=== PATIENT | female | born 1940 | race Caucasian/White ===

== ENCOUNTER 2016-11-23 05:38 | Outpatient (CLI) | payer MEDICARE, OTHER ==
[~2016-11-23] VITALS: Ht 152.4 cm; Wt 68.1 kg
[~2016-11-23 05:38] MED LIST: ANTI14DR4 OT; CEPH500C PO; CYAN500T2 PO; DIPH-639 PO; FAMO-119 PO; GABA-488 PO; HYDR-3820 PO; INSASP10V SC; INSU100V6 SQ; KETO120S5 TP; LISI-556 PO; LISI20TA PO; LORA0.5T PO; METH500T PO; METO25TA PO; METO5TAB75 PO; MULT-974 PO; OMEG1CAP51 PO; ONDA4TAB11 PO; OXYC-12 PO; PEG15DRO5 OU; PRAV20TA PO; SUCR1TAB36 PO; TAPE50TA11 PO; TEMA30CA PO; TIZA4TAB55 PO; VITA1CAP21 PO; ZOLP10TA5 PO; [UNRECOGNIZED DRUG - CODE] TP
== END 2016-11-23 13:52 ==
LOC: PREOP 05:38
PROVIDERS: ATTEND Surgery
DX: Z01.818 Encounter for other preprocedural examination (principal); R63.4 Abnormal weight loss; R13.10 Dysphagia, unspecified

== ENCOUNTER 2016-12-18 08:02 | Day surgery (SDC) | payer MEDICARE, OTHER ==
[~2016-12-18] VITALS: Ht 152.4 cm; Wt 68.1 kg
[2016-12-18] MEDS ORDERED: NS IV 1000 ML 1,000 ML IV STA (08:07)
[2016-12-18] MEDS ORDERED: MAGNESIUM CITRATE 300 ML BTL PO ONE ×2 (08:45→09:00)
[2016-12-18 09:07] VITALS: BP 149/91
[2016-12-19] MEDS ORDERED: PANT40TA2 PO (16:26)
== END 2016-12-18 09:00 | disposition home or self-care (01) ==
LOC: ENDO 08:02
PROVIDERS: ATTEND Surgery
DX: R63.4 Abnormal weight loss (principal); R13.10 Dysphagia, unspecified; Z53.8 Procedure and treatment not carried out for other reasons

== ENCOUNTER 2016-12-19 12:55 | Day surgery (SDC) | payer MEDICARE, OTHER ==
[~2016-12-19] VITALS: Ht 152.4 cm; Wt 68.1 kg
[2016-12-19] MEDS ORDERED: NS IV 1000 ML 1,000 ML ONE (12:59)
[2016-12-19] MEDS ORDERED: NS IV 1000 ML 1,000 ML IV STA (13:03)
[2016-12-19] MEDS ORDERED: NALOXONE 0.4 MG/ML 1 ML (NARCAN) VIAL IVP PRN (13:15)
[2016-12-19] MEDS ORDERED: MIDAZOLAM 2 MG/2 ML (VERSED) VIAL IVP PRN (13:15)
[2016-12-19] MEDS ORDERED: HURRICAINE EXT TUBE (BENZOCAINE) XX PRN (13:15)
[2016-12-19] MEDS ORDERED: FLUMAZENIL (ROMAZICON) 0.1 MG/ML 5 ML VIAL INJ PRN (13:15)
[2016-12-19] MEDS ORDERED: fentaNYL INJECTION 100 MCG/2 ML AMP IVP PRN (13:15)
--- NOTE | 2016-12-19 14:25 | Diagnostic Imaging Report ---
Three views of the left shoulder. INDICATION: Left shoulder pain after fall. FINDINGS: There is deformity along the inferior aspect of the left humeral head favored to be related to an old injury and degenerative changes. Subchondral sclerosis and joint space narrowing is also seen. No definite acute fracture. No radiopaque foreign body. 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 IMPRESSION: No acute fracture. Dictated by: Dictated on workstation # [id number]
--- NOTE | 2016-12-19 14:27 | Diagnostic Imaging Report ---
Three views of the right shoulder. INDICATION: Fall. FINDINGS: No fracture, dislocation or injury-related foreign body seen. There are surgical anchors along the humeral head noted. There is also a 7 mm ossification at the level of the rotator cuff may relate to prior injury. There is degenerative change at the glenohumeral and acromioclavicular joints with small inferior osteophytes. No acute fracture. IMPRESSION: Degenerative changes. No fracture seen. Dictated by: Dictated on workstation # [id number]
--- NOTE | 2016-12-19 14:39 | Diagnostic Imaging Report ---
PROCEDURE: CT head and CT cervical spine without contrast. TECHNIQUE: Multiple contiguous axial images were obtained through the brain and cervical spine without the use of intravenous contrast. Sagittal and coronal reformations through the cervical spine were then performed. INDICATION: Fall. Neck pain. Right eye bruising. FINDINGS: CT HEAD: There is no intracranial hemorrhage, edema or mass effect. There is periventricular and deep white matter hypodensities compatible with chronic microvascular ischemic changes. No hydrocephalus. No extra-axial fluid collection seen. The calvarium, the paranasal sinuses, and the orbits appear grossly unremarkable. CT CERVICAL SPINE: There is straightening of the cervical curvature. The alignment at the posterior spinal line and facet joints is satisfactory. The vertebral body heights are preserved. There is a anterior fusion changes involving the C3/C4 and C6/C7 levels with no definite osseous bridging seen at these levels. Posterior osteophytes at the C3/L4, C5/C6 and C6/C7 levels are seen. There is multilevel uncovertebral and facet joint hypertrophy with bilateral severe from neural foramina narrowing at C5/C6 and C6/C7. The alignment of the lateral masses of C1 and C2 and atlantooccipital joints is satisfactory. No widening of the predental space. No fracture seen. IMPRESSION: CT HEAD: No intracranial hemorrhage. Chronic white matter ischemic changes. CT CERVICAL SPINE: Advanced degenerative changes. No fracture seen. Dictated by: Dictated on workstation # [id number]
[2016-12-19] MEDS ORDERED: DEXTROSE 50% 50 ML (IMS) SYR ONE (14:45)
[2016-12-19] MEDS ORDERED: PROPOFOL INJECTION 50 ML IV ONE (14:48)
[2016-12-19] MEDS ORDERED: DEXTROSE 50% 50 ML (IMS) SYR IV ONE ×2 (15:00→16:30)
[2016-12-19] MEDS ORDERED: PHENYLEPHRINE 100 MCG/ML 10 ML (ANESTHESIA) SYR ONE (15:25)
[2016-12-19 16:15] VITALS: BP 94/70
[2016-12-19] MEDS ORDERED: PANT40TA2 PO (16:26)
--- NOTE | 2016-12-19 16:33 | Progress Note-Post Operative ---
Post-Operative Progess Note Surgeon (s)/Linting Machine Operator (s) Surgeon GENARO MCPHERSON DO Linting Machine Operator: na Pre-Operative Diagnosis dyphagia, weight loss Post-Operative Diagnosis gastritis, hiatal hernia, colon polyps Procedure & Operative Findings Date of Procedure 12/19/16 Procedure Preformed/Findings egd c biopsy colonoscopy with snare polypectomy x 2 and hot bx polypectomy x 3 Anesthesia Type per warp starter Estimated Blood Loss Estimated blood loss (mL): none Specimens/Packing Specimens Removed antrum, polyps of colon Packing: GENARO Gomez DO December 19, 2016 4:33 pm
[2016-12-19 16:40] VITALS: BP 118/84
[2016-12-19 16:49] VITALS: BP 118/84
--- NOTE | 2016-12-20 05:43 | OPERATIVE REPORT ---
DATE OF SERVICE: 12/19/2016 PREOPERATIVE DIAGNOSES: Dysphagia, weight loss. POSTOPERATIVE DIAGNOSES: Gastritis, hiatal hernia, colon polyps. PROCEDURE: EGD with biopsy and colonoscopy with snare polypectomy x2 and hot biopsy polypectomy x3. ANESTHESIA: Per [employer]. ESTIMATED BLOOD LOSS: None. COMPLICATIONS: None. INDICATIONS: The patient is a 76-year-old female with dysphagia and weight loss. She understands risks and benefits of procedure and wished to proceed. Consent was signed and on the chart. PROCEDURE: The patient was taken to the endoscopy suite, placed in left lateral recumbent position. Timeout was performed. Scope was inserted in mouth, down the esophagus, stomach and into the duodenum without difficulty. There are no polyps, mass or ulcerations within the duodenum. The scope was slowly retracted back into the stomach, where it was further insufflated, with erythematous changes consistent with gastritis. Biopsy of the antrum was obtained. The scope was retroflexed noting a small hiatal hernia. Scope was returned to its normal position noting no other pathology. Scope was then slowly retracted back into the distal esophagus. There are no polyps, masses or ulcerations present. The scope was slowly retracted until completely removed, noting no other pathology. Digital rectal exam was performed. There were no palpable polyps, masses or ulcerations. Scope was inserted in the rectum and advanced all way to the cecum with minimal difficulty. Prep was still particulate with liquids which was irrigated and suctioned, but still difficult to remove 100% of the substances. The terminal ileum was located. No polyps, masses or ulcerations were visualized within the cecum. The scope was slowly retracted back in the ascending colon, polyp was present, which snare polypectomy is performed. This was not able to be suctioned through the channel. Therefore, the scope had to be completely withdrawn removing the polyp. The scope was reinserted into the rectum and advanced all the way back to the cecum where the scope was then continued to be slowly retracted back. In the transverse colon there was no polyps, masses or ulcerations visualized. Within the descending colon there were 2 polyps present, which hot biopsy polypectomy was performed. Within the sigmoid colon there was another small polyp which hot biopsy polypectomy was performed. In the distal sigmoid colon, there was a large polyp present, which snare polypectomy was performed retrieving the scope to retrieve the polyp. The scope was then reinserted back into the rectum and brought out to the site of snare polypectomy. The scope was then slowly retracted back, noting no other pathology. Multiple insertions and retractions were made until the scope was finally removed. The patient tolerated procedure well without any complications. She was taken to the recovery room in stable condition. Would recommend repeat colonoscopy in one year due to the size of polyps and number of polyps. RECOMMENDATIONS: The patient will be started on Protonix 40 mg daily for the gastritis. The patient will follow up in the office in 2 weeks. Job ID: [id number] DocumentID: [id number] Dictated Date: 12/19/2016 16:36:18 Drying Tunnel Operator Date: 12/20/2016 05:43:04 Dictated By: GENARO MCPHERSON DO
== END 2016-12-19 16:48 | disposition home or self-care (01) ==
LOC: ENDO 12:55
PROVIDERS: ATTEND Surgery
DX: K29.70 Gastritis, unspecified, without bleeding (principal); K63.5 Polyp of colon; K44.9 Diaphragmatic hernia without obstruction or gangrene; I10 Essential (primary) hypertension; E11.9 Type 2 diabetes mellitus without complications; K21.9 Gastro-esophageal reflux disease without esophagitis; Z79.899 Other long term (current) drug therapy; M25.511 Pain in right shoulder; M25.512 Pain in left shoulder
CPT/HCPCS: 70450; 72125; 73030; 82962

== ENCOUNTER 2017-02-07 14:15 | Outpatient (RCR) | payer MEDICARE, OTHER ==
[~2017-02-07 14:15] MED LIST changes: +PANT40TA2 PO
== END 2017-03-27 11:49 | disposition home or self-care (01) ==
PROVIDERS: ATTEND Nurse Practitioner Family
DX: R53.1 Weakness (principal)

== ENCOUNTER 2017-07-26 14:18 | Emergency (ER) | payer MEDICARE ==
[~2017-07-26] VITALS: Ht 152.4 cm; Wt 63.5 kg
--- OUTSIDE RECORDS SUMMARY | 2017-07-26 14:27 | XMS REPORT | Clinical Summary ---
Author Author [facility] Organization [facility] Address Unknown Phone Unavailable Care Team Providers Care Technical Planner Name Role Phone PCP Unavailable Source Comments Some departments are not documenting in the electronic medical record. If you do not see the information that you expected, contact Release of Information in the Health Information Management department at [phone] for further assistance in locating additional records.[facility] Allergies Active Allergy Reactions Severity Noted Date Comments Aspirin UNKNOWN 02/24/2012 Triazolam UNKNOWN 02/24/2012 Halicion Current Medications Prescription Sig. Disp. Refills Start End Date Status Date HYPROMELLOSE (GENTEAL OP) Place into or around Active eye(s) as Needed. METOPROLOL SUCCINATE PO Take by mouth. Active LISINOPRIL PO Take by mouth. Active LOVASTATIN PO Take by mouth. Active OMEPRAZOLE PO Take by mouth. Active VENLAFAXINE HCL (EFFEXOR Take by mouth. Active PO) PREGABALIN (LYRICA PO) Take by mouth. Active ZOLPIDEM TARTRATE (AMBIEN Take by mouth. Active PO) OXYCODONE Take by mouth. Active HCL/ACETAMINOPHEN (PERCOCET PO) morphine IR (MSIR) 15 mg Take 15 mg by mouth every Active tablet 4 hours as needed. Insulin Glargine (LANTUS) Inject into area(s) as Active 100 unit/mL Crtg directed. INSULIN ASPART (NOVOLOG Inject into area(s) as Active SC) directed. Active Problems Problem Noted Date Nonproliferative diabetic retinopathy - both eyes 03/20/2012 Diabetic macular edema - left eye 03/20/2012 Overview: Partially responsive to Triessence, s/p Triessence x 5. Treated x 1 with BVCZ without response Dry eye syndrome 03/20/2012 Family History Medical History Relation Name Comments Cancer Diabetes everyone Hypertension Relation Name Status Comments Social History Tobacco Use Types Packs/Day Years Used Date Never Smoker Tobacco Cessation: Counseling Given: No Alcohol Use Drinks/Week oz/Week Comments Yes rare use of alcohol Sex Assigned at Date Recorded Not on file Last Filed Vital Signs Vital Sign Reading Time Taken Blood Pressure 131/77 03/20/2012 11:51 AM CDT Pulse 66 03/20/2012 11:51 AM CDT Temperature - - Respiratory Rate - - Oxygen Saturation - - Inhaled Oxygen - - Concentration Weight 94.3 kg (208 lb) 03/20/2012 11:51 AM CDT Height 152.4 cm (5') 03/20/2012 11:51 AM CDT Body Mass Index 40.62 03/20/2012 11:51 AM CDT Plan of Treatment Health Maintenance Due Date Last Done Comments PHYSICAL (COMPREHENSIVE) 1949 EXAM PERTUSSIS VACCINE 1953 TETANUS VACCINE 1959 DILATED EYE EXAM 1960 FOOT EXAM 1960 HBA1C 1960 MICROALBUMIN 1960 BREAST CANCER SCREENING 1982 COLORECTAL CANCER 1992 SCREENING SHINGLES VACCINE 2002 OSTEOPOROSIS SCREENING 2007 PREVNAR/PNEUMOVAX (#1) 2007 INFLUENZA VACCINE 03/12/2017 Results Not on filefrom Last 3 Months
--- OUTSIDE RECORDS SUMMARY | 2017-07-26 14:27 | XMS REPORT | Clinical Summary ---
Author Author [facility] Address Unknown Phone Unavailable Support Name Relationship Address Phone , Case,Linda ECON Unknown Allergies Active Allergy Reactions Severity Noted Date Comments Adhesive Tape 10/29/2013 Aspirin 10/29/2013 Triazolam 10/29/2013 Current Medications Prescription Sig. Disp. Refills Start End Date Status Date zolpidem (AMBIEN) 5 MG Take 10 mg by mouth Active tablet nightly as needed. venlafaxine (EFFEXOR-XR) Take 75 mg by mouth Active 75 MG 24 hr capsule daily. fish oil (OMEGA-3) 1000 Take 4,000 mg by mouth Active MG capsule daily. gabapentin (NEURONTIN) Take 300 mg by mouth 3 Active 300 MG capsule (three) times daily. LANTUS, insulin glargine, Inject 50 Units into the Active (LANTUS) 100 UNIT/ML skin daily. injection lovastatin (MEVACOR) 20 Take 20 mg by mouth Active MG tablet nightly. pregabalin (LYRICA) 50 MG Take 50 mg by mouth 3 Active capsule (three) times daily. metoprolol succinate Take 25 mg by mouth Active (TOPROL-XL) 25 MG 24 hr daily. tablet novoLOG, insulin aspart, Inject 100 Units into the Active (NOVOLOG) 100 UNIT/ML skin 3 (three) times injection daily before meals. 8 units before each meal Tapentadol HCl (NUCYNTA) Take 50 mg by mouth 2 Active 50 MG TB12 (two) times daily. oxycodone-acetaminophen Take 1 tablet by mouth Active (PERCOCET) 5-325 MG every 4 (four) hours as needed. phenazopyridine Take 100 mg by mouth 3 Active (PYRIDIUM) 100 MG tablet (three) times daily as needed. sertraline (ZOLOFT) 50 MG Take 50 mg by mouth Active tablet daily. temazepam (RESTORIL) 15 Take 15 mg by mouth Active MG capsule nightly as needed. traZODone (DESYREL) 50 MG Take 50 mg by mouth Active tablet nightly. tiZANidine (ZANAFLEX) 4 Take 4 mg by mouth every Active MG tablet 6 (six) hours as needed. Active Problems Problem Noted Date Hypotension (arterial) 11/01/2013 Mental status alteration 11/01/2013 Spinal stenosis 11/01/2013 Family History Medical History Relation Name Comments Cancer Brother Heart attack Brother Heart attack Maternal Grandmother Diabetes Mother Heart attack Mother Relation Name Status Comments Brother Maternal Grandmother Mother Social History Tobacco Use Types Packs/Day Years Used Date Never Smoker Alcohol Use Drinks/Week oz/Week Comments Yes twice a year Sex Assigned at Date Recorded Not on file Last Filed Vital Signs Vital Sign Reading Time Taken Blood Pressure 190/100 06/28/2014 1:38 PM [employer] Pulse - - Temperature - - Respiratory Rate - - Oxygen Saturation - - Inhaled Oxygen - - Concentration Weight 76.7 kg (169 lb) 06/28/2014 1:38 PM [employer] Height 152.4 cm (5') 10/29/2013 1:20 PM CDT Body Mass Index 33.01 06/28/2014 1:38 PM [employer] Plan of Treatment Health Maintenance Due Date Last Done Comments Diabetic Foot Exam 1952 Ophthalmology Exam 1952 DTaP,Tdap,and Td Vaccines 1961 (1 - Tdap) Breast Cancer 1992 Screening-Mammogram Colon Cancer Screening 1992 Zoster Vaccine (#1) 2002 Pneumo-Adult (1 of 2 - 2007 PCV13) Influenza Vaccine (#1) 2017 Results Not on filefrom Last 3 Months
--- OUTSIDE RECORDS SUMMARY | 2017-07-26 14:28 | XMS REPORT ---
Author Author LANIE BRINOES [facility] Address [address] [place] [address] Care Team Providers Care Warehouse Technician Name Role Phone LANIE BRIONES Unavailable PROBLEMS Type Condition ICD9-CM Code FFM40-AL Code Onset Dates Condition Status SNOMED Code Diagnosis Mixed hyperlipidemia E78.2 Active 053896239 Diagnosis Arthritis M19.90 Active 9444019 Diagnosis Essential (primary) hypertension I10 Active 84774042 Problem Type 2 diabetes mellitus with unspecified complications E11.8 Active 418418542 Problem Weight loss, unintentional R63.4 Active 949204287 Problem Dyspepsia R10.13 Active 983594082 Problem Generalized psoriasis L40.1 Active 484919531 Problem Type 2 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 Active 47026909 Problem Neuropathy G62.9 Active 467018512 Condition Depressive disorder, not elsewhere classified 311 Active 07726576 Problem 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 M79.7 Active 32561473 Diagnosis Gastro-esophageal reflux disease with esophagitis K21.0 Active 061911272 Diagnosis Anxiety F41.9 Active 16580644 Diagnosis Chronic pain syndrome G89.4 Active 34841219 Problem oil heaterman 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.4 Active 086759689 Problem Insomnia, unspecified G47.00 Active 962616692 ALLERGIES No Information SOCIAL HISTORY Never Assessed PLAN OF CARE VITAL SIGNS MEDICATIONS Unknown Medications RESULTS No Results PROCEDURES No Known procedures IMMUNIZATIONS No Known Immunizations MEDICAL (GENERAL) HISTORY Type Description Date Medical History Anxiety state, unspecified Medical History Other malaise and fatigue Medical History Essential hypertension, benign Medical History Diabetes with neurological manifestations, type II or unspecified type, not stated as uncontrolled Medical History Unspecified myalgia and myositis Medical History Other organic insomnia Medical History Other chronic pain Medical History Unspecified arthropathy, site unspecified Medical History Pain in joint, shoulder region Medical History Fractured Back 2013 Medical History Arthriis Medical History 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 Medical History Type 2 diabetes mellitus with unspecified complications Medical History Alopecia Surgical History cholecystectomy 2014 Surgical History shoulder arthroscopy, repaired torn rotator cuff on both shoulders 1972, 1977 Surgical History section 1979 Surgical History Neck surgery Surgical History EGD 2014 Hospitalization History Surgery(s) only
--- OUTSIDE RECORDS SUMMARY | 2017-07-26 14:29 | XMS REPORT ---
Author Author LANIE BRIONES [facility] Address [address] [place] [address] Care Team Providers Care Machine Shorthand Reporter Name Role Phone LANIE BRIONES Unavailable PROBLEMS Type Condition ICD9-CM Code DAM86-HO Code Onset Dates Condition Status SNOMED Code Problem Mixed hyperlipidemia E78.2 Active 278863847 Problem Arthritis M19.90 Active 9357790 Problem Essential (primary) hypertension I10 Active 14107726 Problem Type 2 diabetes mellitus with unspecified complications E11.8 Active 612064630 Problem Weight loss, unintentional R63.4 Active 139621969 Problem Dyspepsia R10.13 Active 213385187 Problem Generalized psoriasis L40.1 Active 493667144 Problem Type 2 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 Active 18462670 Problem Neuropathy G62.9 Active 899300093 Problem Depressive disorder, not elsewhere classified 311 Active 82048865 Problem 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 M79.7 Active 70065666 Problem Gastro-esophageal reflux disease with esophagitis K21.0 Active 832068903 Problem Anxiety F41.9 Active 03343103 Problem Chronic pain syndrome G89.4 Active 40021802 Problem exterminator termite 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.4 Active 412308233 Problem Insomnia, unspecified G47.00 Active 697333433 ALLERGIES Substance Reaction Event Type Date Status Halcion Unknown Drug Allergy Aug, Active Famotidine hair loss Drug Allergy Aug, Active Aspirin Abdominal pain Drug Allergy Aug, Active Tape Unknown Non Drug Allergy Aug, Active SOCIAL HISTORY No smoking Hx information available PLAN OF CARE Activity Details Follow Up 4 Weeks Reason:Pain VITAL SIGNS Height 61.5 in 2016-08-14 Weight 154.0 lbs 2016-08-14 Temperature 97.3 degrees Fahrenheit 2016-08-14 Heart Rate 90 bpm 2016-08-14 Respiratory Rate 18 2016-08-14 BMI 28.62 kg/m2 2016-08-14 Blood pressure systolic 138 mmHg 2016-08-14 Blood pressure diastolic 84 mmHg 2016-08-14 MEDICATIONS Medication Instructions Dosage Frequency Start Date End Date Duration Status Insulin Syringes (Disposable) 1 mL 3-4 TIMES DAILY DIRECTED DX 250.00 Active Multivitamin Aug, Active Levemir 100 UNIT/ML Subcutaneous 2 times a day 25 units 12h Active Hydrocodone-Acetaminophen 7.5-325 MG Orally 3 times a day- must last 28 days 1 tablet as needed Active Artificial Tears by ophthalmic route Aug, Active Restoril 30 MG Orally Once a day at night 1 capsule at bedtime as needed Active Zofran ODT 4 MG Orally every 8 hrs prn 1 tablet on the tongue and allow to dissolve Active NovoLog 100 UNIT/ML Subcutaneous 3 times a day with meals 13 units Active B Complex-Vitamin B12 Aug, Active OxyContin 15 MG Orally every 12 hrs 1 tablet 12h Aug, Aug, 28 days Active Lorazepam 2 MG Orally Once a day prn 1 tablet Active Lisinopril 5 MG Orally Once a day take 1 tablet by Oral route every 8 hours REPOSITORY 24h Active Bactroban 2 % Externally Three times a day 1 application to affected area 8h Aug, Active Lyrica 100 MG Orally Twice a day 1 capsule 12h Active Fish Oil 500 mg take 2 Capsule by Oral route 1 time per day Active [place] 31G X 6 MM as directed Active Pravastatin Sodium 20 MG Orally Once a day 1 tablet 24h Active RESULTS Name Result Date Reference Range A1C (IN HOUSE) 2016-08-14 A1C IN HOUSE 12.3 4.3 - 5.6 % Previous A1c 9.1 Lot 0649 Exp date 05/2018 CMP 2016-08-14 Glucose, Serum 531 65-99 BUN 18 8-27 Creatinine, Serum 0.79 0.57-1.00 eGFR If NonAfricn Am 74 >59 eGFR If Africn Am 86 >59 BUN/Creatinine Ratio 23 11-26 Sodium, Serum 133 134-144 Potassium, Serum 4.5 3.5-5.2 Chloride, Serum 91 96-106 Carbon Dioxide, Total 24 18-29 Calcium, Serum 9.5 8.7-10.3 Protein, Total, Serum 7.2 6.0-8.5 Albumin, Serum 4.4 3.5-4.8 Globulin, Total 2.8 1.5-4.5 A/G Ratio 1.6 1.1-2.5 Bilirubin, Total 0.5 0.0-1.2 Alkaline Phosphatase, S 154 39-117 AST (SGOT) 21 0-40 ALT (SGPT) 13 0-32 MICROALBUMIN, URINE (IN HOUSE) 2016-08-15 MICROALBUMIN abnormal Lot # [id number] Exp date Clarity clear Color yellow ALB 30mg/L CRE 50mg/dL A:C (IN HOUSE) 30-300mg/g Control Control Lot # Exp PROCEDURES Procedure Date Ordered Related Diagnosis Body Site GLYCATED HEMOGLOBIN TEST Aug 14, 2016 MICROALBUMIN, SEMIQUANT Aug 14, 2016 Office Visit, Est Pt., Level 4 Aug 14, 2016 [facility] VISIT ESTABLISHED PATIENT Aug 14, 2016 VENIPUNCT, ROUTINE* Aug 14, 2016 [facility] Aug 14, 2016 IMMUNIZATIONS No Known Immunizations
--- OUTSIDE RECORDS SUMMARY | 2017-07-26 14:29 | XMS REPORT ---
Author Author LANIE BRIONES Organization [facility] Address [address] [place] [address] Care Team Providers Care Smoking Pipe Maker Name Role Phone LANIE BRIONES Unavailable PROBLEMS Type Condition ICD9-CM Code AWA70-HS Code Onset Dates Condition Status SNOMED Code Diagnosis Mixed hyperlipidemia E78.2 Active 064956107 Diagnosis Arthritis M19.90 Active 2055465 Diagnosis Essential (primary) hypertension I10 Active 80344371 Problem Type 2 diabetes mellitus with unspecified complications E11.8 Active 525653439 Problem Weight loss, unintentional R63.4 Active 148871997 Problem Dyspepsia R10.13 Active 367058452 Problem Generalized psoriasis L40.1 Active 987776380 Problem Type 2 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 Active 31214253 Problem Neuropathy G62.9 Active 850433844 Condition Depressive disorder, not elsewhere classified 311 Active 29313753 Problem 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 M79.7 Active 16152392 Diagnosis Gastro-esophageal reflux disease with esophagitis K21.0 Active 642021487 Diagnosis Anxiety F41.9 Active 94864812 Diagnosis Chronic pain syndrome G89.4 Active 47545139 Problem harp regulator 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.4 Active 368374602 Problem Insomnia, unspecified G47.00 Active 888790726 ALLERGIES No Information SOCIAL HISTORY Never Assessed PLAN OF CARE VITAL SIGNS MEDICATIONS Unknown Medications RESULTS No Results PROCEDURES Procedure Date Ordered Result Body Site LAB NOT BILLED BY [facility] January 02, 2017 VENIPUNCT, ROUTINE* January 02, 2017 IMMUNIZATIONS No Known Immunizations MEDICAL (GENERAL) HISTORY [...]
--- OUTSIDE RECORDS SUMMARY | 2017-07-26 14:30 | XMS REPORT ---
Author Author LANIE BRIONES [facility] Address [address] [place] [address] Care Team Providers Care Pretzel Twister Name Role Phone LANIE BRIONES Unavailable PROBLEMS Type Condition ICD9-CM Code [id number] Code Onset Dates Condition Status SNOMED Code Problem Mixed hyperlipidemia E78.2 Active 397147215 Problem Arthritis M19.90 Active 4131536 Problem Essential (primary) hypertension I10 Active 60157660 Problem Type 2 diabetes mellitus with unspecified complications E11.8 Active 843372548 Problem Weight loss, unintentional R63.4 Active 175315068 Problem Dyspepsia R10.13 Active 388768576 Problem Generalized psoriasis L40.1 Active 595471792 Problem Type 2 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 Active 21554220 Problem Neuropathy G62.9 Active 697119012 Problem Depressive disorder, not elsewhere classified 311 Active 65060109 Problem 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 M79.7 Active 61338597 Problem Gastro-esophageal reflux disease with esophagitis K21.0 Active 539831140 Problem Anxiety F41.9 Active 49393726 Problem Chronic pain syndrome G89.4 Active 88763569 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 Active 203381932 Problem Insomnia, unspecified G47.00 Active 014371130 ALLERGIES Substance Reaction Event Type Date Status Halcion Unknown Drug Allergy Aug, Active Famotidine hair loss Drug Allergy Aug, Active Darvocet-N 100 hallucinations Drug Allergy Aug, Active Aspirin Abdominal pain Drug Allergy Aug, Active Tape Unknown Non Drug Allergy Aug, Active SOCIAL HISTORY No smoking Hx information available PLAN OF CARE Activity Details Follow Up 3 Months Reason:Pain/DM VITAL SIGNS Height 61.5 in 2016-09-11 Weight 153 lbs 2016-09-11 Temperature 97.5 degrees Fahrenheit 2016-09-11 Heart Rate 100 bpm 2016-09-11 Respiratory Rate 20 2016-09-11 BMI 28.44 kg/m2 2016-09-11 Blood pressure systolic 128 mmHg 2016-09-11 Blood pressure diastolic 76 mmHg 2016-09-11 MEDICATIONS Medication Instructions Dosage Frequency Start Date End Date Duration Status B Complex-Vitamin B12 Aug, Active Levemir 100 UNIT/ML Subcutaneous 2 times a day 25 units 12h Active Lyrica 100 MG Orally Twice a day 1 capsule 12h Active OxyContin 15 MG Orally every 12 hrs 1 tablet 12h Aug, 28 days Active Hydrocodone-Acetaminophen 7.5-325 MG Orally 3 times a day- must last 28 days 1 tablet as needed Active Pravastatin Sodium 20 MG Orally Once a day 1 tablet 24h Active Lisinopril 5 MG Orally Once a day take 1 tablet by Oral route every 8 hours REPOSITORY 24h Active [place] 31G X 6 MM as directed Active Zofran ODT 4 MG Orally every 8 hrs prn 1 tablet on the tongue and allow to dissolve Active NovoLog 100 UNIT/ML Subcutaneous 3 times a day with meals 13 units Active Artificial Tears by ophthalmic route Aug, Active Insulin Syringes (Disposable) 1 mL 3-4 TIMES DAILY DIRECTED DX 250.00 Active Restoril 30 MG Orally Once a day at night 1 capsule at bedtime as needed Active Fish Oil 500 mg take 2 Capsule by Oral route 1 time per day Active Lorazepam 2 MG Orally Once a day prn 1 tablet Active Multivitamin Aug, Active RESULTS Name Result Date Reference Range HEPATITIS PROFILE 2016-09-11 Hep A Ab, IgM Negative Negative HBsAg Screen Negative Negative Hep B Core Ab, IgM Negative Negative Hep C Virus Ab <0.1 0.0-0.9 PROCEDURES Procedure Date Ordered Related Diagnosis Body Site [facility] VISIT ESTABLISHED PATIENT Sep 11, 2016 Office Visit, Est Pt., Level 4 Sep 11, 2016 VENIPUNCT, ROUTINE* Sep 11, [address] [facility] Sep 11, 2016 IMMUNIZATIONS No Known Immunizations
--- OUTSIDE RECORDS SUMMARY | 2017-07-26 14:30 | XMS REPORT ---
Author Author LANIE BRIONES [facility] Address [address] [place] [address] Care Team Providers Care Mobile Sales Assistant Name Role Phone LANIE BRIONES Unavailable PROBLEMS Type Condition ICD9-CM Code [id number] Code Onset Dates Condition Status SNOMED Code Diagnosis Mixed hyperlipidemia E78.2 Active 200498248 Diagnosis Arthritis M19.90 Active 7476370 Diagnosis Essential (primary) hypertension I10 Active 07168747 Problem Type 2 diabetes mellitus with unspecified complications E11.8 Active 784249904 Problem Weight loss, unintentional R63.4 Active 063203341 Problem Dyspepsia R10.13 Active 117890959 Problem Generalized psoriasis L40.1 Active 533723358 Problem Type 2 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 Active 19726711 Problem Neuropathy G62.9 Active 138601926 Condition Depressive disorder, not elsewhere classified 311 Active 67193928 Problem 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 M79.7 Active 74203793 Diagnosis Gastro-esophageal reflux disease with esophagitis K21.0 Active 384611323 Diagnosis Anxiety F41.9 Active 90683358 Diagnosis Chronic pain syndrome G89.4 Active 91725833 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 Active 660876679 Problem Insomnia, unspecified G47.00 Active 405516090 ALLERGIES No Information SOCIAL HISTORY Never Assessed PLAN OF CARE VITAL SIGNS MEDICATIONS Medication Instructions Dosage Frequency Start Date End Date Duration Status OxyContin 15 MG Orally every 12 hrs 1 tablet 12h Aug, 28 days Active RESULTS No Results PROCEDURES Procedure Date Ordered Result Body Site FLUARIX QUAD P-FREE 3 AND UP .50 2015October 10, 2016 SINGLE IMMUNIZATION ADMIN October 10, 2016 IMMUNIZATIONS Vaccine Route Administration Date Status FLUARIX QUAD P-FREE 3 AND UP .50 2015 IM Intramuscular October 10, 2016 Administered MEDICAL (GENERAL) HISTORY Type Description Date Medical [...] repaired torn rotator cuff on both shoulders 1977 Surgical History section 1979 Surgical History Neck surgery Surgical History EGD 2014 Hospitalization History Surgery(s) only
--- OUTSIDE RECORDS SUMMARY | 2017-07-26 14:30 | XMS REPORT ---
Author Author LANIE BRIONES [facility] Address [address] [place] [address] Care Team Providers Care Bottom Stainer Name Role Phone LANIE BRIONES Unavailable PROBLEMS Type Condition ICD9-CM Code [id number] Code Onset Dates Condition Status SNOMED Code Problem Mixed hyperlipidemia E78.2 Active 529682831 Problem Arthritis M19.90 Active 4959943 Problem Essential (primary) hypertension I10 Active 47063705 Problem Type 2 diabetes mellitus with unspecified complications E11.8 Active 919972440 Problem Weight loss, unintentional R63.4 Active 878259258 Problem Dyspepsia R10.13 Active 584622860 Problem Generalized psoriasis L40.1 Active 174720939 Problem Type 2 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 Active 29990424 Problem Neuropathy G62.9 Active 807963277 Problem Depressive disorder, not elsewhere classified 311 Active 13908879 Problem 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 M79.7 Active 32786730 Problem Gastro-esophageal reflux disease with esophagitis K21.0 Active 360451352 Problem Anxiety F41.9 Active 99348303 Problem Chronic pain syndrome G89.4 Active 46817189 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
--- OUTSIDE RECORDS SUMMARY | 2017-07-26 14:31 | XMS REPORT ---
Author Author LANIE BRIONES [facility] Address [address] [place] [address] Care Team Providers Care Labor Law Professor Name Role Phone LANIE BRIONES Unavailable PROBLEMS Type Condition ICD9-CM Code QNP32-OV Code Onset Dates Condition Status SNOMED Code Diagnosis Mixed hyperlipidemia E78.2 Active 961864277 Diagnosis Arthritis M19.90 Active 9884311 Diagnosis Essential (primary) hypertension I10 Active 08436201 Problem Type 2 diabetes mellitus with unspecified complications E11.8 Active 596013090 Problem Weight loss, unintentional R63.4 Active 911017588 Problem Dyspepsia R10.13 Active 655771213 Problem Generalized psoriasis L40.1 Active 654381101 Problem Type 2 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 Active 97871477 Problem Neuropathy G62.9 Active 716324393 Condition Depressive disorder, not elsewhere classified 311 Active 96245632 Problem 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 M79.7 Active 81206727 Diagnosis Gastro-esophageal reflux disease with esophagitis K21.0 Active 249350270 Diagnosis Anxiety F41.9 Active 28189569 Diagnosis Chronic pain syndrome G89.4 Active 90539945 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
--- OUTSIDE RECORDS SUMMARY | 2017-07-26 14:32 | XMS REPORT ---
Author Author LANIE BRIONES [facility] Address [address] [place] [address] Care Team Providers Care Verifying Specialist Name Role Phone LANIE BRIONES Unavailable PROBLEMS Type Condition ICD9-CM Code [id number] Code Onset Dates Condition Status SNOMED Code Problem Arthritis M19.90 Active 5908843 Problem Anxiety F41.9 Active 55308510 Problem Mixed hyperlipidemia E78.2 Active 155419766 Problem Type 2 diabetes mellitus with unspecified complications E11.8 Active 568441551 Problem Weight loss, unintentional R63.4 Active 818124835 Problem Dyspepsia R10.13 Active 376857883 Problem Generalized psoriasis L40.1 Active 403599520 Problem Type 2 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 Active 13066587 Problem Neuropathy G62.9 Active 994791007 Problem Depressive disorder, not elsewhere classified 311 Active 91035960 Problem Insomnia, unspecified G47.00 Active 016890195 Problem Essential (primary) hypertension I10 Active 61815093 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 Active 835730942 Problem Chronic pain syndrome G89.4 Active 48477510 Problem 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 M79.7 Active 90231240 Problem Gastro-esophageal reflux disease with esophagitis K21.0 Active 455396396 ALLERGIES Unknown Allergies SOCIAL HISTORY No smoking Hx information available PLAN OF CARE VITAL SIGNS MEDICATIONS Medication Instructions Dosage Frequency Start Date End Date Duration Status Lorazepam 2 MG Orally Once a day prn 1 tablet Active Hydrocodone-Acetaminophen 7.5-325 MG Orally 3 times a day- must last 28 days 1 tablet as needed Active Temazepam 30 MG TAKE ONE CAPSULE BY MOUTH AT BEDTIME NEEDED Active RESULTS No Results PROCEDURES No Known procedures IMMUNIZATIONS No Known Immunizations
--- OUTSIDE RECORDS SUMMARY | 2017-07-26 14:32 | XMS REPORT ---
Author Author LANIE BRIONES [facility] Address [address] [place] [address] Care Team Providers Care Space Controller Name Role Phone LANIE BRIONES Unavailable PROBLEMS Type Condition ICD9-CM Code [id number] Code Onset Dates Condition Status SNOMED Code Problem Mixed hyperlipidemia E78.2 Active 351144912 Problem Arthritis M19.90 Active 3038651 Problem Essential (primary) hypertension I10 Active 07911047 Problem Type 2 diabetes mellitus with unspecified complications E11.8 Active 364254008 Problem Weight loss, unintentional R63.4 Active 175046397 Problem Dyspepsia R10.13 Active 908015143 Problem Generalized psoriasis L40.1 Active 259710492 Problem Type 2 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 Active 67484510 Problem Neuropathy G62.9 Active 849753464 Problem Depressive disorder, not elsewhere classified 311 Active 49540143 Problem 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 M79.7 Active 54240352 Problem Gastro-esophageal reflux disease with esophagitis K21.0 Active 290143253 Problem Anxiety F41.9 Active 16589484 Problem Chronic pain syndrome G89.4 Active 60435583 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
--- OUTSIDE RECORDS SUMMARY | 2017-07-26 14:33 | XMS REPORT | Continuity of Care Document ---
Author Author [facility] [employer] Organization [facility]. Address Unknown Phone Unavailable Allergies Active Description Code Type Severity Reaction Onset Reported/Identified Relationship to Patient Clinical Status Yes Aspirin X287 Drug Allergy Unknown STOMACH BURNING 04/30/2014 Yes PAIN PILL PAIN PILL Drug Allergy Unknown N/A 04/30/2014 Yes aspirin Drug Allergy N/A N/A 08/16/2014 Yes Halcion Drug Allergy N/A N/A 08/16/2014 Yes TAPE TAPE Mild RASH 11/23/2016 Yes aspirin [id number] Drug Allergy Unknown N/A 11/23/2016 Yes hydromorphone [id number] Drug Allergy Unknown N/A 11/23/2016 Yes triazolam [id number] Drug Allergy Unknown N/A 11/23/2016 Yes famotidine [id number] Drug Allergy Severe HAIR LOSS 01/04/2017 Medications There is no data. Problems Date Dx Coded Attending Type Code Diagnosis Diagnosed By 04/30/2014 Crescencio Knox 458.9 04/30/2014 Crescencio nKox 780.2 08/16/2014 NUVIA WINKLER APRN 401.1 HYPERTENSION, BENIGN ESSENTIAL 08/16/2014 NUVIA WINKLER APRN 780.79 OTHER MALAISE AND FATIGUE 08/16/2014 MADL SPECIAL EDUCATION CURRICULUM SPECIALIST, LANIE L 401.1 HYPERTENSION, BENIGN ESSENTIAL 08/16/2014 MADL SPECIAL EDUCATION CURRICULUM SPECIALIST, LANIE L 780.79 OTHER MALAISE AND FATIGUE 08/16/2014 MADL SPECIAL EDUCATION CURRICULUM SPECIALIST, LANIE L 401.1 HYPERTENSION, BENIGN ESSENTIAL 08/16/2014 MADL SPECIAL EDUCATION CURRICULUM SPECIALIST, LANIE L 780.79 OTHER MALAISE AND FATIGUE 08/16/2014 VIRAMONTES DO, CARY K 401.1 HYPERTENSION, BENIGN ESSENTIAL 08/16/2014 VIRAMONTES DO CARY K 780.79 OTHER MALAISE AND FATIGUE 08/18/2014 MADL SPECIAL EDUCATION CURRICULUM SPECIALIST, LANIE L 250.60 DIABETES WITH NEUROLOGICAL MANIFESTATIONS TYPE II OR UNSPECIFIED TYPE NOT STATED UNCONTROLLED 08/18/2014 MADL SPECIAL EDUCATION CURRICULUM SPECIALIST, LANIE L 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 08/18/2014 MADL SPECIAL EDUCATION CURRICULUM SPECIALIST, LANIE L 338.29 OTHER CHRONIC PAIN 08/18/2014 MADL SPECIAL EDUCATION CURRICULUM SPECIALIST, LANIE L 729.1 MYALGIA AND MYOSITIS UNSPECIFIED 08/18/2014 MADL SPECIAL EDUCATION CURRICULUM SPECIALIST, LANIE L 250.60 DIABETES WITH NEUROLOGICAL MANIFESTATIONS TYPE II OR UNSPECIFIED TYPE NOT STATED UNCONTROLLED 08/18/2014 MADL SPECIAL EDUCATION CURRICULUM SPECIALIST, LANIE L 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 08/18/2014 MADL SPECIAL EDUCATION CURRICULUM SPECIALIST, LANIE L 338.29 OTHER CHRONIC PAIN 08/18/2014 MADL SPECIAL EDUCATION CURRICULUM SPECIALIST, LANIE L 729.1 MYALGIA AND MYOSITIS UNSPECIFIED 08/18/2014 CARY VIRAMONTES DO K 250.60 DIABETES WITH NEUROLOGICAL MANIFESTATIONS TYPE II OR UNSPECIFIED TYPE NOT STATED UNCONTROLLED 08/18/2014 CARY VIRAMONTES DO 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 08/18/2014 CARY VIRAMONTES DO K 338.29 OTHER CHRONIC PAIN 08/18/2014 CARY VIRAMONTES DO 729.1 MYALGIA AND MYOSITIS UNSPECIFIED 08/25/2014 LANDON BARRIOS DO Ot 250.00 DIAB CRISS WO COMPL, TYPE II OR UNSPEC TY 08/25/2014 LANDON BARRIOS DO Ot 272.4 HYPERLIPIDEMIA NEC/NOS 08/25/2014 LANDON BARRIOS DO Ot 401.9 HYPERTENSION NOS 08/25/2014 LANDON BARRIOS DO Ot 564.00 UNSPEC CONSTIPATION 08/25/2014 LANDON BARRIOS DO Ot 571.8 CHRONIC LIVER DIS NEC 08/25/2014 LANDON BARRIOS DO, Ot 574.00 CHOLELITH W AC CHOLECYST 08/25/2014 LANDON BARRIOS DO Ot 599.0 URIN TRACT INFECTION NOS 08/25/2014 LANDON BARRIOS DO, Ot V58.67 LONG-TERM (CURRENT) USE OF INSULIN 09/16/2014 LANIE BRIONES APRN 300.00 ANXIETY UNSPEC 09/16/2014 CARY VIRAMONTES DO 300.00 ANXIETY UNSPEC 10/08/2014 CARY VIRAMONTES DO 716.90 ARTHRITIS/ ARTHROPATHY, UNSPECIFIED 10/08/2014 VIRAMONTES CARY K 719.41 PAIN IN JOINT INVOLVING SHOULDER REGION 11/10/2014 CHARLETTE CHAPPELL SPECIAL EDUCATION CURRICULUM SPECIALIST Ot 373.11 HORDEOLUM EXTERNUM 11/10/2014 CHARLETTE CHAPPELL SPECIAL EDUCATION CURRICULUM SPECIALIST Ot 379.93 REDNESS/DISCHARGE OF EYE 12/08/2014 JEANNE DANG MD Ot 250.00 DIAB CRISS WO COMPL, TYPE II OR UNSPEC TY 12/08/2014 JEANNE DANG MD Ot 272.4 HYPERLIPIDEMIA NEC/NOS 12/08/2014 JEANNE DANG MD Ot 355.9 MONONEURITIS NOS 12/08/2014 JEANNE DANG MD Ot 401.9 HYPERTENSION NOS 12/08/2014 JEANNE DANG MD Ot 584.9 ACUTE RENAL FAILURE, UNSPECIFIED 12/08/2014 JEANNE DANG MD Ot 805.2 FX DORSAL VERTEBRA-CLOSE 12/08/2014 JEANNE DANG MD Ot 816.01 FX MID/PRX PHAL, HAND-CL 12/08/2014 JEANNE DANG MD Ot 873.42 OPEN WOUND OF FOREHEAD 12/08/2014 JEANNE DANG MD Ot E000.8 OTHER EXTERNAL CAUSE STATUS 12/08/2014 JEANNE DANG MD Ot E849.0 ACCIDENT IN HOME 12/08/2014 JEANNE DANG MD Ot E885.9 FALL FROM SLIPPING, TRIPPING, OR STUMBLI 12/08/2014 JEANNE DANG MD Ot V06.1 [id number], COMBINED [ 12/08/2014 JEANNE DANG MD Ot V15.88 HISTORY OF FALL 12/08/2014 JEANNE DANG MD Ot V58.67 LONG-TERM (CURRENT) USE OF INSULIN 12/08/2014 JEANNE DANG MD Ot V58.69 OT MED,LT,CURRENT USE 01/10/2015 AKHIL MCCOY DO Ot 723.0 02/02/2015 AKHIL MCCOY DO Ot 723.0 02/14/2015 AKHIL MCCOY DO Ot 723.0 02/14/2015 SELENA JEFFERSON MD Ot 338.4 CHRONIC PAIN SYNDROME 02/14/2015 SELENA JEFFERSON MD Ot 722.52 LUMB/LUMBOSAC DISC DEGEN 02/14/2015 SELENA JEFFERSON MD Ot 729.1 MYALGIA AND MYOSITIS NOS 02/14/2015 SELENA JEFFERSON MD Ot V58.69 OT MED,LT,CURRENT USE 04/06/2015 NADINE DO AKHIL Aniket Ot 723.0 04/06/2015 LANDON MISHRA DO Ot 250.61 DIAB W NEURO MANIFEST, TYPE I [JUVENILE 04/06/2015 LANDON MISHRA DO Ot 536.3 GASTROPARESIS 04/06/2015 LANDON MISHRA DO Ot 787.01 NAUSEA WITH VOMITING 07/18/2015 AKHIL MCCOY DO Ot 723.0 07/19/2015 CHARLETTE CHAPPELL APRN Ot F17.210 NICOTINE DEPENDENCE, CIGARETTES, UNCOMPL 07/19/2015 CHARLETTE CHAPPELL APRN Ot L21.9 SEBORRHEIC DERMATITIS, UNSPECIFIED 07/19/2015 AKHIL MCCOY DO Ot 723.0 07/19/2015 AKHIL MCCOY DO Ot 723.0 07/19/2015 AKHIL MCCOY DO Ot 723.0 11/02/2015 AKHIL MCCOY DO Ot 723.0 11/02/2015 AKHIL MCCOY DO Ot 723.0 11/18/2015 AKHIL MCCOY DO Ot 723.0 11/18/2015 SELENA JEFFERSON MD Ot M51.16 INTERVERTEBRAL DISC DISORDERS W RADICULO 11/18/2015 SELENA JEFFERSON MD Ot Z79.899 OTHER TRAINING INTERN (CURRENT) DRUG THERAPY 06/08/2016 AKHIL MCCOY DO Ot 723.0 CERVICAL SPINAL STENOSIS 06/12/2016 AKHIL CMCOY DO Ot M48.06 SPINAL STENOSIS, LUMBAR REGION 06/12/2016 AKHIL MCCOY DO Ot M54.9 DORSALGIA, UNSPECIFIED 06/12/2016 AKHIL MCCOY DO Ot M80.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 W CURRENT PATH FRACTURE 06/14/2016 AKHIL MCCOY DO Ot M48.06 SPINAL STENOSIS, LUMBAR REGION 06/14/2016 AKHIL MCCOY DO Ot M54.9 DORSALGIA, UNSPECIFIED 06/14/2016 AKHIL MCCOY DO Ot M80.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 W CURRENT PATH FRACTURE 06/29/2016 AKHIL MCCOY DO Ot M48.06 SPINAL STENOSIS, LUMBAR REGION 06/29/2016 AKHIL MCCOY DO Ot M54.9 DORSALGIA, UNSPECIFIED 06/29/2016 AKHLI MCCOY DO Ot M80.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 W CURRENT PATH FRACTURE 09/24/2016 AKHIL MCCOY DO Ot M48.06 SPINAL STENOSIS, LUMBAR REGION 09/24/2016 AKHIL MCCOY DO Ot M54.9 DORSALGIA, UNSPECIFIED 09/24/2016 AKHIL MCCOY DO Ot M80.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 W CURRENT PATH FRACTURE 11/23/2016 GENARO MCPHERSON DO Ot R13.10 DYSPHAGIA, UNSPECIFIED 11/23/2016 GENARO MCPHERSON DO Ot R63.4 ABNORMAL WEIGHT LOSS 11/23/2016 GENARO MCPHERSON DO Ot Z01.818 ENCOUNTER FOR OTHER PREPROCEDURAL EXAMIN 11/26/2016 GENARO MCPHERSON DO Ot R13.10 DYSPHAGIA, UNSPECIFIED 11/26/2016 GENARO MCPHERSON DO Ot R63.4 ABNORMAL WEIGHT LOSS 11/26/2016 GENARO MCPHERSON DO Ot Z01.818 ENCOUNTER FOR OTHER PREPROCEDURAL EXAMIN 12/18/2016 GENARO MCPHERSON DO Ot R13.10 DYSPHAGIA, UNSPECIFIED 12/18/2016 GENARO MCPHERSON DO Ot R63.4 ABNORMAL WEIGHT LOSS 12/18/2016 GENARO MCPHERSON DO Ot Z53.8 PROCEDURE AND TREATMENT NOT CARRIED OUT 12/19/2016 GENARO MCPHERSON DO Ot R13.10 DYSPHAGIA, UNSPECIFIED 12/19/2016 GENARO MCPHERSON DO Ot R63.4 ABNORMAL WEIGHT LOSS 12/19/2016 GENARO MCPHERSON DO Ot Z53.8 PROCEDURE AND TREATMENT NOT CARRIED OUT 12/19/2016 GENARO MCPHERSON DO Ot E11.9 TYPE 2 DIABETES MELLITUS WITHOUT COMPLIC 12/19/2016 GENARO MCPHERSON DO Ot I10 ESSENTIAL (PRIMARY) HYPERTENSION 12/19/2016 GENARO MCPHERSON DO Ot K21.9 GASTRO-ESOPHAGEAL REFLUX DISEASE WITHOUT 12/19/2016 GENARO MCPHERSON DO Ot K29.70 GASTRITIS, UNSPECIFIED, WITHOUT BLEEDING 12/19/2016 GENARO MCPHERSON DO Ot K44.9 DIAPHRAGMATIC HERNIA WITHOUT OBSTRUCTION 12/19/2016 GENARO MCPHERSON DO Ot K63.5 POLYP OF COLON 12/19/2016 GENARO MCPHERSON DO Ot M25.511 PAIN IN RIGHT SHOULDER 12/19/2016 GENARO MCPHERSON DO Ot M25.512 PAIN IN LEFT SHOULDER 12/19/2016 GENARO MCPHERSON DO Ot Z79.899 OTHER TRAINING INTERN (CURRENT) DRUG THERAPY 12/20/2016 GENARO MCPHERSON DO Ot E11.9 TYPE 2 DIABETES MELLITUS WITHOUT COMPLIC 12/20/2016 GENARO MCPHERSON DO Ot I10 ESSENTIAL (PRIMARY) HYPERTENSION 12/20/2016 GENARO MCPHERSON DO Ot K21.9 GASTRO-ESOPHAGEAL REFLUX DISEASE WITHOUT 12/20/2016 GENARO MCPHERSON DO Ot K29.70 GASTRITIS, UNSPECIFIED, WITHOUT BLEEDING 12/20/2016 GENARO MCPHERSON DO Ot K44.9 DIAPHRAGMATIC HERNIA WITHOUT OBSTRUCTION 12/20/2016 GENARO MCPHERSON DO Ot K63.5 POLYP OF COLON 12/20/2016 GENARO MCPHERSON DO Ot M25.511 PAIN IN RIGHT SHOULDER 12/20/2016 GENARO MCPHERSON DO Ot M25.512 PAIN IN LEFT SHOULDER 12/20/2016 GENARO MCPHERSON DO Ot Z79.899 OTHER GROUP HOME (CURRENT) DRUG THERAPY 03/20/2017 GENARO MCPHERSON DO Ot R13.10 DYSPHAGIA, UNSPECIFIED 03/20/2017 GENARO MCPHERSON DO Ot R63.4 ABNORMAL WEIGHT LOSS 03/20/2017 GENARO MCPHERSON DO Ot Z53.8 PROCEDURE AND TREATMENT NOT CARRIED OUT 03/27/2017 LANIE BRIONES Ot R53.1 WEAKNESS 04/04/2017 AKHIL MCCOY DO Ot 723.0 CERVICAL SPINAL STENOSIS 04/04/2017 AKHIL MCCOY DO Ot M48.06 SPINAL STENOSIS, LUMBAR REGION 04/04/2017 AKHIL MCCOY DO Ot M54.9 DORSALGIA, UNSPECIFIED 04/04/2017 AKHIL MCCOY DO Ot M80.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 W CURRENT PATH FRACTURE Procedures Code Description [place] [address] ROUTINE VENIPUNCTURE 08/18/2014 28620 TSH 08/18/2014 53004 AMERITOX 08/18/2014 46883 A1C (IN-HOUSE) 08/18/2014 93198 MICRO ALBUMIN-IN HOUSE 08/18/2014 03608 CBC 08/18/2014 83066 CMP 08/18/2014 1635126 GFR CALC (RESULT ONLY) 08/18/2014 56772 MICROALBUMIN 08/18/2014 51.23 LAPAROSCOPIC CHOLECYSTECTOMY 08/24/2014 87.53 INTRAOPER CHOLANGIOGRAM 08/24/2014 Results Test Result Range Capillary blood glucose measurement by glucometer (mass/volume) - 12/19/16 14: 45 Capillary blood glucose measurement by glucometer (mass/volume) 72 mg/dL 70-110 Capillary blood glucose measurement by glucometer (mass/volume) - 12/19/16 16: 03 Capillary blood glucose measurement by glucometer (mass/volume) 101 mg/dL 70-110 Encounters ACCT No. Visit Date/Time Discharge Status Pt. Type Provider Facility Loc./Unit Complaint [id number] 04/30/2014 12:09:00 04/30/2014 15:24:00 DIS Outpatient Crescencio Knox [facility] COL.RAD [id number] 10/07/2014 13:58:00 Document Registration [id number] 09/24/2014 12:47:00 Document Registration [id number] 09/24/2014 12:47:00 Document Registration [id number] 11/05/2014 13:36:00 11/05/2014 23:59:59 CLS Outpatient CARY VIRAMONTES DO [id number] 09/16/2014 15:41:00 09/16/2014 23:59:59 CLS Outpatient LANIE BRIONES APRN [id number] 08/18/2014 08:53:00 08/18/2014 23:59:59 CLS Outpatient LANIE BRIONES APRN [id number] 08/16/2014 15:22:00 08/16/2014 23:59:59 CLS Outpatient NUVIA WINKLER APRN [id number] 02/07/2017 14:15:00 03/27/2017 11:49:00 DIS Outpatient LANIE BRIONES REPRESENTATIVE PHLEBOTOMY SERVICES [facility] REHAB WEAKNESS AND GAIT INSTABILITY [id number] 03/06/2017 12:00:00 03/06/2017 23:59:59 CLS Preadmit MADL, LANIE L REPRESENTATIVE PHLEBOTOMY SERVICES [facility] CARD SYSTOLIC MURMUR [id number] 12/19/2016 12:55:00 12/19/2016 16:48:00 DIS Outpatient GENARO MCPHERSON DO [facility] ENDO SCREENING [id number] 12/18/2016 08:02:00 12/18/2016 09:00:00 DIS Outpatient GENARO MCPHERSON DO [facility] ENDO WEIGHT LOSS, DYSPHAGIA [id number] 12/13/2016 14:00:00 12/13/2016 14:00:00 CAN Preadmit GENARO MCPHERSON DO [facility] PREOP COLONOSCOPY,EGD [id number] 11/23/2016 05:38:00 11/23/2016 13:52:00 DIS Outpatient GENARO MCPHERSON DO [facility] PREOP SCREENING [id number] 06/22/2016 11:34:00 06/22/2016 23:59:59 CLS Preadmit MADTAMMY CurielA L REPRESENTATIVE PHLEBOTOMY SERVICES [facility] REHAB STRENGTHENING AND MOBILITY [id number] 06/08/2016 11:13:00 06/08/2016 23:59:59 CLS Outpatient AKIHL MCCOY DO [facility] RAD BACK PAIN [id number] 11/18/2015 09:03:00 11/18/2015 10:37:00 DIS Outpatient SELENA JEFFERSON MD [facility] CARD DISC DISORDER WITH LUMBAR RADICULOPATHY [id number] 07/19/2015 14:16:00 07/19/2015 14:47:00 DIS Emergency CHARLETTE CHAPPELL APRN [facility] ER SCALP ITCHING/PAIN HAIR LOSS [id number] 04/06/2015 12:42:00 04/06/2015 17:43:00 DIS Emergency LANDON MISHRA DO [facility] ER NAUSEA/VOMITING ABD PAIN [id number] 02/14/2015 13:07:00 02/14/2015 13:57:00 DIS Outpatient SELENA JEFFERSON MD [facility] CARD DDD LUMBAR [id number] 01/06/2015 10:18:00 01/06/2015 23:59:59 CLS Outpatient AKHIL MCCOY DO [facility] RAD NECK PAIN [id number] 12/06/2014 13:24:00 12/08/2014 14:30:00 DIS Inpatient ALTON AMADOR, JEANNE Marcial [facility] SURGICAL FALL; CLOSED HEAD INJURY; HAND FX; DEBILITY [id number] 11/10/2014 17:49:00 11/10/2014 18:17:00 DIS Emergency CHARLETTE CHAPPELL APRN [facility] ER LEFT EYE IRRITATION [id number] 08/24/2014 05:42:00 08/25/2014 16:05:00 DIS Inpatient LANDON BARRIOS DO [facility] SURGICAL ACUTE CHOLECYSTITIS,CHOLELITHIASIS,N/V [id number] 07/26/2017 14:22:00 ACT Emergency SANGEETHA AMADOR, RACHELE Portillo [facility] ER NEEDS PAIN/ALL MEDS REFILLED
--- NOTE | 2017-07-26 14:49 | ED General ---
General Stated Complaint: NEEDS PAIN/ALL MEDS REFILLED Source of Information: Patient Exam Limitations: No Limitations History of Present Illness Time Seen by Provider: 14:44 Initial Comments To ER with c/o being out of her Temazepam, lorazepam, lyrica, oxycontin, norco 7.5. Sees Patstevan Salgado at [facility] but doesnt have appointment until august. Sates that she had family friends who are doctors who gave her a few "Samples" to get her thru when she initially ran out a few weeks ago, also got some from a heating and ventilating drafter in [place] a few weeks ago while she was there. States morin called [facility] who referred her to ER for refills. Timing/Duration: 1-2 Days Severity: Moderate Allergies and Home Medications Allergies Coded Allergies: famotidine (Verified Allergy, Severe, HAIR LOSS, 01/04/17) NOTIFIED ON 01/02/17 TO MEDICAL RECORDS aspirin (Unverified Allergy, Unknown, 11/23/16) hydromorphone (Unverified Allergy, Unknown, 11/23/16) triazolam (Unverified Allergy, Unknown, 11/23/16) Uncoded Allergies: TAPE (Allergy, Mild, RASH, 11/23/16) Home Medications Cyanocobalamin 500 Mcg Tablet, 1,000 MCG PO HS, (Reported) Diphenhydramine HCl 25 Mg Capsule, 25 MG PO HS PRN for SLEEP, (Reported) Fluocinolone Acetonide 120 Ml Shampoo, 120 ML TP UD, #1 Lather hair daily x1 week for 5 minutes Prescribed by: CHARLETTE CHAPPELL on 07/19/15 1442 Gabapentin 300 Mg Capsule, 300 MG PO TID, (Reported) Hydrocodone/Acetaminophen 1 Each Tablet, 2 EACH PO Q4H PRN for PAIN, (Reported) Insulin Aspart 10 Unit/0.1 Ml Susp, 8 UNIT SC AC, (Reported) Insulin Aspart 10 Unit/0.1 Ml Susp, SC Q4H PRN for BLOOD SUGAR, (Reported) CHECKS BLOOD SUGAR EVERY 4 HOURS USES SLIDING SCALE NEEDED IF BS < 200 = 0 UNITS 200-299 = 2 UNITS 300-349 = 5 UNITS 350-399 = 8 UNITS > 400 = 12 UNITS Insulin Glargine,Hum.rec.anlog 100 Unit/1 Ml Vial, 30 UNIT SQ HS, (Reported) Ketoconazole 120 Ml Shampoo, 120 ML TP UD, #1 Shampoo hair on Tuesdays and Saturdays for 4 weeks. Prescribed by: CHARLETTE CHAPPELL on 07/19/15 1442 Lisinopril 5 Mg Tablet, 5 MG PO DAILY PRN for BLOOD PRESSURE, (Reported) Lorazepam 0.5 Mg Tablet, 0.5 MG PO HS, (Reported) Methocarbamol 500 Mg Tablet, 500 MG PO BID, (Reported) Metoclopramide HCl 5 Mg Tablet, 5 MG PO AC, #60 Ref 0 Prescribed by: LANDON MISHRA on 04/06/15 1725 Multivitamin 1 Each Tablet, 1 TAB PO HS, (Reported) [place]-3 Fatty Acids/Fish Oil 1 Each Capsule, 1,000 MG PO HS, (Reported) Ondansetron 4 Mg Tab.rapdis, 4 MG PO Q4H PRN for NAUSEA/VOMITING, (Reported) Pantoprazole Sodium 40 Mg Tablet.dr, 40 MG PO DAILY for 30 Days, #30 Ref 3 Prescribed by: KARI ZARAGOZA on 12/19/16 1626 Peg 400/Hypromellose/Glycerin 15 Ml Drops, 1-2 DROP OU QID PRN for DRY EYES, ( Reported) Pravastatin Sodium 20 Mg Tablet, 20 MG PO HS, (Reported) Sucralfate 1 Gm Tablet, 1 GM PO AC, #100 Ref 0 Prescribed by: LANDON MISHRA on 04/06/15 1725 Tapentadol Hcl 50 Mg Tab.er.12h, 50 MG PO 0800, 1500, (Reported) Temazepam 30 Mg Capsule, 30 MG PO HS, (Reported) Constitutional: see HPI EENTM: see HPI Respiratory: no symptoms reported Cardiovascular: no symptoms reported Genitourinary: no symptoms reported Musculoskeletal: no symptoms reported Skin: no symptoms reported Psychiatric/Neurological: No Symptoms Reported Hematologic/Lymphatic: No Symptoms Reported Past Xcarowl-Bowyra-Kqfmkg Hx Patient Social History Recent Foreign Travel: No Contact w/Someone Who Travel: No Recent Hopitalizations: No Immunizations Up To Date Tetanus Booster (TDap): Unknown PED Vaccines UTD: No Date of Pneumonia Vaccine: Jun 12, 2014 Date of Influenza Vaccine: May 21, 2016 Seasonal Allergies Seasonal Allergies: No Surgeries Surgeries: Section, Gallbladder, Orthopedic Cardiovascular Cardiac Disorders: Heart Murmur, Hypertension Reproductive System Hx Reproductive Disorders: No Sexually Transmitted Disease: No HIV/AIDS: No Genitourinary Genitourinary Disorders: UTI-Chronic Gastrointestinal Gastrointestinal Disorders: Chronic Constipation, Chronic Diarrhea Musculoskeletal Musculoskeletal Disorders: Chronic Back Pain, Fractures Endocrine Endocrine Disorders: Diabetes, Insulin dep HEENT Loss of Vision: Bilateral Hearing Impairment: Hard of Hearing Psychosocial Behavioral Health Disorders: Sleep Difficulties Blood Transfusions Adverse Reaction to a Blood Tr: No (HAS HAD BLOOD WITH NO REACTION) Family Medical History Family Medial History: Arthritis G8 SISTER Cardiovascular disease 19 MOTHER Diabetes mellitus 19 MOTHER G8 BROTHER Hypertension 19 MOTHER G8 BROTHER G8 BROTHER Myocardial infarction 19 MOTHER G8 BROTHER No Family History of: AIDS Abdominal aortic aneurysm Gordon's disease Alcoholism Alzheimer's disease Aphasia Asthma Cancer of mouth Cataracts Colon cancer Completed stroke Congenital disease Congenital heart disease Coronary thrombosis Cystic fibrosis Deafness or hearing loss Dementia Drug abuse Dysphasia Fibrocystic disease of breast Gastroenteritis Glaucoma Headache disorder Hypercholesterolemia Infertility Kidney disease Neoplasm Not obtainable due to adoption Osteoporosis Parkinson's disease Prostate cancer Psychosocial problem Respiratory disorder Seizure disorder Severe allergy Thyroid disease Tuberculosis Visual disorder Physical Exam Vital Signs Capillary Refill : General Appearance: No Apparent Distress, WD/WN Eyes: Bilateral Eye Normal Inspection, Bilateral Eye PERRL, Bilateral Eye EOMI HEENT: PERRL/EOMI, TMs Normal Neck: Full Range of Motion Respiratory: Normal Breath Sounds, No Accessory Muscle Use, No Respiratory Distress Gastrointestinal: Normal Bowel Sounds, Non Tender, Soft Extremity: Normal Capillary Refill, Normal Inspection Neurologic/Psychiatric: Alert, Oriented x3 Skin: Normal Color, Warm/Dry Progress/Results/Core Measures Suspected Sepsis SIRS Temperature: Pulse: Respiratory Rate: Blood Pressure / Mean: Results/Orders Vital Signs/I&O Capillary Refill : Departure Communication (Admissions) Progress Notes I called [facility] who reports she did not call and inform them that she needed refills and has been a no-show to several appointment. They will see her but Renetta needs to call them first. She has been a no-show to several appointments. Impression Impression: Primary Impression: Chronic pain Disposition: 01 HOME, SELF-CARE Condition: Stable Departure-Patient Inst. Decision time for Depature: 14:48 Referrals: [facility] (PCP/Family) Primary Care Physician Patient Instructions: NO INSTRUCTIONS GIVEN Add. Discharge Instructions: 1. Call [facility] today. The phone number is [phone]. Ask for Vanda. Copy Copies To 1: CARY VIRAMONTES PETER J APRN Jul 26, 2017 14:49
[2017-07-26] MEDS ORDERED: HYDROcodone/APAP 10 MG/325 MG (LORTAB) TAB PO ONE (15:00)
[2017-07-26 15:04] VITALS: BP 152/82
== END 2017-07-26 15:04 | disposition home or self-care (01) ==
LOC: EDUNIT# 14:18 → ER 14:22
DX: G89.29 Other chronic pain (principal); E11.9 Type 2 diabetes mellitus without complications; Z82.49 Family history of ischemic heart disease and other diseases of the circulatory system; Z79.4 Long term (current) use of insulin; Z87.59 Personal history of other complications of pregnancy, childbirth and the puerperium; Z87.19 Personal history of other diseases of the digestive system

== ENCOUNTER → 2017-11-11 | Outpatient (CLI) | payer MEDICARE ==
--- NOTE | 2017-11-11 15:14 | Diagnostic Imaging Report ---
PROCEDURE: MRI lumbar spine. TECHNIQUE: Multiplanar, multisequence MRI of the lumbar spine was performed without contrast. INDICATION: Multiple injuries. Multiple fractures. Lower back pain. Trouble walking. COMPARISON: 06/08/2016. FINDINGS: For the purposes of this exam, last well-formed disc space is denoted at the L5-S1 level. Evaluation of static alignment demonstrates slight grade 1 anterolisthesis at the L4-L5 level. There is no evidence of jumped facets. There are chronic appearing compression deformities of T12 and L2 vertebral bodies. These are stable when compared to 06/08/2016. Otherwise, vertebral body heights are maintained. There is no evidence acute fracture. Evaluation of marrow signal demonstrates multilevel Modic type I endplate change. Otherwise, marrow signal is within normal limits. There is also multilevel intervertebral disc height loss with anterior and posterior disc bulges. Visualized portions of distal cord are unremarkable. Conus terminates at approximately the L2-L3 level. No abnormal intrathecal filling defects are seen. Pre-and paravertebral soft tissue structures are unremarkable. Axial images demonstrate the following: T11-T12: There is posterior displacement of the superior endplate of T12. This is likely related to previous fracture. Again, this is chronic finding compared to prior exams. There is also bilateral facet arthropathy. As a result, there is qgwa-yj-uhekphhb narrowing of the spinal canal and rtcncuvu-iz-gzijlj narrowing of the bilateral neuroforamen. T12-L1: There is broad-based posterior disc bulge and bilateral ligament flavum laxity and facet arthropathy. As a result, there is mild narrowing of spinal canal and bilateral neuroforamen. L1-L2: There is broad-based posterior disc bulge and bilateral facet arthropathy and ligament flavum laxity. As a result, there is mild narrowing of spinal canal and left neuroforamen. There is moderate narrowing on the right as well. L2-L3: There is broad-based posterior disc bulge and bilateral ligament flavum laxity and facet arthropathy. As a result, there is mild narrowing of spinal canal and bilateral neuroforamen. L3-L4: There is broad-based posterior disc bulge and bilateral ligament flavum laxity and facet arthropathy. As a result, there is moderate spinal canal stenosis and moderate narrowing of bilateral neuroforamen. L4-L5: There is diffuse broad-based posterior disc bulge and significant bilateral facet arthropathy and ligament flavum laxity. As a result, there is severe spinal canal stenosis. Thecal sac is narrowed to approximately 5 mm in AP dimension. There is also severe narrowing of the left neuroforamen and ubql-gz-fwvowdlu narrowing on the right. L5-S1: There is posterior disc osteophyte complex formation and bilateral facet arthropathy. As a result, there is moderate narrowing of the bilateral neuroforamen. Spinal canal, however, is unremarkable. IMPRESSION: 1. Advanced multilevel degenerative changes of the lumbar spine, greatest at the L4-L5 level as described above. 2. Chronic compression deformities of the T12 and L2 vertebral bodies. 3. No acute fracture or dislocation of the lumbar spine. Dictated by: Dictated on workstation # [id number]
== END ==
LOC: RAD 13:26
PROVIDERS: ATTEND Physician Assistant
DX: M48.061 Spinal stenosis, lumbar region without neurogenic claudication (principal); M51.26 Other intervertebral disc displacement, lumbar region; M47.816 Spondylosis without myelopathy or radiculopathy, lumbar region; M43.9 Deforming dorsopathy, unspecified; Z87.81 Personal history of (healed) traumatic fracture; Z87.828 Personal history of other (healed) physical injury and trauma
CPT/HCPCS: 72148

== ENCOUNTER 2017-11-22 00:26 | Emergency (ER) | payer MEDICARE, OTHER ==
[~2017-11-22] VITALS: Ht 152.4 cm; Wt 72.6 kg
[2017-11-22] MEDS ORDERED: NS IV 1000 ML 1,000 ML IV ONE (00:32)
--- NOTE | 2017-11-22 00:43 | ED General ---
General Stated Complaint: PAIN Source of Information: Patient, EMS History of Present Illness Date Seen by Provider: Nov 22, 2017 Time Seen by Provider: 00:35 Initial Comments PT ARRIVES VIA EMS FROM HOME EMS WAS CALLED BY FAMILY MEMBER (SON) FOR PT WITH ALTERED MENTAL STATUS ACCUCHECK 223 EMS GAVE NARCAN 1MG WITH IMMEDIATE IMPROVEMENT IN MENTATION AND SLURRING OF SPEECH IMMEDIATELY RESOLVED. --PT REPORTEDLY TOOK HYDROCODONE AT 1700 THIS EVENING ON ARRIVAL PT IS TALKING NON-STOP ABOUT ALL OF HER PAIN MEDICATIONS--STATES SHE USED TO BE ON LIQUID MORPHINE, AND OXYCONTIN AND ANOTHER PAIN MEDICATION, AND "SOMEONE TOOK HER OXYCONTIN AND MORPHINE AWAY" AND NOW SHE TAKES HYDROCODONE 3 TIMES A DAY GOES ON AT LENGTH HOW SHE "FIRED" HER DR, BUT NOW SHE NEEDS HIM AND HE WON'T TAKE HER BACK, AND DR. JEFFERSON ( PAIN MANAGEMENT) HAS LEFT AND NO ONE TOOK OVER HIS PRACTICE, ETC. PT HAS NO COMPLAINTS ON ARRIVAL, OTHER THAN SHE JUST WANTS TO GO HOME AND GO TO SLEEP SON ARRIVES LATER AND STATES HE HAD CHECKED ON HER EARLIER AND SHE STATED THAT SHE WASN'T FEELING WELL, ( NO SPECIFIC COMPLAINT) SO HE CHECKED ON HER AGAIN LATER, AND HE NOTICED THAT SHE WAS SLURRING HER WORDS, THEN HE NOTICED THAT SHE HAD 2 KINDS OF INSULIN OUT, AND THOUGHT SHE TOOK TOO MUCH INSULIN. HE DID NOT CHECK HER BLOOD SUGAR [facility] Allergies and Home Medications Allergies Coded Allergies: famotidine (Verified Allergy, Severe, HAIR LOSS, 01/04/17) NOTIFIED ON 01/02/17 TO MEDICAL RECORDS aspirin (Unverified Allergy, Unknown, 11/23/16) hydromorphone (Unverified Allergy, Unknown, 11/23/16) triazolam (Unverified Allergy, Unknown, 11/23/16) Uncoded Allergies: TAPE (Allergy, Mild, RASH, 11/23/16) Home Medications Cyanocobalamin 500 Mcg Tablet, 1,000 MCG PO HS, (Reported) Diphenhydramine HCl 25 Mg Capsule, 25 MG PO HS PRN for SLEEP, (Reported) Fluocinolone Acetonide 120 Ml Shampoo, 120 ML TP UD Lather hair daily x1 week for 5 minutes Prescribed by: CHARLETTE CHAPPELL on 07/19/15 1442 Gabapentin 300 Mg Capsule, 300 MG PO TID, (Reported) Insulin Aspart 10 Unit/0.1 Ml Susp, 8 UNIT SC AC, (Reported) Insulin Aspart 10 Unit/0.1 Ml Susp, SC Q4H PRN for BLOOD SUGAR, (Reported) CHECKS BLOOD SUGAR EVERY 4 HOURS USES SLIDING SCALE NEEDED IF BS < 200 = 0 UNITS 200-299 = 2 UNITS 300-349 = 5 UNITS 350-399 = 8 UNITS > 400 = 12 UNITS Insulin Glargine,Hum.rec.anlog 100 Unit/1 Ml Vial, 30 UNIT SQ HS, (Reported) Lisinopril 5 Mg Tablet, 5 MG PO DAILY PRN for BLOOD PRESSURE, (Reported) Methocarbamol 500 Mg Tablet, 500 MG PO BID, (Reported) Metoclopramide HCl 5 Mg Tablet, 5 MG PO AC Prescribed by: LANDON MISHRA on 04/06/15 172 Multivitamin 1 Each Tablet, 1 TAB PO HS, (Reported) [place]-3 Fatty Acids/Fish Oil 1 Each Capsule, 1,000 MG PO HS, (Reported) Ondansetron 4 Mg Tab.rapdis, 4 MG PO Q4H PRN for NAUSEA/VOMITING, (Reported) Pantoprazole Sodium 40 Mg Tablet.dr, 40 MG PO DAILY Prescribed by: KARI ZARAGOZA on 12/19/16 1626 Peg 400/Hypromellose/Glycerin 15 Ml Drops, 1-2 DROP OU QID PRN for DRY EYES, ( Reported) Pravastatin Sodium 20 Mg Tablet, 20 MG PO HS, (Reported) Sucralfate 1 Gm Tablet, 1 GM PO AC Prescribed by: LANDON MISHRA on 04/06/15 172 Tapentadol Hcl 50 Mg Tab.er.12h, 50 MG PO 0800, 1500, (Reported) Temazepam 30 Mg Capsule, 30 MG PO HS, (Reported) Patient Home Medication List Home Medication List Reviewed: Yes Review of Systems Constitutional: see HPI Respiratory: no symptoms reported Cardiovascular: no symptoms reported Gastrointestinal: no symptoms reported Genitourinary: no symptoms reported Musculoskeletal: back pain Psychiatric/Neurological: See HPI Past Pigtbpx-Hxgyeh-Gpgcpm Hx Patient Social History Recent Foreign Travel: No Contact w/Someone Who Travel: No Recent Hopitalizations: No Immunizations Up To Date Tetanus Booster (TDap): Unknown PED Vaccines UTD: No Date of Pneumonia Vaccine: Jun 12, 2014 Date of Influenza Vaccine: May 21, 2016 Seasonal Allergies Seasonal Allergies: No Past Medical History Surgeries: Yes (KNEE, SHOULDERS BILAT, CSPINE SURGERY 01/2015; KYPHOPLASTY L2 ; RIGHT HUMERUS FX/ORIF; DESI WITH ERCP FOR RETAINED CBD STONE; EGD/COLONOSCOPY /POLYPECTOMY; BILATERAL CATARACTS) Section, Gallbladder, Orthopedic Respiratory: No Cardiac: Yes (NON-COMPLIANT WITH MEDICATIONS; "SYNCOPAL EPISODES" WITH HYPOTENSION, HYPOGLYCEMIA AND EXCESSIVE NARCOTIC USE) Heart Murmur, Hypertension Neurological: Yes (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) Stroke Reproductive Disorders: No Sexually Transmitted Disease: No HIV/AIDS: No Genitourinary: Yes UTI-Chronic Gastrointestinal: Yes (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; HX OF HEPATITIS A AND C-- NO TREATMENT; JOSE) Liver Disease/Jaundice, Chronic Constipation, Diverticulosis, Pancreatitis, Chronic Diarrhea, Gall Bladder Disease Musculoskeletal: Yes (CHRONIC NECK PAIN ; FREQUENT FALLS; COMPRESSION FRACTURES ; FRACTURE LEFT DISTAL RADIUS; FRACTURE RIGHT HUMERUS; CHRONIC NARCOTIC USE) Chronic Back Pain, Fractures Endocrine: Yes (LONG HISTORY OF NON-COMPLIANCE; OBESITY) Diabetes, Insulin dep HEENT: Yes Loss of Vision: Bilateral Hearing Impairment: Hard of Hearing Cancer: No Psychosocial: Yes Sleep Difficulties, Anxiety Integumentary: No Blood Disorders: No Adverse Reaction/Blood Tranf: No (HAS HAD BLOOD WITH NO REACTION) Family Medical History Arthritis G8 SISTER Cardiovascular disease 19 MOTHER Diabetes mellitus 19 MOTHER G8 BROTHER Hypertension 19 MOTHER G8 BROTHER G8 BROTHER Myocardial infarction 19 MOTHER G8 BROTHER No Family History of: AIDS Abdominal aortic aneurysm Gordon's disease Alcoholism Alzheimer's disease Aphasia Asthma Cancer of mouth Cataracts Colon cancer Completed stroke Congenital disease Congenital heart disease Coronary thrombosis Cystic fibrosis Deafness or hearing loss Dementia Drug abuse Dysphasia Fibrocystic disease of breast Gastroenteritis Glaucoma Headache disorder Hypercholesterolemia Infertility Kidney disease Neoplasm Not obtainable due to adoption Osteoporosis Parkinson's disease Prostate cancer Psychosocial problem Respiratory disorder Seizure disorder Severe allergy Thyroid disease Tuberculosis Visual disorder Physical Exam Vital Signs Vital Signs - First Documented 11/22/17 00:26 Temp 97.1 Pulse 70 Resp 20 B/P (MAP) 130/73 (92) Pulse Ox 95 O2 Delivery Room Air Capillary Refill : General Appearance: No Apparent Distress, WD/WN HEENT: PERRL/EOMI Neck: Normal Inspection Respiratory: Normal Breath Sounds, No Accessory Muscle Use, No Respiratory Distress Cardiovascular: Regular Rate, Rhythm, No Edema, Normal Peripheral Pulses Gastrointestinal: Non Tender, Soft Extremity: Normal Inspection Neurologic/Psychiatric: Alert, Oriented x3, No Motor/Sensory Deficits, Normal Mood/Affect, radio antenna installer II-XII Norm as Tested, Other (SPEECH CLEAR) Skin: Normal Color, Warm/Dry Progress/Results/Core Measures Suspected Sepsis SIRS Temperature: Pulse: Respiratory Rate: Laboratory Tests 11/22/17 00:27: White Blood Count 3.7L Blood Pressure / Mean: Laboratory Tests 11/22/17 00:27: Creatinine 1.00, INR Comment 0.9, Platelet Count 143, Total Bilirubin 0.3 Results/Orders Lab Results Laboratory Tests Test 11/22/17 00:27 11/22/17 00:50 11/22/17 00:57 11/22/17 02:14 Range/Units White Blood Count 3.7 L 4.3-11.0 10^3/uL Red Blood Count 3.31 L 4.35-5.85 10^6/uL Hemoglobin 11.3 L 11.5-16.0 G/DL Hematocrit 33 L 35-52 % Mean Corpuscular Volume 99 80-99 FL Mean Corpuscular Hemoglobin 34 25-34 PG Mean Corpuscular Hemoglobin Concent 34 32-36 G/DL Red Cell Distribution Width 13.9 10.0-14.5 % Platelet Count 143 130-400 10^3/uL Mean Platelet Volume 10.2 7.4-10.4 FL Neutrophils (%) (Auto) 51 42-75 % Lymphocytes (%) (Auto) 40 12-44 % Monocytes (%) (Auto) 6 0-12 % Eosinophils (%) (Auto) 2 0-10 % Basophils (%) (Auto) 1 0-10 % Neutrophils # (Auto) 1.9 1.8-7.8 X 10^3 Lymphocytes # (Auto) 1.5 1.0-4.0 X 10^3 Monocytes # (Auto) 0.2 0.0-1.0 X 10^3 Eosinophils # (Auto) 0.1 0.0-0.3 10^3/uL Basophils # (Auto) 0.0 0.0-0.1 10^3/uL Prothrombin Time 12.6 12.2-14.7 SEC INR Comment 0.9 0.8-1.4 Activated Partial Thromboplast Time 32 24-35 SEC Sodium Level 141 135-145 MMOL/L Potassium Level 3.8 3.6-5.0 MMOL/L Chloride Level 105 98-107 MMOL/L Carbon Dioxide Level 25 21-32 MMOL/L Anion Gap 11 5-14 MMOL/L Blood Urea Nitrogen 25 H 7-18 MG/DL Creatinine 1.00 0.60-1.30 MG/DL Estimat Glomerular Filtration Rate 54 BUN/Creatinine Ratio 25 Glucose Level 185 H 70-105 MG/DL Calcium Level 9.2 8.5-10.1 MG/DL Magnesium Level 2.3 1.8-2.4 MG/DL Total Bilirubin 0.3 0.1-1.0 MG/DL Aspartate Amino Transf (AST/SGOT) 25 5-34 U/L Alanine Aminotransferase (ALT/SGPT) 15 0-55 U/L Alkaline Phosphatase 80 40-136 U/L Total Protein 6.2 L 6.4-8.2 GM/DL Albumin 3.5 3.2-4.5 GM/DL Lipase 47 8-78 U/L TSH [facility] Testing 0.47 0.35-4.94 UIU/ML Salicylates Level < 5.0 L 5.0-20.0 MG/DL Acetaminophen Level < 10 L 10-30 UG/ML Serum Alcohol < 10 <10 MG/DL Urine Color Y Urine Clarity CLEAR Urine pH 5 5-9 Urine Specific Dent 1.010 L 1.016-1.022 Urine Protein NEGATIVE NEGATIVE Urine Glucose (UA) NEGATIVE NEGATIVE Urine Ketones NEGATIVE NEGATIVE Urine Nitrite NEGATIVE NEGATIVE Urine Bilirubin NEGATIVE NEGATIVE Urine Urobilinogen NORMAL NORMAL MG/DL Urine Leukocyte Esterase 1+ H NEGATIVE Urine RBC (Auto) NEGATIVE NEGATIVE Urine RBC NONE /HPF Urine WBC RARE /HPF Urine Squamous Epithelial Cells 0-2 /HPF Urine Crystals NONE /LPF Urine Bacteria NEGATIVE /HPF Urine Casts PRESENT /LPF Urine Hyaline Casts RARE /LPF Urine Mucus NEGATIVE /LPF Urine Culture Indicated NO Urine Opiates Screen POSITIVE H NEGATIVE Urine Oxycodone Screen NEGATIVE NEGATIVE Urine Methadone Screen NEGATIVE NEGATIVE Urine Propoxyphene Screen NEGATIVE NEGATIVE Urine Barbiturates Screen NEGATIVE NEGATIVE Ur Tricyclic Antidepressants Screen NEGATIVE NEGATIVE Urine Phencyclidine Screen NEGATIVE NEGATIVE Urine Amphetamines Screen NEGATIVE NEGATIVE Urine Methamphetamines Screen NEGATIVE NEGATIVE Urine Benzodiazepines Screen POSITIVE H NEGATIVE Urine Cocaine Screen NEGATIVE NEGATIVE Urine Cannabinoids Screen NEGATIVE NEGATIVE Glucometer 152 H 140 H 70-110 MG/DL Test 11/22/17 03:16 11/22/17 04:14 11/22/17 05:16 Range/Units Glucometer 108 94 78 70-110 MG/DL My Orders Orders - KENA HUFFMAN DO Accucheck Stat ONCE (11/22/17 00:32) Saline Lock/Iv-Start (11/22/17 00:32) Monitor-Rhythm Ecg Trace Only (11/22/17 00:32) Acetaminophen (11/22/17 00:32) Alcohol (11/22/17 00:32) Cbc With Automated Diff (11/22/17 00:32) Comprehensive Metabolic Panel (11/22/17 00:32) Drug Screen Stat (Urine) (11/22/17 00:32) Lipase (11/22/17 00:32) Magnesium (11/22/17 00:32) Protime With Inr (11/22/17 00:32) Partial Thromboplastin Time (11/22/17 00:32) Thyroid Analyzer (11/22/17 00:32) Ua Culture If Indicated (11/22/17 00:32) Chest 1 View, Ap/Pa Only (11/22/17 00:32) Salicylate (11/22/17 00:32) Saline Lock/Iv-Start (11/22/17 00:32) Ns Iv 1000 Ml (Sodium Chloride 0.9%) (11/22/17 00:32) Accucheck Stat ONCE (11/22/17 02:11) Accucheck Stat ONCE (11/22/17 03:09) Naloxone Injection (Narcan Injection) (11/22/17 03:22) Naloxone Injection (Narcan Injection) (11/22/17 03:34) Accucheck Stat ONCE (11/22/17 05:16) Medications Given in ED Current Medications Medications Dose Ordered Sig/Андрей Route Start Time Stop Time Status Last Admin Dose Admin Naloxone HCl 2 mg STK-MED ONCE .ROUTE 11/22/17 03:22 11/22/17 03:26 DC 11/22/17 03:32 2 MG Naloxone HCl 2 mg STK-MED ONCE .ROUTE 11/22/17 03:34 11/22/17 03:38 DC 11/22/17 03:35 2 MG Sodium Chloride 1,000 ml @ 0 mls/hr Q0M ONCE IV 11/22/17 00:32 11/22/17 00:35 DC 11/22/17 00:56 1,000 MLS/HR Vital Signs/I&O 11/22/17 11/22/17 00:26 06:15 Temp 97.1 98.0 Pulse 70 88 Resp 20 20 B/P (MAP) 130/73 (92) 132/85 Pulse Ox 95 100 O2 Delivery Room Air Room Air Capillary Refill : Progress Note : Progress Note PT IS ADAMANT THAT SHE DID NOT TAKE EXTRA INSULIN STATES SHE IS FINE AND WANTS TO GO HOME. WILL OBSERVE PT IN ER AND DO FREQUENT BLOOD GLUCOSE LEVELS. PT ABLE TO AMBULATE TO AND FROM BATHROOM ON HER OWN. REPEAT ACCUCHECKS 152, 140, 108, 94, 78 PT SLEPT DURING REMAINDER OF ER STAY, THEN ATTEMPTED TO DISMISS HER AND PT IS VERY SOMNOLENT---WILL WAKE TO VERBAL AND TACTILE STIMULI FOR A FEW SECONDS AND FALL BACK ASLEEP. ADDITIONAL DOSES OF NARCAN GIVEN WITH MARGINAL IMPROVEMENT. WILL KEEP PT IN ER AND OBSERVE FOR A FEW HOURS SON LATER STATES THAT PT TAKES HER OWN MEDICATIONS, AND NO ONE MONITORS HOW MUCH MEDICATION SHE IS TAKING OR IF SHE IS TAKING THEM PROPERLY. HE STATES TONIGHT, IT APPEARED THAT SHE HAD SPILLED A BUNCH OF PILLS IN AN ASHTRAY. HE HAS NO IDEA WHAT PILLS THEY WERE. STATES IT IS ALSO POSSIBLE SHE MIGHT HAVE TAKEN EXTRA SLEEPING PILL OR ANXIETY PILL, PT HAS STATED THAT SHE JUST WANTS TO SLEEP. GRAND DAUGHTER STATES THAT PT IS NORMALLY UP ALL NIGHT AND DOES NOT GO TO SLEEP UNTIL 0700 MOST DAYS. 0520--PT NOW MORE AWAKE, AND ABLE TO TALK AND WANTS TO GO HOME. REPEAT ACCUCHECK 78. GIVEN SNACK AND JUICE. PT IS VERY TALKATIVE AND ABLE TO AMBULATE TO BATHROOM. PT STATES SHE ALWAYS HAS PROBLEMS SLEEPING AND DOES NOT SLEEP MORE THAN 4 HOURS A DAY PT ALSO STATES THAT SHE KEEPS HER HYDROCODONE IN AN ASHTRAY AND ONLY TAKES THEM "WHEN SHE NEEDS THEM" PT DOES NOT RECALL WHEN/HOW MUCH MEDICATION SHE TOOK PT ADVISED TO GET A PILL ORGANIZER FOR HER MEDICATIONS, AND OTHERWISE KEEP PILLS IN THEIR DESIGNATED PRESCRIPTION BOTTLES AND NOT LAYING AROUND OUT IN THE OPEN AND UNLABELED. ADVISED THAT [facility] COULD ARRANGE FOR SOMEONE TO ASSIST HER WITH SETTING UP HER PILL ORGANIZER IF NEEDED. Diagnostic Imaging Comments CXR--NO ACUTE PROCESS, PENDING RADIOLOGIST REVIEW Reviewed: Reviewed by Me Departure Impression Primary Impression: TRANSIENT ALTERED MENTAL STATUS Additional Impressions: IDDM (insulin dependent diabetes mellitus) LIKELY EXCESSIVE OPIATE AND/OR BENZODIAZEPINE USE Disposition: 01 HOME, SELF-CARE Condition: Improved Departure-Patient Inst. Referrals: [facility] (PCP) Primary Care Physician LANIE BRIONES (Family) Primary Care Physician Patient Instructions: Diabetes Type 2 (DC), Narcotic Overdose (DC) Add. Discharge Instructions: TAKE YOUR MEDICATIONS PRESCRIBED LOTS OF CLEAR LIQUIDS FOLLOW UP WITH [facility] IN 1-2 DAYS FOR FURTHER CARE RETURN TO ER IF SYMPTOMS RETURN KENA HUFFMAN DO Nov 22, 2017 00:43
[2017-11-22 00:46] LABS: BASOPHILS % (AUTO) 1 % (0-10); EOSINOPHILS # (AUTO) 0.1 10^3/uL (0.0-0.3); EOSINOPHILS % (AUTO) 2 % (0-10); HEMATOCRIT 33 % (35-52); HEMOGLOBIN 11.3 G/DL (11.5-16.0); LYMPHOCYTES # (AUTO) 1.5 X 10^3 (1.0-4.0); LYMPHOCYTES % (AUTO) 40 % (12-44); MEAN CORPUSCULAR HEMOGLOBIN 34 PG (25-34); MEAN CORPUSCULAR HGB CONC 34 G/DL (32-36); MEAN CORPUSCULAR VOLUME 99 FL (80-99); MEAN PLATELET VOLUME 10.2 FL (7.4-10.4); MONOCYTES # (AUTO) 0.2 X 10^3 (0.0-1.0); MONOCYTES % (AUTO) 6 % (0-12); NEUTROPHILS # (AUTO) 1.9 X 10^3 (1.8-7.8); NEUTROPHILS % (AUTO) 51 % (42-75); PLATELET COUNT 143 10^3/uL (130-400); RED BLOOD COUNT 3.31 10^6/uL (4.35-5.85); RED CELL DISTRIBUTION WIDTH 13.9 % (10.0-14.5); WHITE BLOOD COUNT 3.7 10^3/uL (4.3-11.0)
[2017-11-22 00:55] LABS: INR 0.9 (0.8-1.4); PROTHROMBIN TIME PATIENT 12.6 SEC (12.2-14.7)
[2017-11-22 01:01] LABS: BILIRUBIN,URINE NEGATIVE (NEGATIVE); CLARITY,URINE CLEAR; GLUCOSE, URINE (UA) NEGATIVE (NEGATIVE); KETONES,URINE NEGATIVE (NEGATIVE); LEUKOCYTE ESTERASE ,URINE 1+ (NEGATIVE); NITRITE,URINE NEGATIVE (NEGATIVE); PH,URINE 5 (5-9); PROTEIN,URINE NEGATIVE (NEGATIVE); UROBILINOGEN,URINE NORMAL (NORMAL)
[2017-11-22 01:03] LABS: ALANINE AMINOTRANSFERASE 15 U/L (0-55); ALBUMIN 3.5 GM/DL (3.2-4.5); ALKALINE PHOSPHATASE 80 U/L (40-136); BILIRUBIN,TOTAL 0.3 MG/DL (0.1-1.0); BUN/CREATININE RATIO 25; CALCIUM 9.2 MG/DL (8.5-10.1); CARBON DIOXIDE 25 MMOL/L (21-32); CHLORIDE 105 MMOL/L (98-107); GFR ESTIMATED 54; GLUCOSE 185 MG/DL (70-105); LIPASE 47 U/L (8-78); MAGNESIUM 2.3 MG/DL (1.8-2.4); POTASSIUM 3.8 MMOL/L (3.6-5.0); SALICYLATE < 5.0 MG/DL (5.0-20.0); SODIUM 141 MMOL/L (135-145); TOTAL PROTEIN 6.2 GM/DL (6.4-8.2)
[2017-11-22 01:10] LABS: BACTERIA,URINE NEGATIVE /HPF; COLOR,URINE Y; HYALINE CASTS, URINE RARE /LPF; SQUAMOUS EPITHELIAL CELL,UR 0-2 /HPF; WBC,URINE RARE /HPF
[2017-11-22 01:12] LABS: ACETAMINOPHEN < 10 UG/ML (10-30)
[2017-11-22 01:22] LABS: TSH (THYROID ANALYZER) 0.47 UIU/ML (0.35-4.94)
[2017-11-22 01:22] LABS: AMPHETAMINE SCREEN, URINE NEGATIVE (NEGATIVE); BENZODIAZEPINES SCREEN URINE POSITIVE (NEGATIVE); CANNABINOID SCREEN, URINE NEGATIVE (NEGATIVE); COCAINE SCREEN URINE NEGATIVE (NEGATIVE); METHAMPHETAMINE SCREEN URINE S NEGATIVE (NEGATIVE)
[2017-11-22 01:23] LABS: BARBITURATE SCREEN URINE NEGATIVE (NEGATIVE); METHADONE STAT NEGATIVE (NEGATIVE); OPIATE SCREEN URINE POSITIVE (NEGATIVE); OXYCODONE STAT NEGATIVE (NEGATIVE); PROPOXYPHENE STAT NEGATIVE (NEGATIVE); TRICYCLIC ANTIDEPRESSANTS SCRE NEGATIVE (NEGATIVE)
[2017-11-22] MEDS ORDERED: PREG50CA2 PO (02:20)
[2017-11-22] MEDS ORDERED: LORA0.5T PO (02:20)
[2017-11-22] MEDS ORDERED: HYDR-3812 (02:20)
[2017-11-22] MEDS ORDERED: NALOXONE 2 MG/2 ML (NARCAN) SYR ONE ×2 (03:22→03:34)
[2017-11-22 06:15] VITALS: BP 132/85
--- NOTE | 2017-11-22 06:55 | Diagnostic Imaging Report ---
INDICATION: Altered mental status. COMPARISON: 12/06/2014 FINDINGS: Single frontal view of the chest is obtained. Heart size is normal. The pulmonary vessels appear unremarkable. There is no pneumothorax, mediastinal widening or pleural fluid. There is some subtle increased density in the medial right lung base adjacent to the heart possibly some infiltrate. Calcified mitral annulus is again noted. IMPRESSION: Suspect subtle right medial base or infiltrate. No additional abnormality is seen. Dictated by: Dictated on workstation # [id number]
[2018-01-08] MEDS ORDERED: METF500T8 PO (09:12)
[2018-01-08] MEDS ORDERED: PRAV20TA3 PO (09:12)
[2018-01-08] MEDS ORDERED: INSU100V16 SQ (09:12)
[2018-01-08] MEDS ORDERED: INSU100I29 SQ (09:12)
[2018-01-08] MEDS ORDERED: OMEG1CAP58 PO (09:22)
== END 2017-11-22 06:15 | disposition home or self-care (01) ==
LOC: EDUNIT# 00:26 → ER 00:28
DX: R41.82 Altered mental status, unspecified (principal); E11.9 Type 2 diabetes mellitus without complications; I10 Essential (primary) hypertension; B19.20 Unspecified viral hepatitis C without hepatic coma; F41.9 Anxiety disorder, unspecified; Z87.19 Personal history of other diseases of the digestive system; Z82.49 Family history of ischemic heart disease and other diseases of the circulatory system; Z87.440 Personal history of urinary (tract) infections; Z86.73 Personal history of transient ischemic attack (TIA), and cerebral infarction without residual deficits; Z88.6 Allergy status to analgesic agent; Z88.8 Allergy status to other drugs, medicaments and biological substances; Z79.4 Long term (current) use of insulin; Z98.1 Arthrodesis status; Z86.010 Personal history of colon polyps; Z87.59 Personal history of other complications of pregnancy, childbirth and the puerperium; Z91.14 Patient's other noncompliance with medication regimen
CPT/HCPCS: 36415; 71045; 80053; 80306; 80320; 80329; 81000; 82962; 83690; 83735; 84443; 85025; 85610; 85730; 93041; 96361; 96374

== ENCOUNTER 2018-01-07 06:06 | Outpatient (CLI) | payer MEDICARE ==
[~2018-01-07] VITALS: Ht 152.4 cm; Wt 72.6 kg
[~2018-01-07 06:06] MED LIST changes: +HYDR-3812; +PREG50CA2 PO
[2018-01-08] MEDS ORDERED: METF500T8 PO (09:12)
[2018-01-08] MEDS ORDERED: INSU100V16 SQ (09:12)
[2018-01-08] MEDS ORDERED: PRAV20TA3 PO (09:12)
[2018-01-08] MEDS ORDERED: INSU100I29 SQ (09:12)
[2018-01-08] MEDS ORDERED: OMEG1CAP58 PO (09:22)
[2018-01-14] MEDS ORDERED: PANT40TA2 PO (14:01)
== END 2018-01-07 16:00 ==
LOC: PREOP 06:06
PROVIDERS: ATTEND Surgery
DX: Z01.818 Encounter for other preprocedural examination (principal); Z12.11 Encounter for screening for malignant neoplasm of colon

== ENCOUNTER 2018-01-14 12:05 | Day surgery (SDC) | payer MEDICARE ==
[~2018-01-14] VITALS: Ht 152.4 cm; Wt 72.6 kg
[~2018-01-14 12:05] MED LIST changes: +INSU100I29 SQ; +INSU100V16 SQ; +METF500T8 PO; +OMEG1CAP58 PO; +PRAV20TA3 PO
--- OUTSIDE RECORDS SUMMARY | 2018-01-14 12:09 | XMS REPORT | Clinical Summary ---
Author Author [facility] Organization [facility] Address Unknown Phone Unavailable Care Team Providers Care Correspondence Analyst Name Role Phone Adolfo Ryan MD Unavailable Yvan Canas MD Unavailable Source Comments Some departments are not documenting in the electronic medical record. If you do not see the information that you expected, contact Release of Information in the Health Information Management department at [phone] for further assistance in locating additional records.[facility] Allergies Active Allergy Reactions Severity Noted [...] FOOT EXAM 1960 HBA1C 1960 MICROALBUMIN 1960 COLORECTAL CANCER 1992 SCREENING SHINGLES VACCINE 2002 OSTEOPOROSIS SCREENING 2007 PNEUMONIA (PCV13/PPSV23) 2007 VACCINES (1 of 2 - PCV13) INFLUENZA VACCINE 05/12/2018 Results Not on filefrom Last 3 Months
--- OUTSIDE RECORDS SUMMARY | 2018-01-14 12:09 | XMS REPORT | Clinical Summary ---
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 KEY HOLDER Pulse - - Temperature - - Respiratory Rate - - Oxygen Saturation - - Inhaled Oxygen - - Concentration Weight 76.7 kg (169 lb) 06/28/2014 1:38 PM SALES ASSOCIATE KEY HOLDER Height 152.4 cm (5') 10/29/2013 1:20 PM CDT Body Mass Index 33.01 06/28/2014 1:38 PM SALES ASSOCIATE KEY HOLDER Plan of Treatment Health Maintenance Due Date Last Done Comments DTaP,Tdap,and Td Vaccines 1961 (1 - Tdap) Colon Cancer Screening 1992 Zoster Recombinant 1992 Vaccine (RZV,Shingrix) (1 of 2 - [facility] 2 Dose Standard) Pneumo-Adult (1 of 2 - 2007 PCV13) Influenza Vaccine (Season 04/12/2018 Ended) Results Not on filefrom Last 3 Months
--- OUTSIDE RECORDS SUMMARY | 2018-01-14 12:10 | XMS REPORT ---
Author Author LANIE BRIONES [facility] Address [address] [place] [address] Care Team Providers Care Table Saw Operator Name Role Phone LANIE BRIONES Unavailable PROBLEMS Type Condition ICD9-CM Code IWL18-AR Code Onset Dates Condition Status SNOMED Code Diagnosis Mixed hyperlipidemia E78.2 Active 627450498 Problem Generalized psoriasis L40.1 Active 317155654 Diagnosis Arthritis M19.90 Active 7082436 Problem Major depressive disorder, single episode, unspecified F32.9 Active 33295250 Problem Type 2 diabetes mellitus with unspecified complications E11.8 Active 221294324 Problem Neuropathy G62.9 Active 394708692 Problem Dyspepsia R10.13 Active 666925186 Problem Weight loss, unintentional R63.4 Active 994531650 Problem Type 2 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 Active 02281336 Condition Depressive disorder, not elsewhere classified 311 Active 10057087 Diagnosis Anxiety F41.9 Active 86813496 Diagnosis Gastro-esophageal reflux disease with esophagitis K21.0 Active 348508812 Diagnosis Chronic pain syndrome G89.4 Active 01897678 Problem nursing home 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.4 Active 374554722 Problem Insomnia, unspecified G47.00 Active 560226983 Problem 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 M79.7 Active 53512910 Diagnosis Essential (primary) hypertension I10 Active 33845266 ALLERGIES No Information ENCOUNTERS Encounter Location Date Diagnosis [facility] [address] [address] Nov, [facility] [id number] [place] [address] 56539- 1326 Nov, [facility] [id number] [place] [address] 10838- 8016 Nov, Chronic pain syndrome G89.4 [facility] [id number] [place] [address] 61361- 5454 Oct, Chronic pain syndrome G89.4 and Anxiety F41.9 [facility] [id number] [place] [address] 66302- 2736 Oct, Major depressive disorder, single episode, unspecified F32.9 [facility] [id number] [place] [address] 44938- 1366 Oct, Chronic pain syndrome G89.4 and Anxiety F41.9 [facility] [id number] [place] [address] 13720- 1114 Oct, [facility] [id number] [place] [address] 75215- 3494 Sep, Major depressive disorder, single episode, unspecified F32.9 and Chronic pain syndrome G89.4 [facility] [id number] [place] [address] 59038- 4056 Sep, [facility] [id number] [place] [address] 26323- 6292 Aug, Chronic pain syndrome G89.4 and Anxiety F41.9 [facility] [id number] [place] [address] 56640- 2470 Aug, Chronic pain syndrome G89.4 and Anxiety F41.9 [facility] [id number] [place] [address] 23635- 7025 Aug, [facility] [id number] [place] [address] 04463- 2655 Aug, Anxiety F41.9 and Chronic pain syndrome G89.4 [facility] [id number] [place] [address] 08837- 0826 Aug, [facility] [id number] [place] [address] 15301- 4421 Aug, Anxiety F41.9 ; Chronic pain syndrome G89.4 and Insomnia, unspecified G47.00 [facility] [id number] [place] [address] 35023- 9503 Jul, Chronic pain syndrome G89.4 ; Insomnia, unspecified G47.00 ; Type 2 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 ; nursing home 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.4 ; Anxiety F41.9 and Essential (primary) hypertension I10 [facility] [id number] [place] [address] 24824- 2979 Jul, [facility] [address] 72070- 3894 Jul, [facility] [address] 48362- 4080 Jul, [facility] [address] 18010- 5418 Jul, Encounter for immunization Z23 [facility] [address] 81980- 4726 Jun, [facility] [address] 60505- 0174 Jun, [facility] [address] 07540- 5319 May, [facility] [id number] [place] [address] 39132- 9020 May, [facility] [id number] [place] [address] 45314- 0604 May, [facility] [id number] [place] [address] 42956- 7891 Apr, Chronic pain syndrome G89.4 ; Anxiety F41.9 and Dyspepsia R10.13 [facility] [id number] [place] [address] 09306- 9658 Apr, [facility] [id number] [place] [address] 18672- 6666 Mar, Chronic pain syndrome G89.4 and Anxiety F41.9 [facility] [id number] [place] [address] 79535- 0409 Mar, Chronic pain syndrome G89.4 [facility] [id number] [place] [address] 94984- 0461 Feb, Chronic pain syndrome G89.4 and Anxiety F41.9 [facility] [id number] [place] [address] 70095- 5934 Feb, [facility] [id number] [place] [address] 52381- 4605 Feb, Systolic murmur R01.1 [facility] [id number] [place] [address] 73581- 2885 Feb, [facility] [id number] [place] [address] 18973- 1640 Feb, [facility] [id number] [place] [address] 02604- 5841 Feb, Chronic pain syndrome G89.4 [facility] [id number] [place] [address] 41959- 9627 Jan, [facility] [id number] [place] [address] 30869- 4266 Jan, Heart murmur on physical examination R01.1 ; Anxiety F41.9 and Chronic pain syndrome G89.4 [facility] [id number] [place] [address] 36605- 5490 Jan, Anxiety F41.9 and Chronic pain syndrome G89.4 [facility] [address] [place] [address] 03122- 2440 Jan, [facility] [id number] [place] [address] 37618- 6512 Jan, Other malaise R53.81 [facility] [id number] [place] [address] 59768- 6270 Jan, [facility] [address] [place] [address] 79918- 1560 Jan, [facility] [id number] [place] [address] 56768- 9546 Jan, Chronic pain syndrome G89.4 [facility] [id number] [place] [address] 98741- 4722 December, Other malaise R53.81 [facility] [id number] [place] [address] 20528- 1325 December, Type 2 diabetes mellitus with unspecified complications E11.8 [facility] [id number] [place] [address] 77056- 7397 December, Anxiety F41.9 and Chronic pain syndrome G89.4 [facility] [id number] [place] [address] 02369- 9641 December, Type 2 diabetes mellitus with unspecified complications E11.8 ; Anxiety F41.9 ; 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 and Chronic pain syndrome G89.4 [facility] [id number] [place] [address] 59052- 7646 Nov, [facility] [id number] [place] [address] 62428- 1032 Nov, [facility] [id number] [place] [address] 90318- 2303 Nov, Anxiety F41.9 and Chronic pain syndrome G89.4 [facility] [address] [place] [address] 66204 -0290 Nov, Type 2 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 and Acute non-recurrent pansinusitis J01.40 [facility] [id number] [place] [address] 75266- 4045 Nov, Type 2 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 [facility] [id number] [place] [address] 04613- 2306 Nov, [facility] [address] [place] [address] 77914- 2636 Oct, Chronic pain syndrome G89.4 [facility] [id number] [place] [address] 16811- 7702 Oct, Chronic pain syndrome G89.4 and Anxiety F41.9 [facility] [id number] [place] [address] 36292- 5115 Oct, Chronic pain syndrome G89.4 [facility] [id number] [place] [address] 20856- 0909 Sep, Anxiety F41.9 and Chronic pain syndrome G89.4 [facility] [id number] [place] [address] 58390- 7102 Aug, Chronic pain syndrome G89.4 ; Essential (primary) hypertension I10 ; Dyspepsia R10.13 ; Neuropathy G62.9 ; Mixed hyperlipidemia E78.2 ; Anxiety F41.9 ; Insomnia, unspecified G47.00 and Weight loss, unintentional R63.4 [facility] [id number] [place] [address] 84505- 2130 Aug, Chronic pain syndrome G89.4 [facility] [address] [place] [address] 56968- 2990 Aug, Type 2 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 ; Chronic pain syndrome G89.4 ; nursing home 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.4 and Wound, open, forearm, right, initial encounter S51.801A [facility] [facility] [address] [place] [address] 04543- 2980 Jul, [facility] [id number] [place] [address] 95785- 1405 Jun, [facility] [id number] [place] [address] 09814- 5910 Jun, [facility] [id number] [place] [address] 28558- 8187 Jun, Chronic pain syndrome G89.4 ; Type 2 diabetes mellitus with unspecified complications E11.8 ; 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 ; Essential (primary) hypertension I10 ; Dyspepsia R10.13 ; Neuropathy G62.9 ; Mixed hyperlipidemia E78.2 ; Anxiety F41.9 ; Insomnia, unspecified G47.00 and Alteration in mobility due to weakness R53.1 [facility] [id number] [place] [address] 61446- 2900 May, [facility] [id number] [place] [address] 99626- 9695 May, [facility] [id number] [place] [address] 22920- 7600 May, [facility] [id number] [place] [address] 68289- 4222 May, [facility] [id number] [place] [address] 37519- 8245 Apr, [facility] [id number] [place] [address] 66172- 4000 Apr, [facility] [id number] [place] [address] 78654- 3155 Apr, [facility] [address] [address]- 4442 Mar, [facility] [id number] [place] [address] 07705- 7473 Mar, Chronic pain syndrome G89.4 ; Type 2 diabetes mellitus with unspecified complications E11.8 ; 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 ; Essential (primary) hypertension I10 ; Dyspepsia R10.13 ; Neuropathy G62.9 ; Mixed hyperlipidemia E78.2 ; Anxiety F41.9 and Insomnia, unspecified G47.00 [facility] [address] [address]- 2254 Mar, [facility] [id number] [place] [address] 29564- 9163 Mar, [facility] [id number] [place] [address] 51840- 7143 Feb, [facility] [id number] [place] [address] 53182- 6697 Feb, Chronic pain syndrome G89.4 ; Type 2 diabetes mellitus with unspecified complications E11.8 ; 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 ; Essential (primary) hypertension I10 ; Dyspepsia R10.13 ; Neuropathy G62.9 ; Mixed hyperlipidemia E78.2 ; Anxiety F41.9 and Insomnia, unspecified G47.00 [facility] [place] [id number] [place] [address] 30669- 1230 Jan, [facility] [id number] [place] [address] 27345- 7492 Jan, Chronic pain syndrome G89.4 ; Type 2 diabetes mellitus with unspecified complications E11.8 ; nursing home 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.4 ; Essential (primary) hypertension I10 ; Dyspepsia R10.13 ; Neuropathy G62.9 ; Mixed hyperlipidemia E78.2 ; Anxiety F41.9 and Insomnia, unspecified G47.00 [facility] [id number] [place] [address] 25417- 6742 Jan, [facility] [id number] [place] [address] 43225- 9905 Jan, [facility] [id number] [place] [address] 67249- 9751 December, Chronic pain syndrome G89.4 ; Type 2 diabetes mellitus with unspecified complications E11.8 ; 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 ; Essential (primary) hypertension I10 ; Dyspepsia R10.13 ; Neuropathy G62.9 ; Mixed hyperlipidemia E78.2 ; Anxiety F41.9 and Insomnia, unspecified G47.00 [place] [id number] [place] [address] 61061- 2594 December, [facility] [address], [place] [address]- 7029 Nov, [facility] [address] [address]- 0003 Nov, [facility] [address], [place] [address]- 6639 Oct, Chronic pain syndrome G89.4 and Skin infection L08.9 [facility] [address], [place] [address]- 0091 Oct, [facility] [address] [place] [address] 38012- 3111 Oct, [facility] [address] [place] [address] 93638- 6704 Oct, [facility] [id number] [place] [address] 25122- 0563 Oct, [facility] [address] [address]- 4307 Oct, [facility] [address], [place] [address]- 1079 Oct, [facility] [address], [place] [address]- 0729 Oct, Chronic pain syndrome G89.4 ; Type 2 diabetes mellitus with unspecified complications E11.8 ; 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 ; Essential (primary) hypertension I10 ; Dyspepsia R10.13 ; Neuropathy G62.9 and Mixed hyperlipidemia E78.2 [facility] [address], [place] [address]- 9092 Oct, [facility] [address], [place] [address]- 2653 Sep, [facility] [address], [place] [address]- 3120 Sep, [facility] [address] [address]- 1859 Sep, Chronic pain syndrome G89.4 [facility] [id number] [place] [address] 24544- 4194 Aug, [facility] [id number] [place] [address] 03488- 7833 Aug, Chronic pain syndrome G89.4 ; Type 2 diabetes mellitus with unspecified complications E11.8 ; 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 ; Essential (primary) hypertension I10 and Dyspepsia R10.13 [facility] [place] [id number] [place] [address] 30864- 5475 15 Aug, 2015 Rash R21 [facility] [id number] [place] [address] 67739- 0303 Aug, [facility] [id number] [place] [address] 18485- 3649 Aug, [facility] [id number] [place] [address] 24768- 1517 Aug, [facility] [id number] [place] [address] 17154- 0250 Aug, Insomnia, unspecified G47.00 ; Chronic pain syndrome G89.4 and Anxiety F41.9 [facility] [id number] [place] [address] 07290- 9920 Aug, Depression, major, recurrent, in partial remission F33.41 and Anxiety disorder, unspecified F41.9 [facility] [address] [place] [address] 55036- 3468 Jul, [facility] [id number] [place] [address] 52883- 4622 Jul, Chronic pain syndrome G89.4 ; Type 2 diabetes mellitus with unspecified complications E11.8 ; Gastro-esophageal reflux disease with esophagitis K21.0 ; nursing home 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.4 ; Mixed hyperlipidemia E78.2 ; Essential (primary) hypertension I10 ; Otalgia of both ears H92.03 and Alopecia L65.9 [place] [address] 38878- 2613 Jul, [facility] [address] 90337- 7498 Jul, [facility] [place] [address] 10180- 4495 Jul, Anxiety F41.9 and Depressive disorder, not elsewhere classified 311 [facility] [address] 91581- 5855 Jul, [facility] [address] 31626- 7356 Jul, Insomnia, unspecified G47.00 ; Anxiety disorder, unspecified F41.9 and Major depressive disorder, single episode, unspecified F32.9 [facility] [address] 90133- 6380 Jun, [facility] [address] 33809- 3229 Jun, Insomnia, unspecified G47.00 ; Generalized psoriasis L40.1 and Chronic pain syndrome G89.4 [facility] [id number] [place] [address] 82765- 2208 Jun, [facility] [address] 18745- 2212 Jun, [facility] [id number] [place] [address] 66243- 2517 Jun, Depressive disorder, not elsewhere classified 311 and Anxiety F41.9 [place] [address] 95203- 5981 Jun, Generalized psoriasis L40.1 [facility] [id number] [place] [address] 05890 -0409 Jun, Dermatitis L30.9 [place] [id number] [place] [address] 01863- 8796 May, Insomnia, unspecified G47.00 ; Chronic pain syndrome G89.4 and GERD (gastroesophageal reflux disease) K21.9 [place] [id number] [place] [address] 90822- 9940 May, Insomnia, unspecified G47.00 ; Anxiety disorder, unspecified F41.9 and Major depressive disorder, single episode, unspecified F32.9 [place] [id number] [place] [address] 46517- 5033 May, Depressive disorder, not elsewhere classified 311 and Anxiety F41.[address] 12402- 3459 May, [address] 84749- 3205 May, Insomnia, unspecified G47.00 and Encounter for immunization Z23 [place] [id number] [place] [address] 69037- 1304 May, [address] 55685- 3699 May, Chronic pain syndrome G89.4 ; Mixed hyperlipidemia E78.2 ; Type 2 diabetes mellitus with unspecified complications E11.8 ; Essential ( primary) hypertension I10 ; Anxiety F41.9 ; Insomnia, unspecified G47.00 ; 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 M79.7 and nursing home 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.4 [place] [id number] [place] [address] 61851- 6679 Apr, [address] 21969- 9885 Apr, Dyspepsia 536.8 and Insomnia 780.[address] 26863- 3565 Apr, Other malaise and fatigue 780.[address] [id number] [address]- 5535 Apr, [facility] [id number] [place] [address] 20690- 0716 Mar, Diabetes with neurological manifestations, type II or unspecified type, not stated as uncontrolled 250.60 ; Other chronic pain 338.29 ; Essential hypertension, benign 401.1 ; Anxiety state, unspecified 300.00 ; Insomnia 780.52 and Hyperlipidemia 272.4 [facility] [id number] [place] [address] 94738- 8010 Mar, [facility] [id number] [place] [address] 94927- 8376 Feb, [facility] [id number] [place] [address] 54245- 4281 Feb, [facility] [id number] [place] [address] 62165- 1203 Feb, [facility] [id number] [place] [address] 31054- 9460 Feb, [facility] [id number] [place] [address] 71410- 5352 Feb, [facility] [address] [place] [address] 81082- 5245 Jan, Depressive disorder, not elsewhere classified 311 and Dyssomnia 780.56 [facility] [id number] [place] [address] 13370- 5339 Jan, Diabetes with neurological manifestations, type II or unspecified type, not stated as uncontrolled 250.60 ; Other chronic pain 338.29 ; Essential hypertension, benign 401.1 ; Anxiety state, unspecified 300.00 ; Insomnia 780.52 and Hyperlipidemia 272.4 [facility] [address] [address]- 7793 Jan, [facility] [address] [place] [address] 22054- 5557 Jan, [facility] [address], [place] [address]- 6958 Jan, [facility] [address] [address]- 9764 Jan, [facility] [address], [place] [address]- 9449 Jan, [facility] [address], [place] [address]- 7506 Jan, [facility] [address], [place] [address]- 3382 December, [facility] [address] [place] [address] 44232- 9933 December, [facility] [id number] [address]- 8715 December, [facility] [address] [address]- 2757 December, [facility] [address], [place] [address]- 5409 December, Anxiety state, unspecified 300.00 ; Other chronic pain 338.29 ; Diabetes with neurological manifestations, type II or unspecified type , not stated as uncontrolled 250.60 ; Essential hypertension, benign 401.1 ; Compression fracture of thoracic spine, non-traumatic 733.13 ; Wrist fracture, left 814.00 and Fall at home E888.9 [facility] [address] [address]- 0320 December, [facility] [id number] 2330 December, [facility] [address] [address]- 1217 Nov, [facility] [id number] [address]- 8798 Nov, [facility] [id number] [place] [address]- 7564 14 Nov, 2014 [facility] [place] [facility] [address] [id number] [place] [address]- 1886 13 Nov, 2014 [facility] [place] [facility] [address] [id number] [place] [address]- 6967 Oct, [facility] [place] [facility] [address] [id number] [place] [address]- 7969 Oct, [facility] [place] [facility] [address] [id number] [place] [address]- 0514 Oct, [facility] [place] [facility] [address] [id number] [place] [address]- 9849 Oct, [facility] [place] [facility] [address] [id number] [place] [address] Oct, [facility] [place] [facility] [address] [id number] [place] [address] Oct, [facility] [place] [facility] [address] [id number] [place] [address] Oct, [facility] [place] [facility] [address] [id number] [place] [address] Oct, [facility] [place] [facility] [address] [facility] [id number] [place] [address] Sep, [facility] [place] [facility] [address] [id number] [place] [address] Sep, [facility] [place] [facility] [address] [id number] [place] [address] Sep, [facility] [place] [facility] [address] [id number] [place] [address] Sep, [facility] [place] [facility] [address] [id number] [place] [address] Aug, [facility] [place] [facility] [address] [id number] [place] [address] Aug, [facility] [address] [facility] [id number] [id number] Aug, [facility] [address] [facility] [id number] [address] Aug, [facility] [address] [facility] [id number], [place] [address] Aug, [facility] [address] [facility] [id number], [place] [address] Aug, [facility] [address] [facility] [id number][place] [address] Aug, [facility] [address] [facility] [id number] [address] Aug, IMMUNIZATIONS No Known Immunizations SOCIAL HISTORY Never Assessed REASON FOR VISIT PALS PLAN OF CARE VITAL SIGNS MEDICATIONS Medication Instructions Dosage Frequency Start Date End Date Duration Status Lyrica 50 mg Orally Twice a day 1 capsule 12h 90 days Active RESULTS No Results PROCEDURES No Known procedures INSTRUCTIONS MEDICATIONS ADMINISTERED No Known Medications MEDICAL (GENERAL) HISTORY Type Description Date Medical [...] mellitus with unspecified complications Medical History Alopecia Medical History 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
--- OUTSIDE RECORDS SUMMARY | 2018-01-14 12:11 | XMS REPORT ---
Author Author LANIE BRIONES [facility] [address] Address [address] [place] [address] Care Team Providers Care Systems Test Technician Name Role Phone LANIE BRIONES Unavailable PROBLEMS Type Condition ICD9-CM Code JOU55-OB Code Onset Dates Condition Status SNOMED Code Diagnosis Mixed hyperlipidemia E78.2 Active 182527920 Problem Generalized psoriasis L40.1 Active 347036953 Diagnosis Arthritis M19.90 Active 5023534 Problem Major depressive disorder, single episode, unspecified F32.9 Active 29203493 Problem Type 2 diabetes mellitus with unspecified complications E11.8 Active 348896628 Problem Neuropathy G62.9 Active 902001928 Problem Dyspepsia R10.13 Active 685560459 Problem Weight loss, unintentional R63.4 Active 308806903 Problem Type 2 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 Active 12484447 Condition Depressive disorder, not elsewhere classified 311 Active 60776764 Diagnosis Anxiety F41.9 Active 09946177 Diagnosis Gastro-esophageal reflux disease with esophagitis K21.0 Active 078599099 Diagnosis Chronic pain syndrome G89.4 Active 11059277 Problem retirement 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.4 Active 444525627 Problem Insomnia, unspecified G47.00 Active 149039684 Problem 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 M79.7 Active 17594159 Diagnosis Essential (primary) hypertension I10 Active 42881447 ALLERGIES No Information ENCOUNTERS Encounter Location Date Diagnosis [facility] [address], [place] [address] Nov, [facility] [id number] [place] [address] 69247- 7112 Nov, [facility] [address], [place] [address] Oct, Major depressive disorder, single episode, unspecified F32.9 [facility] [id number] [place] [address] 36165- 3869 Oct, Chronic pain syndrome G89.4 and Anxiety F41.9 [facility] [id number] [place] [address] 89238- 5456 Oct, [facility] [id number] [place] [address] 87308- 5909 Sep, Major depressive disorder, single episode, unspecified F32.9 and Chronic pain syndrome G89.4 [facility] [id number] [place] [address] 05603- 5586 Sep, [facility] [id number] [place] [address] 67343- 6308 Aug, Chronic pain syndrome G89.4 and Anxiety F41.9 [facility] [id number] [place] [address] 62356- 6121 Aug, Chronic pain syndrome G89.4 and Anxiety F41.9 [facility] [id number] [place] [address] 91764- 2604 Aug, [facility] [id number] [place] [address] 32924- 3324 Aug, Anxiety F41.9 and Chronic pain syndrome G89.4 [facility] [id number] [place] [address] 12565- 9536 Aug, [facility] [id number] [place] [address] 23603- 1760 Aug, Anxiety F41.9 ; Chronic pain syndrome G89.4 and Insomnia, unspecified G47.00 [facility] [id number] [place] [address] 16705- 6942 Jul, Chronic pain syndrome G89.4 ; Insomnia, unspecified G47.00 ; Type 2 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 ; 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 ; Anxiety F41.9 and Essential (primary) hypertension I10 [facility] [address] [address] 65[address] Jul, [facility] [address], [place] [address] 3424 Jul, [facility] [address], [place] [address] 8162 Jul, [facility] [id number] [place] [address] 807897- 5347 Jul, Encounter for immunization Z23 [facility] [id number] [place] [address] 03409- 3331 Jun, [facility] [id number] [place] [address] 76186- 6217 Jun, [facility] [id number] [place] [address] 53357- 7393 May, [facility] [id number] [place] [address] 48088- 3184 May, [facility] [address], [place] [address]- 5955 May, [facility] [address], [place] [address]- 8207 Apr, Chronic pain syndrome G89.4 ; Anxiety F41.9 and Dyspepsia R10.13 [facility] [address], [place] [address] 6997 Apr, [facility] [address], [place] [address] 8748 Mar, Chronic pain syndrome G89.4 and Anxiety F41.9 [facility] [address], [place] [address]- 7206 Mar, Chronic pain syndrome G89.4 [facility] [address], [place] [address] 9719 Feb, Chronic pain syndrome G89.4 and Anxiety F41.9 [facility] [address] [facility] [id number] [address] 9239 Feb, [facility] [address] [facility] [id number] [place] [address] 28996- 6658 Feb, Systolic murmur R01.1 [facility] [address] [facility] [id number] [address]- 5786 Feb, [facility] [address] [facility] [id number] [place] [address] 24307- 3377 Feb, [facility] [address] [facility] [id number] [place] [address] 82067- 3159 Feb, Chronic pain syndrome G89.4 [facility] [id number] [place] [address] 57148- 4067 Jan, [facility] [address] [place] [address] 21721- 2855 Jan, Heart murmur on physical examination R01.1 ; Anxiety F41.9 and Chronic pain syndrome G89.4 [facility] [address] [facility] [id number] [place] [address] 69796- 1183 Jan, Anxiety F41.9 and Chronic pain syndrome G89.4 [facility] [id number] [place] [address] 86133- 0660 Jan, [facility] [id number] [place] [address] 17512- 2469 Jan, Other malaise R53.81 [facility] [address] [facility] [id number], [place] [address]- 1271 Jan, [facility] [id number] [place] [address] 35290- 9551 Jan, [facility] [id number], [place] [address]- 7363 Jan, Chronic pain syndrome G89.4 [facility] [id number] [place] [address] 68054- 5973 December, Other malaise R53.81 [facility] [address] 80757- 0465 December, Type 2 diabetes mellitus with unspecified complications E11.8 [facility] [id number] [place] [address] 44530- 8172 December, Anxiety F41.9 and Chronic pain syndrome G89.4 [facility] [address] 26812- 8392 December, Type 2 diabetes mellitus with unspecified complications E11.8 ; Anxiety F41.9 ; 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 and Chronic pain syndrome G89.4 [facility] [id number] [place] [address] 18620- 6459 Nov, [facility] [address] 20247- 3763 Nov, [facility] [address] 03566- 8013 Nov, Anxiety F41.9 and Chronic pain syndrome G89.4 [facility] [id number] [place] [address] 57997 -2688 Nov, Type 2 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 and Acute non-recurrent pansinusitis J01.40 [facility] [id number] [place] [address] 66215- 6353 Nov, Type 2 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 [facility] [id number] [place] [address] 11617- 3556 Nov, [facility] [address] 60188- 8869 Oct, Chronic pain syndrome G89.4 [facility] [id number] [place] [address] 84973- 9165 Oct, Chronic pain syndrome G89.4 and Anxiety F41.9 [facility] [id number] [place] [address] 39262- 1484 Oct, Chronic pain syndrome G89.4 [facility] [id number] [place] [address] 26796- 8991 Sep, Anxiety F41.9 and Chronic pain syndrome G89.4 [place] [facility] [address] 44630- 1725 Aug, Chronic pain syndrome G89.4 ; Essential (primary) hypertension I10 ; Dyspepsia R10.13 ; Neuropathy G62.9 ; Mixed hyperlipidemia E78.2 ; Anxiety F41.9 ; Insomnia, unspecified G47.00 and Weight loss, unintentional R63.4 [facility] [id number] [place] [address] 33551- 2914 Aug, Chronic pain syndrome G89.4 [facility] [id number] [place] [address] 11244- 3294 Aug, Type 2 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 ; Chronic pain syndrome G89.4 ; retirement 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.4 and Wound, open, forearm, right, initial encounter S51.801A [facility] [id number] [place] [address] 90982- 5728 Jul, [facility] [id number] [place] [address] 34452- 5229 Jun, [facility] [id number] [place] [address] 61083- 5218 Jun, [place] [facility] [address] 75938- 1895 Jun, Chronic pain syndrome G89.4 ; Type 2 diabetes mellitus with unspecified complications E11.8 ; retirement 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.4 ; Essential (primary) hypertension I10 ; Dyspepsia R10.13 ; Neuropathy G62.9 ; Mixed hyperlipidemia E78.2 ; Anxiety F41.9 ; Insomnia, unspecified G47.00 and Alteration in mobility due to weakness R53.1 [facility] [id number], [place] [address]- 5310 May, [facility] [id number] [place] [address] 87378- 4161 May, [facility] [id number] [place] [address] 41665- 3014 May, [facility] [id number] [place] [address] 41913- 2287 May, [facility] [id number] [place] [address] 68295- 0036 Apr, [facility] [id number] [place] [address] 12670- 1444 Apr, [facility] [id number] [place] [address] 69907- 1539 Apr, [facility] [id number] [place] [address] 02315- 3877 Mar, [facility] [id number] [place] [address] 90694- 5565 Mar, Chronic pain syndrome G89.4 ; Type 2 diabetes mellitus with unspecified complications E11.8 ; retirement 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.4 ; Essential (primary) hypertension I10 ; Dyspepsia R10.13 ; Neuropathy G62.9 ; Mixed hyperlipidemia E78.2 ; Anxiety F41.9 and Insomnia, unspecified G47.00 [facility] [id number] [place] [address] 98954- 2074 Mar, [facility] [id number] [place] [address] 04736- 3012 Mar, [facility] [id number] [place] [address] 90594- 7457 Feb, [facility] [id number] [place] [address] 31270- 2513 Feb, Chronic pain syndrome G89.4 ; Type 2 diabetes mellitus with unspecified complications E11.8 ; 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 ; Essential (primary) hypertension I10 ; Dyspepsia R10.13 ; Neuropathy G62.9 ; Mixed hyperlipidemia E78.2 ; Anxiety F41.9 and Insomnia, unspecified G47.00 [facility] [id number] [place] [address] 30613- 5745 Jan, [place] [facility] [address] 24653- 9853 Jan, Chronic pain syndrome G89.4 ; Type 2 diabetes mellitus with unspecified complications E11.8 ; 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 ; Essential (primary) hypertension I10 ; Dyspepsia R10.13 ; Neuropathy G62.9 ; Mixed hyperlipidemia E78.2 ; Anxiety F41.9 and Insomnia, unspecified G47.00 [facility] [id number] [place] [address] 28584- 5927 Jan, [facility] [id number] [place] [address] 75430- 2634 Jan, [facility] [id number] [place] [address] 67681- 5397 December, Chronic pain syndrome G89.4 ; Type 2 diabetes mellitus with unspecified complications E11.8 ; retirement 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.4 ; Essential (primary) hypertension I10 ; Dyspepsia R10.13 ; Neuropathy G62.9 ; Mixed hyperlipidemia E78.2 ; Anxiety F41.9 and Insomnia, unspecified G47.00 [facility] [id number] [place] [address] 91744- 0709 December, [facility] [id number] [place] [address] 32819- 8640 Nov, [facility] [id number] [place] [address] 91491- 4328 Nov, [facility] [id number] [place] [address] 25434- 0242 Oct, Chronic pain syndrome G89.4 and Skin infection L08.9 [facility] [id number] [place] [address] 34706- 7620 Oct, [facility] [id number] [place] [address] 28690- 0339 Oct, [facility] [id number] [place] [address] 68166- 4257 Oct, [facility] [id number] [place] [address] 66700- 8975 Oct, [facility] [id number] [place] [address] 55234- 8765 Oct, [facility] [id number] [place] [address] 34914- 3849 Oct, [facility] [id number] [place] [address] 75757- 2273 Oct, Chronic pain syndrome G89.4 ; Type 2 diabetes mellitus with unspecified complications E11.8 ; retirement 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.4 ; Essential (primary) hypertension I10 ; Dyspepsia R10.13 ; Neuropathy G62.9 and Mixed hyperlipidemia E78.2 [facility] [address], [place] [address]- 4497 Oct, [facility] [id number] [place] [address] 74732- 9355 Sep, [facility] [id number] [place] [address] 79726- 6161 Sep, [facility] [id number] [place] [address] 98147- 8799 Sep, Chronic pain syndrome G89.4 [facility] [address], [place] [address]- 3786 Aug, [facility] [id number] [place] [address] 83257- 2392 Aug, Chronic pain syndrome G89.4 ; Type 2 diabetes mellitus with unspecified complications E11.8 ; retirement 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.4 ; Essential (primary) hypertension I10 and Dyspepsia R10.13 [facility] [id number] [place] [address] 59720- 5585 Aug, Rash R21 [facility] [facility] [address] 93268- 2516 Aug, [place] [facility] [id number] [place] [address] 86331- 0393 Aug, [place] [id number] [place] [address] 37394- 0346 Aug, [place] [id number] [place] [address] 38842- 2817 Aug, Insomnia, unspecified G47.00 ; Chronic pain syndrome G89.4 and Anxiety F41.9 [place] [id number] [place] [address] 22009- 9672 Aug, Depression, major, recurrent, in partial remission F33.41 and Anxiety disorder, unspecified F41.9 [place] [id number] [place] [address] 15321- 1127 Jul, [place] [id number] [place] [address] 86536- 1255 Jul, Chronic pain syndrome G89.4 ; Type 2 diabetes mellitus with unspecified complications E11.8 ; Gastro-esophageal reflux disease with esophagitis K21.0 ; 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 ; Mixed hyperlipidemia E78.2 ; Essential (primary) hypertension I10 ; Otalgia of both ears H92.03 and Alopecia L65.[address] [place] [address] 72141- 4012 Jul, [place] [id number] [place] [address] 89553- 3648 Jul, [facility] [id number] [place] [address] 78680- 2405 Jul, Anxiety F41.9 and Depressive disorder, not elsewhere classified 311 [facility] [id number] [place] [address] 25929- 0160 Jul, [facility] [id number] [place] [address] 70789- 0583 Jul, Insomnia, unspecified G47.00 ; Anxiety disorder, unspecified F41.9 and Major depressive disorder, single episode, unspecified F32.9 [place] [address] 75197- 1636 Jun, [facility] [address] 82823- 6880 Jun, Insomnia, unspecified G47.00 ; Generalized psoriasis L40.1 and Chronic pain syndrome G89.4 [facility] [id number] [place] [address] 82359- 6229 Jun, [facility] [address] 74313- 9945 Jun, [facility] [id number] [place] [address] 98583- 8119 Jun, Depressive disorder, not elsewhere classified 311 and Anxiety F41.9 [facility] [id number] [place] [address] 09404- 2616 Jun, Generalized psoriasis L40.1 [facility] [id number] [place] [address] 58559 -0204 Jun, Dermatitis L30.9 [facility] [address] 61469- 2846 May, Insomnia, unspecified G47.00 ; Chronic pain syndrome G89.4 and GERD (gastroesophageal reflux disease) K21.9 [facility] [address] 56424- 0891 May, Insomnia, unspecified G47.00 ; Anxiety disorder, unspecified F41.9 and Major depressive disorder, single episode, unspecified F32.9 [place] [address] 52300- 4672 May, Depressive disorder, not elsewhere classified 311 and Anxiety F41.[address] 40619- 9772 May, [address] 56891- 2054 May, Insomnia, unspecified G47.00 and Encounter for immunization Z23 [address] 77459- 8890 May, [address] 82476- 0963 May, Chronic pain syndrome G89.4 ; Mixed hyperlipidemia E78.2 ; Type 2 diabetes mellitus with unspecified complications E11.8 ; Essential ( primary) hypertension I10 ; Anxiety F41.9 ; Insomnia, unspecified G47.00 ; 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 M79.7 and 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 [place] [id number] [place] [address] 76778- 8998 Apr, [address] 76117- 9614 Apr, Dyspepsia 536.8 and Insomnia 780.[address] 19795- 0016 Apr, Other malaise and fatigue 780.[address] 74927- 5342 Apr, [address] 80559- 7305 Mar, Diabetes with neurological manifestations, type II or unspecified type, not stated as uncontrolled 250.60 ; Other chronic pain 338.29 ; Essential hypertension, benign 401.1 ; Anxiety state, unspecified 300.00 ; Insomnia 780.52 and Hyperlipidemia 272.4 [facility] [address], [place] [address]- 8526 Mar, [facility] [address], [place] [address]- 3222 Feb, [facility] [id number] [place] [address] 54547- 5258 Feb, [facility] [id number] [address]- 3900 Feb, [facility] [id number] [place] [address] 29882- 2609 Feb, [facility] [id number] [place] [address] 48575- 1567 Feb, [facility] [id number] [place] [address] 70340- 1474 Jan, Depressive disorder, not elsewhere classified 311 and Dyssomnia 780.56 [facility] [address], [place] [address]- 8461 Jan, Diabetes with neurological manifestations, type II or unspecified type, not stated as uncontrolled 250.60 ; Other chronic pain 338.29 ; Essential hypertension, benign 401.1 ; Anxiety state, unspecified 300.00 ; Insomnia 780.52 and Hyperlipidemia 272.4 [facility] [address], [place] [address]- 9622 Jan, [facility] [address], [place] [address]- 2545 Jan, [facility] [id number] [address]- 3620 Jan, [facility] [address], [place] [address]- 1670 Jan, [facility] [address], [place] [address]- 5952 Jan, [facility] [address], [place] [address]- 2154 Jan, [facility] [address] 3889 December, [facility] [address] [address]- 4420 December, [facility] [id number] [place] [address] 178733- 1906 December, [facility] [id number] [place] [address] 39817- 6114 December, [facility] [id number] [place] [id number]- [address] December, Anxiety state, unspecified 300.00 ; Other chronic pain 338.29 ; Diabetes with neurological manifestations, type II or unspecified type , not stated as uncontrolled 250.60 ; Essential hypertension, benign 401.1 ; Compression fracture of thoracic spine, non-traumatic 733.13 ; Wrist fracture, left 814.00 and Fall at home E888.9 [facility] [id number] [address] December, [facility] [id number] [address] December, [facility] [id number] [address] Nov, [facility] [id number] [address] Nov, [facility] [id number] [address] Nov, [facility] [id number], [place] [address] Nov, [facility] [id number] [address] Oct, [facility] [place] [facility] [address] [id number] [place] [address] Oct, [facility] [place] [facility] [address] [id number] [place] [address] Oct, [facility] [place] [facility] [address] [id number] [place] [address] Oct, [facility] [place] [facility] [address] [id number] [place] [address] Oct, [facility] [place] [facility] [address] [id number] [place] [address] Oct, [facility] [place] [facility] [address] [id number] [place] [address] Oct, [facility] [place] [facility] [address] [id number] [place] [address] Oct, [facility] [place] [facility] [address] [id number] [place] [address] Sep, [facility] [place] [facility] [address] [id number] [place] [address] Sep, [facility] [place] [facility] [address] [id number] [place] [address] Sep, [facility] [place] [facility] [address] [id number] [place] [address] Sep, [facility] [place] [facility] [address] [id number] [place] [address] Aug, [facility] [place] [facility] [address] [id number] [place] [address] Aug, [facility] [place] [facility] [address] [id number] [place] [address] Aug, [facility] [place] [facility] [address] [id number] [place] [address] Aug, [facility] [place] [facility] [address] [id number] [place] [address] Aug, [facility] [address] [facility] [id number] [place] [address] Aug, [facility] [address] [facility] [id number] [place] [address] Aug, [facility] [address] [facility] [id number] [place] [address] Aug, IMMUNIZATIONS No Known Immunizations SOCIAL HISTORY Never Assessed REASON FOR VISIT 4 month refills PLAN OF CARE VITAL SIGNS MEDICATIONS Medication Instructions Dosage Frequency Start Date End Date Duration Status NovoLog Flexpen 100 UNIT/ML Subcutaneous 3 times a day Inject 13 units 8h Jan, Active Levemir FlexTouch 100 UNIT/ML Subcutaneous 2 times a day Inject 25 units 12h Jan, Active RESULTS No Results PROCEDURES No Known [...]
--- OUTSIDE RECORDS SUMMARY | 2018-01-14 12:12 | XMS REPORT ---
Author Author LANIE BRIONES [facility] Address [address] [place] [address] Care Team Providers Care Support Manager Name Role Phone LANIE BRIONES Unavailable PROBLEMS Type Condition ICD9-CM Code [id number] Code Onset Dates Condition Status SNOMED Code Diagnosis Mixed hyperlipidemia E78.2 Active 090474398 Problem Generalized psoriasis L40.1 Active 794592946 Diagnosis Arthritis M19.90 Active 2901505 Problem Major depressive disorder, single episode, unspecified F32.9 Active 00577572 Problem Type 2 diabetes mellitus with unspecified complications E11.8 Active 483140107 Problem Neuropathy G62.9 Active 467749143 Problem Dyspepsia R10.13 Active 793255879 Problem Weight loss, unintentional R63.4 Active 349508887 Problem Type 2 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 Active 31953131 Condition Depressive disorder, not elsewhere classified 311 Active 04590361 Diagnosis Anxiety F41.9 Active 36059986 Diagnosis Gastro-esophageal reflux disease with esophagitis K21.0 Active 061871748 Diagnosis Chronic pain syndrome G89.4 Active 63648512 Problem skilled nursing 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.4 Active 305522834 Problem Insomnia, unspecified G47.00 Active 743463840 Problem 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 M79.7 Active 11310143 Diagnosis Essential (primary) hypertension I10 Active 89075176 ALLERGIES No Information ENCOUNTERS Encounter Location Date Diagnosis [facility], [place] [address] [address] Nov, [facility], [place] [id number] [place] [address] 37734- 7729 Nov, [facility], [place] [address] [address] Oct, Major depressive disorder, single episode, unspecified F32.9 [facility], [place] [id number] [place] [address] 25615- 0369 Oct, Chronic pain syndrome G89.4 and Anxiety F41.9 [facility] [id number] [place] [address] 71172- 6976 Oct, [facility] [id number] [place] [address] 17325- 9485 Sep, Major depressive disorder, single episode, unspecified F32.9 and Chronic pain syndrome G89.4 [facility] [id number] [place] [address] 57965- 9966 Sep, [place] [id number] [place] [address] 75528- 8030 Aug, Chronic pain syndrome G89.4 and Anxiety F41.9 [facility] [id number] [place] [address] 52835- 7013 Aug, Chronic pain syndrome G89.4 and Anxiety F41.9 [place] [id number] [place] [address] 42353- 8145 Aug, [place] [id number] [place] [address] 75758- 9278 Aug, Anxiety F41.9 and Chronic pain syndrome G89.4 [place] [id number] [place] [address] 55052- 2068 Aug, [place] [id number] [place] [address] 04265- 7090 Aug, Anxiety F41.9 ; Chronic pain syndrome G89.4 and Insomnia, unspecified G47.00 [facility] [id number] [place] [address] 13037- 9761 Jul, Chronic pain syndrome G89.4 ; Insomnia, unspecified G47.00 ; Type 2 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 ; 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 ; Anxiety F41.9 and Essential (primary) hypertension I10 [place] [facility] [address] [address] 5[address] Jul, [facility], [place] [address], [place] [address] 9559 Jul, [facility], [place] [address] [address] 4389 Jul, [facility], [place] [id number] [place] [address] 272473- 2710 Jul, Encounter for immunization Z23 [facility], [place] [id number] [place] [address] 79431- 2287 Jun, [facility], [place] [id number] [place] [address] 54232- 9683 Jun, [facility], [place] [address] [place] [address] 93314- 1668 May, [facility], [place] [address] [place] [address] 56324- 3772 May, [facility], [place] [address] [address] 0166 May, [facility], [place] [address] [address] 5819 Apr, Chronic pain syndrome G89.4 ; Anxiety F41.9 and Dyspepsia R10.13 [facility], [place] [address], [place] [address] 0495 Apr, [facility], [place] [address], [place] [address] 1888 Mar, Chronic pain syndrome G89.4 and Anxiety F41.9 [facility], [place] [address], [place] [address] 1379 Mar, Chronic pain syndrome G89.4 [facility], [place] [address] [address] 2620 Feb, Chronic pain syndrome G89.4 and Anxiety F41.9 [facility], [place] [address] [facility] [id number] [address] 2808 Feb, [facility], [place] [address] [facility] [id number] [place] [address] 73887- 6521 Feb, Systolic murmur R01.1 [facility], [place] [address] [facility] [id number] [address] 6906 Feb, [facility], [place] [address] [facility] [id number] [place] [address] 28471- 2763 Feb, [facility], [place] [address] [facility] [id number] [place] [address] 56875- 7580 Feb, Chronic pain syndrome G89.4 [facility], [place] [id number] [place] [address] 66615- 7010 Jan, [facility], [place] [address] [place] [address] 50862- 6826 Jan, Heart murmur on physical examination R01.1 ; Anxiety F41.9 and Chronic pain syndrome G89.4 [facility], [place] [address] [facility] [id number] [place] [address] 42486- 0672 Jan, Anxiety F41.9 and Chronic pain syndrome G89.4 [facility], [place] [id number] [place] [address] 70889- 8524 Jan, [facility], [place] [address] [place] [address] 96921- 9776 Jan, Other malaise R53.81 [facility], [place] [address] [facility] [id number] [address]- 4390 Jan, [facility], [place] [id number] [place] [address] 73210- 3909 Jan, [facility], [place] [id number] [address]- 9677 Jan, Chronic pain syndrome G89.4 [facility], [place] [address] [place] [address] 74064- 5578 December, Other malaise R53.81 [facility], [place] [address] 42645- 6559 December, Type 2 diabetes mellitus with unspecified complications E11.8 [facility], [place] [id number] [place] [address] 75035- 0095 December, Anxiety F41.9 and Chronic pain syndrome G89.4 [facility], [place] [address] 65776- 3422 December, Type 2 diabetes mellitus with unspecified complications E11.8 ; Anxiety F41.9 ; 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 and Chronic pain syndrome G89.4 [facility] [place] [id number] [place] [address] 86686- 4624 Nov, [facility], [place] [address] 02523- 9901 Nov, [facility], [place] [address] 23717- 3363 Nov, Anxiety F41.9 and Chronic pain syndrome G89.4 [facility] [id number] [place] [address] 80688 -9586 Nov, Type 2 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 and Acute non-recurrent pansinusitis J01.40 [facility], [place] [address] [place] [address] 12754- 1874 Nov, Type 2 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 [facility], [place] [id number] [place] [address] 90397- 2134 Nov, [place] [address] 18555- 0459 Oct, Chronic pain syndrome G89.4 [facility], [place] [id number] [place] [address] 81059- 0760 Oct, Chronic pain syndrome G89.4 and Anxiety F41.9 [place] [id number] [place] [address] 70035- 9613 Oct, Chronic pain syndrome G89.4 [place] [address] [place] [address] 55955- 7530 Sep, Anxiety F41.9 and Chronic pain syndrome G89.4 [place] [address] 03853- 1356 Aug, Chronic pain syndrome G89.4 ; Essential (primary) hypertension I10 ; Dyspepsia R10.13 ; Neuropathy G62.9 ; Mixed hyperlipidemia E78.2 ; Anxiety F41.9 ; Insomnia, unspecified G47.00 and Weight loss, unintentional R63.4 [place] [address] [place] [address] 71287- 0417 Aug, Chronic pain syndrome G89.4 [place] [address] [place] [address] 64003- 1387 Aug, Type 2 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 ; Chronic pain syndrome G89.4 ; skilled nursing 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.4 and Wound, open, forearm, right, initial encounter S51.801A [place] [address] [place] [address] 89821- 5976 Jul, [place] [id number] [place] [address] 57617- 6421 Jun, [place] [id number] [place] [address] 19691- 0808 Jun, [place] [address] 71864- 5287 Jun, Chronic pain syndrome G89.4 ; Type 2 diabetes mellitus with unspecified complications E11.8 ; skilled nursing 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.4 ; Essential (primary) hypertension I10 ; Dyspepsia R10.13 ; Neuropathy G62.9 ; Mixed hyperlipidemia E78.2 ; Anxiety F41.9 ; Insomnia, unspecified G47.00 and Alteration in mobility due to weakness R53.1 [facility], [place] [id number], [place] [address]- 6227 May, [facility], [place] [id number] [place] [address] 06548- 9165 May, [facility], [place] [id number] [place] [address] 32469- 0497 May, [facility], [place] [id number] [place] [address] 73436- 7821 May, [facility], [place] [id number] [place] [address] 25171- 6908 Apr, [facility], [place] [id number] [place] [address] 77258- 8376 Apr, [facility], [place] [id number] [place] [address] 45611- 0954 Apr, [facility], [place] [id number] [place] [address] 17218- 0376 Mar, [facility], [place] [id number] [place] [address] 78542- 7563 Mar, Chronic pain syndrome G89.4 ; Type 2 diabetes mellitus with unspecified complications E11.8 ; skilled nursing 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.4 ; Essential (primary) hypertension I10 ; Dyspepsia R10.13 ; Neuropathy G62.9 ; Mixed hyperlipidemia E78.2 ; Anxiety F41.9 and Insomnia, unspecified G47.00 [facility], [place] [address] [place] [address] 98064- 3969 Mar, [facility], [place] [id number] [place] [address] 70987- 9818 Mar, [facility], [place] [id number] [place] [address] 41490- 3514 Feb, [facility], [place] [id number] [place] [address] 24771- 7226 Feb, Chronic pain syndrome G89.4 ; Type 2 diabetes mellitus with unspecified complications E11.8 ; 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 ; Essential (primary) hypertension I10 ; Dyspepsia R10.13 ; Neuropathy G62.9 ; Mixed hyperlipidemia E78.2 ; Anxiety F41.9 and Insomnia, unspecified G47.00 [place] [id number] [place] [address] 24959- 1069 Jan, [place] [address] 42331- 2463 Jan, Chronic pain syndrome G89.4 ; Type 2 diabetes mellitus with unspecified complications E11.8 ; 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 ; Essential (primary) hypertension I10 ; Dyspepsia R10.13 ; Neuropathy G62.9 ; Mixed hyperlipidemia E78.2 ; Anxiety F41.9 and Insomnia, unspecified G47.00 [place] [id number] [place] [address] 46388- 0817 Jan, [place] [id number] [place] [address] 76768- 5027 Jan, [place] [id number] [place] [address] 96527- 7791 December, Chronic pain syndrome G89.4 ; Type 2 diabetes mellitus with unspecified complications E11.8 ; skilled nursing 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.4 ; Essential (primary) hypertension I10 ; Dyspepsia R10.13 ; Neuropathy G62.9 ; Mixed hyperlipidemia E78.2 ; Anxiety F41.9 and Insomnia, unspecified G47.00 [place] [id number] [place] [address] 70478- 5604 December, [place] [id number] [place] [address] 55193- 9742 Nov, [place] [address] [place] [address] 90599- 4913 Nov, [place] [address] [place] [address] 67643- 1669 Oct, Chronic pain syndrome G89.4 and Skin infection L08.9 [facility], [place] [id number] [place] [address] 36011- 1186 Oct, [facility], [place] [id number] [place] [address] 68924- 9991 Oct, [facility], [place] [id number] [place] [address] 20567- 8049 Oct, [facility], [place] [id number] [place] [address] 48896- 3861 Oct, [facility], [place] [id number] [place] [address] 74600- 2183 Oct, [facility], [place] [id number] [place] [address] 69086- 5038 Oct, [facility], [place] [id number] [place] [address] 36204- 0232 Oct, Chronic pain syndrome G89.4 ; Type 2 diabetes mellitus with unspecified complications E11.8 ; skilled nursing 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.4 ; Essential (primary) hypertension I10 ; Dyspepsia R10.13 ; Neuropathy G62.9 and Mixed hyperlipidemia E78.2 [facility], [place] [address] [address]- 6511 Oct, [facility], [place] [address] [place] [address] 29257- 3856 Sep, [facility], [place] [address] [place] [address] 78205- 7748 Sep, [facility], [place] [id number] [place] [address] 00589- 1734 Sep, Chronic pain syndrome G89.4 [facility], [place] [address] [address]- 1959 Aug, [facility], [place] [address] [place] [address] 34358- 3111 Aug, Chronic pain syndrome G89.4 ; Type 2 diabetes mellitus with unspecified complications E11.8 ; skilled nursing 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.4 ; Essential (primary) hypertension I10 and Dyspepsia R10.13 [place] [address] [place] [address] 34337- 3649 Aug, Rash R21 [place] [address] 61125- 5689 Aug, [place] [id number] [place] [address] 59434- 2827 Aug, [place] [id number] [place] [address] 80036- 8051 Aug, [place] [id number] [place] [address] 21792- 5622 Aug, Insomnia, unspecified G47.00 ; Chronic pain syndrome G89.4 and Anxiety F41.9 [place] [id number] [place] [address] 79481- 4494 Aug, Depression, major, recurrent, in partial remission F33.41 and Anxiety disorder, unspecified F41.9 [place] [id number] [place] [address] 71919- 3004 Jul, [place] [id number] [place] [address] 81100- 6339 Jul, Chronic pain syndrome G89.4 ; Type 2 diabetes mellitus with unspecified complications E11.8 ; Gastro-esophageal reflux disease with esophagitis K21.0 ; 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 ; Mixed hyperlipidemia E78.2 ; Essential (primary) hypertension I10 ; Otalgia of both ears H92.03 and Alopecia L65.[address] [place] [address] 35984- 1260 Jul, [place] [id number] [place] [address] 81478- 9807 Jul, [facility], [place] [id number] [place] [address] 39004- 5447 Jul, Anxiety F41.9 and Depressive disorder, not elsewhere classified 311 [facility], [place] [id number] [place] [address] 77820- 3220 Jul, [facility], [place] [id number] [place] [address] 08712- 3791 Jul, Insomnia, unspecified G47.00 ; Anxiety disorder, unspecified F41.9 and Major depressive disorder, single episode, unspecified F32.9 [place] [address] 63500- 2777 Jun, [facility], [place] [address] 49757- 0402 Jun, Insomnia, unspecified G47.00 ; Generalized psoriasis L40.1 and Chronic pain syndrome G89.4 [facility], [place] [id number] [place] [address] 95661- 9258 Jun, [facility], [place] [address] 65200- 0793 Jun, [facility], [place] [id number] [place] [address] 69983- 0717 Jun, Depressive disorder, not elsewhere classified 311 and Anxiety F41.9 [facility], [place] [id number] [place] [address] 58279- 3605 Jun, Generalized psoriasis L40.1 [facility] [id number] [place] [address] 21240 -1363 Jun, Dermatitis L30.9 [facility], [place] [address] 78151- 4641 May, Insomnia, unspecified G47.00 ; Chronic pain syndrome G89.4 and GERD (gastroesophageal reflux disease) K21.9 [facility], [place] [address] 85284- 4311 May, Insomnia, unspecified G47.00 ; Anxiety disorder, unspecified F41.9 and Major depressive disorder, single episode, unspecified F32.9 [place] [address] 88966- 9052 May, Depressive disorder, not elsewhere classified 311 and Anxiety F41.[address] 70819- 2075 May, [address] 41039- 5040 May, Encounter for immunization Z23 and Insomnia, unspecified G47.[address] 98430- 9459 May, [address] 05643- 7169 May, Chronic pain syndrome G89.4 ; Mixed hyperlipidemia E78.2 ; Type 2 diabetes mellitus with unspecified complications E11.8 ; Essential ( primary) hypertension I10 ; Anxiety F41.9 ; Insomnia, unspecified G47.00 ; 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 M79.7 and 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 [place] [id number] [place] [address] 34402- 0258 Apr, [address] 39719- 3540 Apr, Dyspepsia 536.8 and Insomnia 780.[address] 69440- 9134 Apr, Other malaise and fatigue 780.[address] 84979- 8358 Apr, [address] 65452- 1045 Mar, Diabetes with neurological manifestations, type II or unspecified type, not stated as uncontrolled 250.60 ; Other chronic pain 338.29 ; Essential hypertension, benign 401.1 ; Anxiety state, unspecified 300.00 ; Insomnia 780.52 and Hyperlipidemia 272.4 [facility], [place] [address] [address]- 9414 Mar, [facility], [place] [address], [place] [address]- 1306 Feb, [facility], [place] [address] [place] [address] 32056- 3555 Feb, [facility], [place] [address] [address]- 1006 Feb, [facility], [place] [id number] [place] [address]- 5104 Feb, [facility], [place] [id number] [place] [address] 6[address]- 6323 Feb, [facility], [place] [id number] [place] [address]- 8557 Jan, Depressive disorder, not elsewhere classified 311 and Dyssomnia 780.56 [facility], [place] [id number] [address] Jan, Diabetes with neurological manifestations, type II or unspecified type, not stated as uncontrolled 250.60 ; Other chronic pain 338.29 ; Essential hypertension, benign 401.1 ; Anxiety state, unspecified 300.00 ; Insomnia 780.52 and Hyperlipidemia 272.4 [facility], [place] [id number] [address] Jan, [facility], [place] [id number] [address] Jan, [facility], [place] [id number] [address] Jan, [facility], [place] [id number] [address] Jan, [facility], [place] [id number] [address] Jan, [facility], [place] [id number] [address] Jan, [facility], [place] [id number] [address] December, [facility], [place] [id number] [address] December, [facility], [place] [id number] [place] [address] 065249- 8696 December, [facility], [place] [id number] [place] [address] 89890- 0434 December, [facility], [place] [id number] [place] [address] 050245- 3345 December, Anxiety state, unspecified 300.00 ; Other chronic pain 338.29 ; Diabetes with neurological manifestations, type II or unspecified type , not stated as uncontrolled 250.60 ; Essential hypertension, benign 401.1 ; Compression fracture of thoracic spine, non-traumatic 733.13 ; Wrist fracture, left 814.00 and Fall at home E888.9 [facility], [place] [id number] [address] December, [facility] [place] [id number] [address] December, [facility] [place] [id number] [address] Nov, [facility] [place] [id number] [address] Nov, [facility], [place] [id number] [address] Nov, [facility], [place] [id number] [address] Nov, [facility], [place] [id number] [address] Oct, [facility] [place] [facility] [address] [id number] [place] [address] Oct, [facility] [place] [facility] [address] [id number] [place] [address] Oct, [facility] [place] [facility] [address] [id number] [place] [address] Oct, [facility] [place] [facility] [address] [id number] [place] [address] Oct, [facility] [place] [facility] [address] [id number] [place] [address] Oct, [facility] [place] [facility] [address] [id number] [place] [address] Oct, [facility] [place] [facility] [address] [id number] [place] [address] Oct, [facility] [place] [facility] [address] [id number] [place] [address] Sep, [facility] [place] [facility] [address] [id number] [place] [address] Sep, [facility] [place] [facility] [address] [id number] [place] [address] Sep, [facility] [place] [facility] [address] [id number] [place] [address] Sep, [facility] [place] [facility] [address] [id number] [place] [address] Aug, [facility] [place] [facility] [address] [id number] [place] [address] Aug, [facility] [place] [facility] [address] [id number] [place] [address] Aug, [facility] [place] [facility] [address] [id number] [place] [address] Aug, [facility] [place] [facility] [address] [id number] [place] [address] Aug, [facility], [place] [address] [facility] [id number] [place] [address] Aug, [facility], [place] [address] [facility] [id number] [place] [address] Aug, [facility], [place] [address] [facility] [id number] [place] [address] Aug, IMMUNIZATIONS No Known Immunizations SOCIAL HISTORY Never Assessed REASON FOR VISIT Paperwork PLAN OF CARE VITAL SIGNS MEDICATIONS Unknown [...]
--- OUTSIDE RECORDS SUMMARY | 2018-01-14 12:13 | XMS REPORT ---
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 Name Role Phone LANIE BRIONES Unavailable PROBLEMS Type Condition ICD9-CM Code PGV81-QU Code Onset Dates Condition Status SNOMED Code Diagnosis Mixed hyperlipidemia E78.2 Active 091421301 Problem Generalized psoriasis L40.1 Active 382724322 Diagnosis Arthritis M19.90 Active 8901040 Problem Major depressive disorder, single episode, unspecified F32.9 Active 89855359 Problem Type 2 diabetes mellitus with unspecified complications E11.8 Active 834783915 Problem Neuropathy G62.9 Active 544308775 Problem Dyspepsia R10.13 Active 737512424 Problem Weight loss, unintentional R63.4 Active 344168901 Problem Type 2 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 Active 62939275 Condition Depressive disorder, not elsewhere classified 311 Active 79082739 Diagnosis Anxiety F41.9 Active 28659556 Diagnosis Gastro-esophageal reflux disease with esophagitis K21.0 Active 324540135 Diagnosis Chronic pain syndrome G89.4 Active 87511745 Problem half-way 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.4 Active 691380108 Problem Insomnia, unspecified G47.00 Active 686676932 Problem 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 M79.7 Active 39798360 Diagnosis Essential (primary) hypertension I10 Active 07857519 ALLERGIES No Information ENCOUNTERS Encounter Location Date Diagnosis [facility] [address] [address] Nov, [facility] [id number] [place] [address] 03383- 4319 Nov, [facility] [address] [place] [address] 54904- 7374 Oct, Chronic pain syndrome G89.4 and Anxiety F41.9 [place] [address] [address] 1569 Oct, Major depressive disorder, single episode, unspecified F32.9 [facility] [id number] [place] [address] 81415- 9766 Oct, Chronic pain syndrome G89.4 and Anxiety F41.9 [facility] [address] [place] [address] 35439- 4646 Oct, [facility] [id number] [place] [address] 65317- 0592 Sep, Major depressive disorder, single episode, unspecified F32.9 and Chronic pain syndrome G89.4 [facility] [id number] [place] [address] 30958- 9123 Sep, [facility] [id number] [place] [address] 67550- 3930 Aug, Chronic pain syndrome G89.4 and Anxiety F41.9 [facility] [place] [id number] [place] [address] 69285- 4121 Aug, Chronic pain syndrome G89.4 and Anxiety F41.9 [place] [place] [address] [place] [address] 06771- 1394 Aug, [facility] [address] [address]- 3878 Aug, Anxiety F41.9 and Chronic pain syndrome G89.4 [facility] [address] [address] 6325 Aug, [facility] [id number] [place] [address] 21747- 1804 Aug, Anxiety F41.9 ; Chronic pain syndrome G89.4 and Insomnia, unspecified G47.00 [facility] [address] [address] 7363 Jul, Chronic pain syndrome G89.4 ; Insomnia, unspecified G47.00 ; Type 2 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 ; half-way 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.4 ; Anxiety F41.9 and Essential (primary) hypertension I10 [facility] [id number] [place] [address] 62592- 9335 Jul, [facility] [address] 55351- 8108 Jul, [facility] [address] 49025- 1702 Jul, [facility] [address] 65319- 2266 Jul, Encounter for immunization Z23 [facility] [address] 22596- 3581 Jun, [facility] [address] 03377- 3253 Jun, [facility] [address] 33617- 5470 May, [facility] [address] 65071- 0879 May, [facility] [id number] [place] [address] 41844- 5868 May, [facility] [id number] [place] [address] 50936- 8550 Apr, Chronic pain syndrome G89.4 ; Anxiety F41.9 and Dyspepsia R10.13 [facility] [id number] [place] [address] 19982- 7962 Apr, [facility] [address] 32127- 9762 Mar, Chronic pain syndrome G89.4 and Anxiety F41.9 [facility] [id number] [place] [address] 68493- 5260 Mar, Chronic pain syndrome G89.4 [facility] [address] [facility] [id number] [address] 2098 Feb, Chronic pain syndrome G89.4 and Anxiety F41.9 [facility] [id number] [address] 4339 Feb, [facility] [address], [place] [address]- 9695 Feb, Systolic murmur R01.1 [facility] [address] [facility] [id number] [address] 8104 Feb, [facility] [id number] [place] [address] 76890- 9870 Feb, [facility] [address], [place] [address]- 4697 Feb, Chronic pain syndrome G89.4 [facility] [address] [place] [address] 65041- 9408 Jan, [facility] [address] [place] [address] 47879- 3739 Jan, Heart murmur on physical examination R01.1 ; Anxiety F41.9 and Chronic pain syndrome G89.4 [facility] [address], [place] [address]- 7043 Jan, Anxiety F41.9 and Chronic pain syndrome G89.4 [facility] [address], [place] [address]- 2147 Jan, [facility] [id number] [address]- 6621 Jan, Other malaise R53.81 [facility] [address], [place] [address]- 2549 Jan, [facility] [address], [place] [address]- 9969 Jan, [facility] [id number] [place] [address] 21823- 6209 Jan, Chronic pain syndrome G89.4 [facility] [id number] [place] [address] 99096- 8317 December, Other malaise R53.81 [facility] [id number] [place] [address] 98176- 1078 December, Type 2 diabetes mellitus with unspecified complications E11.8 [facility] [id number] [place] [address] 82359- 3401 December, Anxiety F41.9 and Chronic pain syndrome G89.4 [facility] [id number] [place] [address] 51683- 5794 December, Type 2 diabetes mellitus with unspecified complications E11.8 ; Anxiety F41.9 ; 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 and Chronic pain syndrome G89.4 [place] [id number] [place] [address] 24750- 5571 Nov, [facility] [id number] [place] [address] 46112- 7995 Nov, [facility] [id number] [place] [address] 49820- 0027 Nov, Anxiety F41.9 and Chronic pain syndrome G89.4 [facility] [address] [place] [address] 56566 -8883 Nov, Type 2 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 and Acute non-recurrent pansinusitis J01.40 [facility] [id number] [place] [address] 23807- 2216 Nov, Type 2 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 [facility] [id number] [place] [address] 71008- 1646 Nov, [facility] [id number] [place] [address] 86131- 9261 Oct, Chronic pain syndrome G89.4 [place] [address] [place] [address] 73121- 8435 Oct, Chronic pain syndrome G89.4 and Anxiety F41.9 [place] [id number] [place] [address] 28345- 6962 Oct, Chronic pain syndrome G89.4 [facility] [id number] [place] [address] 27126- 9504 Sep, Anxiety F41.9 and Chronic pain syndrome G89.4 [facility] [id number] [place] [address] 71843- 2402 Aug, Chronic pain syndrome G89.4 ; Essential (primary) hypertension I10 ; Dyspepsia R10.13 ; Neuropathy G62.9 ; Mixed hyperlipidemia E78.2 ; Anxiety F41.9 ; Insomnia, unspecified G47.00 and Weight loss, unintentional R63.4 [facility] [id number] [place] [address] 67512- 5709 Aug, Chronic pain syndrome G89.4 [facility] [id number] [place] [address] 87559- 9248 Aug, Type 2 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 ; Chronic pain syndrome G89.4 ; half-way 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.4 and Wound, open, forearm, right, initial encounter S51.801A [facility] [id number] [place] [address] 32606- 5410 Jul, [facility] [id number] [place] [address] 52824- 2169 Jun, [facility] [id number] [place] [address] 68255- 3729 Jun, [facility] [id number] [place] [address] 97935- 4201 Jun, Chronic pain syndrome G89.4 ; Type 2 diabetes mellitus with unspecified complications E11.8 ; half-way 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.4 ; Essential (primary) hypertension I10 ; Dyspepsia R10.13 ; Neuropathy G62.9 ; Mixed hyperlipidemia E78.2 ; Anxiety F41.9 ; Insomnia, unspecified G47.00 and Alteration in mobility due to weakness R53.1 [facility] [id number] [place] [address] 27991- 3401 May, [facility] [id number] [place] [address] 59982- 7368 May, [facility] [id number] [place] [address] 09485- 0016 May, [facility] [address] 76125- 1566 May, [facility] [id number] [place] [address] 70545- 1040 Apr, [facility] [address] 55597- 7987 Apr, [facility] [id number] [place] [address] 99019- 0154 Apr, [facility] [id number] [place] [address] 94434- 7824 Mar, [facility] [id number] [place] [address] 81908- 8359 Mar, Chronic pain syndrome G89.4 ; Type 2 diabetes mellitus with unspecified complications E11.8 ; 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 ; Essential (primary) hypertension I10 ; Dyspepsia R10.13 ; Neuropathy G62.9 ; Mixed hyperlipidemia E78.2 ; Anxiety F41.9 and Insomnia, unspecified G47.00 [facility] [id number] [place] [address] 19268- 4615 Mar, [facility] [id number] [place] [address] 80864- 7977 Mar, [facility] [address] [place] [address]- 2687 Feb, [facility] [id number] [place] [address] 10236- 9892 Feb, Chronic pain syndrome G89.4 ; Type 2 diabetes mellitus with unspecified complications E11.8 ; 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 ; Essential (primary) hypertension I10 ; Dyspepsia R10.13 ; Neuropathy G62.9 ; Mixed hyperlipidemia E78.2 ; Anxiety F41.9 and Insomnia, unspecified G47.00 [place] [id number] [place] [address] 00582- 2419 Jan, [place] [facility] [address] 56932- 6509 Jan, Chronic pain syndrome G89.4 ; Type 2 diabetes mellitus with unspecified complications E11.8 ; half-way 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.4 ; Essential (primary) hypertension I10 ; Dyspepsia R10.13 ; Neuropathy G62.9 ; Mixed hyperlipidemia E78.2 ; Anxiety F41.9 and Insomnia, unspecified G47.00 [place] [id number] [place] [address] 37934- 0714 Jan, [place] [id number] [place] [address] 94340- 2300 Jan, [place] [id number] [place] [address] 37678- 6108 December, Chronic pain syndrome G89.4 ; Type 2 diabetes mellitus with unspecified complications E11.8 ; 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 ; Essential (primary) hypertension I10 ; Dyspepsia R10.13 ; Neuropathy G62.9 ; Mixed hyperlipidemia E78.2 ; Anxiety F41.9 and Insomnia, unspecified G47.00 [place] [id number] [place] [address] 74099- 8238 December, [facility] [id number] [place] [address] 42578- 4859 Nov, [place] [address] [address]- 2864 Nov, [facility] [address], [place] [address]- 0770 Oct, Chronic pain syndrome G89.4 and Skin infection L08.9 [facility] [address], [place] [address]- 6688 Oct, [facility] [id number] [place] [address] 60740- 3971 Oct, [facility] [address], [place] [address]- 1959 Oct, [facility] [address] [place] [address] 97135- 9512 Oct, [facility] [id number] [place] [address] 23779- 7675 Oct, [facility] [address] [place] [address] 58310- 8914 Oct, [facility] [address] [place] [address] 57113- 0162 Oct, Chronic pain syndrome G89.4 ; Type 2 diabetes mellitus with unspecified complications E11.8 ; 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 ; Essential (primary) hypertension I10 ; Dyspepsia R10.13 ; Neuropathy G62.9 and Mixed hyperlipidemia E78.2 [facility] [address], [place] [address]- 4529 Oct, [facility] [address], [place] [address]- 6396 Sep, [facility] [address], [place] [address]- 9219 Sep, [facility] [address], [place] [address]- 8526 Sep, Chronic pain syndrome G89.4 [place] [id number] [place] [address] 90413- 3223 Aug, [place] [id number] [place] [address] 51980- 9817 Aug, Chronic pain syndrome G89.4 ; Type 2 diabetes mellitus with unspecified complications E11.8 ; 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 ; Essential (primary) hypertension I10 and Dyspepsia R10.13 [place] [id number] [place] [address] 84349- 9825 Aug, Rash R21 [address] 88718- 3211 Aug, [place] [address] 53115- 8953 Aug, [address] 85643- 5114 Aug, [place] [id number] [place] [address] 12194- 7594 Aug, Insomnia, unspecified G47.00 ; Chronic pain syndrome G89.4 and Anxiety F41.9 [place] [id number] [place] [address] 63881- 8198 Aug, Depression, major, recurrent, in partial remission F33.41 and Anxiety disorder, unspecified F41.9 [place] [id number] [place] [address] 18880- 6743 Jul, [place] [id number] [place] [address] 53304- 3978 Jul, Chronic pain syndrome G89.4 ; Type 2 diabetes mellitus with unspecified complications E11.8 ; Gastro-esophageal reflux disease with esophagitis K21.0 ; half-way 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.4 ; Mixed hyperlipidemia E78.2 ; Essential (primary) hypertension I10 ; Otalgia of both ears H92.03 and Alopecia L65.9 [place] [id number] [place] [address] 94624- 5844 Jul, [facility] [address] 82894- 5124 Jul, [facility] [address] 068241- 7352 Jul, Anxiety F41.9 and Depressive disorder, not elsewhere classified 311 [facility] [address] 888238- 4924 Jul, [facility] [address] 48242- 2678 Jul, Insomnia, unspecified G47.00 ; Anxiety disorder, unspecified F41.9 and Major depressive disorder, single episode, unspecified F32.9 [place] [address] 16135- 1974 Jun, [facility] [address] 47658- 1918 Jun, Insomnia, unspecified G47.00 ; Generalized psoriasis L40.1 and Chronic pain syndrome G89.4 [place] [address] 21320- 4760 Jun, [facility] [id number] [place] [address] 67438- 7275 Jun, [facility] [address] 64224- 0146 Jun, Depressive disorder, not elsewhere classified 311 and Anxiety F41.9 [facility] [id number] [place] [address] 83806- 3153 Jun, Generalized psoriasis L40.1 [facility] [id number] [place] [address] 87332 -4603 Jun, Dermatitis L30.9 [facility] [id number] [place] [address] 48830- 7418 May, Insomnia, unspecified G47.00 ; Chronic pain syndrome G89.4 and GERD (gastroesophageal reflux disease) K21.[address] 55026- 0997 May, Insomnia, unspecified G47.00 ; Anxiety disorder, unspecified F41.9 and Major depressive disorder, single episode, unspecified F32.[address] 50948- 5510 May, Depressive disorder, not elsewhere classified 311 and Anxiety F41.[address] 51093- 0068 May, [address] 18421- 1339 May, Insomnia, unspecified G47.00 and Encounter for immunization Z23 [address] 85837- 5039 May, [address] 74212- 5231 May, Chronic pain syndrome G89.4 ; Mixed hyperlipidemia E78.2 ; Type 2 diabetes mellitus with unspecified complications E11.8 ; Essential ( primary) hypertension I10 ; Anxiety F41.9 ; Insomnia, unspecified G47.00 ; 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 M79.7 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 23527- 6110 Apr, [address] 01506- 7520 Apr, Dyspepsia 536.8 and Insomnia 780.[address] 75313- 6875 Apr, Other malaise and fatigue 780.[address] 34632- 5591 Apr, [address] [place] [address]- 6651 Mar, Diabetes with neurological manifestations, type II or unspecified type, not stated as uncontrolled 250.60 ; Other chronic pain 338.29 ; Essential hypertension, benign 401.1 ; Anxiety state, unspecified 300.00 ; Insomnia 780.52 and Hyperlipidemia 272.4 [facility] [address] [address]- 4093 Mar, [facility] [id number] [place] [address] 72629- 4449 Feb, [facility] [id number] [place] [address] 78603- 3724 Feb, [facility] [id number] [place] [address] 76613- 2981 Feb, [facility] [id number] [place] [address] 42191- 5039 Feb, [facility] [id number] [place] [address] 39617- 9250 Feb, [facility] [address] [place] [address] 71076- 5877 Jan, Depressive disorder, not elsewhere classified 311 and Dyssomnia 780.56 [facility] [address] [address]- 3897 Jan, Diabetes with neurological manifestations, type II or unspecified type, not stated as uncontrolled 250.60 ; Other chronic pain 338.29 ; Essential hypertension, benign 401.1 ; Anxiety state, unspecified 300.00 ; Insomnia 780.52 and Hyperlipidemia 272.4 [facility] [address], [place] [address]- 4108 Jan, [facility] [address] [place] [address] 84626- 5219 Jan, [facility] [address] [address]- 4570 Jan, [facility] [address], [place] [address]- 1236 Jan, [facility] [address], [place] [address]- 3464 Jan, [facility] [address], [place] [address]- 1038 Jan, [facility] [id number] [place] [address] 62425- 8509 December, [facility] [id number] [place] [address] 37614- 4604 December, [facility] [id number] [place] [address] 960647- 8290 December, [facility] [id number] [place] [address] 32905- 6308 December, [facility] [id number] [place] [address] 57239- 0639 December, Anxiety state, unspecified 300.00 ; Other chronic pain 338.29 ; Diabetes with neurological manifestations, type II or unspecified type , not stated as uncontrolled 250.60 ; Essential hypertension, benign 401.1 ; Compression fracture of thoracic spine, non-traumatic 733.13 ; Wrist fracture, left 814.00 and Fall at home E888.9 [facility] [address] [address]- 3499 December, [facility] [address] [address]- 0514 December, [facility] [address], [place] [address]- 8783 Nov, [facility] [address], [place] [address]- 6590 Nov, [facility] [address], [place] [address]- 5225 Nov, [facility] [address], [place] [address]- 7016 Nov, [facility] [place] [facility] [address] [id number] [place] [address]- 5593 Oct, [facility] [place] [facility] [address] [id number] [place] [address]- 8100 Oct, [facility] [place] [facility] [address] [id number] [place] [address]- 4233 Oct, [facility] [place] [facility] [address] [id number] [place] [address]- 1868 Oct, [facility] [place] [facility] [address] [id number] [place] [address]- 9544 Oct, [facility] [place] [facility] [address] [id number] [place] [address]- 2057 Oct, [facility] [place] [facility] [address] [facility] [id number] [place] [address]- 7428 Oct, [facility] [place] [facility] [address] [facility] [id number] [place] [address]- 5253 Oct, [facility] [place] [facility] [address] [id number] [place] [address]- 0108 Sep, [facility] [place] [facility] [address] [facility] [id number] [place] [address]- 2316 Sep, [facility] [place] [facility] [address] [facility] [id number] [address]- 8324 Sep, [facility] [place] [facility] [address] [facility] [id number] [address]- 0935 Sep, [facility] [place] [facility] [address] [id number] [address]- 3654 Aug, [facility] [place] [facility] [address] [id number] [address]- 3942 Aug, [facility] [place] [facility] [address] [facility] [id number], [place] [address] Aug, [facility] [address] [facility] [id number][place] [address] Aug, [facility] [address] [facility] [id number][place] [address] Aug, [facility] [address] [facility] [id number][place] [id number] Aug, [facility] [address] [facility] [id number][place] [address] Aug, [facility] [address] [facility] [id number][place] [address] Aug, IMMUNIZATIONS No Known Immunizations SOCIAL HISTORY Never Assessed REASON FOR VISIT Refill request PLAN OF CARE VITAL SIGNS MEDICATIONS Unknown [...] Surgical History Neck surgery Surgical History EGD 2015 Hospitalization History Surgery(s) only
--- OUTSIDE RECORDS SUMMARY | 2018-01-14 12:14 | XMS REPORT ---
Author Author LANIE BRIONES [facility] Address [address] [place] [address] Care Team Providers Care Scrap Sawyer Name Role Phone LANIE BRIONES Unavailable PROBLEMS Type Condition ICD9-CM Code PVM52-JP Code Onset Dates Condition Status SNOMED Code Diagnosis Mixed hyperlipidemia E78.2 Active 354091761 Problem Generalized psoriasis L40.1 Active 391035445 Diagnosis Arthritis M19.90 Active 7114709 Problem Major depressive disorder, single episode, unspecified F32.9 Active 15142077 Problem Type 2 diabetes mellitus with unspecified complications E11.8 Active 925451723 Problem Neuropathy G62.9 Active 369294007 Problem Dyspepsia R10.13 Active 997951126 Problem Weight loss, unintentional R63.4 Active 308885371 Problem Type 2 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 Active 71273709 Condition Depressive disorder, not elsewhere classified 311 Active 34400853 Diagnosis Anxiety F41.9 Active 50832491 Diagnosis Gastro-esophageal reflux disease with esophagitis K21.0 Active 537167736 Diagnosis Chronic pain syndrome G89.4 Active 68000535 Problem alf 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.4 Active 077124988 Problem Insomnia, unspecified G47.00 Active 838603564 Problem 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 M79.7 Active 60218575 Diagnosis Essential (primary) hypertension I10 Active 97227828 ALLERGIES No Information ENCOUNTERS Encounter Location Date Diagnosis [facility] [address] [address] Nov, [facility] [id number] [place] [address] 12828- 5691 Nov, [facility] [address] [address] Oct, Major depressive disorder, single episode, unspecified F32.9 [facility] [id number] [place] [address] 94684- 5755 Oct, Chronic pain syndrome G89.4 and Anxiety F41.9 [facility] [id number] [place] [address] 04609- 5396 Oct, [facility] [id number] [place] [address] 32735- 1752 Sep, Major depressive disorder, single episode, unspecified F32.9 and Chronic pain syndrome G89.4 [facility] [id number] [place] [address] 17821- 8973 Sep, [facility] [id number] [place] [address] 72662- 0431 Aug, Chronic pain syndrome G89.4 and Anxiety F41.9 [facility] [id number] [place] [address] 67862- 5781 Aug, Chronic pain syndrome G89.4 and Anxiety F41.9 [facility] [id number] [place] [address] 73050- 5151 Aug, [facility] [id number] [place] [address] 08996- 5089 Aug, Anxiety F41.9 and Chronic pain syndrome G89.4 [facility] [id number] [place] [address] 09459- 4746 Aug, [facility] [id number] [place] [address] 41851- 9073 Aug, Anxiety F41.9 ; Chronic pain syndrome G89.4 and Insomnia, unspecified G47.00 [facility] [id number] [place] [address] 64298- 2725 Jul, Chronic pain syndrome G89.4 ; Insomnia, unspecified G47.00 ; Type 2 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 ; [employer] 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.4 ; Anxiety F41.9 and Essential (primary) hypertension I10 [facility] [address], [place] [address] 7947 Jul, [facility] [address], [place] [address] 4515 Jul, [facility] [address], [place] [address] 9861 Jul, [facility] [id number] [place] [address] 597315- 0521 Jul, Encounter for immunization Z23 [facility] [id number] [place] [address] 35056- 0560 Jun, [facility] [id number] [place] [address] 52068- 4877 Jun, [facility] [id number] [place] [address] 80379- 5564 May, [facility] [id number] [place] [address] 72263- 7309 May, [facility] [address], [place] [address] 4956 May, [facility] [address] [address] 5564 Apr, Chronic pain syndrome G89.4 ; Anxiety F41.9 and Dyspepsia R10.13 [facility] [address], [place] [address] 8118 Apr, [facility] [address], [place] [address]- 5226 Mar, Chronic pain syndrome G89.4 and Anxiety F41.9 [facility] [address], [place] [address]- 2979 Mar, Chronic pain syndrome G89.4 [facility] [address], [place] [address] 3462 Feb, Chronic pain syndrome G89.4 and Anxiety F41.9 [facility] [address] [facility] [id number] [address] 6215 Feb, [facility] [address] [facility] [id number] [place] [address] 50251- 7058 Feb, Systolic murmur R01.1 [facility] [address] [facility] [id number] [address] 8326 Feb, [facility] [address] [facility] [id number] [place] [address] 85788- 8666 Feb, [facility] [address] [facility] [id number] [place] [address] 00698- 2401 Feb, Chronic pain syndrome G89.4 [facility] [id number] [place] [address] 82413- 8902 Jan, [facility] [id number] [place] [address] 03969- 3061 Jan, Heart murmur on physical examination R01.1 ; Anxiety F41.9 and Chronic pain syndrome G89.4 [facility] [address] [facility] [id number] [place] [address] 06858- 5466 Jan, Anxiety F41.9 and Chronic pain syndrome G89.4 [facility] [id number] [place] [address] 79623- 7541 Jan, [facility] [id number] [place] [address] 22558- 5680 Jan, Other malaise R53.81 [facility] [address] [facility] [id number], [place] [address]- 3710 Jan, [facility] [id number] [place] [address] 61610- 5700 Jan, [facility] [id number], [place] [address]- 0104 Jan, Chronic pain syndrome G89.4 [facility] [id number] [place] [address] 73629- 2554 December, Other malaise R53.81 [facility] [address] 71154- 9564 December, Type 2 diabetes mellitus with unspecified complications E11.8 [facility] [id number] [place] [address] 97012- 7132 December, Anxiety F41.9 and Chronic pain syndrome G89.4 [facility] [address] 98702- 7613 December, Type 2 diabetes mellitus with unspecified complications E11.8 ; Anxiety F41.9 ; [employer] 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.4 and Chronic pain syndrome G89.4 [facility] [id number] [place] [address] 46881- 0718 Nov, [facility] [address] 43963- 6644 Nov, [facility] [address] 75209- 1705 Nov, Anxiety F41.9 and Chronic pain syndrome G89.4 [facility] [id number] [place] [address] 77529 -6794 Nov, Type 2 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 and Acute non-recurrent pansinusitis J01.40 [facility] [id number] [place] [address] 85378- 0124 Nov, Type 2 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 [facility] [id number] [place] [address] 76825- 7600 Nov, [place] [address] 18205- 9485 Oct, Chronic pain syndrome G89.4 [facility] [id number] [place] [address] 23004- 2593 Oct, Chronic pain syndrome G89.4 and Anxiety F41.9 [facility] [id number] [place] [address] 29607- 1581 Oct, Chronic pain syndrome G89.4 [facility] [id number] [place] [address] 34288- 1989 Sep, Anxiety F41.9 and Chronic pain syndrome G89.4 [facility] [facility] [address] 80794- 4906 Aug, Chronic pain syndrome G89.4 ; Essential (primary) hypertension I10 ; Dyspepsia R10.13 ; Neuropathy G62.9 ; Mixed hyperlipidemia E78.2 ; Anxiety F41.9 ; Insomnia, unspecified G47.00 and Weight loss, unintentional R63.4 [facility] [id number] [place] [address] 70281- 5472 Aug, Chronic pain syndrome G89.4 [facility] [id number] [place] [address] 08668- 6979 Aug, Type 2 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 ; Chronic pain syndrome G89.4 ; alf 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.4 and Wound, open, forearm, right, initial encounter S51.801A [facility] [id number] [place] [address] 63762- 3349 Jul, [facility] [id number] [place] [address] 17243- 9632 Jun, [facility] [id number] [place] [address] 86938- 2478 Jun, [facility] [facility] [address] 21601- 2962 Jun, Chronic pain syndrome G89.4 ; Type 2 diabetes mellitus with unspecified complications E11.8 ; alf 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.4 ; Essential (primary) hypertension I10 ; Dyspepsia R10.13 ; Neuropathy G62.9 ; Mixed hyperlipidemia E78.2 ; Anxiety F41.9 ; Insomnia, unspecified G47.00 and Alteration in mobility due to weakness R53.1 [facility] [id number], [place] [address]- 1778 May, [facility] [id number] [place] [address] 31857- 7594 May, [facility] [id number] [place] [address] 02069- 5815 May, [facility] [id number] [place] [address] 68025- 7668 May, [facility] [id number] [place] [address] 55501- 8469 Apr, [facility] [id number] [place] [address] 93186- 2192 Apr, [facility] [id number] [place] [address] 14699- 2789 Apr, [facility] [id number] [place] [address] 52888- 6990 Mar, [facility] [id number] [place] [address] 61622- 0059 Mar, Chronic pain syndrome G89.4 ; Type 2 diabetes mellitus with unspecified complications E11.8 ; alf 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.4 ; Essential (primary) hypertension I10 ; Dyspepsia R10.13 ; Neuropathy G62.9 ; Mixed hyperlipidemia E78.2 ; Anxiety F41.9 and Insomnia, unspecified G47.00 [facility] [id number] [place] [address] 74015- 6454 Mar, [facility] [id number] [place] [address] 59981- 3590 Mar, [facility] [id number] [place] [address] 69166- 5875 Feb, [facility] [id number] [place] [address] 54792- 6682 Feb, Chronic pain syndrome G89.4 ; Type 2 diabetes mellitus with unspecified complications E11.8 ; [employer] 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.4 ; Essential (primary) hypertension I10 ; Dyspepsia R10.13 ; Neuropathy G62.9 ; Mixed hyperlipidemia E78.2 ; Anxiety F41.9 and Insomnia, unspecified G47.00 [facility] [id number] [place] [address] 87839- 6083 Jan, [place] [address] 05979- 8560 Jan, Chronic pain syndrome G89.4 ; Type 2 diabetes mellitus with unspecified complications E11.8 ; [employer] 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.4 ; Essential (primary) hypertension I10 ; Dyspepsia R10.13 ; Neuropathy G62.9 ; Mixed hyperlipidemia E78.2 ; Anxiety F41.9 and Insomnia, unspecified G47.00 [facility] [place] [id number] [place] [address] 52277- 7426 Jan, [facility] [id number] [place] [address] 42691- 0077 Jan, [facility] [id number] [place] [address] 39257- 3673 December, Chronic pain syndrome G89.4 ; Type 2 diabetes mellitus with unspecified complications E11.8 ; alf 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.4 ; Essential (primary) hypertension I10 ; Dyspepsia R10.13 ; Neuropathy G62.9 ; Mixed hyperlipidemia E78.2 ; Anxiety F41.9 and Insomnia, unspecified G47.00 [facility] [place] [id number] [place] [address] 19411- 4893 December, [facility] [place] [id number] [place] [address] 91205- 0349 Nov, [facility] [id number] [place] [address] 43816- 2657 Nov, [facility] [id number] [place] [address] 42228- 1016 Oct, Chronic pain syndrome G89.4 and Skin infection L08.9 [facility] [id number] [place] [address] 05955- 2010 Oct, [facility] [id number] [place] [address] 04248- 9907 Oct, [facility] [id number] [place] [address] 64999- 3681 Oct, [facility] [id number] [place] [address] 49824- 7548 Oct, [facility] [id number] [place] [address] 23678- 4432 Oct, [facility] [id number] [place] [address] 49753- 4841 Oct, [facility] [id number] [place] [address] 61470- 3632 Oct, Chronic pain syndrome G89.4 ; Type 2 diabetes mellitus with unspecified complications E11.8 ; alf 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.4 ; Essential (primary) hypertension I10 ; Dyspepsia R10.13 ; Neuropathy G62.9 and Mixed hyperlipidemia E78.2 [facility] [address], [place] [address]- 5410 Oct, [facility] [id number] [place] [address] 53624- 8631 Sep, [facility] [id number] [place] [address] 65182- 3537 Sep, [facility] [id number] [place] [address] 92711- 2350 Sep, Chronic pain syndrome G89.4 [facility] [address], [place] [address]- 9737 Aug, [facility] [id number] [place] [address] 46833- 4049 Aug, Chronic pain syndrome G89.4 ; Type 2 diabetes mellitus with unspecified complications E11.8 ; alf 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.4 ; Essential (primary) hypertension I10 and Dyspepsia R10.13 [facility] [place] [id number] [place] [address] 89010- 4527 Aug, Rash R21 [place] [address] 62912- 3262 Aug, [facility] [id number] [place] [address] 00364- 0570 Aug, [place] [id number] [place] [address] 74072- 9862 Aug, [place] [id number] [place] [address] 04162- 8700 Aug, Insomnia, unspecified G47.00 ; Chronic pain syndrome G89.4 and Anxiety F41.9 [place] [id number] [place] [address] 55870- 0570 Aug, Depression, major, recurrent, in partial remission F33.41 and Anxiety disorder, unspecified F41.9 [place] [id number] [place] [address] 74359- 1237 Jul, [place] [id number] [place] [address] 51824- 9918 Jul, Chronic pain syndrome G89.4 ; Type 2 diabetes mellitus with unspecified complications E11.8 ; Gastro-esophageal reflux disease with esophagitis K21.0 ; [employer] 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.4 ; Mixed hyperlipidemia E78.2 ; Essential (primary) hypertension I10 ; Otalgia of both ears H92.03 and Alopecia L65.[address] [place] [address] 22939- 9110 Jul, [place] [id number] [place] [address] 49012- 5050 Jul, [facility] [id number] [place] [address] 24574- 3309 Jul, Anxiety F41.9 and Depressive disorder, not elsewhere classified 311 [facility] [id number] [place] [address] 03347- 9536 Jul, [facility] [id number] [place] [address] 41040- 4495 Jul, Insomnia, unspecified G47.00 ; Anxiety disorder, unspecified F41.9 and Major depressive disorder, single episode, unspecified F32.9 [place] [address] 00641- 2748 Jun, [facility] [address] 68081- 4899 Jun, Insomnia, unspecified G47.00 ; Generalized psoriasis L40.1 and Chronic pain syndrome G89.4 [facility] [id number] [place] [address] 63526- 4760 Jun, [facility] [address] 10960- 4732 Jun, [facility] [id number] [place] [address] 58508- 4412 Jun, Depressive disorder, not elsewhere classified 311 and Anxiety F41.9 [facility] [id number] [place] [address] 88716- 4275 Jun, Generalized psoriasis L40.1 [facility] [id number] [place] [address] 19166 -2991 Jun, Dermatitis L30.9 [facility] [address] 62220- 8524 May, Insomnia, unspecified G47.00 ; Chronic pain syndrome G89.4 and GERD (gastroesophageal reflux disease) K21.9 [facility] [address] 56690- 9603 May, Insomnia, unspecified G47.00 ; Anxiety disorder, unspecified F41.9 and Major depressive disorder, single episode, unspecified F32.9 [place] [address] 11683- 8453 May, Depressive disorder, not elsewhere classified 311 and Anxiety F41.[address] 06195- 8622 May, [address] 23591- 0911 May, Insomnia, unspecified G47.00 and Encounter for immunization Z23 [address] 54414- 7815 May, [address] 96087- 9342 May, Chronic pain syndrome G89.4 ; Mixed hyperlipidemia E78.2 ; Type 2 diabetes mellitus with unspecified complications E11.8 ; Essential ( primary) hypertension I10 ; Anxiety F41.9 ; Insomnia, unspecified G47.00 ; 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 M79.7 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 [place] [id number] [place] [address] 38951- 8943 Apr, [address] 68946- 9364 Apr, Dyspepsia 536.8 and Insomnia 780.[address] 90258- 1182 Apr, Other malaise and fatigue 780.[address] 09968- 6621 Apr, [address] 78334- 9572 Mar, Diabetes with neurological manifestations, type II or unspecified type, not stated as uncontrolled 250.60 ; Other chronic pain 338.29 ; Essential hypertension, benign 401.1 ; Anxiety state, unspecified 300.00 ; Insomnia 780.52 and Hyperlipidemia 272.4 [facility] [address], [place] [address]- 2962 Mar, [facility] [address] [address]- 7062 Feb, [facility] [id number] [place] [address] 76240- 0464 Feb, [facility] [id number] [address]- 9724 Feb, [facility] [id number] [place] [address] 31109- 1440 Feb, [facility] [id number] [place] [address] 37943- 3094 Feb, [facility] [id number] [place] [address] 01839- 9116 Jan, Depressive disorder, not elsewhere classified 311 and Dyssomnia 780.56 [facility] [address] [address]- 6469 Jan, Diabetes with neurological manifestations, type II or unspecified type, not stated as uncontrolled 250.60 ; Other chronic pain 338.29 ; Essential hypertension, benign 401.1 ; Anxiety state, unspecified 300.00 ; Insomnia 780.52 and Hyperlipidemia 272.4 [facility] [address] [address]- 2816 Jan, [facility] [address] [address]- 3633 Jan, [facility] [id number] [address]- 7822 Jan, [facility] [address] [place] [address]- 8649 Jan, [facility] [address] [place] [address]- 3468 Jan, [facility] [address] [address]- 6141 Jan, [facility] [address] 1482 December, [facility] [id number] [place] [address] December, [facility] [id number] [place] [address] December, [facility] [id number] [place] [address] December, [facility] [id number] [place] [address] December, Anxiety state, unspecified 300.00 ; Other chronic pain 338.29 ; Diabetes with neurological manifestations, type II or unspecified type , not stated as uncontrolled 250.60 ; Essential hypertension, benign 401.1 ; Compression fracture of thoracic spine, non-traumatic 733.13 ; Wrist fracture, left 814.00 and Fall at home E888.9 [facility] [id number], [place] [address] December, [facility] [id number] [place] [address] December, [facility] [id number], [place] [address] Nov, [facility] [id number] [place] [address] Nov, [facility] [id number] [place] [address] Nov, [facility] [id number], [place] [address] Nov, [facility] [id number], [place] [address] Oct, [facility] [place] [facility] [address] [id number] [place] [address] Oct, [facility] [place] [facility] [address] [id number] [place] [address] Oct, [facility] [place] [facility] [address] [id number] [place] [address] Oct, [facility] [place] [facility] [address] [id number] [place] [address] Oct, [facility] [place] [facility] [address] [id number] [place] [address] Oct, [facility] [place] [facility] [address] [id number] [place] [address] Oct, [facility] [place] [facility] [address] [id number] [place] [address] Oct, [facility] [place] [facility] [address] [id number] [place] [address] Sep, [facility] [place] [facility] [address] [id number] [place] [address] Sep, [facility] [place] [facility] [address] [id number] [place] [address] Sep, [facility] [place] [facility] [address] [id number] [place] [address] Sep, [facility] [place] [facility] [address] [id number] [place] [address] Aug, [facility] [place] [facility] [address] [id number] [place] [address] Aug, [facility] [place] [facility] [address] [id number] [place] [address] Aug, [facility] [place] [facility] [address] [id number] [place] [address] Aug, [facility] [place] [facility] [address] [id number] [place] [address] Aug, [facility] [address] [facility] [id number] [place] [address] Aug, [facility] [address] [facility] [id number] [place] [address] Aug, [facility] [address] [facility] [id number] [place] [address] Aug, IMMUNIZATIONS No Known Immunizations SOCIAL HISTORY Never Assessed REASON FOR VISIT Shoulder pain PLAN OF CARE VITAL SIGNS MEDICATIONS Unknown [...]
--- OUTSIDE RECORDS SUMMARY | 2018-01-14 12:14 | XMS REPORT ---
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 Name Role Phone LANIE BRIONES Unavailable PROBLEMS Type Condition ICD9-CM Code [id number] Code Onset Dates Condition Status SNOMED Code Diagnosis Chronic pain syndrome G89.4 Active 51479354 Diagnosis Mixed hyperlipidemia E78.2 Active 429659355 Problem Insomnia, unspecified G47.00 Active 411476101 Diagnosis Anxiety F41.9 Active 78718466 Problem retirement 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.4 Active 819958674 Problem 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 M79.7 Active 14839485 Diagnosis Gastro-esophageal reflux disease with esophagitis K21.0 Active 035764051 Problem Major depressive disorder, single episode, unspecified F32.9 Active 27050290 Problem Type 2 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 Active 60319578 Diagnosis Essential (primary) hypertension I10 Active 59828825 Diagnosis Arthritis M19.90 Active 9118893 Problem Neuropathy G62.9 Active 189115116 Problem Generalized psoriasis L40.1 Active 978694982 ALLERGIES No Information ENCOUNTERS Encounter Location Date Diagnosis [facility] [id number] [place] [address] 48790- 2432 December, Chronic pain syndrome G89.4 and Opioid overdose, accidental or unintentional, initial encounter T40.2X1A [facility] [id number] [place] [address] 80421- 7311 December, [facility] [address] 95169- 9434 Nov, [facility] [id number] [place] [address] 31485- 0088 Nov, [facility] [address] 04121- 2919 Nov, Type 2 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 ; Essential (primary) hypertension I10 ; Chronic pain syndrome G89.4 and Arthritis M19.90 [facility] [id number] [place] [address] 50342- 6677 Nov, Major depressive disorder, single episode, unspecified F32.9 and Chronic pain syndrome G89.4 [facility] [address] 53933- 2072 Nov, Chronic pain syndrome G89.4 [facility] [address] 09292- 7641 Oct, Chronic pain syndrome G89.4 and Anxiety F41.9 [facility] [id number] [place] [address] 06134- 6316 Oct, Major depressive disorder, single episode, unspecified F32.9 [facility] [address] 36218- 6802 Oct, Chronic pain syndrome G89.4 and Anxiety F41.9 [facility] [address] 79823- 2966 Oct, [facility] [id number] [place] [address] 38706- 7735 Sep, Major depressive disorder, single episode, unspecified F32.9 and Chronic pain syndrome G89.4 [facility] [id number] [place] [address] 79234- 9061 Sep, [facility] [id number] [place] [address] 60853- 2398 Aug, Chronic pain syndrome G89.4 and Anxiety F41.9 [facility] [id number] [place] [address] 98997- 5031 Aug, Chronic pain syndrome G89.4 and Anxiety F41.9 [facility] [address] 90455- 6177 Aug, [facility] [id number] [place] [address] 72422- 1312 Aug, Anxiety F41.9 and Chronic pain syndrome G89.4 [facility] [id number] [place] [address] 33381- 6892 Aug, [facility] [id number] [place] [address] 90745- 6143 Aug, Anxiety F41.9 ; Chronic pain syndrome G89.4 and Insomnia, unspecified G47.00 [facility] [id number] [place] [address] 30449- 0027 Jul, Chronic pain syndrome G89.4 ; Insomnia, unspecified G47.00 ; Type 2 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 ; retirement 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.4 ; Anxiety F41.9 and Essential (primary) hypertension I10 [facility] [id number] [place] [address] 68188- 7560 Jul, [facility] [id number] [place] [address] 03502- 9767 Jul, [facility] [id number] [place] [address] 56410- 0745 Jul, [facility] [id number] [place] [address] 53358- 6692 Jul, Encounter for immunization Z23 [facility] [id number] [place] [address] 77046- 2194 Jun, [facility] [id number] [place] [address] 42369- 8903 Jun, [facility] [id number] [place] [address] 44360- 6173 May, [facility] [id number] [place] [address] 36132- 8171 May, [facility] [address] [address]- 5638 May, [facility] [id number] [place] [address] 63351- 8159 Apr, Chronic pain syndrome G89.4 ; Anxiety F41.9 and Dyspepsia R10.13 [facility] [id number] [place] [address] 12980- 0882 Apr, [facility] [id number] [place] [address] 08679- 5731 Mar, Chronic pain syndrome G89.4 and Anxiety F41.9 [facility] [id number] [place] [address] 02140- 2661 Mar, Chronic pain syndrome G89.4 [facility] [id number] [place] [address] 15587- 8949 Feb, Chronic pain syndrome G89.4 and Anxiety F41.9 [facility] [id number] [place] [address] 46295- 8113 Feb, [facility] [id number] [place] [address] 73175- 9198 Feb, Systolic murmur R01.1 [facility] [id number] [place] [address] 25201- 9959 Feb, [facility] [id number] [place] [address] 91382- 8602 Feb, [facility] [id number] [place] [address] 94007- 0922 Feb, Chronic pain syndrome G89.4 [facility] [address] [place] [address] 43007- 7512 Jan, [facility] [address] [address]- 7910 Jan, Heart murmur on physical examination R01.1 ; Anxiety F41.9 and Chronic pain syndrome G89.4 [facility] [address] [address]- 2188 Jan, Anxiety F41.9 and Chronic pain syndrome G89.4 [facility] [id number] [address]- 2657 Jan, [facility] [address] [place] [address] 56096- 1397 Jan, Other malaise R53.81 [facility] [id number] [place] [address] 63736- 8282 Jan, [facility] [id number] [place] [address] 66832- 0317 Jan, [facility] [id number] [place] [address] 76822- 8241 Jan, Chronic pain syndrome G89.4 [facility] [id number] [place] [address] 12900- 8511 December, Other malaise R53.81 [facility] [address] [address]- 7101 December, Type 2 diabetes mellitus with unspecified complications E11.8 [facility] [address] [place] [address] 93634- 8324 December, Anxiety F41.9 and Chronic pain syndrome G89.4 [facility] [address] [address]- 4018 December, Type 2 diabetes mellitus with unspecified complications E11.8 ; Anxiety F41.9 ; 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 and Chronic pain syndrome G89.4 [facility] [address] [address]- 2126 Nov, [facility] [address] [address]- 5435 Nov, [facility] [id number] [place] [address] 59275- 3104 Nov, Anxiety F41.9 and Chronic pain syndrome G89.4 [facility] [id number] [place] [address] 99079 -4821 Nov, Type 2 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 and Acute non-recurrent pansinusitis J01.40 [facility] [id number] [place] [address] 36549- 5633 Nov, Type 2 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 [facility] [id number] [place] [address] 80629- 3760 Nov, [place] [address] 07632- 5933 Oct, Chronic pain syndrome G89.4 [facility] [id number] [place] [address] 94469- 6502 Oct, Chronic pain syndrome G89.4 and Anxiety F41.9 [facility] [id number] [place] [address] 60148- 8468 Oct, Chronic pain syndrome G89.4 [facility] [id number] [place] [address] 28560- 3796 Sep, Anxiety F41.9 and Chronic pain syndrome G89.4 [facility] [id number] [place] [address] 71360- 6594 Aug, Chronic pain syndrome G89.4 ; Essential (primary) hypertension I10 ; Dyspepsia R10.13 ; Neuropathy G62.9 ; Mixed hyperlipidemia E78.2 ; Anxiety F41.9 ; Insomnia, unspecified G47.00 and Weight loss, unintentional R63.4 [facility] [id number] [place] [address] 41542- 2549 Aug, Chronic pain syndrome G89.4 [facility] [id number] [place] [address] 58759- 3529 Aug, Type 2 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 ; Chronic pain syndrome G89.4 ; 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 and Wound, open, forearm, right, initial encounter S51.801A [facility] [address] 73680- 3510 Jul, [facility] [address] 80768- 0908 Jun, [facility] [address] 93561- 2789 Jun, [place] [facility] [address] 70758- 5778 Jun, Chronic pain syndrome G89.4 ; Type 2 diabetes mellitus with unspecified complications E11.8 ; 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 ; Essential (primary) hypertension I10 ; Dyspepsia R10.13 ; Neuropathy G62.9 ; Mixed hyperlipidemia E78.2 ; Anxiety F41.9 ; Insomnia, unspecified G47.00 and Alteration in mobility due to weakness R53.1 [facility] [address] 07475- 7889 May, [facility] [address] 52933- 8683 May, [facility] [address] 33798- 6258 May, [facility] [id number] [place] [address] 04695- 5707 May, [facility] [id number] [place] [address] 98683- 0333 Apr, [facility] [address] 61406- 8198 Apr, [facility] [id number] [place] [address] 33971- 4499 Apr, [place] [address] 81526- 6505 Mar, [facility] [id number] [place] [address] 17766- 9111 Mar, Chronic pain syndrome G89.4 ; Type 2 diabetes mellitus with unspecified complications E11.8 ; 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 ; Essential (primary) hypertension I10 ; Dyspepsia R10.13 ; Neuropathy G62.9 ; Mixed hyperlipidemia E78.2 ; Anxiety F41.9 and Insomnia, unspecified G47.00 [facility] [address] 07221- 3622 Mar, [facility] [address] 84468- 9662 Mar, [facility] [address] 38686- 7098 Feb, [facility] [address] 88006- 9402 Feb, Chronic pain syndrome G89.4 ; Type 2 diabetes mellitus with unspecified complications E11.8 ; 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 ; Essential (primary) hypertension I10 ; Dyspepsia R10.13 ; Neuropathy G62.9 ; Mixed hyperlipidemia E78.2 ; Anxiety F41.9 and Insomnia, unspecified G47.00 [facility] [id number] [place] [address] 00338- 0333 Jan, [place] [id number] [place] [address] 45240- 3798 Jan, Chronic pain syndrome G89.4 ; Type 2 diabetes mellitus with unspecified complications E11.8 ; 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9 ; Mixed hyperlipidemia E78.2 ; Anxiety F41.9 and Insomnia, unspecified G47.00 [facility] [address] [address]- 0273 December, [facility] [id number] [place] [address] 84939- 2223 Nov, [facility] [id number] [place] [address] 54144- 6706 Nov, [facility] [id number] [place] [address] 02849- 4467 Oct, Chronic pain syndrome G89.4 and Skin infection L08.9 [facility] [address] [address]- 0846 Oct, [facility] [id number] [place] [address] 76992- 8199 Oct, [facility] [address], [place] [address]- 5565 Oct, [facility] [address] [address]- 6288 Oct, [facility] [address] [address]- 4411 Oct, [facility] [id number] [place] [address] 01253- 8635 Oct, [facility] [address], [place] [address]- 6461 Oct, Chronic pain syndrome G89.4 ; Type 2 diabetes mellitus with unspecified complications E11.8 ; retirement 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.4 ; Essential (primary) hypertension I10 ; Dyspepsia R10.13 ; Neuropathy G62.9 and Mixed hyperlipidemia E78.2 [facility] [id number] [place] [address] 24190- 5231 Oct, [place] [facility] [id number] [place] [address] 53065- 4605 Sep, [place] [facility] [address] 62515- 3686 Sep, [place] [address] 38461- 6927 Sep, Chronic pain syndrome G89.4 [facility] [id number] [place] [address] 99423- 8009 Aug, [place] [address] 28659- 8242 Aug, Chronic pain syndrome G89.4 ; Type 2 diabetes mellitus with unspecified complications E11.8 ; retirement 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.4 ; Essential (primary) hypertension I10 and Dyspepsia R10.13 [facility] [id number] [place] [address] 92600- 9567 Aug, Rash R21 [facility] [id number] [place] [address] 09857- 2793 Aug, [place] [id number] [place] [address] 19479- 4653 Aug, [facility] [id number] [place] [address] 25077- 4490 Aug, [facility] [id number] [place] [address] 18361- 7877 Aug, Insomnia, unspecified G47.00 ; Chronic pain syndrome G89.4 and Anxiety F41.9 [facility] [address] 88529- 9906 Aug, Depression, major, recurrent, in partial remission F33.41 and Anxiety disorder, unspecified F41.9 [facility] [address] 17680- 3869 Jul, [facility] [address] 76496- 5176 Jul, Chronic pain syndrome G89.4 ; Type 2 diabetes mellitus with unspecified complications E11.8 ; Gastro-esophageal reflux disease with esophagitis K21.0 ; 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 ; Mixed hyperlipidemia E78.2 ; Essential (primary) hypertension I10 ; Otalgia of both ears H92.03 and Alopecia L65.9 [facility] [address] 06293- 1880 Jul, [place] [address] 49582- 2405 Jul, [place] [address] 86697- 2024 Jul, Anxiety F41.9 and Depressive disorder, not elsewhere classified [address] 75202- 0112 Jul, [place] [facility] [address] 50017- 4502 Jul, Insomnia, unspecified G47.00 ; Anxiety disorder, unspecified F41.9 and Major depressive disorder, single episode, unspecified F32.9 [facility] [address] 96370- 6002 Jun, [address] 80940- 5979 Jun, Insomnia, unspecified G47.00 ; Generalized psoriasis L40.1 and Chronic pain syndrome G89.[address] 62971- 8284 Jun, [place] [id number] [place] [address] 57264- 8159 Jun, [facility] [address] 05486- 1784 Jun, Depressive disorder, not elsewhere classified 311 and Anxiety F41.9 [facility] [address] 72286- 5023 Jun, Generalized psoriasis L40.1 [facility] [address] 12235 -7634 Jun, Dermatitis L30.9 [place] [facility] [address] 23104- 6506 May, Insomnia, unspecified G47.00 ; Chronic pain syndrome G89.4 and GERD (gastroesophageal reflux disease) K21.9 [place] [address] 16969- 9862 May, Insomnia, unspecified G47.00 ; Anxiety disorder, unspecified F41.9 and Major depressive disorder, single episode, unspecified F32.9 [facility] [address] 59876- 9474 May, Depressive disorder, not elsewhere classified 311 and Anxiety F41.9 [facility] [id number] [place] [address] 52640- 9481 May, [place] [facility] [address] 69577- 2739 May, Insomnia, unspecified G47.00 and Encounter for immunization Z23 [facility] [address] 32780- 1232 May, [place] [facility] [address] 24485- 5358 May, Chronic pain syndrome G89.4 ; Mixed hyperlipidemia E78.2 ; Type 2 diabetes mellitus with unspecified complications E11.8 ; Essential ( primary) hypertension I10 ; Anxiety F41.9 ; Insomnia, unspecified G47.00 ; 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 M79.7 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 [facility] [id number] [place] [address] 31187- 8681 Apr, [facility] [id number] [place] [address] 51450- 7921 Apr, Dyspepsia 536.8 and Insomnia 780.52 [facility] [address] 59870- 3347 Apr, Other malaise and fatigue 780.79 [facility] [id number] [place] [address] 78631- 8395 Apr, [facility] [id number] [place] [address] 27433- 5880 Mar, Diabetes with neurological manifestations, type II or unspecified type, not stated as uncontrolled 250.60 ; Other chronic pain 338.29 ; Essential hypertension, benign 401.1 ; Anxiety state, unspecified 300.00 ; Insomnia 780.52 and Hyperlipidemia 272.4 [facility] [id number] [place] [address] 22774- 3261 Mar, [facility] [id number] [place] [address] 96605- 1851 Feb, [facility] [id number] [place] [address] 17440- 5490 Feb, [facility] [id number] [place] [address] 22693- 7048 Feb, [facility] [id number] [place] [address] 12965- 1319 Feb, [facility] [id number] [place] [address] 04595- 2182 Feb, [facility] [id number] [place] [address] 87964- 4661 Jan, Depressive disorder, not elsewhere classified 311 and Dyssomnia 780.56 [facility] [address], [place] [address]- 8488 Jan, Diabetes with neurological manifestations, type II or unspecified type, not stated as uncontrolled 250.60 ; Other chronic pain 338.29 ; Essential hypertension, benign 401.1 ; Anxiety state, unspecified 300.00 ; Insomnia 780.52 and Hyperlipidemia 272.4 [facility] [address] [address]- 3601 Jan, [facility] [address] [address]- 6137 Jan, [facility] [address], [place] [address]- 4755 Jan, [facility] [id number] [address]- 0461 Jan, [facility] [address], [place] [address]- 2049 Jan, [facility] [address], [place] [address]- 2421 Jan, [facility] [address], [place] [address]- 9221 December, [facility] [address], [place] [address]- 7391 December, [facility] [address], [place] [address]- 5051 December, [facility] [address], [place] [address]- 3324 December, [facility] [id number] [address]402 December, Anxiety state, unspecified 300.00 ; Other chronic pain 338.29 ; Diabetes with neurological manifestations, type II or unspecified type , not stated as uncontrolled 250.60 ; Essential hypertension, benign 401.1 ; Compression fracture of thoracic spine, non-traumatic 733.13 ; Wrist fracture, left 814.00 and Fall at home E888.9 [facility] [place] [facility] [address] [id number] [place] [address]- 3655 December, [facility] [place] [facility] [address] [facility] [id number] [place] [address]- 1556 December, [facility] [place] [facility] [address] [facility] [id number] [place] [address]- 9096 Nov, [facility] [place] [facility] [address] [id number] [place] [address]- 0139 Nov, [facility] [place] [facility] [address] [id number] [place] [address]- 2065 Nov, [facility] [place] [facility] [address] [facility] [id number] [place] [address]- 3158 Nov, [facility] [place] [facility] [address] [facility] [id number] [place] [address]- 6099 Oct, [facility] [place] [facility] [address] [id number] [place] [address]- 5140 Oct, [facility] [place] [facility] [address] [id number] [place] [address]- 7300 Oct, [facility] [place] [facility] [address] [facility] [id number] [place] [address]- 7822 Oct, [facility] [place] [facility] [address] [facility] [id number], [place] [address] Oct, [facility] [place] [facility] [address] [id number], [place] [address] Oct, [facility] [place] [facility] [address] [id number] [place] [address] Oct, [facility] [place] [facility] [address] [facility] [id number], [place] [address] Oct, [facility] [place] [facility] [address] [facility] [id number], [place] [address] Sep, [facility] [place] [facility] [address] [id number], [place] [address] Sep, [facility] [address] [id number], [place] [address] Sep, [facility] [id number], [place] [address] Sep, [facility] [id number], [place] [address] Aug, [facility] [id number], [place] [address] Aug, [facility] [id number], [place] [address] Aug, [facility] [id number], [place] [address] Aug, [facility] [id number] [place] [address] Aug, [facility] [id number], [place] [address] Aug, [facility] [id number], [place] [address] Aug, [facility] [address] [id number], [place] [address] Aug, IMMUNIZATIONS No Known Immunizations SOCIAL HISTORY Never Assessed REASON FOR VISIT Requests return call PLAN OF CARE VITAL SIGNS MEDICATIONS No Known Medications RESULTS No Results PROCEDURES No Known procedures INSTRUCTIONS MEDICATIONS ADMINISTERED No Known Medications MEDICAL (GENERAL) HISTORY Type Description Date Medical History OPIOID OVERDOSE NOVEMBER 2017 REQUIRING ER VISIT AND NARCAN ADMINISTRATION Medical History Anxiety state, unspecified Medical History [...] History Diabetic Retinopathy [place] Ret[facility] 09/09/17 Medical History Weight loss, unintentional Surgical History cholecystectomy 2014 Surgical History shoulder arthroscopy, repaired torn rotator cuff on both shoulders 1977 Surgical History section 1979 Surgical History Neck surgery Surgical History EGD 2014 Hospitalization History Surgery(s) only Hospitalization History Hosptial after OD 11/28/17
--- OUTSIDE RECORDS SUMMARY | 2018-01-14 12:15 | XMS REPORT ---
Author Author Gilbert TYRA Organization [facility] Address [address] [place] [address] Care Team Providers Care Workforce Management Consultant Name Role Phone abdonChris TYRA Unavailable PROBLEMS Type Condition ICD9-CM Code VBN74-VM Code Onset Dates Condition Status SNOMED Code Diagnosis Mixed hyperlipidemia E78.2 Active 383647548 Problem Generalized psoriasis L40.1 Active 511002669 Diagnosis Arthritis M19.90 Active 2315435 Problem Major depressive disorder, single episode, unspecified F32.9 Active 20719723 Problem Type 2 diabetes mellitus with unspecified complications E11.8 Active 732809311 Problem Neuropathy G62.9 Active 956998653 Problem Dyspepsia R10.13 Active 503505831 Problem Weight loss, unintentional R63.4 Active 305870460 Problem Type 2 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 Active 01874615 Condition Depressive disorder, not elsewhere classified 311 Active 20278107 Diagnosis Anxiety F41.9 Active 30081888 Diagnosis Gastro-esophageal reflux disease with esophagitis K21.0 Active 731305463 Diagnosis Chronic pain syndrome G89.4 Active 61190500 Problem 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 688686988 Problem Insomnia, unspecified G47.00 Active 465631410 Problem 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 M79.7 Active 37494342 Diagnosis Essential (primary) hypertension I10 Active 55867811 ALLERGIES No Information ENCOUNTERS Encounter Location Date Diagnosis [facility] [id number], [place] [address] Nov, [facility] [id number] [place] [address] 28741- 4836 Nov, [facility] [id number] [address] 97[address] Oct, Chronic pain syndrome G89.4 and Anxiety F41.9 [address], [place] [address] Oct, Major depressive disorder, single episode, unspecified F32.9 [facility] [id number] [place] [address] 23552- 3776 Oct, Chronic pain syndrome G89.4 and Anxiety F41.9 [facility] [id number] [place] [address] 65314- 5036 Oct, [facility] [id number] [place] [address] 29766- 7300 Sep, Major depressive disorder, single episode, unspecified F32.9 and Chronic pain syndrome G89.4 [place] [id number] [place] [address] 53780- 4646 Sep, [facility] [id number] [place] [address] 98966- 7326 Aug, Chronic pain syndrome G89.4 and Anxiety F41.9 [facility] [id number] [place] [address] 60616- 4966 Aug, Chronic pain syndrome G89.4 and Anxiety F41.9 [place] [id number] [place] [address] 11366- 1976 Aug, [facility] [id number] [place] [address] 04273- 0548 Aug, Anxiety F41.9 and Chronic pain syndrome G89.4 [facility] [id number] [place] [address] 25711- 3991 Aug, [facility] [id number] [place] [address] 78830- 1041 Aug, Anxiety F41.9 ; Chronic pain syndrome G89.4 and Insomnia, unspecified G47.00 [facility] [id number] [place] [address] 40385- 5756 Jul, Chronic pain syndrome G89.4 ; Insomnia, unspecified G47.00 ; Type 2 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 ; assisted 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.4 ; Anxiety F41.9 and Essential (primary) hypertension I10 [place] [id number] [place] [address] 59755- 0402 Jul, [facility] [address] 44936- 2289 Jul, [facility] [address] 90812- 2889 Jul, [place] [address] 49500- 6184 Jul, Encounter for immunization Z23 [facility] [address] 91414- 7160 Jun, [place] [address] 57445- 7466 Jun, [facility] [address] 33436- 9130 May, [place] [address] 11364- 5366 May, [facility] [id number] [place] [address] 80770- 5973 May, [place] [address] 55605- 8132 Apr, Chronic pain syndrome G89.4 ; Anxiety F41.9 and Dyspepsia R10.13 [place] 70740- 1582 Apr, [place] [address] 58028- 1114 Mar, Chronic pain syndrome G89.4 and Anxiety F41.9 [place] [address] 20943- 4198 Mar, Chronic pain syndrome G89.4 [facility] [address] [facility] [id number] [place] [address] 4909 Feb, Chronic pain syndrome G89.4 and Anxiety F41.9 [facility] [id number] [place] [address]- 3656 Feb, [facility] [id number] [place] [address] 83790- 8220 Feb, Systolic murmur R01.1 [facility] [address] [facility] [id number] [address] 6421 Feb, [facility] [id number] [place] [address] 25728- 1406 Feb, [facility] [id number] [place] [address] 79075- 4196 Feb, Chronic pain syndrome G89.4 [facility] [id number] [place] [address] 17550- 9599 Jan, [facility] [id number] [place] [address] 06086- 3943 Jan, Heart murmur on physical examination R01.1 ; Anxiety F41.9 and Chronic pain syndrome G89.4 [facility] [address], [place] [address]- 9157 Jan, Anxiety F41.9 and Chronic pain syndrome G89.4 [facility] [address], [place] [address]- 2498 Jan, [facility] [id number], [place] [address]- 4197 Jan, Other malaise R53.81 [facility] [address], [place] [address]- 8748 Jan, [facility] [address], [place] [address]- 7688 Jan, [facility] [id number] [place] [address] 62871- 6462 Jan, Chronic pain syndrome G89.4 [facility] [id number] [place] [address] 89217- 9250 December, Other malaise R53.81 [facility] [id number] [place] [address] 53104- 2739 December, Type 2 diabetes mellitus with unspecified complications E11.8 [facility] [id number] [place] [address] 11226- 2165 December, Anxiety F41.9 and Chronic pain syndrome G89.4 [facility] [id number] [place] [address] 83336- 0734 December, Type 2 diabetes mellitus with unspecified complications E11.8 ; Anxiety F41.9 ; 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 and Chronic pain syndrome G89.4 [facility] [id number] [place] [address] 64299- 0822 Nov, [facility] [id number] [place] [address] 51782- 8927 Nov, [facility] [id number] [place] [address] 28129- 2748 Nov, Anxiety F41.9 and Chronic pain syndrome G89.4 [facility] [id number] [place] [address] 10666 -7352 Nov, Type 2 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 and Acute non-recurrent pansinusitis J01.40 [facility] [id number] [place] [address] 03569- 0321 Nov, Type 2 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 [facility] [id number] [place] [address] 79465- 0219 Nov, [facility] [id number] [place] [address] 91976- 6310 Oct, Chronic pain syndrome G89.4 [place] [id number] [place] [address] 67144- 2170 Oct, Chronic pain syndrome G89.4 and Anxiety F41.9 [place] [id number] [place] [address] 84536- 3939 Oct, Chronic pain syndrome G89.4 [place] [id number] [place] [address] 16348- 9969 Sep, Anxiety F41.9 and Chronic pain syndrome G89.4 [place] [id number] [place] [address] 81386- 9982 Aug, Chronic pain syndrome G89.4 ; Essential (primary) hypertension I10 ; Dyspepsia R10.13 ; Neuropathy G62.9 ; Mixed hyperlipidemia E78.2 ; Anxiety F41.9 ; Insomnia, unspecified G47.00 and Weight loss, unintentional R63.4 [place] [id number] [place] [address] 96036- 2321 Aug, Chronic pain syndrome G89.4 [place] [id number] [place] [address] 76823- 5341 Aug, Type 2 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 ; Chronic pain syndrome G89.4 ; assisted 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.4 and Wound, open, forearm, right, initial encounter S51.801A [place] [id number] [place] [address] 74985- 7994 Jul, [place] [id number] [place] [address] 13425- 7664 Jun, [place] [id number] [place] [address] 30017- 1039 Jun, [place] [id number] [place] [address] 50146- 6851 Jun, Chronic pain syndrome G89.4 ; Type 2 diabetes mellitus with unspecified complications E11.8 ; assisted 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.4 ; Essential (primary) hypertension I10 ; Dyspepsia R10.13 ; Neuropathy G62.9 ; Mixed hyperlipidemia E78.2 ; Anxiety F41.9 ; Insomnia, unspecified G47.00 and Alteration in mobility due to weakness R53.1 [facility] [address], [place] [address]- 4736 May, [facility] [id number] [place] [address] 90683- 7571 May, [facility] [id number] [place] [address] 37367- 2781 May, [facility] [id number] [place] [address] 24253- 9384 May, [facility] [id number] [place] [address] 17900- 7569 Apr, [facility] [id number] [place] [address] 86049- 1577 Apr, [facility] [id number] [place] [address] 69412- 7125 Apr, [facility] [id number] [place] [address] 90864- 2604 Mar, [facility] [id number] [place] [address] 18463- 3234 Mar, Chronic pain syndrome G89.4 ; Type 2 diabetes mellitus with unspecified complications E11.8 ; 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 ; Essential (primary) hypertension I10 ; Dyspepsia R10.13 ; Neuropathy G62.9 ; Mixed hyperlipidemia E78.2 ; Anxiety F41.9 and Insomnia, unspecified G47.00 [facility] [id number] [place] [address] 18674- 0029 Mar, [facility] [id number] [place] [address] 48573- 5174 Mar, [facility] [id number] [place] [address] 04388- 0236 Feb, [place] [id number] [place] [address] 24420- 6333 Feb, Chronic pain syndrome G89.4 ; Type 2 diabetes mellitus with unspecified complications E11.8 ; 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 ; Essential (primary) hypertension I10 ; Dyspepsia R10.13 ; Neuropathy G62.9 ; Mixed hyperlipidemia E78.2 ; Anxiety F41.9 and Insomnia, unspecified G47.00 [place] [id number] [place] [address] 20900- 9302 Jan, [place] [id number] [place] [address] 64341- 2549 Jan, Chronic pain syndrome G89.4 ; Type 2 diabetes mellitus with unspecified complications E11.8 ; 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 ; Essential (primary) hypertension I10 ; Dyspepsia R10.13 ; Neuropathy G62.9 ; Mixed hyperlipidemia E78.2 ; Anxiety F41.9 and Insomnia, unspecified G47.00 [place] [id number] [place] [address] 68420- 8926 Jan, [place] [id number] [place] [address] 66004- 8884 Jan, [place] [id number] [place] [address] 76245- 9034 December, Chronic pain syndrome G89.4 ; Type 2 diabetes mellitus with unspecified complications E11.8 ; assisted 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.4 ; Essential (primary) hypertension I10 ; Dyspepsia R10.13 ; Neuropathy G62.9 ; Mixed hyperlipidemia E78.2 ; Anxiety F41.9 and Insomnia, unspecified G47.00 [place] [id number] [place] [address] 36675- 7243 December, [place] [id number] [place] [address] 13706- 3901 Nov, [facility] [address], [place] [address]- 2885 Nov, [facility] [id number] [place] [address] 67408- 6583 Oct, Chronic pain syndrome G89.4 and Skin infection L08.9 [facility] [id number], [place] [address]- 9173 Oct, [facility] [id number] [place] [address] 10535- 2673 Oct, [facility] [id number] [place] [address] 41503- 5975 Oct, [facility] [id number] [place] [address] 67128- 1600 Oct, [facility] [id number] [place] [address] 18471- 1983 Oct, [facility] [id number] [place] [address] 81919- 3010 Oct, [facility] [id number] [place] [address] 81027- 0276 Oct, Chronic pain syndrome G89.4 ; Type 2 diabetes mellitus with unspecified complications E11.8 ; assisted 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.4 ; Essential (primary) hypertension I10 ; Dyspepsia R10.13 ; Neuropathy G62.9 and Mixed hyperlipidemia E78.2 [facility] [address], [place] [address]- 2994 Oct, [facility] [address], [place] [address]- 9331 Sep, [facility] [address], [place] [address]- 0545 Sep, [facility] [address], [place] [address]- 3149 Sep, Chronic pain syndrome G89.4 [place] [id number] [place] [address] 91663- 0914 Aug, [place] [id number] [place] [address] 36525- 6269 Aug, Chronic pain syndrome G89.4 ; Type 2 diabetes mellitus with unspecified complications E11.8 ; 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 ; Essential (primary) hypertension I10 and Dyspepsia R10.13 [place] [id number] [place] [address] 18532- 1051 Aug, Rash R21 [address] [id number] [place] [address] 71897- 5171 Aug, [place] [id number] [place] [address] 76520- 9899 Aug, [place] [id number] [place] [address] 43940- 4929 Aug, [place] [id number] [place] [address] 45300- 4117 Aug, Insomnia, unspecified G47.00 ; Chronic pain syndrome G89.4 and Anxiety F41.9 [id number] [place] [address] 78931- 4931 Aug, Depression, major, recurrent, in partial remission F33.41 and Anxiety disorder, unspecified F41.[address] [place] [address] 95045- 4114 Jul, [place] [id number] [place] [address] 91099- 6456 Jul, Chronic pain syndrome G89.4 ; Type 2 diabetes mellitus with unspecified complications E11.8 ; Gastro-esophageal reflux disease with esophagitis K21.0 ; 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 ; Mixed hyperlipidemia E78.2 ; Essential (primary) hypertension I10 ; Otalgia of both ears H92.03 and Alopecia L65.9 [place] [id number] [place] [address] 63209- 4264 Jul, [facility] [id number] [place] [address] 73844- 5747 Jul, [facility] [id number] [place] [address] 19297- 4532 Jul, Anxiety F41.9 and Depressive disorder, not elsewhere classified 311 [facility] [address] 67271- 5483 Jul, [facility] [id number] [place] [address] 87816- 6169 Jul, Insomnia, unspecified G47.00 ; Anxiety disorder, unspecified F41.9 and Major depressive disorder, single episode, unspecified F32.9 [place] [address] 22559- 0255 Jun, [facility] [address] 83159- 4632 Jun, Insomnia, unspecified G47.00 ; Generalized psoriasis L40.1 and Chronic pain syndrome G89.4 [place] [id number] [place] [address] 48549- 5076 Jun, [facility] [id number] [place] [address] 56393- 2063 Jun, [facility] [id number] [place] [address] 61156- 8641 Jun, Depressive disorder, not elsewhere classified 311 and Anxiety F41.9 [facility] [id number] [place] [address] 03020- 2763 Jun, Generalized psoriasis L40.1 [facility] [id number] [place] [address] 59034 -7224 Jun, Dermatitis L30.9 [facility] [id number] [place] [address] 26313- 7942 May, Insomnia, unspecified G47.00 ; Chronic pain syndrome G89.4 and GERD (gastroesophageal reflux disease) K21.[address] 46245- 9999 May, Insomnia, unspecified G47.00 ; Anxiety disorder, unspecified F41.9 and Major depressive disorder, single episode, unspecified F32.[address] 86979- 1716 May, Depressive disorder, not elsewhere classified 311 and Anxiety F41.[address] 61748- 0125 May, [address] 41741- 2284 May, Insomnia, unspecified G47.00 and Encounter for immunization Z23 [address] 22358- 0317 May, [address] 06808- 8099 May, Chronic pain syndrome G89.4 ; Mixed hyperlipidemia E78.2 ; Type 2 diabetes mellitus with unspecified complications E11.8 ; Essential ( primary) hypertension I10 ; Anxiety F41.9 ; Insomnia, unspecified G47.00 ; 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 M79.7 and 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 [place] [id number] [place] [address] 38765- 2562 Apr, [place] [id number] [place] [address] 98949- 6780 Apr, Dyspepsia 536.8 and Insomnia 780.[address] 39352- 7766 Apr, Other malaise and fatigue 780.79 [place] [id number] [place] [address] 23505- 6198 Apr, [address], [place] [address]- 8491 Mar, Diabetes with neurological manifestations, type II or unspecified type, not stated as uncontrolled 250.60 ; Other chronic pain 338.29 ; Essential hypertension, benign 401.1 ; Anxiety state, unspecified 300.00 ; Insomnia 780.52 and Hyperlipidemia 272.4 [facility] [address], [place] [address]- 8646 Mar, [facility] [id number] [place] [address] 95402- 0983 Feb, [facility] [id number] [place] [address] 73454- 5378 Feb, [facility] [id number] [place] [address] 37623- 1816 Feb, [facility] [id number] [place] [address] 01611- 1095 Feb, [facility] [id number] [place] [address] 87799- 6211 Feb, [facility] [id number] [place] [address] 19766- 1423 Jan, Depressive disorder, not elsewhere classified 311 and Dyssomnia 780.56 [facility] [address], [place] [address]- 5529 Jan, Diabetes with neurological manifestations, type II or unspecified type, not stated as uncontrolled 250.60 ; Other chronic pain 338.29 ; Essential hypertension, benign 401.1 ; Anxiety state, unspecified 300.00 ; Insomnia 780.52 and Hyperlipidemia 272.4 [facility] [address], [place] [address]- 9708 Jan, [facility] [id number], [place] [address]- 9072 Jan, [facility] [address], [place] [address]- 7100 Jan, [facility] [address], [place] [address]- 6220 Jan, [facility] [address], [place] [address]- 5706 Jan, [facility] [address], [place] [address]- 9094 Jan, [facility] [id number] [place] [address] 51835- 8422 December, [facility] [address] [address] December, [facility] [id number] [place] [address] December, [facility] [id number] [place] [address] December, [facility] [id number] [address] December, Anxiety state, unspecified 300.00 ; Other chronic pain 338.29 ; Diabetes with neurological manifestations, type II or unspecified type , not stated as uncontrolled 250.60 ; Essential hypertension, benign 401.1 ; Compression fracture of thoracic spine, non-traumatic 733.13 ; Wrist fracture, left 814.00 and Fall at home E888.9 [facility] [address] [address] December, [facility] [address] [address] December, [facility] [id number] [address] Nov, [facility] [address] [place] [address] Nov, [facility] [address] [address] Nov, [facility] [id number] [place] [address] 13 Nov, 2014 [facility] [place] [facility] [address] [id number] [place] [address] Oct, [facility] [place] [facility] [address] [id number] [place] [address] Oct, [facility] [place] [facility] [address] [id number] [place] [address] Oct, [facility] [place] [facility] [address] [id number] [place] [address] Oct, [facility] [place] [facility] [address] [id number] [place] [address] Oct, [facility] [place] [facility] [address] [id number] [place] [address] Oct, [facility] [place] [facility] [address] [id number] [place] [address] Oct, [facility] [place] [facility] [address] [id number] [place] [address] Oct, [facility] [place] [facility] [address] [id number] [place] [address] Sep, [facility] [facility] [facility] [address] [facility] [id number] [place] [address] Sep, [facility] [place] [facility] [address] [id number] [place] [address] Sep, [facility] [place] [facility] [address] [facility] [id number] [place] [address] Sep, [facility] [place] [facility] [address] [id number] [place] [address] Aug, [facility] [place] [facility] [address] [id number] [place] [address] Aug, [facility] [place] [facility] [address] [id number] [place] [address] Aug, [facility] [address] [facility] [id number], [place] [address] Aug, [facility] [address] [facility] [id number], [place] [address] Aug, [facility] [address] [facility] [id number], [place] [address] Aug, [facility] [address] [facility] [id number], [place] [address] Aug, [facility] [address] [facility] [id number], [place] [address] Aug, IMMUNIZATIONS No Known Immunizations SOCIAL HISTORY Never Assessed REASON FOR VISIT Controlled Refill Request PLAN OF CARE VITAL SIGNS MEDICATIONS Medication Instructions Dosage Frequency Start Date End Date Duration Status Lyrica 50 MG Orally Twice a day 1 capsule 12h 28 days Active Lorazepam 2 MG Orally Once a day prn 1 tablet Active Pravastatin Sodium 20 MG Orally Once a day 1 tablet 24h 90 Active Temazepam 30 MG TAKE ONE CAPSULE BY MOUTH AT BEDTIME NEEDED Active OxyContin 15 MG Orally every 12 hrs 1 tablet 12h Feb, 28 days Active Hydrocodone-Acetaminophen 7.5-325 MG Orally 3 times a day- must last 28 days 1 tablet as needed Feb, Active RESULTS No Results PROCEDURES No Known [...]
--- OUTSIDE RECORDS SUMMARY | 2018-01-14 12:16 | XMS REPORT ---
Author Author LANIE BRIONES 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 Name Role Phone LANIE BRIONES Unavailable PROBLEMS Type Condition ICD9-CM Code [id number] Code Onset Dates Condition Status SNOMED Code Diagnosis Mixed hyperlipidemia E78.2 Active 555167023 Problem Generalized psoriasis L40.1 Active 291700165 Diagnosis Arthritis M19.90 Active 9349711 Problem Major depressive disorder, single episode, unspecified F32.9 Active 94247728 Problem Type 2 diabetes mellitus with unspecified complications E11.8 Active 602795132 Problem Neuropathy G62.9 Active 639726154 Problem Dyspepsia R10.13 Active 995905272 Problem Weight loss, unintentional R63.4 Active 998610112 Problem Type 2 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 Active 28475499 Condition Depressive disorder, not elsewhere classified 311 Active 12954556 Diagnosis Anxiety F41.9 Active 64772793 Diagnosis Gastro-esophageal reflux disease with esophagitis K21.0 Active 796095421 Diagnosis Chronic pain syndrome G89.4 Active 63136383 Problem halfway 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.4 Active 187982642 Problem Insomnia, unspecified G47.00 Active 349316841 Problem 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 M79.7 Active 12254398 Diagnosis Essential (primary) hypertension I10 Active 66359683 ALLERGIES No Information ENCOUNTERS Encounter Location Date Diagnosis [facility] [id number] [address] Nov, [facility] [id number] [place] [address] 46240- 9377 Nov, Major depressive disorder, single episode, unspecified F32.9 and Chronic pain syndrome G89.4 [facility] [id number] [place] [address] 91188- 1893 Nov, Chronic pain syndrome G89.4 [facility] [id number] [place] [address] 29837- 2016 Oct, Chronic pain syndrome G89.[address] [facility] [id number] [place] [address] 879899- 6416 Oct, Major depressive disorder, single episode, unspecified F32.9 [facility] [id number] [place] [address] 38515- 0446 Oct, Chronic pain syndrome G89.[address] [facility] [id number] [place] [address] 18510- 0086 Oct, [facility] [id number] [place] [address] 71100- 9226 Sep, Major depressive disorder, single episode, unspecified F32.9 and Chronic pain syndrome G89.4 [facility] [id number] [place] [address] 56256- 9643 Sep, [facility] [id number] [place] [address] 22080- 0486 Aug, Chronic pain syndrome G89.[address] [facility] [id number] [place] [address] 28238- 0706 Aug, Chronic pain syndrome G89.[address] [facility] [id number] [place] [address] 92795- 1616 Aug, [facility] [id number] [place] [address] 98980- 1616 Aug, Anxiety F41.9 and Chronic pain syndrome G89.4 [facility] [id number] [place] [address] 443348- 7176 Aug, [facility] [id number] [place] [address] 46116- 2876 Aug, Anxiety F41.9 ; Chronic pain syndrome G89.4 and Insomnia, unspecified G47.00 [facility] [id number] [place] [address] 27758- 7554 Jul, Chronic pain syndrome G89.4 ; Insomnia, unspecified G47.00 ; Type 2 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 ; halfway 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.4 ; Anxiety F41.9 and Essential (primary) hypertension I10 [facility] [address] 04133- 1718 Jul, [facility] [address] 78556- 9682 Jul, [facility] [address] 43611- 9691 Jul, [facility] [address] 64996- 9553 Jul, Encounter for immunization Z23 [facility] [address] 18959- 7306 Jun, [facility] [address] 62267- 4133 Jun, [facility] [id number] [place] [address] 88574- 9912 May, [facility] [id number] [place] [address] 85877- 9104 May, [facility] [id number] [place] [address] 67132- 2032 May, [facility] [id number] [place] [address] 36216- 1295 25 Apr, 2017 Chronic pain syndrome G89.4 ; Anxiety F41.[address] [facility] [id number] [place] [address] 69408- 8128 14 Apr, 2017 [facility] [address] 49980- 2363 Mar, Chronic pain syndrome G89.[address] [facility] [id number] [place] [address] 39248- 7765 Mar, Chronic pain syndrome G89.4 [facility] [id number] [place] [address] 92622- 3541 Feb, Chronic pain syndrome G89.[address] [facility] [id number] [place] [address] 22324- 2825 Feb, [facility] [id number] [place] [address] 78137- 3662 Feb, Systolic murmur R01.1 [facility] [id number] [place] [address] 78475- 9354 Feb, [facility] [id number] [place] [address] 09364- 1459 Feb, [facility] [id number] [place] [address] 62438- 6537 Feb, Chronic pain syndrome G89.4 [facility] [id number] [place] [address] 95272- 5771 Jan, [facility] [id number] [place] [address] 82193- 8789 Jan, Heart murmur on physical examination R01.1 ; Anxiety F41.9 and Chronic pain syndrome G89.4 [facility] [id number] [place] [address] 94695- 9443 Jan, Anxiety F41.9 and Chronic pain syndrome G89.4 [facility] [id number] [place] [address] 40535- 3630 Jan, [facility] [id number] [place] [address] 47480- 1946 Jan, Other malaise R53.81 [facility] [address] [place] [address] 5[address] Jan, [facility] [id number] [place] [address] 69667- 5167 Jan, [facility] [id number] [place] [address] 30440- 1549 Jan, Chronic pain syndrome G89.4 [facility] [id number] [place] [address] 37799- 4779 December, Other malaise R53.81 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 [id number] [place] [address] 73605- 3414 Nov, Anxiety F41.9 and Chronic pain syndrome G89.4 [facility] [id number] [place] [address] 89061 -2292 Nov, Type 2 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 and Acute non-recurrent pansinusitis J01.40 [facility] [id number] [place] [address] 10710- 7370 Nov, Type 2 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 [facility] [id number] [place] [address] 13538- 4380 Nov, [facility] [address] 79071- 2341 Oct, Chronic pain syndrome G89.4 [facility] [id number] [place] [address] 91196- 2615 Oct, Chronic pain syndrome G89.4 and Anxiety F41.9 [facility] [address] 52567- 1304 Oct, Chronic pain syndrome G89.4 [facility] [address] 83594- 8850 Sep, Anxiety F41.9 and Chronic pain syndrome G89.4 [facility] [address] 25522- 5975 Aug, Chronic pain syndrome G89.4 ; Essential (primary) hypertension I10 ; Dyspepsia R10.13 ; Neuropathy G62.9 ; Mixed hyperlipidemia E78.2 ; Anxiety F41.9 ; Insomnia, unspecified G47.00 and Weight loss, unintentional R63.4 [facility] [id number] [place] [address] 08850- 2298 Aug, Chronic pain syndrome G89.4 [facility] [id number] [place] [address] 16336- 4533 Aug, Type 2 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 ; Chronic pain syndrome G89.4 ; halfway 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.4 and Wound, open, forearm, right, initial encounter S51.801A [facility] [address] 98367- 7616 Jul, [facility] [id number] [place] [address] 64285- 6501 Jun, [facility] [address] 86711- 3158 Jun, [facility] [address] [address]- 3585 Jun, Chronic pain syndrome G89.4 ; Type 2 diabetes mellitus with unspecified complications E11.8 ; halfway 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.4 ; Essential (primary) hypertension I10 ; Dyspepsia R10.13 ; Neuropathy G62.9 ; Mixed hyperlipidemia E78.2 ; Anxiety F41.9 ; Insomnia, unspecified G47.00 and Alteration in mobility due to weakness R53.1 [facility] [id number] [place] [address] 88747- 6638 May, [facility] [id number] [place] [address] 91642- 3940 May, [facility] [id number] [place] [address] 87315- 7021 May, [facility] [id number] [place] [address] 01267- 0405 May, [facility] [id number] [place] [address] 57418- 9347 Apr, [facility] [id number] [place] [address] 62555- 2018 Apr, [facility] [id number] [place] [address] 17241- 7215 Apr, [facility] [id number] [place] [address] 68313- 0868 Mar, [facility] [id number] [place] [address] 79475- 7371 Mar, Chronic pain syndrome G89.4 ; Type 2 diabetes mellitus with unspecified complications E11.8 ; halfway 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.4 ; Essential (primary) hypertension I10 ; Dyspepsia R10.13 ; Neuropathy G62.9 ; Mixed hyperlipidemia E78.2 ; Anxiety F41.9 and Insomnia, unspecified G47.00 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 ; Essential (primary) hypertension I10 ; Dyspepsia R10.13 ; Neuropathy G62.9 ; Mixed hyperlipidemia E78.2 ; Anxiety F41.9 and Insomnia, unspecified G47.00 [facility] [address] [address]- 2102 Jan, [facility] [id number] [place] [address] 54432- 7356 Jan, Chronic pain syndrome G89.4 ; Type 2 diabetes mellitus with unspecified complications E11.8 ; 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 ; Essential (primary) hypertension I10 ; Dyspepsia R10.13 ; Neuropathy G62.9 ; Mixed hyperlipidemia E78.2 ; Anxiety F41.9 and Insomnia, unspecified G47.00 [facility] [address] [address]- 3076 Jan, [facility] [id number] [place] [address] 05976- 9160 Jan, [facility] [id number] [place] [address] 41238- 3822 December, Chronic pain syndrome G89.4 ; Type 2 diabetes mellitus with unspecified complications E11.8 ; halfway 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.4 ; Essential (primary) hypertension I10 ; Dyspepsia R10.13 ; Neuropathy G62.9 ; Mixed hyperlipidemia E78.2 ; Anxiety F41.9 and Insomnia, unspecified G47.00 [facility] [address] [address]- 6942 December, [facility] [id number] [place] [address] 38409- 5064 Nov, [facility] [id number] [place] [address] 63281- 8464 Nov, [facility] [id number] [place] [address] 74756- 8707 Oct, Chronic pain syndrome G89.[address] infection [address]9 [facility] [id number] [place] [address] 95623- 2692 Oct, [facility] [id number] [place] [address] 45051- 3169 Oct, [facility] [id number] [place] [address] 89362- 9650 Oct, [facility] [id number] [place] [address] 08230- 8787 Oct, [facility] [id number] [place] [address] 44651- 3182 Oct, [facility] [id number] [place] [address] 45142- 3428 Oct, 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 [address] [address]- 6227 Oct, [facility] [id number] [place] [address] 97266- 1106 Sep, [facility] [id number] [place] [address] 45111- 0276 Sep, [facility] [id number] [place] [address] 37809- 9641 Sep, Chronic pain syndrome G89.4 [facility] [id number] [place] [address] 93415- 0247 Aug, [facility] [id number] [place] [address] 95431- 7279 Aug, Chronic pain syndrome G89.4 ; Type 2 diabetes mellitus with unspecified complications E11.8 ; halfway 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.4 ; Essential (primary) hypertension I10 and Dyspepsia R10.13 [facility] [id number] [place] [address] 67402- 4628 Aug, Rash R21 [facility] [id number] [place] [address] 66165- 9085 Aug, [facility] [id number] [place] [address] 44376- 9933 Aug, [facility] [id number] [place] [address] 66165- 8146 Aug, [facility] [id number] [place] [address] 67846- 2214 Aug, Insomnia, unspecified G47.00 ; Chronic pain syndrome G89.4 and Anxiety F41.9 [facility] [address] [place] [address] 90046- 2539 Aug, Depression, major, recurrent, in partial remission F33.41 and Anxiety disorder, unspecified F41.9 [facility] [id number] [place] [address] 49470- 3372 Jul, [facility] [id number] [place] [address] 88622- 1207 Jul, Chronic pain syndrome G89.4 ; Type 2 diabetes mellitus with unspecified complications E11.8 ; Gastro-esophageal reflux disease with esophagitis K21.0 ; halfway 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.4 ; Mixed hyperlipidemia E78.2 ; Essential (primary) hypertension I10 ; Otalgia of both ears H92.03 and Alopecia L65.9 [facility] [id number] [place] [address] 66087- 5827 Jul, [facility] [address] 24347- 6293 Jul, [facility] [address] 67783- 6913 Jul, Anxiety F41.9 and Depressive disorder, not elsewhere classified 311 [facility] [address] 78416- 8950 Jul, [facility] [address] 61001- 4522 Jul, Insomnia, unspecified G47.00 ; Anxiety disorder, unspecified F41.9 and Major depressive disorder, single episode, unspecified F32.9 [facility] [id number] [place] [address] 80233- 9940 Jun, [facility] [address] 69008- 9269 Jun, Insomnia, unspecified G47.00 ; Generalized psoriasis L40.1 and Chronic pain syndrome G89.4 [facility] [address] 24940- 4049 Jun, [facility] [id number] [place] [address] 93088- 4973 Jun, [facility] [address] 71213- 3688 Jun, Depressive disorder, not elsewhere classified 311 and Anxiety F41.9 [facility] [address] 70270- 1318 Jun, Generalized psoriasis L40.1 [facility] [address] [place] [address] -1701 Jun, Dermatitis L30.9 [facility] [address] 19663- 1298 May, Insomnia, unspecified G47.00 ; Chronic pain syndrome G89.4 and GERD (gastroesophageal reflux disease) K21.[address] 27107- 6585 May, Insomnia, unspecified G47.00 ; Anxiety disorder, unspecified F41.9 and Major depressive disorder, single episode, unspecified F32.[address] 89276- 1794 May, Depressive disorder, not elsewhere classified 311 and Anxiety F41.9 [facility] [address] 43944- 2224 May, [address] 87047- 7431 May, Insomnia, unspecified G47.00 and Encounter for immunization Z23 [address] 06326- 2008 May, [address] 29777- 9161 May, Chronic pain syndrome G89.4 ; Mixed hyperlipidemia E78.2 ; Type 2 diabetes mellitus with unspecified complications E11.8 ; Essential ( primary) hypertension I10 ; Anxiety F41.9 ; Insomnia, unspecified G47.00 ; 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 M79.7 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 [address] [address]- 0562 Apr, [facility] [id number] [place] [address] 63296- 7699 Mar, Diabetes with neurological manifestations, type II or unspecified type, not stated as uncontrolled 250.60 ; Other chronic pain 338.29 ; Essential hypertension, benign 401.1 ; Anxiety state, unspecified 300.00 ; Insomnia 780.[address] [facility] [address] [address]- 7090 Mar, [facility] [id number] [place] [address] 14451- 2309 Feb, [facility] [id number] [address] 1619 Feb, [facility] [id number] [place] [address] 78580- 0188 Feb, [facility] [address] [address] 2639 Feb, [facility] [address] [address]- 4799 Feb, [facility] [address] [address]- 8367 Jan, Depressive disorder, not elsewhere classified [address] [facility] [address] [address]- 0429 Jan, Diabetes with neurological manifestations, type II or unspecified type, not stated as uncontrolled 250.60 ; Other chronic pain 338.29 ; Essential hypertension, benign 401.1 ; Anxiety state, unspecified 300.00 ; Insomnia 780.[address] [facility] [address] [address]- 0692 Jan, [facility] [id number] [address]- 6439 Jan, [facility] [address] [address] 6168 Jan, [facility] [address] [address] 0449 Jan, [facility] [address] [address] 9432 Jan, [facility] [address] [address]- 3646 Jan, [facility] [id number] [place] [address] 41025- 6821 December, [facility] [id number] [place] [address] 45089- 6400 December, [facility] [id number] [place] [address] 11699- 2228 December, [facility] [address] [address]- 7126 December, [facility] [id number] [place] [address] 29677- 6923 December, Anxiety state, unspecified 300.00 ; Other chronic pain 338.29 ; Diabetes with neurological manifestations, type II or unspecified type , not stated as uncontrolled 250.60 ; Essential hypertension, benign 401.1 ; Compression fracture of thoracic spine, non-traumatic 733.13 ; Wrist fracture, left 814.00 and Fall at home E888.9 [facility] [id number] [address] December, [facility] [id number] [id number] December, [facility] [id number] [address] Nov, [facility] [id number] [address] 29 Nov, 2014 [facility] [place] [facility] [address] [id number] [place] [address] 14 Nov, 2014 [facility] [place] [facility] [address] [id number] [place] [address] Nov, [facility] [place] [facility] [address] [id number] [place] [address] Oct, [facility] [place] [facility] [address] [id number] [place] [address] Oct, [facility] [place] [facility] [address] [id number] [place] [address] Oct, [facility] [place] [facility] [address] [id number] [place] [address] Oct, [facility] [place] [facility] [address] [id number] [place] [address] Oct, [facility] [place] [facility] [address] [id number] [place] [address] Oct, [facility] [place] [facility] [address] [id number] [place] [address] Oct, [facility] [place] [facility] [address] [id number] [place] [address] Oct, [facility] [place] [facility] [address] [id number] [place] [address] Sep, [facility] [place] [facility] [address] [id number] [place] [address] Sep, [facility] [place] [facility] [address] [id number] [place] [address] Sep, [facility] [place] [facility] [address] [id number] [place] [address] Sep, [facility] [place] [facility] [address] [id number] [place] [address] Aug, [facility] [place] [facility] [address] [facility] [id number] [id number] Aug, [facility] [facility] [address] [facility] [id number] [place] [address] Aug, [facility] [address] [id number] [address] Aug, [facility] [address] [facility] [id number] [address] Aug, [facility] [address] [facility] [id number] [address] Aug, [facility] [address] [id number] [address] Aug, [facility] [address] [facility] [id number] [place] [address] Aug, IMMUNIZATIONS No Known Immunizations SOCIAL HISTORY Never Assessed REASON FOR VISIT Controlled Med Refill PLAN OF CARE VITAL SIGNS MEDICATIONS Medication Instructions Dosage Frequency Start Date End Date Duration Status Temazepam 30 MG TAKE ONE CAPSULE BY MOUTH AT BEDTIME NEEDED Active Hydrocodone-Acetaminophen 7.5-325 MG Orally 3 times a day- must last 28 days 1 tablet as needed Mar, Active OxyContin 15 MG Orally every 12 hrs 1 tablet 12h Mar, 28 days Active Lorazepam 2 MG Orally Once a day prn 1 tablet Active Lyrica 50 mg Orally Twice a day [...]
--- OUTSIDE RECORDS SUMMARY | 2018-01-14 12:17 | XMS REPORT ---
Author Author LANIE BRIONES [facility] Address [address] [place] [address] Care Team Providers Care Regional Transfer Liaison Name Role Phone LANIE BRIONES Unavailable PROBLEMS Type Condition ICD9-CM Code IRJ06-OZ Code Onset Dates Condition Status SNOMED Code Diagnosis Mixed hyperlipidemia E78.2 Active 045761594 Problem Generalized psoriasis L40.1 Active 283881168 Diagnosis Arthritis M19.90 Active 1194980 Problem Major depressive disorder, single episode, unspecified F32.9 Active 59829767 Problem Type 2 diabetes mellitus with unspecified complications E11.8 Active 103768887 Problem Neuropathy G62.9 Active 739648787 Problem Dyspepsia R10.13 Active 457670376 Problem Weight loss, unintentional R63.4 Active 412103831 Problem Type 2 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 Active 86653346 Condition Depressive disorder, not elsewhere classified 311 Active 01651332 Diagnosis Anxiety F41.9 Active 00306619 Diagnosis Gastro-esophageal reflux disease with esophagitis K21.0 Active 710446847 Diagnosis Chronic pain syndrome G89.4 Active 17751427 Problem FDC 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.4 Active 135552942 Problem Insomnia, unspecified G47.00 Active 723675227 Problem 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 M79.7 Active 30156562 Diagnosis Essential (primary) hypertension I10 Active 92161583 ALLERGIES No Information ENCOUNTERS Encounter Location Date Diagnosis [facility] [address] [address] Nov, [facility] [id number] [place] [address] 84703- 8899 Nov, [facility] [address] [address] 8[address] Oct, Major depressive disorder, single episode, unspecified F32.9 [facility] [id number] [place] [address] 98744- 5969 Oct, Chronic pain syndrome G89.4 and Anxiety F41.9 [facility] [id number] [place] [address] 02104- 6046 Oct, [facility] [id number] [place] [address] 41010- 8385 Sep, Major depressive disorder, single episode, unspecified F32.9 and Chronic pain syndrome G89.4 [facility] [id number] [place] [address] 33498- 4683 Sep, [facility] [id number] [place] [address] 23231- 9834 Aug, Chronic pain syndrome G89.4 and Anxiety F41.9 [facility] [id number] [place] [address] 85426- 4987 Aug, Chronic pain syndrome G89.4 and Anxiety F41.9 [facility] [id number] [place] [address] 82417- 8843 Aug, [facility] [id number] [place] [address] 87897- 7282 Aug, Anxiety F41.9 and Chronic pain syndrome G89.4 [facility] [id number] [place] [address] 92669- 5953 Aug, [facility] [id number] [place] [address] 79041- 2867 Aug, Anxiety F41.9 ; Chronic pain syndrome G89.4 and Insomnia, unspecified G47.00 [facility] [address] [place] [address] 51543- 0743 Jul, Chronic pain syndrome G89.4 ; Insomnia, unspecified G47.00 ; Type 2 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 ; 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.4 ; Anxiety F41.9 and Essential (primary) hypertension I10 [facility] [address] [address] 0[address] Jul, [facility] [address] [address]- 4305 Jul, [facility] [address], [place] [address]- 6883 Jul, [facility] [id number] [place] [address] 325769- 6113 Jul, Encounter for immunization Z23 [facility] [id number] [place] [address] 78713- 2264 Jun, [facility] [id number] [place] [address] 81612- 8851 Jun, [facility] [id number] [place] [address] 43201- 8048 May, [facility] [id number] [place] [address] 91397- 2278 May, [facility] [address], [place] [address]- 6965 May, [facility] [address], [place] [address] 1993 Apr, Chronic pain syndrome G89.4 ; Anxiety F41.9 and Dyspepsia R10.13 [facility] [address], [place] [address]- 1571 Apr, [facility] [address], [place] [address]- 1434 Mar, Chronic pain syndrome G89.4 and Anxiety F41.9 [facility] [address], [place] [address]- 8317 Mar, Chronic pain syndrome G89.4 [facility] [address], [place] [address]- 5080 Feb, Chronic pain syndrome G89.4 and Anxiety F41.9 [facility] [address] [facility] [id number], [place] [address] Feb, [facility] [address] [facility] [id number] [place] [address] 47596- 5223 Feb, Systolic murmur R01.1 [facility] [address] [facility] [id number], [place] [address] 8956 Feb, [facility] [address] [facility] [id number] [place] [address] 68548- 1785 Feb, [facility] [address] [facility] [id number] [place] [address] 88168- 7064 Feb, Chronic pain syndrome G89.4 [facility] [id number] [place] [address] 12064- 9679 Jan, [facility] [address] [place] [address] 13486- 8367 Jan, Heart murmur on physical examination R01.1 ; Anxiety F41.9 and Chronic pain syndrome G89.4 [facility] [address] [facility] [id number] [place] [address] 93829- 4556 Jan, Anxiety F41.9 and Chronic pain syndrome G89.4 [facility] [id number] [place] [address] 44151- 4685 Jan, [facility] [address] [place] [address] 49625- 9466 Jan, Other malaise R53.81 [facility] [address] [facility] [id number], [place] [address]- 9087 Jan, [facility] [id number] [place] [address] 31975- 3421 Jan, [facility] [id number] [address]- 2870 Jan, Chronic pain syndrome G89.4 [facility] [address] [place] [address] 13641- 3331 December, Other malaise R53.81 [facility] [address] 75377- 4523 December, Type 2 diabetes mellitus with unspecified complications E11.8 [facility] [id number] [place] [address] 08576- 3251 December, Anxiety F41.9 and Chronic pain syndrome G89.4 [facility] [address] 31359- 5457 December, Type 2 diabetes mellitus with unspecified complications E11.8 ; Anxiety F41.9 ; 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.4 and Chronic pain syndrome G89.4 [facility] [id number] [place] [address] 41455- 2209 Nov, [facility] [address] 70123- 4304 Nov, [facility] [address] 59158- 9451 Nov, Anxiety F41.9 and Chronic pain syndrome G89.4 [facility] [id number] [place] [address] 71546 -6115 Nov, Type 2 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 and Acute non-recurrent pansinusitis J01.40 [facility] [id number] [place] [address] 62206- 3603 Nov, Type 2 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 [facility] [id number] [place] [address] 99505- 7622 Nov, [facility] [address] 69147- 6089 Oct, Chronic pain syndrome G89.4 [facility] [id number] [place] [address] 22352- 3840 Oct, Chronic pain syndrome G89.4 and Anxiety F41.9 [facility] [id number] [place] [address] 07374- 2037 Oct, Chronic pain syndrome G89.4 [facility] [id number] [place] [address] 51020- 5040 Sep, Anxiety F41.9 and Chronic pain syndrome G89.4 [facility] [address] 20663- 0189 Aug, Chronic pain syndrome G89.4 ; Essential (primary) hypertension I10 ; Dyspepsia R10.13 ; Neuropathy G62.9 ; Mixed hyperlipidemia E78.2 ; Anxiety F41.9 ; Insomnia, unspecified G47.00 and Weight loss, unintentional R63.4 [facility] [id number] [place] [address] 39520- 3011 Aug, Chronic pain syndrome G89.4 [facility] [address] [place] [address] 06330- 7586 Aug, Type 2 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 ; Chronic pain syndrome G89.4 ; FDC 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.4 and Wound, open, forearm, right, initial encounter S51.801A [facility] [id number] [place] [address] 89236- 1087 Jul, [facility] [id number] [place] [address] 52789- 9474 Jun, [facility] [id number] [place] [address] 32947- 5067 Jun, [facility] [address] 68589- 5143 Jun, Chronic pain syndrome G89.4 ; Type 2 diabetes mellitus with unspecified complications E11.8 ; FDC 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.4 ; Essential (primary) hypertension I10 ; Dyspepsia R10.13 ; Neuropathy G62.9 ; Mixed hyperlipidemia E78.2 ; Anxiety F41.9 ; Insomnia, unspecified G47.00 and Alteration in mobility due to weakness R53.1 [facility] [id number] [address]- 7567 May, [facility] [id number] [place] [address] 32019- 7246 May, [facility] [id number] [place] [address] 95931- 3528 May, [facility] [id number] [place] [address] 97468- 5316 May, [facility] [id number] [place] [address] 76820- 3462 Apr, [facility] [id number] [place] [address] 83769- 8452 Apr, [facility] [id number] [place] [address] 86426- 8831 Apr, [facility] [id number] [place] [address] 85030- 0383 Mar, [facility] [id number] [place] [address] 87573- 7051 Mar, Chronic pain syndrome G89.4 ; Type 2 diabetes mellitus with unspecified complications E11.8 ; FDC 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.4 ; Essential (primary) hypertension I10 ; Dyspepsia R10.13 ; Neuropathy G62.9 ; Mixed hyperlipidemia E78.2 ; Anxiety F41.9 and Insomnia, unspecified G47.00 [facility] [address] [place] [address] 53236- 4966 Mar, [facility] [id number] [place] [address] 04939- 7958 Mar, [facility] [id number] [place] [address] 96114- 9024 Feb, [facility] [id number] [place] [address] 80289- 6288 Feb, Chronic pain syndrome G89.4 ; Type 2 diabetes mellitus with unspecified complications E11.8 ; 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9 and Insomnia, unspecified G47.00 [facility] [id number] [place] [address] 37630- 5855 Jan, [facility] [id number] [place] [address] 18596- 6693 Jan, [facility] [id number] [place] [address] 06191- 2625 December, Chronic pain syndrome G89.4 ; Type 2 diabetes mellitus with unspecified complications E11.8 ; FDC 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.4 ; Essential (primary) hypertension I10 ; Dyspepsia R10.13 ; Neuropathy G62.9 ; Mixed hyperlipidemia E78.2 ; Anxiety F41.9 and Insomnia, unspecified G47.00 [facility] [id number] [place] [address] 85081- 4985 December, [place] [id number] [place] [address] 44148- 5332 Nov, [facility] [id number] [place] [address] 50094- 3559 Nov, [facility] [id number] [place] [address] 61550- 5067 Oct, Chronic pain syndrome G89.4 and Skin infection L08.9 [facility] [id number] [place] [address] 71256- 6231 Oct, [facility] [id number] [place] [address] 18040- 5955 Oct, [facility] [id number] [place] [address] 79422- 8950 Oct, [facility] [id number] [place] [address] 05135- 3111 Oct, [facility] [id number] [place] [address] 09252- 8203 Oct, [facility] [id number] [place] [address] 91831- 7443 Oct, [facility] [id number] [place] [address] 30018- 6141 Oct, Chronic pain syndrome G89.4 ; Type 2 diabetes mellitus with unspecified complications E11.8 ; FDC 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.4 ; Essential (primary) hypertension I10 ; Dyspepsia R10.13 ; Neuropathy G62.9 and Mixed hyperlipidemia E78.2 [facility] [address] [address]- 8559 Oct, [facility] [id number] [place] [address] 52271- 2493 Sep, [facility] [id number] [place] [address] 79753- 3764 Sep, [facility] [id number] [place] [address] 47274- 0314 Sep, Chronic pain syndrome G89.4 [facility] [address], [place] [address]- 4386 Aug, [facility] [id number] [place] [address] 07084- 2387 Aug, Chronic pain syndrome G89.4 ; Type 2 diabetes mellitus with unspecified complications E11.8 ; FDC 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.4 ; Essential (primary) hypertension I10 and Dyspepsia R10.13 [facility] [address] [place] [address] 63507- 8428 Aug, Rash R21 [facility] [facility] [address] 93895- 9917 Aug, [place] [facility] [id number] [place] [address] 02654- 9907 Aug, [id number] [place] [address] 21568- 6134 Aug, [place] [id number] [place] [address] 47064- 7920 Aug, Insomnia, unspecified G47.00 ; Chronic pain syndrome G89.4 and Anxiety F41.9 [place] [id number] [place] [address] 68291- 7223 Aug, Depression, major, recurrent, in partial remission F33.41 and Anxiety disorder, unspecified F41.9 [id number] [place] [address] 69975- 3367 Jul, [place] [id number] [place] [address] 00411- 6977 Jul, Chronic pain syndrome G89.4 ; Type 2 diabetes mellitus with unspecified complications E11.8 ; Gastro-esophageal reflux disease with esophagitis K21.0 ; 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.4 ; Mixed hyperlipidemia E78.2 ; Essential (primary) hypertension I10 ; Otalgia of both ears H92.03 and Alopecia L65.[address] [place] [address] 88363- 5037 Jul, [place] [id number] [place] [address] 34029- 6118 Jul, [facility] [id number] [place] [address] 26715- 7873 Jul, Anxiety F41.9 and Depressive disorder, not elsewhere classified 311 [facility] [id number] [place] [address] 18874- 7236 Jul, [facility] [id number] [place] [address] 61338- 2232 Jul, Insomnia, unspecified G47.00 ; Anxiety disorder, unspecified F41.9 and Major depressive disorder, single episode, unspecified F32.9 [place] [address] 08945- 6790 Jun, [facility] [address] 45653- 0001 Jun, Insomnia, unspecified G47.00 ; Generalized psoriasis L40.1 and Chronic pain syndrome G89.4 [facility] [id number] [place] [address] 12296- 1131 Jun, [facility] [address] 34977- 1264 Jun, [facility] [id number] [place] [address] 38879- 5287 Jun, Depressive disorder, not elsewhere classified 311 and Anxiety F41.9 [facility] [id number] [place] [address] 40014- 2894 Jun, Generalized psoriasis L40.1 [facility] [id number] [place] [address] 15505 -7903 Jun, Dermatitis L30.9 [facility] [address] 92561- 2299 May, Insomnia, unspecified G47.00 ; Chronic pain syndrome G89.4 and GERD (gastroesophageal reflux disease) K21.9 [facility] [address] 76117- 8642 May, Insomnia, unspecified G47.00 ; Anxiety disorder, unspecified F41.9 and Major depressive disorder, single episode, unspecified F32.9 [place] [address] 44299- 5633 May, Depressive disorder, not elsewhere classified 311 and Anxiety F41.[address] 29650- 5295 May, [address] 74268- 3241 May, Insomnia, unspecified G47.00 and Encounter for immunization Z23 [address] 65578- 0899 May, [address] 69391- 6719 May, Chronic pain syndrome G89.4 ; Mixed hyperlipidemia E78.2 ; Type 2 diabetes mellitus with unspecified complications E11.8 ; Essential ( primary) hypertension I10 ; Anxiety F41.9 ; Insomnia, unspecified G47.00 ; 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 M79.7 and 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.4 [place] [id number] [place] [address] 80143- 8162 Apr, [address] 12223- 0111 Apr, Dyspepsia 536.8 and Insomnia 780.[address] 32431- 4150 Apr, Other malaise and fatigue 780.[address] 76919- 2935 Apr, [address] 18304- 8308 Mar, Diabetes with neurological manifestations, type II or unspecified type, not stated as uncontrolled 250.60 ; Other chronic pain 338.29 ; Essential hypertension, benign 401.1 ; Anxiety state, unspecified 300.00 ; Insomnia 780.52 and Hyperlipidemia 272.4 [facility] [address] [address]- 1506 Mar, [facility] [address] [address]- 5865 Feb, [facility] [id number] [place] [address] 24796- 5299 Feb, [facility] [id number] [address]- 7915 Feb, [facility] [id number] [place] [address] 06809- 0936 Feb, [facility] [id number] [place] [address] 25265- 5860 Feb, [facility] [id number] [place] [address] 82019- 7036 Jan, Depressive disorder, not elsewhere classified 311 and Dyssomnia 780.56 [facility] [address] [address]- 6584 Jan, Diabetes with neurological manifestations, type II or unspecified type, not stated as uncontrolled 250.60 ; Other chronic pain 338.29 ; Essential hypertension, benign 401.1 ; Anxiety state, unspecified 300.00 ; Insomnia 780.52 and Hyperlipidemia 272.4 [facility] [address] [address]- 3421 Jan, [facility] [address] [address]- 8048 Jan, [facility] [id number] [address]- 6241 Jan, [facility] [address] [address]- 1981 Jan, [facility] [address] [address]- 7183 Jan, [facility] [address] [address]- 1324 Jan, [facility] [address] 0149 December, [facility] [address] [address]- 5[address] December, [facility] [id number] [place] [address]- [address] December, [facility] [id number] [place] [address] December, [facility] [id number] [place] [address] [id number]- [address] December, Anxiety state, unspecified 300.00 ; Other chronic pain 338.29 ; Diabetes with neurological manifestations, type II or unspecified type , not stated as uncontrolled 250.60 ; Essential hypertension, benign 401.1 ; Compression fracture of thoracic spine, non-traumatic 733.13 ; Wrist fracture, left 814.00 and Fall at home E888.9 [facility] [id number] [address] December, [facility] [id number] [address] December, [facility] [id number] [address] Nov, [facility] [id number] [address] Nov, [facility] [id number] [address] Nov, [facility] [id number] [address] Nov, [facility] [id number] [address] Oct, [facility] [place] [facility] [address] [id number] [place] [address] Oct, [facility] [place] [facility] [address] [id number] [place] [address] Oct, [facility] [place] [facility] [address] [id number] [place] [address] Oct, [facility] [place] [facility] [address] [id number] [place] [address] Oct, [facility] [place] [facility] [address] [id number] [place] [address] Oct, [facility] [place] [facility] [address] [id number] [place] [address] Oct, [facility] [place] [facility] [address] [id number] [place] [address] Oct, [facility] [place] [facility] [address] [id number] [place] [address] Sep, [facility] [place] [facility] [address] [id number] [place] [address] Sep, [facility] [facility] [facility] [address] [id number] [place] [address] Sep, [facility] [place] [facility] [address] [id number] [place] [address] Sep, [facility] [place] [facility] [address] [id number] [place] [address] Aug, [facility] [place] [facility] [address] [id number] [place] [address] Aug, [facility] [place] [facility] [address] [id number] [place] [address] Aug, [facility] [place] [facility] [address] [id number] [place] [address] Aug, [facility] [place] [facility] [address] [id number] [place] [address] Aug, [facility] [address] [facility] [id number] [place] [address] Aug, [facility] [address] [facility] [id number] [place] [address] Aug, [facility] [address] [facility] [id number] [place] [address] Aug, IMMUNIZATIONS No Known Immunizations SOCIAL HISTORY Never Assessed REASON FOR VISIT Lab (walk-in) PLAN OF CARE VITAL SIGNS MEDICATIONS Unknown Medications RESULTS Name Result Date Reference Range VITAMIN B12 2017-01-31 Vitamin B12 >2000 [id number] PROCEDURES Procedure Date Ordered Result Body Site LAB NOT BILLED BY [facility] January 31, 2017 VENEMI, ROUTINE* January 31, 2017 INSTRUCTIONS MEDICATIONS ADMINISTERED No Known Medications MEDICAL [...]
--- OUTSIDE RECORDS SUMMARY | 2018-01-14 12:17 | XMS REPORT ---
Author Author LANIE BRIONES [facility] Address [address] [place] [address] Care Team Providers Care Twister In Name Role Phone LANIE BRIONES Unavailable PROBLEMS Type Condition ICD9-CM Code NNS77-BJ Code Onset Dates Condition Status SNOMED Code Diagnosis Mixed hyperlipidemia E78.2 Active 210633779 Problem Generalized psoriasis L40.1 Active 591459220 Diagnosis Arthritis M19.90 Active 7278172 Problem Major depressive disorder, single episode, unspecified F32.9 Active 59729860 Problem Type 2 diabetes mellitus with unspecified complications E11.8 Active 860588930 Problem Neuropathy G62.9 Active 076185394 Problem Dyspepsia R10.13 Active 322720991 Problem Weight loss, unintentional R63.4 Active 127952519 Problem Type 2 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 Active 48605936 Condition Depressive disorder, not elsewhere classified 311 Active 55546565 Diagnosis Anxiety F41.9 Active 57507648 Diagnosis Gastro-esophageal reflux disease with esophagitis K21.0 Active 014203474 Diagnosis Chronic pain syndrome G89.4 Active 92891034 Problem assisted 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.4 Active 891965608 Problem Insomnia, unspecified G47.00 Active 924907557 Problem 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 M79.7 Active 40594115 Diagnosis Essential (primary) hypertension I10 Active 54551289 ALLERGIES No Information ENCOUNTERS Encounter Location Date Diagnosis [facility] [address] [address] 75[address] Nov, [facility] [address] [place] [address] 07953- 6377 Nov, [facility] [address] [address] 8714 Oct, Major depressive disorder, single episode, unspecified F32.9 [facility] [id number] [place] [address] 92697- 3417 Oct, Chronic pain syndrome G89.4 and Anxiety F41.9 [facility] [id number] [place] [address] 00648- 6836 Oct, [facility] [id number] [place] [address] 92708- 8991 Sep, Major depressive disorder, single episode, unspecified F32.9 and Chronic pain syndrome G89.4 [facility] [id number] [place] [address] 17243- 1158 Sep, [facility] [id number] [place] [address] 63171- 2190 Aug, Chronic pain syndrome G89.4 and Anxiety F41.9 [facility] [id number] [place] [address] 82751- 1424 Aug, Chronic pain syndrome G89.4 and Anxiety F41.9 [facility] [id number] [place] [address] 78213- 7373 Aug, [facility] [id number] [place] [address] 39106- 8763 Aug, Anxiety F41.9 and Chronic pain syndrome G89.4 [facility] [id number] [place] [address] 84228- 1196 Aug, [facility] [id number] [place] [address] 43981- 1505 Aug, Anxiety F41.9 ; Chronic pain syndrome G89.4 and Insomnia, unspecified G47.00 [facility] [id number] [place] [address] 48289- 9361 Jul, Chronic pain syndrome G89.4 ; Insomnia, unspecified G47.00 ; Type 2 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 ; long term 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.4 ; Anxiety F41.9 and Essential (primary) hypertension I10 [facility] [address] [address] 6483 Jul, [facility] [address] [address]- 6151 Jul, [facility] [address] [address]- 2572 Jul, [facility] [id number] [place] [address] 364720- 8102 Jul, Encounter for immunization Z23 [facility] [id number] [place] [address] 11294- 9467 Jun, [facility] [id number] [place] [address] 63633- 9503 Jun, [facility] [address] [place] [address] 34257- 2961 May, [facility] [address] [place] [address] 81880- 2220 May, [facility] [address] [address]- 3468 May, [facility] [address] [address]- 9438 Apr, Chronic pain syndrome G89.4 ; Anxiety F41.9 and Dyspepsia R10.13 [facility] [address] [address]- 5334 Apr, [facility] [address] [address]- 1629 Mar, Chronic pain syndrome G89.4 and Anxiety F41.9 [facility] [address] [address]- 2559 Mar, Chronic pain syndrome G89.4 [facility] [address] [address]- 9187 Feb, Chronic pain syndrome G89.4 and Anxiety F41.9 [facility] [address] [facility] [id number] [address] 1639 Feb, [facility] [address] [facility] [id number] [place] [address] 21284- 8598 Feb, Systolic murmur R01.1 [facility] [address] [facility] [id number] [address] 8626 Feb, [facility] [address] [facility] [id number] [place] [address] 57652- 3292 Feb, [facility] [address] [facility] [id number] [place] [address] 25756- 3521 Feb, Chronic pain syndrome G89.4 [facility] [id number] [place] [address] 01391- 8405 Jan, [facility] [address] [place] [address] 06946- 2695 Jan, Heart murmur on physical examination R01.1 ; Anxiety F41.9 and Chronic pain syndrome G89.4 [facility] [address] [facility] [id number] [place] [address] 86579- 1879 Jan, Anxiety F41.9 and Chronic pain syndrome G89.4 [facility] [id number] [place] [address] 11907- 6993 Jan, [facility] [address] [place] [address] 32373- 0399 Jan, Other malaise R53.81 [facility] [address] [facility] [id number] [address]- 5845 Jan, [facility] [id number] [place] [address] 92877- 9448 Jan, [facility] [id number] [address]- 4330 Jan, Chronic pain syndrome G89.4 [facility] [address] [place] [address] 11820- 6381 December, Other malaise R53.81 [facility] [address] 52110- 7313 December, Type 2 diabetes mellitus with unspecified complications E11.8 [facility] [id number] [place] [address] 39383- 5198 December, Anxiety F41.9 and Chronic pain syndrome G89.4 [facility] [address] 88285- 2705 December, Type 2 diabetes mellitus with unspecified complications E11.8 ; Anxiety F41.9 ; long term 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.4 and Chronic pain syndrome G89.4 [facility] [id number] [place] [address] 97425- 0718 Nov, [facility] [address] 43875- 1456 Nov, [facility] [address] 79222- 0421 Nov, Anxiety F41.9 and Chronic pain syndrome G89.4 [facility] [id number] [place] [address] 56457 -0732 Nov, Type 2 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 and Acute non-recurrent pansinusitis J01.40 [facility] [id number] [place] [address] 10550- 2793 Nov, Type 2 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 [facility] [id number] [place] [address] 93811- 6238 Nov, [facility] [address] 02882- 3168 Oct, Chronic pain syndrome G89.4 [facility] [id number] [place] [address] 05558- 6073 Oct, Chronic pain syndrome G89.4 and Anxiety F41.9 [facility] [id number] [place] [address] 72657- 4395 Oct, Chronic pain syndrome G89.4 [facility] [id number] [place] [address] 86675- 5759 Sep, Anxiety F41.9 and Chronic pain syndrome G89.4 [facility] [address] 03111- 4727 Aug, Chronic pain syndrome G89.4 ; Essential (primary) hypertension I10 ; Dyspepsia R10.13 ; Neuropathy G62.9 ; Mixed hyperlipidemia E78.2 ; Anxiety F41.9 ; Insomnia, unspecified G47.00 and Weight loss, unintentional R63.4 [facility] [id number] [place] [address] 19428- 8282 Aug, Chronic pain syndrome G89.4 [facility] [id number] [place] [address] 54160- 8653 Aug, Type 2 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 ; Chronic pain syndrome G89.4 ; assisted 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.4 and Wound, open, forearm, right, initial encounter S51.801A [facility] [id number] [place] [address] 08558- 8555 Jul, [facility] [id number] [place] [address] 24655- 3412 Jun, [facility] [id number] [place] [address] 33061- 6637 Jun, [facility] [address] 89955- 8364 Jun, Chronic pain syndrome G89.4 ; Type 2 diabetes mellitus with unspecified complications E11.8 ; assisted 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.4 ; Essential (primary) hypertension I10 ; Dyspepsia R10.13 ; Neuropathy G62.9 ; Mixed hyperlipidemia E78.2 ; Anxiety F41.9 ; Insomnia, unspecified G47.00 and Alteration in mobility due to weakness R53.1 [facility] [id number] [address]- 1511 May, [facility] [id number] [place] [address] 96437- 1742 May, [facility] [id number] [place] [address] 17091- 4700 May, [facility] [id number] [place] [address] 27070- 5636 May, [facility] [id number] [place] [address] 33285- 0294 Apr, [facility] [id number] [place] [address] 17414- 5839 Apr, [facility] [id number] [place] [address] 59126- 9856 Apr, [facility] [id number] [place] [address] 54187- 0360 Mar, [facility] [id number] [place] [address] 55208- 0639 Mar, Chronic pain syndrome G89.4 ; Type 2 diabetes mellitus with unspecified complications E11.8 ; assisted 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.4 ; Essential (primary) hypertension I10 ; Dyspepsia R10.13 ; Neuropathy G62.9 ; Mixed hyperlipidemia E78.2 ; Anxiety F41.9 and Insomnia, unspecified G47.00 [facility] [address] [place] [address] 65846- 5791 Mar, [facility] [id number] [place] [address] 09290- 2705 Mar, [facility] [id number] [place] [address] 08368- 4907 Feb, [facility] [id number] [place] [address] 97592- 7136 Feb, Chronic pain syndrome G89.4 ; Type 2 diabetes mellitus with unspecified complications E11.8 ; long term 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.4 ; Essential (primary) hypertension I10 ; Dyspepsia R10.13 ; Neuropathy G62.9 ; Mixed hyperlipidemia E78.2 ; Anxiety F41.9 and Insomnia, unspecified G47.00 [facility] [id number] [place] [address] 00602- 8193 Jan, [facility] [address] 15486- 9574 Jan, Chronic pain syndrome G89.4 ; Type 2 diabetes mellitus with unspecified complications E11.8 ; long term 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.4 ; Essential (primary) hypertension I10 ; Dyspepsia R10.13 ; Neuropathy G62.9 ; Mixed hyperlipidemia E78.2 ; Anxiety F41.9 and Insomnia, unspecified G47.00 [facility] [id number] [place] [address] 95768- 7798 Jan, [facility] [id number] [place] [address] 11673- 6010 Jan, [facility] [id number] [place] [address] 19649- 2508 December, Chronic pain syndrome G89.4 ; Type 2 diabetes mellitus with unspecified complications E11.8 ; assisted 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.4 ; Essential (primary) hypertension I10 ; Dyspepsia R10.13 ; Neuropathy G62.9 ; Mixed hyperlipidemia E78.2 ; Anxiety F41.9 and Insomnia, unspecified G47.00 [facility] [id number] [place] [address] 00307- 2499 December, [facility] [id number] [place] [address] 45287- 0570 Nov, [facility] [id number] [place] [address] 13314- 2775 Nov, [facility] [id number] [place] [address] 09239- 0175 Oct, Chronic pain syndrome G89.4 and Skin infection L08.9 [facility] [id number] [place] [address] 90476- 9007 Oct, [facility] [id number] [place] [address] 40783- 0011 Oct, [facility] [id number] [place] [address] 31618- 1954 Oct, [facility] [id number] [place] [address] 62771- 8765 Oct, [facility] [id number] [place] [address] 20085- 1136 Oct, [facility] [id number] [place] [address] 37552- 2328 Oct, [facility] [id number] [place] [address] 74077- 7480 Oct, Chronic pain syndrome G89.4 ; Type 2 diabetes mellitus with unspecified complications E11.8 ; assisted 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.4 ; Essential (primary) hypertension I10 ; Dyspepsia R10.13 ; Neuropathy G62.9 and Mixed hyperlipidemia E78.2 [facility] [address] [address]- 5981 Oct, [facility] [address] [place] [address] 88133- 8609 Sep, [facility] [address] [place] [address] 53995- 2217 Sep, [facility] [id number] [place] [address] 31370- 6083 Sep, Chronic pain syndrome G89.4 [facility] [address] [address]- 2976 Aug, [facility] [id number] [place] [address] 71023- 2238 Aug, Chronic pain syndrome G89.4 ; Type 2 diabetes mellitus with unspecified complications E11.8 ; assisted 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.4 ; Essential (primary) hypertension I10 and Dyspepsia R10.13 [facility] [id number] [place] [address] 94446- 4390 Aug, Rash R21 [facility] [address] 23645- 0610 Aug, [place] [facility] [id number] [place] [address] 66536- 1525 Aug, [place] [id number] [place] [address] 46530- 7394 Aug, [place] [id number] [place] [address] 30775- 3078 Aug, Insomnia, unspecified G47.00 ; Chronic pain syndrome G89.4 and Anxiety F41.9 [place] [id number] [place] [address] 18272- 3657 Aug, Depression, major, recurrent, in partial remission F33.41 and Anxiety disorder, unspecified F41.9 [place] [id number] [place] [address] 11129- 2639 Jul, [place] [id number] [place] [address] 93064- 3744 Jul, Chronic pain syndrome G89.4 ; Type 2 diabetes mellitus with unspecified complications E11.8 ; Gastro-esophageal reflux disease with esophagitis K21.0 ; long term 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.4 ; Mixed hyperlipidemia E78.2 ; Essential (primary) hypertension I10 ; Otalgia of both ears H92.03 and Alopecia L65.[address] [place] [address] 86644- 0462 Jul, [place] [id number] [place] [address] 10380- 6157 Jul, [facility] [id number] [place] [address] 34235- 5050 Jul, Anxiety F41.9 and Depressive disorder, not elsewhere classified 311 [facility] [id number] [place] [address] 91548- 4465 Jul, [facility] [id number] [place] [address] 47922- 6586 Jul, Insomnia, unspecified G47.00 ; Anxiety disorder, unspecified F41.9 and Major depressive disorder, single episode, unspecified F32.9 [place] [address] 05754- 3246 Jun, [facility] [address] 99456- 4557 Jun, Insomnia, unspecified G47.00 ; Generalized psoriasis L40.1 and Chronic pain syndrome G89.4 [facility] [id number] [place] [address] 00028- 5330 Jun, [facility] [address] 51871- 4991 Jun, [facility] [id number] [place] [address] 00211- 1548 Jun, Depressive disorder, not elsewhere classified 311 and Anxiety F41.9 [facility] [id number] [place] [address] 34635- 6058 Jun, Generalized psoriasis L40.1 [facility] [id number] [place] [address] 98052 -7378 Jun, Dermatitis L30.9 [facility] [address] 09968- 1053 May, Insomnia, unspecified G47.00 ; Chronic pain syndrome G89.4 and GERD (gastroesophageal reflux disease) K21.9 [facility] [address] 57002- 9130 May, Insomnia, unspecified G47.00 ; Anxiety disorder, unspecified F41.9 and Major depressive disorder, single episode, unspecified F32.9 [facility] [facility] [address] 78924- 2667 May, Depressive disorder, not elsewhere classified 311 and Anxiety F41.[address] 05121- 6599 May, [address] 44592- 9044 May, Insomnia, unspecified G47.00 and Encounter for immunization Z23 [address] 61752- 0043 May, [address] 86406- 6347 May, Chronic pain syndrome G89.4 ; Mixed hyperlipidemia E78.2 ; Type 2 diabetes mellitus with unspecified complications E11.8 ; Essential ( primary) hypertension I10 ; Anxiety F41.9 ; Insomnia, unspecified G47.00 ; 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 M79.7 and long term 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.4 [place] [id number] [place] [address] 84704- 4495 Apr, [address] 02911- 0149 Apr, Dyspepsia 536.8 and Insomnia 780.[address] 99471- 6906 Apr, Other malaise and fatigue 780.[address] 94017- 5335 Apr, [address] 84987- 8872 Mar, Diabetes with neurological manifestations, type II or unspecified type, not stated as uncontrolled 250.60 ; Other chronic pain 338.29 ; Essential hypertension, benign 401.1 ; Anxiety state, unspecified 300.00 ; Insomnia 780.52 and Hyperlipidemia 272.4 [facility] [address] [address]- 4400 Mar, [facility] [address] [address]- 1167 Feb, [facility] [address] [place] [address] 58271- 9362 Feb, [facility] [address] [address]- 3451 Feb, [facility] [id number] [place] [address] 27714- 5215 Feb, [facility] [id number] [place] [address] 94644- 0523 Feb, [facility] [id number] [place] [address] 41862- 5082 Jan, Depressive disorder, not elsewhere classified 311 and Dyssomnia 780.56 [facility] [address] [address]- 6562 Jan, Diabetes with neurological manifestations, type II or unspecified type, not stated as uncontrolled 250.60 ; Other chronic pain 338.29 ; Essential hypertension, benign 401.1 ; Anxiety state, unspecified 300.00 ; Insomnia 780.52 and Hyperlipidemia 272.4 [facility] [address] [address]- 4687 Jan, [facility] [address] [address]- 8784 Jan, [facility] [id number] [address]- 2499 Jan, [facility] [address] [address]- 9750 Jan, [facility] [address] [address]- 2308 Jan, [facility] [address] [address]- 6455 Jan, [facility] [address] 3909 December, [facility] [address] [address]- 6768 December, [facility] [id number] [place] [address] 210082- 2329 December, [facility] [id number] [place] [address] December, [facility] [id number] [place] [id number] December, Anxiety state, unspecified 300.00 ; Other chronic pain 338.29 ; Diabetes with neurological manifestations, type II or unspecified type , not stated as uncontrolled 250.60 ; Essential hypertension, benign 401.1 ; Compression fracture of thoracic spine, non-traumatic 733.13 ; Wrist fracture, left 814.00 and Fall at home E888.9 [facility] [address] [address] December, [facility] [address] [address] December, [facility] [address] [address] Nov, [facility] [address] [address] Nov, [facility] [address] [address] Nov, [facility] [address] [address] Nov, [facility] [address] [address] Oct, [facility] [place] [facility] [address] [id number] [place] [address] Oct, [facility] [place] [facility] [address] [id number] [place] [address] Oct, [facility] [place] [facility] [address] [id number] [place] [address] Oct, [facility] [place] [facility] [address] [id number] [place] [address]- [id number] Oct, [facility] [place] [facility] [address] [id number] [place] [address] Oct, [facility] [place] [facility] [address] [id number] [place] [address] Oct, [facility] [place] [facility] [address] [id number] [place] [address] Oct, [facility] [place] [facility] [address] [id number] [place] [address] Sep, [facility] [place] [facility] [address] [id number] [place] [address] Sep, [facility] [place] [facility] [address] [id number] [place] [address] Sep, [facility] [place] [facility] [address] [id number] [place] [address] Sep, [facility] [place] [facility] [address] [id number] [place] [address] Aug, [facility] [place] [facility] [address] [id number] [place] [address] Aug, [facility] [place] [facility] [address] [id number] [place] [address] Aug, [facility] [place] [facility] [address] [id number] [place] [address] Aug, [facility] [place] [facility] [address] [id number] [place] [address] Aug, [facility] [address] [facility] [id number] [place] [address] Aug, [facility] [address] [facility] [id number] [place] [address] Aug, [facility] [address] [facility] [id number] [place] [address] Aug, IMMUNIZATIONS No Known Immunizations SOCIAL HISTORY Never Assessed REASON FOR VISIT Requests return call PLAN OF CARE VITAL SIGNS MEDICATIONS Unknown [...]
--- OUTSIDE RECORDS SUMMARY | 2018-01-14 12:19 | XMS REPORT ---
Author Author LANIE BRIONES [facility] Address [address] [place] [address] Care Team Providers Care [employer] Name Role Phone LANIE BRIONES Unavailable PROBLEMS Type Condition ICD9-CM Code CSX80-QF Code Onset Dates Condition Status SNOMED Code Diagnosis Mixed hyperlipidemia E78.2 Active 985363002 Problem Generalized psoriasis L40.1 Active 610720195 Diagnosis Arthritis M19.90 Active 7051032 Problem Major depressive disorder, single episode, unspecified F32.9 Active 92455880 Problem Type 2 diabetes mellitus with unspecified complications E11.8 Active 191139922 Problem Neuropathy G62.9 Active 963658494 Problem Dyspepsia R10.13 Active 996544380 Problem Weight loss, unintentional R63.4 Active 960838673 Problem Type 2 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 Active 85222859 Condition Depressive disorder, not elsewhere classified 311 Active 03557227 Diagnosis Anxiety F41.9 Active 84575187 Diagnosis Gastro-esophageal reflux disease with esophagitis K21.0 Active 836812075 Diagnosis Chronic pain syndrome G89.4 Active 84031498 Problem jail 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.4 Active 539009334 Problem Insomnia, unspecified G47.00 Active 441754053 Problem 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 M79.7 Active 20411034 Diagnosis Essential (primary) hypertension I10 Active 91114410 ALLERGIES No Information ENCOUNTERS Encounter Location Date Diagnosis [facility] [address] [address] Nov, [facility] [id number] [place] [address] 37961- 0121 Nov, [facility] [address] [address] 7[address] Oct, Major depressive disorder, single episode, unspecified F32.9 [facility] [id number] [place] [address] 66232- 9652 Oct, Chronic pain syndrome G89.4 and Anxiety F41.9 [facility] [id number] [place] [address] 81479- 4906 Oct, [facility] [id number] [place] [address] 77297- 1974 Sep, Major depressive disorder, single episode, unspecified F32.9 and Chronic pain syndrome G89.4 [facility] [id number] [place] [address] 33139- 8449 Sep, [facility] [id number] [place] [address] 08304- 7662 Aug, Chronic pain syndrome G89.4 and Anxiety F41.9 [facility] [id number] [place] [address] 47697- 2819 Aug, Chronic pain syndrome G89.4 and Anxiety F41.9 [facility] [id number] [place] [address] 41430- 7844 Aug, [facility] [id number] [place] [address] 88404- 0357 Aug, Anxiety F41.9 and Chronic pain syndrome G89.4 [facility] [id number] [place] [address] 84126- 5258 Aug, [facility] [id number] [place] [address] 08161- 7857 Aug, Anxiety F41.9 ; Chronic pain syndrome G89.4 and Insomnia, unspecified G47.00 [facility] [id number] [place] [address] 70771- 0677 Jul, Chronic pain syndrome G89.4 ; Insomnia, unspecified G47.00 ; Type 2 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 ; 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 ; Anxiety F41.9 and Essential (primary) hypertension I10 [facility] [address] [address] Jul, [facility] [address] [address] 1599 Jul, [facility] [address] [address] 1257 Jul, [facility] [id number] [place] [address] 510558- 5133 Jul, Encounter for immunization Z23 [facility] [id number] [place] [address] 60422- 1375 Jun, [facility] [id number] [place] [address] 71446- 8611 Jun, [facility] [id number] [place] [address] 09082- 3036 May, [facility] [id number] [place] [address] 13241- 9863 May, [facility] [address], [place] [address] 8361 May, [facility] [address], [place] [address] 8840 Apr, Chronic pain syndrome G89.4 ; Anxiety F41.9 and Dyspepsia R10.13 [facility] [address], [place] [address] 9537 Apr, [facility] [address] [address]- 5685 Mar, Chronic pain syndrome G89.4 and Anxiety F41.9 [facility] [address], [place] [address] 1688 Mar, Chronic pain syndrome G89.4 [facility] [address], [place] [address] 2720 Feb, Chronic pain syndrome G89.4 and Anxiety F41.9 [facility] [address] [facility] [id number] [address] Feb, [facility] [address] [facility] [id number] [place] [address] 00793- 7182 Feb, Systolic murmur R01.1 [facility] [address] [facility] [id number], [place] [address] 1916 Feb, [facility] [address] [facility] [id number] [place] [address] 43823- 2093 Feb, [facility] [address] [facility] [id number] [place] [address] 77961- 7809 Feb, Chronic pain syndrome G89.4 [facility] [id number] [place] [address] 54071- 8799 Jan, [facility] [id number] [place] [address] 20088- 6234 Jan, Heart murmur on physical examination R01.1 ; Anxiety F41.9 and Chronic pain syndrome G89.4 [facility] [address] [facility] [id number] [place] [address] 51137- 7619 Jan, Anxiety F41.9 and Chronic pain syndrome G89.4 [facility] [id number] [place] [address] 29547- 0465 Jan, [facility] [id number] [place] [address] 77871- 0158 Jan, Other malaise R53.81 [facility] [address] [facility] [id number], [place] [address]- 1246 Jan, [facility] [id number] [place] [address] 60328- 2124 Jan, [facility] [id number] [address]- 6389 Jan, Chronic pain syndrome G89.4 [facility] [id number] [place] [address] 57328- 2201 December, Other malaise R53.81 [facility] [address] 54440- 5685 December, Type 2 diabetes mellitus with unspecified complications E11.8 [facility] [id number] [place] [address] 89840- 4619 December, Anxiety F41.9 and Chronic pain syndrome G89.4 [facility] [address] 51460- 8750 December, Type 2 diabetes mellitus with unspecified complications E11.8 ; Anxiety F41.9 ; 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 and Chronic pain syndrome G89.4 [facility] [id number] [place] [address] 69828- 6769 Nov, [facility] [address] 24565- 9108 Nov, [facility] [address] 33521- 0196 Nov, Anxiety F41.9 and Chronic pain syndrome G89.4 [facility] [id number] [place] [address] 79295 -1195 Nov, Type 2 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 and Acute non-recurrent pansinusitis J01.40 [facility] [id number] [place] [address] 21522- 5558 Nov, Type 2 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 [facility] [id number] [place] [address] 95405- 7502 Nov, [facility] [address] 29715- 1276 Oct, Chronic pain syndrome G89.4 [facility] [id number] [place] [address] 48761- 6757 Oct, Chronic pain syndrome G89.4 and Anxiety F41.9 [facility] [id number] [place] [address] 95676- 8648 Oct, Chronic pain syndrome G89.4 [facility] [id number] [place] [address] 77848- 3350 Sep, Anxiety F41.9 and Chronic pain syndrome G89.4 [facility] [address] 38063- 4597 Aug, Chronic pain syndrome G89.4 ; Essential (primary) hypertension I10 ; Dyspepsia R10.13 ; Neuropathy G62.9 ; Mixed hyperlipidemia E78.2 ; Anxiety F41.9 ; Insomnia, unspecified G47.00 and Weight loss, unintentional R63.4 [facility] [id number] [place] [address] 06129- 8350 Aug, Chronic pain syndrome G89.4 [facility] [id number] [place] [address] 14674- 3962 Aug, Type 2 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 ; Chronic pain syndrome G89.4 ; jail 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.4 and Wound, open, forearm, right, initial encounter S51.801A [facility] [id number] [place] [address] 63496- 0914 Jul, [facility] [id number] [place] [address] 54472- 0187 Jun, [facility] [id number] [place] [address] 45026- 7467 Jun, [facility] [address] 14635- 1784 Jun, Chronic pain syndrome G89.4 ; Type 2 diabetes mellitus with unspecified complications E11.8 ; jail 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.4 ; Essential (primary) hypertension I10 ; Dyspepsia R10.13 ; Neuropathy G62.9 ; Mixed hyperlipidemia E78.2 ; Anxiety F41.9 ; Insomnia, unspecified G47.00 and Alteration in mobility due to weakness R53.1 [facility] [id number] [address]- 6694 May, [facility] [id number] [place] [address] 28204- 0310 May, [facility] [id number] [place] [address] 62050- 3947 May, [facility] [id number] [place] [address] 67856- 9488 May, [facility] [id number] [place] [address] 03073- 5226 Apr, [facility] [id number] [place] [address] 88106- 1059 Apr, [facility] [id number] [place] [address] 80011- 2673 Apr, [facility] [id number] [place] [address] 14264- 1752 Mar, [facility] [id number] [place] [address] 86757- 1001 Mar, Chronic pain syndrome G89.4 ; Type 2 diabetes mellitus with unspecified complications E11.8 ; jail 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.4 ; Essential (primary) hypertension I10 ; Dyspepsia R10.13 ; Neuropathy G62.9 ; Mixed hyperlipidemia E78.2 ; Anxiety F41.9 and Insomnia, unspecified G47.00 [facility] [id number] [place] [address] 53370- 3114 Mar, [facility] [id number] [place] [address] 58960- 6407 Mar, [facility] [id number] [place] [address] 87682- 2168 Feb, [facility] [id number] [place] [address] 32462- 1462 Feb, Chronic pain syndrome G89.4 ; Type 2 diabetes mellitus with unspecified complications E11.8 ; 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 ; Essential (primary) hypertension I10 ; Dyspepsia R10.13 ; Neuropathy G62.9 ; Mixed hyperlipidemia E78.2 ; Anxiety F41.9 and Insomnia, unspecified G47.00 [facility] [id number] [place] [address] 52804- 4244 Jan, [facility] [address] 31705- 1839 Jan, Chronic pain syndrome G89.4 ; Type 2 diabetes mellitus with unspecified complications E11.8 ; 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 ; Essential (primary) hypertension I10 ; Dyspepsia R10.13 ; Neuropathy G62.9 ; Mixed hyperlipidemia E78.2 ; Anxiety F41.9 and Insomnia, unspecified G47.00 [facility] [id number] [place] [address] 68796- 1543 Jan, [facility] [id number] [place] [address] 37882- 8105 Jan, [facility] [id number] [place] [address] 83199- 5924 December, Chronic pain syndrome G89.4 ; Type 2 diabetes mellitus with unspecified complications E11.8 ; jail 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.4 ; Essential (primary) hypertension I10 ; Dyspepsia R10.13 ; Neuropathy G62.9 ; Mixed hyperlipidemia E78.2 ; Anxiety F41.9 and Insomnia, unspecified G47.00 [facility] [id number] [place] [address] 17718- 0248 December, [facility] [id number] [place] [address] 67698- 5314 Nov, [facility] [id number] [place] [address] 68283- 7034 Nov, [facility] [id number] [place] [address] 44071- 7230 Oct, Chronic pain syndrome G89.4 and Skin infection L08.9 [facility] [id number] [place] [address] 67378- 3576 Oct, [facility] [id number] [place] [address] 34046- 2240 Oct, [facility] [id number] [place] [address] 57189- 5018 Oct, [facility] [id number] [place] [address] 99563- 0254 Oct, [facility] [id number] [place] [address] 81753- 4307 Oct, [facility] [id number] [place] [address] 05826- 0308 Oct, [facility] [id number] [place] [address] 13017- 1930 Oct, Chronic pain syndrome G89.4 ; Type 2 diabetes mellitus with unspecified complications E11.8 ; jail 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.4 ; Essential (primary) hypertension I10 ; Dyspepsia R10.13 ; Neuropathy G62.9 and Mixed hyperlipidemia E78.2 [facility] [address], [place] [address]- 8627 Oct, [facility] [id number] [place] [address] 10758- 1226 Sep, [facility] [id number] [place] [address] 94281- 2303 Sep, [facility] [id number] [place] [address] 18539- 7779 Sep, Chronic pain syndrome G89.4 [facility] [address], [place] [address]- 1872 Aug, [facility] [id number] [place] [address] 37079- 3776 Aug, Chronic pain syndrome G89.4 ; Type 2 diabetes mellitus with unspecified complications E11.8 ; jail 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.4 ; Essential (primary) hypertension I10 and Dyspepsia R10.13 [facility] [id number] [place] [address] 95534- 8471 Aug, Rash R21 [facility] [address] 87849- 3803 Aug, [facility] [id number] [place] [address] 24125- 3652 Aug, [place] [id number] [place] [address] 72294- 7390 Aug, [place] [id number] [place] [address] 25721- 6836 Aug, Insomnia, unspecified G47.00 ; Chronic pain syndrome G89.4 and Anxiety F41.9 [place] [id number] [place] [address] 00680- 6265 Aug, Depression, major, recurrent, in partial remission F33.41 and Anxiety disorder, unspecified F41.9 [place] [id number] [place] [address] 73881- 6000 Jul, [place] [id number] [place] [address] 68205- 1750 Jul, Chronic pain syndrome G89.4 ; Type 2 diabetes mellitus with unspecified complications E11.8 ; Gastro-esophageal reflux disease with esophagitis K21.0 ; 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 ; Mixed hyperlipidemia E78.2 ; Essential (primary) hypertension I10 ; Otalgia of both ears H92.03 and Alopecia L65.[id number] [place] [address] 73328- 5378 Jul, [place] [id number] [place] [address] 46106- 2560 Jul, [facility] [id number] [place] [address] 64246- 3282 Jul, Anxiety F41.9 and Depressive disorder, not elsewhere classified 311 [facility] [id number] [place] [address] 61386- 5109 Jul, [facility] [id number] [place] [address] 95294- 0079 Jul, Insomnia, unspecified G47.00 ; Anxiety disorder, unspecified F41.9 and Major depressive disorder, single episode, unspecified F32.9 [place] [address] 04534- 9494 Jun, [facility] [address] 91329- 6376 Jun, Insomnia, unspecified G47.00 ; Generalized psoriasis L40.1 and Chronic pain syndrome G89.4 [facility] [id number] [place] [address] 30926- 8129 Jun, [facility] [address] 71357- 9646 Jun, [facility] [id number] [place] [address] 69898- 4536 Jun, Depressive disorder, not elsewhere classified 311 and Anxiety F41.9 [facility] [id number] [place] [address] 38684- 9696 Jun, Generalized psoriasis L40.1 [facility] [id number] [place] [address] 56973 -0046 Jun, Dermatitis L30.9 [facility] [address] 59731- 5060 May, Insomnia, unspecified G47.00 ; Chronic pain syndrome G89.4 and GERD (gastroesophageal reflux disease) K21.9 [facility] [address] 79564- 9357 May, Insomnia, unspecified G47.00 ; Anxiety disorder, unspecified F41.9 and Major depressive disorder, single episode, unspecified F32.9 [place] [address] 59713- 5400 May, Depressive disorder, not elsewhere classified 311 and Anxiety F41.[address] 69441- 7432 May, [address] 17230- 3430 May, Insomnia, unspecified G47.00 and Encounter for immunization Z23 [address] 66540- 3895 May, [address] 19866- 1409 May, Chronic pain syndrome G89.4 ; Mixed hyperlipidemia E78.2 ; Type 2 diabetes mellitus with unspecified complications E11.8 ; Essential ( primary) hypertension I10 ; Anxiety F41.9 ; Insomnia, unspecified G47.00 ; 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 M79.7 and 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 [place] [id number] [place] [address] 21938- 0114 Apr, [address] 04255- 6749 Apr, Dyspepsia 536.8 and Insomnia 780.[address] 71146- 5114 Apr, Other malaise and fatigue 780.[address] 62626- 8033 Apr, [address] 65063- 0404 Mar, Diabetes with neurological manifestations, type II or unspecified type, not stated as uncontrolled 250.60 ; Other chronic pain 338.29 ; Essential hypertension, benign 401.1 ; Anxiety state, unspecified 300.00 ; Insomnia 780.52 and Hyperlipidemia 272.4 [facility] [address] [address]- 8387 Mar, [facility] [address], [place] [address]- 7082 Feb, [facility] [id number] [place] [address] 51872- 0716 Feb, [facility] [id number] [address]- 4476 Feb, [facility] [id number] [place] [address] 03190- 1874 Feb, [facility] [id number] [place] [address] 86106- 9978 Feb, [facility] [id number] [place] [address] 55789- 3007 Jan, Depressive disorder, not elsewhere classified 311 and Dyssomnia 780.56 [facility] [address] [address]- 9422 Jan, Diabetes with neurological manifestations, type II or unspecified type, not stated as uncontrolled 250.60 ; Other chronic pain 338.29 ; Essential hypertension, benign 401.1 ; Anxiety state, unspecified 300.00 ; Insomnia 780.52 and Hyperlipidemia 272.4 [facility] [address] [address]- 7721 Jan, [facility] [address] [address]- 4365 Jan, [facility] [id number] [address]- 1855 Jan, [facility] [address] [address]- 5534 Jan, [facility] [address], [place] [address]- 8056 Jan, [facility] [address], [place] [address]- 0076 Jan, [facility] [address] 1406 December, [facility] [address], [place] [address]- 9074 December, [facility] [id number] [place] [address] 189443- 1893 December, [facility] [id number] [place] [address] 51231- 9861 December, [facility] [id number] [place] [address] 579441- 4196 December, Anxiety state, unspecified 300.00 ; Other chronic pain 338.29 ; Diabetes with neurological manifestations, type II or unspecified type , not stated as uncontrolled 250.60 ; Essential hypertension, benign 401.1 ; Compression fracture of thoracic spine, non-traumatic 733.13 ; Wrist fracture, left 814.00 and Fall at home E888.9 [facility] [address], [place] [address]- 2463 December, [facility] [address] [address]- 8372 December, [facility] [address], [place] [address]- 8306 Nov, [facility] [address] [address]- 3789 Nov, [facility] [address] [address] Nov, [facility] [id number] [address] Nov, [facility] [id number] [address] Oct, [facility] [place] [facility] [address] [id number] [place] [address] Oct, [facility] [place] [facility] [address] [id number] [place] [address] Oct, [facility] [place] [facility] [address] [id number] [place] [address] Oct, [facility] [place] [facility] [address] [id number] [place] [address] Oct, [facility] [place] [facility] [address] [id number] [place] [address] Oct, [facility] [place] [facility] [address] [id number] [place] [address] Oct, [facility] [place] [facility] [address] [id number] [place] [address] Oct, [facility] [place] [facility] [address] [id number] [place] [address] Sep, [facility] [place] [facility] [address] [id number] [place] [address] Sep, [facility] [place] [facility] [address] [id number] [place] [address] Sep, [facility] [place] [facility] [address] [id number] [place] [address] Sep, [facility] [place] [facility] [address] [id number] [place] [address] Aug, [facility] [place] [facility] [address] [id number] [place] [address] Aug, [facility] [place] [facility] [address] [id number] [place] [address] Aug, [facility] [facility] [facility] [address] [id number] [place] [address] Aug, [facility] [place] [facility] [address] [id number], [place] [address] Aug, [facility] [address] [facility] [id number] [place] [address] Aug, [facility] [address] [facility] [id number] [address] Aug, [facility] [address] [facility] [id number] [place] [address] Aug, IMMUNIZATIONS No Known Immunizations SOCIAL HISTORY Never Assessed REASON FOR VISIT Lyrica Request PLAN OF CARE VITAL SIGNS MEDICATIONS Medication Instructions Dosage Frequency Start Date End Date Duration Status Lyrica 50 MG Orally Twice a day 1 capsule 12h 28 days Active RESULTS No Results PROCEDURES No [...]
--- OUTSIDE RECORDS SUMMARY | 2018-01-14 12:21 | XMS REPORT ---
Author Author TERRENCE HEBERT Organization [facility] Address [address] 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 Name Role Phone EMILEE TERRENCE Unavailable PROBLEMS Type Condition ICD9-CM Code LTX97-EU Code Onset Dates Condition Status SNOMED Code Diagnosis Mixed hyperlipidemia E78.2 Active 635225588 Problem Generalized psoriasis L40.1 Active 154857216 Diagnosis Arthritis M19.90 Active 5881255 Problem Major depressive disorder, single episode, unspecified F32.9 Active 69654722 Problem Type 2 diabetes mellitus with unspecified complications E11.8 Active 705244304 Problem Neuropathy G62.9 Active 655412847 Problem Dyspepsia R10.13 Active 387894129 Problem Weight loss, unintentional R63.4 Active 414465141 Problem Type 2 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 Active 24500059 Condition Depressive disorder, not elsewhere classified 311 Active 91408704 Diagnosis Anxiety F41.9 Active 21355245 Diagnosis Gastro-esophageal reflux disease with esophagitis K21.0 Active 342979334 Diagnosis Chronic pain syndrome G89.4 Active 19392228 Problem 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 801794130 Problem Insomnia, unspecified G47.00 Active 323357460 Problem 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 M79.7 Active 08293258 Diagnosis Essential (primary) hypertension I10 Active 18328587 ALLERGIES Substance Reaction Event Type Date Status Halcion Unknown Drug Allergy Jan, Active Famotidine hair loss Drug Allergy Jan, Active Darvocet-N 100 hallucinations Drug Allergy Jan, Active Aspirin Abdominal pain Drug Allergy Jan, Active Tape Unknown Non Drug Allergy Jan, Active ENCOUNTERS Encounter Location Date Diagnosis [facility] [address] [facility] [id number] [address] Nov, [facility] [address] [facility] [id number] [address] Nov, [facility] [id number] [place] [address] 20205- 6736 Oct, Major depressive disorder, single episode, unspecified F32.9 [facility] [address] [place] [id number] [place] [address] 43857- 3843 Oct, Chronic pain syndrome G89.4 and Anxiety F41.9 [facility] [id number] [place] [address] 32606- 3258 Oct, [facility] [id number] [place] [address] 84342- 3162 Sep, Major depressive disorder, single episode, unspecified F32.9 and Chronic pain syndrome G89.4 [facility] [id number] [place] [address] 17072- 4229 Sep, [facility] [id number] [place] [address] 36643- 4497 Aug, Chronic pain syndrome G89.4 and Anxiety F41.9 [facility] [id number] [place] [address] 63518- 4185 Aug, Chronic pain syndrome G89.4 and Anxiety F41.9 [facility] [id number] [place] [address] 01613- 0414 Aug, [facility] [id number] [place] [address] 31420- 7842 Aug, Anxiety F41.9 and Chronic pain syndrome G89.4 [facility] [id number] [place] [address] 04806- 2193 Aug, [facility] [id number] [place] [address] 36554- 4226 Aug, Anxiety F41.9 ; Chronic pain syndrome G89.4 and Insomnia, unspecified G47.00 [facility] [id number] [place] [address] 47780- 7001 Jul, Chronic pain syndrome G89.4 ; Insomnia, unspecified G47.00 ; Type 2 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 ; 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 ; Anxiety F41.9 and Essential (primary) hypertension I10 [facility] [id number] [place] [address] 05265- 4641 Jul, [facility] [address] 63464- 2042 Jul, [facility] [address] 18460- 0212 Jul, [place] [address] 82235- 0487 Jul, Encounter for immunization Z23 [facility] [address] 97264- 3581 Jun, [facility] [address] 90940- 9607 Jun, [facility] [address] 44207- 4712 May, [facility] [address] 31338- 1187 May, [facility] [address] 79135- 1985 May, [facility] [address] 67941- 4750 Apr, Chronic pain syndrome G89.4 ; Anxiety F41.9 and Dyspepsia R10.13 [place] [address] 58396- 8845 Apr, [facility] [address] 04909- 8000 Mar, Chronic pain syndrome G89.4 and Anxiety F41.9 [facility] [address] 25760- 3907 Mar, Chronic pain syndrome G89.4 [facility] [address] [facility] [id number] [place] [address] 0345 Feb, Chronic pain syndrome G89.4 and Anxiety F41.9 [facility] [address] [facility] [id number] [address] 0546 Feb, [facility] [id number] [place] [address] 68040- 2247 Feb, Systolic murmur R01.1 [facility] [address] [facility] [id number] [address] 6519 Feb, [facility] [address] [facility] [id number] [place] [address] 49665- 9134 Feb, [facility] [address] [id number] [address] 2451 Feb, Chronic pain syndrome G89.4 [facility] [address] [facility] [id number] [address] 7210 Jan, [facility] [id number] [place] [address] 99366- 3989 Jan, Heart murmur on physical examination R01.1 ; Anxiety F41.9 and Chronic pain syndrome G89.4 [facility] [address] [address] [id number] [address] 1622 Jan, Anxiety F41.9 and Chronic pain syndrome G89.4 [facility] [address] [address] [id number] [address]- 2923 Jan, [facility] [address] [address] [id number] [address]- 8229 Jan, Other malaise R53.81 [facility] [address] [address] [id number] [address]- 6478 Jan, [facility] [address] [address]- 9841 Jan, [facility] [id number] [place] [address] 65347- 1957 Jan, Chronic pain syndrome G89.4 [facility] [id number] [place] [address] 75177- 2332 December, Other malaise R53.81 [facility] [id number] [place] [address] 90131- 3545 December, Type 2 diabetes mellitus with unspecified complications E11.8 [facility] [id number] [place] [address] 75969- 6367 December, Anxiety F41.9 and Chronic pain syndrome G89.4 [facility] [id number] [place] [address] 97112- 6626 December, Type 2 diabetes mellitus with unspecified complications E11.8 ; Anxiety F41.9 ; 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 and Chronic pain syndrome G89.4 [facility] [id number] [place] [address] 82416- 5120 Nov, [facility] [id number] [place] [address] 86223- 1333 Nov, [facility] [id number] [place] [address] 18448- 8614 Nov, Anxiety F41.9 and Chronic pain syndrome G89.4 [facility] [id number] [place] [address] 33926 -6588 Nov, Type 2 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 and Acute non-recurrent pansinusitis J01.40 [facility] [id number] [place] [address] 38329- 1220 Nov, Type 2 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 [facility] [id number] [place] [address] 26846- 9238 Nov, [facility] [id number] [place] [address] 24125- 8347 Oct, Chronic pain syndrome G89.4 [place] [id number] [place] [address] 10099- 6151 Oct, Chronic pain syndrome G89.4 and Anxiety F41.9 [place] [id number] [place] [address] 32422- 7830 Oct, Chronic pain syndrome G89.4 [place] [address] 88823- 3689 Sep, Anxiety F41.9 and Chronic pain syndrome G89.4 [place] [address] 41288- 9794 Aug, Chronic pain syndrome G89.4 ; Essential (primary) hypertension I10 ; Dyspepsia R10.13 ; Neuropathy G62.9 ; Mixed hyperlipidemia E78.2 ; Anxiety F41.9 ; Insomnia, unspecified G47.00 and Weight loss, unintentional R63.4 [place] [id number] [place] [address] 52505- 4069 Aug, Chronic pain syndrome G89.4 [place] [id number] [place] [address] 29471- 3840 Aug, Type 2 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 ; Chronic pain syndrome G89.4 ; 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 and Wound, open, forearm, right, initial encounter S51.801A [place] [id number] [place] [address] 99146- 9176 Jul, [place] [id number] [place] [address] 25950- 4700 Jun, [place] [address] 59199- 8652 Jun, [place] [id number] [place] [address] 77409- 4914 Jun, Chronic pain syndrome G89.4 ; Type 2 diabetes mellitus with unspecified complications E11.8 ; residential 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.4 ; Essential (primary) hypertension I10 ; Dyspepsia R10.13 ; Neuropathy G62.9 ; Mixed hyperlipidemia E78.2 ; Anxiety F41.9 ; Insomnia, unspecified G47.00 and Alteration in mobility due to weakness R53.1 [facility] [id number] [place] [address] 05121- 1926 May, [facility] [id number] [place] [address] 33952- 1804 May, [facility] [id number] [place] [address] 99456- 1519 May, [facility] [id number] [place] [address] 38901- 6465 May, [facility] [id number] [place] [address] 16464- 7014 Apr, [facility] [id number] [place] [address] 84363- 5240 Apr, [facility] [id number] [place] [address] 47838- 1707 Apr, [facility] [id number] [place] [address] 96072- 4208 Mar, [facility] [id number] [place] [address] 36276- 1777 Mar, Chronic pain syndrome G89.4 ; Type 2 diabetes mellitus with unspecified complications E11.8 ; residential 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.4 ; Essential (primary) hypertension I10 ; Dyspepsia R10.13 ; Neuropathy G62.9 ; Mixed hyperlipidemia E78.2 ; Anxiety F41.9 and Insomnia, unspecified G47.00 [facility] [id number] [place] [address] 94896- 9476 Mar, [facility] [id number] [place] [address] 96978- 2980 Mar, [place] [id number] [place] [address] 35848- 0652 Feb, [place] [id number] [place] [address] 01649- 1226 Feb, Chronic pain syndrome G89.4 ; Type 2 diabetes mellitus with unspecified complications E11.8 ; residential 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.4 ; Essential (primary) hypertension I10 ; Dyspepsia R10.13 ; Neuropathy G62.9 ; Mixed hyperlipidemia E78.2 ; Anxiety F41.9 and Insomnia, unspecified G47.00 [place] [id number] [place] [address] 93399- 8742 Jan, [place] [id number] [place] [address] 83668- 1844 Jan, Chronic pain syndrome G89.4 ; Type 2 diabetes mellitus with unspecified complications E11.8 ; 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 ; Essential (primary) hypertension I10 ; Dyspepsia R10.13 ; Neuropathy G62.9 ; Mixed hyperlipidemia E78.2 ; Anxiety F41.9 and Insomnia, unspecified G47.00 [place] [id number] [place] [address] 06402- 6511 Jan, [place] [id number] [place] [address] 42519- 8663 Jan, [place] [id number] [place] [address] 61418- 0038 December, Chronic pain syndrome G89.4 ; Type 2 diabetes mellitus with unspecified complications E11.8 ; 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 ; Essential (primary) hypertension I10 ; Dyspepsia R10.13 ; Neuropathy G62.9 ; Mixed hyperlipidemia E78.2 ; Anxiety F41.9 and Insomnia, unspecified G47.00 [place] [id number] [place] [address] 40046- 8467 December, [place] [id number] [place] [address] 13960- 8152 Nov, [facility] [address] [address]- 7147 Nov, [facility] [id number] [place] [address] 89830- 3039 Oct, Chronic pain syndrome G89.4 and Skin infection L08.9 [facility] [id number] [place] [address] 45499- 8587 Oct, [facility] [id number] [place] [address] 30019- 5660 Oct, [facility] [id number] [place] [address] 68144- 4292 Oct, [facility] [id number] [place] [address] 95966- 4568 Oct, [facility] [id number] [place] [address] 13684- 1125 Oct, [facility] [id number] [place] [address] 46863- 3872 Oct, [facility] [id number] [place] [address] 87876- 3620 Oct, Chronic pain syndrome G89.4 ; Type 2 diabetes mellitus with unspecified complications E11.8 ; 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 ; Essential (primary) hypertension I10 ; Dyspepsia R10.13 ; Neuropathy G62.9 and Mixed hyperlipidemia E78.2 [facility] [address] [address]- 1830 Oct, [facility] [id number] [place] [address] 28136- 6095 Sep, [facility] [id number] [place] [address] 11130- 6147 Sep, [facility] [id number] [place] [address] 59169- 2659 Sep, Chronic pain syndrome G89.4 [place] [address] [place] [address] 43309- 6277 Aug, [place] [id number] [place] [address] 75246- 5869 Aug, Chronic pain syndrome G89.4 ; Type 2 diabetes mellitus with unspecified complications E11.8 ; residential 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.4 ; Essential (primary) hypertension I10 and Dyspepsia R10.13 [place] [id number] [place] [address] 80703- 6110 Aug, Rash R21 [place] [id number] [place] [address] 07187- 3839 Aug, [place] [id number] [place] [address] 89389- 5686 Aug, [place] [id number] [place] [address] 61385- 0360 Aug, [place] [id number] [place] [address] 65295- 9037 Aug, Insomnia, unspecified G47.00 ; Chronic pain syndrome G89.4 and Anxiety F41.9 [place] [id number] [place] [address] 20108- 6199 Aug, Depression, major, recurrent, in partial remission F33.41 and Anxiety disorder, unspecified F41.9 [place] [address] [place] [address] 55034- 9934 Jul, [place] [id number] [place] [address] 92262- 6828 Jul, Chronic pain syndrome G89.4 ; Type 2 diabetes mellitus with unspecified complications E11.8 ; Gastro-esophageal reflux disease with esophagitis K21.0 ; residential 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.4 ; Mixed hyperlipidemia E78.2 ; Essential (primary) hypertension I10 ; Otalgia of both ears H92.03 and Alopecia L65.9 [place] [id number] [place] [address] 21447- 5808 Jul, [facility] [id number] [place] [address] 66571- 0830 Jul, [facility] [id number] [place] [address] 09279- 6964 Jul, Anxiety F41.9 and Depressive disorder, not elsewhere classified 311 [facility] [address] 715588- 0529 Jul, [facility] [address] [id number] [place] [address] 71534- 4540 Jul, Insomnia, unspecified G47.00 ; Anxiety disorder, unspecified F41.9 and Major depressive disorder, single episode, unspecified F32.9 [place] [id number] [place] [address] 71887- 3838 Jun, [facility] [id number] [place] [address] 43094- 6561 Jun, Insomnia, unspecified G47.00 ; Generalized psoriasis L40.1 and Chronic pain syndrome G89.4 [facility] [id number] [place] [address] 52734- 6642 Jun, [facility] [id number] [place] [address] 23124- 8852 Jun, [facility] [id number] [place] [address] 40731- 1139 Jun, Depressive disorder, not elsewhere classified 311 and Anxiety F41.9 [facility] [id number] [place] [address] 66611- 9029 Jun, Generalized psoriasis L40.1 [facility] [id number] [place] [address] 58336 -6765 Jun, Dermatitis L30.9 [facility] [id number] [place] [address] 53878- 1201 May, Insomnia, unspecified G47.00 ; Chronic pain syndrome G89.4 and GERD (gastroesophageal reflux disease) K21.[address] 27381- 8199 May, Insomnia, unspecified G47.00 ; Anxiety disorder, unspecified F41.9 and Major depressive disorder, single episode, unspecified F32.[address] 93636- 5041 May, Depressive disorder, not elsewhere classified 311 and Anxiety F41.[address] 25590- 9447 May, [address] 37018- 3594 May, Insomnia, unspecified G47.00 and Encounter for immunization Z23 [address] 54999- 8684 May, [address] 77393- 1765 May, Chronic pain syndrome G89.4 ; Mixed hyperlipidemia E78.2 ; Type 2 diabetes mellitus with unspecified complications E11.8 ; Essential ( primary) hypertension I10 ; Anxiety F41.9 ; Insomnia, unspecified G47.00 ; 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 M79.7 and 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 74276- 0109 Apr, [address] 21745- 7010 Apr, Dyspepsia 536.8 and Insomnia 780.[address] 07323- 9049 Apr, Other malaise and fatigue 780.[address] 91684- 3546 Apr, [facility] [address] [address]- 0445 Mar, Diabetes with neurological manifestations, type II or unspecified type, not stated as uncontrolled 250.60 ; Other chronic pain 338.29 ; Essential hypertension, benign 401.1 ; Anxiety state, unspecified 300.00 ; Insomnia 780.52 and Hyperlipidemia 272.4 [facility] [address] [address]- 4700 Mar, [facility] [id number] [place] [address] 21399- 6244 Feb, [facility] [id number] [place] [address] 32214- 0833 Feb, [facility] [id number] [place] [address] 06293- 8926 Feb, [facility] [id number] [place] [address] 93629- 5010 Feb, [facility] [id number] [place] [address] 38736- 4997 Feb, [facility] [id number] [place] [address] 80472- 0429 Jan, Depressive disorder, not elsewhere classified 311 and Dyssomnia 780.56 [facility] [address] [address]- 3580 Jan, Diabetes with neurological manifestations, type II or unspecified type, not stated as uncontrolled 250.60 ; Other chronic pain 338.29 ; Essential hypertension, benign 401.1 ; Anxiety state, unspecified 300.00 ; Insomnia 780.52 and Hyperlipidemia 272.4 [facility] [id number] [place] [address] 71078- 3329 Jan, [facility] [address] [address]- 9734 Jan, [facility] [id number] [address]- 1386 Jan, [facility] [address] [address]- 7199 Jan, [facility] [address] [address]- 0599 Jan, [facility] [address] [address]- 4229 Jan, [facility] [id number] [place] [address] 39458- 5838 December, [facility] [address] 6352 December, [facility] [id number] [place] [address] 20304- 1729 December, [facility] [id number] [address] December, [facility] [id number] [address] December, Anxiety state, unspecified 300.00 ; Other chronic pain 338.29 ; Diabetes with neurological manifestations, type II or unspecified type , not stated as uncontrolled 250.60 ; Essential hypertension, benign 401.1 ; Compression fracture of thoracic spine, non-traumatic 733.13 ; Wrist fracture, left 814.00 and Fall at home E888.9 [facility] [id number] [address] December, [facility] [id number] [address] December, [facility] [id number] [address] Nov, [facility] [id number] [address] Nov, [facility] [id number] [address] Nov, [facility] [address] [facility] [id number] [place] [address] 13 Nov, 2014 [facility] [place] [facility] [address] [id number] [place] [address] Oct, [facility] [place] [facility] [address] [id number] [place] [address] Oct, [facility] [place] [facility] [address] [id number] [place] [address] Oct, [facility] [place] [facility] [address] [id number] [place] [address] Oct, [facility] [place] [facility] [address] [id number] [place] [address] Oct, [facility] [place] [facility] [address] [id number] [place] [address] Oct, [facility] [place] [facility] [address] [id number] [place] [address] Oct, [facility] [place] [facility] [address] [id number] [place] [address] Oct, [facility] [place] [facility] [address] [id number] [place] [address] Sep, [facility] [place] [facility] [address] [id number] [place] [address] Sep, [facility] [place] [facility] [address] [id number] [place] [address] Sep, [facility] [place] [facility] [address] [id number] [place] [address] Sep, [facility] [place] [facility] [address] [id number] [place] [address] Aug, [facility] [place] [facility] [address] [id number] [place] [address] Aug, [facility] [place] [facility] [address] [id number] [place] [address] Aug, [facility] [address] [facility] [id number] [place] [address] Aug, [facility] [address] [facility] [id number] [place] [address] Aug, [facility] [address] [facility] [id number] [place] [address] Aug, [facility] [address] [facility] [id number] [place] [address] Aug, [facility] [address] [facility] [id number] [place] [address] Aug, IMMUNIZATIONS No Known Immunizations SOCIAL HISTORY Never Assessed REASON FOR VISIT Would like to discuss pain medication and disability paperwork [facility] PLAN OF CARE Activity Details Follow Up as schedule cassidy Stewart Reason: VITAL SIGNS Height 61.5 in 2017-02-07 Weight 153.8 lbs 2017-02-07 Temperature 98.5 degrees Fahrenheit 2017-02-07 Heart Rate 100 bpm 2017-02-07 Respiratory Rate 20 2017-02-07 BMI 28.59 kg/m2 2017-02-07 Blood pressure systolic 138 mmHg 2017-02-07 Blood pressure diastolic 82 mmHg 2017-02-07 MEDICATIONS Medication Instructions Dosage Frequency Start Date End Date Duration Status Fish Oil 500 mg take 2 Capsule by Oral route 1 time per day Active Artificial Tears by ophthalmic route Aug, Active Zofran ODT 4 MG Orally every 8 hrs prn 1 tablet on the tongue and allow to dissolve Active Levemir 100 UNIT/ML Subcutaneous 2 times a day 25 units 12h Active Temazepam 30 MG TAKE ONE CAPSULE BY MOUTH AT BEDTIME NEEDED Active Restoril 30 MG Orally Once a day at night 1 capsule at bedtime as needed Active Pravastatin Sodium 20 MG Orally Once a day 1 tablet 24h 90 Active Insulin Syringes (Disposable) 1 mL 3-4 TIMES DAILY DIRECTED DX 250.00 Active Lorazepam 2 MG Orally Once a day prn 1 tablet Active Hydrocodone-Acetaminophen 7.5-325 MG Orally 3 times a day- must last 28 days 1 tablet as needed Jan, Active Lyrica 50 MG Orally Twice a day 1 capsule 12h 28 days Active Pen [place] 31G X 6 MM as directed Active Ultra-Comfort Insulin Syringe 1 mL USE 3 TO 4 TIMES DAILY WITH INSULIN 25 Active Ondansetron 4 MG DISSOLVE ONE TABLET UNDER TONGUE EVERY 8 HOURS NEEDED 15 Active Bactroban 2 % Externally Three times a day 1 application to affected area 8h Aug, Active Levemir FlexTouch 100 UNIT/ML Subcutaneous 2 times a day Inject 25 units 12h Jan, Active NovoLog 100 UNIT/ML Subcutaneous 3 times a day with meals 13 units Active Lisinopril 5 MG Orally Once a day take 1 tablet by Oral route every 8 hours REPOSITORY 24h Active OxyContin 15 MG Orally every 12 hrs 1 tablet 12h Jan, 28 days Active Multivitamin Aug, Active B Complex-Vitamin B12 Aug, Active NovoLog Flexpen 100 UNIT/ML Subcutaneous 3 times a day Inject 13 units 8h Jan, Active RESULTS No Results PROCEDURES Procedure Date Ordered Result Body Site [facility] VISIT ESTABLISHED PATIENT February 07, 2017 INSTRUCTIONS MEDICATIONS ADMINISTERED No Known Medications [...]
--- OUTSIDE RECORDS SUMMARY | 2018-01-14 12:22 | XMS REPORT ---
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 Name Role Phone LANIE BRIONES Unavailable PROBLEMS Type Condition ICD9-CM Code [id number] Code Onset Dates Condition Status SNOMED Code Diagnosis Mixed hyperlipidemia E78.2 Active 367497259 Problem Generalized psoriasis L40.1 Active 529260418 Diagnosis Arthritis M19.90 Active 8695439 Problem Major depressive disorder, single episode, unspecified F32.9 Active 98527593 Problem Type 2 diabetes mellitus with unspecified complications E11.8 Active 614535404 Problem Neuropathy G62.9 Active 334205794 Problem Dyspepsia R10.13 Active 586958000 Problem Weight loss, unintentional R63.4 Active 544673075 Problem Type 2 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 Active 49586220 Condition Depressive disorder, not elsewhere classified 311 Active 92484345 Diagnosis Anxiety F41.9 Active 69865511 Diagnosis Gastro-esophageal reflux disease with esophagitis K21.0 Active 009547223 Diagnosis Chronic pain syndrome G89.4 Active 99551187 Problem MCC 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.4 Active 991919874 Problem Insomnia, unspecified G47.00 Active 085314575 Problem 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 M79.7 Active 14216866 Diagnosis Essential (primary) hypertension I10 Active 22446750 ALLERGIES No Information ENCOUNTERS Encounter Location Date Diagnosis [facility] [address] [address] 8534 Nov, [facility] [id number] [place] [address] 50927- 3060 Nov, [facility] [id number] [place] [address] 70710- 3419 Oct, Chronic pain syndrome G89.4 and Anxiety F41.9 [place] [address] [address]- 7808 Oct, Major depressive disorder, single episode, unspecified F32.9 [facility] [id number] [place] [address] 60734- 4836 Oct, Chronic pain syndrome G89.4 and Anxiety F41.9 [facility] [id number] [place] [address] 39960- 3416 Oct, [facility] [id number] [place] [address] 65041- 7014 Sep, Major depressive disorder, single episode, unspecified F32.9 and Chronic pain syndrome G89.4 [facility] [place] [id number] [place] [address] 06896- 4218 Sep, [facility] [id number] [place] [address] 58137- 9636 Aug, Chronic pain syndrome G89.4 and Anxiety F41.9 [place] [id number] [place] [address] 98672- 1169 Aug, Chronic pain syndrome G89.4 and Anxiety F41.9 [place] [id number] [place] [address] 78954- 6861 Aug, [facility] [address] [address]- 9438 Aug, Anxiety F41.9 and Chronic pain syndrome G89.4 [facility] [address] [address]- 6428 Aug, [facility] [id number] [place] [address] 81835- 6797 Aug, Anxiety F41.9 ; Chronic pain syndrome G89.4 and Insomnia, unspecified G47.00 [facility] [address] [address]- 6426 Jul, Chronic pain syndrome G89.4 ; Insomnia, unspecified G47.00 ; Type 2 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 ; MCC 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.4 ; Anxiety F41.9 and Essential (primary) hypertension I10 [facility] [id number] [place] [address] 10709- 9896 Jul, [facility] [address] 44722- 2919 Jul, [facility] [address] 38682- 8430 Jul, [facility] [address] 14985- 1849 Jul, Encounter for immunization Z23 [facility] [address] 11082- 6311 Jun, [facility] [address] 22830- 0930 Jun, [facility] [address] 19485- 3129 May, [facility] [address] 19594- 6945 May, [facility] [id number] [place] [address] 28503- 1785 May, [facility] [id number] [place] [address] 86504- 9909 Apr, Chronic pain syndrome G89.4 ; Anxiety F41.9 and Dyspepsia R10.13 [facility] [id number] [place] [address] 63884- 3463 Apr, [facility] [address] 26717- 0431 Mar, Chronic pain syndrome G89.4 and Anxiety F41.9 [facility] [id number] [place] [address] 72476- 6422 Mar, Chronic pain syndrome G89.4 [facility] [address] [facility] [id number] [address] 6019 Feb, Chronic pain syndrome G89.4 and Anxiety F41.9 [facility] [id number] [address]- 7997 Feb, [facility] [address] [address]- 7525 Feb, Systolic murmur R01.1 [facility] [address] [facility] [id number] [address]- 3394 Feb, [facility] [id number] [place] [address] 43940- 0561 Feb, [facility] [address] [address]- 9620 Feb, Chronic pain syndrome G89.4 [facility] [id number] [place] [address] 95282- 1623 Jan, [facility] [id number] [place] [address] 65276- 7544 Jan, Heart murmur on physical examination R01.1 ; Anxiety F41.9 and Chronic pain syndrome G89.4 [facility] [address] [address]- 0067 Jan, Anxiety F41.9 and Chronic pain syndrome G89.4 [facility] [address] [address]- 5457 Jan, [facility] [id number] [address]- 0459 Jan, Other malaise R53.81 [facility] [address] [address]- 7125 Jan, [facility] [address] [address]- 1228 Jan, [facility] [id number] [place] [address] 12322- 5912 Jan, Chronic pain syndrome G89.4 [facility] [id number] [place] [address] 44689- 1419 December, Other malaise R53.81 [facility] [id number] [place] [address] 17360- 7716 December, Type 2 diabetes mellitus with unspecified complications E11.8 [facility] [id number] [place] [address] 72531- 3806 December, Anxiety F41.9 and Chronic pain syndrome G89.4 [place] [id number] [place] [address] 36862- 3658 December, Type 2 diabetes mellitus with unspecified complications E11.8 ; Anxiety F41.9 ; 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 and Chronic pain syndrome G89.4 [place] [id number] [place] [address] 21489- 1338 Nov, [facility] [id number] [place] [address] 48899- 7074 Nov, [facility] [id number] [place] [address] 67007- 4081 Nov, Anxiety F41.9 and Chronic pain syndrome G89.4 [facility] [id number] [place] [address] 95740 -8467 Nov, Type 2 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 and Acute non-recurrent pansinusitis J01.40 [facility] [id number] [place] [address] 74922- 0960 Nov, Type 2 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 [facility] [id number] [place] [address] 62780- 7546 Nov, [facility] [id number] [place] [address] 11150- 0577 Oct, Chronic pain syndrome G89.4 [place] [id number] [place] [address] 01255- 8892 Oct, Chronic pain syndrome G89.4 and Anxiety F41.9 [place] [place] [id number] [place] [address] 98124- 1911 Oct, Chronic pain syndrome G89.4 [facility] [id number] [place] [address] 03805- 7714 Sep, Anxiety F41.9 and Chronic pain syndrome G89.4 [place] [id number] [place] [address] 55223- 6539 Aug, Chronic pain syndrome G89.4 ; Essential (primary) hypertension I10 ; Dyspepsia R10.13 ; Neuropathy G62.9 ; Mixed hyperlipidemia E78.2 ; Anxiety F41.9 ; Insomnia, unspecified G47.00 and Weight loss, unintentional R63.4 [place] [id number] [place] [address] 30557- 1203 Aug, Chronic pain syndrome G89.4 [facility] [id number] [place] [address] 63760- 9918 Aug, Type 2 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 ; Chronic pain syndrome G89.4 ; MCC 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.4 and Wound, open, forearm, right, initial encounter S51.801A [place] [id number] [place] [address] 64683- 0263 Jul, [facility] [place] [id number] [place] [address] 78788- 2489 Jun, [place] [id number] [place] [address] 61071- 4808 Jun, [place] [id number] [place] [address] 52733- 9275 Jun, Chronic pain syndrome G89.4 ; Type 2 diabetes mellitus with unspecified complications E11.8 ; MCC 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.4 ; Essential (primary) hypertension I10 ; Dyspepsia R10.13 ; Neuropathy G62.9 ; Mixed hyperlipidemia E78.2 ; Anxiety F41.9 ; Insomnia, unspecified G47.00 and Alteration in mobility due to weakness R53.1 [facility] [id number] [place] [address] 30117- 6580 May, [facility] [id number] [place] [address] 56728- 2813 May, [facility] [id number] [place] [address] 69857- 9166 May, [facility] [address] 37342- 9770 May, [facility] [id number] [place] [address] 59257- 5911 Apr, [facility] [address] 39436- 0109 Apr, [facility] [id number] [place] [address] 64711- 7109 Apr, [facility] [id number] [place] [address] 32667- 5445 Mar, [facility] [id number] [place] [address] 07127- 0435 Mar, Chronic pain syndrome G89.4 ; Type 2 diabetes mellitus with unspecified complications E11.8 ; 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 ; Essential (primary) hypertension I10 ; Dyspepsia R10.13 ; Neuropathy G62.9 ; Mixed hyperlipidemia E78.2 ; Anxiety F41.9 and Insomnia, unspecified G47.00 [facility] [id number] [place] [address] 20781- 1863 Mar, [facility] [id number] [place] [address] 64771- 6424 Mar, [facility] [address] [place] [address]- 2143 Feb, [place] [id number] [place] [address] 73738- 2281 Feb, Chronic pain syndrome G89.4 ; Type 2 diabetes mellitus with unspecified complications E11.8 ; 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 ; Essential (primary) hypertension I10 ; Dyspepsia R10.13 ; Neuropathy G62.9 ; Mixed hyperlipidemia E78.2 ; Anxiety F41.9 and Insomnia, unspecified G47.00 [place] [id number] [place] [address] 32100- 1799 Jan, [place] [address] 50929- 7573 Jan, Chronic pain syndrome G89.4 ; Type 2 diabetes mellitus with unspecified complications E11.8 ; MCC 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.4 ; Essential (primary) hypertension I10 ; Dyspepsia R10.13 ; Neuropathy G62.9 ; Mixed hyperlipidemia E78.2 ; Anxiety F41.9 and Insomnia, unspecified G47.00 [place] [id number] [place] [address] 06648- 0021 Jan, [place] [id number] [place] [address] 24296- 7701 Jan, [place] [id number] [place] [address] 05722- 7005 December, Chronic pain syndrome G89.4 ; Type 2 diabetes mellitus with unspecified complications E11.8 ; 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 ; Essential (primary) hypertension I10 ; Dyspepsia R10.13 ; Neuropathy G62.9 ; Mixed hyperlipidemia E78.2 ; Anxiety F41.9 and Insomnia, unspecified G47.00 [place] [id number] [place] [address] 90537- 0840 December, [place] [id number] [place] [address] 59858- 2699 Nov, [place] [address] [address]- 4292 Nov, [facility] [address] [address]- 3425 Oct, Chronic pain syndrome G89.4 and Skin infection L08.9 [facility] [address] [address]- 4356 Oct, [facility] [id number] [place] [address] 97694- 6625 Oct, [facility] [address] [address]- 7716 Oct, [facility] [id number] [place] [address] 84741- 2624 Oct, [facility] [id number] [place] [address] 02072- 5995 Oct, [facility] [id number] [place] [address] 62178- 8892 Oct, [facility] [address] [place] [address] 98360- 0731 Oct, Chronic pain syndrome G89.4 ; Type 2 diabetes mellitus with unspecified complications E11.8 ; 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 ; Essential (primary) hypertension I10 ; Dyspepsia R10.13 ; Neuropathy G62.9 and Mixed hyperlipidemia E78.2 [facility] [address] [address]- 3476 Oct, [facility] [address] [address]- 0680 Sep, [facility] [address] [address]- 1146 Sep, [facility] [address] [address]- 7660 Sep, Chronic pain syndrome G89.4 [place] [id number] [place] [address] 08029- 9028 Aug, [place] [id number] [place] [address] 83473- 5686 Aug, Chronic pain syndrome G89.4 ; Type 2 diabetes mellitus with unspecified complications E11.8 ; 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 ; Essential (primary) hypertension I10 and Dyspepsia R10.13 [place] [id number] [place] [address] 39865- 7442 Aug, Rash R21 [address] 25523- 2659 Aug, [place] [address] 46875- 4460 Aug, [address] 47736- 2709 Aug, [place] [id number] [place] [address] 39012- 6796 Aug, Insomnia, unspecified G47.00 ; Chronic pain syndrome G89.4 and Anxiety F41.9 [place] [id number] [place] [address] 26851- 1320 Aug, Depression, major, recurrent, in partial remission F33.41 and Anxiety disorder, unspecified F41.9 [place] [id number] [place] [address] 19621- 5518 Jul, [place] [id number] [place] [address] 34176- 8090 Jul, Chronic pain syndrome G89.4 ; Type 2 diabetes mellitus with unspecified complications E11.8 ; Gastro-esophageal reflux disease with esophagitis K21.0 ; MCC 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.4 ; Mixed hyperlipidemia E78.2 ; Essential (primary) hypertension I10 ; Otalgia of both ears H92.03 and Alopecia L65.9 [place] [id number] [place] [address] 57651- 3439 Jul, [facility] [address] 23545- 9488 Jul, [facility] [address] 904887- 3168 Jul, Anxiety F41.9 and Depressive disorder, not elsewhere classified 311 [facility] [address] 148374- 1987 Jul, [facility] [address] 04619- 5710 Jul, Insomnia, unspecified G47.00 ; Anxiety disorder, unspecified F41.9 and Major depressive disorder, single episode, unspecified F32.9 [place] [address] 52558- 9378 Jun, [facility] [address] 40390- 0545 Jun, Insomnia, unspecified G47.00 ; Generalized psoriasis L40.1 and Chronic pain syndrome G89.4 [place] [address] 94142- 6901 Jun, [facility] [id number] [place] [address] 50974- 7045 Jun, [facility] [address] 88243- 7399 Jun, Depressive disorder, not elsewhere classified 311 and Anxiety F41.9 [facility] [id number] [place] [address] 34602- 5102 Jun, Generalized psoriasis L40.1 [facility] [id number] [place] [address] 44778 -4583 Jun, Dermatitis L30.9 [facility] [id number] [place] [address] 39622- 8465 May, Insomnia, unspecified G47.00 ; Chronic pain syndrome G89.4 and GERD (gastroesophageal reflux disease) K21.9 [place] [id number] [place] [address] 12390- 8478 May, Insomnia, unspecified G47.00 ; Anxiety disorder, unspecified F41.9 and Major depressive disorder, single episode, unspecified F32.[address] 83167- 1862 May, Depressive disorder, not elsewhere classified 311 and Anxiety F41.[address] 66122- 3596 May, [address] 26851- 2539 May, Encounter for immunization Z23 and Insomnia, unspecified G47.[address] 02415- 0347 May, [address] 12457- 4198 May, Chronic pain syndrome G89.4 ; Mixed hyperlipidemia E78.2 ; Type 2 diabetes mellitus with unspecified complications E11.8 ; Essential ( primary) hypertension I10 ; Anxiety F41.9 ; Insomnia, unspecified G47.00 ; 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 M79.7 and 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 03985- 6557 Apr, [address] 30473- 3890 Apr, Dyspepsia 536.8 and Insomnia 780.[address] 88791- 0086 Apr, Other malaise and fatigue 780.[address] 28441- 7692 Apr, [address] [place] [address]- 5695 Mar, Diabetes with neurological manifestations, type II or unspecified type, not stated as uncontrolled 250.60 ; Other chronic pain 338.29 ; Essential hypertension, benign 401.1 ; Anxiety state, unspecified 300.00 ; Insomnia 780.52 and Hyperlipidemia 272.4 [facility] [address] [address]- 0609 Mar, [facility] [id number] [place] [address] 92758- 6838 Feb, [facility] [id number] [place] [address] 78293- 6723 Feb, [facility] [id number] [place] [address] 14229- 5800 Feb, [facility] [id number] [place] [address] 15950- 3856 Feb, [facility] [id number] [place] [address] 24228- 5995 Feb, [facility] [address] [place] [address] 97048- 3736 Jan, Depressive disorder, not elsewhere classified 311 and Dyssomnia 780.56 [facility] [address] [address]- 4321 Jan, Diabetes with neurological manifestations, type II or unspecified type, not stated as uncontrolled 250.60 ; Other chronic pain 338.29 ; Essential hypertension, benign 401.1 ; Anxiety state, unspecified 300.00 ; Insomnia 780.52 and Hyperlipidemia 272.4 [facility] [address] [address]- 2857 Jan, [facility] [id number] [place] [address] 90794- 3614 Jan, [facility] [address] [address]- 0521 Jan, [facility] [address] [address]- 9195 Jan, [facility] [address] [address]- 7768 Jan, [facility] [address] [address]- 9096 Jan, [facility] [id number] [place] [address] 14704- 1375 December, [facility] [id number] [place] [address] 84866- 8543 December, [facility] [id number] [place] [address] 941106- 2188 December, [facility] [id number] [place] [address] 41207- 3489 December, [facility] [id number] [place] [address] 06546- 7351 December, Anxiety state, unspecified 300.00 ; Other chronic pain 338.29 ; Diabetes with neurological manifestations, type II or unspecified type , not stated as uncontrolled 250.60 ; Essential hypertension, benign 401.1 ; Compression fracture of thoracic spine, non-traumatic 733.13 ; Wrist fracture, left 814.00 and Fall at home E888.9 [facility] [address] [address]- 1850 December, [facility] [address] [address]- 4116 December, [facility] [address] [address]- 8234 Nov, [facility] [address] [address]- 3394 Nov, [facility] [address] [address]- 6177 Nov, [facility] [address] [address]- 8467 Nov, [facility] [place] [facility] [address] [id number] [place] [address]- 1854 Oct, [facility] [place] [facility] [address] [id number] [place] [address] Oct, [facility] [place] [facility] [address] [id number] [place] [address] Oct, [facility] [place] [facility] [address] [id number] [place] [address] Oct, [facility] [place] [facility] [address] [id number] [place] [address] Oct, [facility] [place] [facility] [address] [id number] [place] [address] Oct, [facility] [place] [facility] [address] [facility] [id number] [place] [address] Oct, [facility] [place] [facility] [address] [facility] [id number] [place] [address] Oct, [facility] [place] [facility] [address] [id number] [place] [address] Sep, [facility] [place] [facility] [address] [facility] [id number] [place] [address] Sep, [facility] [place] [facility] [address] [facility] [id number] [address] Sep, [facility] [place] [facility] [address] [facility] [id number] [place] [address] Sep, [facility] [place] [facility] [address] [id number] [place] [address] Aug, [facility] [place] [facility] [address] [id number] [place] [address]- [address] Aug, [facility] [address] [facility] [id number] [address] Aug, [facility] [address] [facility] [id number] [place] [id number] Aug, [facility] [address] [facility] [id number] [place] [address] Aug, [facility] [address] [facility] [id number] [place] [address] Aug, [facility] [address] [facility] [id number] [place] [address] Aug, [facility] [address] [facility] [id number] [place] [address] Aug, IMMUNIZATIONS No Known Immunizations SOCIAL HISTORY Never Assessed REASON FOR VISIT Systolic Murmur PLAN OF CARE VITAL SIGNS MEDICATIONS Unknown [...]
--- OUTSIDE RECORDS SUMMARY | 2018-01-14 12:23 | XMS REPORT ---
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 Name Role Phone LANIE BRIONES Unavailable PROBLEMS Type Condition ICD9-CM Code [id number] Code Onset Dates Condition Status SNOMED Code Diagnosis Essential (primary) hypertension I10 Active 84454698 Problem Type 2 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 Active 07114989 Problem Generalized psoriasis L40.1 Active 697468188 Problem Anxiety state, unspecified F41.1 Active 687067590 Problem Depression, unspecified depression type F32.9 Active 72725616 Problem Systolic murmur R01.1 Active 72143232 Problem Major depressive disorder, single episode, unspecified F32.9 Active 42371057 Problem Mild neurocognitive disorder G31.84 Active 005792126 Problem Recurrent major depressive disorder, in partial remission F33.41 Active 24931567 Diagnosis Anxiety F41.9 Active 88944381 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 857550128 Diagnosis Chronic pain syndrome G89.4 Active 60490436 Problem Insomnia, unspecified G47.00 Active 503600442 Problem 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 M79.7 Active 71899317 Diagnosis Arthritis M19.90 Active 0352664 Diagnosis Gastro-esophageal reflux disease with esophagitis K21.0 Active 267591790 Diagnosis Mixed hyperlipidemia E78.2 Active [id number] ALLERGIES No Information ENCOUNTERS Encounter Location Date Diagnosis [facility] [id number], [place] [address] Jan, [facility] [id number] [place] [address] 20802- 7523 Jan, Mild neurocognitive disorder G31.84 ; Depression, unspecified depression type F32.9 and Anxiety state, unspecified F41.1 [facility] [id number] [place] [address] 62383- 3354 December, Chronic pain syndrome G89.4 ; Type 2 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 ; Systolic murmur R01.1 ; Mixed hyperlipidemia E78.2 ; Anxiety F41.9 ; Essential (primary) hypertension I10 ; Gastro- esophageal reflux disease with esophagitis K21.0 ; Insomnia, unspecified G47.00 ; assisted 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.4 ; 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 M79.7 ; Generalized psoriasis L40.1 and Recurrent major depressive disorder, in partial remission F33.41 [place] [address] 6[address]96- 6797 December, Systolic murmur R01.1 [place] [address] 53368- 1438 December, [place] [address] 35663- 2979 December, Chronic pain syndrome G89.4 and Opioid overdose, accidental or unintentional, initial encounter T40.2X1A [place] [address] 50601- 8151 December, [place] [address] 58164- 1303 Nov, [place] [address] 69030- 1912 Nov, [place] [address] 03166- 4843 Nov, Type 2 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 ; Essential (primary) hypertension I10 ; Chronic pain syndrome G89.4 and Arthritis M19.90 [place] [address] 12204- 1873 Nov, Major depressive disorder, single episode, unspecified F32.9 and Chronic pain syndrome G89.4 [place] [address] 37205- 2188 Nov, Chronic pain syndrome G89.4 [facility] [id number] [place] [address] 68017- 7386 Oct, Chronic pain syndrome G89.4 and Anxiety F41.9 [facility] [id number] [place] [address] 23056- 0736 Oct, Major depressive disorder, single episode, unspecified F32.9 [facility] [id number] [place] [address] 74715- 9146 Oct, Chronic pain syndrome G89.4 and Anxiety F41.9 [facility] [id number] [place] [address] 08359- 7116 Oct, [facility] [id number] [place] [address] 05996- 4226 Sep, Major depressive disorder, single episode, unspecified F32.9 and Chronic pain syndrome G89.4 [facility] [id number] [place] [address] 95226- 4716 Sep, [facility] [id number] [place] [address] 46915- 9233 Aug, Chronic pain syndrome G89.4 and Anxiety F41.9 [facility] [id number] [place] [address] 30751- 9026 Aug, Chronic pain syndrome G89.4 and Anxiety F41.9 [facility] [id number] [place] [address] 46035- 4246 Aug, [facility] [id number] [place] [address] 85066- 5906 Aug, Anxiety F41.9 and Chronic pain syndrome G89.4 [facility] [id number] [place] [address] 12073- 2286 Aug, [facility] [id number] [place] [address] 82398- 9326 Aug, Anxiety F41.9 ; Chronic pain syndrome G89.4 and Insomnia, unspecified G47.00 [facility] [id number] [place] [address] 36235- 1072 Jul, Chronic pain syndrome G89.4 ; Insomnia, unspecified G47.00 ; Type 2 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 ; 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 ; Anxiety F41.9 and Essential (primary) hypertension I10 [facility] [address] 00821- 9993 Jul, [facility] [address] 10076- 7181 Jul, [facility] [address] 16753- 7985 Jul, [facility] [address] 01436- 2307 Jul, Encounter for immunization Z23 [facility] [address] 56533- 8251 Jun, [facility] [address] 15138- 8814 Jun, [place] [address] 29616- 7503 May, [facility] [id number] [place] [address] 93042- 1023 May, [facility] [id number] [place] [address] 77785- 8064 May, [facility] [id number] [place] [address] 71585- 5854 Apr, Chronic pain syndrome G89.4 ; Anxiety F41.9 and Dyspepsia R10.13 [facility] [id number] [place] [address] 69018- 4025 Apr, [facility] [address] 05756- 4230 Mar, Chronic pain syndrome G89.4 and Anxiety F41.9 [facility] [id number] [place] [address] 00084- 9383 Mar, Chronic pain syndrome G89.4 [facility] [id number] [place] [address] 11420- 9866 Feb, Chronic pain syndrome G89.4 and Anxiety F41.9 [facility] [id number] [place] [address] 11210- 4875 Feb, [facility] [id number] [place] [address] 29716- 7025 Feb, Systolic murmur R01.1 [facility] [id number] [place] [address] 47153- 2731 Feb, [facility] [id number] [place] [address] 36463- 0655 Feb, [facility] [id number] [place] [address] 27738- 1294 Feb, Chronic pain syndrome G89.4 [facility] [id number] [place] [address] 06510- 2240 Jan, [facility] [id number] [place] [address] 95912- 5682 Jan, Heart murmur on physical examination R01.1 ; Anxiety F41.9 and Chronic pain syndrome G89.4 [facility] [id number] [place] [address] 16591- 3539 Jan, Anxiety F41.9 and Chronic pain syndrome G89.4 [facility] [id number] [place] [address] 96336- 5334 Jan, [facility] [id number] [place] [address] 95609- 0029 Jan, Other malaise R53.81 [facility] [id number] [place] [address] 08258- 1961 Jan, [facility] [id number] [place] [address] 48229- 8887 Jan, [facility] [id number] [place] [address] 87354- 6607 Jan, Chronic pain syndrome G89.4 [facility] [id number] [place] [address] 57443- 3435 December, Other malaise R53.81 [facility] [id number] [place] [address] 56711- 4342 December, Type 2 diabetes mellitus with unspecified complications E11.8 [place] [id number] [place] [address] 62579- 0684 December, Anxiety F41.9 and Chronic pain syndrome G89.4 [place] [id number] [place] [address] 76578- 8738 December, Type 2 diabetes mellitus with unspecified complications E11.8 ; Anxiety F41.9 ; assisted 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.4 and Chronic pain syndrome G89.4 [place] [id number] [place] [address] 21556- 9311 Nov, [facility] [id number] [place] [address] 40048- 3337 Nov, [facility] [id number] [place] [address] 02684- 1259 Nov, Anxiety F41.9 and Chronic pain syndrome G89.4 [facility] [id number] [place] [address] 91854 -5882 Nov, Type 2 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 and Acute non-recurrent pansinusitis J01.40 [facility] [id number] [place] [address] 62471- 8067 Nov, Type 2 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 [facility] [address] [place] [address]- 5096 Nov, [place] [address] 09806- 9258 Oct, Chronic pain syndrome G89.4 [place] [address] 80792- 7745 Oct, Chronic pain syndrome G89.4 and Anxiety F41.9 [place] [address] 86692- 5602 Oct, Chronic pain syndrome G89.4 [place] [address] 06035- 1487 Sep, Anxiety F41.9 and Chronic pain syndrome G89.4 [place] [address] 59211- 1585 Aug, Chronic pain syndrome G89.4 ; Essential (primary) hypertension I10 ; Dyspepsia R10.13 ; Neuropathy G62.9 ; Mixed hyperlipidemia E78.2 ; Anxiety F41.9 ; Insomnia, unspecified G47.00 and Weight loss, unintentional R63.4 [place] [address] 82156- 7592 Aug, Chronic pain syndrome G89.4 [place] [id number] [place] [address] 31938- 0615 Aug, Type 2 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 ; Chronic pain syndrome G89.4 ; 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 and Wound, open, forearm, right, initial encounter S51.801A [place] [address] 67790- 8150 Jul, [place] [address] 10683- 5264 Jun, [place] [address] 68663- 1727 Jun, [place] [id number], [place] [address]- 9944 Jun, Chronic pain syndrome G89.4 ; Type 2 diabetes mellitus with unspecified complications E11.8 ; assisted 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.4 ; Essential (primary) hypertension I10 ; Dyspepsia R10.13 ; Neuropathy G62.9 ; Mixed hyperlipidemia E78.2 ; Anxiety F41.9 ; Insomnia, unspecified G47.00 and Alteration in mobility due to weakness R53.1 [facility] [id number] [place] [address] 24955- 2787 May, [facility] [id number] [place] [address] 59119- 0870 May, [facility] [id number] [place] [address] 30449- 1452 May, [place] [id number] [place] [address] 93837- 6723 May, [facility] [id number] [place] [address] 77999- 5829 Apr, [place] [id number] [place] [address] 49389- 4802 Apr, [facility] [id number] [place] [address] 58944- 5435 Apr, [place] [id number] [place] [address] 27507- 0597 Mar, [facility] [id number] [place] [address] 49786- 7019 Mar, Chronic pain syndrome G89.4 ; Type 2 diabetes mellitus with unspecified complications E11.8 ; assisted 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.4 ; Essential (primary) hypertension I10 ; Dyspepsia R10.13 ; Neuropathy G62.9 ; Mixed hyperlipidemia E78.2 ; Anxiety F41.9 and Insomnia, unspecified G47.00 [facility] [id number] [place] [address] 21884- 8240 Mar, [place] [id number] [place] [address] 91324- 5673 Mar, [place] [id number] [place] [address] 60268- 4334 Feb, [place] [id number] [place] [address] 76788- 9166 Feb, Chronic pain syndrome G89.4 ; Type 2 diabetes mellitus with unspecified complications E11.8 ; assisted 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.4 ; Essential (primary) hypertension I10 ; Dyspepsia R10.13 ; Neuropathy G62.9 ; Mixed hyperlipidemia E78.2 ; Anxiety F41.9 and Insomnia, unspecified G47.00 [place] [id number] [place] [address] 27842- 3160 Jan, [place] [id number] [place] [address] 35344- 5979 Jan, Chronic pain syndrome G89.4 ; Type 2 diabetes mellitus with unspecified complications E11.8 ; assisted 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.4 ; Essential (primary) hypertension I10 ; Dyspepsia R10.13 ; Neuropathy G62.9 ; Mixed hyperlipidemia E78.2 ; Anxiety F41.9 and Insomnia, unspecified G47.00 [place] [id number] [place] [address] 25713- 2629 Jan, [place] [id number] [place] [address] 97904- 2084 Jan, [place] [id number] [place] [address] 88993- 9444 December, Chronic pain syndrome G89.4 ; Type 2 diabetes mellitus with unspecified complications E11.8 ; assisted 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.4 ; Essential (primary) hypertension I10 ; Dyspepsia R10.13 ; Neuropathy G62.9 ; Mixed hyperlipidemia E78.2 ; Anxiety F41.9 and Insomnia, unspecified G47.00 [place] [id number] [place] [address] 37683- 4638 December, [facility] [address], [place] [address]- 1992 Nov, [facility] [id number] [place] [address] 74186- 9061 Nov, [facility] [id number] [place] [address] 50836- 3041 Oct, Chronic pain syndrome G89.4 and Skin infection L08.9 [facility] [id number] [place] [address] 51643- 3823 Oct, [facility] [id number] [place] [address] 34939- 5957 Oct, [facility] [id number] [place] [address] 42199- 7462 Oct, [facility] [id number] [place] [address] 43430- 4654 Oct, [facility] [address] [place] [address] 44106- 9655 Oct, [facility] [id number] [place] [address] 38552- 0835 Oct, [facility] [address] [place] [address] 30737- 5188 Oct, Chronic pain syndrome G89.4 ; Type 2 diabetes mellitus with unspecified complications E11.8 ; 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 ; Essential (primary) hypertension I10 ; Dyspepsia R10.13 ; Neuropathy G62.9 and Mixed hyperlipidemia E78.2 [facility] [id number] [place] [address] 70075- 3814 Oct, [facility] [id number] [address]- 7566 15 Sep, 2015 [facility] [id number] [place] [address] 12736- 4607 Sep, [place] [address] [place] [address] 79279- 2832 Sep, Chronic pain syndrome G89.4 [place] [id number] [place] [address] 33235- 6562 Aug, [place] [id number] [place] [address] 17962- 4113 Aug, Chronic pain syndrome G89.4 ; Type 2 diabetes mellitus with unspecified complications E11.8 ; 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 ; Essential (primary) hypertension I10 and Dyspepsia R10.13 [place] [address] 38904- 9026 Aug, Rash R21 [place] [id number] [place] [address] 58437- 5849 Aug, [place] [id number] [place] [address] 30386- 6060 Aug, [place] [id number] [place] [address] 73478- 1471 Aug, [place] [id number] [place] [address] 41394- 7265 Aug, Insomnia, unspecified G47.00 ; Chronic pain syndrome G89.4 and Anxiety F41.9 [place] [id number] [place] [address] 07279- 6875 Aug, Depression, major, recurrent, in partial remission F33.41 and Anxiety disorder, unspecified F41.9 [place] [id number] [place] [address] 21785- 6656 Jul, [place] [id number] [place] [address] 48628- 1343 Jul, Chronic pain syndrome G89.4 ; Type 2 diabetes mellitus with unspecified complications E11.8 ; Gastro-esophageal reflux disease with esophagitis K21.0 ; assisted 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.4 ; Mixed hyperlipidemia E78.2 ; Essential (primary) hypertension I10 ; Otalgia of both ears H92.03 and Alopecia L65.9 [facility] [id number] [place] [address] 44942- 5880 Jul, [place] [id number] [place] [address] 26968- 7243 Jul, [place] [address] 37944- 9998 Jul, Anxiety F41.9 and Depressive disorder, not elsewhere classified 311 [place] [address] 63901- 1193 Jul, [place] [id number] [place] [address] 79853- 7340 Jul, Insomnia, unspecified G47.00 ; Anxiety disorder, unspecified F41.9 and Major depressive disorder, single episode, unspecified F32.9 [place] [id number] [place] [address] 88724- 8359 Jun, [place] [address] 39227- 2683 Jun, Insomnia, unspecified G47.00 ; Generalized psoriasis L40.1 and Chronic pain syndrome G89.4 [place] [id number] [place] [address] 98602- 3170 Jun, [place] [id number] [place] [address] 32287- 9872 Jun, [facility] [id number] [place] [address] 09196- 1422 Jun, Depressive disorder, not elsewhere classified 311 and Anxiety F41.9 [facility] [id number] [place] [address] 93183- 6367 Jun, Generalized psoriasis L40.1 [facility] [id number] [place] [address] 17307 -2552 Jun, Dermatitis L30.9 [place] [id number] [place] [address] 77698- 0216 May, Insomnia, unspecified G47.00 ; Chronic pain syndrome G89.4 and GERD (gastroesophageal reflux disease) K21.[address] 34813- 7430 May, Insomnia, unspecified G47.00 ; Anxiety disorder, unspecified F41.9 and Major depressive disorder, single episode, unspecified F32.[address] 66730- 2203 May, Depressive disorder, not elsewhere classified 311 and Anxiety F41.[address] 66709- 5281 May, [address] 90731- 3673 May, Insomnia, unspecified G47.00 and Encounter for immunization Z23 [place] [id number] [place] [address] 06732- 2244 May, [address] 12516- 9308 May, Chronic pain syndrome G89.4 ; Mixed hyperlipidemia E78.2 ; Type 2 diabetes mellitus with unspecified complications E11.8 ; Essential ( primary) hypertension I10 ; Anxiety F41.9 ; Insomnia, unspecified G47.00 ; 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 M79.7 and 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 [place] [id number] [place] [address] 67935- 1147 Apr, [address] 28064- 1766 Apr, Dyspepsia 536.8 and Insomnia 780.[address] 86063- 1435 Apr, Other malaise and fatigue 780.79 [facility] [address] [address]- 8765 Apr, [facility] [id number] [place] [address] 42433- 5939 Mar, Diabetes with neurological manifestations, type II or unspecified type, not stated as uncontrolled 250.60 ; Other chronic pain 338.29 ; Essential hypertension, benign 401.1 ; Anxiety state, unspecified 300.00 ; Insomnia 780.52 and Hyperlipidemia 272.4 [facility] [address], [place] [address]- 0640 Mar, [facility] [id number] [place] [address] 40281- 6717 Feb, [facility] [id number] [place] [address] 89730- 9237 Feb, [facility] [id number] [place] [address] 85807- 9807 Feb, [facility] [id number] [place] [address] 09377- 5378 Feb, [facility] [id number] [place] [address] 00437- 2195 Feb, [facility] [address], [place] [address]- 3973 Jan, Depressive disorder, not elsewhere classified 311 and Dyssomnia 780.56 [facility] [address] [address]- 3051 Jan, Diabetes with neurological manifestations, type II or unspecified type, not stated as uncontrolled 250.60 ; Other chronic pain 338.29 ; Essential hypertension, benign 401.1 ; Anxiety state, unspecified 300.00 ; Insomnia 780.52 and Hyperlipidemia 272.4 [facility] [id number], [place] [address] Jan, [facility] [id number] [place] [id number] Jan, [facility] [id number] [address] Jan, [facility] [id number] [address] Jan, [facility] [id number], [place] [address] Jan, [facility] [id number], [place] [address] Jan, [facility] [id number], [place] [address] December, [facility] [id number] [place] [address] December, [facility] [id number] [id number] December, [facility] [id number], [place] [address] December, [facility] [id number], [place] [address] December, Anxiety state, unspecified 300.00 ; Other chronic pain 338.29 ; Diabetes with neurological manifestations, type II or unspecified type , not stated as uncontrolled 250.60 ; Essential hypertension, benign 401.1 ; Compression fracture of thoracic spine, non-traumatic 733.13 ; Wrist fracture, left 814.00 and Fall at home E888.9 [facility] [address] [id number] [address] December, [facility] [id number], [place] [address] December, [facility] [id number], [place] [address] Nov, [facility] [address] [id number], [place] [address] Nov, [facility] [place] [facility] [address] [id number] [place] [address] Nov, [facility] [place] [facility] [address] [id number] [place] [address] Nov, [facility] [place] [facility] [address] [id number] [place] [address] Oct, [facility] [place] [facility] [address] [id number] [place] [address] Oct, [facility] [place] [facility] [address] [id number] [place] [address] Oct, [facility] [place] [facility] [address] [id number] [place] [address] Oct, [facility] [place] [facility] [address] [id number] [place] [address] Oct, [facility] [place] [facility] [address] [id number] [place] [address] Oct, [facility] [place] [facility] [address] [id number] [place] [address] Oct, [facility] [place] [facility] [address] [id number] [place] [address] Oct, [facility] [place] [facility] [address] [id number] [place] [address] Sep, [facility] [place] [facility] [address] [id number] [place] [address] Sep, [facility] [place] [facility] [address] [id number] [place] [address] Sep, [facility] [place] [facility] [address] [id number] [place] [address] Sep, [facility] [place] [facility] [address] [id number] [place] [address] Aug, [facility] [place] [facility] [address] [id number], [place] [address] Aug, [facility] [address] [facility] [id number], [place] [address] Aug, [facility] [address] [facility] [id number], [place] [address] Aug, [facility] [address] [facility] [id number], [place] [address] Aug, [facility] [address] [facility] [id number], [place] [address] Aug, [facility] [address] [facility] [id number], [place] [address] Aug, [facility] [address] [facility] [id number], [place] [address] Aug, IMMUNIZATIONS Vaccine Route Administration Date Status FLUARIX QUAD (3 AND UP) 2016 IM Intramuscular Jul 15, 2017 Administered SOCIAL HISTORY Never Assessed REASON FOR VISIT Flu shot-AHarrymanRN PLAN OF CARE VITAL SIGNS MEDICATIONS Unknown Medications RESULTS No Results PROCEDURES Procedure Date Ordered Result Body Site FLUARIX QUAD (3 AND UP) 2017 Jul 15, 2017 SINGLE IMMUNIZATION ADMIN Jul 15, 2017 INSTRUCTIONS MEDICATIONS ADMINISTERED No Known Medications [...] Retina 09/09/17 Medical History Weight loss, unintentional Medical History Accidental drug overdose in November Surgical History cholecystectomy 2014 Surgical History shoulder arthroscopy, repaired torn rotator cuff on both shoulders 1972, 1977 Surgical History section 1979 Surgical History Neck surgery Surgical History EGD 2014 Hospitalization History Surgery(s) only Hospitalization History Hosptial after OD 11/28/17 Hospitalization History Accidental overdose November
--- OUTSIDE RECORDS SUMMARY | 2018-01-14 12:24 | XMS REPORT ---
Author Author TERRENCE HEBERT [facility] Address [address] [place] [address] Care Team Providers Care Vice President Media Relations Name Role Phone EMILEE TERRENCE Unavailable PROBLEMS Type Condition ICD9-CM Code [id number] Code Onset Dates Condition Status SNOMED Code Diagnosis Mixed hyperlipidemia E78.2 Active 475560005 Problem Generalized psoriasis L40.1 Active 830030885 Diagnosis Arthritis M19.90 Active 3038817 Problem Major depressive disorder, single episode, unspecified F32.9 Active 11680457 Problem Type 2 diabetes mellitus with unspecified complications E11.8 Active 507805269 Problem Neuropathy G62.9 Active 533449125 Problem Dyspepsia R10.13 Active 189907113 Problem Weight loss, unintentional R63.4 Active 711034295 Problem Type 2 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 Active 58377300 Condition Depressive disorder, not elsewhere classified 311 Active 14630037 Diagnosis Anxiety F41.9 Active 16213632 Diagnosis Gastro-esophageal reflux disease with esophagitis K21.0 Active 197489152 Diagnosis Chronic pain syndrome G89.4 Active 32245676 Problem buttermaker 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.4 Active 417285090 Problem Insomnia, unspecified G47.00 Active 989922402 Problem 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 M79.7 Active 01473543 Diagnosis Essential (primary) hypertension I10 Active 45984199 ALLERGIES No Information ENCOUNTERS Encounter Location Date Diagnosis [facility] [id number] [address] Nov, [facility] [address] [address] 6553 Nov, [facility] [id number] [address] 2352 Oct, Major depressive disorder, single episode, unspecified F32.9 [facility] [id number] [place] [address] 00261- 2840 Oct, Chronic pain syndrome G89.4 and Anxiety F41.9 [facility] [id number] [place] [address] 32537- 8173 Oct, [facility] [id number] [place] [address] 00996- 0603 Sep, Major depressive disorder, single episode, unspecified F32.9 and Chronic pain syndrome G89.4 [facility] [id number] [place] [address] 21634- 8267 Sep, [facility] [address] 65792- 6592 Aug, Chronic pain syndrome G89.4 and Anxiety F41.9 [facility] [id number] [place] [address] 97909- 7300 Aug, Chronic pain syndrome G89.4 and Anxiety F41.9 [facility] [id number] [place] [address] 99469- 0981 Aug, [facility] [id number] [place] [address] 92493- 0663 Aug, Anxiety F41.9 and Chronic pain syndrome G89.4 [facility] [id number] [place] [address] 54601- 5739 Aug, [facility] [id number] [place] [address] 80775- 8128 Aug, Anxiety F41.9 ; Chronic pain syndrome G89.4 and Insomnia, unspecified G47.00 [facility] [id number] [place] [address] 95088- 3458 Jul, Chronic pain syndrome G89.4 ; Insomnia, unspecified G47.00 ; Type 2 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 ; buttermaker 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.4 ; Anxiety F41.9 and Essential (primary) hypertension I10 [facility] [id number] [address] 9850 Jul, [facility] [address] [place] [address] 25391- 6414 Jul, [facility] [id number] [place] [address] 34063- 4714 Jul, [facility] [id number] [place] [address] 60345- 7374 Jul, Encounter for immunization Z23 [facility] [id number] [place] [address] 21899- 3078 Jun, [facility] [id number] [place] [address] 59770- 1392 Jun, [facility] [id number] [place] [address] 19348- 6946 May, [facility] [id number] [place] [address] 06255- 7639 May, [facility] [address] [place] [address] 10621- 9902 May, [facility] [id number] [place] [address] 56397- 2197 Apr, Chronic pain syndrome G89.4 ; Anxiety F41.9 and Dyspepsia R10.13 [facility] [id number] [place] [address] 27706- 3426 Apr, [facility] [id number] [place] [address] 56049- 2734 Mar, Chronic pain syndrome G89.4 and Anxiety F41.9 [facility] [id number] [place] [address] 40832- 8983 Mar, Chronic pain syndrome G89.4 [facility] [address] [address]- 2277 Feb, Chronic pain syndrome G89.4 and Anxiety F41.9 [facility] [address] [facility] [id number] [place] [address]- 5730 Feb, [facility] [address] [facility] [id number] [place] [address]- 3296 Feb, Systolic murmur R01.1 [facility] [address] [facility] [id number] [place] [address]- 7502 Feb, [facility] [address] [facility] [id number] [place] [address], [place] [address]- 0568 Feb, [facility] [address] [facility] [id number] [place] [address] 05044- 4260 Feb, Chronic pain syndrome G89.4 [facility] [id number] [address]- 3031 Jan, [facility] [address] [place] [address] 00380- 1759 Jan, Heart murmur on physical examination R01.1 ; Anxiety F41.9 and Chronic pain syndrome G89.4 [facility] [address] [facility] [id number] [address]- 3756 Jan, Anxiety F41.9 and Chronic pain syndrome G89.4 [facility] [address] [address]- 9461 Jan, [facility] [address] [address]- 6406 Jan, Other malaise R53.81 [facility] [address] [facility] [id number] [address]- 2491 Jan, [facility] [address] [address]- 4716 Jan, [facility] [id number] [address]- 4317 Jan, Chronic pain syndrome G89.4 [facility] [address] [place] [address] 36180- 3530 December, Other malaise R53.81 [facility] [id number] [place] [address] 73096- 8701 December, Type 2 diabetes mellitus with unspecified complications E11.8 [facility] [id number] [place] [address] 66598- 2365 December, Anxiety F41.9 and Chronic pain syndrome G89.4 [facility] [id number] [place] [address] 07531- 5824 December, Type 2 diabetes mellitus with unspecified complications E11.8 ; Anxiety F41.9 ; buttermaker 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.4 and Chronic pain syndrome G89.4 [facility] [id number] [place] [address] 22071- 9032 Nov, [facility] [id number] [place] [address] 48344- 0468 Nov, [facility] [id number] [place] [address] 50400- 8103 Nov, Anxiety F41.9 and Chronic pain syndrome G89.4 [facility] [id number] [place] [address] 38687 -9641 Nov, Type 2 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 and Acute non-recurrent pansinusitis J01.40 [facility] [id number] [place] [address] 51771- 2292 Nov, Type 2 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 [facility] [address] [place] [address] 72864- 0713 Nov, [facility] [id number] [place] [address] 12614- 1253 Oct, Chronic pain syndrome G89.4 [facility] [address] [place] [address] 25617- 4590 Oct, Chronic pain syndrome G89.4 and Anxiety F41.9 [facility] [id number] [place] [address] 90512- 6052 Oct, Chronic pain syndrome G89.4 [facility] [address] [address]74- 9044 Sep, Anxiety F41.9 and Chronic pain syndrome G89.4 [facility] [address] 18881- 7336 Aug, Chronic pain syndrome G89.4 ; Essential (primary) hypertension I10 ; Dyspepsia R10.13 ; Neuropathy G62.9 ; Mixed hyperlipidemia E78.2 ; Anxiety F41.9 ; Insomnia, unspecified G47.00 and Weight loss, unintentional R63.4 [facility] [id number] [place] [address] 93306- 3802 Aug, Chronic pain syndrome G89.4 [facility] [address] 62728- 8709 Aug, Type 2 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 ; Chronic pain syndrome G89.4 ; buttermaker 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.4 and Wound, open, forearm, right, initial encounter S51.801A [facility] [id number] [place] [address] 52211- 1568 Jul, [facility] [id number] [place] [address] 48476- 6265 Jun, [facility] [address] 31533- 8378 Jun, [facility] [id number] [place] [address] 79571- 8809 Jun, Chronic pain syndrome G89.4 ; Type 2 diabetes mellitus with unspecified complications E11.8 ; [facility] 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.4 ; Essential (primary) hypertension I10 ; Dyspepsia R10.13 ; Neuropathy G62.9 ; Mixed hyperlipidemia E78.2 ; Anxiety F41.9 ; Insomnia, unspecified G47.00 and Alteration in mobility due to weakness R53.1 [facility] [address] [address]- 4953 May, [facility] [address] [address]- 9659 May, [facility] [address] [address]- 7416 May, [facility] [id number] [place] [address] 98555- 5107 May, [facility] [address] [address]- 4992 Apr, [facility] [id number] [place] [address] 26382- 6750 Apr, [facility] [id number] [place] [address] 76920- 2782 Apr, [facility] [address] [address]- 1848 Mar, [facility] [address] [address]- 7327 Mar, Chronic pain syndrome G89.4 ; Type 2 diabetes mellitus with unspecified complications E11.8 ; [facility] 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.4 ; Essential (primary) hypertension I10 ; Dyspepsia R10.13 ; Neuropathy G62.9 ; Mixed hyperlipidemia E78.2 ; Anxiety F41.9 and Insomnia, unspecified G47.00 [facility] [address] [address]- 5567 Mar, [facility] [address] [address]- 4015 Mar, [facility] [address] [address]- 2806 Feb, [facility] [address] [address]- 7553 Feb, Chronic pain syndrome G89.4 ; Type 2 diabetes mellitus with unspecified complications E11.8 ; buttermaker 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.4 ; Essential (primary) hypertension I10 ; Dyspepsia R10.13 ; Neuropathy G62.9 ; Mixed hyperlipidemia E78.2 ; Anxiety F41.9 and Insomnia, unspecified G47.00 [facility] [id number] [place] [address] 02277- 8321 Jan, [facility] [address] 32002- 4147 Jan, Chronic pain syndrome G89.4 ; Type 2 diabetes mellitus with unspecified complications E11.8 ; [facility] 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.4 ; Essential (primary) hypertension I10 ; Dyspepsia R10.13 ; Neuropathy G62.9 ; Mixed hyperlipidemia E78.2 ; Anxiety F41.9 and Insomnia, unspecified G47.00 [facility] [id number] [place] [address] 28335- 6882 Jan, [facility] [id number] [place] [address] 59254- 9741 Jan, [facility] [id number] [place] [address] 42245- 6105 December, Chronic pain syndrome G89.4 ; Type 2 diabetes mellitus with unspecified complications E11.8 ; buttermaker current use of insulin Z79.4 ; Essential (primary) hypertension I10 ; Dyspepsia R10.13 ; Neuropathy G62.9 ; Mixed hyperlipidemia E78.2 ; Anxiety F41.9 and Insomnia, unspecified G47.00 [facility] [id number] [place] [address] 94810- 4170 December, [facility] [id number] [place] [address] 94341- 5602 Nov, [facility] [id number] [place] [address] 13320- 9093 Nov, [facility] [id number] [place] [address] 32797- 6139 Oct, Chronic pain syndrome G89.4 and Skin infection L08.9 [facility] [address] [place] [address] 15778- 0315 Oct, [facility] [id number] [place] [address] 53013- 6814 Oct, [facility] [id number] [place] [address] 29372- 5976 Oct, [facility] [id number] [place] [address] 04815- 8265 Oct, [facility] [id number] [place] [address] 22438- 2456 Oct, [facility] [id number] [place] [address] 18842- 7727 Oct, [facility] [id number] [place] [address] 07348- 2571 Oct, Chronic pain syndrome G89.4 ; Type 2 diabetes mellitus with unspecified complications E11.8 ; [facility] current use of insulin Z79.4 ; Essential (primary) hypertension I10 ; Dyspepsia R10.13 ; Neuropathy G62.9 and Mixed hyperlipidemia E78.2 [facility] [address] [place] [address] 78651- 3414 Oct, [facility] [address] [place] [address] 87807- 7064 Sep, [facility] [id number] [place] [address] 17598- 3450 Sep, [facility] [id number] [place] [address] 16381- 3159 Sep, Chronic pain syndrome G89.4 [facility] [address] [place] [address] 10511- 3831 Aug, [facility] [id number] [place] [address] 92652- 1950 Aug, Chronic pain syndrome G89.4 ; Type 2 diabetes mellitus with unspecified complications E11.8 ; [facility] current use of insulin Z79.4 ; Essential (primary) hypertension I10 and Dyspepsia R10.13 [facility] [id number] [place] [address] 21791- 9235 Aug, Rash R21 [facility] [address] 76313- 8649 Aug, [facility] [id number] [place] [address] 20444- 8125 Aug, [facility] [address] 23166- 3250 Aug, [id number] [place] [address] 88191- 4317 Aug, Insomnia, unspecified G47.00 ; Chronic pain syndrome G89.4 and Anxiety F41.9 [id number] [place] [address] 73804- 9850 Aug, Depression, major, recurrent, in partial remission F33.41 and Anxiety disorder, unspecified F41.9 [facility] [id number] [place] [address] 51627- 9208 Jul, [id number] [place] [address] 41885- 6196 Jul, Chronic pain syndrome G89.4 ; Type 2 diabetes mellitus with unspecified complications E11.8 ; Gastro-esophageal reflux disease with esophagitis K21.0 ; buttermaker current use of insulin Z79.4 ; Mixed hyperlipidemia E78.2 ; Essential (primary) hypertension I10 ; Otalgia of both ears H92.03 and Alopecia L65.9 [facility] [id number] [place] [address] 20982- 2544 Jul, [id number] [place] [address] 79879- 7106 Jul, [facility] [address] [place] [address] 62665- 6979 Jul, Anxiety F41.9 and Depressive disorder, not elsewhere classified 311 [facility] [id number] [place] [address] 75511- 6714 Jul, [facility] [id number] [place] [address] 43367- 1077 Jul, Insomnia, unspecified G47.00 ; Anxiety disorder, unspecified F41.9 and Major depressive disorder, single episode, unspecified F32.9 [facility] [id number] [place] [address] 33425- 0685 Jun, [facility] [id number] [place] [address] 32439- 1303 Jun, Insomnia, unspecified G47.00 ; Generalized psoriasis L40.1 and Chronic pain syndrome G89.4 [facility] [id number] [place] [address] 22658- 1224 Jun, [facility] [id number] [place] [address] 14920- 6460 Jun, [facility] [id number] [place] [address] 61683- 3150 Jun, Depressive disorder, not elsewhere classified 311 and Anxiety F41.9 [facility] [id number] [place] [address] 51883- 7176 Jun, Generalized psoriasis L40.1 [facility] [address] [place] [address] 08609 -0859 Jun, Dermatitis L30.9 [facility] [id number] [place] [address] 52802- 8659 May, Insomnia, unspecified G47.00 ; Chronic pain syndrome G89.4 and GERD (gastroesophageal reflux disease) K21.9 [facility] [id number] [place] [address] 00226- 7511 May, Insomnia, unspecified G47.00 ; Anxiety disorder, unspecified F41.9 and Major depressive disorder, single episode, unspecified F32.9 [facility] [address] 55619- 2916 May, Depressive disorder, not elsewhere classified 311 and Anxiety F41.[address] 25971- 8520 May, [address] 005801- 7107 May, Insomnia, unspecified G47.00 and Encounter for immunization Z23 [address] 72596- 4364 May, [address] 39126- 4980 May, Chronic pain syndrome G89.4 ; Mixed hyperlipidemia E78.2 ; Type 2 diabetes mellitus with unspecified complications E11.8 ; Essential ( primary) hypertension I10 ; Anxiety F41.9 ; Insomnia, unspecified G47.00 ; 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 M79.7 and [facility] current use of insulin Z79.[address] 42165- 7461 Apr, [address] 98494- 8969 Apr, Dyspepsia 536.8 and Insomnia 780.[address] 42355- 5489 Apr, Other malaise and fatigue 780.[address] 01974- 1424 Apr, [address] 73608- 7202 Mar, Diabetes with neurological manifestations, type II or unspecified type, not stated as uncontrolled 250.60 ; Other chronic pain 338.29 ; Essential hypertension, benign 401.1 ; Anxiety state, unspecified 300.00 ; Insomnia 780.52 and Hyperlipidemia 272.4 [facility] [address] [address]- 0396 Mar, [facility] [address] [address]- 6277 Feb, [facility] [address] [address]- 9883 Feb, [facility] [id number] [place] [address] 58299- 6354 Feb, [facility] [id number] [place] [address] 16967- 5234 Feb, [facility] [id number] [address]- 8710 Feb, [facility] [id number] [place] [address] 05641- 3487 Jan, Depressive disorder, not elsewhere classified 311 and Dyssomnia 780.56 [facility] [address] [address]- 4883 Jan, Diabetes with neurological manifestations, type II or unspecified type, not stated as uncontrolled 250.60 ; Other chronic pain 338.29 ; Essential hypertension, benign 401.1 ; Anxiety state, unspecified 300.00 ; Insomnia 780.52 and Hyperlipidemia 272.4 [facility] [address] [address]- 4747 Jan, [facility] [address] [address]- 6895 Jan, [facility] [address] [address]- 0720 Jan, [facility] [address] [address]- 3875 Jan, [facility] [address] [address]- 6174 Jan, [facility] [address] [address]- 8514 Jan, [facility] [id number] [place] [address] 99850- 8799 December, [facility] [id number] [place] [address] 41619- 0980 December, [facility] [id number] [place] [address] 18478- 5775 December, [facility] [id number] [place] [address] 80085- 7234 December, [facility] [id number] [place] [address] 60162- 3340 December, Anxiety state, unspecified 300.00 ; Other chronic pain 338.29 ; Diabetes with neurological manifestations, type II or unspecified type , not stated as uncontrolled 250.60 ; Essential hypertension, benign 401.1 ; Compression fracture of thoracic spine, non-traumatic 733.13 ; Wrist fracture, left 814.00 and Fall at home E888.9 [facility] [id number] [address]- 8862 December, [facility] [id number] [address]- 8251 December, [facility] [address] [address]- 5867 Nov, [facility] [address] [address]- 5307 Nov, [facility] [id number] [place] [address] 07645- 3568 Nov, [facility] [id number] [place] [address] 63645- 8168 Nov, [facility] [address] [address]- 5604 Oct, [facility] [place] [facility] [address] [id number] [place] [address]- 8966 Oct, [facility] [place] [facility] [address] [id number] [place] [address]- 5261 Oct, [facility] [place] [facility] [address] [id number] [place] [address]- 7189 Oct, [facility] [place] [facility] [address] [id number] [place] [address]- 4961 Oct, [facility] [place] [facility] [address] [id number] [place] [address] Oct, [facility] [place] [facility] [address] [id number] [place] [address] Oct, [facility] [place] [facility] [address] [id number] [place] [address] Oct, [facility] [place] [facility] [address] [id number] [place] [address] Sep, [facility] [place] [facility] [address] [id number] [place] [address] Sep, [facility] [place] [facility] [address] [id number] [place] [address] Sep, [facility] [place] [facility] [address] [id number] [place] [address] Sep, [facility] [place] [facility] [address] [id number] [place] [address] Aug, [facility] [place] [facility] [address] [id number] [place] [address] Aug, [facility] [place] [facility] [address] [id number] [place] [address] Aug, [facility] [place] [facility] [address] [id number] [place] [address] Aug, [facility] [place] [facility] [address] [id number] [place] [id number] Aug, [facility] [address] [address] [facility] [id number] [place] [address] Aug, [facility] [address] [facility] [id number] [place] [address] Aug, [facility] [address] [facility] [id number] [place] [address] Aug, IMMUNIZATIONS No Known Immunizations SOCIAL HISTORY [...]
[2018-01-14] MEDS ORDERED: LACTATED RINGERS 1,000 ML IV STA (12:42)
[2018-01-14] MEDS ORDERED: LACTATED RINGERS 1,000 ML IV ONE (12:43)
[2018-01-14 12:54] VITALS: BP 166/91
--- NOTE | 2018-01-14 13:09 | Progress Note-Pre Operative ---
Pre-Operative Progress Note H&P Reviewed The H&P was reviewed, patient examined and no changes noted. Date Seen by Provider: Jan 14, 2018 Time Seen by Provider: 13:08 Date H&P Reviewed: Jan 14, 2018 Time H&P Reviewed: 13:08 Pre-Operative Diagnosis: history colon polyps, GERD GENARO MCPHERSON DO Jan 14, 2018 13:09
[2018-01-14] MEDS ORDERED: proPOfol 200 MG/20 ML (DIPRIVAN) VIAL IV ONE (13:10)
[2018-01-14] MEDS ORDERED: LIDOCAINE 2% 20 ML (XYLOCAINE) VIAL ONE (13:13)
[2018-01-14] MEDS ORDERED: HURRICAINE EXT TUBE (BENZOCAINE) ONE (13:17)
[2018-01-14] MEDS ORDERED: HURRICAINE EXT TUBE (BENZOCAINE) XX ONE (14:00)
[2018-01-14] MEDS ORDERED: PANT40TA2 PO (14:01)
--- NOTE | 2018-01-14 14:02 | Discharge Inst-Simple/Standard ---
Discharge Inst-Standard Discharge Medications New, Converted or Re-Newed RX: RX on Chart Patient Instructions/Follow Up Plan of Care/Instructions/FU: 2 weeks Masood Activity as Tolerated: Yes Discharge Diet: Regular Diet GENARO MCPHERSON DO Jan 14, 2018 14:02
--- NOTE | 2018-01-14 14:04 | Progress Note-Post Operative ---
Post-Operative Progess Note Surgeon (s)/Square Shear Operator (s) Surgeon GENARO MCPHERSON DO Square Shear Operator: na Pre-Operative Diagnosis history colon polyps, GERD Post-Operative Diagnosis gastritis, ascending colon polyp Procedure & Operative Findings Date of Procedure 01/14/18 Procedure Performed/Findings egd c biopsy and colonoscopy with hot bx polypectomy ascending colon polyp Anesthesia Type per measurement department chief clerk Estimated Blood Loss Estimated blood loss (mL): none Specimens/Packing Specimens Removed antrum, ascending colon polyp GENARO MCPHERSON DO Jan 14, 2018 14:04
[2018-01-14 14:15] VITALS: BP 159/95
[2018-01-14 14:45] VITALS: BP 192/110
[2018-01-14 15:00] VITALS: BP 192/110
--- NOTE | 2018-01-14 22:38 | OPERATIVE REPORT ---
DATE OF SERVICE: 01/14/2018 PREOPERATIVE DIAGNOSES: History of colon polyps, gastroesophageal reflux disease. POSTOPERATIVE DIAGNOSES: Gastritis, ascending colon polyp. PROCEDURE: EGD with biopsy and colonoscopy with hot biopsy polypectomy of ascending colon polyp. SURGEON: Genaro Correia DO ANESTHESIA: Per JIG MILL OPERATOR. ESTIMATED BLOOD LOSS: None. COMPLICATIONS: None. INDICATIONS: The patient is a 77-year-old here for GERD and history of colon polyp screening. The patient understands risks and benefits of procedure and wished to proceed with procedure. Consent was signed in the chart. DESCRIPTION OF PROCEDURE: The patient was taken to the endoscopy suite, placed in left lateral recumbent position. Timeout was performed. Scope was inserted in mouth, down the esophagus, stomach and into the duodenum without difficulty. There were no polyps, mass or ulcerations in the duodenum. Scope was slowly retracted back to the stomach where some slight erythematous changes consistent with some slight gastritis. Biopsy of the antrum was obtained. Scope was retroflexed noting no other pathology. Scope was returned to its normal position, slowly withdrawn to the distal esophagus, which had normal appearance. No polyps, masses or ulcerations. Scope was slowly retracted back to completely remove, noting no other pathology. Digital rectal exam was performed. There were no palpable polyps, mass or ulcerations. The scope was inserted in the rectum as well to the cecum with minimal difficulty. Still had a fair amount of stool; however, decent visualization with irrigation and suction. There were no polyps, mass or ulcerations within the cecum. Scope was continuously retracted back and a small polyp in the ascending colon, on which hot biopsy polypectomy was performed. Scope was continuously retracted back noting no other polyps, mass or ulcerations within the remainder of the ascending colon, transverse, descending colon, sigmoid colon and in the rectum. Scope was inserted multiple times and retracted noting no other pathology. Scope was slowly retracted back to completely remove. RECOMMENDATIONS: The patient was started on Protonix 40 mg daily for the gastritis. The patient will need repeat colonoscopy in 3 years. If she has any problems prior to that, she needs to be rescoped at that time just due to the poor prep. We will have her follow up in approximately 2-3 weeks. Job ID: [id number] DocumentID: [id number] Dictated Date: 01/14/2018 14:07:15 Valet Service Attendant Date: 01/14/2018 22:37:58 Dictated By: GENARO CORREIA DO
== END 2018-01-14 15:00 | disposition home or self-care (01) ==
LOC: ENDO 12:05
PROVIDERS: ATTEND Surgery
DX: Z12.11 Encounter for screening for malignant neoplasm of colon (principal); D12.2 Benign neoplasm of ascending colon; K29.50 Unspecified chronic gastritis without bleeding; I10 Essential (primary) hypertension; E11.42 Type 2 diabetes mellitus with diabetic polyneuropathy; F41.9 Anxiety disorder, unspecified; Z79.899 Other long term (current) drug therapy
CPT/HCPCS: 88305; 88342

== ENCOUNTER 2018-01-14 12:09 | Outpatient (CLI) | payer MEDICARE ==
[~2018-01-14] VITALS: Ht 152.4 cm; Wt 72.6 kg
[2018-01-14 13:06] LABS: BASOPHILS % (AUTO) 0 % (0-10); EOSINOPHILS # (AUTO) 0.1 10^3/uL (0.0-0.3); EOSINOPHILS % (AUTO) 2 % (0-10); HEMATOCRIT 35 % (35-52); HEMOGLOBIN 12.3 G/DL (11.5-16.0); LYMPHOCYTES # (AUTO) 0.8 X 10^3 (1.0-4.0); LYMPHOCYTES % (AUTO) 26 % (12-44); MEAN CORPUSCULAR HEMOGLOBIN 35 PG (25-34); MEAN CORPUSCULAR HGB CONC 35 G/DL (32-36); MEAN CORPUSCULAR VOLUME 99 FL (80-99); MEAN PLATELET VOLUME 10.7 FL (7.4-10.4); MONOCYTES # (AUTO) 0.1 X 10^3 (0.0-1.0); MONOCYTES % (AUTO) 4 % (0-12); NEUTROPHILS # (AUTO) 2.2 X 10^3 (1.8-7.8); NEUTROPHILS % (AUTO) 68 % (42-75); PLATELET COUNT 149 10^3/uL (130-400); RED BLOOD COUNT 3.55 10^6/uL (4.35-5.85); WHITE BLOOD COUNT 3.2 10^3/uL (4.3-11.0)
[2018-01-14] MEDS ORDERED: PANT40TA2 PO (14:01)
== END 2018-01-14 13:05 | disposition home or self-care (01) ==
LOC: PREOP 12:09
PROVIDERS: ATTEND Orthopaedic Surgery
DX: Z01.812 Encounter for preprocedural laboratory examination (principal); Z11.2 Encounter for screening for other bacterial diseases; M48.07 Spinal stenosis, lumbosacral region; Z22.322 Carrier or suspected carrier of Methicillin resistant Staphylococcus aureus
CPT/HCPCS: 36415; 85025; 86850; 86900; 86901; 87081

== ENCOUNTER 2018-01-17 14:02 | Emergency (ER) | payer MEDICARE ==
[~2018-01-17] VITALS: Ht 152.4 cm; Wt 70.8 kg
--- OUTSIDE RECORDS SUMMARY | 2018-01-17 14:09 | XMS REPORT | Clinical Summary ---
Author Author [facility] Organization [facility] Address Unknown Phone Unavailable Care Team Providers Care Corporate Communications Intern Name Role Phone Solomon Jordan MD PP [...] Taken Blood Pressure 190/100 06/28/2014 1:38 PM ACTUARIAL MANAGER Pulse - - Temperature - - Respiratory Rate - - Oxygen Saturation - - Inhaled Oxygen - - Concentration Weight 76.7 kg (169 lb) 06/28/2014 1:38 PM ACTUARIAL MANAGER Height 152.4 cm (5') 10/29/2013 1:20 PM CDT Body Mass Index 33.01 06/28/2014 1:38 PM ACTUARIAL MANAGER Plan of Treatment Health Maintenance Due Date Last Done Comments DTaP,Tdap,and Td Vaccines 1961 (1 - Tdap) Colon Cancer Screening 1992 Zoster Recombinant 1992 Vaccine (RZV,Shingrix) (1 of 2 - [facility] 2 Dose Standard) Pneumo-Adult (1 of 2 - 2007 PCV13) Influenza Vaccine (Season 04/12/2018 Ended) Results Not on filefrom Last 3 Months
--- OUTSIDE RECORDS SUMMARY | 2018-01-17 14:09 | XMS REPORT | Clinical Summary ---
Author Author [facility] Organization [facility] Address Unknown Phone Unavailable Care Team Providers Care Grout Pump Operator Name Role Phone Adolfo Ryan MD Unavailable Yvan Canas MD Unavailable Source Comments Some departments are not documenting in the electronic medical record. If you do not see the information that you expected, contact Release of Information in the Health Information Management department at [phone] for further assistance in locating additional records.[facility] Allergies Active Allergy Reactions Severity Noted [...]
--- NOTE | 2018-01-17 14:59 | ED Back Pain ---
General Chief Complaint: Back Problems Stated Complaint: BACK PAIN Source of Information: Patient Exam Limitations: No Limitations History of Present Illness Date Seen by Provider: Jan 17, 2018 Time Seen by Provider: 14:56 Initial Comments and ran some errands which she is not normally able to do. However she was feeling well so decided to Run these errands. Today, the right low back pain which is chronic for her is severe and intolerable radiating down the right leg. She denies any loss of bowel or bladder control or saddle anesthesia. She is scheduled to have surgery with Dr. Kennedy on the of this month here. She was formerly on Percocet and OxyContin but in July she states that [facility] to "drug rehabilitation" and she is no longer on pain medication. Location: Lumbar Spine, Paraspinous Muscles Timing/Duration: 1-2 Days Severity: Moderate Associated Symptoms: lower back pain Allergies and Home Medications Allergies Coded Allergies: famotidine (Verified Allergy, Severe, HAIR LOSS, 01/04/17) NOTIFIED ON 01/02/17 TO MEDICAL RECORDS aspirin (Unverified Allergy, Unknown, 11/23/16) hydromorphone (Unverified Allergy, Unknown, 11/23/16) triazolam (Unverified Allergy, Unknown, 11/23/16) Uncoded Allergies: TAPE (Allergy, Mild, RASH, 11/23/16) Home Medications Insulin Aspart 100 Unit/1 Ml Susp, 13 UNIT SQ TIDWM, (Reported) Insulin Detemir 100 Unit/1 Ml Insuln.pen, 40 UNIT SQ HS, (Reported) Metformin HCl 500 Mg Tab.er.24h, 500 MG PO HS, (Reported) [place]-3 Fatty Acids/Fish Oil 1 Each Capsule, 1,000 MG PO BID, (Reported) Pantoprazole Sodium 40 Mg Tablet.dr, 40 MG PO DAILY Prescribed by: GENARO MCPHERSON on 01/14/18 1401 Pravastatin Sodium 20 Mg Tablet, 20 MG PO HS, (Reported) Pregabalin 50 Mg Capsule, 50 MG PO BID, (Reported) Patient Home Medication List Home Medication List Reviewed: Yes Constitutional: see HPI EENTM: see HPI Respiratory: no symptoms reported Cardiovascular: no symptoms reported Genitourinary: no symptoms reported Musculoskeletal: see HPI, back pain Skin: no symptoms reported Psychiatric/Neurological: No Symptoms Reported Past Rxfuasu-Jtxrna-Dodcxm Hx Patient Social History Recent Foreign Travel: No Contact w/Someone Who Travel: No Recent Hopitalizations: No Immunizations Up To Date Tetanus Booster (TDap): Unknown PED Vaccines UTD: No Date of Pneumonia Vaccine: Jun 12, 2014 Date of Influenza Vaccine: May 21, 2016 Seasonal Allergies Seasonal Allergies: No Past Medical History Surgeries: Yes (KNEE, SHOULDERS BILAT, CSPINE SURGERY ) Section, Gallbladder, Orthopedic Respiratory: No Cardiac: Yes Heart Murmur, Hypertension Neurological: Yes (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) Stroke Reproductive Disorders: No Sexually Transmitted Disease: No HIV/AIDS: No Genitourinary: Yes UTI-Chronic Gastrointestinal: Yes (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; HX OF HEPATITIS A AND C-- NO TREATMENT; JOSE) Liver Disease/Jaundice, Chronic Constipation, Diverticulosis, Pancreatitis, Chronic Diarrhea, Gall Bladder Disease Musculoskeletal: Yes (hx broken pelvis and hips from horse accident, no surgery ) Arthritis, Chronic Back Pain, Fractures Endocrine: Yes (LONG HISTORY OF NON-COMPLIANCE; ) Diabetes, Insulin dep HEENT: Yes Loss of Vision: Bilateral Hearing Impairment: Hard of Hearing Cancer: No Psychosocial: Yes Sleep Difficulties, Anxiety Integumentary: No Blood Disorders: No Adverse Reaction/Blood Tranf: No (HAS HAD BLOOD WITH NO REACTION) Family Medical History Arthritis G8 SISTER Cardiovascular disease 19 MOTHER Diabetes mellitus 19 MOTHER G8 BROTHER Hypertension 19 MOTHER G8 BROTHER G8 BROTHER Myocardial infarction 19 MOTHER G8 BROTHER No Family History of: AIDS Abdominal aortic aneurysm Hewitt's disease Alcoholism Alzheimer's disease Aphasia Asthma Cancer of mouth Cataracts Colon cancer Completed stroke Congenital disease Congenital heart disease Coronary thrombosis Cystic fibrosis Deafness or hearing loss Dementia Drug abuse Dysphasia Fibrocystic disease of breast Gastroenteritis Glaucoma Headache disorder Hypercholesterolemia Infertility Kidney disease Neoplasm Not obtainable due to adoption Osteoporosis Parkinson's disease Prostate cancer Psychosocial problem Respiratory disorder Seizure disorder Severe allergy Thyroid disease Tuberculosis Visual disorder Physical Exam Vital Signs Vital Signs - First Documented 01/17/18 14:36 Temp 98.3 Pulse 79 Resp 18 B/P (MAP) 181/86 (117) Pulse Ox 97 Capillary Refill : General Appearance: No Apparent Distress, WD/WN HEENT: PERRL/EOMI, TMs Normal Neck: Full Range of Motion, Normal Inspection Respiratory: No Accessory Muscle Use, No Respiratory Distress Gastrointestinal: Normal Bowel Sounds, Non Tender, Soft Back: Normal Inspection; No Muscle Spasm, No Vertebral Tenderness Extremity: Normal Capillary Refill, Normal Inspection Neurologic/Psychiatric: Alert, Oriented x3, No Motor/Sensory Deficits, Normal Mood/Affect Skin: Normal Color, Warm/Dry Progress/Results/Core Measures Results/Orders My Orders Orders - CHARLETTE CHAPPELL APRN Ketorolac Injection (Toradol Injection) (01/17/18 15:00) Morphine Injection (Morphine Injection (01/17/18 15:00) Medications Given in ED Current Medications Medications Dose Ordered Sig/Андрей Route Start Time Stop Time Status Last Admin Dose Admin Ketorolac Tromethamine 60 mg ONCE ONCE IM 01/17/18 15:00 01/17/18 15:01 DC 01/17/18 15:18 60 MG Morphine Sulfate 8 mg ONCE ONCE IJ 01/17/18 15:00 01/17/18 15:01 DC 01/17/18 15:18 8 MG Vital Signs/I&O 01/17/18 14:36 Temp 98.3 Pulse 79 Resp 18 B/P (MAP) 181/86 (117) Pulse Ox 97 Departure Impression Primary Impression: Lumbar radiculopathy Disposition: 01 HOME, SELF-CARE Condition: Stable Departure-Patient Inst. Decision time for Depature: 14:59 Referrals: [facility] (PCP) Primary Care Physician LANIE BRIONES (Family) Primary Care Physician Patient Instructions: Radiculopathy (DC) Add. Discharge Instructions: 1. Keep your appointment with Dr. Kennedy. Return to ER for any concerns.All discharge instructions reviewed with patient and/or family. Voiced understanding. Scripts Hydrocodone/Acetaminophen ([place] 5-325 Tablet) 1 Each Tablet 1 EACH PO Q6H PRN for PAIN-SEVERE, #10 TAB Prov: CHARLETTE CHAPPELL APRN 01/17/18 CHARLETTE CHAPPELL APRN Jan 17, 2018 14:59
[2018-01-17] MEDS ORDERED: morphine INJ 10 MG/ML 1ML (SYR OR VIAL) IJ ONE (15:00)
[2018-01-17] MEDS ORDERED: KETOROLAC 60 MG/2 ML VIAL IM ONE (15:00)
[2018-01-17] MEDS ORDERED: HYDR-757 PO (15:57)
[2018-01-17 15:59] VITALS: BP 181/86
== END 2018-01-17 16:03 | disposition home or self-care (01) ==
LOC: EDUNIT# 14:02 → ER 14:04
DX: M54.16 Radiculopathy, lumbar region (principal); I10 Essential (primary) hypertension; K59.09 Other constipation; E11.9 Type 2 diabetes mellitus without complications; F41.9 Anxiety disorder, unspecified; G47.9 Sleep disorder, unspecified; Z87.81 Personal history of (healed) traumatic fracture; Z87.19 Personal history of other diseases of the digestive system; Z86.73 Personal history of transient ischemic attack (TIA), and cerebral infarction without residual deficits; Z87.59 Personal history of other complications of pregnancy, childbirth and the puerperium; Z98.890 Other specified postprocedural states
CPT/HCPCS: 96372; 99284

== ENCOUNTER 2018-01-19 06:47 | Emergency (ER) | payer MEDICARE ==
[~2018-01-19] VITALS: Ht 154.9 cm; Wt 70.3 kg
[~2018-01-19 06:47] MED LIST changes: +HYDR-757 PO
--- OUTSIDE RECORDS SUMMARY | 2018-01-19 06:54 | XMS REPORT | Clinical Summary ---
Author Author [facility] Organization [facility] Address Unknown Phone Unavailable Care Team Providers Care Operational Communication Chief Name Role Phone Adolfo Ryan MD Unavailable Yvan Canas MD Unavailable Source Comments Some departments are not documenting in the electronic medical record. If you do not see the information that you expected, contact Release of Information in the Health Information Management department at [phone] for further assistance in locating additional records.[facility] [...]
--- OUTSIDE RECORDS SUMMARY | 2018-01-19 06:54 | XMS REPORT | Clinical Summary ---
Author Author [facility] Organization [facility] Address Unknown Phone Unavailable Care Team Providers Care Fundraising Director Name Role Phone Solomon Jordan MD PP [...] Taken Blood Pressure 190/100 06/28/2014 1:38 PM COMPOSITE BOND TECHNICIAN Pulse - - Temperature - - Respiratory Rate - - Oxygen Saturation - - Inhaled Oxygen - - Concentration Weight 76.7 kg (169 lb) 06/28/2014 1:38 PM COMPOSITE BOND TECHNICIAN Height 152.4 cm (5') 10/29/2013 1:20 PM CDT Body Mass Index 33.01 06/28/2014 1:38 PM COMPOSITE BOND TECHNICIAN Plan of Treatment Health Maintenance Due Date Last Done Comments DTaP,Tdap,and Td Vaccines 1961 (1 - Tdap) Colon Cancer Screening 1992 Zoster Recombinant 1992 Vaccine (RZV,Shingrix) (1 of 2 - [facility] 2 Dose Standard) Pneumo-Adult (1 of 2 - 2007 PCV13) Influenza Vaccine (Season 04/12/2018 Ended) Results Not on filefrom Last 3 Months
--- OUTSIDE RECORDS SUMMARY | 2018-01-19 06:57 | XMS REPORT ---
Author Author LANIE BRIONES [facility] Address [address] [place] [address] Care Team Providers Care Hse Manager Name Role Phone LANIE BRIONES Unavailable PROBLEMS Type Condition ICD9-CM Code CEX26-EY Code Onset Dates Condition Status SNOMED Code Diagnosis Essential (primary) hypertension I10 Active 68061317 Problem Type 2 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 Active 41268587 Problem Generalized psoriasis L40.1 Active 882151399 Problem Anxiety state, unspecified F41.1 Active 346921606 Problem Depression, unspecified depression type F32.9 Active 27371235 Problem Systolic murmur R01.1 Active 51007530 Problem Major depressive disorder, single episode, unspecified F32.9 Active 01923136 Problem Mild neurocognitive disorder G31.84 Active 218346943 Problem Recurrent major depressive disorder, in partial remission F33.41 Active 27047138 Diagnosis Anxiety F41.9 Active 27103156 Problem director of analytics current use of 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 [address] [facility] [id number] [address] Jan, [facility] [id number] [place] [address] 27049- 3917 Jan, [facility] [address] [id number] [address] 4512 Jan, Gastro-esophageal reflux disease with esophagitis K21.0 and Dyspepsia R10.13 [place] [id number] [place] [address] 54538- 5789 Jan, Mild neurocognitive disorder G31.84 ; Depression, unspecified depression type F32.9 and Anxiety state, unspecified F41.1 [facility] [id number] [place] [address] 00837- 1764 December, Chronic pain syndrome G89.4 ; Type 2 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 ; Systolic murmur R01.1 ; Mixed hyperlipidemia E78.2 ; Anxiety F41.9 ; Essential (primary) hypertension I10 ; Gastro- esophageal reflux disease with esophagitis K21.0 ; Insomnia, unspecified G47.00 ; director of analytics current use of insulin Z79.4 ; 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 M79.7 ; Generalized psoriasis L40.1 and Recurrent major depressive disorder, in partial remission F33.41 [place] [id number] [place] [address] 01661- 6917 December, Systolic murmur R01.1 [place] [id number] [place] [address] 65833- 0751 December, [facility] [place] [id number] [place] [address] 64847- 4733 December, Chronic pain syndrome G89.4 and Opioid overdose, accidental or unintentional, initial encounter T40.2X1A [place] [id number] [place] [address] 72769- 2526 December, [place] [id number] [place] [address] 09633- 9899 Nov, [facility] [id number] [place] [address] 58718- 6932 Nov, [facility] [id number] [place] [address] 08816- 5752 Nov, Type 2 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 ; Essential (primary) hypertension I10 ; Chronic pain syndrome G89.4 and Arthritis M19.90 [facility] [place] [address] [id number] [address] 0692 Nov, Major depressive disorder, single episode, unspecified F32.9 and Chronic pain syndrome G89.4 [facility] [id number] [place] [address] 51447- 5376 Nov, Chronic pain syndrome G89.4 [facility] [id number] [place] [address] 12586- 6246 Oct, Chronic pain syndrome G89.4 and Anxiety F41.9 [facility] [id number] [place] [address] 16723- 1798 Oct, Major depressive disorder, single episode, unspecified F32.9 [facility] [id number] [place] [address] 00189- 7716 Oct, Chronic pain syndrome G89.4 and Anxiety F41.9 [facility] [id number] [place] [address] 54276- 8061 Oct, [facility] [id number] [place] [address] 41534- 2176 Sep, Major depressive disorder, single episode, unspecified F32.9 and Chronic pain syndrome G89.4 [facility] [address] [address] 3430 Sep, [facility] [id number] [place] [address] 32858- 6046 Aug, Chronic pain syndrome G89.4 and Anxiety F41.9 [facility] [id number] [place] [address] 95880- 5178 Aug, Chronic pain syndrome G89.4 and Anxiety F41.9 [facility] [address] [place] [address] 52431- 9522 Aug, [facility] [address] [address] 4930 Aug, Anxiety F41.9 and Chronic pain syndrome G89.4 [facility] [id number] [place] [address] 12274- 3055 Aug, [facility] [address] 99826- 5993 Aug, Anxiety F41.9 ; Chronic pain syndrome G89.4 and Insomnia, unspecified G47.00 [facility] [address] 63347- 4679 Jul, Chronic pain syndrome G89.4 ; Insomnia, unspecified G47.00 ; Type 2 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 ; shelter current use of insulin Z79.4 ; Anxiety F41.9 and Essential (primary) hypertension I10 [facility] [id number] [place] [address] 44618- 8669 Jul, [facility] [address] 60639- 9005 Jul, [facility] [id number] [place] [address] 38491- 1501 Jul, [facility] [address] 54349- 0761 Jul, Encounter for immunization Z23 [facility] [id number] [place] [address] 04468- 2273 Jun, [facility] [id number] [place] [address] 68365- 5187 Jun, [facility] [id number] [place] [address] 84152- 4525 May, [facility] [address] 72224- 3714 May, [facility] [id number] [place] [address] 86620- 0385 May, [facility] [id number] [place] [address] 90135- 4349 Apr, Chronic pain syndrome G89.4 ; Anxiety F41.9 and Dyspepsia R10.13 [facility] [address] [place] [address] 53306- 9886 Apr, [facility] [id number] [place] [address] 95524- 0486 Mar, Chronic pain syndrome G89.4 and Anxiety F41.9 [facility] [id number] [place] [address] 40016- 9004 Mar, Chronic pain syndrome G89.4 [facility] [id number] [place] [address] 45591- 8144 Feb, Chronic pain syndrome G89.4 and Anxiety F41.9 [facility] [id number] [place] [address] 43278- 7386 Feb, [facility] [id number] [place] [address] 53005- 0660 Feb, Systolic murmur R01.1 [facility] [id number] [place] [address] 19128- 8137 Feb, [facility] [id number] [place] [address] 24025- 2763 Feb, [facility] [id number] [place] [address] 12892- 8189 Feb, Chronic pain syndrome G89.4 [facility] [id number] [place] [address] 48375- 7454 Jan, [facility] [id number] [place] [address] 31085- 3307 Jan, Heart murmur on physical examination R01.1 ; Anxiety F41.9 and Chronic pain syndrome G89.4 [facility] [id number] [address] 1918 Jan, Anxiety F41.9 and Chronic pain syndrome G89.4 [facility] [address] [id number] [address]- 4534 Jan, [facility] [id number] [place] [address] 06823- 0993 Jan, Other malaise R53.81 [facility] [id number] [place] [address] 81744- 3769 Jan, [facility] [id number] [place] [address] 90904- 5124 Jan, [facility] [id number] [place] [address] 91365- 0809 Jan, Chronic pain syndrome G89.4 [facility] [id number] [place] [address] 27068- 3104 December, Other malaise R53.81 [facility] [id number] [place] [address] 57699- 2424 December, Type 2 diabetes mellitus with unspecified complications E11.8 [facility] [address] [place] [address] 49081- 2440 December, Anxiety F41.9 and Chronic pain syndrome G89.4 [facility] [address] [place] [address] 59894- 0351 December, Type 2 diabetes mellitus with unspecified complications E11.8 ; Anxiety F41.9 ; director of analytics current use of insulin Z79.4 and Chronic pain syndrome G89.4 [facility] [address] [address]- 5203 Nov, [facility] [address] [address]- 5210 Nov, [facility] [id number] [place] [address] 41196- 9382 Nov, Anxiety F41.9 and Chronic pain syndrome G89.4 [facility] [address] [address]66 Nov, Type 2 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 and Acute non-recurrent pansinusitis J01.40 [facility] [facility] [address] 95678- 4037 Nov, Type 2 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 [facility] [facility] [address] 15303- 2828 Nov, [place] [address] 54523- 9861 Oct, Chronic pain syndrome G89.4 [place] [address] 33888- 2503 Oct, Chronic pain syndrome G89.4 and Anxiety F41.9 [place] [facility] [address] 19875- 7887 Oct, Chronic pain syndrome G89.4 [place] [address] 47448- 8906 Sep, Anxiety F41.9 and Chronic pain syndrome G89.4 [place] [address] 19540- 7864 Aug, Chronic pain syndrome G89.4 ; Essential (primary) hypertension I10 ; Dyspepsia R10.13 ; Neuropathy G62.9 ; Mixed hyperlipidemia E78.2 ; Anxiety F41.9 ; Insomnia, unspecified G47.00 and Weight loss, unintentional R63.4 [place] [address] 23981- 9082 Aug, Chronic pain syndrome G89.4 [place] [address] 35168- 3018 Aug, Type 2 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 ; Chronic pain syndrome G89.4 ; director of analytics current use of insulin Z79.4 and Wound, open, forearm, right, initial encounter S51.801A [place] [id number]- 2546 Jul, [facility] [address] [address]- 5870 Jun, [facility] [id number] [place] [address] 90599- 4030 Jun, [facility] [id number] [place] [address] 52526- 1567 Jun, Chronic pain syndrome G89.4 ; Type 2 diabetes mellitus with unspecified complications E11.8 ; shelter current use of insulin Z79.4 ; Essential (primary) hypertension I10 ; Dyspepsia R10.13 ; Neuropathy G62.9 ; Mixed hyperlipidemia E78.2 ; Anxiety F41.9 ; Insomnia, unspecified G47.00 and Alteration in mobility due to weakness R53.1 [facility] [address] [place] [address] 07870- 7011 May, [facility] [id number] [place] [address] 93215- 3340 May, [facility] [id number] [place] [address] 47484- 1717 May, [facility] [id number] [place] [address] 84563- 0694 May, [facility] [address] [address]- 3469 Apr, [facility] [id number] [place] [address] 67268- 8334 Apr, [facility] [address] [place] [address] 56046- 6311 Apr, [facility] [id number] [place] [address] 45620- 4912 Mar, [facility] [address] [address]- 9271 Mar, Chronic pain syndrome G89.4 ; Type 2 diabetes mellitus with unspecified complications E11.8 ; shelter current use of insulin Z79.4 ; Essential (primary) hypertension I10 ; Dyspepsia R10.13 ; Neuropathy G62.9 ; Mixed hyperlipidemia E78.2 ; Anxiety F41.9 and Insomnia, unspecified G47.00 [place] [address] [place] [address] 99056- 9011 Mar, [place] [id number] [place] [address] 28927- 9032 Mar, [place] [id number] [place] [address] 46947- 9703 Feb, [place] [id number] [place] [address] 13150- 9578 Feb, Chronic pain syndrome G89.4 ; Type 2 diabetes mellitus with unspecified complications E11.8 ; director of analytics current use of insulin Z79.4 ; Essential (primary) hypertension I10 ; Dyspepsia R10.13 ; Neuropathy G62.9 ; Mixed hyperlipidemia E78.2 ; Anxiety F41.9 and Insomnia, unspecified G47.00 [place] [address] [place] [address] 70778- 1190 Jan, [facility] [id number] [place] [address] 55273- 9941 Jan, Chronic pain syndrome G89.4 ; Type 2 diabetes mellitus with unspecified complications E11.8 ; director of analytics current use of insulin Z79.4 ; Essential (primary) hypertension I10 ; Dyspepsia R10.13 ; Neuropathy G62.9 ; Mixed hyperlipidemia E78.2 ; Anxiety F41.9 and Insomnia, unspecified G47.00 [place] [address] [place] [address] 93721- 7275 Jan, [place] [id number] [place] [address] 77225- 1109 Jan, [place] [id number] [place] [address] 38595- 1215 December, Chronic pain syndrome G89.4 ; Type 2 diabetes mellitus with unspecified complications E11.8 ; director of analytics current use of insulin Z79.4 ; Essential (primary) hypertension I10 ; Dyspepsia R10.13 ; Neuropathy G62.9 ; Mixed hyperlipidemia E78.2 ; Anxiety F41.9 and Insomnia, unspecified G47.00 [facility] [address] [address]- 7528 December, [facility] [id number] [place] [address] 56287- 5391 Nov, [facility] [id number] [place] [address] 96585- 7200 Nov, [facility] [id number] [place] [address] 30688- 1495 Oct, Chronic pain syndrome G89.4 and Skin infection L08.9 [facility] [id number] [place] [address] 02539- 7718 Oct, [facility] [id number] [place] [address] 04041- 5753 Oct, [facility] [id number] [place] [address] 43819- 4605 Oct, [facility] [address], [place] [address]- 1001 Oct, [facility] [address] [address]- 8615 Oct, [facility] [address] [address]- 7629 Oct, [facility] [address], [place] [address]- 1155 Oct, Chronic pain syndrome G89.4 ; Type 2 diabetes mellitus with unspecified complications E11.8 ; shelter current use of insulin Z79.4 ; Essential (primary) hypertension I10 ; Dyspepsia R10.13 ; Neuropathy G62.9 and Mixed hyperlipidemia E78.2 [facility] [address] [address]- 4838 Oct, [place] [id number] [place] [address] 65402- 4792 Sep, [place] [id number] [place] [address] 76239- 2887 Sep, [facility] [facility] [id number] [place] [address] 25679- 1187 Sep, Chronic pain syndrome G89.4 [place] [address] [place] [address] 72223- 3508 Aug, [facility] [id number] [place] [address] 77445- 3329 Aug, Chronic pain syndrome G89.4 ; Type 2 diabetes mellitus with unspecified complications E11.8 ; director of analytics current use of insulin Z79.4 ; Essential (primary) hypertension I10 and Dyspepsia R10.13 [place] [address] [place] [address] 74725- 2309 Aug, Rash R21 [facility] [id number] [place] [address] 26016- 0669 Aug, [facility] [id number] [place] [address] 14436- 5248 Aug, [facility] [facility] [id number] [place] [address] 37241- 0930 Aug, [place] [id number] [place] [address] 13493- 2246 Aug, Insomnia, unspecified G47.00 ; Chronic pain syndrome G89.4 and Anxiety F41.9 [place] [id number] [place] [address] 69028- 8999 Aug, Depression, major, recurrent, in partial remission F33.41 and Anxiety disorder, unspecified F41.9 [place] [id number] [place] [address] 66044- 6675 Jul, [place] [id number] [place] [address] 35593- 4826 Jul, Chronic pain syndrome G89.4 ; Type 2 diabetes mellitus with unspecified complications E11.8 ; Gastro-esophageal reflux disease with esophagitis K21.0 ; shelter current use of insulin Z79.4 ; Mixed hyperlipidemia E78.2 ; Essential (primary) hypertension I10 ; Otalgia of both ears H92.03 and Alopecia L65.9 [place] [address] 35136- 2191 Jul, [place] [address] 53053- 1158 Jul, [place] [address] 58351- 5652 Jul, Anxiety F41.9 and Depressive disorder, not elsewhere classified 311 [place] [address] 70417- 2407 Jul, [facility] [facility] [id number] [place] [address] 49994- 5366 Jul, Insomnia, unspecified G47.00 ; Anxiety disorder, unspecified F41.9 and Major depressive disorder, single episode, unspecified F32.9 [place] [id number] [place] [address] 98932- 2394 Jun, [place] [id number] [place] [address] 74796- 7662 Jun, Insomnia, unspecified G47.00 ; Generalized psoriasis L40.1 and Chronic pain syndrome G89.[address] 14616- 0392 Jun, [place] [id number] [place] [address] 85447- 3969 Jun, [place] [address] 76091- 0774 Jun, Depressive disorder, not elsewhere classified 311 and Anxiety F41.9 [facility] [id number] [place] [address] 43277- 5143 Jun, Generalized psoriasis L40.1 [facility] [id number] [place] [address] 44210 -6536 Jun, Dermatitis L30.9 [facility] [address] 33048- 9940 May, Insomnia, unspecified G47.00 ; Chronic pain syndrome G89.4 and GERD (gastroesophageal reflux disease) K21.9 [place] [address] 05991- 6236 May, Insomnia, unspecified G47.00 ; Anxiety disorder, unspecified F41.9 and Major depressive disorder, single episode, unspecified F32.9 [place] [address] 48770- 2496 May, Depressive disorder, not elsewhere classified 311 and Anxiety F41.9 [place] [id number] [place] [address] 96139- 9645 May, [facility] [facility] [address] 47444- 6600 May, Insomnia, unspecified G47.00 and Encounter for immunization Z23 [place] [id number] [place] [address] 33695- 2615 May, [place] [id number] [place] [address] 78086- 4505 May, Chronic pain syndrome G89.4 ; Mixed hyperlipidemia E78.2 ; Type 2 diabetes mellitus with unspecified complications E11.8 ; Essential ( primary) hypertension I10 ; Anxiety F41.9 ; Insomnia, unspecified G47.00 ; 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 M79.7 and director of analytics current use of insulin Z79.4 [place] [id number] [place] [address] 37913- 0705 Apr, [facility] [address] [address]- 3791 Apr, Dyspepsia 536.8 and Insomnia 780.52 [facility] [address] [place] [address] 228496- 4913 Apr, Other malaise and fatigue 780.79 [facility] [id number] [place] [address] 82855- 6745 Apr, [facility] [id number] [place] [address] 17498- 3053 Mar, Diabetes with neurological manifestations, type II or unspecified type, not stated as uncontrolled 250.60 ; Other chronic pain 338.29 ; Essential hypertension, benign 401.1 ; Anxiety state, unspecified 300.00 ; Insomnia 780.52 and Hyperlipidemia 272.4 [place] [id number] [place] [address] 89880- 9225 Mar, [facility] [id number] [place] [address] 05024- 6185 Feb, [facility] [id number] [place] [address] 40133- 5901 Feb, [facility] [id number] [place] [address] 48133- 5773 Feb, [facility] [id number] [place] [address] 30794- 6926 Feb, [facility] [id number] [place] [address] [phone]- [phone] Feb, [facility] [id number] [place] [address] [phone] Jan, Depressive disorder, not elsewhere classified 311 and Dyssomnia 780.56 [facility] [id number] [place] [address] [phone]- [phone] Jan, Diabetes with neurological manifestations, type II or unspecified type, not stated as uncontrolled 250.60 ; Other chronic pain 338.29 ; Essential hypertension, benign 401.1 ; Anxiety state, unspecified 300.00 ; Insomnia 780.52 and Hyperlipidemia 272.4 [facility] [id number] [address] Jan, [facility] [id number] [address] Jan, [facility] [id number] [place] [address] [id number]- [phone] Jan, [facility] [id number] [place] [address] [id number] Jan, [facility] [id number] [place] [address] [phone] Jan, [facility] [id number] [place] [address] [id number]- [phone] Jan, [facility] [id number] [place] [address] [phone] December, [facility] [id number] [address] December, [facility] [id number] [place] [address] [phone]- [phone] December, [facility] [address] [id number] [address] December, [facility] [id number] [address] December, Anxiety state, unspecified 300.00 ; Other chronic pain 338.29 ; Diabetes with neurological manifestations, type II or unspecified type , not stated as uncontrolled 250.60 ; Essential hypertension, benign 401.1 ; Compression fracture of thoracic spine, non-traumatic 733.13 ; Wrist fracture, left 814.00 and Fall at home E888.9 [facility] [id number] [address] December, [facility] [id number] [address] December, [facility] [place] [facility] [address] [id number] [place] [address] Nov, [facility] [place] [facility] [address] [id number] [place] [address] Nov, [facility] [place] [facility] [address] [id number] [place] [address] Nov, [facility] [place] [facility] [address] [id number] [place] [address] Nov, [facility] [place] [facility] [address] [id number] [place] [address] Oct, [facility] [place] [facility] [address] [id number] [place] [address] Oct, [facility] [place] [facility] [address] [facility] [id number] [place] [address] Oct, [facility] [place] [facility] [address] [facility] [id number] [place] [address] Oct, [facility] [place] [facility] [address] [id number] [place] [address] Oct, [facility] [place] [facility] [address] [facility] [id number] [place] [address] Oct, [facility] [place] [facility] [address] [id number] [place] [address] Oct, [facility] [place] [facility] [address] [facility] [id number] [place] [address] Oct, [facility] [place] [facility] [address] [id number] [place] [address] Sep, [facility] [place] [facility] [address] [facility] [id number] [place] [address] Sep, [facility] [place] [facility] [address] [facility] [id number] [place] [address] Sep, [facility] [id number] [address] Sep, [facility] [id number] [address] Aug, [facility] [address] [id number] [address] Aug, [facility] [id number] [address] Aug, [facility] [address] [id number] [address] Aug, [facility] [id number] [place] [address] Aug, [facility] [id number] [address] Aug, [facility] [id number] [address] Aug, [facility] [id number], [place] [address] Aug, IMMUNIZATIONS No Known Immunizations SOCIAL HISTORY Never Assessed REASON FOR VISIT PLAN OF CARE VITAL SIGNS MEDICATIONS Unknown [...] after OD 11/28/17 Hospitalization History Accidental overdose Hillary
[2018-01-19] MEDS ORDERED: KETOROLAC 60 MG/2 ML VIAL IM STA (07:07)
[2018-01-19] MEDS ORDERED: morphine INJ 10 MG/ML 1ML (SYR OR VIAL) IM STA (07:07)
--- OUTSIDE RECORDS SUMMARY | 2018-01-19 07:08 | XMS REPORT ---
Author Author LANIE BRIONES [facility] Address [address] [place] [address] Care Team Providers Care Field Logistics Coordinator Name Role Phone LANIE BRIONES Unavailable PROBLEMS Type Condition ICD9-CM Code LPO28-RL Code Onset Dates Condition Status SNOMED Code Diagnosis Essential (primary) hypertension I10 Active 54881642 Problem Type 2 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 Active 04832270 Problem Generalized psoriasis L40.1 Active 497357857 Problem Anxiety state, unspecified F41.1 Active 664486048 Problem Depression, unspecified depression type F32.9 Active 50951004 Problem Systolic murmur R01.1 Active 33244481 Problem Major depressive disorder, single episode, unspecified F32.9 Active 69210083 Problem Mild neurocognitive disorder G31.84 Active 145970306 Problem Recurrent major depressive disorder, in partial remission F33.41 Active 83225685 Diagnosis Anxiety F41.9 Active 65012312 Problem 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 Active 436796926 Diagnosis Chronic pain syndrome G89.4 Active 25864715 Problem Insomnia, unspecified G47.00 Active 065750585 Problem 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 M79.7 Active 81909292 Diagnosis Arthritis M19.90 Active 3166702 Diagnosis Gastro-esophageal reflux disease with esophagitis K21.0 Active 805177967 Diagnosis Mixed hyperlipidemia E78.2 Active 526035825 ALLERGIES No Information ENCOUNTERS Encounter Location Date Diagnosis [facility] [address] [facility] [id number] [address] Jan, [facility] [id number] [place] [address] 19491- 1748 Jan, [facility] [address] [id number], [place] [address] Jan, Gastro-esophageal reflux disease with esophagitis K21.0 and Dyspepsia R10.13 [place] [id number] [place] [address] 67023- 5429 Jan, Mild neurocognitive disorder G31.84 ; Depression, unspecified depression type F32.9 and Anxiety state, unspecified F41.1 [place] [facility] [address] [place] [address] 57077- 8701 December, Chronic pain syndrome G89.4 ; Type 2 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 ; Systolic murmur R01.1 ; Mixed hyperlipidemia E78.2 ; Anxiety F41.9 ; Essential (primary) hypertension I10 ; Gastro- esophageal reflux disease with esophagitis K21.0 ; Insomnia, unspecified G47.00 ; 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 ; 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 M79.7 ; Generalized psoriasis L40.1 and Recurrent major depressive disorder, in partial remission F33.41 [place] [id number] [place] [address] 15559- 7473 December, Systolic murmur R01.1 [place] [id number] [place] [address] 34385- 3524 December, [place] [id number] [place] [address] 02907- 1908 December, Chronic pain syndrome G89.4 and Opioid overdose, accidental or unintentional, initial encounter T40.2X1A [place] [id number] [place] [address] 92550- 5962 December, [place] [id number] [place] [address] 66492- 6664 Nov, [place] [id number] [place] [address] 67697- 8019 Nov, [place] [id number] [place] [address] 58066- 9180 Nov, Type 2 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 ; Essential (primary) hypertension I10 ; Chronic pain syndrome G89.4 and Arthritis M19.90 [place] [address] [id number], [place] [address] 5182 Nov, Major depressive disorder, single episode, unspecified F32.9 and Chronic pain syndrome G89.4 [facility] [id number] [place] [address] 50922- 3436 Nov, Chronic pain syndrome G89.4 [facility] [address] [place] [address] 81455- 1836 Oct, Chronic pain syndrome G89.4 and Anxiety F41.9 [facility] [id number] [place] [address] 23001- 0946 Oct, Major depressive disorder, single episode, unspecified F32.9 [facility] [id number] [place] [address] 20144- 9646 Oct, Chronic pain syndrome G89.4 and Anxiety F41.9 [facility] [id number] [place] [address] 75641- 1286 Oct, [facility] [id number] [place] [address] 03645- 3271 Sep, Major depressive disorder, single episode, unspecified F32.9 and Chronic pain syndrome G89.4 [facility] [address], [place] [address] 3154 Sep, [facility] [address] [place] [address] 40969- 7806 Aug, Chronic pain syndrome G89.4 and Anxiety F41.9 [facility] [address] [place] [address] 82846- 3315 Aug, Chronic pain syndrome G89.4 and Anxiety F41.9 [facility] [address] [place] [address] 35632- 0082 Aug, [facility] [address], [place] [address]- 2034 Aug, Anxiety F41.9 and Chronic pain syndrome G89.4 [facility] [id number] [place] [address] 79956- 0851 Aug, [facility] [address] 82486- 9935 Aug, Anxiety F41.9 ; Chronic pain syndrome G89.4 and Insomnia, unspecified G47.00 [facility] [address] 13870- 0609 Jul, Chronic pain syndrome G89.4 ; Insomnia, unspecified G47.00 ; Type 2 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 ; half-way current use of insulin Z79.4 ; Anxiety F41.9 and Essential (primary) hypertension I10 [facility] [id number] [place] [address] 28056- 5441 Jul, [facility] [address] 96415- 6904 Jul, [facility] [id number] [place] [address] 77055- 1404 Jul, [facility] [address] 48860- 8311 Jul, Encounter for immunization Z23 [facility] [id number] [place] [address] 02924- 1712 Jun, [facility] [id number] [place] [address] 15242- 4929 Jun, [facility] [id number] [place] [address] 46175- 0208 May, [facility] [address] 07157- 2953 May, [facility] [id number] [place] [address] 79016- 1296 May, [facility] [id number] [place] [address] 10392- 4477 Apr, Chronic pain syndrome G89.4 ; Anxiety F41.9 and Dyspepsia R10.13 [facility] [address] [place] [address] 74086- 2656 Apr, [facility] [id number] [place] [address] 63249- 7836 Mar, Chronic pain syndrome G89.4 and Anxiety F41.9 [facility] [id number] [place] [address] 25673- 5346 Mar, Chronic pain syndrome G89.4 [facility] [id number] [place] [address] 71078- 6635 Feb, Chronic pain syndrome G89.4 and Anxiety F41.9 [facility] [id number] [place] [address] 41023- 6195 Feb, [facility] [id number] [place] [address] 67527- 0541 Feb, Systolic murmur R01.1 [facility] [id number] [place] [address] 69099- 3889 Feb, [facility] [id number] [place] [address] 02787- 2761 Feb, [facility] [address] [place] [address] 19678- 6631 Feb, Chronic pain syndrome G89.4 [facility] [address] [place] [address] 84145- 8437 Jan, [facility] [id number] [place] [address] 12300- 8355 Jan, Heart murmur on physical examination R01.1 ; Anxiety F41.9 and Chronic pain syndrome G89.4 [facility] [id number], [place] [address]- 1111 Jan, Anxiety F41.9 and Chronic pain syndrome G89.4 [facility] [address] [id number], [place] [address]- 4430 Jan, [facility] [address] [place] [address] 34248- 6030 Jan, Other malaise R53.81 [facility] [address] [place] [address] 47073- 6198 Jan, [facility] [id number] [place] [address] 51379- 0366 Jan, [facility] [address] [place] [address] 05525- 6148 Jan, Chronic pain syndrome G89.4 [facility] [id number] [place] [address] 56960- 5823 December, Other malaise R53.81 [facility] [id number] [place] [address] 99412- 0900 December, Type 2 diabetes mellitus with unspecified complications E11.8 [facility] [address] [place] [address] 78052- 0398 December, Anxiety F41.9 and Chronic pain syndrome G89.4 [facility] [address] [place] [address] 21061- 7744 December, Type 2 diabetes mellitus with unspecified complications E11.8 ; Anxiety F41.9 ; 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 [address], [place] [address] Nov, Type 2 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 and Acute non-recurrent pansinusitis J01.40 [place] [address] 14394- 2717 Nov, Type 2 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 [place] [address] 41283- 7112 Nov, [place] [address] 96475- 6556 Oct, Chronic pain syndrome G89.4 [place] [address] 32182- 8672 Oct, Chronic pain syndrome G89.4 and Anxiety F41.9 [place] [address] 32398- 6770 Oct, Chronic pain syndrome G89.4 [place] [address] 00828- 4486 Sep, Anxiety F41.9 and Chronic pain syndrome G89.4 [place] [address] 61433- 1752 Aug, Chronic pain syndrome G89.4 ; Essential (primary) hypertension I10 ; Dyspepsia R10.13 ; Neuropathy G62.9 ; Mixed hyperlipidemia E78.2 ; Anxiety F41.9 ; Insomnia, unspecified G47.00 and Weight loss, unintentional R63.4 [place] [address] 18892- 6628 Aug, Chronic pain syndrome G89.4 [place] [address] 89222- 4699 Aug, Type 2 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 ; Chronic pain syndrome G89.4 ; 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 and Wound, open, forearm, right, initial encounter S51.801A [place] [address]17[address]- 2546 Jul, [facility] [address], [place] [address]- 7885 Jun, [facility] [id number] [place] [address] 80827- 3407 Jun, [facility] [id number] [place] [address] 63707- 8775 Jun, Chronic pain syndrome G89.4 ; Type 2 diabetes mellitus with unspecified complications E11.8 ; half-way current use of insulin Z79.4 ; Essential (primary) hypertension I10 ; Dyspepsia R10.13 ; Neuropathy G62.9 ; Mixed hyperlipidemia E78.2 ; Anxiety F41.9 ; Insomnia, unspecified G47.00 and Alteration in mobility due to weakness R53.1 [facility] [address] [place] [address] 64414- 6828 May, [facility] [id number] [place] [address] 07096- 2681 May, [facility] [id number] [place] [address] 37334- 4084 May, [facility] [id number] [place] [address] 42868- 4763 May, [facility] [address], [place] [address]- 3398 Apr, [facility] [id number] [place] [address] 99054- 5206 Apr, [facility] [address] [place] [address] 29152- 1223 Apr, [facility] [id number] [place] [address] 10931- 8511 Mar, [facility] [address], [place] [address]- 8825 Mar, Chronic pain syndrome G89.4 ; Type 2 diabetes mellitus with unspecified complications E11.8 ; half-way current use of insulin Z79.4 ; Essential (primary) hypertension I10 ; Dyspepsia R10.13 ; Neuropathy G62.9 ; Mixed hyperlipidemia E78.2 ; Anxiety F41.9 and Insomnia, unspecified G47.00 [place] [address] [place] [address] 97289- 6595 Mar, [place] [id number] [place] [address] 43296- 2399 Mar, [place] [id number] [place] [address] 26321- 7631 Feb, [place] [id number] [place] [address] 12914- 3416 Feb, Chronic pain syndrome G89.4 ; Type 2 diabetes mellitus with unspecified complications E11.8 ; 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 ; Essential (primary) hypertension I10 ; Dyspepsia R10.13 ; Neuropathy G62.9 ; Mixed hyperlipidemia E78.2 ; Anxiety F41.9 and Insomnia, unspecified G47.00 [place] [address] [place] [address] 47552- 5782 Jan, [place] [id number] [place] [address] 00056- 0424 Jan, Chronic pain syndrome G89.4 ; Type 2 diabetes mellitus with unspecified complications E11.8 ; 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 ; Essential (primary) hypertension I10 ; Dyspepsia R10.13 ; Neuropathy G62.9 ; Mixed hyperlipidemia E78.2 ; Anxiety F41.9 and Insomnia, unspecified G47.00 [place] [address] [place] [address] 41422- 6558 Jan, [place] [id number] [place] [address] 67755- 5459 Jan, [place] [id number] [place] [address] 09763- 5841 December, Chronic pain syndrome G89.4 ; Type 2 diabetes mellitus with unspecified complications E11.8 ; 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 ; Essential (primary) hypertension I10 ; Dyspepsia R10.13 ; Neuropathy G62.9 ; Mixed hyperlipidemia E78.2 ; Anxiety F41.9 and Insomnia, unspecified G47.00 [facility] [address], [place] [address]- 9407 December, [facility] [id number] [place] [address] 31278- 2494 Nov, [facility] [id number] [place] [address] 31730- 2893 Nov, [facility] [id number] [place] [address] 72463- 9236 Oct, Chronic pain syndrome G89.4 and Skin infection L08.9 [facility] [id number] [place] [address] 95096- 8088 Oct, [facility] [id number] [place] [address] 75724- 9748 Oct, [facility] [id number] [place] [address] 17632- 4443 Oct, [facility] [address], [place] [address]- 3641 Oct, [facility] [address], [place] [address]- 0229 Oct, [facility] [address], [place] [address]- 2588 Oct, [facility] [address], [place] [address]- 4586 Oct, Chronic pain syndrome G89.4 ; Type 2 diabetes mellitus with unspecified complications E11.8 ; half-way current use of insulin Z79.4 ; Essential (primary) hypertension I10 ; Dyspepsia R10.13 ; Neuropathy G62.9 and Mixed hyperlipidemia E78.2 [facility] [address], [place] [address]- 3173 Oct, [place] [id number] [place] [address] 86195- 5875 Sep, [place] [id number] [place] [address] 82703- 9274 Sep, [place] [id number] [place] [address] 70556- 6459 Sep, Chronic pain syndrome G89.4 [place] [address] [place] [address] 04350- 7860 Aug, [place] [id number] [place] [address] 06607- 4467 Aug, Chronic pain syndrome G89.4 ; Type 2 diabetes mellitus with unspecified complications E11.8 ; 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 ; Essential (primary) hypertension I10 and Dyspepsia R10.13 [place] [address] [place] [address] 76588- 5541 Aug, Rash R21 [place] [id number] [place] [address] 98424- 4586 Aug, [place] [id number] [place] [address] 08819- 7637 Aug, [place] [id number] [place] [address] 37475- 6489 Aug, [place] [id number] [place] [address] 38170- 6147 Aug, Insomnia, unspecified G47.00 ; Chronic pain syndrome G89.4 and Anxiety F41.9 [place] [id number] [place] [address] 09688- 7729 Aug, Depression, major, recurrent, in partial remission F33.41 and Anxiety disorder, unspecified F41.9 [place] [id number] [place] [address] 60428- 2464 Jul, [place] [id number] [place] [address] 09972- 5184 Jul, Chronic pain syndrome G89.4 ; Type 2 diabetes mellitus with unspecified complications E11.8 ; Gastro-esophageal reflux disease with esophagitis K21.0 ; half-way current use of insulin Z79.4 ; Mixed hyperlipidemia E78.2 ; Essential (primary) hypertension I10 ; Otalgia of both ears H92.03 and Alopecia L65.9 [place] [address] 72551- 5967 Jul, [place] [address] 05775- 9615 Jul, [place] [address] 88732- 0424 Jul, Anxiety F41.9 and Depressive disorder, not elsewhere classified 311 [place] [address] 77452- 7506 Jul, [place] [id number] [place] [address] 11792- 0456 Jul, Insomnia, unspecified G47.00 ; Anxiety disorder, unspecified F41.9 and Major depressive disorder, single episode, unspecified F32.9 [place] [id number] [place] [address] 27193- 2455 Jun, [place] [id number] [place] [address] 40827- 7763 Jun, Insomnia, unspecified G47.00 ; Generalized psoriasis L40.1 and Chronic pain syndrome G89.[address] 75919- 6195 Jun, [place] [id number] [place] [address] 41452- 2102 Jun, [place] [address] 88507- 6717 Jun, Depressive disorder, not elsewhere classified 311 and Anxiety F41.9 [facility] [id number] [place] [address] 89457- 6624 Jun, Generalized psoriasis L40.1 [facility] [id number] [place] [address] 71311 -1073 Jun, Dermatitis L30.9 [facility] [address] 98491- 9643 May, Insomnia, unspecified G47.00 ; Chronic pain syndrome G89.4 and GERD (gastroesophageal reflux disease) K21.9 [place] [address] 26098- 8346 May, Insomnia, unspecified G47.00 ; Anxiety disorder, unspecified F41.9 and Major depressive disorder, single episode, unspecified F32.9 [place] [address] 00227- 8997 May, Depressive disorder, not elsewhere classified 311 and Anxiety F41.9 [place] [id number] [place] [address] 22519- 1994 May, [place] [address] 86848- 0193 May, Insomnia, unspecified G47.00 and Encounter for immunization Z23 [id number] [place] [address] 31072- 2028 May, [id number] [place] [address] 89479- 7237 May, Chronic pain syndrome G89.4 ; Mixed hyperlipidemia E78.2 ; Type 2 diabetes mellitus with unspecified complications E11.8 ; Essential ( primary) hypertension I10 ; Anxiety F41.9 ; Insomnia, unspecified G47.00 ; 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 M79.7 and 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 [id number] [place] [address] 33861- 6962 Apr, [facility] [address], [place] [address]- 9925 Apr, Dyspepsia 536.8 and Insomnia 780.52 [facility] [address] [place] [address] 887195- 3969 Apr, Other malaise and fatigue 780.79 [facility] [id number] [place] [address] 31098- 4696 Apr, [facility] [id number] [place] [address] 04126- 5228 Mar, Diabetes with neurological manifestations, type II or unspecified type, not stated as uncontrolled 250.60 ; Other chronic pain 338.29 ; Essential hypertension, benign 401.1 ; Anxiety state, unspecified 300.00 ; Insomnia 780.52 and Hyperlipidemia 272.4 [place] [id number] [place] [address] 15390- 9646 Mar, [facility] [id number] [place] [address] 43347- 9672 Feb, [facility] [id number] [place] [address] 92235- 5418 Feb, [facility] [id number] [place] [address] 39943- 0518 Feb, [facility] [id number] [place] [address] 68554- 7878 Feb, [facility] [id number] [place] [address] 84713- 1196 Feb, [facility] [id number] [place] [address] 80312- 8331 Jan, Depressive disorder, not elsewhere classified 311 and Dyssomnia 780.56 [facility] [address] [place] [address] 55675- 9936 Jan, Diabetes with neurological manifestations, type II or unspecified type, not stated as uncontrolled 250.60 ; Other chronic pain 338.29 ; Essential hypertension, benign 401.1 ; Anxiety state, unspecified 300.00 ; Insomnia 780.52 and Hyperlipidemia 272.4 [facility] [address], [place] [address]- 1742 Jan, [facility] [address], [place] [address]- 3646 Jan, [facility] [id number] [place] [address] 36316- [phone] Jan, [facility] [id number] [place] [phone] Jan, [facility] [id number] [place] [id number]- [phone] Jan, [facility] [id number] [place] [phone]- [id number] Jan, [facility] [id number] [place] [id number] December, [facility] [id number], [place] [address] December, [facility] [id number] [place] [phone] December, [facility] [id number], [place] [address] December, [facility] [address] [id number], [place] [address] December, Anxiety state, unspecified 300.00 ; Other chronic pain 338.29 ; Diabetes with neurological manifestations, type II or unspecified type , not stated as uncontrolled 250.60 ; Essential hypertension, benign 401.1 ; Compression fracture of thoracic spine, non-traumatic 733.13 ; Wrist fracture, left 814.00 and Fall at home E888.9 [facility] [address], [place] [address] December, [facility] [id number] [place] [address] December, [facility] [place] [facility] [address] [id number] [place] [address] Nov, [facility] [place] [facility] [address] [id number] [place] [address] Nov, [facility] [place] [facility] [address] [id number] [place] [address] Nov, [facility] [place] [facility] [address] [id number] [place] [address] Nov, [facility] [place] [facility] [address] [id number] [place] [address] Oct, [facility] [place] [facility] [address] [id number] [place] [address] Oct, [facility] [place] [facility] [address] [facility] [id number] [place] [address] Oct, [facility] [place] [facility] [address] [facility] [id number] [place] [address] Oct, [facility] [place] [facility] [address] [id number] [place] [address] Oct, [facility] [place] [facility] [address] [facility] [id number] [place] [address] Oct, [facility] [place] [facility] [address] [id number] [place] [address] Oct, [facility] [place] [facility] [address] [facility] [id number] [place] [address] Oct, [facility] [place] [facility] [address] [id number] [place] [address] Sep, [facility] [place] [facility] [address] [facility] [id number] [place] [address] Sep, [facility] [place] [facility] [address] [facility] [id number] [place] [address] Sep, [facility] [id number], [place] [address] Sep, [facility] [address], [place] [address] Aug, [facility] [id number], [place] [address] Aug, [facility] [address], [place] [address] Aug, [facility] [id number], [place] [address] Aug, [facility] [id number] [place] [address] Aug, [facility] [address], [place] [address] Aug, [facility] [address], [place] [address] Aug, [facility] [id number] [address] Aug, IMMUNIZATIONS No Known Immunizations SOCIAL HISTORY Never Assessed REASON FOR VISIT Pain PLAN OF CARE VITAL SIGNS MEDICATIONS Unknown [...]
--- NOTE | 2018-01-19 07:15 | ED Back Pain ---
General Chief Complaint: Back Problems Stated Complaint: BACK AND HIP PAIN Nursing Triage Note: ARRIVED VIA WC TO ROOM 06. COMPLAINS OF PAIN FROM RIGHT HIP RADIATING TO RIGHT LEG. STATES SHE HAS TAKEN A HYDROCODONE AND A MUSCLE RELAXER THAT HAS NOT HELPED. Nursing Sepsis Screen: No Definite Risk Source of Information: Patient Exam Limitations: No Limitations History of Present Illness Date Seen by Provider: Jan 19, 2018 Time Seen by Provider: 06:55 Initial Comments Here with report of right-sided low back pain that radiates across the buttock into the right upper leg. She is concerned she may have broke her hip or something. She states she has not fallen and there is no reason why she would' ve broken out but it hurts like that. States the pain started after having a colonoscopy done earlier this week. Colonoscopy was on Saturday. Pain started on Saturday morning and has worsened since. Seen on Saturday for the pain and given 2 shots and pain medication prescription. She is to see her doctor this week. Pain worsened overnight. She took a hydrocodone late last night and another one early this morning. She also took a muscle relaxer and that has not helped. Timing/Duration: 12 Hours Severity: Moderate, Severe Pain/Injury Location: Back, Lower Extremity, Pelvis Radiation: Buttocks, Upper Legs Method of Injury: Unknown Modifying Factors: Worse With Movement; Improves With Pain Medication Associated Symptoms: No weakness, No numbness in legs/feet, No tingling in legs /feet, No sensory/motor loss; lower back pain; No loss of bladder control, No loss of bowel control Allergies and Home Medications Allergies Coded Allergies: famotidine (Verified Allergy, Severe, HAIR LOSS, 01/04/17) NOTIFIED ON 01/02/17 TO MEDICAL RECORDS aspirin (Unverified Allergy, Unknown, 11/23/16) hydromorphone (Unverified Allergy, Unknown, 11/23/16) triazolam (Unverified Allergy, Unknown, 11/23/16) Uncoded Allergies: TAPE (Allergy, Mild, RASH, 11/23/16) Home Medications Hydrocodone/Acetaminophen 1 Each Tablet, 1 EACH PO Q6H PRN for PAIN-SEVERE Prescribed by: CHARLETTE CHAPPELL on 01/17/18 1557 Insulin Aspart 100 Unit/1 Ml Susp, 13 UNIT SQ TIDWM, (Reported) Insulin Detemir 100 Unit/1 Ml Insuln.pen, 40 UNIT SQ HS, (Reported) Metformin HCl 500 Mg Tab.er.24h, 500 MG PO HS, (Reported) Neotsu-3 Fatty Acids/Fish Oil 1 Each Capsule, 1,000 MG PO BID, (Reported) Pantoprazole Sodium 40 Mg Tablet.dr, 40 MG PO DAILY Prescribed by: GENARO MCPHERSON on 01/14/18 1401 Pravastatin Sodium 20 Mg Tablet, 20 MG PO HS, (Reported) Pregabalin 50 Mg Capsule, 50 MG PO BID, (Reported) Patient Home Medication List Home Medication List Reviewed: Yes Constitutional: see HPI; No chills, No fever Respiratory: no symptoms reported Cardiovascular: no symptoms reported Gastrointestinal: no symptoms reported Genitourinary: no symptoms reported Musculoskeletal: see HPI, back pain, joint pain, muscle pain Skin: no symptoms reported Past Atobctb-Nodlyc-Thzwqr Hx Past Med/Social Hx: Reviewed Nursing Past Med/Soc Hx Patient Social History Alcohol Use: Rarely Uses Recreational Drug Use: No Smoking Status: Never a Smoker 2nd Hand Smoke Exposure: Yes Recent Foreign Travel: No Contact w/Someone Who Travel: No Recent Infectious Disease Expo: No Recent Hopitalizations: No Immunizations Up To Date Tetanus Booster (TDap): Unknown PED Vaccines UTD: No Date of Pneumonia Vaccine: Jun 12, 2014 Date of Influenza Vaccine: May 21, 2016 Seasonal Allergies Seasonal Allergies: No Past Medical History Surgeries: Yes (KNEE, SHOULDERS BILAT, CSPINE SURGERY ) Section, Gallbladder, Orthopedic Respiratory: No Cardiac: Yes Heart Murmur, Hypertension Neurological: Yes (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) Stroke Reproductive Disorders: No Sexually Transmitted Disease: No HIV/AIDS: No Genitourinary: Yes UTI-Chronic Gastrointestinal: Yes (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; HX OF HEPATITIS A AND C-- NO TREATMENT; JOSE) Liver Disease/Jaundice, Chronic Constipation, Diverticulosis, Pancreatitis, Chronic Diarrhea, Gall Bladder Disease Musculoskeletal: Yes (hx broken pelvis and hips from horse accident, no surgery ) Arthritis, Chronic Back Pain, Fractures Endocrine: Yes (LONG HISTORY OF NON-COMPLIANCE; ) Diabetes, Insulin dep HEENT: Yes Loss of Vision: Bilateral Hearing Impairment: Hard of Hearing Cancer: No Psychosocial: Yes Sleep Difficulties, Anxiety Integumentary: No Blood Disorders: No Adverse Reaction/Blood Tranf: No (HAS HAD BLOOD WITH NO REACTION) Family Medical History Reviewed Nursing Family Hx Arthritis G8 SISTER Cardiovascular disease 19 MOTHER Diabetes mellitus 19 MOTHER G8 BROTHER Hypertension 19 MOTHER G8 BROTHER G8 BROTHER Myocardial infarction 19 MOTHER G8 BROTHER No Family History of: AIDS Abdominal aortic aneurysm Gordon's disease Alcoholism Alzheimer's disease Aphasia Asthma Cancer of mouth Cataracts Colon cancer Completed stroke Congenital disease Congenital heart disease Coronary thrombosis Cystic fibrosis Deafness or hearing loss Dementia Drug abuse Dysphasia Fibrocystic disease of breast Gastroenteritis Glaucoma Headache disorder Hypercholesterolemia Infertility Kidney disease Neoplasm Not obtainable due to adoption Osteoporosis Parkinson's disease Prostate cancer Psychosocial problem Respiratory disorder Seizure disorder Severe allergy Thyroid disease Tuberculosis Visual disorder Physical Exam Vital Signs Vital Signs - First Documented 01/19/18 06:51 Temp 98.0 Pulse 94 Resp 16 B/P (MAP) 197/106 (136) Pulse Ox 92 O2 Delivery Room Air Capillary Refill : Less Than 3 Seconds General Appearance: Anxious, Moderate Distress HEENT: PERRL/EOMI, Pharynx Normal Neck: Non Tender, Supple Cardiovascular: Regular Rate, Rhythm, Systolic Murmur Respiratory: Lungs Clear, Normal Breath Sounds Back: Decreased Range of Motion, Muscle Spasm Extremity: Non Tender, Pelvis Stable Neurologic/Psychiatric: Alert, Oriented x3, Abnormal Gait (pain limited) Skin: Normal Color, Warm/Dry Progress/Results/Core Measures Results/Orders My Orders Orders - KYLE IVEY MD Acute Abd Series (01/19/18 07:07) Pelvis With Right Hip 2-3views (01/19/18 07:07) Ketorolac Injection (Toradol Injection) (01/19/18 07:07) Morphine Injection (Morphine Injection (01/19/18 07:07) Vital Signs/I&O 01/19/18 06:51 Temp 98.0 Pulse 94 Resp 16 B/P (MAP) 197/106 (136) Pulse Ox 92 O2 Delivery Room Air Blood Pressure Mean: 136 Progress Progress Note : Progress Note Seen and evaluated. Reviewed previous chart. I will repeat dosing done previously with Toradol 60 mg IM and morphine 8 mg IM. We will get acute abdominal series and pelvic films with right hip given her recent history concerns. 0820: Overall much better. We will initiate steroid therapy. Discharged home with return precautions. Patient family verbalize understanding instructions and agreement with plan. Diagnostic Imaging Diagonstic Imaging: Xray Plain Films/CT/US/NM/MRI: pelvis, hip [email or web address] [place], [place] NAME: JERMAINE VENEGAS [facility] REC#: [id number] PT STATUS: REG ER : 1940 PHYSICIAN: KYLE IVEY MD ADMIT DATE: 01/19/18/ER Draft Date of Exam:01/19/18 PELVIS WITH RIGHT HIP 2-3VIEWS INDICATION: Right hip pain. COMPARISON: Abdominal radiograph series performed concurrently. TECHNIQUE: AP pelvis with AP and frog-leg lateral views of the right hip. FINDINGS: Diffuse osseous demineralization is present. Extensive bowel gas and stool limits evaluation of the pelvis. No fracture or traumatic malalignment involving the right hip. Moderate osteoarthritis of the right hip. Extensive vascular calcifications. IMPRESSION: 1. Extensive stool burden suggests constipation. 2. Moderate osteoarthritis of the right hip is without fracture. Dictated on workstation # [id number] Dict: 01/19/18 0751 Trans: 01/19/18 0801 [facility] [id number] Interpreted by: PRABHJOT MURGUIA MD Electronically signed by: Diagonstic Imaging: Xray Plain Films/CT/US/NM/MRI: chest, abdomen Comments No acute findings other than constipation. Departure Impression Primary Impression: Lumbar radiculopathy Additional Impression: Constipation Qualified Codes: K59.00 - Constipation, unspecified Disposition: 01 HOME, SELF-CARE Condition: Improved Departure-Patient Inst. Decision time for Depature: 08:26 Referrals: [facility] [place] (PCP) Primary Care Physician LANIE BRIONES (Family) Primary Care Physician Patient Instructions: Constipation, Adult (DC), Radiculopathy (DC) Add. Discharge Instructions: All discharge instructions reviewed with patient and/or family. Voiced understanding. You may take MiraLAX [id number] or the generic one capful twice daily for the next 3 days and then one half capful twice daily thereafter to keep stools soft. He may increase or decrease the dose to get appropriate results. Drink plenty of fluids. Take other medications as directed. Call your doctor tomorrow morning for appointment early this week. Return for worse pain, weakness, problems walking or going to the bathroom or other concerns as needed. You should especially avoid sugary snacks or foods this week while taking the steroids as that will increase her sugars. Monitor your sugars several times daily. Continue other medications as previously prescribed. Scripts Prednisone (Prednisone) 20 Mg Tab 40 MG PO DAILY, #10 TAB 0 Refills Prov: KYLE IVEY MD 01/19/18 KYLE IVEY MD Jan 19, 2018 07:15
--- NOTE | 2018-01-19 08:01 | Diagnostic Imaging Report ---
INDICATION: Right hip pain. COMPARISON: Abdominal radiograph series performed concurrently. TECHNIQUE: AP pelvis with AP and frog-leg lateral views of the right hip. FINDINGS: Diffuse osseous demineralization is present. Extensive bowel gas and stool limits evaluation of the pelvis. No fracture or traumatic malalignment involving the right hip. Moderate osteoarthritis of the right hip. Extensive vascular calcifications. IMPRESSION: 1. Extensive stool burden suggests constipation. 2. Moderate osteoarthritis of the right hip is without fracture. Dictated by: Dictated on workstation # [id number]
--- NOTE | 2018-01-19 08:03 | Diagnostic Imaging Report ---
INDICATION: Back pain. COMPARISON: 11/22/2017. FINDINGS: There is cardiomegaly. The lungs are clear. There is no pleural effusion or pneumothorax. The mediastinum is unremarkable. IMPRESSION: No acute cardiopulmonary abnormality. Cardiomegaly. Dictated by: Dictated on workstation # [id number]
[2018-01-19] MEDS ORDERED: PRD20T PO (08:28)
[2018-01-19 08:42] VITALS: BP 178/86
== END 2018-01-19 08:42 | disposition home or self-care (01) ==
LOC: EDUNIT# 06:47 → ER 06:49
DX: M54.16 Radiculopathy, lumbar region (principal); K59.00 Constipation, unspecified; I10 Essential (primary) hypertension; E11.9 Type 2 diabetes mellitus without complications; F41.9 Anxiety disorder, unspecified; Z86.73 Personal history of transient ischemic attack (TIA), and cerebral infarction without residual deficits; Z77.22 Contact with and (suspected) exposure to environmental tobacco smoke (acute) (chronic); Z87.59 Personal history of other complications of pregnancy, childbirth and the puerperium; Z79.4 Long term (current) use of insulin; Z88.5 Allergy status to narcotic agent; Z87.81 Personal history of (healed) traumatic fracture; Z91.14 Patient's other noncompliance with medication regimen
CPT/HCPCS: 74022; 96372

== ENCOUNTER 2018-01-20 21:34 | Observation (INO) | payer MEDICARE ==
[~2018-01-20] VITALS: Ht 152.4 cm; Wt 75.1 kg
[~2018-01-20 21:34] MED LIST changes: +PRD20T PO
--- OUTSIDE RECORDS SUMMARY | 2018-01-20 21:41 | XMS REPORT | Clinical Summary ---
Author Author [facility] Organization [facility] Address Unknown Phone Unavailable Care Team Providers Care Bladder Tier Name Role Phone Adolfo Ryan MD Unavailable Yvan Canas MD Unavailable Source Comments Some departments are not documenting in the electronic medical record. If you do not see the information that you expected, contact Release of Information in the Health Information Management department at [phone] for further assistance in locating additional records.[facility] Allergies Active Allergy Reactions Severity Noted [...]
--- OUTSIDE RECORDS SUMMARY | 2018-01-20 21:41 | XMS REPORT | Clinical Summary ---
Author Author [facility] Organization [facility] Address Unknown Phone Unavailable Care Team Providers Care Inbound Ingredient Logistics Specialist Name Role Phone Solomon Joradn MD PP Allergies Active Allergy Reactions Severity [...] Taken Blood Pressure 190/100 06/28/2014 1:38 PM [facility] NURSE Pulse - - Temperature - - Respiratory Rate - - Oxygen Saturation - - Inhaled Oxygen - - Concentration Weight 76.7 kg (169 lb) 06/28/2014 1:38 PM [facility] NURSE Height 152.4 cm (5') 10/29/2013 1:20 PM CDT Body Mass Index 33.01 06/28/2014 1:38 PM [facility] NURSE Plan of Treatment Health Maintenance Due Date Last Done Comments DTaP,Tdap,and Td Vaccines 1961 (1 - Tdap) Colon Cancer Screening 1992 Zoster Recombinant 1992 Vaccine (RZV,Shingrix) (1 of 2 - [facility] 2 Dose Standard) Pneumo-Adult (1 of 2 - 2007 PCV13) Influenza Vaccine (Season 04/12/2018 Ended) Results Not on filefrom Last 3 Months
--- OUTSIDE RECORDS SUMMARY | 2018-01-20 21:47 | XMS REPORT ---
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 Name Role Phone LANIE BRIONES Unavailable PROBLEMS Type Condition ICD9-CM Code VNU43-YA Code Onset Dates Condition Status SNOMED Code Diagnosis Essential (primary) hypertension I10 Active 59436593 Problem Type 2 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 Active 61339248 Problem Generalized psoriasis L40.1 Active 241758798 Problem Anxiety state, unspecified F41.1 Active 417397261 Problem Depression, unspecified depression type F32.9 Active 51330281 Problem Systolic murmur R01.1 Active 24084855 Problem Major depressive disorder, single episode, unspecified F32.9 Active 44868106 Problem Mild neurocognitive disorder G31.84 Active 400616915 Problem Recurrent major depressive disorder, in partial remission F33.41 Active 01507013 Diagnosis Anxiety F41.9 Active 02955659 Problem termite helper current use of insulin Z79.4 Active 507268755 Diagnosis Chronic pain syndrome G89.4 Active 46358149 Problem Insomnia, unspecified G47.00 Active 008055221 Problem 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 M79.7 Active 69352341 Diagnosis Arthritis M19.90 Active 7253419 Diagnosis Gastro-esophageal reflux disease with esophagitis K21.0 Active 454619099 Diagnosis Mixed hyperlipidemia E78.2 Active 448383433 ALLERGIES No Information ENCOUNTERS Encounter Location Date Diagnosis [facility] [address] [facility] [id number] [address] Jan, [facility] [address] [place] [address] 36432- 6271 Jan, [facility] [id number] [address] 6553 Jan, Gastro-esophageal reflux disease with esophagitis K21.0 and Dyspepsia R10.13 [place] [id number] [place] [address] 63749- 9897 Jan, Mild neurocognitive disorder G31.84 ; Depression, unspecified depression type F32.9 and Anxiety state, unspecified F41.1 [facility] [place] [address] [place] [address] 05747- 0625 December, Chronic pain syndrome G89.4 ; Type 2 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 ; Systolic murmur R01.1 ; Mixed hyperlipidemia E78.2 ; Anxiety F41.9 ; Essential (primary) hypertension I10 ; Gastro- esophageal reflux disease with esophagitis K21.0 ; Insomnia, unspecified G47.00 ; termite helper current use of insulin Z79.4 ; 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 M79.7 ; Generalized psoriasis L40.1 and Recurrent major depressive disorder, in partial remission F33.41 [place] [id number] [place] [address] 63723- 3002 December, Systolic murmur R01.1 [place] [place] [id number] [place] [address] 61300- 2368 December, [facility] [id number] [place] [address] 41877- 9616 December, Chronic pain syndrome G89.4 and Opioid overdose, accidental or unintentional, initial encounter T40.2X1A [facility] [id number] [place] [address] 04484- 0740 December, [facility] [id number] [place] [address] 72592- 4457 Nov, [facility] [id number] [place] [address] 77376- 5029 Nov, [facility] [id number] [place] [address] 38139- 7822 Nov, Type 2 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 ; Essential (primary) hypertension I10 ; Chronic pain syndrome G89.4 and Arthritis M19.90 [facility] [address] [id number] [address] 4307 Nov, Major depressive disorder, single episode, unspecified F32.9 and Chronic pain syndrome G89.4 [facility] [id number] [place] [address] 79129- 8966 Nov, Chronic pain syndrome G89.4 [facility] [address] [place] [address] 09285- 6386 Oct, Chronic pain syndrome G89.4 and Anxiety F41.9 [facility] [id number] [place] [address] 00446- 3423 Oct, Major depressive disorder, single episode, unspecified F32.9 [facility] [id number] [place] [address] 14149- 9556 Oct, Chronic pain syndrome G89.4 and Anxiety F41.9 [facility] [id number] [place] [address] 76105- 3348 Oct, [facility] [id number] [place] [address] 95530- 0810 Sep, Major depressive disorder, single episode, unspecified F32.9 and Chronic pain syndrome G89.4 [facility] [address] [address] 5930 Sep, [facility] [address] [place] [address] 20893- 9838 Aug, Chronic pain syndrome G89.4 and Anxiety F41.9 [facility] [address] [place] [address] 00695- 4518 Aug, Chronic pain syndrome G89.4 and Anxiety F41.9 [facility] [address] [place] [address] 76441- 4611 Aug, [facility] [address] [address] 7446 Aug, Anxiety F41.9 and Chronic pain syndrome G89.4 [facility] [id number] [place] [address] 16219- 2932 Aug, [facility] [address] 27517- 2880 Aug, Anxiety F41.9 ; Chronic pain syndrome G89.4 and Insomnia, unspecified G47.00 [facility] [address] 54826- 3087 Jul, Chronic pain syndrome G89.4 ; Insomnia, unspecified G47.00 ; Type 2 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 ; senior living current use of insulin Z79.4 ; Anxiety F41.9 and Essential (primary) hypertension I10 [facility] [id number] [place] [address] 75452- 1971 Jul, [facility] [address] 25763- 3898 Jul, [facility] [id number] [place] [address] 41224- 3276 Jul, [facility] [address] 23752- 4833 Jul, Encounter for immunization Z23 [facility] [id number] [place] [address] 06291- 5695 Jun, [facility] [id number] [place] [address] 04461- 4453 Jun, [facility] [id number] [place] [address] 08958- 0736 May, [facility] [address] 60166- 4517 May, [facility] [id number] [place] [address] 15827- 1851 May, [facility] [id number] [place] [address] 56843- 5595 Apr, Chronic pain syndrome G89.4 ; Anxiety F41.9 and Dyspepsia R10.13 [facility] [address] [place] [address] 91517- 0356 Apr, [facility] [id number] [place] [address] 32731- 2186 Mar, Chronic pain syndrome G89.4 and Anxiety F41.9 [facility] [id number] [place] [address] 37574- 8922 Mar, Chronic pain syndrome G89.4 [facility] [id number] [place] [address] 38832- 1490 Feb, Chronic pain syndrome G89.4 and Anxiety F41.9 [facility] [id number] [place] [address] 74951- 1023 Feb, [facility] [id number] [place] [address] 70716- 8177 Feb, Systolic murmur R01.1 [facility] [id number] [place] [address] 06815- 4339 Feb, [facility] [id number] [place] [address] 96123- 3256 Feb, [facility] [address] [place] [address] 64388- 4973 Feb, Chronic pain syndrome G89.4 [facility] [address] [place] [address] 64260- 1945 Jan, [facility] [id number] [place] [address] 85911- 1560 Jan, Heart murmur on physical examination R01.1 ; Anxiety F41.9 and Chronic pain syndrome G89.4 [facility] [id number] [address]- 9311 Jan, Anxiety F41.9 and Chronic pain syndrome G89.4 [facility] [id number] [address]- 2695 Jan, [facility] [address] [place] [address] 85145- 0486 Jan, Other malaise R53.81 [facility] [address] [place] [address] 74080- 9507 Jan, [facility] [id number] [place] [address] 36025- 2281 Jan, [facility] [address] [place] [address] 48561- 9780 Jan, Chronic pain syndrome G89.4 [facility] [id number] [place] [address] 62492- 7152 December, Other malaise R53.81 [facility] [id number] [place] [address] 82208- 3378 December, Type 2 diabetes mellitus with unspecified complications E11.8 [facility] [address] [place] [address] 93120- 3735 December, Anxiety F41.9 and Chronic pain syndrome G89.4 [facility] [address] [place] [address] 17382- 3763 December, Type 2 diabetes mellitus with unspecified complications E11.8 ; Anxiety F41.9 ; termite helper current use of insulin Z79.4 and Chronic pain syndrome G89.4 [facility] [address] [address]- 5691 Nov, [facility] [address] [address]- 0225 Nov, [facility] [address] [place] [address] 52975- 2856 Nov, Anxiety F41.9 and Chronic pain syndrome G89.4 [facility] [address] [address]2459 Nov, Type 2 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 and Acute non-recurrent pansinusitis J01.40 [place] [address] 86293- 9656 Nov, Type 2 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 [place] [address] 50170- 3879 Nov, [place] [address] 31804- 0935 Oct, Chronic pain syndrome G89.4 [facility] [address] 14415- 2815 Oct, Chronic pain syndrome G89.4 and Anxiety F41.9 [facility] [address] 49683- 1571 Oct, Chronic pain syndrome G89.4 [place] [address] 48497- 2252 Sep, Anxiety F41.9 and Chronic pain syndrome G89.4 [place] [address] 20538- 6394 Aug, Chronic pain syndrome G89.4 ; Essential (primary) hypertension I10 ; Dyspepsia R10.13 ; Neuropathy G62.9 ; Mixed hyperlipidemia E78.2 ; Anxiety F41.9 ; Insomnia, unspecified G47.00 and Weight loss, unintentional R63.4 [place] [address] 84435- 4800 Aug, Chronic pain syndrome G89.4 [place] [address] 71581- 9640 Aug, Type 2 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 ; Chronic pain syndrome G89.4 ; termite helper current use of insulin Z79.4 and Wound, open, forearm, right, initial encounter S51.801A [place] [address] [place]- 2546 Jul, [facility] [address] [address]- 0491 Jun, [facility] [id number] [place] [address] 29073- 0767 Jun, [facility] [id number] [place] [address] 87188- 4131 Jun, Chronic pain syndrome G89.4 ; Type 2 diabetes mellitus with unspecified complications E11.8 ; senior living current use of insulin Z79.4 ; Essential (primary) hypertension I10 ; Dyspepsia R10.13 ; Neuropathy G62.9 ; Mixed hyperlipidemia E78.2 ; Anxiety F41.9 ; Insomnia, unspecified G47.00 and Alteration in mobility due to weakness R53.1 [facility] [address] [place] [address] 17424- 5276 May, [facility] [id number] [place] [address] 61178- 4931 May, [facility] [id number] [place] [address] 88160- 7705 May, [facility] [id number] [place] [address] 06981- 7192 May, [facility] [address] [address]- 9630 Apr, [facility] [id number] [place] [address] 02132- 1294 Apr, [facility] [address] [place] [address] 34365- 5263 Apr, [facility] [id number] [place] [address] 71798- 1369 Mar, [facility] [address] [address]- 8809 Mar, Chronic pain syndrome G89.4 ; Type 2 diabetes mellitus with unspecified complications E11.8 ; senior living current use of insulin Z79.4 ; Essential (primary) hypertension I10 ; Dyspepsia R10.13 ; Neuropathy G62.9 ; Mixed hyperlipidemia E78.2 ; Anxiety F41.9 and Insomnia, unspecified G47.00 [place] [address] [place] [address] 21946- 3655 Mar, [place] [id number] [place] [address] 87074- 8865 Mar, [place] [id number] [place] [address] 15575- 7262 Feb, [place] [id number] [place] [address] 84533- 5903 Feb, Chronic pain syndrome G89.4 ; Type 2 diabetes mellitus with unspecified complications E11.8 ; termite helper current use of insulin Z79.4 ; Essential (primary) hypertension I10 ; Dyspepsia R10.13 ; Neuropathy G62.9 ; Mixed hyperlipidemia E78.2 ; Anxiety F41.9 and Insomnia, unspecified G47.00 [place] [address] [place] [address] 96295- 7043 Jan, [place] [place] [id number] [place] [address] 35156- 1710 Jan, Chronic pain syndrome G89.4 ; Type 2 diabetes mellitus with unspecified complications E11.8 ; termite helper current use of insulin Z79.4 ; Essential (primary) hypertension I10 ; Dyspepsia R10.13 ; Neuropathy G62.9 ; Mixed hyperlipidemia E78.2 ; Anxiety F41.9 and Insomnia, unspecified G47.00 [place] [address] [place] [address] 10744- 6418 Jan, [place] [id number] [place] [address] 71520- 2690 Jan, [facility] [id number] [place] [address] 65192- 0119 December, Chronic pain syndrome G89.4 ; Type 2 diabetes mellitus with unspecified complications E11.8 ; termite helper current use of insulin Z79.4 ; Essential (primary) hypertension I10 ; Dyspepsia R10.13 ; Neuropathy G62.9 ; Mixed hyperlipidemia E78.2 ; Anxiety F41.9 and Insomnia, unspecified G47.00 [facility] [address] [address]- 9582 December, [facility] [id number] [place] [address] 44937- 2483 Nov, [facility] [id number] [place] [address] 55724- 1260 Nov, [facility] [id number] [place] [address] 77416- 3928 Oct, Chronic pain syndrome G89.4 and Skin infection L08.9 [facility] [id number] [place] [address] 87698- 1786 Oct, [facility] [id number] [place] [address] 26028- 3460 Oct, [facility] [id number] [place] [address] 86635- 5176 Oct, [facility] [address] [address]- 1621 Oct, [facility] [address] [address]- 6702 Oct, [facility] [address] [address]- 1861 Oct, [facility] [address] [address]- 6588 Oct, Chronic pain syndrome G89.4 ; Type 2 diabetes mellitus with unspecified complications E11.8 ; senior living current use of insulin Z79.4 ; Essential (primary) hypertension I10 ; Dyspepsia R10.13 ; Neuropathy G62.9 and Mixed hyperlipidemia E78.2 [facility] [address] [address]- 7355 Oct, [place] [id number] [place] [address] 02851- 5130 Sep, [place] [place] [id number] [place] [address] 99123- 2384 Sep, [facility] [id number] [place] [address] 62665- 9375 Sep, Chronic pain syndrome G89.4 [place] [address] [place] [address] 42816- 6698 Aug, [facility] [id number] [place] [address] 33166- 9788 Aug, Chronic pain syndrome G89.4 ; Type 2 diabetes mellitus with unspecified complications E11.8 ; termite helper current use of insulin Z79.4 ; Essential (primary) hypertension I10 and Dyspepsia R10.13 [place] [address] [place] [address] 02252- 4640 Aug, Rash R21 [place] [id number] [place] [address] 83969- 8269 Aug, [facility] [id number] [place] [address] 54409- 7343 Aug, [facility] [id number] [place] [address] 10313- 2903 Aug, [facility] [place] [id number] [place] [address] 01781- 1783 Aug, Insomnia, unspecified G47.00 ; Chronic pain syndrome G89.4 and Anxiety F41.9 [place] [place] [id number] [place] [address] 17687- 0655 Aug, Depression, major, recurrent, in partial remission F33.41 and Anxiety disorder, unspecified F41.9 [place] [place] [id number] [place] [address] 91032- 8834 Jul, [place] [id number] [place] [address] 44136- 7235 Jul, Chronic pain syndrome G89.4 ; Type 2 diabetes mellitus with unspecified complications E11.8 ; Gastro-esophageal reflux disease with esophagitis K21.0 ; senior living current use of insulin Z79.4 ; Mixed hyperlipidemia E78.2 ; Essential (primary) hypertension I10 ; Otalgia of both ears H92.03 and Alopecia L65.9 [place] [address] 61849- 2651 Jul, [place] [address] 49520- 8459 Jul, [place] [address] 81061- 7574 Jul, Anxiety F41.9 and Depressive disorder, not elsewhere classified 311 [place] [address] 90899- 5194 Jul, [facility] [id number] [place] [address] 74836- 7258 Jul, Insomnia, unspecified G47.00 ; Anxiety disorder, unspecified F41.9 and Major depressive disorder, single episode, unspecified F32.9 [facility] [place] [id number] [place] [address] 40842- 6972 Jun, [facility] [id number] [place] [address] 10197- 2793 Jun, Insomnia, unspecified G47.00 ; Generalized psoriasis L40.1 and Chronic pain syndrome G89.[address] 18127- 7205 Jun, [place] [id number] [place] [address] 28725- 8861 Jun, [place] [address] 24105- 5378 Jun, Depressive disorder, not elsewhere classified 311 and Anxiety F41.9 [facility] [id number] [place] [address] 31693- 2829 Jun, Generalized psoriasis L40.1 [facility] [id number] [place] [address] 96103 -4229 Jun, Dermatitis L30.9 [facility] [address] 01436- 8993 May, Insomnia, unspecified G47.00 ; Chronic pain syndrome G89.4 and GERD (gastroesophageal reflux disease) K21.9 [place] [address] 33279- 9614 May, Insomnia, unspecified G47.00 ; Anxiety disorder, unspecified F41.9 and Major depressive disorder, single episode, unspecified F32.9 [facility] [address] 68142- 0016 May, Depressive disorder, not elsewhere classified 311 and Anxiety F41.9 [facility] [place] [id number] [place] [address] 00910- 0147 May, [place] [address] 64577- 0457 May, Insomnia, unspecified G47.00 and Encounter for immunization Z23 [place] [id number] [place] [address] 56183- 6645 May, [place] [id number] [place] [address] 99193- 0470 May, Chronic pain syndrome G89.4 ; Mixed hyperlipidemia E78.2 ; Type 2 diabetes mellitus with unspecified complications E11.8 ; Essential ( primary) hypertension I10 ; Anxiety F41.9 ; Insomnia, unspecified G47.00 ; 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 M79.7 and termite helper current use of insulin Z79.4 [place] [id number] [place] [address] 97107- 8941 Apr, [facility] [address] [address]- 7060 Apr, Dyspepsia 536.8 and Insomnia 780.52 [facility] [address] [place] [address] 448401- 5339 Apr, Other malaise and fatigue 780.79 [facility] [id number] [place] [address] 83680- 9240 Apr, [facility] [id number] [place] [address] 11858- 1034 Mar, Diabetes with neurological manifestations, type II or unspecified type, not stated as uncontrolled 250.60 ; Other chronic pain 338.29 ; Essential hypertension, benign 401.1 ; Anxiety state, unspecified 300.00 ; Insomnia 780.52 and Hyperlipidemia 272.4 [place] [id number] [place] [address] 92992- 7016 Mar, [facility] [id number] [place] [address] 21208- 9185 Feb, [facility] [id number] [place] [address] 94071- 9778 Feb, [facility] [id number] [place] [address] 89458- 3661 Feb, [facility] [id number] [place] [address] 49084- 7496 Feb, [facility] [id number] [place] [address] 14311- 8702 Feb, [facility] [id number] [place] [address] 04812- 0251 Jan, Depressive disorder, not elsewhere classified 311 and Dyssomnia 780.56 [facility] [id number] [place] [address] 91834- 0846 Jan, Diabetes with neurological manifestations, type II or unspecified type, not stated as uncontrolled 250.60 ; Other chronic pain 338.29 ; Essential hypertension, benign 401.1 ; Anxiety state, unspecified 300.00 ; Insomnia 780.52 and Hyperlipidemia 272.4 [facility] [id number] [address] Jan, [facility] [id number] [address] Jan, [facility] [id number] [place] [address] 27978- 9273 Jan, [facility] [id number] [place] [address] 13445- 9156 Jan, [facility] [id number] [place] [address] 76094- 8858 Jan, [facility] [id number] [place] [address] 71910- 8826 Jan, [facility] [id number] [place] [address] 54186- 4505 December, [facility] [id number] [address] December, [facility] [id number] [place] [address] December, [facility] [address] [address] December, [facility] [address], [place] [address] December, Anxiety state, unspecified 300.00 ; Other chronic pain 338.29 ; Diabetes with neurological manifestations, type II or unspecified type , not stated as uncontrolled 250.60 ; Essential hypertension, benign 401.1 ; Compression fracture of thoracic spine, non-traumatic 733.13 ; Wrist fracture, left 814.00 and Fall at home E888.9 [facility] [address], [place] [address] December, [facility] [id number] [place] [address] December, [facility] [place] [facility] [address] [id number] [place] [address] Nov, [facility] [place] [facility] [address] [id number] [place] [address] Nov, [facility] [place] [facility] [address] [id number] [place] [address] Nov, [facility] [place] [facility] [address] [id number] [place] [address] Nov, [facility] [place] [facility] [address] [id number] [place] [address] Oct, [facility] [place] [facility] [address] [id number] [place] [address] Oct, [facility] [place] [facility] [address] [facility] [id number] [place] [address] Oct, [facility] [place] [facility] [address] [facility] [id number] [place] [address] Oct, [facility] [place] [facility] [address] [id number] [place] [address] Oct, [facility] [place] [facility] [address] [facility] [id number] [place] [address] Oct, [facility] [place] [facility] [address] [id number] [place] [address] Oct, [facility] [place] [facility] [address] [facility] [id number] [place] [address] Oct, [facility] [place] [facility] [address] [id number] [place] [address] Sep, [facility] [place] [facility] [address] [facility] [id number] [place] [address] Sep, [facility] [place] [facility] [address] [facility] [id number] [place] [address] Sep, [facility] [id number] [address] Sep, [facility] [address] [address] Aug, [facility] [id number], [place] [address] Aug, [facility] [address] [address] Aug, [facility] [id number] [address] Aug, [facility] [id number] [place] [address] Aug, [facility] [address], [place] [address] Aug, [facility] [address] [address] Aug, [facility] [id number], [place] [address] Aug, IMMUNIZATIONS No Known Immunizations SOCIAL HISTORY Never Assessed REASON FOR VISIT Pain Med Refills PLAN OF CARE VITAL SIGNS MEDICATIONS Unknown [...]
--- OUTSIDE RECORDS SUMMARY | 2018-01-20 21:56 | XMS REPORT | Continuity of Care Document ---
Author Author Via [facility] [employer]. Organization [facility]. Address Unknown Phone Unavailable Allergies Active Description Code Type Severity Reaction Onset Reported/Identified Relationship to Patient Clinical Status Yes Aspirin 1076 Unknown N/A 1942 Yes Codeine Sulfate 7128 Unknown N/A 1942 Yes Dilaudid 8599 Unknown hallucinations 08/12/1959 Yes Latex Exam Gloves 77044 Unknown N/A 08/12/1959 Yes Tape Adherent 63132 Unknown N/A 08/12/1959 Yes Aspirin X287 Drug Allergy Unknown STOMACH BURNING 04/30/2014 Yes PAIN PILL PAIN PILL Drug Allergy Unknown N/A 04/30/2014 Yes aspirin Drug Allergy N/A N/A 08/16/2014 Yes Halcion Drug Allergy N/A N/A 08/16/2014 Yes TAPE TAPE Mild RASH 11/23/2016 Yes aspirin [id number] Drug Allergy Unknown N/A 11/23/2016 Yes hydromorphone [id number] Drug Allergy Unknown N/A 11/23/2016 Yes triazolam [id number] Drug Allergy Unknown N/A 11/23/2016 Yes famotidine [id number] Drug Allergy Severe HAIR LOSS 01/04/2017 Medications There is no data. 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 12/23/2012 S 723.0 SPINAL STENOSIS IN CERVICAL REGION 12/23/2012 S 723.1 CERVICALGIA 12/23/2012 S 723.4 BRACHIAL NEURITIS OR RADICULITIS NOS 04/30/2014 Crescencio Knox A 458.9 04/30/2014 Crescencio Knox A 780.2 08/16/2014 WINKLER 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, NUVIA R 401.1 HYPERTENSION, BENIGN ESSENTIAL 08/16/2014 CATHI 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JOANNUVIA R 780.79 OTHER MALAISE AND FATIGUE 08/16/2014 MADL 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, LANIE L 401.1 HYPERTENSION, BENIGN ESSENTIAL 08/16/2014 MADL 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, LANIE L 780.79 OTHER MALAISE AND FATIGUE 08/16/2014 MADL 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ERICHLANIE L 401.1 HYPERTENSION, BENIGN ESSENTIAL 08/16/2014 MADL 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, LANIE L 780.79 OTHER MALAISE AND FATIGUE 08/16/2014 VIRAMONTES DO, CARY K 401.1 HYPERTENSION, BENIGN ESSENTIAL 08/16/2014 VIRAMONTES DO, CARY K 780.79 OTHER MALAISE AND FATIGUE 08/18/2014 MADL 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, LANIE L 250.60 DIABETES WITH NEUROLOGICAL MANIFESTATIONS TYPE II OR UNSPECIFIED TYPE NOT STATED UNCONTROLLED 08/18/2014 MADL 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, LANIE L 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 08/18/2014 MADL 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, LANIE L 338.29 OTHER CHRONIC PAIN 08/18/2014 MADL 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, LANIE L 729.1 MYALGIA AND MYOSITIS UNSPECIFIED 08/18/2014 MADL 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, LANIE L 250.60 DIABETES WITH NEUROLOGICAL MANIFESTATIONS TYPE II OR UNSPECIFIED TYPE NOT STATED UNCONTROLLED 08/18/2014 MADL 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, LANIE L 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 08/18/2014 MADL 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, LANIE L 338.29 OTHER CHRONIC PAIN 08/18/2014 MADL 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, LANIE L 729.1 MYALGIA AND MYOSITIS UNSPECIFIED 08/18/2014 VIRAMONTES DO, CARY K 250.60 DIABETES WITH NEUROLOGICAL MANIFESTATIONS TYPE II OR UNSPECIFIED TYPE NOT STATED UNCONTROLLED 08/18/2014 VIRAMONTES DO, CARY K 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 08/18/2014 VIRAMONTES DO, CARY K 338.29 OTHER CHRONIC PAIN 08/18/2014 VIRAMONTES DO, CARY K 729.1 MYALGIA AND MYOSITIS UNSPECIFIED 08/25/2014 LANDON BARRIOS DO, Ot 250.00 DIAB CRISS WO COMPL, TYPE II OR UNSPEC TY 08/25/2014 LANDON BARRIOS DO, Ot 272.4 HYPERLIPIDEMIA NEC/NOS 08/25/2014 LANDON BARRIOS DO Ot 401.9 HYPERTENSION NOS 08/25/2014 LANDON BARRIOS DO Ot 564.00 UNSPEC CONSTIPATION 08/25/2014 LANDON BARRIOS DO Ot 571.8 CHRONIC LIVER DIS NEC 08/25/2014 LANDON BARRIOS DO Ot 574.00 CHOLELITH W AC CHOLECYST 08/25/2014 LANDON BARRIOS DO Ot 599.0 URIN TRACT INFECTION NOS 08/25/2014 LANDON BARRIOS DO Ot V58.67 LONG-TERM (CURRENT) USE OF INSULIN 09/16/2014 LANIE BRIONES APRN 300.00 ANXIETY UNSPEC 09/16/2014 CARY VIRAMONTES DO 300.00 ANXIETY UNSPEC 10/08/2014 CARY VIRAMONTES DO 716.90 ARTHRITIS/ ARTHROPATHY, UNSPECIFIED 10/08/2014 CARY VIRAMONTES DO 719.41 PAIN IN JOINT INVOLVING SHOULDER REGION 11/10/2014 CHARLETTE CHAPPELL APRN Ot 373.11 HORDEOLUM EXTERNUM 11/10/2014 CHARLETTE CHAPPELL APRN Ot 379.93 REDNESS/DISCHARGE OF EYE 12/08/2014 JEANNE [...] STUMBLI 12/08/2014 JEANNE DANG MD Ot V06.1 [id number], COMBINED [ 12/08/2014 JEANNE DANG MD Ot V15.88 HISTORY OF FALL 12/08/2014 JEANNE DANG MD Ot V58.67 LONG-TERM (CURRENT) USE OF INSULIN 12/08/2014 JEANNE DANG MD Ot V58.69 OTH MED,LT,CURRENT USE 01/10/2015 NADINE DO AKHIL Aniket Ot 723.0 02/02/2015 NADINE ESTRELLA AKHIL Aniket Ot 723.0 02/14/2015 AKHIL MCCOY DO Ot 723.0 02/14/2015 SELENA JEFFERSON MD Ot 338.4 CHRONIC PAIN SYNDROME 02/14/2015 SELENA JEFFERSON MD Ot 722.52 LUMB/LUMBOSAC DISC DEGEN 02/14/2015 SELENA JEFFERSON MD Ot 729.1 MYALGIA AND MYOSITIS NOS 02/14/2015 SELENA JEFFERSON MD Ot V58.69 OTH MED,LT,CURRENT USE 04/06/2015 AKHIL MCCOY DO Ot 723.0 04/06/2015 LANDON MISHRA DO Ot 250.61 DIAB W NEURO MANIFEST, TYPE I [JUVENILE 04/06/2015 LANDON MISHRA DO Ot 536.3 GASTROPARESIS 04/06/2015 LANDON MISHRA DO Ot 787.01 NAUSEA WITH VOMITING 07/18/2015 NADINE ESTRELLA AKHIL Aniket Ot 723.0 07/19/2015 CHARLETTE CHAPPELL APRN Ot F17.210 NICOTINE DEPENDENCE, CIGARETTES, UNCOMPL 07/19/2015 CHARLETTE CHAPPELL 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 Ot L21.9 SEBORRHEIC DERMATITIS, UNSPECIFIED 07/19/2015 NADINE DO KAHIL Aniket Ot 723.0 07/19/2015 NADINE DO AKHIL Aniket Ot 723.0 07/19/2015 AKHIL MCCOY DO Ot 723.0 11/02/2015 AKHIL MCCOY DO Ot 723.0 11/02/2015 AKHIL MCCOY DO Ot 723.0 11/18/2015 AKHIL MCCOY DO Ot 723.0 11/18/2015 SELENA JEFFERSON MD Ot M51.16 INTERVERTEBRAL DISC DISORDERS W RADICULO 11/18/2015 SELENA JEFFERSON MD Ot Z79.899 OTHER MANAGER TRANSFUSION (CURRENT) DRUG THERAPY 06/08/2016 AKHIL MCCOY DO Ot 723.0 CERVICAL SPINAL STENOSIS 06/12/2016 AKHIL MCCOY DO Ot M48.06 SPINAL STENOSIS, [...] MCCOY DO Ot M54.9 DORSALGIA, UNSPECIFIED 06/29/2016 AKHIL MCCOY DO Ot M80.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 [...] PROCEDURE AND TREATMENT NOT CARRIED OUT 12/19/2016 MCPHERSON DOGENARO D Ot R13.10 DYSPHAGIA, UNSPECIFIED 12/19/2016 GENARO MCPHERSON DO D Ot R63.4 ABNORMAL WEIGHT LOSS 12/19/2016 GENARO MCPHERSON DO D Ot Z53.8 PROCEDURE AND TREATMENT NOT CARRIED OUT 12/19/2016 GENARO MCPHERSON DO D Ot E11.9 TYPE 2 DIABETES MELLITUS WITHOUT COMPLIC 12/19/2016 MCPHERSON DO GENARO D Ot I10 ESSENTIAL (PRIMARY) HYPERTENSION 12/19/2016 MCPHERSON DO GENARO D Ot K21.9 GASTRO-ESOPHAGEAL REFLUX DISEASE WITHOUT 12/19/2016 MCPHERSON DO, GENARO D Ot K29.70 GASTRITIS, UNSPECIFIED, WITHOUT BLEEDING 12/19/2016 GENARO MCPHERSON DO D Ot K44.9 DIAPHRAGMATIC HERNIA WITHOUT OBSTRUCTION 12/19/2016 MCPHERSON DODEMITT D Ot K63.5 POLYP OF COLON 12/19/2016 MCPHERSON DODEMITT D Ot M25.511 PAIN IN RIGHT SHOULDER 12/19/2016 MCPHERSON DO GENARO D Ot M25.512 PAIN IN LEFT SHOULDER 12/19/2016 MCPHERSON DO, GENARO D Ot Z79.899 OTHER MANAGER TRANSFUSION (CURRENT) DRUG THERAPY 12/20/2016 GENARO MCPHERSON DO Ot E11.9 TYPE 2 DIABETES MELLITUS WITHOUT COMPLIC 12/20/2016 GENARO MCPHERSON DO D Ot I10 ESSENTIAL (PRIMARY) HYPERTENSION 12/20/2016 GENARO MCPHERSON DO D Ot K21.9 GASTRO-ESOPHAGEAL REFLUX DISEASE WITHOUT 12/20/2016 CMPHERSON DODEMITT D Ot K29.70 GASTRITIS, UNSPECIFIED, WITHOUT BLEEDING 12/20/2016 GENARO MCPHERSON DO D Ot K44.9 DIAPHRAGMATIC HERNIA WITHOUT OBSTRUCTION 12/20/2016 MCPHERSON DODEMITT D Ot K63.5 POLYP OF COLON 12/20/2016 MCPHERSON DODEMITT D Ot M25.511 PAIN IN RIGHT SHOULDER 12/20/2016 MCPHERSON DO GENARO D Ot M25.512 PAIN IN LEFT SHOULDER 12/20/2016 MCPHERSON DO GENARO D Ot Z79.899 OTHER MANAGER TRANSFUSION (CURRENT) DRUG THERAPY 03/20/2017 GENARO MCPHERSON DO D Ot R13.10 DYSPHAGIA, UNSPECIFIED 03/20/2017 GENARO MCPHERSON DO D Ot R63.4 ABNORMAL WEIGHT LOSS 03/20/2017 GENARO MCPHERSON DO Ot Z53.8 PROCEDURE AND TREATMENT NOT CARRIED OUT 03/27/2017 LANIE BRIONES DESK INTERVIEWER Ot R53.1 WEAKNESS 04/04/2017 NADINE ESTRELLA AKHIL Aniket Ot 723.0 CERVICAL SPINAL STENOSIS 04/04/2017 NADINE ESTRELLA AKHIL Aniket Ot M48.06 SPINAL STENOSIS, LUMBAR REGION 04/04/2017 NADINE DO AKHIL Aniket Ot M54.9 DORSALGIA, UNSPECIFIED 04/04/2017 NADINE DO AKHIL Aniket Ot M80.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 W CURRENT PATH FRACTURE 07/26/2017 CHARLETTE CHAPPELL 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 Ot E11.9 TYPE 2 DIABETES MELLITUS WITHOUT COMPLIC 07/26/2017 CHARLETTE CHAPPELL APRN Ot G89.29 OTHER CHRONIC PAIN 07/26/2017 CHARLETTE CHAPPELL APRN Ot R52 PAIN, UNSPECIFIED 07/26/2017 CHARLETTE CHAPPELL APRN Ot Z79.4 SKILLED NURSING (CURRENT) USE OF INSULIN 07/26/2017 CHARLETTE CHAPPELL APRN Ot Z82.49 FAMILY HX OF ISCHEM HEART DIS AND OTH DI 07/26/2017 CHARLETTE CHAPPELL APRN Ot Z87.19 PERSONAL HISTORY OF OTHER DISEASES OF TH 07/26/2017 CHARLETTE CHAPPELL APRN Ot Z87.59 PERSONAL HISTORY OF COMP OF PREG, CHLDBR 07/26/2017 NADINE ESTRELLA AKHIL Aniket Ot 723.0 CERVICAL SPINAL STENOSIS 07/26/2017 NADINE DO AKHIL Aniket Ot M48.06 SPINAL STENOSIS, LUMBAR REGION 07/26/2017 NADINE ESTRELLA AKHIL Aniket Ot M54.9 DORSALGIA, UNSPECIFIED 07/26/2017 NADINE DO AKHIL Aniket Ot M80.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 W CURRENT PATH FRACTURE 11/22/2017 NADINE ESTRELLA AKHIL Aniket Ot 723.0 CERVICAL SPINAL STENOSIS 11/22/2017 NADINE ESTRELLA AKHIL Aniket Ot M48.06 SPINAL STENOSIS, LUMBAR REGION 11/22/2017 NADINE DO, AKHIL Aniket Ot M54.9 DORSALGIA, UNSPECIFIED 11/22/2017 NADINE DO AKHIL Aniket Ot M80.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 W CURRENT PATH FRACTURE 11/22/2017 NIKHIL MENDOSA Ot M43.9 DEFORMING DORSOPATHY, UNSPECIFIED 11/22/2017 SWEET PA, NIKHIL R Ot M47.816 SPONDYLOSIS W/O MYELOPATHY OR RADICULOPA 11/22/2017 SWEET PA, NIKHIL R Ot M48.061 SPINAL STENOSIS, LUMBAR REGION WITHOUT N 11/22/2017 SWEET PA, NIKHIL R Ot M51.26 OTHER INTERVERTEBRAL DISC DISPLACEMENT, 11/22/2017 SWEET PA, NIKHIL R Ot Z87.81 PERSONAL HISTORY OF (HEALED) TRAUMATIC F 11/22/2017 SWEET PA, NIKHIL R Ot Z87.828 PERSONAL HISTORY OF OTH (HEALED) PHYSICA 11/22/2017 AKHIL MCCOY DO Ot 723.0 CERVICAL SPINAL STENOSIS 11/22/2017 NADINE DO AKHIL Aniket Ot M48.06 SPINAL STENOSIS, LUMBAR REGION 11/22/2017 NADINE ESTRELLA AKHIL Aniket Ot M54.9 DORSALGIA, UNSPECIFIED 11/22/2017 NADINE ESTRELLA AKHIL Marcial Ot M80.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 W CURRENT PATH FRACTURE 11/22/2017 SWEET PA, NIKHIL R Ot M43.9 DEFORMING DORSOPATHY, UNSPECIFIED 11/22/2017 SWEET PA, NIKHIL R Ot M47.816 SPONDYLOSIS W/O MYELOPATHY OR RADICULOPA 11/22/2017 SWEET PA, NIKHIL R Ot M48.061 SPINAL STENOSIS, LUMBAR REGION WITHOUT N 11/22/2017 SWEET PA, NIKHIL R Ot M51.26 OTHER INTERVERTEBRAL DISC DISPLACEMENT, 11/22/2017 SWEET PA, NIKHIL R Ot Z87.81 PERSONAL HISTORY OF (HEALED) TRAUMATIC F 11/22/2017 SWEET PA, NIKHIL R Ot Z87.828 PERSONAL HISTORY OF OTH (HEALED) PHYSICA 11/22/2017 NADINE ESTRELLA AKHIL Marcial Ot 723.0 CERVICAL SPINAL STENOSIS 11/22/2017 NADINE ESTRELLA AKHIL Marcial Ot M48.06 SPINAL STENOSIS, LUMBAR REGION 11/22/2017 NADINE ESTRELLA AKHIL Aniket Ot M54.9 DORSALGIA, UNSPECIFIED 11/22/2017 NADINE ESTRELLA AKHIL Marcial Ot M80.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 W CURRENT PATH FRACTURE 11/22/2017 SWEET PA, NIKHIL R Ot M43.9 DEFORMING DORSOPATHY, UNSPECIFIED 11/22/2017 SWEET PA, NIKHIL R Ot M47.816 SPONDYLOSIS W/O MYELOPATHY OR RADICULOPA 11/22/2017 NIKHIL MENDOSA Ot M48.061 SPINAL STENOSIS, LUMBAR REGION WITHOUT N 11/22/2017 NIKHIL MENDOSA Ot M51.26 OTHER INTERVERTEBRAL DISC DISPLACEMENT, 11/22/2017 NIKHIL MENDOSA Ot Z87.81 PERSONAL HISTORY OF (HEALED) TRAUMATIC F 11/22/2017 NIKHIL MENDOSA Ot Z87.828 PERSONAL HISTORY OF OTH (HEALED) PHYSICA 11/22/2017 KENA HUFFMAN DO Ot B19.20 UNSPECIFIED VIRAL HEPATITIS C WITHOUT HE 11/22/2017 KENA HUFFMAN DO Ot E11.9 TYPE 2 DIABETES MELLITUS WITHOUT COMPLIC 11/22/2017 KENA HUFFMAN DO Ot F41.9 ANXIETY DISORDER, UNSPECIFIED 11/22/2017 KENA HUFFMAN DO Ot I10 ESSENTIAL (PRIMARY) HYPERTENSION 11/22/2017 KENA HUFFMAN DO Ot R41.82 ALTERED MENTAL STATUS, UNSPECIFIED 11/22/2017 KENA HUFFMAN DO Ot Z79.4 SKILLED NURSING (CURRENT) USE OF INSULIN 11/22/2017 KENA HUFFMAN DO Ot Z82.49 FAMILY HX OF ISCHEM HEART DIS AND OTH DI 11/22/2017 KENA HUFFMAN DO Ot Z86.010 PERSONAL HISTORY OF COLONIC POLYPS 11/22/2017 KENA HUFFMAN DO Ot Z86.73 PRSNL HX OF TIA (TIA), AND CEREB INFRC W 11/22/2017 KENA HUFFMAN DO Ot Z87.19 PERSONAL HISTORY OF OTHER DISEASES OF TH 11/22/2017 KENA HUFFMAN DO Ot Z87.440 PERSONAL HISTORY OF URINARY (TRACT) INFE 11/22/2017 KENA HUFFMAN DO Ot Z87.59 PERSONAL HISTORY OF COMP OF PREG, CHLDBR 11/22/2017 KENA HUFFMAN DO Ot Z88.6 ALLERGY STATUS TO ANALGESIC AGENT STATUS 11/22/2017 KENA HUFFMAN DO Ot Z88.8 ALLERGY STATUS TO OTH DRUG/MEDS/BIOL SUB 11/22/2017 KENA HUFFMAN DO Ot Z91.14 PATIENT'S OTHER NONCOMPLIANCE WITH MEDIC 11/22/2017 KENA HUFFMAN DO Ot Z98.1 ARTHRODESIS STATUS 11/22/2017 AKHIL MCCOY DO Ot 723.0 CERVICAL SPINAL STENOSIS 11/22/2017 AKHIL MCCOY DO Ot M48.06 SPINAL STENOSIS, LUMBAR REGION 11/22/2017 AKHIL MCCOY DO Ot M54.9 DORSALGIA, UNSPECIFIED 11/22/2017 AKHIL MCCOY DO Ot M80.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 W CURRENT PATH FRACTURE 11/22/2017 NIKHIL MENDOSA Ot M43.9 DEFORMING DORSOPATHY, UNSPECIFIED 11/22/2017 NIKHIL MENDOSA Ot M47.816 SPONDYLOSIS W/O MYELOPATHY OR RADICULOPA 11/22/2017 NIKHIL MENDOSA Ot M48.061 SPINAL STENOSIS, LUMBAR REGION WITHOUT N 11/22/2017 NIKHIL MENDOSA Ot M51.26 OTHER INTERVERTEBRAL DISC DISPLACEMENT, 11/22/2017 NIKHIL MENDOSA Ot Z87.81 PERSONAL HISTORY OF (HEALED) TRAUMATIC F 11/22/2017 NIKHIL MENDOSA Ot Z87.828 PERSONAL HISTORY OF OTH (HEALED) PHYSICA 11/25/2017 KENA HUFFMAN DO Ot B19.20 UNSPECIFIED VIRAL HEPATITIS C WITHOUT HE 11/25/2017 KENA HUFFMAN DO Ot E11.9 TYPE 2 DIABETES MELLITUS WITHOUT COMPLIC 11/25/2017 KENA HUFFMAN DO Ot F41.9 ANXIETY DISORDER, UNSPECIFIED 11/25/2017 KENA HUFFMAN DO Ot I10 ESSENTIAL (PRIMARY) HYPERTENSION 11/25/2017 KENA HUFFMAN DO Ot R41.82 ALTERED MENTAL STATUS, UNSPECIFIED 11/25/2017 KENA HUFFMAN DO Ot Z79.4 MANAGER TRANSFUSION (CURRENT) USE OF INSULIN 11/25/2017 KENA HUFFMAN DO Ot Z82.49 FAMILY HX OF ISCHEM HEART DIS AND OTH DI 11/25/2017 KENA HUFFMAN DO Ot Z86.010 PERSONAL HISTORY OF COLONIC POLYPS 11/25/2017 KENA HUFFMAN DO Ot Z86.73 PRSNL HX OF TIA (TIA), AND CEREB INFRC W 11/25/2017 KENA HUFFMAN DO Ot Z87.19 PERSONAL HISTORY OF OTHER DISEASES OF TH 11/25/2017 KENA HUFFMAN DO Ot Z87.440 PERSONAL HISTORY OF URINARY (TRACT) INFE 11/25/2017 KENA HUFFMAN DO Suresh Ot Z87.59 PERSONAL HISTORY OF COMP OF PREG, CHLDBR 11/25/2017 ARMIDA DOKENA Ot Z88.6 ALLERGY STATUS TO ANALGESIC AGENT STATUS 11/25/2017 ARMIDA ESTRELLADOUGLASA Suresh Ot Z88.8 ALLERGY STATUS TO OTH DRUG/MEDS/BIOL SUB 11/25/2017 ARMIDA KENA Ot Z91.14 PATIENT'S OTHER NONCOMPLIANCE WITH MEDIC 11/25/2017 KENA HUFFMAN DO Ot Z98.1 ARTHRODESIS STATUS 12/04/2017 NIKHIL MENDOSA Ot M43.9 DEFORMING DORSOPATHY, UNSPECIFIED 12/04/2017 NIKHIL MENDOSA Ot M47.816 SPONDYLOSIS W/O MYELOPATHY OR RADICULOPA 12/04/2017 NIKHIL MENDOSA Ot M48.061 SPINAL STENOSIS, LUMBAR REGION WITHOUT N 12/04/2017 NIKHIL MENDOSA Ot M51.26 OTHER INTERVERTEBRAL DISC DISPLACEMENT, 12/04/2017 NIKHIL MENDOSA Ot Z87.81 PERSONAL HISTORY OF (HEALED) TRAUMATIC F 12/04/2017 NIKHLI MENDOSA Ot Z87.828 PERSONAL HISTORY OF OTH (HEALED) PHYSICA 01/08/2018 GENARO MCPHERSON DO Ot Z01.818 ENCOUNTER FOR OTHER PREPROCEDURAL EXAMIN 01/08/2018 GENARO MCPHERSON DO Ot Z12.11 ENCOUNTER FOR SCREENING FOR MALIGNANT NE Procedures Code Description [place] [address] ROUTINE VENIPUNCTURE 08/18/2014 88114 TSH 08/18/2014 74295 AMERITOX 08/18/2014 52955 A1C (IN-HOUSE) 08/18/2014 28229 MICRO ALBUMIN-IN HOUSE 08/18/2014 46525 CBC 08/18/2014 38029 CMP 08/18/2014 [id number] GFR CALC (RESULT ONLY) 08/18/2014 67358 MICROALBUMIN 08/18/2014 51.23 LAPAROSCOPIC CHOLECYSTECTOMY 08/24/2014 87.53 INTRAOPER CHOLANGIOGRAM 08/24/2014 Results Test Result Range Comp. Metabolic Panel (14) - 08/14/16 16:57 Glucose, Serum 531 mg/dL 65-99 BUN 18 mg/dL 8-27 Creatinine, Serum 0.79 mg/dL 0.57-1.00 eGFR If NonAfricn Am 74 mL/min/1.73 >59 eGFR If Africn Am 86 mL/min/1.73 >59 BUN/Creatinine Ratio 23 11-26 Sodium, Serum 133 mmol/L 134-144 Potassium, Serum 4.5 mmol/L 3.5-5.2 Chloride, Serum 91 mmol/L 96-106 Carbon Dioxide, Total 24 mmol/L 18-29 Calcium, Serum 9.5 mg/dL 8.7-10.3 Protein, Total, Serum 7.2 g/dL 6.0-8.5 Albumin, Serum 4.4 g/dL 3.5-4.8 Globulin, Total 2.8 g/dL 1.5-4.5 A/G Ratio 1.6 1.1-2.5 Bilirubin, Total 0.5 mg/dL 0.0-1.2 Alkaline Phosphatase, S 154 IU/L 39-117 AST (SGOT) 21 IU/L 0-40 ALT (SGPT) 13 IU/L 0-32 Hepatitis Panel (4) - 09/11/16 17:40 HBsAg Screen Negative Negative Hep A Ab, IgM Negative Negative Hep B Core Ab, IgM Negative Negative Hep C Virus Ab <0.1 s/co ratio 0.0-0.9 Capillary blood glucose measurement by glucometer (mass/volume) - 12/19/16 14: 45 Capillary blood glucose measurement by glucometer (mass/volume) 72 mg/dL 70-110 Capillary blood glucose measurement by glucometer (mass/volume) - 12/19/16 16: 03 Capillary blood glucose measurement by glucometer (mass/volume) 101 mg/dL 70-110 [facility] - 09/10/17 14:54 GLUCOSE 238 mg/dL 65-99 UREA NITROGEN (BUN) 24 mg/dL 7-25 CREATININE 0.77 mg/dL 0.60-0.93 eGFR NON-AFR. TURK[place] 76 mL/min/1.73m2 > OR=60 eGFR 88 mL/min/1.73m2 > OR=60 BUN/CREATININE RATIO NOT APPLICABLE (calc) 6-22 SODIUM 139 mmol/L 135-146 POTASSIUM 4.3 mmol/L 3.5-5.3 CHLORIDE 102 mmol/L 98-110 CARBON DIOXIDE 26 mmol/L 20-31 CALCIUM 9.6 mg/dL 8.6-10.4 PROTEIN, TOTAL 7.6 g/dL 6.1-8.1 ALBUMIN 4.4 g/dL 3.6-5.1 GLOBULIN 3.2 g/dL (calc) 1.9-3.7 ALBUMIN/GLOBULIN RATIO 1.4 (calc) 1.0-2.5 BILIRUBIN, TOTAL 0.7 mg/dL 0.2-1.2 ALKALINE PHOSPHATASE 113 U/L 33-130 AST 24 U/L 10-35 ALT 17 U/L 6-29 Complete blood count (CBC) with automated white blood cell (WBC) differential - 11/22/17 00:27 Blood leukocytes automated count (number/volume) 3.7 10*3/uL 4.3-11.0 Blood erythrocytes automated count (number/volume) 3.31 10*6/uL 4.35-5.85 Venous blood hemoglobin measurement (mass/volume) 11.3 g/dL 11.5-16.0 Blood hematocrit (volume fraction) 33 % 35-52 Automated erythrocyte mean corpuscular volume 99 [foz_us] 80-99 Automated erythrocyte mean corpuscular hemoglobin (mass per erythrocyte) 34 pg 25-34 Automated erythrocyte mean corpuscular hemoglobin concentration measurement ( mass/volume) 34 g/dL 32-36 Automated erythrocyte distribution width ratio 13.9 % 10.0-14.5 Automated blood platelet count (count/volume) 143 10*3/uL 130-400 Automated blood platelet mean volume measurement 10.2 [foz_us] 7.4-10.4 Automated blood neutrophils/100 leukocytes 51 % 42-75 Automated blood lymphocytes/100 leukocytes 40 % 12-44 Blood monocytes/100 leukocytes 6 % 0-12 Automated blood eosinophils/100 leukocytes 2 % 0-10 Automated blood basophils/100 leukocytes 1 % 0-10 Blood neutrophils automated count (number/volume) 1.9 10*3 1.8-7.8 Blood lymphocytes automated count (number/volume) 1.5 10*3 1.0-4.0 Blood monocytes automated count (number/volume) 0.2 10*3 0.0-1.0 Automated eosinophil count 0.1 10*3/uL 0.0-0.3 Automated blood basophil count (count/volume) 0.0 10*3/uL 0.0-0.1 PT panel in platelet poor plasma by coagulation assay - 11/22/17 00:27 Prothrombin time (PT) in platelet poor plasma by coagulation assay 12.6 s 12.2-14.7 INR in platelet poor plasma or blood by coagulation assay 0.9 0.8-1.4 Activated partial thromboplastin time (aPTT) in platelet poor plasma bycoagulation assay - 11/22/17 00:27 Activated partial thromboplastin time (aPTT) in platelet poor plasma bycoagulation assay 32 s 24-35 Comprehensive metabolic panel - 11/22/17 00:27 Serum or plasma sodium measurement (moles/volume) 141 mmol/L 135-145 Serum or plasma potassium measurement (moles/volume) 3.8 mmol/L 3.6-5.0 Serum or plasma chloride measurement (moles/volume) 105 mmol/L 98-107 Carbon dioxide 25 mmol/L 21-32 Serum or plasma anion gap determination (moles/volume) 11 mmol/L 5-14 Serum or plasma urea nitrogen measurement (mass/volume) 25 mg/dL 7-18 Serum or plasma creatinine measurement (mass/volume) 1.00 mg/dL 0.60-1.30 Serum or plasma urea nitrogen/creatinine mass ratio 25 NRG Serum or plasma creatinine measurement with calculation of estimated glomerular filtration rate 54 NRG Serum or plasma glucose measurement (mass/volume) 185 mg/dL 70-105 Serum or plasma calcium measurement (mass/volume) 9.2 mg/dL 8.5-10.1 Serum or plasma total bilirubin measurement (mass/volume) 0.3 mg/dL 0.1-1.0 Serum or plasma alkaline phosphatase measurement (enzymatic activity/volume) 80 U/L 40-136 Serum or plasma aspartate aminotransferase measurement (enzymatic activity/ volume) 25 U/L 5-34 Serum or plasma alanine aminotransferase measurement (enzymatic activity/volume ) 15 U/L 0-55 Serum or plasma protein measurement (mass/volume) 6.2 g/dL 6.4-8.2 Serum or plasma albumin measurement (mass/volume) 3.5 g/dL 3.2-4.5 Magnesium - 11/22/17 00:27 Magnesium 2.3 mg/dL 1.8-2.4 Lipase - 11/22/17 00:27 Lipase 47 U/L 8-78 Serum or plasma thyrotropin measurement by detection limit <=0.05 miu/l (units/ volume) - 11/22/17 00:27 Serum or plasma thyrotropin measurement by detection limit <=0.05 miu/l (units/ volume) 0.47 u[iU]/mL 0.35-4.94 Serum or plasma salicylates measurement (mass/volume) - 11/22/17 00:27 Serum or plasma salicylates measurement (mass/volume) < mg/dL 5.0-20.0 Serum or plasma acetaminophen measurement (mass/volume) - 11/22/17 00:27 Serum or plasma acetaminophen measurement (mass/volume) < ug/mL 10-30 Serum or plasma ethanol measurement (mass/volume) - 11/22/17 00:27 Serum or plasma ethanol measurement (mass/volume) < mg/dL <10 Complete urinalysis with reflex to culture - 11/22/17 00:50 Urine color determination Y NRG Urine clarity determination CLEAR NRG Urine pH measurement by test strip 5 5-9 Specific gravity of urine by test strip 1.010 1.016- 1.022 Urine protein assay by test strip, semi-quantitative NEGATIVE NEGATIVE Urine glucose detection by automated test strip NEGATIVE NEGATIVE Erythrocytes detection in urine sediment by light microscopy NEGATIVE NEGATIVE Urine ketones detection by automated test strip NEGATIVE NEGATIVE Urine nitrite detection by test strip NEGATIVE NEGATIVE Urine total bilirubin detection by test strip NEGATIVE NEGATIVE Urine urobilinogen measurement by automated test strip (mass/volume) NORMAL NORMAL Urine leukocyte esterase detection by dipstick 1+ NEGATIVE Automated urine sediment erythrocyte count by microscopy (number/high power field) NONE NRG Automated urine sediment leukocyte count by microscopy (number/high power field ) RARE NRG Bacteria detection in urine sediment by light microscopy NEGATIVE NRG Squamous epithelial cells detection in urine sediment by light microscopy 0-2 NRG Crystals detection in urine sediment by light microscopy NONE NRG Casts detection in urine sediment by light microscopy PRESENT NRG Mucus detection in urine sediment by light microscopy NEGATIVE NRG Complete urinalysis with reflex to culture NO NRG Hyaline casts detection in urine sediment by light microscopy RARE NRG Urine drug screening test - 11/22/17 00:50 Urine phencyclidine detection by screening method NEGATIVE NEGATIVE Urine benzodiazepines detection by screening method POSITIVE NEGATIVE Urine cocaine detection NEGATIVE NEGATIVE Urine amphetamines detection by screening method NEGATIVE NEGATIVE Urine methamphetamine detection by screening method NEGATIVE NEGATIVE Urine cannabinoids detection by screening method NEGATIVE NEGATIVE Urine opiates detection by screening method POSITIVE NEGATIVE Urine barbiturates detection NEGATIVE NEGATIVE Screening urine tricyclic antidepressants detection NEGATIVE NEGATIVE Urine methadone detection by screening method NEGATIVE NEGATIVE Urine oxycodone detection NEGATIVE NEGATIVE Urine propoxyphene detection NEGATIVE NEGATIVE Capillary blood glucose measurement by glucometer (mass/volume) - 11/22/17 00: 57 Capillary blood glucose measurement by glucometer (mass/volume) 152 mg/dL 70-110 Capillary blood glucose measurement by glucometer (mass/volume) - 11/22/17 02: 14 Capillary blood glucose measurement by glucometer (mass/volume) 140 mg/dL 70-110 Capillary blood glucose measurement by glucometer (mass/volume) - 11/22/17 03: 16 Capillary blood glucose measurement by glucometer (mass/volume) 108 mg/dL 70-110 Capillary blood glucose measurement by glucometer (mass/volume) - 11/22/17 04: 14 Capillary blood glucose measurement by glucometer (mass/volume) 94 mg/dL 70-110 Capillary blood glucose measurement by glucometer (mass/volume) - 11/22/17 05: 16 Capillary blood glucose measurement by glucometer (mass/volume) 78 mg/dL 70-110 Encounters ACCT No. Visit Date/Time Discharge Status Pt. Type Provider Facility Loc./Unit Complaint [id number] 04/30/2014 12:09:00 04/30/2014 15:24:00 DIS Outpatient Crescencio Knox Via [facility]. COL.RAD [id number] 10/07/2014 13:58:00 Document Registration [id number] 09/24/2014 12:47:00 Document Registration [id number] 09/24/2014 12:47:00 Document Registration [id number] 01/14/2018 13:30:00 01/14/2018 23:59:59 CLS Preadmit GENARO MCPHERSON DO Via [facility] [address] ENDO SCREENING [id number] 01/07/2018 06:06:00 01/07/2018 16:00:00 DIS Outpatient GENARO MCPHERSON DO Via [facility] [address] PREOP COLONOSCOPY [id number] 12/27/2017 10:38:00 12/27/2017 23:59:59 CLS Preadmit JOSE MANUEL JACKSON MD Via [facility] [address] CARD SYSTOLIC MURMUR [id number] 11/22/2017 00:28:00 11/22/2017 06:15:00 DIS Emergency KENA HUFFMAN DO Via [facility] [address] ER AMS [id number] 11/11/2017 13:26:00 11/11/2017 23:59:59 CLS Outpatient NIKHIL MENDOSA Via [facility] [address] RAD BACK PAIN [id number] 07/26/2017 14:22:00 07/26/2017 15:04:00 DIS Emergency CHARLETTE CHAPPELL 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 Via [facility] [address] ER NEEDS PAIN/ALL MEDS REFILLED [id number] 02/07/2017 14:15:00 03/27/2017 11:49:00 DIS Outpatient LANIE BRIONES L DESK INTERVIEWER Via [facility] [address] REHAB WEAKNESS AND GAIT INSTABILITY [id number] 03/06/2017 12:00:00 03/06/2017 23:59:59 CLS Preadmit MADLANIE Curiel L DESK INTERVIEWER Via [facility] [address] CARD SYSTOLIC MURMUR [id number] 12/19/2016 12:55:00 12/19/2016 16:48:00 DIS Outpatient GENARO MCPHERSON DO Via [facility] [address] ENDO SCREENING [id number] 12/18/2016 08:02:00 12/18/2016 09:00:00 DIS Outpatient GENARO MCPHERSON DO Via [facility] [address] ENDO WEIGHT LOSS, DYSPHAGIA [id number] 12/13/2016 14:00:00 12/13/2016 14:00:00 CAN Preadmit GENARO MCPHERSON DO Via [facility] [address] PREOP COLONOSCOPY,EGD [id number] 11/23/2016 05:38:00 11/23/2016 13:52:00 DIS Outpatient GENARO MCPHERSON DO Via [facility] [address] PREOP SCREENING [id number] 06/22/2016 11:34:00 06/22/2016 23:59:59 CLS Preadmit MADLANIE Curiel L DESK INTERVIEWER [facility] [address] REHAB STRENGTHENING AND MOBILITY [id number] 06/08/2016 11:13:00 06/08/2016 23:59:59 CLS Outpatient AKHIL MCCOY DO [facility] [address] RAD BACK PAIN [id number] 11/18/2015 09:03:00 11/18/2015 10:37:00 DIS Outpatient SELENA JEFFERSON MD Via [facility] [address] CARD DISC DISORDER WITH LUMBAR RADICULOPATHY [id number] 07/19/2015 14:16:00 07/19/2015 14:47:00 DIS Emergency CHARLETTE CHAPPELL APRN [facility] [address] ER SCALP ITCHING/PAIN HAIR LOSS [id number] 04/06/2015 12:42:00 04/06/2015 17:43:00 DIS Emergency LANDON MISHRA DO [facility] [address] ER NAUSEA/VOMITING ABD PAIN [id number] 02/14/2015 13:07:00 02/14/2015 13:57:00 DIS Outpatient SELENA JEFFERSON MD Via [facility] [address] CARD DDD LUMBAR [id number] 01/06/2015 10:18:00 01/06/2015 23:59:59 CLS Outpatient AKHIL MCCOY DO [facility] [address] RAD NECK PAIN [id number] 12/06/2014 13:24:00 12/08/2014 14:30:00 DIS Inpatient JEANNE DANG MD Via [facility] [address] SURGICAL FALL; CLOSED HEAD INJURY; HAND FX; DEBILITY [id number] 11/10/2014 17:49:00 11/10/2014 18:17:00 DIS Emergency CHARLETTE CHAPPELL APRN Via [facility] [address] ER LEFT EYE IRRITATION [id number] 08/24/2014 05:42:00 08/25/2014 16:05:00 DIS Inpatient LANDON BARRIOS DO [facility] [address] SURGICAL ACUTE CHOLECYSTITIS,CHOLELITHIASIS,N/V [id number] 01/27/2018 08:30:00 PEN Preadmit AKHIL MCCOY DO STEN[facility]IS [id number] 12/15/2012 17:12:00 Document Registration [id number] 09/23/2012 16:43:00 Document Registration [id number] 08/15/2016 13:05:00 Document Registration [id number] 08/15/2016 10:05:00 Document Registration [id number] 09/12/2016 14:09:00 Document Registration [id number] 01/02/2018 10:40:00 01/02/2018 23:59:59 CLS [facility] [id number] 09/10/2017 13:30:00 Document Registration [id number] 04/06/2015 12:43:37 ACT Document Registration [id number] 11/05/2014 13:36:00 11/05/2014 23:59:59 CLS Outpatient CARY VIRAMONTES DO [id number] 09/16/2014 15:41:00 09/16/2014 23:59:59 CLS Outpatient LANIE BRIONES APRN [id number] 08/18/2014 08:53:00 08/18/2014 23:59:59 CLS Outpatient LANIE BRIONES APRN [id number] 08/16/2014 15:22:00 08/16/2014 23:59:59 CLS Outpatient NUVIA WINKLER APRN
[2018-01-20] MEDS ORDERED: TETANUS,DIPTH,PERTUSS P/F (BOOSTRIX) 0.5 ML VIAL IM STA (21:59)
--- NOTE | 2018-01-20 22:56 | ED Trauma-Multisystem ---
General Chief Complaint: Trauma-Non Activation Stated Complaint: FACIAL INJ AFTER FALL Nursing Triage Note: FALL History of Present Illness Date Seen by Provider: Jan 20, 2018 Time Seen by Provider: 21:45 Initial Comments 77-year-old female reports tripping on her back porch and falling into her grill. She hit the right side of her cheek and scraped her right knee. She denies any loss of consciousness and is not on blood thinners. She has recurrent falls related to sciatica in her left lower extremity. She reports falling last week onto her couch. She does not use a walker or cane. She is reporting pain about her right eye with no visual changes. She's had previous spine surgery and has retained hardware. She denies any midline cervical pain, but some mild left trapezius pain. She denies any radicular or paresthesia symptoms in either upper extremity. She is ambulatory with minimal discomfort in her right knee, secondary to the abrasion. She denies any seizure activity, or nausea and vomiting since the fall. She is an insulin-dependent diabetic she took her Levemir insulin at approximately 4: 00 pm today. She routinely takes it midafternoon. Location Injury Occurred: HOME Occurred: Just Prior to Arrival Severity: Mild Pain/Injury Location: Face, Head, Neck Method of Injury: Fall Loss of Consciousness: No Loss of Consciousness Associated Symptoms (Fall): Denies Symptoms Allergies and Home Medications Allergies Coded Allergies: famotidine (Verified Allergy, Severe, HAIR LOSS, 01/04/17) NOTIFIED ON 01/02/17 TO MEDICAL RECORDS aspirin (Unverified Allergy, Unknown, 11/23/16) hydromorphone (Unverified Allergy, Unknown, 11/23/16) triazolam (Unverified Allergy, Unknown, 11/23/16) Uncoded Allergies: TAPE (Allergy, Mild, RASH, 11/23/16) Home Medications Hydrocodone/Acetaminophen 1 Each Tablet, 1 EACH PO Q6H PRN for PAIN-SEVERE Prescribed by: CHARLETTE CHAPPELL on 01/17/18 5717 Insulin Aspart 100 Unit/1 Ml Susp, 13 UNIT SQ TIDWM, (Reported) Insulin Detemir 100 Unit/1 Ml Insuln.pen, 40 UNIT SQ HS, (Reported) Pantoprazole Sodium 40 Mg Tablet.dr, 40 MG PO DAILY Prescribed by: GENARO MCPHERSON on 01/14/18 1401 Prednisone 20 Mg Tab, 40 MG PO DAILY Prescribed by: KYLE IVEY on 01/19/18 0899 Patient Home Medication List Home Medication List Reviewed: Yes Review of Systems Constitutional: no symptoms reported, see HPI Eyes: See HPI, Inflammation, Pain (right eye), Other (marked ecchymosis. Orbital, right eye) Skin: see HPI, other (superficial abrasion to the right knee) All Other Systems Reviewed Negative Unless Noted: Yes Past Ojdcnmc-Mkwdwx-Xywyjy Hx Past Med/Social Hx: Reviewed Nursing Past Med/Soc Hx Patient Social History Alcohol Use: Denies Use Recreational Drug Use: No Smoking Status: Never a Smoker 2nd Hand Smoke Exposure: Yes Recent Foreign Travel: No Contact w/Someone Who Travel: No Recent Infectious Disease Expo: No Recent Hopitalizations: No Immunizations Up To Date Tetanus Booster (TDap): Unknown PED Vaccines UTD: No Date of Pneumonia Vaccine: Jun 12, 2014 Date of Influenza Vaccine: May 21, 2016 Seasonal Allergies Seasonal Allergies: No Past Medical History Surgeries: Yes (KNEE, SHOULDERS BILAT, CSPINE SURGERY ) Section, Gallbladder, Orthopedic Respiratory: No Cardiac: Yes Heart Murmur, Hypertension Neurological: Yes (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) Stroke Reproductive Disorders: No Sexually Transmitted Disease: No HIV/AIDS: No Genitourinary: Yes UTI-Chronic Gastrointestinal: Yes (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; HX OF HEPATITIS A AND C-- NO TREATMENT; JOSE) Liver Disease/Jaundice, Chronic Constipation, Diverticulosis, Pancreatitis, Chronic Diarrhea, Gall Bladder Disease Musculoskeletal: Yes (hx broken pelvis and hips from horse accident, no surgery ) Arthritis, Chronic Back Pain, Fractures Endocrine: Yes (LONG HISTORY OF NON-COMPLIANCE; ) Diabetes, Insulin dep HEENT: Yes Loss of Vision: Bilateral Hearing Impairment: Hard of Hearing Cancer: No Psychosocial: Yes Sleep Difficulties, Anxiety Integumentary: No Blood Disorders: No Adverse Reaction/Blood Tranf: No (HAS HAD BLOOD WITH NO REACTION) Family Medical History Arthritis G8 SISTER Cardiovascular disease 19 MOTHER Diabetes mellitus 19 MOTHER G8 BROTHER Hypertension 19 MOTHER G8 BROTHER G8 BROTHER Myocardial infarction 19 MOTHER G8 BROTHER No Family History of: AIDS Abdominal aortic aneurysm Gordon's disease Alcoholism Alzheimer's disease Aphasia Asthma Cancer of mouth Cataracts Colon cancer Completed stroke Congenital disease Congenital heart disease Coronary thrombosis Cystic fibrosis Deafness or hearing loss Dementia Drug abuse Dysphasia Fibrocystic disease of breast Gastroenteritis Glaucoma Headache disorder Hypercholesterolemia Infertility Kidney disease Neoplasm Not obtainable due to adoption Osteoporosis Parkinson's disease Prostate cancer Psychosocial problem Respiratory disorder Seizure disorder Severe allergy Thyroid disease Tuberculosis Visual disorder Physical Exam Vital Signs Vital Signs - First Documented 01/20/18 21:45 Temp 97.8 Pulse 90 Resp 18 B/P (MAP) 143/74 (97) Pulse Ox 94 O2 Delivery Room Air Temperature (Fahrenheit): 97.8 General Appearance: No Apparent Distress, WD/WN Head: Ecchymosis (periorbital right eye), Swelling (right eye), Tenderness ( left trapezius) Eyes: Right Eye Other (ecchymosis and swelling); Bilateral Eye PERRL, Bilateral Eye EOMI Ears, Nose, Throat: Hearing Grossly Normal, No Evidence of ENT Injury, No Dental Injury Neck: Full Range of Motion, Normal Inspection, Non Tender, Supple, Tender Lateral (left); No Tender Midline Cardiovascular: Regular Rate, Rhythm, No Murmur, Normal Peripheral Pulses, Systolic Murmur (III/) Respiratory: Chest Non Tender, Lungs Clear, Normal Breath Sounds Gastrointestinal: Normal Bowel Sounds, No Organomegaly, No Pulsatile Mass, Non Tender, Soft Back: Normal Inspection, No CVA Tenderness, Other Extremity: Normal Capillary Refill, Normal Inspection, Normal Range of Motion, No Pedal Edema Neurologic/Psychiatric: Alert, Oriented x3, No Motor/Sensory Deficits, Normal Mood/Affect, adult literacy instructor II-XII Norm as Tested Skin: Normal Color, Warm/Dry [place] Coma Score Best Eye Response (Ervin): (4) Open Spontaneously Best Verbal Response ([place]): (5) Oriented Best Motor Response ([place]): (6) Obeys Commands [place] Total: 15 Progress/Results/Core Measures Results/Orders Lab Results Laboratory Tests Test 01/20/18 23:41 Range/Units Glucometer 432 *H 70-110 MG/DL My Orders Orders - VIVIAN RUCKER Dipht,Pertuss(Acell),Tet Adult (Boostrix (01/20/18 21:59) Ct Head/Face/Cervical Wo (01/20/18 21:59) Accucheck Stat ONCE (01/20/18 23:36) Saline Lock/Iv-Start (01/20/18 23:36) Cbc With Automated Diff (01/20/18 23:36) Comprehensive Metabolic Panel (01/20/18 23:36) Protime With Inr (01/20/18 23:36) Partial Thromboplastin Time (01/20/18 23:36) Insulin (Regular) Human (Humulin R (Per (01/20/18 23:49) Vital Signs/I&O 01/20/18 21:45 Temp 97.8 Pulse 90 Resp 18 B/P (MAP) 143/74 (97) Pulse Ox 94 O2 Delivery Room Air Blood Pressure Mean: 97 Progress Progress Note : Time: 21:45 Progress Note Initial evaluation completed, recommended CT head, face and cervical spine. Tetanus booster. Abrasion to right knee cleaned with chlorhexidine and sterile saline, triple anabiotic ointment and sterile dressing applied. 2230 patient continues to have no neurological deficits, she is communicating with her son. She is ambulated to the bathroom with minimal assistance. Her gait is steady. Awaiting CT results. 2250 call from Stat Rad with CT results. 2 mm subdural hemorrhage on the left frontoparietal region. Reviewed studies with Dr. Cerna, agreed with this interpretation. Discussed results with the patient and her son offered option of inpatient observation and frequent neuro exams versus home management with family checking patient regularly, risks and benefits reviewed. They agreed with recommendation for observation status in the hospital. [address] Mitchell per phone, agreed to admit the patient on observation status. Diagnostic Imaging Diagonstic Imaging: CT Plain Films/CT/US/NM/MRI: facial bones, c-spine, head Comments Per stat rad, Dr. Gayle: Small amount of acute subdural hemorrhage on the left fronto-parietal region, measuring approximately 2 mm in thickness soft tissue swelling in the right frontal periorbital region. Straightening of the normal cervical lordosis and degenerative changes in the cervical spine with no acute abnormalities noted. Departure Impression Primary Impression: Fall on same level Qualified Codes: W18.30XA - Fall on same level, unspecified, initial encounter Additional Impressions: Contusion of face Qualified Codes: S00.83XA - Contusion of other part of head, initial encounter Abrasion, right knee, initial encounter Subdural hematoma, acute Disposition: ADMITTED INPATIENT Condition: Stable Admissions Decision to Admit Reason: Admit from ER (General) Decision to Admit/Date: Jan 20, 2018 Time/Decision to Admit Time: 23:15 Departure-Patient Inst. Referrals: [facility] (PCP) Primary Care Physician LANIE BRIONES (Family) Primary Care Physician Patient Instructions: Eye Contusion (DC), Preventing Falls in the Older Adult Add. Discharge Instructions: Ice to right thigh 20 minutes every 2 hours while awake. You may take Tylenol 650 mg and ibuprofen 600mg alternating every 4 hours for pain. Activity as tolerated. Follow-up with your primary care provider in 2-3 days if symptoms are not improving or worsen. Return to emergency department for changes in level of consciousness, increased neck pain, dizziness or recurrent falls, seizure activity, or new problems. All discharge instructions reviewed with patient and/or family. Voiced understanding. Copy Copies To 1: KIET MITCHELL AMY ARNP Jan 20, 2018 22:56
[2018-01-20] MEDS ORDERED: inSUlin (REGULAR) HUMAN 1 UNIT/0.01 ML (CHARGE PER UNIT) SC STA (23:49)
[2018-01-21] LABS: BASOPHILS % (AUTO) 0 % (0-10); EOSINOPHILS % (AUTO) 0 % (0-10); HEMATOCRIT 34 % (35-52); HEMOGLOBIN 11.6 G/DL (11.5-16.0); LYMPHOCYTES # (AUTO) 0.5 X 10^3 (1.0-4.0); LYMPHOCYTES % (AUTO) 13 % (12-44); MEAN CORPUSCULAR HEMOGLOBIN 34 PG (25-34); MEAN CORPUSCULAR HGB CONC 34 G/DL (32-36); MEAN CORPUSCULAR VOLUME 101 FL (80-99); MEAN PLATELET VOLUME 10.9 FL (7.4-10.4); MONOCYTES # (AUTO) 0.1 X 10^3 (0.0-1.0); MONOCYTES % (AUTO) 2 % (0-12); NEUTROPHILS # (AUTO) 3.4 X 10^3 (1.8-7.8); PLATELET COUNT 155 10^3/uL (130-400); RED BLOOD COUNT 3.38 10^6/uL (4.35-5.85); RED CELL DISTRIBUTION WIDTH 14.1 % (10.0-14.5); WHITE BLOOD COUNT 3.9 10^3/uL (4.3-11.0)
[2018-01-21 00:01] LABS: NEUTROPHILS % (AUTO) 85 % (42-75)
[2018-01-21 00:07] LABS: PROTHROMBIN TIME PATIENT 13.4 SEC (12.2-14.7)
[2018-01-21 00:19] LABS: ALBUMIN 4.1 GM/DL (3.2-4.5); BILIRUBIN,TOTAL 0.5 MG/DL (0.1-1.0); CALCIUM 9.7 MG/DL (8.5-10.1); CREATININE SERUM 1.13 MG/DL (0.60-1.30); POTASSIUM 4.6 MMOL/L (3.6-5.0); TOTAL PROTEIN 7.4 GM/DL (6.4-8.2)
[2018-01-21 00:25] VITALS: BP 160/84
[2018-01-21] MEDS ORDERED: NS IV 1000 ML 1,000 ML ONE (00:49)
[2018-01-21] MEDS ORDERED: HYDROcodone/APAP 5 MG/325 MG (LORTAB) TAB PO PRN (01:00)
[2018-01-21] MEDS ORDERED: NS IV 1000 ML 1,000 ML IV SCH (01:00)
--- OUTSIDE RECORDS SUMMARY | 2018-01-21 01:21 | XMS REPORT | Clinical Summary ---
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 Pulse - - Temperature - - Respiratory Rate - - Oxygen Saturation - - Inhaled Oxygen - - Concentration Weight 76.7 kg (169 lb) 06/28/2014 1:38 PM POLE SANDER OPERATOR Height 152.4 cm (5') 10/29/2013 1:20 PM CDT Body Mass Index 33.01 06/28/2014 1:38 PM POLE SANDER OPERATOR Plan of Treatment Health Maintenance Due Date Last Done Comments DTaP,Tdap,and Td Vaccines 1961 (1 - Tdap) Colon Cancer Screening 1992 Zoster Recombinant 1992 Vaccine (RZV,Shingrix) (1 of 2 - [facility] 2 Dose Standard) Pneumo-Adult (1 of 2 - 2007 PCV13) Influenza Vaccine (Season 04/12/2018 Ended) Results Not on filefrom Last 3 Months
--- OUTSIDE RECORDS SUMMARY | 2018-01-21 01:21 | XMS REPORT | Clinical Summary ---
Author Author [facility] Organization [facility] Address Unknown Phone Unavailable Care Team Providers Care Manager Group Home Name Role Phone Adolfo Ryan MD Unavailable Yvan Canas MD Unavailable Source Comments Some departments are not documenting in the electronic medical record. If you do not see the information that you expected, contact Release of Information in the Health Information Management department at [phone] for further assistance in locating additional records.[facility] Allergies Active Allergy Reactions Severity Noted Date [...]
--- OUTSIDE RECORDS SUMMARY | 2018-01-21 01:39 | XMS REPORT | Continuity of Care Document ---
Author Author [facility] [employer]. Organization [facility]. Address Unknown Phone Unavailable Allergies Active Description Code Type Severity Reaction Onset Reported/Identified Relationship to Patient Clinical Status Yes Aspirin 1076 Unknown N/A 1942 Yes Codeine Sulfate 7128 Unknown N/A 1942 Yes Dilaudid 8599 Unknown hallucinations 08/12/1959 Yes Latex Exam Gloves 17582 Unknown N/A 08/12/1959 Yes Tape Adherent 58215 Unknown N/A 08/12/1959 Yes Aspirin X287 Drug Allergy Unknown STOMACH BURNING 04/30/2014 Yes PAIN PILL PAIN PILL Drug Allergy Unknown N/A 04/30/2014 Yes aspirin Drug Allergy N/A N/A 08/16/2014 Yes Halcion Drug Allergy N/A N/A 08/16/2014 Yes TAPE TAPE Mild RASH 11/23/2016 Yes aspirin [id number] Drug Allergy Unknown N/A 11/23/2016 Yes hydromorphone [id number] Drug Allergy Unknown N/A 11/23/2016 Yes triazolam [id number] Drug Allergy Unknown N/A 11/23/2016 Yes famotidine [id number] Drug Allergy Severe HAIR LOSS 01/04/2017 Medications [...] 04/30/2014 Crescencio Knox A 780.2 08/16/2014 WINKLER FLIGHT ATTENDANT/INFLIGHT SUPERVISOR, NUVIA R 401.1 HYPERTENSION, BENIGN ESSENTIAL 08/16/2014 CATHI FLIGHT ATTENDANT/INFLIGHT SUPERVISORJOANNUVIA R 780.79 OTHER MALAISE AND FATIGUE 08/16/2014 MADL FLIGHT ATTENDANT/INFLIGHT SUPERVISOR, LANIE L 401.1 HYPERTENSION, BENIGN ESSENTIAL 08/16/2014 MADL FLIGHT ATTENDANT/INFLIGHT SUPERVISOR, LANIE L 780.79 OTHER MALAISE AND FATIGUE 08/16/2014 MADL FLIGHT ATTENDANT/INFLIGHT SUPERVISORERICHLANIE L 401.1 HYPERTENSION, BENIGN ESSENTIAL 08/16/2014 MADL FLIGHT ATTENDANT/INFLIGHT SUPERVISOR, LANIE L 780.79 OTHER MALAISE AND FATIGUE 08/16/2014 VIRAMONTES DO, CARY K 401.1 HYPERTENSION, BENIGN ESSENTIAL 08/16/2014 VIRAMONTES DO, CARY K 780.79 OTHER MALAISE AND FATIGUE 08/18/2014 MADL FLIGHT ATTENDANT/INFLIGHT SUPERVISOR, LANIE L 250.60 DIABETES WITH NEUROLOGICAL MANIFESTATIONS TYPE II OR UNSPECIFIED TYPE NOT STATED UNCONTROLLED 08/18/2014 MADL FLIGHT ATTENDANT/INFLIGHT SUPERVISOR, LANIE L 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 08/18/2014 MADL FLIGHT ATTENDANT/INFLIGHT SUPERVISOR, LANIE L 338.29 OTHER CHRONIC PAIN 08/18/2014 MADL FLIGHT ATTENDANT/INFLIGHT SUPERVISOR, LANIE L 729.1 MYALGIA AND MYOSITIS UNSPECIFIED 08/18/2014 MADL FLIGHT ATTENDANT/INFLIGHT SUPERVISOR, LANIE L 250.60 DIABETES WITH NEUROLOGICAL MANIFESTATIONS TYPE II OR UNSPECIFIED TYPE NOT STATED UNCONTROLLED 08/18/2014 MADL FLIGHT ATTENDANT/INFLIGHT SUPERVISOR, LANIE L 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 08/18/2014 MADL FLIGHT ATTENDANT/INFLIGHT SUPERVISOR, LANIE L 338.29 OTHER CHRONIC PAIN 08/18/2014 MADL FLIGHT ATTENDANT/INFLIGHT SUPERVISOR, LANIE L 729.1 MYALGIA AND MYOSITIS UNSPECIFIED 08/18/2014 VIRAMONTES DO, CARY K 250.60 DIABETES WITH NEUROLOGICAL MANIFESTATIONS TYPE II OR UNSPECIFIED TYPE NOT STATED UNCONTROLLED 08/18/2014 VIRAMONTES DO, CARY K 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 08/18/2014 VIRAMONTES DO, ACRY K 338.29 OTHER CHRONIC PAIN 08/18/2014 VIRAMONTES [...] Ot E849.0 ACCIDENT IN HOME 12/08/2014 JEANNE ADNG MD Ot E885.9 FALL FROM SLIPPING, TRIPPING, OR STUMBLI 12/08/2014 JEANNE DANG MD Ot V06.1 [id number], COMBINED [ 12/08/2014 JEANEN DANG MD Ot V15.88 HISTORY OF FALL 12/08/2014 JEANNE DANG MD Ot V58.67 LONG-TERM (CURRENT) USE OF INSULIN 12/08/2014 JEANNE DANG MD Ot V58.69 OTH MED,LT,CURRENT USE 01/10/2015 NDAINE DO AKHIL Aniket Ot 723.0 02/02/2015 NADINE [...] NICOTINE DEPENDENCE, CIGARETTES, UNCOMPL 07/19/2015 CHARLETTE CHAPPELL FLIGHT ATTENDANT/INFLIGHT SUPERVISOR Ot L21.9 SEBORRHEIC DERMATITIS, UNSPECIFIED 07/19/2015 NADINE DO AKHIL Aniket Ot 723.0 07/19/2015 NADINE DO AKHIL Aniket Ot 723.0 07/19/2015 AKHIL MCCOY DO Ot 723.0 11/02/2015 AKHIL MCCOY DO Ot 723.0 11/02/2015 AKHIL MCCOY DO Ot 723.0 11/18/2015 AKHIL MCCOY DO Ot 723.0 11/18/2015 SELENA JEFFERSON MD Ot M51.16 INTERVERTEBRAL DISC DISORDERS W RADICULO 11/18/2015 SELENA JEFFERSON MD Ot Z79.899 OTHER CONTINUOUS PICKLING LINE PICKLER HELPER (CURRENT) DRUG THERAPY 06/08/2016 AKHIL MCCOY DO [...] MCPHERSON DO, GENARO D Ot Z79.899 OTHER CONTINUOUS PICKLING LINE PICKLER HELPER (CURRENT) DRUG THERAPY 12/20/2016 GENARO MCPHERSON DO Ot E11.9 TYPE 2 DIABETES MELLITUS WITHOUT COMPLIC 12/20/2016 GENARO MCPHERSON DO D Ot I10 ESSENTIAL (PRIMARY) HYPERTENSION 12/20/2016 GENARO MCPHERSON DO D Ot K21.9 GASTRO-ESOPHAGEAL REFLUX DISEASE WITHOUT 12/20/2016 MCPHERSON DODEMITT D Ot K29.70 GASTRITIS, UNSPECIFIED, WITHOUT BLEEDING 12/20/2016 GENARO MCPHERSON DO D Ot K44.9 DIAPHRAGMATIC HERNIA WITHOUT OBSTRUCTION 12/20/2016 MCPHERSON DODEMITT D Ot K63.5 POLYP OF COLON 12/20/2016 MCPHERSON DODEMITT D Ot M25.511 PAIN IN RIGHT SHOULDER 12/20/2016 MCPHERSON DO GENARO D Ot M25.512 PAIN IN LEFT SHOULDER 12/20/2016 MCPHERSON DO GENARO D Ot Z79.899 OTHER CONTINUOUS PICKLING LINE PICKLER HELPER (CURRENT) DRUG THERAPY 03/20/2017 GENARO MCPHERSON DO D Ot R13.10 DYSPHAGIA, UNSPECIFIED 03/20/2017 GENARO MCPHERSON DO D Ot R63.4 ABNORMAL WEIGHT LOSS 03/20/2017 GENARO MCPHERSON DO Ot Z53.8 PROCEDURE AND TREATMENT NOT CARRIED OUT 03/27/2017 LANIE BRIONES SUPERINTENDENT OIL WELL SERVICES Ot R53.1 WEAKNESS 04/04/2017 NADINE ESTRELLA AKHIL Aniket Ot 723.0 CERVICAL SPINAL STENOSIS 04/04/2017 NADINE ESTRELLA AKHIL Aniket Ot M48.06 SPINAL STENOSIS, LUMBAR REGION 04/04/2017 NADINE DO AKHIL Aniket Ot M54.9 DORSALGIA, UNSPECIFIED 04/04/2017 NADINE DO AKHIL Aniket Ot M80.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 W CURRENT PATH FRACTURE 07/26/2017 CHARLETTE CHAPPELL FLIGHT ATTENDANT/INFLIGHT SUPERVISOR Ot E11.9 TYPE 2 DIABETES MELLITUS WITHOUT COMPLIC 07/26/2017 CHARLETTE CHAPPELL APRN Ot G89.29 OTHER CHRONIC PAIN 07/26/2017 CHARLETTE CHAPPELL APRN Ot R52 PAIN, UNSPECIFIED 07/26/2017 CHARLETTE CHAPPELL APRN Ot Z79.4 FDC (CURRENT) USE OF INSULIN 07/26/2017 CHARLETTE CHAPPELL [...] UNSPECIFIED 11/22/2017 KENA HUFFMAN DO Ot Z79.4 FDC (CURRENT) USE OF INSULIN 11/22/2017 KENA HUFFMAN [...] UNSPECIFIED 11/25/2017 KENA HUFFMAN DO Ot Z79.4 CONTINUOUS PICKLING LINE PICKLER HELPER (CURRENT) USE OF INSULIN 11/25/2017 KENA HUFFMAN [...] PERSONAL HISTORY OF (HEALED) TRAUMATIC F 12/04/2017 NIKHIL MENDOSA Ot Z87.828 PERSONAL HISTORY OF OTH (HEALED) PHYSICA 01/08/2018 GENARO MCPHERSON DO Ot Z01.818 ENCOUNTER FOR OTHER PREPROCEDURAL EXAMIN 01/08/2018 GENARO MCPHERSON DO Ot Z12.11 ENCOUNTER FOR SCREENING FOR MALIGNANT NE Procedures Code [place] [address] ROUTINE VENIPUNCTURE 08/18/2014 76403 TSH 08/18/2014 82214 AMERITOX 08/18/2014 85788 A1C (IN-HOUSE) 08/18/2014 37315 MICRO ALBUMIN-IN HOUSE 08/18/2014 42225 CBC 08/18/2014 85289 CMP 08/18/2014 2822371 GFR CALC (RESULT ONLY) 08/18/2014 06028 MICROALBUMIN 08/18/2014 51.23 LAPAROSCOPIC CHOLECYSTECTOMY 08/24/2014 87.53 [...] measurement by glucometer (mass/volume) 101 mg/dL 70-110 [facility] - 09/10/17 14:54 GLUCOSE 238 mg/dL 65-99 UREA NITROGEN (BUN) 24 mg/dL 7-25 CREATININE 0.77 mg/dL 0.60-0.93 eGFR NON-AFR. ARMENIAN 76 mL/min/1.73m2 > OR=60 eGFR 88 mL/min/1.73m2 [...] Status Pt. Type Provider Facility Loc./Unit Complaint [id number] 04/30/2014 12:09:00 04/30/2014 15:24:00 DIS Outpatient Crescencio Knox [facility]. COL.RAD [id number] 10/07/2014 13:58:00 Document Registration [id number] 09/24/2014 12:47:00 Document Registration [id number] 09/24/2014 12:47:00 Document Registration [id number] 01/14/2018 13:30:00 01/14/2018 23:59:59 CLS Preadmit GENARO MCPHERSON DO [facility] ENDO SCREENING [id number] 01/07/2018 06:06:00 01/07/2018 16:00:00 DIS Outpatient GENARO MCPHERSON DO [facility] PREOP COLONOSCOPY [id number] 12/27/2017 10:38:00 12/27/2017 23:59:59 CLS Preadmit JOSE MANUEL JACKSON MD [facility] CARD SYSTOLIC MURMUR [id number] 11/22/2017 00:28:00 11/22/2017 06:15:00 DIS Emergency KENA HUFFMAN DO [facility] ER AMS [id number] 11/11/2017 13:26:00 11/11/2017 23:59:59 CLS Outpatient NIKHIL MENDOSA [facility] RAD BACK PAIN [id number] 07/26/2017 14:22:00 07/26/2017 15:04:00 DIS Emergency CHARLETTE CHAPPELL FLIGHT ATTENDANT/INFLIGHT SUPERVISOR [facility] ER NEEDS PAIN/ALL MEDS REFILLED [id number] 02/07/2017 14:15:00 03/27/2017 11:49:00 DIS Outpatient LANIE BRIONES L SUPERINTENDENT OIL WELL SERVICES [facility] REHAB WEAKNESS AND GAIT INSTABILITY [id number] 03/06/2017 12:00:00 03/06/2017 23:59:59 CLS Preadmit MADLANIE Curiel L SUPERINTENDENT OIL WELL SERVICES [facility] CARD SYSTOLIC MURMUR [id number] 12/19/2016 12:55:00 12/19/2016 16:48:00 DIS Outpatient GENARO MCPHERSON DO [facility] ENDO SCREENING [id number] 12/18/2016 08:02:00 12/18/2016 09:00:00 DIS Outpatient GENARO MCPHERSON DO [facility] ENDO WEIGHT LOSS, DYSPHAGIA [id number] 12/13/2016 14:00:00 12/13/2016 14:00:00 CAN Preadmit GENARO MCPHERSON DO [facility] PREOP COLONOSCOPY,EGD [id number] 11/23/2016 05:38:00 11/23/2016 13:52:00 DIS Outpatient GENARO MCPHERSON DO [facility] PREOP SCREENING [id number] 06/22/2016 11:34:00 06/22/2016 23:59:59 CLS Preadmit MADLANIE Curiel L SUPERINTENDENT OIL WELL SERVICES [facility] REHAB STRENGTHENING AND MOBILITY [id number] 06/08/2016 11:13:00 06/08/2016 23:59:59 CLS Outpatient AKHIL MCCOY DO [facility] RAD BACK PAIN [id number] 11/18/2015 09:03:00 11/18/2015 10:37:00 DIS Outpatient SELENA JEFFERSON MD [facility] CARD DISC DISORDER WITH LUMBAR RADICULOPATHY [id number] 07/19/2015 14:16:00 07/19/2015 14:47:00 DIS Emergency CHARLETTE CHAPPELL APRN [facility] ER SCALP ITCHING/PAIN HAIR LOSS [id number] 04/06/2015 12:42:00 04/06/2015 17:43:00 DIS Emergency LANDON MISHRA DO [facility] ER NAUSEA/VOMITING ABD PAIN [id number] 02/14/2015 13:07:00 02/14/2015 13:57:00 DIS Outpatient SELENA JEFFERSON MD [facility] CARD DDD LUMBAR [id number] 01/06/2015 10:18:00 01/06/2015 23:59:59 CLS Outpatient AKHIL MCCOY DO [facility] RAD NECK PAIN [id number] 12/06/2014 13:24:00 12/08/2014 14:30:00 DIS Inpatient JEANNE DANG MD [facility] SURGICAL FALL; CLOSED HEAD INJURY; HAND FX; DEBILITY [id number] 11/10/2014 17:49:00 11/10/2014 18:17:00 DIS Emergency CHARLETTE CHAPPELL APRN [facility] ER LEFT EYE IRRITATION [id number] 08/24/2014 05:42:00 08/25/2014 16:05:00 DIS Inpatient LANDON BARRIOS DO [facility] SURGICAL ACUTE CHOLECYSTITIS,CHOLELITHIASIS,N/V [id number] 01/27/2018 08:30:00 PEN Preadmit AKHIL MCCOY DO STENOSIS [id number] 12/15/2012 17:12:00 Document Registration [id number] 09/23/2012 16:43:00 Document Registration [id number] 08/15/2016 13:05:00 Document Registration [id number] 08/15/2016 10:05:00 Document Registration [id number] 09/12/2016 14:09:00 Document Registration [id number] 01/02/2018 10:40:00 01/02/2018 23:59:59 CLS [facility] [id number] 09/10/2017 13:30:00 Document Registration [id number] 04/06/2015 12:43:37 ACT Document Registration [id number] 11/05/2014 13:36:00 11/05/2014 23:59:59 CLS Outpatient CARY VIRAMONTES DO [id number] 09/16/2014 15:41:00 09/16/2014 23:59:59 CLS Outpatient LANIE BRIONES APRN [id number] 08/18/2014 08:53:00 08/18/2014 23:59:59 CLS Outpatient LANIE BRIONES APRN [id number] 08/16/2014 15:22:00 08/16/2014 23:59:59 CLS Outpatient NUVIA WINKLER APRN
[2018-01-21 04:56] VITALS: BP 158/83
[2018-01-21] MEDS: CYCLOBENZAPRINE 10 MG (FLEXERIL) TAB PO SCH ×2 (05:37→15:32)
[2018-01-21] MEDS: inSUlin ASPART (NovoLOG) 1 UNIT/0.01 ML (CHARGE PER UNIT) SC SCH ×2 (05:37→12:11)
[2018-01-21 07:03] LABS: BASOPHILS % (AUTO) 0 % (0-10); EOSINOPHILS % (AUTO) 0 % (0-10); HEMATOCRIT 31 % (35-52); HEMOGLOBIN 10.8 G/DL (11.5-16.0); LYMPHOCYTES # (AUTO) 0.9 X 10^3 (1.0-4.0); LYMPHOCYTES % (AUTO) 19 % (12-44); MEAN CORPUSCULAR HEMOGLOBIN 36 PG (25-34); MEAN CORPUSCULAR HGB CONC 35 G/DL (32-36); MEAN CORPUSCULAR VOLUME 101 FL (80-99); MONOCYTES # (AUTO) 0.2 X 10^3 (0.0-1.0); MONOCYTES % (AUTO) 5 % (0-12); NEUTROPHILS # (AUTO) 3.7 X 10^3 (1.8-7.8); NEUTROPHILS % (AUTO) 76 % (42-75); PLATELET COUNT 154 10^3/uL (130-400); RED BLOOD COUNT 3.04 10^6/uL (4.35-5.85); WHITE BLOOD COUNT 4.8 10^3/uL (4.3-11.0)
[2018-01-21 07:46] LABS: ALANINE AMINOTRANSFERASE 21 U/L (0-55); ALBUMIN 3.8 GM/DL (3.2-4.5); ALKALINE PHOSPHATASE 76 U/L (40-136); BILIRUBIN,TOTAL 0.4 MG/DL (0.1-1.0); BUN/CREATININE RATIO 29; CALCIUM 9.1 MG/DL (8.5-10.1); CARBON DIOXIDE 23 MMOL/L (21-32); CHLORIDE 104 MMOL/L (98-107); CREATININE SERUM 0.87 MG/DL (0.60-1.30); GFR ESTIMATED > 60; GLUCOSE 277 MG/DL (70-105); POTASSIUM 4.1 MMOL/L (3.6-5.0); SODIUM 138 MMOL/L (135-145); TOTAL PROTEIN 6.8 GM/DL (6.4-8.2)
--- NOTE | 2018-01-21 08:52 | History & Physicial (CHS) ---
HPI History of Present Illness: Per ED: 77-year-old female reports tripping on her back porch and falling into her grill. She hit the right side of her cheek and scraped her right knee. She denies any loss of consciousness and is not on blood thinners. She has recurrent falls related to sciatica in her left lower extremity. She reports falling last week onto her couch. She does not use a walker or cane. She is reporting pain about her right eye with no visual changes. She's had previous spine surgery and has retained hardware. She denies any midline cervical pain, but some mild left trapezius pain. She denies any radicular or paresthesia symptoms in either upper extremity. She is ambulatory with minimal discomfort in her right knee, secondary to the abrasion. She denies any seizure activity, or nausea and vomiting since the fall. She is an insulin-dependent diabetic she took her Levemir insulin at approximately 4: 00 pm today. She routinely takes it midafternoon. Source: patient, RN/MD, RN notes reviewed, old records Exam Limitations: no limitations Date seen by provider: Jan 21, 2018 Time Seen by Provider: 14:00 Attending Physician Yanni Hurt DO [facility] Consult Date of Admission Jan 20, 2018 at 23:30 Home Medications Home Medications Reviewed patient Home Medication Reconciliation performed by pharmacy medication reconciliations central processing technician and/or nursing. Patients Allergies have been reviewed. Allergies Coded Allergies: famotidine (Verified Allergy, Severe, HAIR LOSS, 01/04/17) NOTIFIED ON 01/02/17 TO MEDICAL RECORDS aspirin (Unverified Allergy, Unknown, 11/23/16) hydromorphone (Unverified Allergy, Unknown, 11/23/16) triazolam (Unverified Allergy, Unknown, 11/23/16) Uncoded Allergies: TAPE (Allergy, Mild, RASH, 11/23/16) [id number]-[id number] Hx Patient Social History Living Status: lives independently Employed/Student: unemployed Alcohol Use: Denies Use Recreational Drug Use: No Smoking Status: Never a Smoker 2nd Hand Smoke Exposure: Yes Recent Foreign Travel: No Contact w/other who traveled: No Recent Hopitalizations: No Recent Infectious Disease Expo: No Physical Abuse Screen: No Sexual Abuse: No Immunizations Up To Date Tetanus Booster (TDap): Unknown Date of Pneumonia Vaccine: Jun 12, 2014 Date of Influenza Vaccine: May 21, 2016 Past Medical History Past Medical History 1. Multiple Falls 2. History of "syncopal episodes" pt. reports increase in episodes when increase in her narcotics 3. Diabetes Mellitus II- non-compliance with medications and diet (pt reports blood sugars were over 400) 4. Hypertension- with reported hypotensive episodes (pt. takes medication when her blood pressures are "over 110" 5. Previous CVA's seen on CT 6. History of previous back fracture with possible kyphoplasty at L2 (pt. didn't advise history of kyphoplasty) 7. Obesity 8. Chronic pain on chronic narcotics 9. Anxiety 10. Pancreatitis from common bile duct stone 11. Reported history of hepatitis C and hepatitis A 12. Heart murmur 13. JOSE 14. Chronic Constipation 15. Diverticulosis 16. Anxiety 17. GERD 18. Diabetic Retinopathy 19. Diabetic Neuropathy 20. Hard of Hearing 21. Insomina 22. Opiate Abuse 23. 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 24. Psoriasis 25. Mild Neurocognitive Disorder 26. Unintentional Opiate Overdose - October 2017 Past Surgical History 1. Cholecystectomy with common bile duct obstruction- ERCP in [place] 2. 3. Knee and Shoulder surgery Family Medical History Family History: Arthritis G8 SISTER Cardiovascular disease 19 MOTHER Diabetes mellitus 19 MOTHER G8 BROTHER Hypertension 19 MOTHER G8 BROTHER G8 BROTHER Myocardial infarction 19 MOTHER G8 BROTHER No Family History of: AIDS Abdominal aortic aneurysm Gordon's disease Alcoholism Alzheimer's disease Aphasia Asthma Cancer of mouth Cataracts Colon cancer Completed stroke Congenital disease Congenital heart disease Coronary thrombosis Cystic fibrosis Deafness or hearing loss Dementia Drug abuse Dysphasia Fibrocystic disease of breast Gastroenteritis Glaucoma Headache disorder Hypercholesterolemia Infertility Kidney disease Neoplasm Not obtainable due to adoption Osteoporosis Parkinson's disease Prostate cancer Psychosocial problem Respiratory disorder Seizure disorder Severe allergy Thyroid disease Tuberculosis Visual disorder Review of Systems ([facility]) Constitutional: see HPI EENTM: see HPI Respiratory: see HPI Cardiovascular: see HPI Gastrointestinal: no symptoms reported Genitourinary: no symptoms reported : No Musculoskeletal: see HPI, back pain Skin: see HPI Psychiatric/Neurological: No Symptoms Reported Physical Exam-([facility]) Physical Exam Vital Signs VS - Last 72 Hours, by Label 01/21/18 01/21/18 01/21/18 01/21/18 08:20 08:57 12:00 16:43 Temp 99.3 99.1 Pulse 76 80 Resp 20 20 B/P (MAP) 138/84 (102) 160/85 (110) Pulse Ox 96 98 O2 Delivery Room Air Room Air Room Air Capillary Refill : Less Than 3 Seconds General Appearance: WD/WN, no apparent distress Eyes: Right Eye Other (right eye with bruising and surrounding edema); Bilateral Eye EOMI HEENT: No scleral icterus (R), No scleral icterus (L), No pale conjunctivae (R) , No pale conjunctivae (L), No photophobia Neck: non-tender, full range of motion, supple, normal inspection Respiratory: chest non-tender, normal breath sounds, no respiratory distress, no accessory muscle use Cardiovascular: regular rate, rhythm, no gallop, no JVD, systolic murmur ( harsh III-/) Gastrointestinal: normal bowel sounds, non tender, soft, no organomegaly, no pulsatile mass Rectal: deferred Back: normal inspection, no CVA tenderness Extremities: normal range of motion, non-tender, normal inspection, no calf tenderness, normal capillary refill Neurologic/Psychiatric: classified advertising manager II-XII nml as tested, no motor/sensory deficits, alert, normal mood/affect, oriented x 3 Skin: normal color (other than noted bruising around right eye), warm/dry Assessment/Plan Assessment/Plan Admission Dx Fall from tripping, slipping on level height and striking object Small subdural hematoma Chronic Pain Opiate Addiction and Misuse of Prescription Opiates Mild Neurocognitive Disorder Anxiety Depression Heart Murmur Hep C Hep A JOSE Hx of previous stroke Admission Status: Observation Assessment & Plan Fall from tripping, slipping on level height and striking object Small subdural hematoma Chronic Pain Opiate Addiction and Misuse of Prescription Opiates Mild Neurocognitive Disorder Anxiety Depression Heart Murmur Hep C Hep A JOSE Hx of previous stroke When seen in the afternoon after admission patient reports that she is feeling much better and wants discharge. She states she was told that she needed a rescan of her brain. Discussed that given her normal neuro exam, the small size of her bleed, that I did not feel rescan prior to discharge was needed. Pt has been given only one dose of [place] during her stay, pain otherwise controlled by non-narcotic means and pt reports no significant pain at the time of exam. She reports she is to have back surgery on Zev. She then became quite tangential about the clinic "stopping her pain medicine because she was a drug addict" - clinic records show that pt was tapered off her narcotics due to violation of her controlled substances agreement. Endorsed that the clinic was trying to keep her safe, and the patient had not required opiates in the hospital for the majority of her pain control, and we would discharge her today as requested. Clinical Quality Measures DVT/VTE Risk/Contraindication: Risk Factor Score Per Nursin RFS Level Per Nursing on Admit: 2=Moderate Copy Copies To 1: [facility]/YANNI HO DO Jan 21, 2018 08:52
--- NOTE | 2018-01-21 08:52 | Discharge Summary ---
Diagnosis/Chief Complaint Date of Admission Jan 20, 2018 at 23:30 Date of Discharge 01/21/18 Admission Diagnosis Admission Diagnosis Fall from tripping, slipping on level height and striking object Small subdural hematoma Chronic Pain Opiate Addiction and Misuse of Prescription Opiates Mild Neurocognitive Disorder Anxiety Depression Heart Murmur Hep C Hep A JOSE Hx of previous stroke Discharge Diagnosis Fall from tripping, slipping on level height and striking object Small subdural hematoma Chronic Pain Opiate Addiction and Misuse of Prescription Opiates Mild Neurocognitive Disorder Anxiety Depression Heart Murmur Hep C Hep A JOSE Hx of previous stroke When seen in the afternoon after admission patient reports that she is feeling much better and wants discharge. She states she was told that she needed a rescan of her brain. Discussed that given her normal neuro exam, the small size of her bleed, that I did not feel rescan prior to discharge was needed. Pt has been given only one dose of Leslie during her stay, pain otherwise controlled by non-narcotic means and pt reports no significant pain at the time of exam. She reports she is to have back surgery on Saturday. She then became quite tangential about the clinic "stopping her pain medicine because she was a drug addict" - clinic records show that pt was tapered off her narcotics due to violation of her controlled substances agreement. Endorsed that the clinic was trying to keep her safe, and the patient had not required opiates in the hospital for the majority of her pain control, and we would discharge her today as requested. Chief Complaint/HPI Chief Complaint/HPI Per ED: 77-year-old female reports tripping on her back porch and falling into her grill. She hit the right side of her cheek and scraped her right knee. She denies any loss of consciousness and is not on blood thinners. She has recurrent falls related to sciatica in her left lower extremity. She reports falling last week onto her couch. She does not use a walker or cane. She is reporting pain about her right eye with no visual changes. She's had previous spine surgery and has retained hardware. She denies any midline cervical pain, but some mild left trapezius pain. She denies any radicular or paresthesia symptoms in either upper extremity. She is ambulatory with minimal discomfort in her right knee, secondary to the abrasion. She denies any seizure activity, or nausea and vomiting since the fall. She is an insulin-dependent diabetic she took her Levemir insulin at approximately 4: 00 pm today. She routinely takes it midafternoon. Discharge Summary-OBS Procedures None. Consultations Discharge Physical Examination Allergies: Coded Allergies: famotidine (Verified Allergy, Severe, HAIR LOSS, 01/04/17) NOTIFIED ON 01/02/17 TO MEDICAL RECORDS aspirin (Unverified Allergy, Unknown, 11/23/16) hydromorphone (Unverified Allergy, Unknown, 11/23/16) triazolam (Unverified Allergy, Unknown, 11/23/16) Uncoded Allergies: TAPE (Allergy, Mild, RASH, 11/23/16) Vitals & I&Os Vital Sign - Last 12Hours Date Time Temp Pulse Resp B/P (MAP) Pulse Ox O2 Delivery O2 Flow Rate FiO2 01/21/18 04:56 98.6 72 18 158/83 (108) 98 Room Air Hospital Course see Final Discharge Diagnoses Labs Laboratory Tests 01/20/18 23:41: Glucometer 432*H 01/20/18 23:45: White Blood Count 3.9L, Red Blood Count 3.38L, Hemoglobin 11.6, Hematocrit 34L, Mean Corpuscular Volume 101H, Mean Corpuscular Hemoglobin 34, Mean Corpuscular Hemoglobin Concent 34, Red Cell Distribution Width 14.1, Platelet Count 155, Mean Platelet Volume 10.9H, Neutrophils (%) (Auto) 85H, Lymphocytes (%) (Auto) 13, Monocytes (%) (Auto) 2, Eosinophils (%) (Auto) 0, Basophils (%) (Auto) 0, Neutrophils # (Auto) 3.4, Lymphocytes # (Auto) 0.5L, Monocytes # (Auto) 0.1, Eosinophils # (Auto) 0.0, Basophils # (Auto) 0.0, Prothrombin Time 13.4, INR Comment 1.0, Activated Partial Thromboplast Time 27, Sodium Level 139, Potassium Level 4.6, Chloride Level 101, Carbon Dioxide Level 23, Anion Gap 15H , Blood Urea Nitrogen 28H, Creatinine 1.13, Estimat Glomerular Filtration Rate 47, BUN/Creatinine Ratio 25, Glucose Level 457*H, Calcium Level 9.7, Total Bilirubin 0.5, Aspartate Amino Transf (AST/SGOT) 24, Alanine Aminotransferase ( ALT/SGPT) 23, Alkaline Phosphatase 84, Total Protein 7.4, Albumin 4.1 01/21/18 01:06: Glucometer 423*H 01/21/18 05:31: Glucometer 268H 01/21/18 05:42: White Blood Count 4.8, Red Blood Count 3.04L, Hemoglobin 10.8L, Hematocrit 31L, Mean Corpuscular Volume 101H, Mean Corpuscular Hemoglobin 36H, Mean Corpuscular Hemoglobin Concent 35, Red Cell Distribution Width 14.0, Platelet Count 154, Mean Platelet Volume 11.0H, Neutrophils (%) (Auto) 76H, Lymphocytes (%) (Auto) 19, Monocytes (%) (Auto) 5, Eosinophils (%) (Auto) 0, Basophils (%) (Auto) 0, Neutrophils # (Auto) 3.7, Lymphocytes # (Auto) 0.9L, Monocytes # (Auto) 0.2, Eosinophils # (Auto) 0.0, Basophils # (Auto) 0.0, Sodium Level 138, Potassium Level 4.1, Chloride Level 104, Carbon Dioxide Level 23, Anion Gap 11, Blood Urea Nitrogen 25H, Creatinine 0.87, Estimat Glomerular Filtration Rate > 60, BUN /Creatinine Ratio 29, Glucose Level 277H, Calcium Level 9.1, Total Bilirubin 0.4 , Aspartate Amino Transf (AST/SGOT) 22, Alanine Aminotransferase (ALT/SGPT) 21, Alkaline Phosphatase 76, Total Protein 6.8, Albumin 3.8 Discharge Condition at discharge stable Instructions to patient/family Please see electronic discharge instructions given to patient. Discharge Medications Reviewed and agree with Discharge Medication list on patient's Discharge Instruction sheet Clinical Quality Measures DVT/VTE Risk/Contraindication: Risk Factor Score Per Nursin RFS Level Per Nursing on Admit: 2=Moderate Copy Copies To 1: [facility]/KIET HO DO Jan 21, 2018 08:52
[2018-01-21 08:57] VITALS: BP 138/84
--- NOTE | 2018-01-21 08:58 | Diagnostic Imaging Report ---
PROCEDURE: CT head, face, and cervical spine without contrast. TECHNIQUE: Multiple contiguous axial images were obtained through the head, neck, and facial bones without the use of intravenous contrast. Sagittal and coronal reformations through the cervical spine and facial bones were also performed. INDICATION: Fall with trauma to the face. Facial swelling. Neck pain. Orbital pain. COMPARISON: 12/19/2016 FINDINGS: CT head: There is trace hyperdense asymmetric thickened appearance in the subdural region on the left overlying the anterior left temporal lobe and extending superolateral. Findings are felt to be on the basis of small subdural hematoma and measure approximately 2 mm in thickness (image 11, series 5). There is no significant underlying mass effect or midline shift. Ventricles and cortical sulci are otherwise diffusely prominent, compatible with age-related volume loss. There are confluent areas of abnormal, low attenuation in the periventricular white matter. This is consistent with chronic small vessel ischemic changes. There is no loss of chaves-white matter junction differentiation to suggest acute territorial infarct. The bony calvarium is intact. CT facial bones: There is no CT evidence of acute fracture or dislocation of the facial bones. Zygomatic arches are intact. Bilateral medial and lateral pterygoid plates are intact as well. There is no evidence of acute fracture or dislocation of the mandible. There is no fracture of the alveolar ridge of the maxilla. Multiple dental caries of patient's remaining mandibular teeth are noted. Evaluation of the paranasal sinuses demonstrates small air-fluid level within the left sphenoid sinus. Otherwise, paranasal sinuses are clear. There is no fracture of the paranasal sinuses. Bilateral nasal bones are intact. Bony nasal septum is intact as well. There is no fracture of the orbits. Globes are symmetric. There is mild asymmetric right-sided periorbital soft tissue swelling. No unexpected radiopaque foreign bodies or soft tissue emphysema is identified. CT cervical spine: Evaluation of the static alignment demonstrates straightening of normal lordotic curvature of the cervical spine. Findings may be related to positioning, spasm, as well as postsurgical changes. There are postsurgical changes of previous anterior fusion of the C3-C4 and C6-C7 vertebral bodies. Intervertebral disc spacer material is also noted at these levels and appear appropriately positioned. No unexpected radiopaque foreign bodies are seen. There is no significant anteroretrolisthesis. There is no evidence of jumped facets. Vertebral body heights are maintained. There is no evidence of acute fracture. No bony fragments are seen within the spinal canal. There are moderate multilevel degenerative changes consisting of intervertebral disc height loss with anterior and posterior disc osteophyte complex formations. Pre-and paravertebral soft tissue structures are unremarkable. There is calcified carotid atherosclerosis. Included portions of the lung apices are unremarkable. IMPRESSION: 1. Small subtle acute appearing subdural hematoma overlying the left temporal lobe. 2. Chronic small vessel ischemic changes in deep white matter. 3. Mild asymmetric periorbital soft tissue swelling on the right, but no CT evidence of acute fracture or dislocation of the facial bones. 4. No acute fracture or dislocation of the cervical spine. 5. Postsurgical changes of the cervical spine with moderate multilevel degenerative changes as described above. 6. Air-fluid level within the left sphenoid sinus. Correlation for underlying acute sinusitis is recommended. 7. Multiple dental caries of patient's remaining mandibular teeth. Dictated by: Dictated on workstation # [id number]
[2018-01-21] MEDS ORDERED: PREG50CA2 PO (09:44)
[2018-01-21] MEDS ORDERED: METF500T8 PO (09:44)
[2018-01-21] MEDS ORDERED: PANT40TA3 PO (09:44)
[2018-01-21] MEDS ORDERED: HYDR-3812 PO (09:44)
[2018-01-21] MEDS ORDERED: PRD20T PO (09:44)
[2018-01-21] MEDS ORDERED: INSU100V5 SC (09:44)
[2018-01-21] MEDS ORDERED: MULT-324 PO (09:45)
[2018-01-21] MEDS ORDERED: BISA5TAB49 PO (09:45)
[2018-01-21 12:00] VITALS: BP 160/85
--- NOTE | 2018-01-21 14:26 | Discharge Summary ---
Diagnosis/Chief Complaint Date of Admission Jan 20, 2018 at 23:30 Date of Discharge Admission Diagnosis Admission Diagnosis Discharge Diagnosis Discharge Summary-OBS Procedures None. Consultations Discharge Physical Examination Allergies: Coded Allergies: famotidine (Verified Allergy, Severe, HAIR LOSS, 01/04/17) NOTIFIED ON 01/02/17 TO MEDICAL RECORDS aspirin (Unverified Allergy, Unknown, 11/23/16) hydromorphone (Unverified Allergy, Unknown, 11/23/16) triazolam (Unverified Allergy, Unknown, 11/23/16) Uncoded Allergies: TAPE (Allergy, Mild, RASH, 11/23/16) Vitals & I&Os Vital Sign - Last 12Hours Date Time Temp Pulse Resp B/P (MAP) Pulse Ox O2 Delivery O2 Flow Rate FiO2 01/21/18 12:00 99.1 80 20 160/85 (110) 98 Room Air Hospital Course Labs Laboratory Tests 01/20/18 23:41: Glucometer 432*H 01/20/18 23:45: White Blood Count 3.9L, Red Blood Count 3.38L, Hemoglobin 11.6, Hematocrit 34L, Mean Corpuscular Volume 101H, Mean Corpuscular Hemoglobin 34, Mean Corpuscular Hemoglobin Concent 34, Red Cell Distribution Width 14.1, Platelet Count 155, Mean Platelet Volume 10.9H, Neutrophils (%) (Auto) 85H, Lymphocytes (%) (Auto) 13, Monocytes (%) (Auto) 2, Eosinophils (%) (Auto) 0, Basophils (%) (Auto) 0, Neutrophils # (Auto) 3.4, Lymphocytes # (Auto) 0.5L, Monocytes # (Auto) 0.1, Eosinophils # (Auto) 0.0, Basophils # (Auto) 0.0, Prothrombin Time 13.4, INR Comment 1.0, Activated Partial Thromboplast Time 27, Sodium Level 139, Potassium Level 4.6, Chloride Level 101, Carbon Dioxide Level 23, Anion Gap 15H , Blood Urea Nitrogen 28H, Creatinine 1.13, Estimat Glomerular Filtration Rate 47, BUN/Creatinine Ratio 25, Glucose Level 457*H, Calcium Level 9.7, Total Bilirubin 0.5, Aspartate Amino Transf (AST/SGOT) 24, Alanine Aminotransferase ( ALT/SGPT) 23, Alkaline Phosphatase 84, Total Protein 7.4, Albumin 4.1 01/21/18 01:06: Glucometer 423*H 01/21/18 05:31: Glucometer 268H 01/21/18 05:42: White Blood Count 4.8, Red Blood Count 3.04L, Hemoglobin 10.8L, Hematocrit 31L, Mean Corpuscular Volume 101H, Mean Corpuscular Hemoglobin 36H, Mean Corpuscular Hemoglobin Concent 35, Red Cell Distribution Width 14.0, Platelet Count 154, Mean Platelet Volume 11.0H, Neutrophils (%) (Auto) 76H, Lymphocytes (%) (Auto) 19, Monocytes (%) (Auto) 5, Eosinophils (%) (Auto) 0, Basophils (%) (Auto) 0, Neutrophils # (Auto) 3.7, Lymphocytes # (Auto) 0.9L, Monocytes # (Auto) 0.2, Eosinophils # (Auto) 0.0, Basophils # (Auto) 0.0, Sodium Level 138, Potassium Level 4.1, Chloride Level 104, Carbon Dioxide Level 23, Anion Gap 11, Blood Urea Nitrogen 25H, Creatinine 0.87, Estimat Glomerular Filtration Rate > 60, BUN /Creatinine Ratio 29, Glucose Level 277H, Calcium Level 9.1, Total Bilirubin 0.4 , Aspartate Amino Transf (AST/SGOT) 22, Alanine Aminotransferase (ALT/SGPT) 21, Alkaline Phosphatase 76, Total Protein 6.8, Albumin 3.8 01/21/18 11:12: Glucometer 205H Discharge Instructions to patient/family Please see electronic discharge instructions given to patient. Discharge Medications Reviewed and agree with Discharge Medication list on patient's Discharge Instruction sheet Clinical Quality Measures DVT/VTE Risk/Contraindication: Risk Factor Score Per Nursin RFS Level Per Nursing on Admit: 2=Moderate KIET MITCHELL DO Jan 21, 2018 14:26
[2018-01-21] MEDS ORDERED: BISACODYL 5 MG PO PRN (14:30)
[2018-01-21] MEDS ORDERED: BISACODYL 5 MG (DULCOLAX) TABLET PO PRN (14:45)
--- NOTE | 2018-01-21 14:45 | Discharge Instructions ---
Discharge [email or web address] Discharge Medications New, Converted or Re-Newed RX: Other (no new prescriptions) Continued Medications: Bisacodyl (Laxative) 5 Mg Tablet 5 MG PO BID PRN for CONSTIPATION-4TH LINE, TAB Insulin Aspart (Novolog) 100 Unit/1 Ml Susp 10 UNIT SQ AC, EACH Insulin Determir (Levemir) 1,000 Units/10 Ml Soln 40 UNITS SC 1600, EA Metformin HCl (Metformin HCl ER) 500 Mg Tab.er.24h 500 MG PO HS, TAB Multivitamin (One Daily) 1 Each Tablet 1 TAB PO DAILY, TAB Pantoprazole Sodium (Pantoprazole Sodium) 40 Mg Tablet.dr 40 MG PO DAILY, TAB Prednisone (Prednisone) 20 Mg Tab 40 MG PO for 5 Days, TAB 5 DAY THERAPY FILLED 01-19-18 TAKES 2 (20MG) TABLETS Pregabalin (Lyrica) 50 Mg Capsule 50 MG PO BID, CAP Discontinued Medications: Hydrocodone/Acetaminophen (Hydrocodone-Acetamin 5-325 mg) 1 Each Tablet 1 TAB PO Q6H PRN for PAIN-MODERATE, TAB Patient Instructions Patient Instructions -keep appt for tomorrow at noon: Echocardiogram to evaluate your heart murmur, scheduled at 12:00 -keep appt for January 24 at 11:40 am with Russ REYES -take medication as prescribed Goal/Follow Up Appt: Echocardiogram, 01/22/18 at 12:[address] REYES, 01/24/18 at 11:40 Return to The Hospital For: chest pain or pressure, shortness of breath out of usual for you and not relieved by rest, nausea or vomiting that makes you unable to keep down clear liquids or medications for more than 12 hours, temperature greater than 101 that does not go down with tylenol or ibuprofen, severe pain not relieved by normal measures Activity & Diet Discharge Diet: ADA Diet Activity as Tolerated: Yes Copy Copies To 1: [facility]/KIET HO DO Jan 21, 2018 14:45
[2018-01-21] MEDS ORDERED: INSULIN VIAL ASPART for PUMP 100 UNIT/ML VIAL SQ SCH (16:00)
[2018-01-21] MEDS ORDERED: inSUlin ASPART (NovoLOG) 1 UNIT/0.01 ML (CHARGE PER UNIT) SC SCH (16:00)
[2018-01-21] MEDS ORDERED: inSUlin DETERMIR 1 UNIT/0.01 ML (LEVEMIR) CHARGE PER UNIT SQ SCH (16:00)
[2018-01-21] MEDS ORDERED: inSUlin DETERMIR 1000 UNITS/10 ML VIAL (LEVEMIR) SQ SCH (16:00)
[2018-01-21] MEDS ORDERED: NON-FORMULARY MEDICATION 1 EA EA (Pregabalin (Lyrica) 50 MG) PO SCH (21:00)
[2018-01-21] MEDS ORDERED: metFORMIN XR 500 MG (GLUCOPHAGE XR) TAB PO SCH (21:00)
[2018-01-21] MEDS ORDERED: PREGABALIN 50 MG (LYRICA) CAP PO SCH (21:00)
[2018-01-22] MEDS ORDERED: MULTIVIT W/MINERALS TAB (THERAGRAN M) PO SCH (07:00)
[2018-01-22] MEDS ORDERED: PANTOPRAZOLE 40 MG (PROTONIX) TAB PO SCH (07:00)
[2018-01-22] MEDS ORDERED: predniSONE 20 MG TAB PO SCH (09:00)
[2018-01-22] MEDS ORDERED: MULTIVITAMIN PO SCH (09:00)
--- NOTE | 2018-01-22 22:22 | Physician Query-Final Dx ---
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
== END 2018-01-21 14:40 | disposition home or self-care (01) ==
LOC: EDUNIT# 21:34 → ER 21:35 → 4TH 23:30
PROVIDERS: ADMIT Family Medicine; ATTEND Family Medicine
DX: S06.5X0A Traumatic subdural hemorrhage without loss of consciousness, initial encounter (principal); S00.83XA Contusion of other part of head, initial encounter; R55 Syncope and collapse; E11.9 Type 2 diabetes mellitus without complications; I10 Essential (primary) hypertension; E66.9 Obesity, unspecified; G89.29 Other chronic pain; F41.9 Anxiety disorder, unspecified; B19.20 Unspecified viral hepatitis C without hepatic coma; Z23 Encounter for immunization; F32.9 Major depressive disorder, single episode, unspecified; R01.1 Cardiac murmur, unspecified; B15.9 Hepatitis A without hepatic coma; K75.81 Nonalcoholic steatohepatitis (NASH); F11.20 Opioid dependence, uncomplicated; W01.10XA Fall on same level from slipping, tripping and stumbling with subsequent striking against unspecified object, initial encounter; Z91.19 Patient's noncompliance with other medical treatment and regimen; Z79.4 Long term (current) use of insulin
CPT/HCPCS: 36415; 70450; 70486; 72125; 80053; 82962; 85025; 85610; 85730; 90471; 90715; 96372; G0378

== ENCOUNTER → 2018-01-22 | Outpatient (CLI) | payer MEDICARE ==
[~2018-01-22] MED LIST changes: +ACHD5005 PO; +AMOX-358 PO; +BISA5TAB49 PO; +HYDR-3812 PO; +INSU100V5 SC; +LORA-407 PO; +LORA2TAB PO; +MULT-324 PO; +OMEG1CAP24 PO; +PANT40TA3 PO; +TIZA4TAB3 PO
== END ==
LOC: CARD 12:06
PROVIDERS: ATTEND Physician Assistant
DX: R01.1 Cardiac murmur, unspecified (principal)
CPT/HCPCS: 93306

== ENCOUNTER → 2018-01-22 | Outpatient (CLI) | payer MEDICARE ==
--- NOTE | 2018-01-22 15:24 | Diagnostic Imaging Report ---
PROCEDURE: MRI lumbar spine. TECHNIQUE: Multiplanar, multisequence MRI of the lumbar spine was performed without contrast. INDICATION: Chronic back pain and right leg pain. Patient reports having a recent fall. COMPARISON: Comparison is made with prior MRI of the lumbar spine performed on 11/11/2017. FINDINGS: Curvature of the lumbar spine is normal. Alignment remains within normal limits. The marrow signal intensity is unremarkable. There are chronic fracture deformities involving the T12 and L2 vertebral bodies, similar to prior MRI. Overall stature remains stable. No further height loss is seen. Remaining lumbar vertebrae show normal stature. No acute compression fracture is seen. There is significant multilevel degenerative disc disease with significant disc space narrowing, desiccation and marginal osteophyte formation. This is similar to prior exam. Conus is unremarkable at the L1-2 level. T12-L1: Hypertrophic facet changes are present. Central canal is patent. No significant neural foraminal narrowing is seen. L1-2: Central canal remains patent. Endplate osteophytes are present. There is mild to moderate neural foraminal narrowing bilaterally. L2-3: Central canal is widely patent. The neural foramina appear patent. L3-4: Hypertrophic facet changes and ligamentous thickening produce moderate trefoil stenosis to the canal. There is also bilateral lateral recess stenosis and moderate bilateral neural foraminal stenosis. L4-5: Bulky facet changes with ligamentous thickening and broad-based disc/osteophyte complex creates severe central canal stenosis, similar to prior exam. There is significant left and mild right neural foraminal stenosis. L5-S1: Facet changes and broad-based disc/osteophyte complex produces mild central canal narrowing. Moderate bilateral neural foraminal stenosis and significant bilateral lateral recess stenosis is seen. Paraspinous tissues are unremarkable. IMPRESSION: Severe multilevel lumbar degenerative disc and facet disease and multilevel central canal, lateral recess and central and neural foraminal stenosis described level by level above. There are chronic compression fracture deformities of T12 and L2. No new compression fracture is detected. Dictated by: Dictated on workstation # [id number]
== END ==
LOC: RAD 13:20
PROVIDERS: ATTEND Physician Assistant
DX: M48.07 Spinal stenosis, lumbosacral region (principal); M99.73 Connective tissue and disc stenosis of intervertebral foramina of lumbar region; M43.8X4 Other specified deforming dorsopathies, thoracic region; M51.36 Other intervertebral disc degeneration, lumbar region
CPT/HCPCS: 72148

== ENCOUNTER 2018-01-23 06:27 | Emergency (ER) | payer MEDICARE ==
[~2018-01-23] VITALS: Ht 152.4 cm; Wt 75.1 kg
[~2018-01-23 06:27] MED LIST changes: -ACHD5005 PO; -AMOX-358 PO; -LORA-407 PO; -LORA2TAB PO; -OMEG1CAP24 PO; -TIZA4TAB3 PO
[2018-01-23] MEDS ORDERED: ORPHENADRINE 60 MG/2 ML (NORFLEX) AMP IV ONE (07:00)
[2018-01-23] MEDS ORDERED: diphenhydrAMINE 50 MG/ML INJ (BENADRYL) IVP ONE (07:00)
[2018-01-23] MEDS ORDERED: KETOROLAC 30 MG/ML VIAL IVP ONE (07:00)
--- NOTE | 2018-01-23 07:20 | ED Back Pain ---
General Chief Complaint: Back Problems Stated Complaint: RT HIP PAIN Source of Information: Patient, Old Records History of Present Illness Date Seen by Provider: Jan 23, 2018 Time Seen by Provider: 06:32 Initial Comments PT ARRIVES VIA POV FROM HOME PT HAS CHRONIC LOWER BACK PAIN AND LUMBAR RADICULOPATHY STATES HER BACK HAS BEEN HURTING SINCE 1981 PT IS SCHEDULED TO HAVE BACK SURGERY BY DR. MCCOY ON 01/27/18. PT HAS NOT SEEN HIM FOR 4-5 WEEKS PT HAS HAD INCREASED PAIN TO RIGHT "HIP" ( ACTUALLY POINTS TO AREA OF PAIN DIRECTLY OVER RIGHT SI JOINT AREA ) THAT RADIATES DOWN LEFT LEG--PAIN HAS INCREASED OVER THE LAST WEEK PT DENIES ANY INJURY TO THIS AREA NO BOWEL OR BLADDER FUNCTION PROBLEMS NO PARESTHESIAS OR MOTOR DEFICITS PT HAS HAD MULTITUDE OF VISITS RECENTLY FOR THIS PROBLEM--PT STATES "THEY JUST GIVE ME 2 SHOTS AND THAT STOPS IT" STATES SHE RAN OUT OF HER HYDROCODONE AT 0200 THIS AM. PT IN ER 01/17/18 FOR LOW BACK PAIN WITH LUMBAR RADICULOPATHY--GIVEN SHOTS OF TORADOL AND MORPHINE AND GIVEN RX FOR HYDROCODONE BACK IN ER 01/19/18 FOR SAME, AGAIN GIVEN SHOTS OF TORADOL AND MORPHINE AND GIVEN RX FOR PREDNISONE PT SEEN AGAIN 01/20/18 FOR A FALL WITH FACIAL AND HEAD INJURY, AND ADMITTED OVERNIGHT, DISMISSED 01/21/18. HAD A TINY 2 MM FRONTAL SUBDURAL HEMATOMA. STATES SHE DID NOT INJURE HER BACK OR HIP WITH THAT FALL. PT HAD AN MRI OF HER LUMBAR SPINE YESTERDAY PT STATES SHE HAS AN APPOINTMENT TODAY AND TOMORROW AT [facility] PT STATES THAT SHE IS GOING TO COME TO ER EVERY DAY FOR PAIN SHOTS UNTIL HER SURGERY. PT HAS BEEN ON OPIATES FOR THESE CHRONIC PAIN COMPLAINTS--HAD BEEN ON LIQUID MORPHINE, OXYCONTIN AND ANOTHER UNKNOWN PAIN MEDICATION AND THESE WERE DISCONTINUED BY [facility]. PT USED TO SEE DR. JEFFERSON FOR PAIN MANAGEMENT, BUT HE HAS LEFT THE AREA AND NO ONE TOOK OVER HIS PRACTICE. PT HAS BEEN HERE FOR OPIATE AND/OR BENZODIAZEPINE OVERDOSES IN THE PAST PT HAS LONG HISTORY OF NON-COMPLIANCE IN ALL ASPECTS OF CARE 0650--SPOKE WITH DR. MITCHELL, SHE IS VERY FAMILIAR WITH THE PATIENT. SHE REPORTS THAT PT'S PAIN MANAGEMENT CONTRACT HAS BEEN TERMINATED IN THE LAST WEEK OR SO FOR MULTIPLE VIOLATIONS BY PT. SHE ADVISES THAT PT SHOULD NOT BE GIVEN ANY NARCOTICS IN THE ER, OR ANY RX'S FOR PAIN MEDICATIONS, AND ADVISES THAT PT SHOULD KEEP HER APPOINTMENT TODAY AND TOMORROW AT [facility], AND ADVISED THAT PT CONTACT DR. MCCOY FOR HER BACK PAIN COMPLAINTS. Other Comments PCP:[facility] Allergies and Home Medications Allergies Coded Allergies: famotidine (Verified Allergy, Severe, HAIR LOSS, 01/04/17) NOTIFIED ON 01/02/17 TO MEDICAL RECORDS aspirin (Unverified Allergy, Unknown, 11/23/16) hydromorphone (Unverified Allergy, Unknown, 11/23/16) triazolam (Unverified Allergy, Unknown, 11/23/16) Uncoded Allergies: TAPE (Allergy, Mild, RASH, 11/23/16) Home Medications Bisacodyl 5 Mg Tablet, 5 MG PO BID PRN for CONSTIPATION-4TH LINE, (Reported) Insulin Aspart 100 Unit/1 Ml Susp, 10 UNIT SQ AC, (Reported) Insulin Determir 1,000 Units/10 Ml Soln, 40 UNITS SC 1600, (Reported) Metformin HCl 500 Mg Tab.er.24h, 500 MG PO HS, (Reported) Multivitamin 1 Each Tablet, 1 TAB PO DAILY, (Reported) Pantoprazole Sodium 40 Mg Tablet.dr, 40 MG PO DAILY, (Reported) Pregabalin 50 Mg Capsule, 50 MG PO BID, (Reported) Patient Home Medication List Home Medication List Reviewed: Yes Constitutional: no symptoms reported Gastrointestinal: no symptoms reported Genitourinary: no symptoms reported Musculoskeletal: see HPI Skin: no symptoms reported Psychiatric/Neurological: No Symptoms Reported Past Xgaadwv-Pmalqv-Rxvtbr Hx Patient Social History Alcohol Use: Denies Use Recreational Drug Use: No Smoking Status: Never a Smoker 2nd Hand Smoke Exposure: Yes Recent Foreign Travel: No Contact w/Someone Who Travel: No Recent Hopitalizations: No Immunizations Up To Date Tetanus Booster (TDap): Unknown PED Vaccines UTD: No Date of Pneumonia Vaccine: Jun 12, 2014 Date of Influenza Vaccine: May 21, 2016 Seasonal Allergies Seasonal Allergies: No Past Medical History Surgeries: Yes (KNEE, SHOULDERS BILAT, CSPINE SURGERY 01/2015; KYPHOPLASTY L2 ; RIGHT HUMERUS FX/ORIF; DESI WITH ERCP FOR RETAINED CBD STONE; EGD/ COLONOSCOPIES/POLYPECTOMIES-LAST ON 01/14/18; BILATERAL CATARACTS) Section, Eye Surgery, Gallbladder, Orthopedic Respiratory: No Cardiac: Yes (NON-COMPLIANT WITH MEDICATIONS; "SYNCOPAL EPISODES" WITH HYPOTENSION, HYPOGLYCEMIA AND EXCESSIVE NARCOTIC/BENZO USE) Heart Murmur, Hypertension Neurological: Yes (PRIOR CVA'S SHOWN ON CT; TINY FRONTAL/PARIETAL SUBDURAL HEMATOMA 01/20/18--NO TREATMENT) Stroke Reproductive Disorders: No 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 Sexually Transmitted Disease: No HIV/AIDS: No Genitourinary: Yes UTI-Chronic Gastrointestinal: Yes (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; HX OF HEPATITIS A AND C-- NO TREATMENT; JOSE) Liver Disease/Jaundice, Chronic Constipation, Diverticulosis, Pancreatitis, Chronic Diarrhea, Hepatitis, Gall Bladder Disease Musculoskeletal: Yes (hx broken pelvis and hips from horse accident, no surgery ; CHRONIC NECK AND BACK PAIN; FREQUENT FALLS--REFUSES TO USE CANE OR WALKER; COMPRESSION FRACTURES; FX LEFT DISTAL RADIUS; FX RIGHT HUMERUS/ORIF; LUMBAR RADICULOPATHY; CHRONIC NARCOTIC USE) Degenerate Disk Disease, Arthritis, Chronic Back Pain, Fractures Endocrine: Yes (LONG HISTORY OF NON-COMPLIANCE; OBESITY) Diabetes, Insulin dep HEENT: Yes Cataract Loss of Vision: Bilateral Hearing Impairment: Hard of Hearing Cancer: No Psychosocial: Yes Sleep Difficulties, Anxiety Integumentary: No Blood Disorders: No Adverse Reaction/Blood Tranf: No (HAS HAD BLOOD WITH NO REACTION) Family Medical History Arthritis G8 SISTER Cardiovascular disease 19 MOTHER Diabetes mellitus 19 MOTHER G8 BROTHER Hypertension 19 MOTHER G8 BROTHER G8 BROTHER Myocardial infarction 19 MOTHER G8 BROTHER No Family History of: AIDS Abdominal aortic aneurysm Gordon's disease Alcoholism Alzheimer's disease Aphasia Asthma Cancer of mouth Cataracts Colon cancer Completed stroke Congenital disease Congenital heart disease Coronary thrombosis Cystic fibrosis Deafness or hearing loss Dementia Drug abuse Dysphasia Fibrocystic disease of breast Gastroenteritis Glaucoma Headache disorder Hypercholesterolemia Infertility Kidney disease Neoplasm Not obtainable due to adoption Osteoporosis Parkinson's disease Prostate cancer Psychosocial problem Respiratory disorder Seizure disorder Severe allergy Thyroid disease Tuberculosis Visual disorder Physical Exam Vital Signs Vital Signs - First Documented 01/23/18 06:35 Temp 97.2 Pulse 76 Resp 20 B/P (MAP) 135/81 (99) Pulse Ox 98 O2 Delivery Room Air Capillary Refill : General Appearance: No Apparent Distress, Other (PT ABLE TO STAND AND GET HERSELF ONTO ER CART ON HER OWN. PT THRASHING ALL OVER CART, HOLDING RIGHT SI JOINT AREA. ) Neck: Full Range of Motion Cardiovascular: Regular Rate, Rhythm, Normal Peripheral Pulses Respiratory: Normal Breath Sounds Gastrointestinal: Soft Back: No CVA Tenderness, Other (TENDERNESS TO LUMBAR AREA AND ESPECIALLY OVER RIGHT SI JOINT AREA. FULL ROM OF RIGHT HIP AND HIP IS NON-TENDER. EQUIVOCAL STRAIGHT LEG RAISING ON RIGHT. MOTOR/SENSORY/VASCULAR INTACT. ) Extremity: Normal Capillary Refill, Normal Inspection, Normal Range of Motion, Non Tender, No Calf Tenderness, No Pedal Edema Neurologic/Psychiatric: Alert, Oriented x3, No Motor/Sensory Deficits, furnace installer II- XII Norm as Tested Skin: Normal Color, Warm/Dry; No Rash Progress/Results/Core Measures Results/Orders My Orders Orders - KENA HUFFMAN DO Ketorolac Injection (Toradol Injection) (01/23/18 07:00) Orphenadrine Injection (Norflex Injectio (01/23/18 07:00) Diphenhydramine Injection (Benadryl Inje (01/23/18 07:00) Medications Given in ED Current Medications Medications Dose Ordered Sig/Андрей Route Start Time Stop Time Status Last Admin Dose Admin Diphenhydramine HCl 25 mg ONCE ONCE IVP 01/23/18 07:00 01/23/18 07:01 DC 01/23/18 07:10 25 MG Ketorolac Tromethamine 30 mg ONCE ONCE IVP 01/23/18 07:00 01/23/18 07:01 DC 01/23/18 07:10 30 MG Orphenadrine Citrate 60 mg ONCE ONCE IV 01/23/18 07:00 01/23/18 07:01 DC 01/23/18 07:10 60 MG Vital Signs/I&O 01/23/18 06:35 Temp 97.2 Pulse 76 Resp 20 B/P (MAP) 135/81 (99) Pulse Ox 98 O2 Delivery Room Air Departure Impression Primary Impression: Chronic low back pain with right-sided sciatica Additional Impression: Pain of right sacroiliac joint Disposition: HOME, SELF-CARE Condition: Stable Departure-Patient Inst. Referrals: [facility] (PCP/Family) Primary Care Physician Patient Instructions: Low Back Pain (DC), MANAGING YOUR CHRONIC PAIN, Radiculopathy (DC), Sacroiliac Joint Pain Add. Discharge Instructions: ALTERNATE ICE AND HEAT TO SORE AREAS AT 20 MINUTE INTERVALS FOLLOW UP WITH [facility] TODAY AND TOMORROW SCHEDULED CONTACT DR. MCCOY FOR FURTHER CARE All discharge instructions reviewed with patient and/or family. Voiced understanding. KENA HUFFMAN DO Jan 23, 2018 07:20
[2018-01-23 07:53] VITALS: BP 135/81
== END 2018-01-23 07:53 | disposition home or self-care (01) ==
LOC: EDUNIT# 06:27 → ER 06:28
DX: M54.31 Sciatica, right side (principal); G89.29 Other chronic pain; M53.3 Sacrococcygeal disorders, not elsewhere classified; I10 Essential (primary) hypertension; B19.20 Unspecified viral hepatitis C without hepatic coma; E66.9 Obesity, unspecified; E11.9 Type 2 diabetes mellitus without complications; F41.9 Anxiety disorder, unspecified; Z68.32 Body mass index [BMI] 32.0-32.9, adult; Z82.49 Family history of ischemic heart disease and other diseases of the circulatory system; Z91.81 History of falling; Z87.19 Personal history of other diseases of the digestive system; Z87.440 Personal history of urinary (tract) infections; Z86.73 Personal history of transient ischemic attack (TIA), and cerebral infarction without residual deficits; Z88.6 Allergy status to analgesic agent; Z88.8 Allergy status to other drugs, medicaments and biological substances; Z79.4 Long term (current) use of insulin; Z77.22 Contact with and (suspected) exposure to environmental tobacco smoke (acute) (chronic); Z90.49 Acquired absence of other specified parts of digestive tract; Z87.59 Personal history of other complications of pregnancy, childbirth and the puerperium; Z86.010 Personal history of colon polyps; Z91.14 Patient's other noncompliance with medication regimen
CPT/HCPCS: 96374; 96375

== ENCOUNTER 2018-01-27 06:23 | Inpatient (IN) | payer MEDICARE ==
[2018-01-26] MEDS: fentaNYL INJECTION 100 MCG/2 ML AMP IVP PRN (11:17)
[~2018-01-27] VITALS: Ht 152.4 cm; Wt 75.1 kg
[2018-01-27] MEDS ORDERED: ceFAZolin 2 GM IV Premixed 50 ML IV ONE (06:30)
[2018-01-27 06:35] VITALS: BP 154/87
[2018-01-27] MEDS ORDERED: LIDOCAINE PF 2% 5 ML (XYLOCAINE) VIAL ONE (07:08)
[2018-01-27] MEDS ORDERED: MIDAZOLAM 2 MG/2 ML (VERSED) VIAL ONE (07:08)
[2018-01-27] MEDS ORDERED: ROCURONIUM 10 MG/ML 5 ML SYRINGE IV ONE (07:08)
[2018-01-27] MEDS ORDERED: DEXMEDETOMIDINE 200 MCG/2 ML (PRECEDEX) VIAL IV ONE (07:08)
[2018-01-27] MEDS ORDERED: SEVOFLURANE (ULTANE) 15 ML INHAL SOLN ONE ×9 (07:08→13:18)
[2018-01-27] MEDS ORDERED: proPOfol 200 MG/20 ML (DIPRIVAN) VIAL IV ONE (07:08)
[2018-01-27] MEDS ORDERED: fentaNYL INJECTION 100 MCG/2 ML AMP ONE ×2 (07:08→11:16)
[2018-01-27] MEDS: LACTATED RINGERS 1,000 ML IV PRN ×3 (07:10→10:35)
[2018-01-27] MEDS ORDERED: NS (IVPB) 250 ML ONE ×2 (07:14→08:21)
[2018-01-27] MEDS ORDERED: BACITRACIN 100,000 UNIT/NS 1000 ML POUR BOTTLE IR ONE ×2 (07:15)
[2018-01-27] MEDS ORDERED: VANCOMYCIN 1000 MG/VIAL ONE ×2 (07:18→08:21)
[2018-01-27] MEDS ORDERED: BUP/EPI 0.5% 1:200,000 (SENSORCAINE) 30 ML VIAL ONE (07:18)
[2018-01-27] MEDS ORDERED: OMEG1CAP24 PO (08:00)
[2018-01-27] MEDS ORDERED: LISI-556 PO (08:00)
[2018-01-27] MEDS ORDERED: TEMA30CA PO (08:00)
[2018-01-27] MEDS ORDERED: LORA-407 PO (08:00)
[2018-01-27] MEDS ORDERED: PRAV20TA3 PO (08:00)
[2018-01-27] MEDS ORDERED: VANCOMYCIN INJECTION 1,000 MG in NS (IVPB) 250 ML IV ONE (08:45)
[2018-01-27] MEDS ORDERED: LACTATED RINGERS 1,000 ML IV ONE ×2 (09:08→10:31)
--- NOTE | 2018-01-27 10:25 | Diagnostic Imaging Report ---
Indication: Fluoroscopy for a lumbar laminectomy. Fluoroscopy was provided in the OR during a lumbar laminectomy and posterior instrumented fusion. 46 seconds of fluoroscopy was utilized. Multiple images demonstrate bipedicular screws from proximal L3-S1. Impression: Fluoroscopy for lumbar spine surgery. Dictated by: Dictated on workstation # [id number]
[2018-01-27] MEDS: fentaNYL INJECTION 100 MCG/2 ML AMP IVP PRN ×9 (11:22→23:25)
[2018-01-27] MEDS ORDERED: ONDANSETRON 4 MG/2 ML (SDV) Z0FRAN IVP PRN (11:30)
[2018-01-27] MEDS ORDERED: MEPERIDINE (DEMEROL) INJ 50 MG/ML IVP PRN (11:30)
[2018-01-27] MEDS ORDERED: fentaNYL INJECTION 250 MCG/5 ML AMP ONE (11:37)
[2018-01-27 12:00] VITALS: BP 136/66
[2018-01-27] MEDS ORDERED: ONDANSETRON 4 MG/2 ML (SDV) Z0FRAN IV PRN (12:15)
[2018-01-27] MEDS ORDERED: NON-FORMULARY MEDICATION 1 EA EA (Temazepam 30 MG) PO PRN (12:15)
[2018-01-27] MEDS ORDERED: NON-FORMULARY MEDICATION 1 EA EA (Lorazepam (Ativan) 2 MG) PO PRN (12:15)
[2018-01-27] MEDS ORDERED: ACETAMINOPHEN 325 MG TABLET PO PRN (12:15)
[2018-01-27] MEDS ORDERED: BISACODYL 5 MG PO PRN (12:15)
[2018-01-27] MEDS ORDERED: TEMAZEPAM 15 MG (RESTORIL) CAP PO PRN (13:30)
[2018-01-27] MEDS: CATHETER FLUSH 10 ML SYR IV SCH ×2 (13:37→22:27)
[2018-01-27] MEDS ORDERED: CATHETER FLUSH 10 ML SYR IV PRN (13:45)
[2018-01-27] MEDS ORDERED: BISACODYL 5 MG (DULCOLAX) TABLET PO PRN (13:45)
[2018-01-27] MEDS: HYDROcodone/APAP 5 MG/325 MG (LORTAB) TAB PO PRN ×2 (14:08→21:17)
[2018-01-27] MEDS ORDERED: INSULIN VIAL ASPART for PUMP 100 UNIT/ML VIAL SQ SCH (16:00)
[2018-01-27] MEDS ORDERED: inSUlin DETERMIR 1000 UNITS/10 ML VIAL (LEVEMIR) SQ SCH (16:00)
[2018-01-27 16:20] VITALS: BP 74/38
[2018-01-27] MEDS: inSUlin ASPART (NovoLOG) 1 UNIT/0.01 ML (CHARGE PER UNIT) SC SCH (16:45)
[2018-01-27] MEDS: inSUlin DETERMIR 1 UNIT/0.01 ML (LEVEMIR) CHARGE PER UNIT SQ SCH (16:47)
[2018-01-27] MEDS: ceFAZolin INJECTION 1,000 MG in NS (IVPB) 50 ML IV SCH ×2 (16:48→23:26)
[2018-01-27] MEDS: CYCLOBENZAPRINE 10 MG (FLEXERIL) TAB PO PRN (17:49)
--- NOTE | 2018-01-27 18:43 | OPERATIVE REPORT ---
DATE OF SERVICE: 01/27/2018 SURGEON: Elio Kennedy DO PROGRAM COORDINATOR EXECUTIVE EDUCATION: GLENDA Brand This is a medically necessary procedure. Assistance is necessary for retraction of vital neurovascular structures. Without an assistant speech language pathologist, the procedure would not be possible. PREOPERATIVE DIAGNOSES: 1. Lumbar spinal stenosis (central, connective tissue, bony). 2. Lumbar radiculopathy. 3. Neurogenic claudication. POSTOPERATIVE DIAGNOSES: 1. Lumbar spinal stenosis (central, connective tissue, bony). 2. Lumbar radiculopathy. 3. Neurogenic claudication. PROCEDURE PERFORMED: 1. Bilateral laminectomies with facetectomies and foraminotomies L3-L4, L4-L5, L5-S1. 2. Transforaminal lumbar interbody fusion L5-S1. 3. Application of titanium cage L5-S1. 4. Posterior spinal instrumentation L3-L4, L4-L5, L5-S1. 5. Posterior spinal fusion L3-L4, L4-L5, L5-S1. 6. Use of human allograft for spine. 7. Use of local bone autograft. 8. Repair of durotomy. COMPLICATIONS: Durotomy. DRAIN PLACED: Hemovac. ANESTHESIA: General endotracheal anesthesia with local anesthetic. SPECIMENS SENT: None. HISTORY OF PRESENT ILLNESS: The patient is a very pleasant 77-year-old female who presented to me with severe neurogenic claudication, which compromised her quality of life. She did not respond to any conservative treatments and did wish to proceed with operative intervention. She understood the risks and benefits. DESCRIPTION OF PROCEDURE: The patient was identified by name on wrist band in the preoperative holding area. Her operative site was signed, consent was signed. SCDs were placed. Neuro monitor was hooked up and antibiotics were started. She was taken to the operating room theater and placed under general endotracheal tube anesthesia and transferred to the operating room table in a prone position. She was prepped and draped in usual sterile fashion. Formal timeout was conducted. At this point, I made a midline incision over the lumbar spine. I proceeded with bilateral subperiosteal paraspinal muscular approach exposing the L3-S1. After the exposure was complete, I brought the lateral x-ray and I placed pedicle screws bilaterally at L3, L4, L5 and S1 utilizing open pedicle screw technique. Once the screws were in place, I tested them with EMG nerve monitoring. The screws were in good position. I then turned my attention to the L5-S1 TLIF. Therefore, I placed distraction across the L5-S1 spinous processes. I performed a complete facetectomy at L5-S1 on the left, identifying the disk space. I made an annulotomy. I then performed a complete diskectomy. I then sized and chose the appropriate titanium interbody cage packed with human allograft and local bone autograft and seated in the midline position. At this point, I proceeded with bilateral laminectomies with complete facetectomies and foraminotomies at L3-L4, L4-L5, L5-S1. Then, I used a high speed bur and Kerrison rongeurs. When I was happy with the decompression, I did note a small punctate durotomy, which was dorsal and easily accessed. Therefore, I used a 4-0 Nurolon stitch and made a [id number] closure of that durotomy. I placed Duragen and over sprayed it with Tisseel for a watertight seal. I thoroughly irrigated the wound with 2 liters of antibiotic enhanced irrigation. I packed human allograft and local bone autograft on the left and right gutter to promote posterior spinal fusion. I placed a nabeel on the left, a nabeel on the right. I placed set screws and final tightened those set screws. I placed a deep subfascial Hemovac drain. I closed the wound in my usual layered fashion utilizing 0 Vicryl followed by 2-0 Vicryl followed by opal for skin. I applied dressings, took the patient in the supine position to the PACU where she awoke without incident. She tolerated the procedure well. The plan at this time is to discharge the patient in 2 to 3 days when she is considered stable. She will receive antibiotics and IV pain control. I will get her a brace to wear while she is out of bed. Please note, instrumentation utilized for this procedure was NuVasive for everything. Job ID: [id number] DocumentID: [id number] Dictated Date: 01/27/2018 11:23:05 Single Ending Machine Operator Date: 01/27/2018 18:43:19 Dictated By: ELIO KENNEDY DO
[2018-01-27 20:00] VITALS: BP 114/55
[2018-01-27] MEDS ORDERED: NON-FORMULARY MEDICATION 1 EA EA (Pregabalin (Lyrica) 50 MG) PO SCH (21:00)
[2018-01-27] MEDS ORDERED: NON-FORMULARY MEDICATION 1 EA EA (Pravastatin Sodium 20 MG) PO SCH (21:00)
[2018-01-27] MEDS: PREGABALIN 50 MG (LYRICA) CAP PO SCH (21:15)
[2018-01-27] MEDS: SIMvastatin 10 MG (ZOCOR) TAB PO SCH (21:15)
[2018-01-27] MEDS: DOCUSATE SODIUM 100 MG (COLACE) CAP PO SCH (21:15)
[2018-01-28] VITALS: BP 103/58
[2018-01-28] MEDS: oxyCODONE/APAP 5/325MG (PERCOCET 5) TABLET PO PRN ×4 (00:39→17:43)
[2018-01-28 04:00] VITALS: BP 145/62
[2018-01-28] MEDS: CYCLOBENZAPRINE 10 MG (FLEXERIL) TAB PO PRN ×2 (04:29→20:41)
[2018-01-28 06:21] LABS: HEMOGLOBIN 8.3 G/DL (11.5-16.0); MEAN PLATELET VOLUME 10.2 FL (7.4-10.4); RED BLOOD COUNT 2.43 10^6/uL (4.35-5.85); RED CELL DISTRIBUTION WIDTH 14.5 % (10.0-14.5); WHITE BLOOD COUNT 4.8 10^3/uL (4.3-11.0)
[2018-01-28] MEDS: CATHETER FLUSH 10 ML SYR IV SCH ×3 (06:33→22:16)
[2018-01-28] MEDS: MULTIVIT W/MINERALS TAB (THERAGRAN M) PO SCH (06:34)
[2018-01-28] MEDS: inSUlin ASPART (NovoLOG) 1 UNIT/0.01 ML (CHARGE PER UNIT) SC SCH ×3 (06:35→16:16)
[2018-01-28 06:42] LABS: ALANINE AMINOTRANSFERASE 14 U/L (0-55); ALBUMIN 3.1 GM/DL (3.2-4.5); ALKALINE PHOSPHATASE 68 U/L (40-136); BILIRUBIN,TOTAL 0.6 MG/DL (0.1-1.0); BUN/CREATININE RATIO 26; CALCIUM 8.2 MG/DL (8.5-10.1); CARBON DIOXIDE 22 MMOL/L (21-32); CHLORIDE 107 MMOL/L (98-107); GFR ESTIMATED > 60; GLUCOSE 166 MG/DL (70-105); SODIUM 140 MMOL/L (135-145); TOTAL PROTEIN 5.2 GM/DL (6.4-8.2)
--- NOTE | 2018-01-28 07:08 | Progress Note (SOAP) ---
Subjective Date Seen by Provider: Jan 28, 2018 Time Seen by Provider: 07:03 Subjective/Events-last exam Renetta is POD #1 s/p L3-S1 laminectomy and L5-S1 TLIF L3-S1 PSIF. SHe is laying flat in bed due to durotomy with repair. Her pain is controlled. currently has no complaints. She denies any new symptoms today. Review of Systems General: No Chills, No Night Sweats HEENT: No Head Aches Cardiovascular: No: Chest Pain Gastrointestinal: No: Nausea, Vomiting, Abdominal Pain Musculoskeletal: back pain Neurological: No: Weakness, Numbness, Incoordination Objective Exam Vital Signs Date Time Temp Pulse Resp B/P (MAP) Pulse Ox O2 Delivery O2 Flow Rate FiO2 01/28/18 04:00 97.8 102 18 145/62 (89) 100 Nasal Cannula 3.00 01/28/18 00:00 99.5 98 16 103/58 (73) 100 Nasal Cannula 3.00 01/27/18 20:15 100 Nasal Cannula 3.00 01/27/18 20:00 98.2 95 20 114/55 (74) 100 Room Air 01/27/18 16:20 96.9 74 20 74/38 (50) 100 Room Air 01/27/18 12:00 96.0 68 20 136/66 (89) 100 Room Air I & O 01/28/18 07:00 Intake Total 2990 ml Output Total 1350 ml Balance 1640 ml Capillary Refill : General Appearance: No Apparent Distress Respiratory: Chest Non Tender, No Accessory Muscle Use, No Respiratory Distress , Rhonci Cardiovascular: No Edema, No JVD Peripheral Pulses: 2+ Left Dors-Pedis (L), 2+ Radial Pulses (R) Gastrointestinal: non tender, soft Extremity: Normal Capillary Refill, Normal Inspection, No Calf Tenderness, No Pedal Edema Neurologic/Psychiatric: Alert, Oriented x3 Skin: Normal Color Results Lab Laboratory Tests 01/27/18 15:31: Glucometer 392H 01/27/18 20:54: Glucometer 370H 01/28/18 05:55: Glucometer 168H, White Blood Count 4.8, Red Blood Count 2.43L, Hemoglobin 8.3L, Hematocrit 25L, Mean Corpuscular Volume 103H, Mean Corpuscular Hemoglobin 34, Mean Corpuscular Hemoglobin Concent 33, Red Cell Distribution Width 14.5, Platelet Count 154, Mean Platelet Volume 10.2, Sodium Level 140, Potassium Level 4.0, Chloride Level 107, Carbon Dioxide Level 22, Anion Gap 11, Blood Urea Nitrogen 23H, Creatinine 0.90, Estimat Glomerular Filtration Rate > 60, BUN /Creatinine Ratio 26, Glucose Level 166H, Calcium Level 8.2L, Total Bilirubin 0.6, Aspartate Amino Transf (AST/SGOT) 23, Alanine Aminotransferase (ALT/SGPT) 14, Alkaline Phosphatase 68, Total Protein 5.2L, Albumin 3.1L Assessment/Plan Assessment/Plan Assess & Plan/Chief Complaint assessment: POD #1 s.p PLDF L3-S1, L5-S1 tlif anemia diabetes Plan: drain taken off suction pain control began HOB elevation protocol, raise HOB 15 q 30 minutes, may OOB if asymptomatic when at 90 PT to evaluate later today monitor labs lumbar x-ray today Clinical Quality Measures DVT/VTE Risk/Contraindication: Risk Factor Score Per Nursin RFS Level Per Nursing on Admit: 4+=Very High NIKHIL ZABALA Jan 28, 2018 07:08
[2018-01-28 08:00] VITALS: BP 110/53
[2018-01-28] MEDS: lisINopril 5 MG (PRINIVIL) TABLET PO SCH (08:21)
[2018-01-28] MEDS: DOCUSATE SODIUM 100 MG (COLACE) CAP PO SCH ×2 (08:21→20:39)
[2018-01-28] MEDS: PREGABALIN 50 MG (LYRICA) CAP PO SCH ×2 (08:21→20:39)
[2018-01-28] MEDS: ceFAZolin INJECTION 1,000 MG in NS (IVPB) 50 ML IV SCH (08:21)
[2018-01-28] MEDS ORDERED: MULTIVITAMIN PO SCH (09:00)
[2018-01-28] MEDS: fentaNYL INJECTION 100 MCG/2 ML AMP IVP PRN ×3 (09:16→18:04)
--- NOTE | 2018-01-28 11:02 | Anesthesia-General Post-Op ---
General Patient Condition Mental Status/LOC: Same as Preop Cardiovascular: Satisfactory Nausea/Vomiting: Absent Respiratory: Satisfactory Pain: Controlled Complications: Absent Post Op Complications Complications None Follow Up Care/Instructions Patient Instructions None needed. Anesthesia/Patient Condition Patient Condition Patient is doing well, no complaints, stable vital signs, no apparent adverse anesthesia problems. No complications reported per nursing. SIERRA ÁLVAREZ CRNA Jan 28, 2018 11:02
[2018-01-28] MEDS ORDERED: NS IV 1000 ML 1,000 ML ONE (11:59)
[2018-01-28 12:00] VITALS: BP 75/37
[2018-01-28] MEDS: NS IV 1000 ML 1,000 ML IV SCH ×2 (13:00→22:22)
[2018-01-28] MEDS ORDERED: NS IV 1000 ML 1,000 ML IV SCH (13:00)
--- NOTE | 2018-01-28 13:37 | Physical Therapy Progress Note ---
Therapy Progress Note Patient has not tolerated the HOB elevation and had a decrease in BP. Per RN, PT to hold on this date and to check on patient's status in a.m. NINOSKA ASHBY PT Jan 28, 2018 13:37
[2018-01-28 16:00] VITALS: BP 105/52
[2018-01-28] MEDS: inSUlin DETERMIR 1 UNIT/0.01 ML (LEVEMIR) CHARGE PER UNIT SQ SCH (16:20)
--- NOTE | 2018-01-28 17:49 | Diagnostic Imaging Report ---
INDICATION: Lumbar spine surgery. FINDINGS: AP and lateral views of the lumbar spine are obtained. Skin opal are seen posteriorly. Bipedicular posterior lumbar spinal fusion extends from L3-S1 with L5-S1 disc prosthesis in place. There has been augmentation of L2 vertebral body. IMPRESSION: Lumbar spinal intervention as described without evidence of acute abnormality or acute complication. Dictated by: Dictated on workstation # [id number]
[2018-01-28 19:34] VITALS: BP 111/53
[2018-01-28 19:50] LABS: BILIRUBIN,URINE NEGATIVE (NEGATIVE); CLARITY,URINE CLEAR; COLOR,URINE YELLOW; GLUCOSE, URINE (UA) 3+ (NEGATIVE); KETONES,URINE NEGATIVE (NEGATIVE); LEUKOCYTE ESTERASE ,URINE 1+ (NEGATIVE); NITRITE,URINE NEGATIVE (NEGATIVE); PH,URINE 5 (5-9); PROTEIN,URINE 2+ (NEGATIVE); UROBILINOGEN,URINE NORMAL (NORMAL)
[2018-01-28 20:05] LABS: BACTERIA,URINE TRACE /HPF
[2018-01-28] MEDS: SIMvastatin 10 MG (ZOCOR) TAB PO SCH (20:39)
--- NOTE | 2018-01-28 20:44 | Diagnostic Imaging Report ---
INDICATION: Fever and cough 2004 hrs. Semiupright AP view of the chest is obtained with comparison made to study of 01/19/2018. There is suboptimal inspiration with slight perihilar atelectasis or scarring. No pneumothorax or consolidation is identified. Surgical changes are again noted in the cervical spine and right shoulder. There is no evidence of new abnormality. IMPRESSION: Suboptimal inspiration with probable mild perihilar atelectasis or scarring. No other acute abnormality or adverse change is detected. Dictated by: Dictated on workstation # [id number]
[2018-01-28] MEDS: CIPROFLOXACIN 500 MG (CIPRO) TABLET PO SCH ×2 (21:00→23:00)
[2018-01-28] MEDS: HYDROcodone/APAP 5 MG/325 MG (LORTAB) TAB PO PRN (22:17)
[2018-01-29] VITALS: BP 110/53
[2018-01-29 05:00] VITALS: BP 115/58
[2018-01-29 06:30] LABS: BASOPHILS % (AUTO) 0 % (0-10); EOSINOPHILS % (AUTO) 1 % (0-10); HEMATOCRIT 21 % (35-52); HEMOGLOBIN 7.1 G/DL (11.5-16.0); LYMPHOCYTES % (AUTO) 19 % (12-44); MEAN CORPUSCULAR HEMOGLOBIN 35 PG (25-34); MEAN CORPUSCULAR HGB CONC 34 G/DL (32-36); MEAN CORPUSCULAR VOLUME 104 FL (80-99); MEAN PLATELET VOLUME 9.9 FL (7.4-10.4); MONOCYTES # (AUTO) 0.2 X 10^3 (0.0-1.0); MONOCYTES % (AUTO) 4 % (0-12); NEUTROPHILS % (AUTO) 76 % (42-75); PLATELET COUNT 105 10^3/uL (130-400); RED BLOOD COUNT 2.03 10^6/uL (4.35-5.85); RED CELL DISTRIBUTION WIDTH 14.4 % (10.0-14.5); WHITE BLOOD COUNT 5.2 10^3/uL (4.3-11.0)
[2018-01-29 06:45] LABS: BUN/CREATININE RATIO 30; CALCIUM 7.7 MG/DL (8.5-10.1); CARBON DIOXIDE 19 MMOL/L (21-32); CHLORIDE 110 MMOL/L (98-107); CREATININE SERUM 0.84 MG/DL (0.60-1.30); GFR ESTIMATED > 60; GLUCOSE 246 MG/DL (70-105); POTASSIUM 4.4 MMOL/L (3.6-5.0); SODIUM 138 MMOL/L (135-145)
[2018-01-29] MEDS: inSUlin ASPART (NovoLOG) 1 UNIT/0.01 ML (CHARGE PER UNIT) SC SCH ×6 (07:27→21:22)
[2018-01-29] MEDS: MULTIVIT W/MINERALS TAB (THERAGRAN M) PO SCH (07:27)
[2018-01-29] MEDS: CATHETER FLUSH 10 ML SYR IV SCH ×3 (07:27→21:24)
[2018-01-29] MEDS: fentaNYL INJECTION 100 MCG/2 ML AMP IVP PRN ×2 (07:28→08:59)
[2018-01-29 08:00] VITALS: BP 102/63
[2018-01-29] MEDS: NS IV 1000 ML 1,000 ML IV SCH ×2 (08:53→18:38)
[2018-01-29] MEDS: DOCUSATE SODIUM 100 MG (COLACE) CAP PO SCH ×2 (08:53→20:35)
[2018-01-29] MEDS: lisINopril 5 MG (PRINIVIL) TABLET PO SCH (08:53)
[2018-01-29] MEDS: CIPROFLOXACIN 500 MG (CIPRO) TABLET PO SCH (08:59)
[2018-01-29] MEDS: PREGABALIN 50 MG (LYRICA) CAP PO SCH ×2 (09:00→20:34)
[2018-01-29] MEDS: HYDROcodone/APAP 5 MG/325 MG (LORTAB) TAB PO PRN ×2 (09:00→20:32)
[2018-01-29] MEDS: CYCLOBENZAPRINE 10 MG (FLEXERIL) TAB PO PRN (09:00)
--- NOTE | 2018-01-29 09:44 | Progress Note (SOAP) ---
Subjective Date Seen by Provider: Jan 29, 2018 Time Seen by Provider: 06:00 Subjective/Events-last exam POD #2 s/p PLDF. no complaints this am. Had an episode of HTN yesterday which resolved with fluid repletion. Also has developed a fever. She has not been compliant with IS. She denies CP or SOB Review of Systems General: Chills; No Night Sweats HEENT: No Head Aches Pulmonary: No Dyspnea, No Cough Cardiovascular: No: Chest Pain Gastrointestinal: No: Nausea, Vomiting Genitourinary: No Dysuria Musculoskeletal: back pain Neurological: No: Weakness, Numbness, Incoordination, Change in speech, Confusion Objective Exam Vital Signs Date Time Temp Pulse Resp B/P (MAP) Pulse Ox O2 Delivery O2 Flow Rate FiO2 01/29/18 08:00 99.5 94 22 102/63 (76) 96 Room Air 01/29/18 05:00 99.5 94 20 115/58 (77) 95 Nasal Cannula 2.00 01/29/18 00:00 101.6 104 20 110/53 (72) 95 Nasal Cannula 2.00 01/28/18 22:17 101.4 01/28/18 20:00 Room Air 01/28/18 19:34 101.0 99 16 111/53 (72) 95 Room Air 01/28/18 16:00 98.9 93 20 105/52 (69) 97 Room Air 01/28/18 12:00 98.9 88 18 75/37 (50) 100 Room Air 01/28/18 10:06 96 Nasal Cannula 3.00 I & O 01/29/18 07:00 Intake Total 3750 ml Output Total 820 ml Balance 2930 ml Capillary Refill : General Appearance: No Apparent Distress Respiratory: No Accessory Muscle Use, No Respiratory Distress Gastrointestinal: non tender, soft Extremity: Normal Inspection, No Pedal Edema Neurologic/Psychiatric: Alert, Oriented x3 Skin: Normal Color Results Lab Laboratory Tests 01/28/18 11:03: Glucometer 132H 01/28/18 15:59: Glucometer 220H 01/28/18 19:45: Urine Color YELLOW, Urine Clarity CLEAR, Urine pH 5, Urine Specific [place] 1.020, Urine Protein 2+H, Urine Glucose (UA) 3+H, Urine Ketones NEGATIVE, Urine Nitrite NEGATIVE, Urine Bilirubin NEGATIVE, Urine Urobilinogen NORMAL, Urine Leukocyte Esterase 1+H, Urine RBC (Auto) NEGATIVE, Urine RBC NONE, Urine WBC 10- 25H, Urine Crystals NONE, Urine Bacteria TRACE, Urine Casts PRESENT, Urine Hyaline Casts 10-25H, Urine Mucus LARGEH, Urine Culture Indicated YES 01/28/18 20:46: Glucometer 315H 01/29/18 06:17: White Blood Count 5.2, Red Blood Count 2.03L, Hemoglobin 7.1L, Hematocrit 21L, Mean Corpuscular Volume 104H, Mean Corpuscular Hemoglobin 35H, Mean Corpuscular Hemoglobin Concent 34, Red Cell Distribution Width 14.4, Platelet Count 105L, Mean Platelet Volume 9.9, Neutrophils (%) (Auto) 76H, Lymphocytes (%) (Auto) 19 , Monocytes (%) (Auto) 4, Eosinophils (%) (Auto) 1, Basophils (%) (Auto) 0, Neutrophils # (Auto) 4.0, Lymphocytes # (Auto) 1.0, Monocytes # (Auto) 0.2, Eosinophils # (Auto) 0.0, Basophils # (Auto) 0.0, Sodium Level 138, Potassium Level 4.4, Chloride Level 110H, Carbon Dioxide Level 19L, Anion Gap 9, Blood Urea Nitrogen 25H, Creatinine 0.84, Estimat Glomerular Filtration Rate > 60, BUN /Creatinine Ratio 30, Glucose Level 246H, Calcium Level 7.7L 01/29/18 06:18: Glucometer 251H Microbiology 01/28/18 Urine Culture - Preliminary, Resulted Sent To [facility] Assessment/Plan Assessment/Plan Assess & Plan/Chief Complaint assessment: POD #1 s.p PLDF L3-S1, L5-S1 tlif anemia diabetes Fever atelactisis UTI, awaiting cultures Plan: continue drain off suction IS at bedside and encouraged calf scd pain control OOB with PT started cipro UTI d/c johnston SSI, BGL elevated today monitor labs Clinical Quality Measures DVT/VTE Risk/Contraindication: Risk Factor Score Per Nursin RFS Level Per Nursing on Admit: 4+=Very High NIKHIL ZABALA Jan 29, 2018 09:44
--- NOTE | 2018-01-29 10:31 | Physical Therapy Evaluation ---
PT Evaluation-General Medical Diagnosis Admission Date Jan 27, 2018 at 06:23 Medical Diagnosis: s/p L3-S1 laminectomy Onset Date: Jan 27, 2018 Therapy Diagnosis Therapy Diagnosis: impaired mobility, strength, endurance Height/Weight Height (Feet): 5 Height (Inches): 0.00 Weight (Pounds): 165 Weight (Ounces): 8.0 Precautions Precautions/Isolations: Fall Prevention, Standard Precautions Weight Bear Status Right Lower Extremity: Right Weight Bearing/Tolerated Left Lower Extremity: Left Weight Bearing/Tolerated Referral Physician: Ellis Morse Reason for Referral: Evaluation/Treatment Medical History Pertinent Medical History: DM Current History had L3-S1 laminectomy, L5-S1 TLIF, L3-S1 PSIF Social History Home: Single Level Current Living Status: Alone Entry Into Home: Stairs Without Railing PT Steps Into Home: 3 Patient states her son has installed some grab bars for the steps to enter the home. Prior/Core FIM Prior Level of Function Functional [place] Measure 0=Not Assessed/NA 4=Minimal Assistance 1=Total Assistance 5=Supervision or Setup 2=Maximal Assistance 6=Modified [place] 3=Moderate Assistance 7=Complete [place] Bed Mobility: 7 Transfers (B,C,W/C) (FIM): 7 Gait: 7 Patient states she used a cane occasionally but usually did not use an assistive device. PT Evaluation-Current Subjective Patient in bed pre tx, agrees to PT, has pain of 5-6/10 in low back. Pt/Family Goals to be independent at home Objective Patient Orientation: Person, Place, Situation Attachments: Sanchez Catheter, IV ROM/Strength ROM Lower Extremities WNL Strength Lower Extremities 3+/5 gross bilateral lower extremities, strength limited by pain. Integumentary/Posture Bladder Incontinence: Sanchez Cath Neuromuscular (Tone, Coordination, Reflexes) NT Sensory Vision: Functional Hearing: Functional Sensation Right Lower Extremit: Impaired Sensation Left Lower Extremity: Impaired Sensation Lower Extremities Patient has decreased sensation in toes bilaterally. Transfers Functional [place] Measure 0=Not Assessed/NA 4=Minimal Assistance 1=Total Assistance 5=Supervision or Setup 2=Maximal Assistance 6=Modified [place] 3=Moderate Assistance 7=Complete [place] Transfers (B, C, W/C) (FIM): 2 Scootin Rollin Supine to/from Sit: 2 Patient performed a log roll with cues with min assist, supine to sit with max assist but sit to supine with mod assist. Patient could not stand yet because her back brace was the wrong size. She will need a new one before she can get out of bed. Patient sat at the edge of the bed for about 10' and performed some exercises. Balance Sitting Static: Good Sitting Dynamic: Good Treatment seated exercises x10 (AP, LAQ, hip flexion) Assessment/Needs Patient has impaired mobility, strength, endurance, post lumbar surgery. Rehab Potential: Fair PT Short Term Goals Short Term Goals Time Frame: Feb 05, 2018 Transfers (B,C,W/C) (FIM): 4 Gait (FIM): 1 Gait Distance Comment: 20' Gait Level of Assist: 4 Gait Assistive Device: FWW PT Plan Problem List Problem List: Activity Tolerance, Functional Strength, Safety, Balance, Gait, Transfer, Bed Mobility, ROM Treatment/Plan Treatment Plan: Continue Plan of Care Treatment Plan: Bed Mobility, Education, Functional Activity Lotus, Functional Strength, Gait, Safety, Therapeutic Exercise, Transfers Treatment Duration: Feb 05, 2018 Frequency: 11 times per week Estimated Hrs Per Day: .25 hour per day (15-30') Patient and/or Family Agrees t: Yes Safety Risks/Education Patient Education: Gait Training, Transfer Techniques, Reviewed Precautions, Correct Positioning, Reviewed Don/Doff Brace, Safety Issues Teaching Recipient: Patient Teaching Methods: Demonstration, Discussion Response to Teaching: Reinforcement Needed Discharge Recommendations Plan Patient will perform bed mobility and transfer training, balance and endurance training, functional strengthening, stair training, gait training, and education , to improve functional mobility and independence at home. Therapy D/C Recommendations: Acute Rehab, Home w/ Family Support Time/GCodes Time In: 1000 Time Out: 1024 Total Billed Treatment Time: 24 Total Billed Treatment 1 visit EVM 15' FA 9' PJ MONTOYA PT Jan 29, 2018 10:31
--- NOTE | 2018-01-29 13:07 | Diagnostic Imaging Report ---
Indication: Aspiration. Frontal chest obtained at 1250 hrs. p.m. and compared with yesterday. There is cardiomegaly. There is a new infiltrate in the right medial base. There is a linear atelectatic change in the left mid lung which is unchanged compared to the prior study. There is no pneumothorax or pleural fluid. Impression: Cardiomegaly. There is some new infiltrate in the right medial base which may represent pneumonia or aspiration. There is linear atelectatic change in the left mid lung. Dictated by: Dictated on workstation # [id number]
[2018-01-29 13:15] VITALS: BP 91/53
[2018-01-29] MEDS ORDERED: AMPICILL/SULB 1.5 GM VIAL (UNASYN) IM SCH (13:45)
[2018-01-29] MEDS: AMPICILLIN/SULBACTAM 1.5 GM/NS 100 ML IVPB IV SCH ×4 (14:58→20:31)
--- NOTE | 2018-01-29 15:11 | Consultation (CHS) ---
HPI History of Present Illness: 77 yo female admitted after lumbar surgery, this morning had coughing, gurgling sounding breathing, chest pain with coughing and somnolence. She had fever starting yesterday. She denies any heart history of lung history in the past. She does believe she had some gagging and difficulty with eating this morning. Source: patient, family Exam Limitations: clinical condition Date seen by provider: Jan 29, 2018 Time Seen by Provider: 13:15 Attending Physician Elio Kennedy DO [facility], Pat Salgado, IAN Consult Date of Admission Jan 27, 2018 at 6:23 am Home Medications Home Medications Reviewed patient Home Medication Reconciliation performed by pharmacy medication reconciliations fingerprint technician and/or nursing. Patients Allergies have been reviewed. Allergies Coded Allergies: famotidine (Verified Allergy, Severe, HAIR LOSS, 01/04/17) NOTIFIED ON 01/02/17 TO MEDICAL RECORDS aspirin (Unverified Allergy, Unknown, 11/23/16) hydromorphone (Unverified Allergy, Unknown, 11/23/16) triazolam (Unverified Allergy, Unknown, 11/23/16) Uncoded Allergies: TAPE (Allergy, Mild, RASH, 11/23/16) [id number]-[id number]-[id number] Hx Patient Social History Alcohol Use: Denies Use Recreational Drug Use: No Smoking Status: Never a Smoker 2nd Hand Smoke Exposure: Yes Recent Foreign Travel: No Contact w/other who traveled: No Recent Hopitalizations: No Recent Infectious Disease Expo: No Physical Abuse Screen: No Sexual Abuse: No Immunizations Up To Date Tetanus Booster (TDap): Unknown Date of Pneumonia Vaccine: Jun 12, 2014 Date of Influenza Vaccine: May 21, 2016 Past Medical History Past Medical History 1. Multiple Falls 2. History of "syncopal episodes" pt. reports increase in episodes when increase in her narcotics 3. Diabetes Mellitus II 4. Hypertension 5. Previous CVA's seen on CT 6. History of previous back fracture with possible kyphoplasty at L2 7. Obesity 8. Chronic pain 9. Anxiety 10. Pancreatitis from common bile duct stone 11. Reported history of hepatitis C and hepatitis A Past Surgical History 1. Cholecystectomy with common bile duct obstruction- ERCP in [place] 2. 3. Knee and Shoulder surgery Family Medical History Significant Family History: CAD Over 55 Years Old, Diabetes, Hypertension Family History: Arthritis G8 SISTER Cardiovascular disease 19 MOTHER Diabetes mellitus 19 MOTHER G8 BROTHER Hypertension 19 MOTHER G8 BROTHER G8 BROTHER Myocardial infarction 19 MOTHER G8 BROTHER No Family History of: AIDS Abdominal aortic aneurysm Harlan's disease Alcoholism Alzheimer's disease Aphasia Asthma Cancer of mouth Cataracts Colon cancer Completed stroke Congenital disease Congenital heart disease Coronary thrombosis Cystic fibrosis Deafness or hearing loss Dementia Drug abuse Dysphasia Fibrocystic disease of breast Gastroenteritis Glaucoma Headache disorder Hypercholesterolemia Infertility Kidney disease Neoplasm Not obtainable due to adoption Osteoporosis Parkinson's disease Prostate cancer Psychosocial problem Respiratory disorder Seizure disorder Severe allergy Thyroid disease Tuberculosis Visual disorder Review of Systems (CHC) Constitutional: fever, malaise EENTM: no symptoms reported Respiratory: cough Cardiovascular: chest pain (with coughing) Gastrointestinal: no symptoms reported Genitourinary: no symptoms reported Musculoskeletal: back pain Skin: no symptoms reported Reviewed Test Results Reviewed Test Results Lab Laboratory Tests Test 01/27/18 15:31 01/27/18 20:54 01/28/18 05:55 01/28/18 11:03 Range/Units Glucometer 392 H 370 H 168 H 132 H 70-110 MG/DL White Blood Count 4.8 4.3-11.0 10^3/uL Red Blood Count 2.43 L 4.35-5.85 10^6/uL Hemoglobin 8.3 L 11.5-16.0 G/DL Hematocrit 25 L 35-52 % Mean Corpuscular Volume 103 H 80-99 FL Mean Corpuscular Hemoglobin 34 25-34 PG Mean Corpuscular Hemoglobin Concent 33 32-36 G/DL Red Cell Distribution Width 14.5 10.0-14.5 % Platelet Count 154 130-400 10^3/uL Mean Platelet Volume 10.2 7.4-10.4 FL Sodium Level 140 135-145 MMOL/L Potassium Level 4.0 3.6-5.0 MMOL/L Chloride Level 107 98-107 MMOL/L Carbon Dioxide Level 22 21-32 MMOL/L Anion Gap 11 5-14 MMOL/L Blood Urea Nitrogen 23 H 7-18 MG/DL Creatinine 0.90 0.60-1.30 MG/DL Estimat Glomerular Filtration Rate > 60 BUN/Creatinine Ratio 26 Glucose Level 166 H 70-105 MG/DL Calcium Level 8.2 L 8.5-10.1 MG/DL Total Bilirubin 0.6 0.1-1.0 MG/DL Aspartate Amino Transf (AST/SGOT) 23 5-34 U/L Alanine Aminotransferase (ALT/SGPT) 14 0-55 U/L Alkaline Phosphatase 68 40-136 U/L Total Protein 5.2 L 6.4-8.2 GM/DL Albumin 3.1 L 3.2-4.5 GM/DL Test 01/28/18 15:59 01/28/18 19:45 01/28/18 20:46 01/29/18 06:17 Range/Units Glucometer 220 H 315 H 70-110 MG/DL Urine Color YELLOW Urine Clarity CLEAR Urine pH 5 5-9 Urine Specific [place] 1.020 1.016-1.022 Urine Protein 2+ H NEGATIVE Urine Glucose (UA) 3+ H NEGATIVE Urine Ketones NEGATIVE NEGATIVE Urine Nitrite NEGATIVE NEGATIVE Urine Bilirubin NEGATIVE NEGATIVE Urine Urobilinogen NORMAL NORMAL MG/DL Urine Leukocyte Esterase 1+ H NEGATIVE Urine RBC (Auto) NEGATIVE NEGATIVE Urine RBC NONE /HPF Urine WBC 10-25 H /HPF Urine Crystals NONE /LPF Urine Bacteria TRACE /HPF Urine Casts PRESENT /LPF Urine Hyaline Casts 10-25 H /LPF Urine Mucus LARGE H /LPF Urine Culture Indicated YES White Blood Count 5.2 4.3-11.0 10^3/uL Red Blood Count 2.03 L 4.35-5.85 10^6/uL Hemoglobin 7.1 L 11.5-16.0 G/DL Hematocrit 21 L 35-52 % Mean Corpuscular Volume 104 H 80-99 FL Mean Corpuscular Hemoglobin 35 H 25-34 PG Mean Corpuscular Hemoglobin Concent 34 32-36 G/DL Red Cell Distribution Width 14.4 10.0-14.5 % Platelet Count 105 L 130-400 10^3/uL Mean Platelet Volume 9.9 7.4-10.4 FL Neutrophils (%) (Auto) 76 H 42-75 % Lymphocytes (%) (Auto) 19 12-44 % Monocytes (%) (Auto) 4 0-12 % Eosinophils (%) (Auto) 1 0-10 % Basophils (%) (Auto) 0 0-10 % Neutrophils # (Auto) 4.0 1.8-7.8 X 10^3 Lymphocytes # (Auto) 1.0 1.0-4.0 X 10^3 Monocytes # (Auto) 0.2 0.0-1.0 X 10^3 Eosinophils # (Auto) 0.0 0.0-0.3 10^3/uL Basophils # (Auto) 0.0 0.0-0.1 10^3/uL Sodium Level 138 135-145 MMOL/L Potassium Level 4.4 3.6-5.0 MMOL/L Chloride Level 110 H 98-107 MMOL/L Carbon Dioxide Level 19 L 21-32 MMOL/L Anion Gap 9 5-14 MMOL/L Blood Urea Nitrogen 25 H 7-18 MG/DL Creatinine 0.84 0.60-1.30 MG/DL Estimat Glomerular Filtration Rate > 60 BUN/Creatinine Ratio 30 Glucose Level 246 H 70-105 MG/DL Calcium Level 7.7 L 8.5-10.1 MG/DL Test 01/29/18 06:18 01/29/18 10:56 Range/Units Glucometer 251 H 268 H 70-110 MG/DL Radiology CXR 01/29/18 DRAFT Impression: Cardiomegaly. There is some new infiltrate in the right medial base which may represent pneumonia or aspiration. There is linear atelectatic change in the left mid lung. Physical Exam-([facility]) Physical Exam Vital Signs VS - Last 72 Hours, by Label 01/27/18 01/27/18 01/27/18 01/27/18 06:35 12:00 16:20 20:00 Temp 98.5 96.0 96.9 98.2 Pulse 86 68 74 95 Resp 18 20 20 20 B/P (MAP) 154/87 (109) 136/66 (89) 74/38 (50) 114/55 (74) Pulse Ox 98 100 100 100 O2 Delivery Room Air Room Air Room Air Room Air 01/27/18 01/28/18 01/28/18 01/28/18 20:15 00:00 04:00 08:00 Temp 99.5 97.8 98.2 Pulse 98 102 86 Resp 16 18 20 B/P (MAP) 103/58 (73) 145/62 (89) 110/53 (72) Pulse Ox 100 100 100 96 O2 Delivery Nasal Cannula Nasal Cannula Nasal Cannula Room Air O2 Flow Rate 3.00 3.00 3.00 01/28/18 01/28/18 01/28/18 01/28/18 08:00 10:06 12:00 16:00 Temp 98.9 98.9 Pulse 88 93 Resp 18 20 B/P (MAP) 75/37 (50) 105/52 (69) Pulse Ox 96 100 97 O2 Delivery Nasal Cannula Nasal Cannula Room Air Room Air O2 Flow Rate 2.00 3.00 01/28/18 01/28/18 01/28/18 01/29/18 19:34 20:00 22:17 00:00 Temp 101.0 101.4 101.6 Pulse 99 104 Resp 16 20 B/P (MAP) 111/53 (72) 110/53 (72) Pulse Ox 95 95 O2 Delivery Room Air Room Air Nasal Cannula O2 Flow Rate 2.00 01/29/18 01/29/18 01/29/18 01/29/18 05:00 08:00 08:00 13:15 Temp 99.5 99.5 99.2 Pulse 94 94 86 Resp 20 22 24 B/P (MAP) 115/58 (77) 102/63 (76) 91/53 (66) Pulse Ox 95 96 96 94 O2 Delivery Nasal Cannula Room Air Room Air Nasal Cannula O2 Flow Rate 2.00 3.00 Capillary Refill : General Appearance: mild distress Eyes: Bilateral Eye EOMI Respiratory: rhonchi Cardiovascular: regular rate, rhythm, no murmur Gastrointestinal: normal bowel sounds, non tender, soft Extremities: no pedal edema Neurologic/Psychiatric: recruitment coordinator II-XII nml as tested, other (somnolent but arousable, speech somewhat difficult to understand (is edentulous), oriented only to self) Skin: normal color, warm/dry Assessment/Plan Assessment/Plan Assessment & Plan s/p lumbar surgery- management per Dr. Kennedy, anticipate d/c to rehab tomorrow if respiratory and mental status appropriate Possible aspiration- aspiration pneumonitis vs aspiration pneumonia. Fever present, but present before suspected aspiration, however given infiltrate on x- ray will start ampicillin-sulbactam. Swallow eval when alert. Stable on 2 lpm supplemental oxygen. Somnolence/confusion- suspect medication induced vs delirium or combination of both. Check UA. Change cyclobenzaprine to tizanidine. On temazepam from home. Simplify pain regimen and try to use lowest dose possible. Possible UTI- culture pending, will stop cipro with starting amp/sulbactam and interaction with tizanidine DMII- continue insulin and metformin, diabetic diet HTN- intermittently hypotensive currently, monitor. On lisinopril per home- only 5 mg. DVT ppx- per Ortho Clinical Quality Measures DVT/VTE Risk/Contraindication: Risk Factor Score Per Nursin RFS Level Per Nursing on Admit: 4+=Very High AGUSTINA LOPES MD Jan 29, 2018 3:11 pm
--- NOTE | 2018-01-29 15:31 | Physical Therapy Daily Note ---
PT Daily Note-Current Subjective Pt laying Supine in bed. Nurse advised just gave pt Flexural so pt is drowsy. Pt agrees to PT. Pain Numeric Pain Scale: 5-Moderate Pain Location Body Site: Back Pain Description: Ache Mental Status Patient Orientation: Person, Place Attachments: SCD's Transfers Functional [place] Measure 0=Not Assessed/NA 4=Minimal Assistance 1=Total Assistance 5=Supervision or Setup 2=Maximal Assistance 6=Modified [place] 3=Moderate Assistance 7=Complete IndependenceIRFPAI Quality Coding Scale 6 Independent with activity with or without an assistive device 5 Patient requires set up or clean up by helper. Patient completes activity by themselves 4 Supervision or touching assist (CGA). [place] provide cues , steadying assist 3 The helper provides less than half the effort to complete the activity 2 The helper provides more than half the effort to complete the activity 1 Dependent. The helper does all the effort to complete an activity 7 Patient refused to complete or attempt activity 9 The patient did not perform the activity before the current illness or injury 88 Not attempted due to Medical conditions or safety concerns Weight Bearing Right Lower Extremity: Right Weight Bearing/Tolerated Left Lower Extremity: Left Weight Bearing/Tolerated Exercises Supine Ex: Ankle pumps, Quad Set, Hip abd/add Supine Reps: 10 Treatments TRANSACTION ADVISORY SERVICES MANAGER has difficulty keeping pt awake during tx. Nurse stated gave pt Muscle Relaxer so pt would be drowsy. Pt completes Supine Ex but has to be woken up several times. Pt resting Supine in bed with SCDs reattached at end of tx. Pt has all needs met, including call light in hand. Assessment Current Status: Fair Progress Pt very drowsy and difficult to keep awake. PT Short Term Goals Short Term Goals Time Frame: Feb 05, 2018 Transfers (B,C,W/C) (FIM): 4 Gait (FIM): 1 Gait Distance Comment: 20' Gait Level of Assist: 4 Gait Assistive Device: FWW PT Plan Problem List Problem List: Activity Tolerance, Functional Strength, Safety Treatment/Plan Treatment Plan: Continue Plan of Care Treatment Plan: Bed Mobility, Education, Functional Activity Lotus, Functional Strength, Gait, Safety, Therapeutic Exercise, Transfers Treatment Duration: Feb 05, 2018 Frequency: 11 times per week Estimated Hrs Per Day: .25 hour per day (15-30') Patient and/or Family Agrees t: Yes Safety Risks/Education Patient Education: Correct Positioning Teaching Recipient: Patient Teaching Methods: Discussion Response to Teaching: Verbalize Understanding Time/GCodes Time In: 1443 Time Out: 1453 Total Billed Treatment Time: 10 Total Billed Treatment 1, EX (10m) G Codes Necessary: CADEN Marina TRANSACTION ADVISORY SERVICES MANAGER Jan 29, 2018 15:31
[2018-01-29 15:40] VITALS: BP 119/77
[2018-01-29] MEDS: inSUlin DETERMIR 1 UNIT/0.01 ML (LEVEMIR) CHARGE PER UNIT SQ SCH (18:36)
[2018-01-29] MEDS ORDERED: IBUPROFEN 600 MG (MOTRIN) TAB PO PRN (18:45)
[2018-01-29] MEDS ORDERED: inSUlin DETERMIR 1 UNIT/0.01 ML (LEVEMIR) CHARGE PER UNIT SQ ONE (18:45)
[2018-01-29] MEDS ORDERED: ACETAMINOPHEN 325 MG TABLET PO PRN (19:00)
[2018-01-29] MEDS: SIMvastatin 10 MG (ZOCOR) TAB PO SCH (20:35)
[2018-01-29] MEDS ORDERED: metFORMIN XR 500 MG (GLUCOPHAGE XR) TAB PO SCH (21:00)
[2018-01-30] VITALS: BP 105/51
[2018-01-30] MEDS: AMPICILLIN/SULBACTAM 1.5 GM/NS 100 ML IVPB IV SCH ×4 (03:30→09:32)
[2018-01-30] MEDS: CATHETER FLUSH 10 ML SYR IV SCH (05:28)
[2018-01-30] MEDS: MULTIVIT W/MINERALS TAB (THERAGRAN M) PO SCH (06:00)
[2018-01-30] MEDS: HYDROcodone/APAP 5 MG/325 MG (LORTAB) TAB PO PRN ×2 (06:00→10:17)
[2018-01-30] MEDS: inSUlin ASPART (NovoLOG) 1 UNIT/0.01 ML (CHARGE PER UNIT) SC SCH ×2 (06:05→06:12)
[2018-01-30] MEDS: NS IV 1000 ML 1,000 ML IV SCH (06:11)
[2018-01-30 08:00] VITALS: BP 114/68
[2018-01-30 08:00] LABS: RED BLOOD COUNT 1.76 10^6/uL (4.35-5.85); WHITE BLOOD COUNT 4.3 10^3/uL (4.3-11.0)
[2018-01-30 08:01] LABS: BASOPHILS % (AUTO) 0 % (0-10); EOSINOPHILS % (AUTO) 0 % (0-10); LYMPHOCYTES # (AUTO) 0.7 X 10^3 (1.0-4.0); LYMPHOCYTES % (AUTO) 15 % (12-44); MEAN CORPUSCULAR HEMOGLOBIN 35 PG (25-34); MEAN CORPUSCULAR HGB CONC 34 G/DL (32-36); MEAN CORPUSCULAR VOLUME 105 FL (80-99); MEAN PLATELET VOLUME 9.7 FL (7.4-10.4); MONOCYTES # (AUTO) 0.1 X 10^3 (0.0-1.0); MONOCYTES % (AUTO) 2 % (0-12); NEUTROPHILS # (AUTO) 3.5 X 10^3 (1.8-7.8); NEUTROPHILS % (AUTO) 82 % (42-75); PLATELET COUNT 97 10^3/uL (130-400); RED CELL DISTRIBUTION WIDTH 14.5 % (10.0-14.5)
[2018-01-30 08:08] LABS: HEMATOCRIT 18 % (35-52); HEMOGLOBIN 6.2 G/DL (11.5-16.0)
[2018-01-30] MEDS ORDERED: NS IV 500 ML 500 ML IV SCH (08:12)
[2018-01-30 08:14] LABS: BUN/CREATININE RATIO 30; CARBON DIOXIDE 19 MMOL/L (21-32); CHLORIDE 111 MMOL/L (98-107); CREATININE SERUM 0.73 MG/DL (0.60-1.30); GFR ESTIMATED > 60; GLUCOSE 150 MG/DL (70-105); POTASSIUM 4.1 MMOL/L (3.6-5.0); SODIUM 138 MMOL/L (135-145)
[2018-01-30] MEDS: DOCUSATE SODIUM 100 MG (COLACE) CAP PO SCH (09:32)
[2018-01-30] MEDS: lisINopril 5 MG (PRINIVIL) TABLET PO SCH (09:32)
[2018-01-30] MEDS: PREGABALIN 50 MG (LYRICA) CAP PO SCH (09:32)
[2018-01-30] MEDS ORDERED: AMOX-358 PO (10:10)
[2018-01-30] MEDS ORDERED: ACHD5005 PO (10:10)
[2018-01-30] MEDS ORDERED: TIZA4TAB3 PO (10:10)
--- NOTE | 2018-01-30 10:12 | Discharge Instructions ---
Discharge [facility] Discharge Medications New, Converted or Re-Newed RX: Other (will need to be done at discharge from rehab) New Medications: Amoxicillin/Potassium Clav (Augmentin 875-125 Tablet) 1 Each Tablet 1 EACH PO BID for 7 Days, TAB 0 Refills Hydrocodone Bit/Acetaminophen (Hydrocodone/Acetaminophen 5/325mg Tablet) 1 Tab Tab 1-2 TAB PO Q4H PRN for PAIN-MODERATE TO SEVERE, #1 TAB Tizanidine HCl (Tizanidine HCl) 4 Mg Tablet 2 MG PO Q6HR PRN for Muscle spasm, #1 TAB Continued Medications: Bisacodyl (Laxative) 5 Mg Tablet 5 MG PO BID PRN for CONSTIPATION-4TH LINE, TAB Insulin Aspart (Novolog) 100 Unit/1 Ml Susp 10 UNIT SQ AC, EACH Insulin Determir (Levemir) 1,000 Units/10 Ml Soln 40 UNITS SC 1600, EA Lisinopril (Lisinopril) 5 Mg Tablet 5 MG PO DAILY, TAB Metformin HCl (Metformin HCl ER) 500 Mg Tab.er.24h 500 MG PO HS, TAB Multivitamin (One Daily) 1 Each Tablet 1 TAB PO DAILY, TAB Anson-3 Fatty Acids/Fish Oil ([place]son 3 Fish Oil Softgel) 1 Each Capsule.dr 1 EACH PO BID, CAP Pravastatin Sodium (Pravastatin Sodium) 20 Mg Tablet 20 MG PO HS, TAB Pregabalin (Lyrica) 50 Mg Capsule 50 MG PO BID, CAP Temazepam (Temazepam) 30 Mg Capsule 30 MG PO HS PRN for SLEEP, CAP Discontinued Medications: Lorazepam (Ativan) 2 Mg Tablet 2 MG PO HS PRN for SLEEP, TAB Patient Instructions Goal/Follow Up Appt: Follow up visits to be determined after rehab completed. Activity & Diet Discharge Diet: ADA Diet Activity as Tolerated: No (per Orthopedic Surgery recommendations) AGUSTINA LOPES MD Jan 30, 2018 10:12 am
[2018-01-30 10:40] VITALS: BP 112/71
--- NOTE | 2018-01-30 10:46 | Progress Note (SOAP) ---
Subjective Subjective/Events-last exam Afebrile, no acute events. Much more alert this morning. Review of Systems Date Seen by Provider: Jan 30, 2018 Time Seen by Provider: 09:00 Objective Exam Last Set of Vital Signs Vital Signs Date Time Temp Pulse Resp B/P (MAP) Pulse Ox O2 Delivery O2 Flow Rate FiO2 01/30/18 10:40 98.1 92 18 112/71 100 Room Air 2.00 Capillary Refill : I&O Intake and Output 01/30/18 00:00 Intake Total 3390 ml Output Total 1330 ml Balance 2060 ml Intake Oral 1390 ml IV Total 2000 ml Output Urine Total 1250 ml Drainage Total 80 ml # Bowel Movements 1 General: Alert, No Acute Distress Lungs: Clear to Auscultation, Normal Air Movement Heart: Regular Rate, Other (holosystolic honking murmur, radiates to carotids) Neuro: Normal Speech Psych/Mental Status: Mood NL Results/Procedures Lab Laboratory Tests 01/29/18 10:56: Glucometer 268H 01/29/18 15:42: Glucometer 131H 01/29/18 21:06: Glucometer 183H 01/30/18 05:57: Glucometer 188H 01/30/18 07:48: White Blood Count 4.3, Red Blood Count 1.76L, Hemoglobin 6.2*L, Hematocrit 18*L , Mean Corpuscular Volume 105H, Mean Corpuscular Hemoglobin 35H, Mean Corpuscular Hemoglobin Concent 34, Red Cell Distribution Width 14.5, Platelet Count 97L, Mean Platelet Volume 9.7, Neutrophils (%) (Auto) 82H, Lymphocytes (% ) (Auto) 15, Monocytes (%) (Auto) 2, Eosinophils (%) (Auto) 0, Basophils (%) ( Auto) 0, Neutrophils # (Auto) 3.5, Lymphocytes # (Auto) 0.7L, Monocytes # (Auto ) 0.1, Eosinophils # (Auto) 0.0, Basophils # (Auto) 0.0, Sodium Level 138, Potassium Level 4.1, Chloride Level 111H, Carbon Dioxide Level 19L, Anion Gap 8 , Blood Urea Nitrogen 22H, Creatinine 0.73, Estimat Glomerular Filtration Rate > 60, BUN/Creatinine Ratio 30, Glucose Level 150H, Calcium Level 8.0L Microbiology 01/28/18 Urine Culture - Final, Complete NO GROWTH Radiology CXR 01/29/18 DRAFT Impression: Cardiomegaly. There is some new infiltrate in the right medial base which may represent pneumonia or aspiration. There is linear atelectatic change in the left mid lung. Assessment/Plan Assessment/Plan Assessment & Plan s/p lumbar surgery- management per Dr. Kennedy, anticipate d/c to rehab tomorrow if respiratory and mental status appropriate 01/30- d/c to IRF Postoperative anemia- hgb 6.2 on 01/30, transfuse one unit Possible aspiration- aspiration pneumonitis vs aspiration pneumonia. Fever present, but present before suspected aspiration, however given infiltrate on x- ray will start ampicillin-sulbactam. Swallow eval when alert. Stable on 2 lpm supplemental oxygen. 01/30- improved significantly, afebrile. Change to Augmentin for 7 day course Somnolence/confusion- suspect medication induced vs delirium or combination of both. Check UA. Change cyclobenzaprine to tizanidine. On temazepam from home. Simplify pain regimen and try to use lowest dose possible. 01/30 RESOLVED Possible UTI- culture pending, will stop cipro with starting amp/sulbactam and interaction with tizanidine 01/30 No growth DMII- continue insulin and metformin, diabetic diet HTN- intermittently hypotensive currently, monitor. On lisinopril per home- only 5 mg. Heart murmur- echo from clinic records on 01/22/18 with severe aortic stenosis, moderate to severe concentric left ventricle hypertrophy. No acute issues apparent, but unclear if she has seen Cardiology for this, will try to investigate further. DVT ppx- per Ortho Clinical Quality Measures DVT/VTE Risk/Contraindication: Risk Factor Score Per Nursin RFS Level Per Nursing on Admit: 4+=Very High AGUSTINA LOPES MD Jan 30, 2018 10:46 am
[2018-01-30 10:55] VITALS: BP 110/70
[2018-01-30 11:15] VITALS: BP 110/70
[2018-01-30 13:20] VITALS: BP 103/66
[2018-01-30] MEDS ORDERED: LORA2TAB PO (15:03)
== END 2018-01-30 11:15 | DRG 453 ==
LOC: 4TH 06:23 → SURG 06:24 → 4TH 13:05
PROVIDERS: ADMIT Orthopaedic Surgery; ATTEND Orthopaedic Surgery
PROC: 0SG1071 Fusion of 2 or more Lumbar Vertebral Joints with Autologous Tissue Substitute, Posterior Approach, Posterior Column, Open Approach (ICD-10-PCS; 2018-01-27)
PROC: 0SG3071 Fusion of Lumbosacral Joint with Autologous Tissue Substitute, Posterior Approach, Posterior Column, Open Approach (ICD-10-PCS; 2018-01-27)
PROC: 00QT0ZZ Repair Spinal Meninges, Open Approach (ICD-10-PCS; 2018-01-27)
PROC: 0SG30AJ Fusion of Lumbosacral Joint with Interbody Fusion Device, Posterior Approach, Anterior Column, Open Approach (ICD-10-PCS; principal; 2018-01-27 08:03)
DX: M48.062 Spinal stenosis, lumbar region with neurogenic claudication (principal); M54.16 Radiculopathy, lumbar region; N39.0 Urinary tract infection, site not specified; G97.41 Accidental puncture or laceration of dura during a procedure; J69.0 Pneumonitis due to inhalation of food and vomit; J98.11 Atelectasis; B15.9 Hepatitis A without hepatic coma; I10 Essential (primary) hypertension; E11.9 Type 2 diabetes mellitus without complications; E78.5 Hyperlipidemia, unspecified; D64.9 Anemia, unspecified; B19.20 Unspecified viral hepatitis C without hepatic coma; F41.9 Anxiety disorder, unspecified; R50.9 Fever, unspecified; E66.9 Obesity, unspecified; I35.0 Nonrheumatic aortic (valve) stenosis; K75.81 Nonalcoholic steatohepatitis (NASH); R41.0 Disorientation, unspecified; R40.0 Somnolence; Z79.84 Long term (current) use of oral hypoglycemic drugs; Z91.19 Patient's noncompliance with other medical treatment and regimen; Z86.73 Personal history of transient ischemic attack (TIA), and cerebral infarction without residual deficits; Z99.81 Dependence on supplemental oxygen; Z87.19 Personal history of other diseases of the digestive system; Z68.32 Body mass index [BMI] 32.0-32.9, adult
CPT/HCPCS: 36415; 71045; 72100; 80048; 80053; 81000; 82962; 85025; 85027; 86850; 86900; 86901; 86920; 87088; 93005; 94664

== ENCOUNTER 2018-01-30 11:21 | Inpatient (IN) | payer MEDICARE, OTHER ==
[~2018-01-30] VITALS: Ht 152.4 cm; Wt 85.3 kg
[~2018-01-30 11:21] MED LIST changes: +ACHD5005 PO; +AMOX-358 PO; +LORA-407 PO; +OMEG1CAP24 PO; +TIZA4TAB3 PO
--- NOTE | 2018-01-30 13:28 | Physical Therapy Evaluation ---
PT Evaluation-General Medical Diagnosis Admission Date Jan 30, 2018 at 11:40 Medical Diagnosis: s/p L3-S1 laminectomy Onset Date: Jan 27, 2018 Therapy Diagnosis Therapy Diagnosis: impaired mobility, strength, endurance Height/Weight Height (Feet): 5 Height (Inches): 0.00 Weight (Pounds): 165 Weight (Ounces): 8.0 Precautions Precautions/Isolations: Fall Prevention, Standard Precautions, Pressure Ulcer Referral Physician: Mj Reason for Referral: Evaluation/Treatment Medical History Pertinent Medical History: DM Current History had L3-S1 laminectomy, L5-S1 TLIF, L3-S1 PSIF Reviewed History: Yes Social History Home: Single Level Current Living Status: Alone Entry Into Home: Stairs With Railing PT Steps Into Home: 3 Patient states her son has installed some grab bars for the steps to enter the home. Prior/Core FIM Prior Level of Function Functional [place] Measure 0=Not Assessed/NA 4=Minimal Assistance 1=Total Assistance 5=Supervision or Setup 2=Maximal Assistance 6=Modified [place] 3=Moderate Assistance 7=Complete [place] Bed Mobility: 7 Transfers (B,C,W/C) (FIM): 7 Gait: 7 Patient states she used a cane occasionally but usually did not use an assistive device. PT Evaluation-Current Subjective Patient in bed pre tx, agrees to PT, has 5-6/10 pain in her low back. Patient is being transferred to rehab this morning. She is also currently getting a unit of blood. Pt/Family Goals "to be independent at home. Objective Patient Orientation: Person, Place, Situation Attachments: Drains, Sanchez Catheter, IV TLSO ROM/Strength ROM Lower Extremities limited generally due to pain Strenght Lower Extremities 4/5 gross bilateral lower extremities Neuromuscular (Tone, Coordination, Reflexes) NT Sensory Vision: Functional Hearing: Functional Sensation Right Lower Extremit: Impaired Sensation Left Lower Extremity: Impaired Sensation Lower Extremities Patient has decreased sensation in toes bilaterally. Transfers Functional [place] Measure 0=Not Assessed/NA 4=Minimal Assistance 1=Total Assistance 5=Supervision or Setup 2=Maximal Assistance 6=Modified [place] 3=Moderate Assistance 7=Complete IndependenceIRFPAI Quality Coding Scale 6 Independent with activity with or without an assistive device 5 Patient requires set up or clean up by helper. Patient completes activity by themselves 4 Supervision or touching assist (CGA). [place] provide cues , steadying assist 3 The helper provides less than half the effort to complete the activity 2 The helper provides more than half the effort to complete the activity 1 Dependent. The helper does all the effort to complete an activity 7 Patient refused to complete or attempt activity 9 The patient did not perform the activity before the current illness or injury 88 Not attempted due to Medical conditions or safety concerns Transfers (B, C, W/C) (FIM): 3 Scootin Rollin Roll Left to Right (QC): 3 Supine to/from Sit: 3 Sit to/from Stand: 4 bed t/f WC(FIM only if WC use): 4 Sit to Lying (QC): 2 Lying to Sitting/Side of Bed(Q: 2 Sit to Stand (QC): 4 Chair/Rrx-go-Erwli Xfer(QC): 4 Patient performs rolling with min assist, supine to sit with mod assist, sit to stand with CGA, and stand pivot transfers with CGA. Patient was not able to perform a car transfer at this time due to pain. Gait Does the Patient Walk?: Yes Mode of Locomotion: Walk Anticipated Mode of Locomotion: Walk Gait (FIM): 1 Walk 10 feet (QC): 4 Walk 50 ft with 2 Turns(QC): 88 Walk 150 ft (QC): 88 Walking 10ft/uneven surface-QC: 88 Distance: 20' Gait Level of Assist: 4 Gait Persons Needed: 1 Gait Assistive Device: FWW Comments/Gait Description Patient can ambulate 20' with a rolling walker with CGA. TLSO donned. Gait is very slow and antalgic, wheelchair follow. Wheelchair Training Does the Pt Use a Wheelchair?: Yes Wheelchair (FIM): 1 Type of Wheelchair: Manual Patient is dependent for wheelchair mobility because pushing the wheel rims with her arms is too painful on her back. Stairs Patient is not safe to perform stairs at this time due to pain, weakness, and poor endurance. Balance Sitting Static: Fair Sitting Dynamic: Fair Standing Static: Fair Standing Dynamic: Fair Assessment/Needs Patient has impaired mobility, strength, endurance post low back surgery. Patient has a lot of pain which limites her mobility. She was placed back into bed post tx with nurse call, phone, tray, all needs met. Rehab Potential: Fair PT Short Term Goals Short Term Goals Time Frame: Feb 06, 2018 Transfers (B,C,W/C) (FIM): 4 Gait (FIM): 2 Gait Distance Comment: 50' Gait Level of Assist: 4 Gait Assistive Device: FWW PT Mcc Goals Mcc Goals PT Mcc Goals Time Frame: Feb 20, 2018 Transfers (B,C,W/C) (FIM): 5 Sit to Lying (QC): 4 Lying-Sitting on Side/Bed(QC): 4 Sit to Stand (QC): 4 Rollin Roll Left to Right (QC): 4 Chair/Dxi-nx-Yjmla Xfer(QC): 4 Car Transfer (QC): 4 Gait (FIM): 5 Distance: 150' Walk 10 feet (QC): 4 Walk 10ft-Uneven Surface(QC): 4 Walk 50ft with 2 Turns (QC): 4 Walk 150 ft (QC): 4 Gait Level of Assist: 5 Gait Assistive Device: FWW Stairs (FIM): 2 # of Steps: 4 1 Step (curb) (QC): 4 4 Steps (QC): 4 12 Steps (QC): 4 Stairs Level Of Assist: 5 PT Plan Problem List Problem List: Activity Tolerance, Functional Strength, Safety, Balance, Gait, Transfer, Bed Mobility, ROM Treatment/Plan Treatment Plan: Continue Plan of Care Treatment Plan: Bed Mobility, Concurrent Therapy, Education, Functional Activity Lotus, Functional Strength, Group Therapy, Gait, Safety, Therapeutic Exercise, Transfers Treatment Duration: Feb 20, 2018 Frequency: At least 5 of 7 days/Wk (IRF) Estimated Hrs Per Day: 1.5 hours per day Patient and/or Family Agrees t: Yes Safety Risks/Education Patient Education: Gait Training, Transfer Techniques, Reviewed Precautions, Correct Positioning, Reviewed Don/Doff Brace, Safety Issues Teaching Recipient: Patient Teaching Methods: Demonstration, Discussion Response to Teaching: Reinforcement Needed Discharge Recommendations Plan Patient will perform bed mobility and transfer training, balance and endurance training, functional strengthening, stair training, gait training, and education to improve functional mobility and independence at home. Therapy D/C Recommendations: Home w/ Family Support Time/GCodes Time In: 1120 Time Out: 1220 Total Billed Treatment Time: 60 Total Billed Treatment 1 visit EVM 30' FA 20' GT 10' PJ MONTOYA PT Jan 30, 2018 13:28
[2018-01-30] MEDS ORDERED: NS IV 1000 ML 1,000 ML IV SCH (14:00)
[2018-01-30 14:21] LABS: HEMOGLOBIN 7.8 G/DL (11.5-16.0)
[2018-01-30] MEDS ORDERED: AMPICILLIN/SULBACTAM INJECTION 1.5 GM in NS (IVPB) 100 ML IV SCH (15:00)
[2018-01-30] MEDS ORDERED: LORA2TAB PO (15:03)
--- NOTE | 2018-01-30 15:16 | PM&R Post Admission Assessment ---
Post Admission Physician Asses Date seen by provider: Jan 30, 2018 Time seen by provider: 14:30 Admisison Dx: (1) Spinal stenosis, lumbar region, with neurogenic claudication The preadmission screen agrees with the post admission assessment that the patient is a good candidate for inpatient rehabilitation. The patient will have a comprehensive program of inpatient rehabilitation with a goal of maximizing level of functional independence prior to discharge home with [facility] and [facility]. The patient will have PT/OT ninety minutes per day, each discipline, five days a week for 10 days for gait, strengthening, conditioning , balance, ADLs, any patient/family/caregiver training as necessary. Speech therapy to do cognitive assessment and treat as indicated. Rehabilitation nursing to assist with bowel, bladder, skin, wound care, medication administration, pain management. Jar Filler to assist with discharge planning, community reentry. SCD's for DVT prophylaxis. She appears to be well motivated to participate in three hours of therapy a day. She should be able to tolerate three hours of therapy a day from a medical and surgical standpoint. She should benefit from the three hours of therapy a day. She has a reasonable discharge plan, reasonable discharge rehabilitation goals and a supportive family. She has various comorbidities that need to be closely monitored with medications and treatments adjusted on a daily basis as needed. These include: DM Aspiration pneumonitis Postop anemia requiring transfusion HTN Prior strokes Obesity chronic pain Anxiety Pancreatitis from common bile duct stone Hx of multiple falls [facility] code 03.9 Etiologic Dx Spinal stenosis lumbar region with neurogenic claudication Barriers to discharge for this patient who had been independent prior to this are for her to be modified independent to supervision for ADLs and mobility skills prior to discharge home with family and HHC, so as to lessen the burden of the caregivers. Risks for this patient include: 1. Fall 2. Fracture 3. DVT 4. Pulmonary embolism 5. Wound infection 6. Skin breakdown 7. Contractures 8. Poorly controlled pain 9. Urinary retention 10. UTI 11. Respiratory infection 12. Aspiration 13. Worsening anemia 14. Poorly controlled DM 15. Poorly controlled DM Estimated Length of Stay: 10 days Prognosis: Rehab prognosis appears good for goal of discharge home with family with HHC modified independent to supervision for ADLs and mobility skills. General: Alert, Oriented X3, Cooperative, No Acute Distress HEENT: Atraumatic, PERRLA, EOMI, Mucous Memb Moist/[place] Neck: Supple, No JVD Lungs: Clear to Auscultation Heart: Regular Rate Abdomen: Normal Bowel Sounds, Soft, No Tenderness, Other (Abdominal corset in place) Extremities: Other (Trace edeam in ankles) Skin: Other (Has ROBIN drain and Indwelling Sanchez catheter to DD) Neuro: Other (Sensation diminished in feet Cognition intact strength 4/5 grossly) MARIO UNGER MD Jan 30, 2018 15:16
--- NOTE | 2018-01-30 15:36 | Occupational Therapy Eval ---
OT Evaluation-General/PLF Medical Diagnosis Admission Date Jan 30, 2018 at 11:40 Medical Diagnosis: s/p L3-S1 laminectomy Onset Date: Jan 27, 2018 Therapy Diagnosis Therapy Diagnosis: Weakness Height/Weight Height (Feet): 5 Height (Inches): 0.00 Weight (Pounds): 165 Weight (Ounces): 8.0 Precautions Precautions/Isolations: Fall Prevention, Standard Precautions, Pressure Ulcer Weight Bear Status Weight Bearing Restriction: Weight Bearing/Tolerated, Extremity, Full Weight Bearing, Non Weight Bearing, Partial Weight Bearing, Touch Toe Bearing Back precautions. Back safety with having brace on when up. Referral Physician: Mj Referral Reason: Activity Tolerance, Self Care, Evaluation/Treatment, Strengthening/ROM Medical History Pertinent Medical History: DM Reviewed History: Yes Social History Home: Single Level Current Living Status: Alone Entry Into Home: Stairs With Railing Steps Into Home: 3 ADL-Prior Level of Function ADL PLOF Comments Pt. states that she was independent with daily tasks. DME/Equipment: Shower DME/Equipment Comments Pt. states that she has a walker but does not use it. States that it was her mother's. Drive Self: Yes OT Current Status Subjective Pt. does not report a pain level. Appearance Pt. in bed. Agrees to work with OT. Mental Status/Objective Patient Orientation: Person Attachments: Drains, Sanchez Catheter, IV Current Glasses/Contacts: Yes Dentures/Partials: Yes Hand Dominance: Right Upper Extremity ROM WFL Upper Extremity Strength NT due to back surgery. ADL-Treatment Functional [place] Measure 0=Not Assessed/NA 4=Minimal Assistance 1=Total Assistance 5=Supervision or Setup 2=Maximal Assistance 6=Modified [place] 3=Moderate Assistance 7=Complete IndependenceIRFPAI Quality Coding Scale 6 Independent with activity with or without an assistive device 5 Patient requires set up or clean up by helper. Patient completes activity by themselves 4 Supervision or touching assist (CGA). [place] provide cues , steadying assist 3 The helper provides less than half the effort to complete the activity 2 The helper provides more than half the effort to complete the activity 1 Dependent. The helper does all the effort to complete an activity 7 Patient refused to complete or attempt activity 9 The patient did not perform the activity before the current illness or injury 88 Not attempted due to Medical conditions or safety concerns Grooming (FIM): 4 (Min assist to comb hair in back.) Oral Hygiene (QC): 5 Bathing (FIM): 3 (Pt. requires assist to wash bilaterla LE and yakov area. Pt. able to wash UE.) Shower/Bathe Self (QC): 3 Upper Body Dressing (FIM): 2 (Max assist to don brace. Pt. does not have other street clothing available.) Upper Body Dressing (QC): 2 Lower Body Dressing (FIM): 1 Lower Body Dressing (QC): 1 On/Off Footwear (QC): 1 Toileting (FIM): 1 (Catheter) Toileting Hygiene (QC): 3 Transfers (B, C, W/C) (FIM): 4 (Min assist supine-sit and sit-stand.) Toilet/Commode Transfer (FIM): 4 Toilet Transfer (QC): 4 Other Treatments Pt. seen this date for co-treat with PT. Pt. fatigued and states, "I move slowly." OT facilitated ADL training while PT focused on transfers, stability, and gait. Ambulated approximately 50 feet x 2 with a rest break in between. Pt. seems motivated to increase overall strength and independence. Education OT Patient Education: Correct positioning, Exercise program, Modified ADL techniques, Progress toward Goal/Update tx plan, Purpose of tx/functional activities, Reviewed precautions, Rehab process, Transfer techniques Teaching Recipient: Patient Teaching Methods: Demonstration, Discussion Response to Teaching: Verbalize Understanding, Return Demonstration OT Short Term Goals Short Term Goals Time Frame: Feb 06, 2018 Eating(FIM): 5 Grooming(FIM): 5 Bathing(FIM): 4 Upper Body Dressing(FIM): 4 Lower Body Dressing(FIM): 4 Toileting(FIM): 4 Transfers (B,C,W/C) (FIM): 4 Toilet/Commode Transfer(FIM): 4 Shower Transfer(FIM): 4 Additional Short Term Goals: 1-Demonstrate ADL Tasks, 2-Verbalize Understanding , 3-ImproveStrength/Lotus 1=Demonstrate adherence to instructed precautions during ADL tasks. 2=Patient will verbalize/demonstrate understanding of assistive devices/ modifications for ADL. 3=Patient will improve strength/tolerance for activity to enable patient to perform ADL's. OT Informatics Manager Goals Snf Goals Time Frame: Feb 20, 2018 Eating (FIM): 6 Eating (QC): 6 Groomin Oral Hygiene (QC): 6 Bathing(FIM): 5 Shower/Bathe Self (QC): 5 Upper Body Dressing(FIM): 6 Upper Body Dressing (QC): 6 Lower Body Dressing(FIM): 6 Lower Body Dressing (QC): 6 On/Off Footwear (QC): 6 Toileting(FIM): 6 Toileting Hygiene (QC): 6 Transfers (B,C,W/C) (FIM): 6 Toilet/Commode Transfer(FIM): 6 Toilet/Commode Transfer (QC): 6 Shower Transfer(FIM): 5 Additional Goals: 1-Demonstrate ADL Tasks, 2-Verbalize Understanding, 3- ImproveStrength/Lotus 1=Demonstrate adherence to instructed precautions during ADL tasks. 2=Patient will verbalize/demonstrate understanding of assistive devices/ modifications for ADL. 3=Patient will improve strength/tolerance for activity to enable patient to perform ADL's. OT Education/Plan Problem List/Assessment Assessment: Decreased Activ Tolerance, Decreased UE Strength, Dependent Transfers, Impaired Bed Mobility, Impaired I ADL's, Impaired Self-Care Skills, Restricted Funct UE ROM Discharge Recommendations Plan/Recommendations: Continue POC Therapy D/C Recommendations: Home w/ Family Support, Occupational Therapy Home Care Equpiment Recommendations-D/C: Bath Chair, Hip Kit Treatment Plan/Plan of Care Treatment,Training & Education: Yes Patient would benefit from OT for education, treatment and training to promote independence in ADL's, mobility, safety and/or upper extremity function for ADL' s. Plan of Care: ADL Retraining, Functional Mobility, UE Funct Exercise/Act Treatment Duration: Feb 20, 2018 Frequency: 5 times per week Estimated Hrs Per Day: 1.5 hours per day Agreement: Yes Rehab Potential: Good Time/GCodes Start Time: 14:25 Stop Time: 15:25 Total Time Billed (hr/min): 60 Billed Treatment Time [id number] 1, EVH x 10 minutes [id number] ADL x 50 minutes co-treat (please see note above for designated roles. ) ANGELO SUAREZ OT Jan 30, 2018 15:36
--- NOTE | 2018-01-30 15:40 | Physical Therapy Daily Note ---
PT Daily Note-Current Subjective Agreeable to PT. Reports she feels weak and wants to get stronger. Mental Status Patient Orientation: Person, Place, Time, Situation Transfers Functional [place] Measure 0=Not Assessed/NA 4=Minimal Assistance 1=Total Assistance 5=Supervision or Setup 2=Maximal Assistance 6=Modified [place] 3=Moderate Assistance 7=Complete IndependenceIRFPAI Quality Coding Scale 6 Independent with activity with or without an assistive device 5 Patient requires set up or clean up by helper. Patient completes activity by themselves 4 Supervision or touching assist (CGA). [place] provide cues , steadying assist 3 The helper provides less than half the effort to complete the activity 2 The helper provides more than half the effort to complete the activity 1 Dependent. The helper does all the effort to complete an activity 7 Patient refused to complete or attempt activity 9 The patient did not perform the activity before the current illness or injury 88 Not attempted due to Medical conditions or safety concerns Transfers (B, C, W/C) (FIM): 4 Roll Left to Right (QC): 4 Supine to/from Sit: 4 Sit to/from Stand: 4 Sit to Lying (QC): 4 Sit to Stand (QC): 4 Pt is min to CGA with all functional transfers. She requires heavy cues for sequencing and task segmentation with cues for hand placement and safety. Multiple sit to stand transfers throughout treatment as ADL"s and self care were addressed by OT. Weight Bearing Right Lower Extremity: Right Weight Bearing/Tolerated Left Lower Extremity: Left Weight Bearing/Tolerated Gait Training Does the Patient Walk?: Yes Gait (FIM): 2 Distance (FIM): 9=225-94 ft Distance: 50 ft x 2 Gait Assistive Device: FWW CGA with gait; slow with decreased step length and slight forward flexed at hips. Skilled cues provided for posture and safety Exercises Supine Ex: Ankle pumps, Quad Set, Glut sets Supine Reps: 15 Seated Therapy Exercises: Ankle pumps, Long arc quads Seated Reps: 15 To facilitate LE strength for functional mobility progression. Treatments Co treat with OT to address functional transfers, LE strengh, dynamic balance in standing as OT addressed self care and ADL's. Pt required the skill of 2 clinicians as she requires cues for self care tasks as well as assist and cues for transfers, balance and safety. Assessment Pt follows cues well. Cooperative. Her balacne and sequencing improved as the treatment progressed. PT Short Term Goals Short Term Goals Time Frame: Feb 06, 2018 Transfers (B,C,W/C) (FIM): 4 Gait (FIM): 2 Gait Distance Comment: 50' Gait Level of Assist: 4 Gait Assistive Device: FWW PT Care Home Goals Document Design Specialist Goals PT Document Design Specialist Goals Time Frame: Feb 20, 2018 Transfers (B,C,W/C) (FIM): 5 Sit to Lying (QC): 4 Lying-Sitting on Side/Bed(QC): 4 Sit to Stand (QC): 4 Rollin Roll Left to Right (QC): 4 Chair/Ocy-qy-Hvmhi Xfer(QC): 4 Car Transfer (QC): 4 Gait (FIM): 5 Distance: 150' Walk 10 feet (QC): 4 Walk 10ft-Uneven Surface(QC): 4 Walk 50ft with 2 Turns (QC): 4 Walk 150 ft (QC): 4 Gait Level of Assist: 5 Gait Assistive Device: FWW Stairs (FIM): 2 # of Steps: 4 1 Step (curb) (QC): 4 4 Steps (QC): 4 12 Steps (QC): 4 Stairs Level Of Assist: 5 PT Plan Problem List Problem List: Activity Tolerance, Functional Strength, Safety, Balance, Gait, Transfer, Bed Mobility Treatment/Plan Treatment Plan: Continue Plan of Care Treatment Plan: Bed Mobility, Concurrent Therapy, Education, Functional Activity Lotus, Functional Strength, Group Therapy, Gait, Safety, Therapeutic Exercise, Transfers Treatment Duration: Feb 20, 2018 Frequency: At least 5 of 7 days/Wk (IRF) Estimated Hrs Per Day: 1.5 hours per day Patient and/or Family Agrees t: Yes Safety Risks/Education Patient Education: Transfer Techniques, Safety Issues Teaching Recipient: Patient Teaching Methods: Discussion Response to Teaching: Reinforcement Needed Discharge Recommendations Therapy D/C Recommendations: Physical Therapy Home Care Time/GCodes Time In: 1435 Time Out: 1525 Total Billed Treatment Time: 50 Total Billed Treatment visit FA 50 DANIELLE GANT PT Jan 30, 2018 15:40
--- NOTE | 2018-01-30 15:54 | ST Cognitive Linguistic Eval ---
Speech Evaluation-General Medical Diagnosis s/p L3-S1 laminectomy Onset Date: Jan 27, 2018 Therapy Diagnosis Therapy Diagnosis: Cognitive Linguistic Skills WNL Precautions Precautions/Isolations: Fall Prevention, Standard Precautions, Pressure Ulcer Referral Referring Physician: Dr. Pedrito Barker Reason for Referral: Evaluation/Treatment Cognitive Evaluation Medical History Pertinent Medical History: DM Current History The patient was recently admitted to [facility] following a L3-S1 laminectomy. Reviewed History: Yes Social History Current Living Status: Alone Speech PLF-Current Status Prior Level of Function The patient denied any prior challenges with speech, language, or cognition. Subjective The patient was laying in bed upon entrance. The patient greeted the clinician and was agreeable to participation in the cognitive evaluation. Prior to the evaluation, a chart review was completed by speech pathology. Per report by social work, the patient's daughter reported high confusion the day prior. Speech therapy discussed the patient with OT and PT following their evaluation. Both disciplines stated the patient did relatively well and large amounts of confusion were not noted. Language Eval: Auditory Comprehends Simple Yes/No Ques: Functional Indent/Objects Multiple Briones: Functional Ident/Pics in Multiple Briones: Functional Follows 1-Step Commands: Functional Follows Complex Directions: Functional Follows General Conversations: Functional Language Eval: Verbal Language Completes Spontaneous Greeting: Functional Produces Auto, Serial Info: Functional Imitates Simple Words/Phrases: Functional Word Finding: Functional (The patient was able to name 12 animals in a time span of one minute (WNL=11)) Requests Basic Needs: Functional States Basic Personal Info: Functional Expresses Complex Ideas: Functional Language Evaluation: Reading Comprehends Single Nouns: Functional Follows Simple Written Direct: Functional Comprehends Multiple Sentences: Functional Cognitive Patient Orientation The patient was independently oriented to self, location, month, and year. Objective Cognitive Domain Attention: WNL Memory: Mild Problem Solving: Functional Objective Impression The patient demonstrated cognitive linguistic skills grossly within normal limits and appropriate for completion of ADL's. While minimal to mild deficits may be intermittently present with memory, the patient functionally presented appropriate to complete therapy skills and tasks. No overt confusion was noted and the patient denied it's presence on multiple occasions. Communication/Social Cognition Comprehension: 6 (Glasses for reading.) Expression: 7 Social Interaction: 6 Problem Solvin Memory: 6 Speech Patient Assess Expression of Ideas/Wants: Expression (4) Understanding Verbal Content: Understands (4) Brief Interview-Mental Status: Yes Repetition of Three Words: Three (3) Temporal Orientation: Year: Correct (3) Temporal Orientation: Month: Accurate within 5 days(2) Temporal Orientation: Day: Incorrect or No Answer(0) Recall : Wear to say "Sock": Yes,after cueing (1) Recall : Color: No, could not recall (0) Recall : Bed: No, could not recall (0) Speech-Plan Treatment Plan Speech Therapy Treatment Plan: Discontinue ST No ST warranted. Frequency: Modified Program (IRF) (No ST warranted.) Estimated Hrs Per Day: Other (No ST warranted.) Rehab Potential: Good Safety Risks/Education Teaching Recipient: Patient Teaching Methods: Discussion Response to Teaching: Verbalize Understanding Education Topics Provided: Results, Recommendations, Plan of Care Time Speech Therapy Time In: 15:26 Speech Therapy Time Out: 15:46 Total Billed Time: 20 Billed Treatment Time 1, DERICK SINGH Jan 30, 2018 15:54
[2018-01-30 16:00] VITALS: BP 107/71
[2018-01-30] MEDS: HYDROcodone/APAP 5 MG/325 MG (LORTAB) TAB PO PRN ×2 (16:05→23:02)
--- NOTE | 2018-01-30 16:11 | HISTORY AND PHYSICAL ---
DATE OF SERVICE: 01/30/2018 CHIEF COMPLAINT: Difficulty with walking. HISTORY OF PRESENT ILLNESS: The patient is a 77-year-old female who has been independent, but having increasing low back pain with radiculopathy who was admitted to [facility] on 01/27/2018 after outpatient assessment in follow up by Dr. Kennedy, ortho spine. She was noted to have severe neurogenic claudication, which compromised her quality of life. She has not responded to any conservative treatment and wished to proceed with surgical intervention. On 01/27/2018, the patient underwent bilateral laminectomies with facetectomies and foraminotomies L3-4, L4-5, L5-S1 and transforaminal lumbar interbody fusion L5-S1 with application of titanium cage L5-S1 posterior spinal instrumentation L3-4, L4-5, L5-S1 posterior spinal fusion L3-L4, L4-L5, L5-S1 with use of human allograft for spine and use of local bone autograft and repair of durotomy. The patient was started on therapies, felt to be appropriate for inpatient rehabilitation. She was followed by Dr. Florentino as well from [facility]. A chest x-ray revealed infiltrate suspicious for aspiration pneumonitis versus aspiration pneumonia. UA was also done, but urine culture showed no growth. The patient was started on IV antibiotics, but then switched over to Augmentin for a 7-day course. The patient is now referred to inpatient rehabilitation unit. The patient requires assistance for ADLs and mobility skills. She has indwelling Sanchez catheter for bladder management postoperatively and has a lumbar corset for support, postoperatively.She is Min assist for grooming and max assist for UB dressing and dependent for lower body dressing.She is min assist for Toilet transfers. PAST MEDICAL HISTORY: Type 2 diabetes mellitus, hypertension, lumbar spinal stenosis with neurogenic claudication, radiculopathy, heart murmur with severe aortic stenosis, moderate to severe concentric left ventricular hypertrophy. The patient is on SCDs for DVT prophylaxis, postoperatively. PAST SURGICAL HISTORY: As per above. Cholecystectomy with common bile duct obstruction, ERCP at [place], , knee and shoulder surgery. ALLERGIES: TAPE, ASPIRIN, PEPCID, HYDROMORPHONE and TRIAZOLAM. FAMILY HISTORY: Noncontributory. Diabetes, hypertension and [place]. SOCIAL HISTORY: She lives in [place], [place]. She is a and lives alone. She has supportive family nearby; however, she was born in [place]. REVIEW OF SYSTEMS: Ten point review of systems significant for back pain and weakness. MEDICATIONS: Lisinopril 5 mg p.o. daily, multivitamins with minerals one tablet p.o. daily, Colace 100 mg p.o. b.i.d., Lyrica 50 mg p.o. b.i.d., simvastatin 10 mg p.o. at bedtime, metformin 500 mg p.o. at bedtime, Augmentin 875 mg p.o. b.i.d. with meals, NovoLog insulin sliding scale regimen A, detemir insulin 40 units subcu q. afternoon, Tylenol 650 mg p.o. q.6 hours p.r.n. mild pain, hydrocodone APAP 5/325 1-2 tablets p.o. p.r.n. moderate pain, Restoril 30 mg p.o. at bedtime p.r.n. insomnia and Xanax 2 mg p.o. q.6 hours p.r.n. muscle spasm. PHYSICAL EXAMINATION: GENERAL: Significant for somewhat obese female sitting up in chair in no acute distress. VITAL SIGNS: She is afebrile, O2 sat 97% on room air. HEENT: Vision, speech, hearing grossly intact. No oral lesion is noted. NECK: Supple without mass. HEART: Regular rhythm. The patient has a holosystolic heart murmur radiating to the carotids. CHEST: Clear. ABDOMEN: Soft, nontender, bowel sounds present. GENITOURINARY: Indwelling Sanchez catheter to dependent drainage. EXTREMITIES: Trace edema both ankles, no calf tenderness. MUSCULOSKELETAL: The patient has 4/5 strength grossly both lower extremities, active range of motion somewhat limited due to pain and guarding. NEUROLOGIC: Sensation is mildly impaired to touch at both ankles using both feet. She has 4/5 strength both upper limbs with functional active range of motion. She is mod assist for transfers and min assist for gait with front wheel walker. Cognitively, she is grossly intact. IMPRESSION: 1. Ambulatory dysfunction secondary to lumbar spinal stenosis with associated lumbar radiculopathy and neurogenic claudication, status post above procedures as outlined in HPIDr. Kennedy 01/27/2018. 2. Postop atelectasis. Wean from O2 on respiratory treatments. 3. Diabetes mellitus type 2, controlled with medication. 4. History of multiple falls. 5. Previous cerebrovascular accident seen on CT. 6. History of previous back fracture. 7. Obesity. 8. Chronic back pain. 9. Anxiety. 10. Pancreatitis from common bile duct stone. 11. Reported history of hepatitis C and hepatitis A. PLAN: The patient will have a comprehensive program of inpatient rehabilitation with ths goal of maximizing level of functional independence prior to discharge home with home health care and family. The patient will be seen 5 days a week, 90 minutes per day each discipline by PT, OT. Please see post-admission physician evaluation, which is a separate document for details of plan of care. Speech therapy to do cognitive assessment and treat as indicated. Rehabilitation nursing to assist with bowel, bladder,Sanchez catheter, skin, wound care, medication administration and pain management. Discontinue Sanchez in a.m. Monitor for urinary retention. Follow up with Dr. Florentino and Brent as per their schedule. shared services and outsourcing manager to assist with discharge planning, community reentry. Recheck labs. ADDITIONAL DIAGNOSIS: Postop anemia requiring transfusion one unit packed red blood cells. ESTIMATED LENGTH OF STAY: 10 days. PROGNOSIS: Rehab progress appears good for goal of discharging home with family and home health care, modified independent to supervision for ADLs and mobility skills. DIET: Carb consistent Accu-Cheks q.i.d. a.c. and at bedtime CODE STATUS: Full code. Job ID: [id number] DocumentID: [id number] Dictated Date: 01/30/2018 15:07:12 Security Vehicle Patrol Officer Date: 01/30/2018 16:10:42 Dictated By: MARIO UNGER MD [facility]
[2018-01-30] MEDS: AUGMENTIN 875 MG TAB (AMOXICILLIN/CLAVULANATE) PO SCH (16:43)
[2018-01-30] MEDS: inSUlin ASPART (NovoLOG) 1 UNIT/0.01 ML (CHARGE PER UNIT) SC SCH ×2 (16:44→20:48)
[2018-01-30] MEDS: inSUlin DETERMIR 1 UNIT/0.01 ML (LEVEMIR) CHARGE PER UNIT SQ SCH (16:46)
[2018-01-30] MEDS: metFORMIN XR 500 MG (GLUCOPHAGE XR) TAB PO SCH (20:48)
[2018-01-30] MEDS: DOCUSATE SODIUM 100 MG (COLACE) CAP PO SCH (20:48)
[2018-01-30] MEDS: SIMvastatin 10 MG (ZOCOR) TAB PO SCH (20:48)
[2018-01-30] MEDS: PREGABALIN 50 MG (LYRICA) CAP PO SCH (20:48)
[2018-01-31 05:47] VITALS: BP 141/82
[2018-01-31] MEDS: inSUlin ASPART (NovoLOG) 1 UNIT/0.01 ML (CHARGE PER UNIT) SC SCH ×4 (05:52→20:56)
[2018-01-31] MEDS: AUGMENTIN 875 MG TAB (AMOXICILLIN/CLAVULANATE) PO SCH ×2 (06:15→16:41)
[2018-01-31] MEDS: MULTIVIT W/MINERALS TAB (THERAGRAN M) PO SCH (06:15)
[2018-01-31] MEDS: lisINopril 5 MG (PRINIVIL) TABLET PO SCH (07:41)
[2018-01-31] MEDS: HYDROcodone/APAP 5 MG/325 MG (LORTAB) TAB PO PRN ×4 (07:41→22:53)
[2018-01-31] MEDS: PREGABALIN 50 MG (LYRICA) CAP PO SCH ×2 (07:41→20:30)
[2018-01-31] MEDS: DOCUSATE SODIUM 100 MG (COLACE) CAP PO SCH ×2 (07:41→20:31)
--- NOTE | 2018-01-31 08:42 | PM & R (SOAP) Progress Note ---
Subjective This was a face to face visit with the patient. Date Seen by Provider: Jan 31, 2018 Time Seen by Provider: 07:45 Subjective/Events-last exam Patient was seen in her room this AM Patient min assist for gait with walker Mod assist for transfers reports pain in back at 7/10 requesting pain med Discussed with lock expert of Systems Musculoskeletal: back pain Objective Physician Exam Last Set of Vital Signs Vital Signs Date Time Temp Pulse Resp B/P (MAP) Pulse Ox O2 Delivery O2 Flow Rate FiO2 01/31/18 07:41 98.8 01/31/18 05:47 96 17 141/82 (101) 96 Room Air Capillary Refill : I&O Intake and Output 01/31/18 00:00 Intake Total 200 ml Output Total 320 ml Balance -120 ml Intake Oral 200 ml Output Urine Total 300 ml Drainage Total 20 ml Daily Weight Change No General: Alert, Oriented X3, Cooperative, No Acute Distress HEENT: Atraumatic, PERRLA, EOMI, Mucous Memb Moist/[place] Neck: Supple, No JVD Lungs: Clear to Auscultation Heart: Regular Rate Abdomen: Normal Bowel Sounds, Soft, No Tenderness, Other (Abdominal corset in place) Extremities: Other (Trace edeam in ankles) Skin: Other (Has ROBIN drain and Indwelling Sanchez catheter to DD) Neuro: Other (Sensation diminished in feet Cognition intact strength 4/5 grossly) Results Lab Data Laboratory Tests 01/30/18 14:10: Hemoglobin 7.8#L, Hematocrit 23L 01/30/18 16:03: Glucometer 220H 01/30/18 20:19: Glucometer 266H 01/31/18 05:11: Glucometer 118H Assessment/Plan Assessment and Plan Lumbar spinal stenosis with radiculopathy and neurogenic claudication improved s /p decompressive surgery as per above Postop atelectasis on Augmentin as prophylaxis Postop anemia s/p transfusion improving DM2 onmeds Indwelling Sanchez catheter-TOV soon Hx of multiple falls Previous cva seen on CT Hx of previous back surgery Obesity Chronic back pain Anxiety Pancreatitis from common bile duct stone Reported hx of HEP C and Hep A Plan Coninue PT/OT Adjusting well to unit F/U with PCP Monitor Robin drains and incision site D/C Sanchez catheter soon with TOV Monitor labs and accuchecks and adjust meds as needed ST has assessed and found patient to be cognitively intact-They have signed off (1) Spinal stenosis, lumbar region, with neurogenic claudication Co-Morbidities that are continuing to impact the rehab process: (include details ) MARIO UNGER MD Jan 31, 2018 08:42
--- NOTE | 2018-01-31 08:48 | Individualized Plan of Care ---
Individualized Plan of Care Rehab Nursing IPOC Order Admission Date Jan 30, 2018 at 11:40 Current Orders Orders Pt Evaluate/Treat Request (01/30/18 11:22) Request Ot Evaluate & Treat (01/30/18 11:22) Request For Cognitive Services (01/30/18 11:22) Code/Resuscitation (01/30/18 12:47) Precautions (Aru) (01/30/18 12:47) Admission Order(Inpt,Obs,Sdc) (01/30/18 13:42) Vital Signs: Routine (Order) 08,16,00 (01/30/18 13:42) Section Chief-Inpt Rehab Con (01/30/18 13:42) Rehab Nursing Orders-Ipoc (01/30/18 13:42) Cho 60g/M 1snack (16-2000 Morgan) (01/30/18 Dinner) Turn And Reposition Q2HR (01/30/18 13:42) Intake & Output 06,14,22 (01/30/18 13:42) Weekly Weight (Lbs) WEEK (01/30/18 13:42) Accucheck Achs ACHS (01/30/18 13:48) Incentive Spirometry (Nursing) Q2H (01/30/18 13:48) Sequential Compression Device 08,20 (01/30/18 13:48) Turn, Cough, And Deep Breathe (01/30/18 13:48) Weight Bearing Status (01/30/18 13:48) Acetaminophen Tablet/Caplet (Tylenol T (01/30/18 14:00) Ampicillin/Sulbactam Injection (Unasyn 1 (01/30/18 15:00) Bisacodyl Tablet (Dulcolax Tablet) (01/30/18 14:00) Docusate Sodium Capsule (Colace Capsule) (01/30/18 21:00) Hydrocodone/Apap 5/325 Tablet (Lortab 5 (01/30/18 14:00) Ns Iv 1000 Ml (Sodium Chloride 0.9%) (01/30/18 14:00) Pregabalin Capsule (Lyrica Capsule) (01/30/18 21:00) Simvastatin Tablet (Zocor Tablet) (01/30/18 21:00) Temazepam Capsule (Restoril Capsule) (01/30/18 14:00) Therapeutic Multivitamin Tab (Vitamins, (01/31/18 07:00) Insulin Aspart (Novolog) (Novolog (Charg (01/30/18 16:00) Insulin Determir (Per Unit) (Levemir (Pe (01/30/18 16:00) Lisinopril Tablet (Zestril Tablet) (01/31/18 09:00) Metformin Xr Tablet (Glucophage Xr Table (01/30/18 21:00) Tizanidine Tablet (Zanaflex Tablet) (01/30/18 14:00) Consult Physician (01/30/18 13:48) Incentive Spirometry Initial (01/30/18 13:48) Hemoglobin And Hematocrit (01/30/18 14:15) Patient Visit (01/30/18 ) Pt Eval High Complexity (01/30/18 ) Gait Training, Ea 15 Min (01/30/18 ) Functional Activities, Ea 15 (01/30/18 ) Amoxicillin/Clavulanate Tablet (Augmenti (01/30/18 17:00) Patient Visit (01/30/18 ) Functional Activities, Ea 15 (01/30/18 ) Patient Visit (01/30/18 ) Speech Sound Lang Comp (01/30/18 ) Physical Therapy Oder (01/30/18 16:34) Rehab Nursing Orders: Ongoing Assess. of Cognitive Status, Ongoing Assess. of Function Status, Disease Management & Educaiton, DVT Prophylaxis, Fall Prevention, Fluid/Electrolyte/Nutrition Mgmt, Infection Prevention, Medication Management & Education, Management of Risks & Complications, Management of Skin Intergrity, Nutrition Management, Pain Management, Patient/Family Support Other Nursing Orders: Monitor for postop constipation D/C Sanchez and have TOV/ Monitor for urinary PT IPOC Problem List: Activity Tolerance, Functional Strength, Safety, Balance, Gait, Transfer, Bed Mobility Treatment Plan: Continue Plan of Care Bed Mobility, Concurrent Therapy, Education, Functional Activity Lotus, Functional Strength, Group Therapy, Gait, Safety, Therapeutic Exercise, Transfers Treatment Duration: Feb 20, 2018 Frequency: At least 5 of 7 days/Wk (IRF) Estimated Hrs Per Day: 1.5 hours per day OT IPOC Problems: Decreased Activ Tolerance, Decreased UE Strength, Dependent Transfers , Impaired Bed Mobility, Impaired I ADL's, Impaired Self-Care Skills, Restricted Funct UE ROM OT Treatment, Training and Edu: Yes Plan of Care: ADL Retraining, Functional Mobility, UE Funct Exercise/Act Treatment Duration: Feb 20, 2018 Frequency: 5 times per week Estimated Hrs Per Day: 1.[address] IPOC Speech Therapy Treatment Plan: Discontinue ST Treatment Duration: Jan 31, 2018 Frequency: Modified Program (IRF) (No ST warranted.) Estimated Hrs Per Day: Other (No ST warranted.) Section Chief/Case Mgmt Section Chief/Case Managemen: Discharge Planning, Patient/Family Counseling Dietitian/Certified Low Vision Therapist Dietitian/Certified Low Vision Therapist to monitor nutritional status and make changes and/or recommendations as needed and work with speech pathology on dietary upgrades as the occur. Physician IPOC Medical Issues being managed closely and that require the 24 hour availability of a physician: Postop atelectasis Postop anemia DM2 Obesity Chronic back pain Anxiety Postop Sanchez catheter Postop ROBIN drains Pain management [facility] code 03.9 Etiologic DX Spinal stenosis Medical Issues: Bowel/Bladder Function, DVT Prophylaxis, Falls Precautions, Fluid/Electrolyte/Nutrition Balance, Infection Protection, Pain Management, Weight Bearing Precautions, Wound Care, Other (List) (as per above) Brief Synthesis of Preadmission Screen, Post-Admission Evaluation, and Therapy Evaluations: 77 yo female who had been Independent but having Increasing low back pain with radiculopathy and neurogenic claudication who had corrective surgery with orthospine.Has Sanchez catheter post op and required transfusion PRBCs for post op anmeia Comorbidities as per above Medical Prognosis: Good Anticipated Length of Stay: 02-20-18 Modified Independent to supervison for adls and mobility skills Anticipated d/c Destination: Home with family and [facility] MARIO UNGER MD Jan 31, 2018 08:47
--- NOTE | 2018-01-31 09:42 | Physical Therapy Daily Note ---
PT Daily Note-Current Subjective Pt. agrees to Rx. Still in bed and states her pain is 5/10, after up moving escalates to 8/10. Pt. states she wants to work and do all she can to improve. States her goal is to go home. Pain Numeric Pain Scale: 8 Location: Medial Location Body Site: Back Pain Description: Throbbing Appearance pale face Mental Status Patient Orientation: Person, Place, Time, Situation Attachments: Drains, Sanchez Catheter, Other-See Comments (bqack brace, max assist to leona) Transfers Functional [place] Measure 0=Not Assessed/NA 4=Minimal Assistance 1=Total Assistance 5=Supervision or Setup 2=Maximal Assistance 6=Modified [place] 3=Moderate Assistance 7=Complete IndependenceIRFPAI Quality Coding Scale 6 Independent with activity with or without an assistive device 5 Patient requires set up or clean up by helper. Patient completes activity by themselves 4 Supervision or touching assist (CGA). [place] provide cues , steadying assist 3 The helper provides less than half the effort to complete the activity 2 The helper provides more than half the effort to complete the activity 1 Dependent. The helper does all the effort to complete an activity 7 Patient refused to complete or attempt activity 9 The patient did not perform the activity before the current illness or injury 88 Not attempted due to Medical conditions or safety concerns Transfers (B, C, W/C) (FIM): 3 Scootin Rollin Supine to/from Sit: 3 Sit to/from Stand: 4 Weight Bearing Right Lower Extremity: Right Weight Bearing/Tolerated Left Lower Extremity: Left Weight Bearing/Tolerated Gait Training Does the Patient Walk?: Yes Gait (FIM): 1 Distance (FIM): 1=up to 49 ft (20ftx3,10ftx1) Gait Level of Assist: 4 Gait Persons Needed: 1 Gait Assistive Device: FWW w/c to follow close behind, gait very slow, flexed slightly over FWW, heavy weight bearing on FWW, Wheelchair Training Does the Pt Use a Wheelchair?: Yes Wheelchair (FIM): 1 Wheelchair Distance: 1=up to 49 ft (5ft x 2) Wheelchair Level of Assist: 3 Type of Wheelchair: Manual brakes indep Exercises Supine Ex: Ankle pumps, Quad Set, Rolling, Glut sets, Heel Slides, Short Arc Quads, Scooting, Hip abd/add Supine Reps: 12 (x4) Seated Therapy Exercises: Ankle pumps, Sit to stand, Long arc quads, Hip abd/ add Seated Reps: 12 Treatments rolling in bed as well as instructing pt. in use of recliner and positioning herself for comfort and mobility Assessment Current Status: Good Progress n and fatigue limit Rx. pain at 8/10, hgb 7.8 PT Short Term Goals Short Term Goals Time Frame: Feb 06, 2018 Transfers (B,C,W/C) (FIM): 4 Gait (FIM): 2 Gait Distance Comment: 50' Gait Level of Assist: 4 Gait Assistive Device: FWW PT Features Reporter Goals Features Reporter Goals PT Features Reporter Goals Time Frame: Feb 20, 2018 Transfers (B,C,W/C) (FIM): 5 Sit to Lying (QC): 4 Lying-Sitting on Side/Bed(QC): 4 Sit to Stand (QC): 4 Rollin Roll Left to Right (QC): 4 Chair/Ycp-hh-Gksvc Xfer(QC): 4 Car Transfer (QC): 4 Gait (FIM): 5 Distance: 150' Walk 10 feet (QC): 4 Walk 10ft-Uneven Surface(QC): 4 Walk 50ft with 2 Turns (QC): 4 Walk 150 ft (QC): 4 Gait Level of Assist: 5 Gait Assistive Device: FWW Stairs (FIM): 2 # of Steps: 4 1 Step (curb) (QC): 4 4 Steps (QC): 4 12 Steps (QC): 4 Stairs Level Of Assist: 5 PT Plan Treatment/Plan Treatment Plan: Continue Plan of Care Treatment Plan: Bed Mobility, Concurrent Therapy, Education, Functional Activity Lotus, Functional Strength, Group Therapy, Gait, Safety, Therapeutic Exercise, Transfers Treatment Duration: Feb 20, 2018 Frequency: At least 5 of 7 days/Wk (IRF) Estimated Hrs Per Day: 1.5 hours per day Patient and/or Family Agrees t: Yes Safety Risks/Education Patient Education: Gait Training, Transfer Techniques, Correct Positioning, Disease Process, Safety Issues Teaching Recipient: Patient Teaching Methods: Demonstration, Discussion Response to Teaching: Verbalize Understanding, Return Demonstration, Reinforcement Needed Time/GCodes Time In: 815 Time Out: 945 Total Billed Treatment Time: 90 Total Billed Treatment 1,FA35m,GT25m,EX30m G Codes Necessary: No PRETTY CRUZ DEPUTY SHERIFF CUSTODY Jan 31, 2018 09:42
--- NOTE | 2018-01-31 11:00 | Consultation (CHS) ---
HPI History of Present Illness: 77 yo female admitted to inpatient rehab after lumbar surgery complicated by aspiration pneumonia, delirium and postoperative anemia, s/p one unit of PRBCs on 01/30. Today she states she is doing well and denies concerns. She has been afebrile and stable on room air. Date seen by provider: Jan 31, 2018 Time Seen by Provider: 09:42 Attending Physician Pedrito Barker MD [facility] Consult Date of Admission Jan 30, 2018 at 11:40 am Home Medications Home Medications Reviewed patient Home Medication Reconciliation performed by pharmacy medication reconciliations isotope technician and/or nursing. Patients Allergies have been reviewed. Allergies Coded Allergies: famotidine (Verified Allergy, Severe, HAIR LOSS, 01/04/17) NOTIFIED ON 01/02/17 TO MEDICAL RECORDS aspirin (Unverified Allergy, Unknown, 11/23/16) hydromorphone (Unverified Allergy, Unknown, 11/23/16) triazolam (Unverified Allergy, Unknown, 11/23/16) Uncoded Allergies: TAPE (Allergy, Mild, RASH, 11/23/16) [facility] Hx Patient Social History Alcohol Use: Denies Use Recreational Drug Use: No 2nd Hand Smoke Exposure: Yes Recent Foreign Travel: No Contact w/other who traveled: No Recent Hopitalizations: No Recent Infectious Disease Expo: No Physical Abuse Screen: No Sexual Abuse: No Immunizations Up To Date Tetanus Booster (TDap): Unknown Date of Pneumonia Vaccine: Jun 12, 2014 Date of Influenza Vaccine: May 21, 2016 Past Medical History Past Medical History 1. Multiple Falls 2. History of "syncopal episodes" pt. reports increase in episodes when increase in her narcotics 3. Diabetes Mellitus II 4. Hypertension 5. Previous CVA's seen on CT 6. History of previous back fracture with possible kyphoplasty at L2 7. Obesity 8. Chronic pain 9. Anxiety 10. Pancreatitis from common bile duct stone 11. Reported history of hepatitis C and hepatitis A 12. Small subdural hematoma after fall 01/2018 Past Surgical History 1. Cholecystectomy with common bile duct obstruction- ERCP in [place] 2. 3. Knee and Shoulder surgery 4. Lumbar surgery Family Medical History Significant Family History: CAD Over 55 Years Old, Diabetes, Hypertension Family History: Arthritis G8 SISTER Cardiovascular disease 19 MOTHER Diabetes mellitus 19 MOTHER G8 BROTHER Hypertension 19 MOTHER G8 BROTHER G8 BROTHER Myocardial infarction 19 MOTHER G8 BROTHER No Family History of: AIDS Abdominal aortic aneurysm Garden's disease Alcoholism Alzheimer's disease Aphasia Asthma Cancer of mouth Cataracts Colon cancer Completed stroke Congenital disease Congenital heart disease Coronary thrombosis Cystic fibrosis Deafness or hearing loss Dementia Drug abuse Dysphasia Fibrocystic disease of breast Gastroenteritis Glaucoma Headache disorder Hypercholesterolemia Infertility Kidney disease Neoplasm Not obtainable due to adoption Osteoporosis Parkinson's disease Prostate cancer Psychosocial problem Respiratory disorder Seizure disorder Severe allergy Thyroid disease Tuberculosis Visual disorder Review of Systems ([facility]) Constitutional: no symptoms reported EENTM: no symptoms reported Respiratory: No short of breath Cardiovascular: no symptoms reported Gastrointestinal: no symptoms reported Genitourinary: no symptoms reported Musculoskeletal: back pain Skin: no symptoms reported Psychiatric/Neurological: No Symptoms Reported Reviewed Test Results Reviewed Test Results Lab Laboratory Tests Test 01/30/18 14:10 01/30/18 16:03 01/30/18 20:19 01/31/18 05:11 Range/Units Hemoglobin 7.8 #L 11.5-16.0 G/DL Hematocrit 23 L 35-52 % Glucometer 220 H 266 H 118 H 70-110 MG/DL Physical Exam-([facility]) Physical Exam Vital Signs VS - Last 72 Hours, by Label 01/30/18 01/30/18 01/30/18 01/31/18 12:42 16:00 21:43 05:47 Temp 98.4 98.8 Pulse 88 96 Resp 14 17 B/P (MAP) 107/71 (83) 141/82 (101) Pulse Ox 97 97 97 96 O2 Delivery Room Air Room Air Room Air Room Air 01/31/18 01/31/18 01/31/18 07:41 08:00 08:50 Temp 98.8 98.8 Pulse Ox 97 O2 Delivery Room Air Capillary Refill : General Appearance: WD/WN, no apparent distress Respiratory: lungs clear, normal breath sounds Cardiovascular: regular rate, rhythm, systolic murmur Gastrointestinal: normal bowel sounds, non tender Neurologic/Psychiatric: alert, oriented x 3 Skin: normal color, warm/dry Assessment/Plan Assessment/Plan Assessment & Plan s/p lumbar surgery- management per Dr. Kennedy, anticipate d/c to rehab tomorrow if respiratory and mental status appropriate 01/30- transferred to IRF Postoperative anemia- hgb 6.2 on 01/30, transfused one unit 01/30 with Hgb above 7 after. Repeat CBC in the am 02/01 Possible aspiration- aspiration pneumonitis vs aspiration pneumonia. Fever present, but present before suspected aspiration, however given infiltrate on x- ray will start ampicillin-sulbactam. Swallow eval when alert. Stable on 2 lpm supplemental oxygen. 01/30- improved significantly, afebrile. Change to Augmentin for 7 day course Somnolence/confusion- suspect medication induced vs delirium or combination of both. Check UA. Change cyclobenzaprine to tizanidine. On temazepam from home. Simplify pain regimen and try to use lowest dose possible. 01/30 RESOLVED Possible UTI- culture pending, will stop cipro with starting amp/sulbactam and interaction with tizanidine 01/30 No growth DMII- continue insulin and metformin, diabetic diet HTN- intermittently hypotensive currently, monitor. On lisinopril per home- only 5 mg. Heart murmur- echo from clinic records on 01/22/18 with severe aortic stenosis, moderate to severe concentric left ventricle hypertrophy. No acute issues apparent, but she likely needs to see Cardiology as she does not believe she has yet. Clinical Quality Measures DVT/VTE Risk/Contraindication: Risk Factor Score Per Nursin RFS Level Per Nursing on Admit: 4+=Very High AGUSTINA LOPES MD Jan 31, 2018 11:00 am
--- NOTE | 2018-01-31 15:13 | Occupational Ther Daily Note ---
OT Current Status-Daily Note Subjective Pt seen in room, up in recliner, agreeable to OT. Pt reported pain 10/ and nursing notified. "I've been here all morning. I think they've forgotten about me." pt reassured that she was not forgotten and has already had some therapy this morning. Pt educ on use of call light. Appearance Sleepy, a little confused Mental Status/Objective Functional [place] Measure 0=Not Assessed/NA 4=Minimal Assistance 1=Total Assistance 5=Supervision or Setup 2=Maximal Assistance 6=Modified [place] 3=Moderate Assistance 7=Complete [place] ADL-Treatment She was stretched out in recliner but said she wanted to get into bed "to stretch out". Some discomfort moving to sitting up in recliner. Help needed to take brace off for dressing. Able to get top off and clean shirt on with setup, supervision. Help needed to thread Sanchez through pants leg. She was able to take shoes off with dressing stick and put pants on over feet with a little help , using stick. Min-mod assist to stand with FWW, with help to adjust and don back brace. Unable to put shoes on without help. Brushed teeth and hair with setup and encouragement. ADLs took longer than usual and pt reported pain in low back. Functional [place] Measure 0=Not Assessed/NA 4=Minimal Assistance 1=Total Assistance 5=Supervision or Setup 2=Maximal Assistance 6=Modified [place] 3=Moderate Assistance 7=Complete IndependenceIRFPAI Quality Coding Scale 6 Independent with activity with or without an assistive device 5 Patient requires set up or clean up by helper. Patient completes activity by themselves 4 Supervision or touching assist (CGA). [place] provide cues , steadying assist 3 The helper provides less than half the effort to complete the activity 2 The helper provides more than half the effort to complete the activity 1 Dependent. The helper does all the effort to complete an activity 7 Patient refused to complete or attempt activity 9 The patient did not perform the activity before the current illness or injury 88 Not attempted due to Medical conditions or safety concerns Eating (FIM): 5 (Setup, per patient report. ) Eating (QC): 5 (setup) Grooming (FIM): 5 Upper Body (FIM): 5 (Help with back brace (defined as setup)) Lower Body Dressing (FIM): 3 (Mod assist) Other Treatment Pt has edema dorsum of both hands, worse on L hand, with saline lock. Pt did 20 squeezes and 20 pinches with blue foam licensed esthetician, to help mobilize edema. Pt also worked with red Theraputty (medium resistance) to also mobilize edema. Pt left up in recliner, all needs met. Education OT Patient Education: Exercise program, Modified ADL techniques, Purpose of tx/ functional activities, Safety issues, Transfer techniques Teaching Recipient: Patient Teaching Methods: Demonstration, Discussion Response to Teaching: Verbalize Understanding, Return Demonstration, Reinforcement Needed OT Short Term Goals Short Term Goals Time Frame: Feb 06, 2018 Eating(FIM): 5 Grooming(FIM): 5 Bathing(FIM): 4 Upper Body Dressing(FIM): 4 Lower Body Dressing(FIM): 4 Toileting(FIM): 4 Transfers (B,C,W/C) (FIM): 4 Toilet/Commode Transfer(FIM): 4 Shower Transfer(FIM): 4 Additional Short Term Goals: 1-Demonstrate ADL Tasks, 2-Verbalize Understanding , 3-ImproveStrength/Lotus 1=Demonstrate adherence to instructed precautions during ADL tasks. 2=Patient will verbalize/demonstrate understanding of assistive devices/ modifications for ADL. 3=Patient will improve strength/tolerance for activity to enable patient to perform ADL's. OT Personnel Officer Goals Personnel Officer Goals Time Frame: Feb 20, 2018 Eating (FIM): 6 Eating (QC): 6 Groomin Oral Hygiene (QC): 6 Bathing(FIM): 5 Shower/Bathe Self (QC): 5 Upper Body Dressing(FIM): 6 Upper Body Dressing (QC): 6 Lower Body Dressing(FIM): 6 Lower Body Dressing (QC): 6 On/Off Footwear (QC): 6 Toileting(FIM): 6 Toileting Hygiene (QC): 6 Transfers (B,C,W/C) (FIM): 6 Toilet/Commode Transfer(FIM): 6 Toilet/Commode Transfer (QC): 6 Shower Transfer(FIM): 5 Additional Goals: 1-Demonstrate ADL Tasks, 2-Verbalize Understanding, 3- ImproveStrength/Lotus 1=Demonstrate adherence to instructed precautions during ADL tasks. 2=Patient will verbalize/demonstrate understanding of assistive devices/ modifications for ADL. 3=Patient will improve strength/tolerance for activity to enable patient to perform ADL's. OT Education/Plan Discharge Recommendations Plan/Recommendations: Continue POC Treatment Plan/Plan of Care Patient would benefit from OT for education, treatment and training to promote independence in ADL's, mobility, safety and/or upper extremity function for ADL' s. Plan of Care: ADL Retraining, Functional Mobility, UE Funct Exercise/Act Treatment Duration: Feb 20, 2018 Frequency: 5 times per week Estimated Hrs Per Day: 1.5 hours per day Agreement: Yes Rehab Potential: Good Time/GCodes Start Time: 10:00 Stop Time: 11:00 Total Time Billed (hr/min): 60 Billed Treatment Time visit, 40 minutes ADL, 20 minutes exercise MARLENY MARLEY OT Jan 31, 2018 15:13
--- NOTE | 2018-01-31 15:27 | Occupational Ther Daily Note ---
OT Current Status-Daily Note Subjective Pt seen in room, up in recliner, finishing lunch. Agreeable to OT. Appearance More alert this afternoon Mental Status/Objective Functional [place] Measure 0=Not Assessed/NA 4=Minimal Assistance 1=Total Assistance 5=Supervision or Setup 2=Maximal Assistance 6=Modified [place] 3=Moderate Assistance 7=Complete [place] ADL-Treatment Functional [place] Measure 0=Not Assessed/NA 4=Minimal Assistance 1=Total Assistance 5=Supervision or Setup 2=Maximal Assistance 6=Modified [place] 3=Moderate Assistance 7=Complete IndependenceIRFPAI Quality Coding Scale 6 Independent with activity with or without an assistive device 5 Patient requires set up or clean up by helper. Patient completes activity by themselves 4 Supervision or touching assist (CGA). [place] provide cues , steadying assist 3 The helper provides less than half the effort to complete the activity 2 The helper provides more than half the effort to complete the activity 1 Dependent. The helper does all the effort to complete an activity 7 Patient refused to complete or attempt activity 9 The patient did not perform the activity before the current illness or injury 88 Not attempted due to Medical conditions or safety concerns Other Treatment Pt education on 5 different exercises with yellow theraband (low resistance), working on shoulders and elbows to strengthen arms to help with transfers. She needed occasional skilled assistance to do them correctly and had a little difficulty tracking repetitions. She was able to get up from recliner with min assist and transfer with min assist to edge of bed. She needed help getting back brace off and also a little help getting legs into bed. Pt left up in bed, on her side, 4 rails up, all needs met. Education OT Patient Education: Exercise program, Modified ADL techniques, Purpose of tx/ functional activities, Safety issues, Transfer techniques Teaching Recipient: Patient Teaching Methods: Demonstration, Discussion Response to Teaching: Verbalize Understanding, Return Demonstration, Reinforcement Needed OT Short Term Goals Short Term Goals Time Frame: Feb 06, 2018 Eating(FIM): 5 Grooming(FIM): 5 Bathing(FIM): 4 Upper Body Dressing(FIM): 4 Lower Body Dressing(FIM): 4 Toileting(FIM): 4 Transfers (B,C,W/C) (FIM): 4 Toilet/Commode Transfer(FIM): 4 Shower Transfer(FIM): 4 Additional Short Term Goals: 1-Demonstrate ADL Tasks, 2-Verbalize Understanding , 3-ImproveStrength/Lotus 1=Demonstrate adherence to instructed precautions during ADL tasks. 2=Patient will verbalize/demonstrate understanding of assistive devices/ modifications for ADL. 3=Patient will improve strength/tolerance for activity to enable patient to perform ADL's. OT Chcf Goals Chcf Goals Time Frame: Feb 20, 2018 Eating (FIM): 6 Eating (QC): 6 Groomin Oral Hygiene (QC): 6 Bathing(FIM): 5 Shower/Bathe Self (QC): 5 Upper Body Dressing(FIM): 6 Upper Body Dressing (QC): 6 Lower Body Dressing(FIM): 6 Lower Body Dressing (QC): 6 On/Off Footwear (QC): 6 Toileting(FIM): 6 Toileting Hygiene (QC): 6 Transfers (B,C,W/C) (FIM): 6 Toilet/Commode Transfer(FIM): 6 Toilet/Commode Transfer (QC): 6 Shower Transfer(FIM): 5 Additional Goals: 1-Demonstrate ADL Tasks, 2-Verbalize Understanding, 3- ImproveStrength/Lotus 1=Demonstrate adherence to instructed precautions during ADL tasks. 2=Patient will verbalize/demonstrate understanding of assistive devices/ modifications for ADL. 3=Patient will improve strength/tolerance for activity to enable patient to perform ADL's. OT Education/Plan Discharge Recommendations Plan/Recommendations: Continue POC Treatment Plan/Plan of Care Patient would benefit from OT for education, treatment and training to promote independence in ADL's, mobility, safety and/or upper extremity function for ADL' s. Plan of Care: ADL Retraining, Functional Mobility, UE Funct Exercise/Act Treatment Duration: Feb 20, 2018 Frequency: 5 times per week Estimated Hrs Per Day: 1.5 hours per day Agreement: Yes Rehab Potential: Good Time/GCodes Start Time: 13:07 Stop Time: 13:37 Total Time Billed (hr/min): 30 Billed Treatment Time visit, 20 minutes exercise, 10 minutes functional activity MARLENY MARLEY OT Jan 31, 2018 15:27
[2018-01-31] MEDS: inSUlin DETERMIR 1 UNIT/0.01 ML (LEVEMIR) CHARGE PER UNIT SQ SCH (16:27)
[2018-01-31 17:55] VITALS: BP 83/53
[2018-01-31] MEDS: SIMvastatin 10 MG (ZOCOR) TAB PO SCH (20:31)
[2018-01-31] MEDS: metFORMIN XR 500 MG (GLUCOPHAGE XR) TAB PO SCH (20:31)
[2018-02-01] MEDS: HYDROcodone/APAP 5 MG/325 MG (LORTAB) TAB PO PRN ×5 (03:20→21:37)
[2018-02-01 05:07] VITALS: BP 126/76
[2018-02-01 06:15] LABS: HEMOGLOBIN 7.2 G/DL (11.5-16.0); MEAN PLATELET VOLUME 10.8 FL (7.4-10.4); RED BLOOD COUNT 2.14 10^6/uL (4.35-5.85); RED CELL DISTRIBUTION WIDTH 15.6 % (10.0-14.5); WHITE BLOOD COUNT 3.4 10^3/uL (4.3-11.0)
[2018-02-01] MEDS: inSUlin ASPART (NovoLOG) 1 UNIT/0.01 ML (CHARGE PER UNIT) SC SCH ×4 (06:26→21:00)
[2018-02-01] MEDS: AUGMENTIN 875 MG TAB (AMOXICILLIN/CLAVULANATE) PO SCH ×2 (06:26→16:12)
[2018-02-01] MEDS: MULTIVIT W/MINERALS TAB (THERAGRAN M) PO SCH (06:26)
[2018-02-01] MEDS: DOCUSATE SODIUM 100 MG (COLACE) CAP PO SCH ×2 (08:09→20:59)
[2018-02-01] MEDS: PREGABALIN 50 MG (LYRICA) CAP PO SCH ×2 (08:09→20:59)
[2018-02-01 08:12] VITALS: BP 108/69
[2018-02-01] MEDS: lisINopril 5 MG (PRINIVIL) TABLET PO SCH (08:12)
--- NOTE | 2018-02-01 08:17 | PM & R (SOAP) Progress Note ---
Subjective This was a face to face visit with the patient. Date Seen by Provider: Feb 01, 2018 Time Seen by Provider: 07:50 Subjective/Events-last exam Patient was seen in her room this AM Patient Mod assist for transfers HGB dropped to 7.2 today-will recheck on Saturday02-03-18 see orders Vital signs are stable Patient reports 8/10 pain in low back Review of Systems Musculoskeletal: back pain Objective Physician Exam Last Set of Vital Signs Vital Signs Date Time Temp Pulse Resp B/P (MAP) Pulse Ox O2 Delivery O2 Flow Rate FiO2 02/01/18 05:07 98.8 81 20 126/76 (93) 96 Room Air Capillary Refill : I&O Intake and Output 02/01/18 00:00 Intake Total 1000 ml Output Total 1025 ml Balance -25 ml Intake Oral 1000 ml Output Urine Total 925 ml Drainage Total 100 ml General: Alert, Oriented X3, Cooperative, No Acute Distress HEENT: Atraumatic, PERRLA, EOMI, Mucous Memb Moist/[place] Neck: Supple, No JVD Lungs: Clear to Auscultation Heart: Regular Rate Abdomen: Normal Bowel Sounds, Soft, No Tenderness, Other (Abdominal corset in place) Extremities: Other (Trace edeam in ankles) Skin: Other (Has ROBIN drain and Indwelling Sanchez catheter to DD) Neuro: Other (Sensation diminished in feet Cognition intact strength 4/5 grossly) Results Lab Data Laboratory Tests 01/30/18 14:10: Hemoglobin 7.8#L, Hematocrit 23L 01/30/18 16:03: Glucometer 220H 01/30/18 20:19: Glucometer 266H 01/31/18 05:11: Glucometer 118H 01/31/18 10:59: Glucometer 117H 01/31/18 16:15: Glucometer 117H 01/31/18 20:30: Glucometer 204H 02/01/18 01:26: Glucometer 68L 02/01/18 02:03: Glucometer 81 02/01/18 02:50: Glucometer 102 02/01/18 05:15: Glucometer 97 02/01/18 06:00: White Blood Count 3.4L, Red Blood Count 2.14L, Hemoglobin 7.2L, Hematocrit 22L, Mean Corpuscular Volume 101H, Mean Corpuscular Hemoglobin 34, Mean Corpuscular Hemoglobin Concent 33, Red Cell Distribution Width 15.6H, Platelet Count 113L, Mean Platelet Volume 10.8H Assessment/Plan Assessment and Plan Lumbar spinal stenosis s/p decompressive surgery ortho 4 states Postop Sanchez catheter will d/c on Saturday02-03-18 for TOV Postop anemia will recheck CBC on Saturday02-03-18 and f/u with PCP re further management as needed Postop atelectasis on augmentin of prophylaxis DM controlled Hx of multiple falls 

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
[2018-02-01] MEDS: inSUlin DETERMIR 1 UNIT/0.01 ML (LEVEMIR) CHARGE PER UNIT SQ SCH (16:13)
[2018-02-01 17:36] VITALS: BP 111/70
[2018-02-01] MEDS: SIMvastatin 10 MG (ZOCOR) TAB PO SCH (20:59)
[2018-02-01] MEDS: metFORMIN XR 500 MG (GLUCOPHAGE XR) TAB PO SCH (20:59)
[2018-02-02] MEDS: HYDROcodone/APAP 5 MG/325 MG (LORTAB) TAB PO PRN ×5 (01:36→21:16)
[2018-02-02 05:14] VITALS: BP 128/79
[2018-02-02] MEDS: inSUlin ASPART (NovoLOG) 1 UNIT/0.01 ML (CHARGE PER UNIT) SC SCH ×4 (06:14→21:17)
[2018-02-02] MEDS: MULTIVIT W/MINERALS TAB (THERAGRAN M) PO SCH (06:14)
[2018-02-02] MEDS: AUGMENTIN 875 MG TAB (AMOXICILLIN/CLAVULANATE) PO SCH ×2 (06:14→16:15)
[2018-02-02 06:38] LABS: BASOPHILS % (AUTO) 0 % (0-10); EOSINOPHILS # (AUTO) 0.2 10^3/uL (0.0-0.3); EOSINOPHILS % (AUTO) 7 % (0-10); HEMATOCRIT 24 % (35-52); HEMOGLOBIN 8.4 G/DL (11.5-16.0); LYMPHOCYTES # (AUTO) 0.7 X 10^3 (1.0-4.0); LYMPHOCYTES % (AUTO) 28 % (12-44); MEAN CORPUSCULAR HEMOGLOBIN 35 PG (25-34); MEAN CORPUSCULAR HGB CONC 35 G/DL (32-36); MEAN CORPUSCULAR VOLUME 101 FL (80-99); MEAN PLATELET VOLUME 11.4 FL (7.4-10.4); MONOCYTES # (AUTO) 0.1 X 10^3 (0.0-1.0); MONOCYTES % (AUTO) 4 % (0-12); NEUTROPHILS # (AUTO) 1.6 X 10^3 (1.8-7.8); NEUTROPHILS % (AUTO) 61 % (42-75); PLATELET COUNT 82 10^3/uL (130-400); RED BLOOD COUNT 2.41 10^6/uL (4.35-5.85); WHITE BLOOD COUNT 2.6 10^3/uL (4.3-11.0)
[2018-02-02] MEDS: lisINopril 5 MG (PRINIVIL) TABLET PO SCH (07:48)
[2018-02-02] MEDS: PREGABALIN 50 MG (LYRICA) CAP PO SCH ×2 (07:48→21:16)
[2018-02-02] MEDS: DOCUSATE SODIUM 100 MG (COLACE) CAP PO SCH ×2 (07:49→21:16)
[2018-02-02 08:14] VITALS: BP_SYST 151; BP_SYST 167; BP_DIAS 80; BP_DIAS 81; BP_DIAS 88
--- NOTE | 2018-02-02 08:54 | Progress Note (SOAP) ---
Subjective Subjective/Events-last exam Patient sleeping in bed this afternoon. Has been participating in therapies without difficulty. Orthostatic vital signs done this morning: laying BP 151/80 , HR 82; sitting BP 167/88, HR 99; laying BP 151/81, HR 103. Review of Systems Date Seen by Provider: Feb 02, 2018 Time Seen by Provider: 14:45 General: No Chills, No Night Sweats HEENT: No Dysphasia Pulmonary: No Dyspnea, No Pleuritic Chest Pain Cardiovascular: No: Chest Pain, Lt Headedness Gastrointestinal: No: Vomiting Neurological: No: Confusion, Seizures Objective Exam Last Set of Vital Signs Vital Signs Date Time Temp Pulse Resp B/P (MAP) Pulse Ox O2 Delivery O2 Flow Rate FiO2 02/02/18 08:14 82 151/80 (103) 99 167/88 (114) 103 151/81 (104) 02/02/18 05:14 98.4 20 98 Room Air Capillary Refill : I&O Intake and Output 02/02/18 00:00 Intake Total 1530 ml Output Total 1950 ml Balance -420 ml Intake Oral 1530 ml Output Urine Total 1950 ml Drainage Total 0 ml General: No Acute Distress HEENT: Atraumatic Lungs: Other (even and unlabored) Neuro: Normal Speech, Normal Tone, Cranial Nerves 3-12 NL Psych/Mental Status: Mental Status NL, Mood NL Results/Procedures Lab Laboratory Tests 02/01/18 10:49: Glucometer 94 02/01/18 16:08: Glucometer 202H 02/01/18 20:49: Glucometer 277H 02/02/18 05:29: Glucometer 133H 02/02/18 05:40: White Blood Count 2.6L, Red Blood Count 2.41L, Hemoglobin 8.4L, Hematocrit 24L, Mean Corpuscular Volume 101H, Mean Corpuscular Hemoglobin 35H, Mean Corpuscular Hemoglobin Concent 35, Red Cell Distribution Width 15.0H, Platelet Count 82L, Mean Platelet Volume 11.4H, Neutrophils (%) (Auto) 61, Lymphocytes (%) (Auto) 28 , Monocytes (%) (Auto) 4, Eosinophils (%) (Auto) 7, Basophils (%) (Auto) 0, Neutrophils # (Auto) 1.6L, Lymphocytes # (Auto) 0.7L, Monocytes # (Auto) 0.1, Eosinophils # (Auto) 0.2, Basophils # (Auto) 0.0 Assessment/Plan Assessment/Plan Assessment & Plan s/p lumbar surgery- management per Dr. Kennedy, anticipate d/c to rehab tomorrow if respiratory and mental status appropriate 01/30- transferred to IRF Postoperative anemia- hgb 6.2 on 01/30, transfused one unit 01/30 with Hgb above 7 after. Repeat CBC in the am 02/01. Hgb 7.8 --> 7.2 --> 8.4; type and screen on 02/02. Asymptomatic, although orthostatics positive, as pt had HR elevation from 82 -->103 from laying to standing. Thrombocytopenia - Platelet count 105 during acute stay --> 118 on 02/01, 82 on . Repeat CBC 02/04. Possible aspiration- aspiration pneumonitis vs aspiration pneumonia. Fever present, but present before suspected aspiration, however given infiltrate on x- ray will start ampicillin-sulbactam. Swallow eval when alert. Stable on 2 lpm supplemental oxygen. 01/30- improved significantly, afebrile. Change to Augmentin for 7 day course Somnolence/confusion- suspect medication induced vs delirium or combination of both. Check UA. Change cyclobenzaprine to tizanidine. On temazepam from home. Simplify pain regimen and try to use lowest dose possible. 01/30 RESOLVED Possible UTI- culture pending, will stop cipro with starting amp/sulbactam and interaction with tizanidine 01/30 No growth DMII- continue insulin and metformin, diabetic diet HTN- intermittently hypotensive currently, monitor. On lisinopril per home- only 5 mg. Heart murmur- echo from clinic records on 01/22/18 with severe aortic stenosis, moderate to severe concentric left ventricle hypertrophy. No acute issues apparent, but she likely needs to see Cardiology as she does not believe she has yet. Clinical Quality Measures DVT/VTE Risk/Contraindication: Risk Factor Score Per Nursin RFS Level Per Nursing on Admit: 4+=Very High Copy Copies To 1: [facility]KIET HO DO Feb 02, 2018 08:54
[2018-02-02] MEDS: inSUlin DETERMIR 1 UNIT/0.01 ML (LEVEMIR) CHARGE PER UNIT SQ SCH (16:15)
[2018-02-02] MEDS ORDERED: ONDANSETRON 4 MG (ZOFRAN) ORAL DISSOLVE TAB ONE (16:59)
[2018-02-02] MEDS ORDERED: ONDANSETRON 4 MG (ZOFRAN) ORAL DISSOLVE TAB PO PRN (17:00)
[2018-02-02 17:51] VITALS: BP 152/83
[2018-02-02] MEDS: BISACODYL 5 MG (DULCOLAX) TABLET PO PRN (18:10)
[2018-02-02] MEDS: metFORMIN XR 500 MG (GLUCOPHAGE XR) TAB PO SCH (21:16)
[2018-02-02] MEDS: SIMvastatin 10 MG (ZOCOR) TAB PO SCH (21:21)
[2018-02-03] MEDS: HYDROcodone/APAP 5 MG/325 MG (LORTAB) TAB PO PRN ×4 (01:57→20:54)
[2018-02-03 05:10] VITALS: BP 117/78
[2018-02-03] MEDS: inSUlin ASPART (NovoLOG) 1 UNIT/0.01 ML (CHARGE PER UNIT) SC SCH ×4 (05:27→20:54)
[2018-02-03 06:01] LABS: BASOPHILS % (AUTO) 0 % (0-10); EOSINOPHILS # (AUTO) 0.1 10^3/uL (0.0-0.3); EOSINOPHILS % (AUTO) 2 % (0-10); HEMATOCRIT 25 % (35-52); HEMOGLOBIN 8.2 G/DL (11.5-16.0); LYMPHOCYTES # (AUTO) 0.7 X 10^3 (1.0-4.0); LYMPHOCYTES % (AUTO) 26 % (12-44); MEAN CORPUSCULAR HGB CONC 33 G/DL (32-36); MEAN CORPUSCULAR VOLUME 100 FL (80-99); MONOCYTES # (AUTO) 0.1 X 10^3 (0.0-1.0); MONOCYTES % (AUTO) 4 % (0-12); NEUTROPHILS # (AUTO) 1.7 X 10^3 (1.8-7.8); NEUTROPHILS % (AUTO) 67 % (42-75); PLATELET COUNT 169 10^3/uL (130-400); RED BLOOD COUNT 2.45 10^6/uL (4.35-5.85); RED CELL DISTRIBUTION WIDTH 14.8 % (10.0-14.5); WHITE BLOOD COUNT 2.5 10^3/uL (4.3-11.0)
[2018-02-03 06:02] LABS: MEAN CORPUSCULAR HEMOGLOBIN 33 PG (25-34)
[2018-02-03] MEDS: MULTIVIT W/MINERALS TAB (THERAGRAN M) PO SCH (06:03)
[2018-02-03] MEDS: AUGMENTIN 875 MG TAB (AMOXICILLIN/CLAVULANATE) PO SCH ×2 (06:03→17:43)
[2018-02-03] MEDS: PREGABALIN 50 MG (LYRICA) CAP PO SCH ×2 (08:28→20:57)
[2018-02-03] MEDS: lisINopril 5 MG (PRINIVIL) TABLET PO SCH (08:28)
[2018-02-03] MEDS: DOCUSATE SODIUM 100 MG (COLACE) CAP PO SCH ×2 (08:28→20:54)
--- NOTE | 2018-02-03 10:12 | Physical Therapy Daily Note ---
PT Daily Note-Current Subjective Pt. agrees to Rx, feels she is making progress, claims she has a very high bed at home and will have trouble getting in and out of it and her kids plan to get her a hospital bed Pain Numeric Pain Scale: 2 Location: Medial Location Body Site: Back Pain Description: Ache Mental Status Patient Orientation: Person, Place, Time, Situation Attachments: Drains, Sanchez Catheter, Other-See Comments (back brace max assist to don) Gem drain came out during rx as pt. practiced sup to side to sit TRF, this was reported to nursing Transfers Functional [place] Measure 0=Not Assessed/NA 4=Minimal Assistance 1=Total Assistance 5=Supervision or Setup 2=Maximal Assistance 6=Modified [place] 3=Moderate Assistance 7=Complete IndependenceIRFPAI Quality Coding Scale 6 Independent with activity with or without an assistive device 5 Patient requires set up or clean up by helper. Patient completes activity by themselves 4 Supervision or touching assist (CGA). [place] provide cues , steadying assist 3 The helper provides less than half the effort to complete the activity 2 The helper provides more than half the effort to complete the activity 1 Dependent. The helper does all the effort to complete an activity 7 Patient refused to complete or attempt activity 9 The patient did not perform the activity before the current illness or injury 88 Not attempted due to Medical conditions or safety concerns Transfers (B, C, W/C) (FIM): 3 Scootin Rollin Supine to/from Sit: 3 Sit to/from Stand: 4 Bed to/from Chair: 4 Weight Bearing Right Lower Extremity: Right Weight Bearing/Tolerated Left Lower Extremity: Left Weight Bearing/Tolerated Gait Training Does the Patient Walk?: Yes Gait (FIM): 2 Distance (FIM): 7=625-60 ft (100x3) Gait Level of Assist: 4 Gait Persons Needed: 1 Gait Assistive Device: FWW Exercises Supine Ex: Bridging, Ankle pumps, Quad Set, Rolling, Glut sets, Heel Slides, Short Arc Quads, Scooting, Hip abd/add Supine Reps: 15 Seated Therapy Exercises: Ankle pumps, Sit to stand, Long arc quads, Hip abd/ add Seated Reps: 10 Assessment Current Status: Good Progress PT Short Term Goals Short Term Goals Time Frame: Feb 06, 2018 Transfers (B,C,W/C) (FIM): 4 Gait (FIM): 2 Gait Distance Comment: 50' Gait Level of Assist: 4 Gait Assistive Device: FWW PT Day Spa Manager Goals Day Spa Manager Goals PT Mcc Goals Time Frame: Feb 20, 2018 Transfers (B,C,W/C) (FIM): 5 Sit to Lying (QC): 4 Lying-Sitting on Side/Bed(QC): 4 Sit to Stand (QC): 4 Rollin Roll Left to Right (QC): 4 Chair/Ykl-ac-Gblnf Xfer(QC): 4 Car Transfer (QC): 4 Gait (FIM): 5 Distance: 150' Walk 10 feet (QC): 4 Walk 10ft-Uneven Surface(QC): 4 Walk 50ft with 2 Turns (QC): 4 Walk 150 ft (QC): 4 Gait Level of Assist: 5 Gait Assistive Device: FWW Stairs (FIM): 2 # of Steps: 4 1 Step (curb) (QC): 4 4 Steps (QC): 4 12 Steps (QC): 4 Stairs Level Of Assist: 5 PT Plan Treatment/Plan Treatment Plan: Continue Plan of Care Treatment Plan: Bed Mobility, Concurrent Therapy, Education, Functional Activity Lotus, Functional Strength, Group Therapy, Gait, Safety, Therapeutic Exercise, Transfers Treatment Duration: Feb 20, 2018 Frequency: At least 5 of 7 days/Wk (IRF) Estimated Hrs Per Day: 1.5 hours per day Patient and/or Family Agrees t: Yes Safety Risks/Education Patient Education: Gait Training, Transfer Techniques, Correct Positioning, Disease Process, Safety Issues Teaching Recipient: Patient Teaching Methods: Demonstration, Discussion Response to Teaching: Verbalize Understanding, Return Demonstration, Reinforcement Needed Time/GCodes Time In: 900 Time Out: 1000 Total Billed Treatment Time: 60 Total Billed Treatment 1,GT20m,FA25m,EX15m G Codes Necessary: PRETTY Blanc HOLTER TECHNICIAN Feb 03, 2018 10:12
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
--- NOTE | 2018-02-03 14:35 | Therapy Group Daily Note ---
Therapy Daily Group Note Patient Education Topic Other List Below (orientation to rehab practices and expectations, importance of activity and exercise) Exercises LE Seated Exercise, UE Exercise Other/Notes Pt. attended group PT OT session this date. Pt.ambulated back and forth with FWW and assist. Pt. participated well introducing himself and initiating conversation. Pts. all participated in U&L extremity exercises sharing ones they had learned and demonstrating them to others for group exercise. Orientation to rehab education was completed as well as explanation of 3 hr expectation and schedule etc. Pt. to room after exercise and education. Min assist to bed. Start Time: 13:00 Stop Time: 14:05 Total Billed Treatment Time: 65 Total Billed Treatment 1,GRP PRETTY CRUZ SUPERVISOR SEAMING Feb 03, 2018 14:35
[2018-02-03] MEDS: inSUlin DETERMIR 1 UNIT/0.01 ML (LEVEMIR) CHARGE PER UNIT SQ SCH (17:43)
[2018-02-03 19:14] VITALS: BP 130/78
[2018-02-03] MEDS: metFORMIN XR 500 MG (GLUCOPHAGE XR) TAB PO SCH (20:54)
[2018-02-03] MEDS: SIMvastatin 10 MG (ZOCOR) TAB PO SCH (20:54)
[2018-02-03] MEDS: BISACODYL 5 MG (DULCOLAX) TABLET PO PRN (20:54)
--- NOTE | 2018-02-03 21:55 | PM & R (SOAP) Progress Note ---
Subjective This was a face to face visit with the patient. Date Seen by Provider: Feb 03, 2018 Time Seen by Provider: 20:05 Subjective/Events-last exam Patient was seen in her room this evening Patient min to mod assist for transfers Case discussed with RN.Patient reports constipation meds reviewed Review of Systems Gastrointestinal: Constipation Musculoskeletal: back pain Objective Physician Exam Last Set of Vital Signs Vital Signs Date Time Temp Pulse Resp B/P (MAP) Pulse Ox O2 Delivery O2 Flow Rate FiO2 02/03/18 19:14 97.7 83 18 130/78 (95) 96 Room Air Capillary Refill : I&O Intake and Output 02/03/18 00:00 Intake Total 1160 ml Output Total 3175 ml Balance -2015 ml Intake Oral 1160 ml Output Urine Total 3175 ml Drainage Total 0 ml General: No Acute Distress HEENT: Atraumatic Neck: Supple, No JVD Lungs: Other (even and unlabored) Heart: Regular Rate Abdomen: Normal Bowel Sounds, Soft, No Tenderness, Other (Abdominal corset in place) Extremities: Other (Trace edeam in ankles) Skin: Other (Has ROBIN drain and Indwelling Sanchez catheter to DD) Neuro: Normal Speech, Normal Tone, Cranial Nerves 3-12 NL Psych/Mental Status: Mental Status NL, Mood NL Results Lab Data Laboratory Tests 02/01/18 01:26: Glucometer 68L 02/01/18 02:03: Glucometer 81 02/01/18 02:50: Glucometer 102 02/01/18 05:15: Glucometer 97 02/01/18 06:00: White Blood Count 3.4L, Red Blood Count 2.14L, Hemoglobin 7.2L, Hematocrit 22L, Mean Corpuscular Volume 101H, Mean Corpuscular Hemoglobin 34, Mean Corpuscular Hemoglobin Concent 33, Red Cell Distribution Width 15.6H, Platelet Count 113L, Mean Platelet Volume 10.8H 02/01/18 10:49: Glucometer 94 02/01/18 16:08: Glucometer 202H 02/01/18 20:49: Glucometer 277H 02/02/18 05:29: Glucometer 133H 02/02/18 05:40: White Blood Count 2.6L, Red Blood Count 2.41L, Hemoglobin 8.4L, Hematocrit 24L, Mean Corpuscular Volume 101H, Mean Corpuscular Hemoglobin 35H, Mean Corpuscular Hemoglobin Concent 35, Red Cell Distribution Width 15.0H, Platelet Count 82L, Mean Platelet Volume 11.4H, Neutrophils (%) (Auto) 61, Lymphocytes (%) (Auto) 28 , Monocytes (%) (Auto) 4, Eosinophils (%) (Auto) 7, Basophils (%) (Auto) 0, Neutrophils # (Auto) 1.6L, Lymphocytes # (Auto) 0.7L, Monocytes # (Auto) 0.1, Eosinophils # (Auto) 0.2, Basophils # (Auto) 0.0 02/02/18 10:55: Glucometer 137H 02/02/18 16:11: Glucometer 202H 02/02/18 21:11: Glucometer 253H 02/03/18 04:31: Glucometer 91 02/03/18 05:50: White Blood Count 2.5L, Red Blood Count 2.45L, Hemoglobin 8.2L, Hematocrit 25L, Mean Corpuscular Volume 100H, Mean Corpuscular Hemoglobin 33, Mean Corpuscular Hemoglobin Concent 33, Red Cell Distribution Width 14.8H, Platelet Count 169, Mean Platelet Volume 10.0, Neutrophils (%) (Auto) 67, Lymphocytes (%) (Auto) 26 , Monocytes (%) (Auto) 4, Eosinophils (%) (Auto) 2, Basophils (%) (Auto) 0, Neutrophils # (Auto) 1.7L, Lymphocytes # (Auto) 0.7L, Monocytes # (Auto) 0.1, Eosinophils # (Auto) 0.1, Basophils # (Auto) 0.0 02/03/18 12:00: Glucometer 252H 02/03/18 16:51: Glucometer 233H 02/03/18 20:46: Glucometer 306H Assessment/Plan Assessment and Plan Lumbar spinal stenosis s/p decompressive surgery Sanchez out patient voiding Postop anemia stable at 8.2 Postop atelectasis DM controlled Hx of multiple falls Previous CVA seen on CT Hx of previous back surgery Obesity Chronic back pain Anxiety Reported HX of pancreatitis and Hep C and A Postop constipation Plan Continue PT/OT Team Conference 02-05-18 (1) Spinal stenosis, lumbar region, with neurogenic claudication Co-Morbidities that are continuing to impact the rehab process: (include details ) MARIO UNGER MD Feb 03, 2018 21:55
[2018-02-04] MEDS: HYDROcodone/APAP 5 MG/325 MG (LORTAB) TAB PO PRN ×4 (01:26→20:17)
[2018-02-04 05:24] VITALS: BP 134/85
[2018-02-04] MEDS: MULTIVIT W/MINERALS TAB (THERAGRAN M) PO SCH (06:15)
[2018-02-04] MEDS: AUGMENTIN 875 MG TAB (AMOXICILLIN/CLAVULANATE) PO SCH ×2 (06:15→17:00)
[2018-02-04] MEDS: inSUlin ASPART (NovoLOG) 1 UNIT/0.01 ML (CHARGE PER UNIT) SC SCH ×4 (06:15→22:06)
[2018-02-04 06:40] LABS: BASOPHILS % (AUTO) 0 % (0-10); EOSINOPHILS # (AUTO) 0.1 10^3/uL (0.0-0.3); EOSINOPHILS % (AUTO) 3 % (0-10); HEMATOCRIT 25 % (35-52); HEMOGLOBIN 8.4 G/DL (11.5-16.0); LYMPHOCYTES # (AUTO) 0.9 X 10^3 (1.0-4.0); LYMPHOCYTES % (AUTO) 31 % (12-44); MEAN CORPUSCULAR HEMOGLOBIN 34 PG (25-34); MEAN CORPUSCULAR HGB CONC 34 G/DL (32-36); MEAN CORPUSCULAR VOLUME 101 FL (80-99); MEAN PLATELET VOLUME 10.5 FL (7.4-10.4); MONOCYTES # (AUTO) 0.1 X 10^3 (0.0-1.0); MONOCYTES % (AUTO) 5 % (0-12); NEUTROPHILS # (AUTO) 1.7 X 10^3 (1.8-7.8); NEUTROPHILS % (AUTO) 61 % (42-75); PLATELET COUNT 163 10^3/uL (130-400); RED BLOOD COUNT 2.45 10^6/uL (4.35-5.85); RED CELL DISTRIBUTION WIDTH 14.9 % (10.0-14.5); WHITE BLOOD COUNT 2.8 10^3/uL (4.3-11.0)
[2018-02-04] MEDS: DOCUSATE SODIUM 100 MG (COLACE) CAP PO SCH ×2 (08:18→22:02)
[2018-02-04] MEDS: lisINopril 5 MG (PRINIVIL) TABLET PO SCH (08:18)
[2018-02-04] MEDS: PREGABALIN 50 MG (LYRICA) CAP PO SCH ×2 (08:18→22:02)
--- NOTE | 2018-02-04 09:24 | Progress Note-Hospitalist ---
Subjective HPI/CC On Admission Date Seen by Provider: Feb 04, 2018 Time Seen by Provider: 09:30 Subjective/Events-last exam Patient doing well otherwise Drain has been removed Pain is still an issue Reviewed labs and meds Review of Systems Musculoskeletal: back pain Objective Exam Vital Signs Vital Signs Date Time Temp Pulse Resp B/P (MAP) Pulse Ox O2 Delivery O2 Flow Rate FiO2 02/04/18 15:58 97.7 83 14 118/69 (85) 98 Room Air Capillary Refill : General Appearance: No Apparent Distress, WD/WN, Chronically ill Respiratory: Lungs Clear, Normal Breath Sounds Cardiovascular: Regular Rate, Rhythm, Systolic Murmur Back: Decreased Range of Motion Neurologic/Psychiatric: Alert, Oriented x3, No Motor/Sensory Deficits, Normal Mood/Affect Results/Procedures Lab Laboratory Tests 02/04/18 06:25 Patient resulted labs reviewed. 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
--- NOTE | 2018-02-04 09:29 | Physical Therapy Daily Note ---
PT Daily Note-Current Subjective Pt. heard from outside in [place] before approaching pt. in room. Pt. moaning loudly, " Oh, Oh!". Whe approached pt. writhing gently left and right and states she has pain in her abdomen globally all across from left to right ( indicating with her hands) and states her upper legs also ache and hurt. Pt. rates this pain at 9.5/10. Requests pain meds. Nursing states pt. was medicated earlier. Nursing also states pt. has not had BM that they can see recorded. Pt. refuses all therapies at this time. Pain Numeric Pain Scale: 9 Location: Medial Location Body Site: Abdomen Pain Description: Stabbing Mental Status eyes closed moaning Transfers Functional [place] Measure 0=Not Assessed/NA 4=Minimal Assistance 1=Total Assistance 5=Supervision or Setup 2=Maximal Assistance 6=Modified [place] 3=Moderate Assistance 7=Complete IndependenceIRFPAI Quality Coding Scale 6 Independent with activity with or without an assistive device 5 Patient requires set up or clean up by helper. Patient completes activity by themselves 4 Supervision or touching assist (CGA). [place] provide cues , steadying assist 3 The helper provides less than half the effort to complete the activity 2 The helper provides more than half the effort to complete the activity 1 Dependent. The helper does all the effort to complete an activity 7 Patient refused to complete or attempt activity 9 The patient did not perform the activity before the current illness or injury 88 Not attempted due to Medical conditions or safety concerns Scootin Rollin Weight Bearing Right Lower Extremity: Right Weight Bearing/Tolerated Left Lower Extremity: Left Weight Bearing/Tolerated Treatments this PROCESSING MGR and nursing pulled pt. up in bed and rolled to left side as pt. requested might feel better. Nursing to assess pt. Assessment Current Status: Refused Treatment pt. with high level pain c/o declines therapies PT Short Term Goals Short Term Goals Time Frame: Feb 06, 2018 Transfers (B,C,W/C) (FIM): 4 Gait (FIM): 2 Gait Distance Comment: 50' Gait Level of Assist: 4 Gait Assistive Device: FWW PT Candle Molder Hand Goals Fci Goals PT Fci Goals Time Frame: Feb 20, 2018 Transfers (B,C,W/C) (FIM): 5 Sit to Lying (QC): 4 Lying-Sitting on Side/Bed(QC): 4 Sit to Stand (QC): 4 Rollin Roll Left to Right (QC): 4 Chair/[id number] Xfer(QC): 4 Car Transfer (QC): 4 Gait (FIM): 5 Distance: 150' Walk 10 feet (QC): 4 Walk 10ft-Uneven Surface(QC): 4 Walk 50ft with 2 Turns (QC): 4 Walk 150 ft (QC): 4 Gait Level of Assist: 5 Gait Assistive Device: FWW Stairs (FIM): 2 # of Steps: 4 1 Step (curb) (QC): 4 4 Steps (QC): 4 12 Steps (QC): 4 Stairs Level Of Assist: 5 PT Plan Treatment/Plan Treatment Plan: Continue Plan of Care Treatment Plan: Bed Mobility, Concurrent Therapy, Education, Functional Activity Lotus, Functional Strength, Group Therapy, Gait, Safety, Therapeutic Exercise, Transfers Treatment Duration: Feb 20, 2018 Frequency: At least 5 of 7 days/Wk (IRF) Estimated Hrs Per Day: 1.5 hours per day Patient and/or Family Agrees t: Yes Time/GCodes Time In: 915 Time Out: 935 Total Billed Treatment Time: 20 Total Billed Treatment 1,FA15m G Codes Necessary: No PRETTY CRUZ PROCESSING MGR Feb 04, 2018 09:29
--- NOTE | 2018-02-04 09:30 | PM & R (SOAP) Progress Note ---
Subjective This was a face to face visit with the patient. Date Seen by Provider: Feb 04, 2018 Time Seen by Provider: 07:50 Subjective/Events-last exam Patient was seen in her room this AM Patient moaning intermittently-complaining of constipation Discussed with RN Bowel meds to be adjusted.Patient Mod assist for transfers Appreciate DR Uribe note. Review of Systems Gastrointestinal: Constipation Musculoskeletal: back pain Objective Physician Exam Last Set of Vital Signs Vital Signs Date Time Temp Pulse Resp B/P (MAP) Pulse Ox O2 Delivery O2 Flow Rate FiO2 02/04/18 05:24 98.5 84 18 134/85 (101) 96 Room Air Capillary Refill : I&O Intake and Output 02/04/18 00:00 Intake Total 1360 ml Output Total 1790 ml Balance -430 ml Intake Oral 1360 ml Output Urine Total 1750 ml Drainage Total 40 ml General: No Acute Distress HEENT: Atraumatic Neck: Supple, No JVD Lungs: Other (even and unlabored) Heart: Regular Rate Abdomen: Normal Bowel Sounds, Soft, No Tenderness, Other (Abdominal corset in place) Extremities: Other (Trace edeam in ankles) Skin: Other (Has ROBIN drain and Indwelling Sanchez catheter to DD) Neuro: Normal Speech, Normal Tone, Cranial Nerves 3-12 NL Psych/Mental Status: Mental Status NL, Mood NL Results Lab Data Laboratory Tests 02/01/18 10:49: Glucometer 94 02/01/18 16:08: Glucometer 202H 02/01/18 20:49: Glucometer 277H 02/02/18 05:29: Glucometer 133H 02/02/18 05:40: White Blood Count 2.6L, Red Blood Count 2.41L, Hemoglobin 8.4L, Hematocrit 24L, Mean Corpuscular Volume 101H, Mean Corpuscular Hemoglobin 35H, Mean Corpuscular Hemoglobin Concent 35, Red Cell Distribution Width 15.0H, Platelet Count 82L, Mean Platelet Volume 11.4H, Neutrophils (%) (Auto) 61, Lymphocytes (%) (Auto) 28 , Monocytes (%) (Auto) 4, Eosinophils (%) (Auto) 7, Basophils (%) (Auto) 0, Neutrophils # (Auto) 1.6L, Lymphocytes # (Auto) 0.7L, Monocytes # (Auto) 0.1, Eosinophils # (Auto) 0.2, Basophils # (Auto) 0.0 02/02/18 10:55: Glucometer 137H 02/02/18 16:11: Glucometer 202H 02/02/18 21:11: Glucometer 253H 02/03/18 04:31: Glucometer 91 02/03/18 05:50: White Blood Count 2.5L, Red Blood Count 2.45L, Hemoglobin 8.2L, Hematocrit 25L, Mean Corpuscular Volume 100H, Mean Corpuscular Hemoglobin 33, Mean Corpuscular Hemoglobin Concent 33, Red Cell Distribution Width 14.8H, Platelet Count 169, Mean Platelet Volume 10.0, Neutrophils (%) (Auto) 67, Lymphocytes (%) (Auto) 26 , Monocytes (%) (Auto) 4, Eosinophils (%) (Auto) 2, Basophils (%) (Auto) 0, Neutrophils # (Auto) 1.7L, Lymphocytes # (Auto) 0.7L, Monocytes # (Auto) 0.1, Eosinophils # (Auto) 0.1, Basophils # (Auto) 0.0 02/03/18 12:00: Glucometer 252H 02/03/18 16:51: Glucometer 233H 02/03/18 20:46: Glucometer 306H 02/04/18 04:38: Glucometer 104 02/04/18 06:25: White Blood Count 2.8L, Red Blood Count 2.45L, Hemoglobin 8.4L, Hematocrit 25L, Mean Corpuscular Volume 101H, Mean Corpuscular Hemoglobin 34, Mean Corpuscular Hemoglobin Concent 34, Red Cell Distribution Width 14.9H, Platelet Count 163, Mean Platelet Volume 10.5H, Neutrophils (%) (Auto) 61, Lymphocytes (%) (Auto) 31 , Monocytes (%) (Auto) 5, Eosinophils (%) (Auto) 3, Basophils (%) (Auto) 0, Neutrophils # (Auto) 1.7L, Lymphocytes # (Auto) 0.9L, Monocytes # (Auto) 0.1, Eosinophils # (Auto) 0.1, Basophils # (Auto) 0.0 Assessment/Plan Assessment and Plan Lumbar spinal stenosis s/p decompression Sanchez out patient voiding UC&S shows no growth Postop anemia stable Postop atelectais improved DM controlled Hx of multiple falls Previous CVA on CT Hx of prevoius back surgery Obesity Chronic back pain Anxiety reported HX of Pancreatitis and Hep C and A Postop constipation meds being adjusted Plan Continue PT/OT/Pain management Adjust Bowel meds as needed TeaM conference tomorrow 02-05-18 (1) Spinal stenosis, lumbar region, with neurogenic claudication Co-Morbidities that are continuing to impact the rehab process: (include details ) MARIO UNGER MD Feb 04, 2018 09:30
[2018-02-04] MEDS: BISACODYL 5 MG (DULCOLAX) TABLET PO PRN (11:57)
[2018-02-04] MEDS ORDERED: FLEET ENEMA ADULT 1 EA BTL PR PRN (12:45)
[2018-02-04] MEDS ORDERED: BISACODYL 10 MG SUPP (DULCOLAX) PR PRN (12:45)
--- NOTE | 2018-02-04 12:57 | Occupational Ther Daily Note ---
OT Current Status-Daily Note Subjective Pt seen in room, in bed, initially refusing therapy. Pain rated 8/10 "in my back and in my stomach". Appearance Asleep, drowsy, lethargic Mental Status/Objective Functional [place] Measure 0=Not Assessed/NA 4=Minimal Assistance 1=Total Assistance 5=Supervision or Setup 2=Maximal Assistance 6=Modified [place] 3=Moderate Assistance 7=Complete [place] ADL-Treatment Pt initially seen at 10:40 and refused OT. Arranged to return at 11. Pt reluctantly agreed to get up to EOB to "wash up" and change clothes. Able to get self to EOB slowly, with HOB raised up. Sat EOB without LOB. Pt washed her face and hands, under arms, put on her shirt and refused to participate further , stating that she was in too much pain and needed to lie down. It has been reported that she perhaps hasn't had a BM in a while and nursing/physicians are addressing this. Pt got back into bed, curled up on her side and closed her eyes. OT unable to get further patient participation, even with pt education. Pt left up in bed, 4 rails up, all needs met. Functional [place] Measure 0=Not Assessed/NA 4=Minimal Assistance 1=Total Assistance 5=Supervision or Setup 2=Maximal Assistance 6=Modified [place] 3=Moderate Assistance 7=Complete IndependenceIRFPAI Quality Coding Scale 6 Independent with activity with or without an assistive device 5 Patient requires set up or clean up by helper. Patient completes activity by themselves 4 Supervision or touching assist (CGA). [place] provide cues , steadying assist 3 The helper provides less than half the effort to complete the activity 2 The helper provides more than half the effort to complete the activity 1 Dependent. The helper does all the effort to complete an activity 7 Patient refused to complete or attempt activity 9 The patient did not perform the activity before the current illness or injury 88 Not attempted due to Medical conditions or safety concerns Education OT Patient Education: Purpose of tx/functional activities, Transfer techniques Teaching Recipient: Patient Teaching Methods: Discussion Response to Teaching: Verbalize Understanding OT Short Term Goals Short Term Goals Time Frame: Feb 06, 2018 Eating(FIM): 5 Grooming(FIM): 5 Bathing(FIM): 4 Upper Body Dressing(FIM): 4 Lower Body Dressing(FIM): 4 Toileting(FIM): 4 Transfers (B,C,W/C) (FIM): 4 Toilet/Commode Transfer(FIM): 4 Shower Transfer(FIM): 4 Additional Short Term Goals: 1-Demonstrate ADL Tasks, 2-Verbalize Understanding , 3-ImproveStrength/Lotus 1=Demonstrate adherence to instructed precautions during ADL tasks. 2=Patient will verbalize/demonstrate understanding of assistive devices/ modifications for ADL. 3=Patient will improve strength/tolerance for activity to enable patient to perform ADL's. OT Fpc Goals Inspector And Sorter Goals Time Frame: Feb 20, 2018 Eating (FIM): 6 Eating (QC): 6 Groomin Oral Hygiene (QC): 6 Bathing(FIM): 5 Shower/Bathe Self (QC): 5 Upper Body Dressing(FIM): 6 Upper Body Dressing (QC): 6 Lower Body Dressing(FIM): 6 Lower Body Dressing (QC): 6 On/Off Footwear (QC): 6 Toileting(FIM): 6 Toileting Hygiene (QC): 6 Transfers (B,C,W/C) (FIM): 6 Toilet/Commode Transfer(FIM): 6 Toilet/Commode Transfer (QC): 6 Shower Transfer(FIM): 5 Additional Goals: 1-Demonstrate ADL Tasks, 2-Verbalize Understanding, 3- ImproveStrength/Lotus 1=Demonstrate adherence to instructed precautions during ADL tasks. 2=Patient will verbalize/demonstrate understanding of assistive devices/ modifications for ADL. 3=Patient will improve strength/tolerance for activity to enable patient to perform ADL's. OT Education/Plan Discharge Recommendations Plan/Recommendations: Continue POC Treatment Plan/Plan of Care Patient would benefit from OT for education, treatment and training to promote independence in ADL's, mobility, safety and/or upper extremity function for ADL' s. Plan of Care: ADL Retraining, Functional Mobility, UE Funct Exercise/Act Treatment Duration: Feb 20, 2018 Frequency: 5 times per week Estimated Hrs Per Day: 1.5 hours per day Agreement: Yes Rehab Potential: Good Time/GCodes Start Time: 11:00 Stop Time: 11:20 Total Time Billed (hr/min): 20 Billed Treatment Time visit, 20 minutes ADL MARLENY MARLEY OT Feb 04, 2018 12:57
--- NOTE | 2018-02-04 14:15 | Occupational Ther Daily Note ---
OT Current Status-Daily Note Subjective Pt seen in room, up in recliner, agreeable to OT. "Now that I've had my hissyfit , I'm ready to work." Appearance Alert, cooperative Mental Status/Objective Functional [place] Measure 0=Not Assessed/NA 4=Minimal Assistance 1=Total Assistance 5=Supervision or Setup 2=Maximal Assistance 6=Modified [place] 3=Moderate Assistance 7=Complete [place] ADL-Treatment Pt needed min assist to get out of recliner, wearing back brace. Walked to bathroom and got on/off BSC over toilet with min assist, FWW. Cues for walker placement with transfer. Cues and assist to get pants down far enough for toileting but she was able to wipe and pull pants up. Washed hands, cleaned teeth, standing at sink with SBA, FWW. Pt walked to gym with CGA, FWW and was able to get into chair with arms with min assist. Did bilat UE strengthening activities with 1# weight on each arm, including arc activity and nuts and bolts board, to strengthen arms to help with getting up and down from chairs with arms. Care transferred to PT. Functional [place] Measure 0=Not Assessed/NA 4=Minimal Assistance 1=Total Assistance 5=Supervision or Setup 2=Maximal Assistance 6=Modified [place] 3=Moderate Assistance 7=Complete IndependenceIRFPAI Quality Coding Scale 6 Independent with activity with or without an assistive device 5 Patient requires set up or clean up by helper. Patient completes activity by themselves 4 Supervision or touching assist (CGA). [place] provide cues , steadying assist 3 The helper provides less than half the effort to complete the activity 2 The helper provides more than half the effort to complete the activity 1 Dependent. The helper does all the effort to complete an activity 7 Patient refused to complete or attempt activity 9 The patient did not perform the activity before the current illness or injury 88 Not attempted due to Medical conditions or safety concerns Grooming (FIM): 5 Toileting (FIM): 3 Toileting Hygiene (QC): 3 Toilet/Commode Transfer (FIM): 4 Education OT Patient Education: Exercise program, Progress toward Goal/Update tx plan, Purpose of tx/functional activities, Safety issues, Transfer techniques Teaching Recipient: Patient Teaching Methods: Demonstration, Discussion Response to Teaching: Verbalize Understanding, Return Demonstration, Reinforcement Needed OT Short Term Goals Short Term Goals Time Frame: Feb 06, 2018 Eating(FIM): 5 Grooming(FIM): 5 Bathing(FIM): 4 Upper Body Dressing(FIM): 4 Lower Body Dressing(FIM): 4 Toileting(FIM): 4 Transfers (B,C,W/C) (FIM): 4 Toilet/Commode Transfer(FIM): 4 Shower Transfer(FIM): 4 Additional Short Term Goals: 1-Demonstrate ADL Tasks, 2-Verbalize Understanding , 3-ImproveStrength/Lotus 1=Demonstrate adherence to instructed precautions during ADL tasks. 2=Patient will verbalize/demonstrate understanding of assistive devices/ modifications for ADL. 3=Patient will improve strength/tolerance for activity to enable patient to perform ADL's. OT Patternmaker Grader Goals Chcf Goals Time Frame: Feb 20, 2018 Eating (FIM): 6 Eating (QC): 6 Groomin Oral Hygiene (QC): 6 Bathing(FIM): 5 Shower/Bathe Self (QC): 5 Upper Body Dressing(FIM): 6 Upper Body Dressing (QC): 6 Lower Body Dressing(FIM): 6 Lower Body Dressing (QC): 6 On/Off Footwear (QC): 6 Toileting(FIM): 6 Toileting Hygiene (QC): 6 Transfers (B,C,W/C) (FIM): 6 Toilet/Commode Transfer(FIM): 6 Toilet/Commode Transfer (QC): 6 Shower Transfer(FIM): 5 Additional Goals: 1-Demonstrate ADL Tasks, 2-Verbalize Understanding, 3- ImproveStrength/Lotus 1=Demonstrate adherence to instructed precautions during ADL tasks. 2=Patient will verbalize/demonstrate understanding of assistive devices/ modifications for ADL. 3=Patient will improve strength/tolerance for activity to enable patient to perform ADL's. OT Education/Plan Discharge Recommendations Plan/Recommendations: Continue POC Treatment Plan/Plan of Care Patient would benefit from OT for education, treatment and training to promote independence in ADL's, mobility, safety and/or upper extremity function for ADL' s. Plan of Care: ADL Retraining, Functional Mobility, UE Funct Exercise/Act Treatment Duration: Feb 20, 2018 Frequency: 5 times per week Estimated Hrs Per Day: 1.5 hours per day Agreement: Yes Rehab Potential: Good Time/GCodes Start Time: 13:00 Stop Time: 13:30 Total Time Billed (hr/min): 30 Billed Treatment Time visit, 15 minutes ADL, 15 minutes exercise MARLENY MARLEY OT Feb 04, 2018 14:15
--- NOTE | 2018-02-04 14:45 | Physical Therapy Daily Note ---
PT Daily Note-Current Subjective Pt. agrees to Rx. States she feels better now. Ready to work. "did I have a little hissy fit with you this morning?" Pain Numeric Pain Scale: 0-No Pain Transfers Functional [place] Measure 0=Not Assessed/NA 4=Minimal Assistance 1=Total Assistance 5=Supervision or Setup 2=Maximal Assistance 6=Modified [place] 3=Moderate Assistance 7=Complete IndependenceIRFPAI Quality Coding Scale 6 Independent with activity with or without an assistive device 5 Patient requires set up or clean up by helper. Patient completes activity by themselves 4 Supervision or touching assist (CGA). [place] provide cues , steadying assist 3 The helper provides less than half the effort to complete the activity 2 The helper provides more than half the effort to complete the activity 1 Dependent. The helper does all the effort to complete an activity 7 Patient refused to complete or attempt activity 9 The patient did not perform the activity before the current illness or injury 88 Not attempted due to Medical conditions or safety concerns Transfers (B, C, W/C) (FIM): 5 Scootin Rollin Sit to/from Stand: 5 All TRFs SBA sup to sit and sit to stand Weight Bearing Right Lower Extremity: Right Weight Bearing/Tolerated Left Lower Extremity: Left Weight Bearing/Tolerated Gait Training Does the Patient Walk?: Yes Gait (FIM): 5 Distance (FIM): 3=150 ft (200x3) Gait Level of Assist: 5 Gait Persons Needed: 1 Gait Assistive Device: FWW Exercises Supine Ex: Ankle pumps, Quad Set, Rolling, Glut sets, Heel Slides, Short Arc Quads, Scooting, Hip abd/add Supine Reps: 20 Seated Therapy Exercises: Ankle pumps, Sit to stand, Long arc quads, Hip abd/ add Seated Reps: 20 NuStep Minutes: 11 NuStep Workload: 2 Assessment Current Status: Good Progress increased functional mobility, decreased pain PT Short Term Goals Short Term Goals Time Frame: Feb 06, 2018 Transfers (B,C,W/C) (FIM): 4 Gait (FIM): 2 Gait Distance Comment: 50' Gait Level of Assist: 4 Gait Assistive Device: FWW PT Open End Spinning Operator Goals Usp Goals PT Open End Spinning Operator Goals Time Frame: Feb 20, 2018 Transfers (B,C,W/C) (FIM): 5 Sit to Lying (QC): 4 Lying-Sitting on Side/Bed(QC): 4 Sit to Stand (QC): 4 Rollin Roll Left to Right (QC): 4 Chair/Qyo-ow-Kvcmh Xfer(QC): 4 Car Transfer (QC): 4 Gait (FIM): 5 Distance: 150' Walk 10 feet (QC): 4 Walk 10ft-Uneven Surface(QC): 4 Walk 50ft with 2 Turns (QC): 4 Walk 150 ft (QC): 4 Gait Level of Assist: 5 Gait Assistive Device: FWW Stairs (FIM): 2 # of Steps: 4 1 Step (curb) (QC): 4 4 Steps (QC): 4 12 Steps (QC): 4 Stairs Level Of Assist: 5 PT Plan Treatment/Plan Treatment Plan: Continue Plan of Care Treatment Plan: Bed Mobility, Concurrent Therapy, Education, Functional Activity Lotus, Functional Strength, Group Therapy, Gait, Safety, Therapeutic Exercise, Transfers Treatment Duration: Feb 20, 2018 Frequency: At least 5 of 7 days/Wk (IRF) Estimated Hrs Per Day: 1.5 hours per day Patient and/or Family Agrees t: Yes Safety Risks/Education Patient Education: Gait Training, Transfer Techniques, Correct Positioning, Safety Issues Teaching Recipient: Patient Teaching Methods: Demonstration, Discussion Response to Teaching: Return Demonstration, Reinforcement Needed Time/GCodes Time In: 1330 Time Out: 1440 Total Billed Treatment Time: 70 Total Billed Treatment 1,FA25m,EX30m,GT15m G Codes Necessary: PRETTY Blanc AIRDROP SYSTEMS TECHNICIAN Feb 04, 2018 14:45
--- NOTE | 2018-02-04 14:57 | Occupational Ther Daily Note ---
OT Current Status-Daily Note Subjective Pt alert, sitting in recliner. Pt agrees to therapy. No c/o pain at this time. Mental Status/Objective Functional [place] Measure 0=Not Assessed/NA 4=Minimal Assistance 1=Total Assistance 5=Supervision or Setup 2=Maximal Assistance 6=Modified [place] 3=Moderate Assistance 7=Complete [place] Attachments: Other-See Comments (Back Brace) ADL-Treatment Pt declined shower today. Agrees to sponge bath. Pt just finished with PT and sat in recliner to eat late lunch. After therapy, pt lying in bed with call light/phone in reach. All needs met in room. Functional [place] Measure 0=Not Assessed/NA 4=Minimal Assistance 1=Total Assistance 5=Supervision or Setup 2=Maximal Assistance 6=Modified [place] 3=Moderate Assistance 7=Complete IndependenceIRFPAI Quality Coding Scale 6 Independent with activity with or without an assistive device 5 Patient requires set up or clean up by helper. Patient completes activity by themselves 4 Supervision or touching assist (CGA). [place] provide cues , steadying assist 3 The helper provides less than half the effort to complete the activity 2 The helper provides more than half the effort to complete the activity 1 Dependent. The helper does all the effort to complete an activity 7 Patient refused to complete or attempt activity 9 The patient did not perform the activity before the current illness or injury 88 Not attempted due to Medical conditions or safety concerns Eating (FIM): 6 (Upper dentures. Pt able to open containers/packages by self. Uses regular utensils to feed self.) Eating (QC): 6 Grooming (FIM): 5 (Supervision for safety as pt stood at sink to complete grooming.) Oral Hygiene (QC): 4 Upper Body (FIM): 5 (After set up, pt able to don/doff upper body clothing. Assist with donning/doffing brace.) Upper Body Dressing (QC): 5 Lower Body Dressing (FIM): 4 (Assist with donning socks. Pt able to use AE to don/doff pants and doffs socks. Hikes pants with SBA using FWW for safety.) Lower Body Dressing (QC): 3 On/Off Footwear (QC): 3 Toileting (FIM): 5 (SBA using FWW, BSC and grabbars to complete hygiene and clothing manipulation.) Toileting Hygiene (QC): 4 Toilet/Commode Transfer (FIM): 5 (Using BSC, grabbars and FWW SBA for transfer.) Toilet Transfer (QC): 4 OT Short Term Goals Short Term Goals Time Frame: Feb 06, 2018 Eating(FIM): 5 Grooming(FIM): 5 Bathing(FIM): 4 Upper Body Dressing(FIM): 4 Lower Body Dressing(FIM): 4 Toileting(FIM): 4 Transfers (B,C,W/C) (FIM): 4 Toilet/Commode Transfer(FIM): 4 Shower Transfer(FIM): 4 Additional Short Term Goals: 1-Demonstrate ADL Tasks, 2-Verbalize Understanding , 3-ImproveStrength/Lotus 1=Demonstrate adherence to instructed precautions during ADL tasks. 2=Patient will verbalize/demonstrate understanding of assistive devices/ modifications for ADL. 3=Patient will improve strength/tolerance for activity to enable patient to perform ADL's. OT Group Home Goals Field Interviewer Goals Time Frame: Feb 20, 2018 Eating (FIM): 6 Eating (QC): 6 Groomin Oral Hygiene (QC): 6 Bathing(FIM): 5 Shower/Bathe Self (QC): 5 Upper Body Dressing(FIM): 6 Upper Body Dressing (QC): 6 Lower Body Dressing(FIM): 6 Lower Body Dressing (QC): 6 On/Off Footwear (QC): 6 Toileting(FIM): 6 Toileting Hygiene (QC): 6 Transfers (B,C,W/C) (FIM): 6 Toilet/Commode Transfer(FIM): 6 Toilet/Commode Transfer (QC): 6 Shower Transfer(FIM): 5 Additional Goals: 1-Demonstrate ADL Tasks, 2-Verbalize Understanding, 3- ImproveStrength/Lotus 1=Demonstrate adherence to instructed precautions during ADL tasks. 2=Patient will verbalize/demonstrate understanding of assistive devices/ modifications for ADL. 3=Patient will improve strength/tolerance for activity to enable patient to perform ADL's. OT Education/Plan Discharge Recommendations Plan/Recommendations: Continue POC Treatment Plan/Plan of Care Patient would benefit from OT for education, treatment and training to promote independence in ADL's, mobility, safety and/or upper extremity function for ADL' s. Plan of Care: ADL Retraining, Functional Mobility, UE Funct Exercise/Act Treatment Duration: Feb 20, 2018 Frequency: 5 times per week Estimated Hrs Per Day: 1.5 hours per day Agreement: Yes Rehab Potential: Good Time/GCodes Start Time: 14:40 Stop Time: 15:20 Total Time Billed (hr/min): 40 Billed Treatment Time 1 visit-ADL 3 (40 min) DANIELLE JIMÉNEZ Feb 04, 2018 14:57
[2018-02-04 15:58] VITALS: BP 118/69
[2018-02-04] MEDS: inSUlin DETERMIR 1 UNIT/0.01 ML (LEVEMIR) CHARGE PER UNIT SQ SCH (17:00)
[2018-02-04] MEDS: metFORMIN XR 500 MG (GLUCOPHAGE XR) TAB PO SCH (22:02)
[2018-02-04] MEDS: SIMvastatin 10 MG (ZOCOR) TAB PO SCH (22:02)
[2018-02-04] MEDS: SENNOSIDES 8.6 MG (SENOKOT) TAB PO SCH (22:02)
[2018-02-04] MEDS: TEMAZEPAM 15 MG (RESTORIL) CAP PO PRN (22:03)
[2018-02-05] MEDS: HYDROcodone/APAP 5 MG/325 MG (LORTAB) TAB PO PRN ×4 (04:41→20:45)
[2018-02-05 05:11] VITALS: BP 130/74
[2018-02-05] MEDS: inSUlin ASPART (NovoLOG) 1 UNIT/0.01 ML (CHARGE PER UNIT) SC SCH ×4 (05:13→20:45)
[2018-02-05] MEDS: AUGMENTIN 875 MG TAB (AMOXICILLIN/CLAVULANATE) PO SCH ×2 (06:12→16:53)
[2018-02-05] MEDS: MULTIVIT W/MINERALS TAB (THERAGRAN M) PO SCH (06:12)
[2018-02-05] MEDS: SENNOSIDES 8.6 MG (SENOKOT) TAB PO SCH ×2 (07:57→20:44)
[2018-02-05] MEDS: lisINopril 5 MG (PRINIVIL) TABLET PO SCH (07:57)
[2018-02-05] MEDS: PREGABALIN 50 MG (LYRICA) CAP PO SCH ×2 (07:57→20:44)
[2018-02-05] MEDS: DOCUSATE SODIUM 100 MG (COLACE) CAP PO SCH ×2 (07:57→20:44)
--- NOTE | 2018-02-05 09:43 | PM & R (SOAP) Progress Note ---
Subjective This was a face to face visit with the patient. Date Seen by Provider: Feb 05, 2018 Time Seen by Provider: 08:05 Subjective/Events-last exam Patient was seen in her room this AM Doing much better after Fleets enema yesterday Had BM.Patient Mod assist for transfers Objective Physician Exam Last Set of Vital Signs Vital Signs Date Time Temp Pulse Resp B/P (MAP) Pulse Ox O2 Delivery O2 Flow Rate FiO2 02/05/18 09:01 Room Air 02/05/18 05:11 98.3 79 16 130/74 (92) 98 Capillary Refill : I&O Intake and Output 02/05/18 00:00 Intake Total 1530 ml Balance 1530 ml Intake Oral 1530 ml # Voids 8 # Bowel Movements 1 General: No Acute Distress HEENT: Atraumatic Neck: Supple, No JVD Lungs: Other (even and unlabored) Heart: Regular Rate Abdomen: Normal Bowel Sounds, Soft, No Tenderness, Other (Abdominal corset in place) Extremities: Other (Trace edeam in ankles) Skin: Other (Has ROBIN drain and Indwelling Sanchez catheter to DD) Neuro: Normal Speech, Normal Tone, Cranial Nerves 3-12 NL Psych/Mental Status: Mental Status NL, Mood NL Results Lab Data Laboratory Tests 02/02/18 10:55: Glucometer 137H 02/02/18 16:11: Glucometer 202H 02/02/18 21:11: Glucometer 253H 02/03/18 04:31: Glucometer 91 02/03/18 05:50: White Blood Count 2.5L, Red Blood Count 2.45L, Hemoglobin 8.2L, Hematocrit 25L, Mean Corpuscular Volume 100H, Mean Corpuscular Hemoglobin 33, Mean Corpuscular Hemoglobin Concent 33, Red Cell Distribution Width 14.8H, Platelet Count 169, Mean Platelet Volume 10.0, Neutrophils (%) (Auto) 67, Lymphocytes (%) (Auto) 26 , Monocytes (%) (Auto) 4, Eosinophils (%) (Auto) 2, Basophils (%) (Auto) 0, Neutrophils # (Auto) 1.7L, Lymphocytes # (Auto) 0.7L, Monocytes # (Auto) 0.1, Eosinophils # (Auto) 0.1, Basophils # (Auto) 0.0 02/03/18 12:00: Glucometer 252H 02/03/18 16:51: Glucometer 233H 02/03/18 20:46: Glucometer 306H 02/04/18 04:38: Glucometer 104 02/04/18 06:25: White Blood Count 2.8L, Red Blood Count 2.45L, Hemoglobin 8.4L, Hematocrit 25L, Mean Corpuscular Volume 101H, Mean Corpuscular Hemoglobin 34, Mean Corpuscular Hemoglobin Concent 34, Red Cell Distribution Width 14.9H, Platelet Count 163, Mean Platelet Volume 10.5H, Neutrophils (%) (Auto) 61, Lymphocytes (%) (Auto) 31 , Monocytes (%) (Auto) 5, Eosinophils (%) (Auto) 3, Basophils (%) (Auto) 0, Neutrophils # (Auto) 1.7L, Lymphocytes # (Auto) 0.9L, Monocytes # (Auto) 0.1, Eosinophils # (Auto) 0.1, Basophils # (Auto) 0.0 02/04/18 11:21: Glucometer 223H 02/04/18 15:54: Glucometer 306H 02/04/18 22:00: Glucometer 254H 02/05/18 04:37: Glucometer 120H Assessment/Plan Assessment and Plan Lumbar spinal stenosis s/p decompression Postop anmeia stable Postop atelectasis improved DM controlled HX of multiple falls Previous CVA on CT HX of previous back surgery Obesity Chronic back pain Anxiety Reported HX of pancreatitis and Hep C and A Postop constipation improved Plan Continue PT/OT Team Conference later today-See report for full functional update and POC and ELOS (1) Spinal stenosis, lumbar region, with neurogenic claudication Status: Resolved Co-Morbidities that are continuing to impact the rehab process: (include details ) MARIO UNGER MD Feb 05, 2018 09:43
--- NOTE | 2018-02-05 10:05 | Physical Therapy Daily Note ---
PT Daily Note-Current Subjective Pt. did not c/o pain. Agrees to Rx. Pain Numeric Pain Scale: 0-No Pain Mental Status Attachments: Other-See Comments (back brace, max assist to leona) pt. makes statements revealing she has memory and cognitive issues Transfers Functional [place] Measure 0=Not Assessed/NA 4=Minimal Assistance 1=Total Assistance 5=Supervision or Setup 2=Maximal Assistance 6=Modified [place] 3=Moderate Assistance 7=Complete IndependenceIRFPAI Quality Coding Scale 6 Independent with activity with or without an assistive device 5 Patient requires set up or clean up by helper. Patient completes activity by themselves 4 Supervision or touching assist (CGA). [place] provide cues , steadying assist 3 The helper provides less than half the effort to complete the activity 2 The helper provides more than half the effort to complete the activity 1 Dependent. The helper does all the effort to complete an activity 7 Patient refused to complete or attempt activity 9 The patient did not perform the activity before the current illness or injury 88 Not attempted due to Medical conditions or safety concerns Transfers (B, C, W/C) (FIM): 6 Scootin Rollin Supine to/from Sit: 6 Sit to/from Stand: 6 Weight Bearing Right Lower Extremity: Right Weight Bearing/Tolerated Left Lower Extremity: Left Weight Bearing/Tolerated Gait Training Does the Patient Walk?: Yes Gait (FIM): 5 Distance (FIM): 3=150 ft (175x2) Gait Level of Assist: 5 Gait Persons Needed: 1 Gait Assistive Device: FWW Exercises Seated Therapy Exercises: Ankle pumps, Sit to stand, Long arc quads Seated Reps: 12 Standing: Hip Abduction, Hamstring curls, Heel/toe raises, Marching, Mini squats Standing Reps: 15 NuStep Minutes: 15 NuStep Workload: 2 Assessment Current Status: Good Progress PT Short Term Goals Short Term Goals Time Frame: Feb 06, 2018 Transfers (B,C,W/C) (FIM): 4 Gait (FIM): 2 Gait Distance Comment: 50' Gait Level of Assist: 4 Gait Assistive Device: FWW PT Rug Sample Beveler Goals Rug Sample Beveler Goals PT [facility] Goals Time Frame: Feb 20, 2018 Transfers (B,C,W/C) (FIM): 5 Sit to Lying (QC): 4 Lying-Sitting on Side/Bed(QC): 4 Sit to Stand (QC): 4 Rollin Roll Left to Right (QC): 4 Chair/Hwj-vo-Dcumq Xfer(QC): 4 Car Transfer (QC): 4 Gait (FIM): 5 Distance: 150' Walk 10 feet (QC): 4 Walk 10ft-Uneven Surface(QC): 4 Walk 50ft with 2 Turns (QC): 4 Walk 150 ft (QC): 4 Gait Level of Assist: 5 Gait Assistive Device: FWW Stairs (FIM): 2 # of Steps: 4 1 Step (curb) (QC): 4 4 Steps (QC): 4 12 Steps (QC): 4 Stairs Level Of Assist: 5 PT Plan Treatment/Plan Treatment Plan: Continue Plan of Care Treatment Plan: Bed Mobility, Concurrent Therapy, Education, Functional Activity Lotus, Functional Strength, Group Therapy, Gait, Safety, Therapeutic Exercise, Transfers Treatment Duration: Feb 20, 2018 Frequency: At least 5 of 7 days/Wk (IRF) Estimated Hrs Per Day: 1.5 hours per day Patient and/or Family Agrees t: Yes Safety Risks/Education Patient Education: Gait Training, Transfer Techniques, Correct Positioning, Disease Process, Safety Issues Teaching Recipient: Patient Teaching Methods: Demonstration, Discussion Response to Teaching: Verbalize Understanding, Return Demonstration, Reinforcement Needed Time/GCodes Time In: 900 Time Out: 1000 Total Billed Treatment Time: 60 Total Billed Treatment 1,FA15m,GT15m,EX30m G Codes Necessary: PRETTY Blanc LEATHER STITCHER Feb 05, 2018 10:05
--- NOTE | 2018-02-05 11:51 | Occupational Ther Daily Note ---
OT Current Status-Daily Note Subjective Pt seen in room, up in bed, agreeable to OT. Wants to shower today. No pain mentioned Appearance Alert, cooperative Mental Status/Objective Functional [place] Measure 0=Not Assessed/NA 4=Minimal Assistance 1=Total Assistance 5=Supervision or Setup 2=Maximal Assistance 6=Modified [place] 3=Moderate Assistance 7=Complete [place] ADL-Treatment Pt was able to move from supine to sit EOB, with HOB elevated some. After covering incision and IV site and applying back brace, she walked with SBA, FWW to bathroom. Got on/off BSC over toilet with SBA but cues to pull pants down far enough. Able to manage hygiene. Walked SBA, FWW to shower and got in shower and on bench with SBA, grab bars. She used dressing stick to take pants and socks off. Washed and dried all parts but needed a couple reminders that she was not to stand to wash without back brace on. Dressed in shower with setup for top, min assist to pull pants up and tuck them in under brace. Sat in w/c to groom at sink mod I, recalling to lock brakes. Walked back to room and got into recliner with SBA. Pt left up in recliner, all needs met. Functional [place] Measure 0=Not Assessed/NA 4=Minimal Assistance 1=Total Assistance 5=Supervision or Setup 2=Maximal Assistance 6=Modified [place] 3=Moderate Assistance 7=Complete IndependenceIRFPAI Quality Coding Scale 6 Independent with activity with or without an assistive device 5 Patient requires set up or clean up by helper. Patient completes activity by themselves 4 Supervision or touching assist (CGA). [place] provide cues , steadying assist 3 The helper provides less than half the effort to complete the activity 2 The helper provides more than half the effort to complete the activity 1 Dependent. The helper does all the effort to complete an activity 7 Patient refused to complete or attempt activity 9 The patient did not perform the activity before the current illness or injury 88 Not attempted due to Medical conditions or safety concerns Grooming (FIM): 6 (Sitting at sink, able to clean teeth, comb hair. Washed face and hands in shower) Bathing (FIM): 5 (Washed and dried all parts, setaed on shower bench, using grab bar, hand held shower,long handled sponge. Cues to not stand without back brace on. ) Upper Body (FIM): 5 (Doffed and donned shirt with setup) Lower Body Dressing (FIM): 4 (Dressing stick used to don pants, take socks off. A little help needed to pull pants up over hips. FWW) Toileting (FIM): 5 (SBA to manage clothing and hygiene. Cue to pull pants down enough. BSC over toilet) Toilet/Commode Transfer (FIM): 5 (SBA getting on and off BSC over toilet) Education OT Patient Education: Progress toward Goal/Update tx plan, Purpose of tx/ functional activities, Safety issues, Transfer techniques Teaching Recipient: Patient Teaching Methods: Discussion Response to Teaching: Verbalize Understanding, Return Demonstration, Reinforcement Needed OT Short Term Goals Short Term Goals Time Frame: Feb 06, 2018 Eating(FIM): 5 Grooming(FIM): 5 Bathing(FIM): 4 Upper Body Dressing(FIM): 4 Lower Body Dressing(FIM): 4 Toileting(FIM): 4 Transfers (B,C,W/C) (FIM): 4 Toilet/Commode Transfer(FIM): 4 Shower Transfer(FIM): 4 Additional Short Term Goals: 1-Demonstrate ADL Tasks, 2-Verbalize Understanding , 3-ImproveStrength/Lotus 1=Demonstrate adherence to instructed precautions during ADL tasks. 2=Patient will verbalize/demonstrate understanding of assistive devices/ modifications for ADL. 3=Patient will improve strength/tolerance for activity to enable patient to perform ADL's. OT Shade Hanger Goals Skilled Nursing Goals Time Frame: Feb 20, 2018 Eating (FIM): 6 Eating (QC): 6 Groomin Oral Hygiene (QC): 6 Bathing(FIM): 5 Shower/Bathe Self (QC): 5 Upper Body Dressing(FIM): 6 Upper Body Dressing (QC): 6 Lower Body Dressing(FIM): 6 Lower Body Dressing (QC): 6 On/Off Footwear (QC): 6 Toileting(FIM): 6 Toileting Hygiene (QC): 6 Transfers (B,C,W/C) (FIM): 6 Toilet/Commode Transfer(FIM): 6 Toilet/Commode Transfer (QC): 6 Shower Transfer(FIM): 5 Additional Goals: 1-Demonstrate ADL Tasks, 2-Verbalize Understanding, 3- ImproveStrength/Lotus 1=Demonstrate adherence to instructed precautions during ADL tasks. 2=Patient will verbalize/demonstrate understanding of assistive devices/ modifications for ADL. 3=Patient will improve strength/tolerance for activity to enable patient to perform ADL's. OT Education/Plan Discharge Recommendations Plan/Recommendations: Continue POC Treatment Plan/Plan of Care Patient would benefit from OT for education, treatment and training to promote independence in ADL's, mobility, safety and/or upper extremity function for ADL' s. Plan of Care: ADL Retraining, Functional Mobility, UE Funct Exercise/Act Treatment Duration: Feb 20, 2018 Frequency: 5 times per week Estimated Hrs Per Day: 1.5 hours per day Agreement: Yes Rehab Potential: Good Time/GCodes Start Time: 10:30 Stop Time: 11:30 Total Time Billed (hr/min): 60 Billed Treatment Time visit, 60 minutes ADL MARLENY MARLEY OT Feb 05, 2018 11:50
--- NOTE | 2018-02-05 15:13 | Therapy Group Daily Note ---
Therapy Daily Group Note Patient Education Topic Other List Below (fatigue, energy conservation) Exercises LE Seated Exercise, UE Exercise Other/Notes Pt ambulated using FWW with SBA to OT/PT group in [facility]. Group consisted of introductions (name, place, what do you do for fun at home), socialization, pt led UE/LE seated exercises, education on fatigue and energy conservation. Pt introduced self appropriately and actively listened to peers. Pt communicated with peers and assisted hard of hearing pt's when needed. Pt was able to lead exercises and tolerated other exercises well. Peer asked questions about what others thought about success and how to live a long life. Pt was able to answer question and discussed with peers. After therapy, pt sitting in recliner with call light/phone in reach. All needs met. Start Time: 13:00 Stop Time: 14:05 Total Billed Treatment Time: 65 Total Billed Treatment 1-GRP DANIELLE JIMÉNEZ Feb 05, 2018 15:13
[2018-02-05] MEDS: inSUlin DETERMIR 1 UNIT/0.01 ML (LEVEMIR) CHARGE PER UNIT SQ SCH (16:53)
[2018-02-05 18:00] VITALS: BP 144/78
[2018-02-05] MEDS: SIMvastatin 10 MG (ZOCOR) TAB PO SCH (20:44)
[2018-02-05] MEDS: metFORMIN XR 500 MG (GLUCOPHAGE XR) TAB PO SCH (20:44)
[2018-02-05] MEDS: TEMAZEPAM 15 MG (RESTORIL) CAP PO PRN (20:45)
[2018-02-06] MEDS: HYDROcodone/APAP 5 MG/325 MG (LORTAB) TAB PO PRN ×6 (01:59→21:23)
[2018-02-06 05:13] VITALS: BP 124/81
[2018-02-06] MEDS: inSUlin ASPART (NovoLOG) 1 UNIT/0.01 ML (CHARGE PER UNIT) SC SCH ×4 (06:03→20:25)
[2018-02-06] MEDS: AUGMENTIN 875 MG TAB (AMOXICILLIN/CLAVULANATE) PO SCH (06:03)
[2018-02-06] MEDS: MULTIVIT W/MINERALS TAB (THERAGRAN M) PO SCH (06:03)
[2018-02-06] MEDS: PREGABALIN 50 MG (LYRICA) CAP PO SCH ×2 (08:49→20:22)
[2018-02-06] MEDS: BISACODYL 5 MG (DULCOLAX) TABLET PO PRN ×2 (08:49→20:22)
[2018-02-06] MEDS: SENNOSIDES 8.6 MG (SENOKOT) TAB PO SCH ×2 (08:49→20:22)
[2018-02-06] MEDS: DOCUSATE SODIUM 100 MG (COLACE) CAP PO SCH ×2 (08:52→20:22)
[2018-02-06 08:54] VITALS: BP 116/58
[2018-02-06] MEDS: lisINopril 5 MG (PRINIVIL) TABLET PO SCH (08:54)
--- NOTE | 2018-02-06 09:57 | Physical Therapy Daily Note ---
PT Daily Note-Current Subjective Pt. initially states she is having more problems with pain all through her LEs and abdomen and doesnt want to work but agrees to with much encouragement. Pain Numeric Pain Scale: 5-Moderate Pain Location: Medial Location Body Site: Back Pain Description: Ache Mental Status Patient Orientation: Person, Place, Time, Situation Attachments: Other-See Comments (back brace with max assist to leona) Transfers Functional [place] Measure 0=Not Assessed/NA 4=Minimal Assistance 1=Total Assistance 5=Supervision or Setup 2=Maximal Assistance 6=Modified [place] 3=Moderate Assistance 7=Complete IndependenceIRFPAI Quality Coding Scale 6 Independent with activity with or without an assistive device 5 Patient requires set up or clean up by helper. Patient completes activity by themselves 4 Supervision or touching assist (CGA). [place] provide cues , steadying assist 3 The helper provides less than half the effort to complete the activity 2 The helper provides more than half the effort to complete the activity 1 Dependent. The helper does all the effort to complete an activity 7 Patient refused to complete or attempt activity 9 The patient did not perform the activity before the current illness or injury 88 Not attempted due to Medical conditions or safety concerns Transfers (B, C, W/C) (FIM): 5 Scootin Rollin Supine to/from Sit: 5 Sit to/from Stand: 5 Bed to/from Chair: 5 Weight Bearing Right Lower Extremity: Right Weight Bearing/Tolerated Left Lower Extremity: Left Weight Bearing/Tolerated Gait Training Does the Patient Walk?: Yes Gait (FIM): 5 Distance (FIM): 3=150 ft (150,75x2) Gait Level of Assist: 5 Gait Persons Needed: 1 Gait Assistive Device: FWW slow, flexed over FWW , heavy wt bearing Exercises Supine Ex: Bridging (2-3 for bed mobility), Ankle pumps, Quad Set, Rolling, Glut sets, Heel Slides, Short Arc Quads, Scooting, Hip abd/add Supine Reps: 15 Seated Therapy Exercises: Ankle pumps, Long arc quads, Hip abd/add Seated Reps: 12 Standing: Marching NuStep Minutes: 8 NuStep Workload: 3 Assessment Current Status: Good Progress PT Short Term Goals Short Term Goals Time Frame: Feb 06, 2018 Transfers (B,C,W/C) (FIM): 4 Gait (FIM): 2 Gait Distance Comment: 50' Gait Level of Assist: 4 Gait Assistive Device: FWW PT Mcfp Goals Mcfp Goals PT Mcfp Goals Time Frame: Feb 20, 2018 Transfers (B,C,W/C) (FIM): 5 Sit to Lying (QC): 4 Lying-Sitting on Side/Bed(QC): 4 Sit to Stand (QC): 4 Rollin Roll Left to Right (QC): 4 Chair/Kma-uz-Etgfk Xfer(QC): 4 Car Transfer (QC): 4 Gait (FIM): 5 Distance: 150' Walk 10 feet (QC): 4 Walk 10ft-Uneven Surface(QC): 4 Walk 50ft with 2 Turns (QC): 4 Walk 150 ft (QC): 4 Gait Level of Assist: 5 Gait Assistive Device: FWW Stairs (FIM): 2 # of Steps: 4 1 Step (curb) (QC): 4 4 Steps (QC): 4 12 Steps (QC): 4 Stairs Level Of Assist: 5 PT Plan Treatment/Plan Treatment Plan: Continue Plan of Care Treatment Plan: Bed Mobility, Concurrent Therapy, Education, Functional Activity Lotus, Functional Strength, Group Therapy, Gait, Safety, Therapeutic Exercise, Transfers Treatment Duration: Feb 20, 2018 Frequency: At least 5 of 7 days/Wk (IRF) Estimated Hrs Per Day: 1.5 hours per day Patient and/or Family Agrees t: Yes Safety Risks/Education Patient Education: Gait Training, Transfer Techniques, Correct Positioning, Disease Process, Safety Issues Teaching Recipient: Patient Teaching Methods: Demonstration, Discussion Response to Teaching: Verbalize Understanding, Return Demonstration, Reinforcement Needed Time/GCodes Time In: 900 Time Out: 1000 Total Billed Treatment Time: 60 Total Billed Treatment 1,EX20m,FA25m,GT15m G Codes Necessary: PRETTY Blanc GROUP DIRECTOR EXPERIENCE Feb 06, 2018 09:57
--- NOTE | 2018-02-06 10:09 | Progress Note-Hospitalist ---
Subjective HPI/CC On Admission Date Seen by Provider: Feb 06, 2018 Time Seen by Provider: 09:15 Subjective/Events-last exam Pt denies dyspnea or chest pain Pt approved Dr Vasquez to see her She had seen [facility] in the past where she lived but did not complete the workup Checked meds and labs. Review of Systems General: Malaise Objective Exam Vital Signs Vital Signs Date Time Temp Pulse Resp B/P (MAP) Pulse Ox O2 Delivery O2 Flow Rate FiO2 02/06/18 10:14 Room Air 02/06/18 08:54 88 116/58 (77) 02/06/18 05:13 97.8 21 96 Capillary Refill : General Appearance: No Apparent Distress, WD/WN Respiratory: Lungs Clear, Normal Breath Sounds Cardiovascular: Regular Rate, Rhythm, Systolic Murmur Neurologic/Psychiatric: Alert, Oriented x3, No Motor/Sensory Deficits, Normal Mood/Affect Results/Procedures Lab Patient resulted labs reviewed. Assessment/Plan Assessment and Plan Assess & Plan/Chief Complaint Assessment: Debility following lumbar spine surgery Cardiac murmur of severe aortic stenosis consulting Cardiology Plan: Monitor blood pressure Monitor labs Continue physical therapy Consult Dr Vasquez Diagnosis/Problems Diagnosis/Problems (1) Debility Status: Acute (2) Spinal stenosis, lumbar region, with neurogenic claudication Status: Resolved (3) IDDM (insulin dependent diabetes mellitus) Status: Chronic (4) Aortic stenosis, severe Status: Chronic Assessment & Plan: Consult Cardiology Clinical Quality Measures DVT/VTE Risk/Contraindication: Risk Factor Score Per Nursin RFS Level Per Nursing on Admit: 4+=Very High SEEMA LEI DO Feb 06, 2018 10:09
--- NOTE | 2018-02-06 10:52 | PM & R (SOAP) Progress Note ---
Subjective This was a face to face visit with the patient. Date Seen by Provider: Feb 06, 2018 Time Seen by Provider: 07:50 Subjective/Events-last exam Patient was seen in her room this AM Doing better C/O spasms discussed with RN will RX Objective Physician Exam Last Set of Vital Signs Vital Signs Date Time Temp Pulse Resp B/P (MAP) Pulse Ox O2 Delivery O2 Flow Rate FiO2 02/06/18 10:14 Room Air 02/06/18 08:54 88 116/58 (77) 02/06/18 05:13 97.8 21 96 Capillary Refill : I&O Intake and Output 02/06/18 00:00 Intake Total 1650 ml Balance 1650 ml Intake Oral 1650 ml # Voids 8 General: No Acute Distress HEENT: Atraumatic Neck: Supple, No JVD Lungs: Other (even and unlabored) Heart: Regular Rate Abdomen: Normal Bowel Sounds, Soft, No Tenderness, Other (Abdominal corset in place) Extremities: Other (Trace edeam in ankles) Skin: Other (Has ROBIN drain and Indwelling Sanchez catheter to DD) Neuro: Normal Speech, Normal Tone, Cranial Nerves 3-12 NL Psych/Mental Status: Mental Status NL, Mood NL Results Lab Data Laboratory Tests 02/03/18 12:00: Glucometer 252H 02/03/18 16:51: Glucometer 233H 02/03/18 20:46: Glucometer 306H 02/04/18 04:38: Glucometer 104 02/04/18 06:25: White Blood Count 2.8L, Red Blood Count 2.45L, Hemoglobin 8.4L, Hematocrit 25L, Mean Corpuscular Volume 101H, Mean Corpuscular Hemoglobin 34, Mean Corpuscular Hemoglobin Concent 34, Red Cell Distribution Width 14.9H, Platelet Count 163, Mean Platelet Volume 10.5H, Neutrophils (%) (Auto) 61, Lymphocytes (%) (Auto) 31 , Monocytes (%) (Auto) 5, Eosinophils (%) (Auto) 3, Basophils (%) (Auto) 0, Neutrophils # (Auto) 1.7L, Lymphocytes # (Auto) 0.9L, Monocytes # (Auto) 0.1, Eosinophils # (Auto) 0.1, Basophils # (Auto) 0.0 02/04/18 11:21: Glucometer 223H 02/04/18 15:54: Glucometer 306H 02/04/18 22:00: Glucometer 254H 02/05/18 04:37: Glucometer 120H 02/05/18 11:00: Glucometer 252H 02/05/18 15:43: Glucometer 235H 02/05/18 20:29: Glucometer 286H 02/06/18 02:34: Glucometer 170H 02/06/18 05:48: Glucometer 152H Assessment/Plan Assessment and Plan Lumbar spinal stenosis s/p decompression Postop anmeia stable Postop atelectasis improved DM controlled Hx of multiple falls 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
--- NOTE | 2018-02-06 10:54 | Occupational Ther Daily Note ---
OT Current Status-Daily Note Subjective Pt seen in room, up in bed, agreeable to OT. No pain mentioned. Mental Status/Objective Functional [place] Measure 0=Not Assessed/NA 4=Minimal Assistance 1=Total Assistance 5=Supervision or Setup 2=Maximal Assistance 6=Modified [place] 3=Moderate Assistance 7=Complete [place] ADL-Treatment She was able to move from supine to sit EOB, with HOB elevated. back brace applied and she was able to get up from bed and walk with SBA, FWW to bathroom. She sat in chair to groom without assistance. After ADLs completed, she propelled w/c to gym (to strengthen arms). Functional [place] Measure 0=Not Assessed/NA 4=Minimal Assistance 1=Total Assistance 5=Supervision or Setup 2=Maximal Assistance 6=Modified [place] 3=Moderate Assistance 7=Complete IndependenceIRFPAI Quality Coding Scale 6 Independent with activity with or without an assistive device 5 Patient requires set up or clean up by helper. Patient completes activity by themselves 4 Supervision or touching assist (CGA). [place] provide cues , steadying assist 3 The helper provides less than half the effort to complete the activity 2 The helper provides more than half the effort to complete the activity 1 Dependent. The helper does all the effort to complete an activity 7 Patient refused to complete or attempt activity 9 The patient did not perform the activity before the current illness or injury 88 Not attempted due to Medical conditions or safety concerns Other Treatment In gym, she completed 15 minutes bilat UE exercise on arm bike set at 20W resistance), taking only a couple brief recovery breaks. She also completed nuts and bolts and graded clothespins with 1# weight on each arm, to strengthen them for ADLs. She mentioned that activities done while reaching forward were at times uncomfortable on her back so they were modified. She propelled w/c back to her room, walked SBA, FWW to bed and was able to get both legs into bed without help. She also was able to unfasten back brace herself. Pt left up in bed, 4 rails up, all needs met. Education OT Patient Education: Progress toward Goal/Update tx plan, Purpose of tx/ functional activities, Safety issues Teaching Recipient: Patient Teaching Methods: Discussion Response to Teaching: Verbalize Understanding, Return Demonstration OT Short Term Goals Short Term Goals Time Frame: Feb 06, 2018 Eating(FIM): 5 Grooming(FIM): 5 Bathing(FIM): 4 Upper Body Dressing(FIM): 4 Lower Body Dressing(FIM): 4 Toileting(FIM): 4 Transfers (B,C,W/C) (FIM): 4 Toilet/Commode Transfer(FIM): 4 Shower Transfer(FIM): 4 Additional Short Term Goals: 1-Demonstrate ADL Tasks, 2-Verbalize Understanding , 3-ImproveStrength/Lotus 1=Demonstrate adherence to instructed precautions during ADL tasks. 2=Patient will verbalize/demonstrate understanding of assistive devices/ modifications for ADL. 3=Patient will improve strength/tolerance for activity to enable patient to perform ADL's. OT Oral Surgery Technician Goals Detention Goals Time Frame: Feb 20, 2018 Eating (FIM): 6 Eating (QC): 6 Groomin Oral Hygiene (QC): 6 Bathing(FIM): 5 Shower/Bathe Self (QC): 5 Upper Body Dressing(FIM): 6 Upper Body Dressing (QC): 6 Lower Body Dressing(FIM): 6 Lower Body Dressing (QC): 6 On/Off Footwear (QC): 6 Toileting(FIM): 6 Toileting Hygiene (QC): 6 Transfers (B,C,W/C) (FIM): 6 Toilet/Commode Transfer(FIM): 6 Toilet/Commode Transfer (QC): 6 Shower Transfer(FIM): 5 Additional Goals: 1-Demonstrate ADL Tasks, 2-Verbalize Understanding, 3- ImproveStrength/Lotus 1=Demonstrate adherence to instructed precautions during ADL tasks. 2=Patient will verbalize/demonstrate understanding of assistive devices/ modifications for ADL. 3=Patient will improve strength/tolerance for activity to enable patient to perform ADL's. OT Education/Plan Discharge Recommendations Plan/Recommendations: Continue POC Treatment Plan/Plan of Care Patient would benefit from OT for education, treatment and training to promote independence in ADL's, mobility, safety and/or upper extremity function for ADL' s. Plan of Care: ADL Retraining, Functional Mobility, UE Funct Exercise/Act Treatment Duration: Feb 20, 2018 Frequency: 5 times per week Estimated Hrs Per Day: 1.5 hours per day Agreement: Yes Rehab Potential: Good Time/GCodes Start Time: 10:30 Stop Time: 11:30 Total Time Billed (hr/min): 60 Billed Treatment Time visit, 10 minutes ADL, 50 minutes exercise MARLENY MARLEY OT Feb 06, 2018 10:54
--- NOTE | 2018-02-06 14:18 | Occupational Ther Daily Note ---
OT Current Status-Daily Note Subjective Pt seen in room, up in bed, agreeable to OT. Said she feels much better this afternoon. Appearance Alert, cooperative Mental Status/Objective Functional [place] Measure 0=Not Assessed/NA 4=Minimal Assistance 1=Total Assistance 5=Supervision or Setup 2=Maximal Assistance 6=Modified [place] 3=Moderate Assistance 7=Complete [place] ADL-Treatment Pt was able to get up to sit EOB without help but struggling, with HOB elevated. Help needed to don brace. Sit to stand without help and walked to bathroom with FWW. Pt was able to get on/off BSC over toilet, SBA but needed cues to pull pants down before toileting and to get gown out of the way. She also wobbled a little when pulling her pants up but did not lose balance. Washed hands at sink with SBA, FWW and walked t commons area, with cues to get closer to walker. After exercise, she walked back to room, cues to get closer to walker and was able to get into recliner but did not wait until she was positioned and did not reach back with arms. Pt left up in recliner, all needs met. Functional [place] Measure 0=Not Assessed/NA 4=Minimal Assistance 1=Total Assistance 5=Supervision or Setup 2=Maximal Assistance 6=Modified [place] 3=Moderate Assistance 7=Complete IndependenceIRFPAI Quality Coding Scale 6 Independent with activity with or without an assistive device 5 Patient requires set up or clean up by helper. Patient completes activity by themselves 4 Supervision or touching assist (CGA). [place] provide cues , steadying assist 3 The helper provides less than half the effort to complete the activity 2 The helper provides more than half the effort to complete the activity 1 Dependent. The helper does all the effort to complete an activity 7 Patient refused to complete or attempt activity 9 The patient did not perform the activity before the current illness or injury 88 Not attempted due to Medical conditions or safety concerns Other Treatment Pt got in and out of chair with arms with cues for hand placement. Did 2 sets of exercises with exercise bar, working on shoulders, elbows and wrists. She did 10 reps at shoulders and 15 reps at elbows. To strengthen arms to help with ADLs and walking. Education OT Patient Education: Exercise program, Progress toward Goal/Update tx plan, Purpose of tx/functional activities, Safety issues, Transfer techniques Teaching Recipient: Patient Teaching Methods: Discussion Response to Teaching: Verbalize Understanding, Return Demonstration, Reinforcement Needed OT Short Term Goals Short Term Goals Time Frame: Feb 06, 2018 Eating(FIM): 5 Grooming(FIM): 5 Bathing(FIM): 4 Upper Body Dressing(FIM): 4 Lower Body Dressing(FIM): 4 Toileting(FIM): 4 Transfers (B,C,W/C) (FIM): 4 Toilet/Commode Transfer(FIM): 4 Shower Transfer(FIM): 4 Additional Short Term Goals: 1-Demonstrate ADL Tasks, 2-Verbalize Understanding , 3-ImproveStrength/Lotus 1=Demonstrate adherence to instructed precautions during ADL tasks. 2=Patient will verbalize/demonstrate understanding of assistive devices/ modifications for ADL. 3=Patient will improve strength/tolerance for activity to enable patient to perform ADL's. OT Alf Goals Mixer And Scaler Goals Time Frame: Feb 20, 2018 Eating (FIM): 6 Eating (QC): 6 Groomin Oral Hygiene (QC): 6 Bathing(FIM): 5 Shower/Bathe Self (QC): 5 Upper Body Dressing(FIM): 6 Upper Body Dressing (QC): 6 Lower Body Dressing(FIM): 6 Lower Body Dressing (QC): 6 On/Off Footwear (QC): 6 Toileting(FIM): 6 Toileting Hygiene (QC): 6 Transfers (B,C,W/C) (FIM): 6 Toilet/Commode Transfer(FIM): 6 Toilet/Commode Transfer (QC): 6 Shower Transfer(FIM): 5 Additional Goals: 1-Demonstrate ADL Tasks, 2-Verbalize Understanding, 3- ImproveStrength/Lotus 1=Demonstrate adherence to instructed precautions during ADL tasks. 2=Patient will verbalize/demonstrate understanding of assistive devices/ modifications for ADL. 3=Patient will improve strength/tolerance for activity to enable patient to perform ADL's. OT Education/Plan Discharge Recommendations Plan/Recommendations: Continue POC Treatment Plan/Plan of Care Patient would benefit from OT for education, treatment and training to promote independence in ADL's, mobility, safety and/or upper extremity function for ADL' s. Plan of Care: ADL Retraining, Functional Mobility, UE Funct Exercise/Act Treatment Duration: Feb 20, 2018 Frequency: 5 times per week Estimated Hrs Per Day: 1.5 hours per day Agreement: Yes Rehab Potential: Good Time/GCodes Start Time: 13:00 Stop Time: 13:30 Total Time Billed (hr/min): 30 Billed Treatment Time visit, 10 minutes ADL, 20 minutes exercise MARLENY MARLEY OT Feb 06, 2018 14:18
--- NOTE | 2018-02-06 14:34 | Physical Therapy Daily Note ---
PT Daily Note-Current Subjective Agreeable toPT. Reports she had a really good day yesterday but feels more tired today. Mental Status Patient Orientation: Person, Place, Time, Situation Transfers Functional [place] Measure 0=Not Assessed/NA 4=Minimal Assistance 1=Total Assistance 5=Supervision or Setup 2=Maximal Assistance 6=Modified [place] 3=Moderate Assistance 7=Complete IndependenceIRFPAI Quality Coding Scale 6 Independent with activity with or without an assistive device 5 Patient requires set up or clean up by helper. Patient completes activity by themselves 4 Supervision or touching assist (CGA). [place] provide cues , steadying assist 3 The helper provides less than half the effort to complete the activity 2 The helper provides more than half the effort to complete the activity 1 Dependent. The helper does all the effort to complete an activity 7 Patient refused to complete or attempt activity 9 The patient did not perform the activity before the current illness or injury 88 Not attempted due to Medical conditions or safety concerns Transfers (B, C, W/C) (FIM): 5 Supine to/from Sit: 5 Sit to Stand (QC): 5 SBA with all functional transfers. Weight Bearing Right Lower Extremity: Right Weight Bearing/Tolerated Left Lower Extremity: Left Weight Bearing/Tolerated Back brace on throughout treatment Gait Training Does the Patient Walk?: Yes Gait (FIM): 4 Distance (FIM): 3=150 ft Distance: 125 ft, 50 ft 175 ft Gait Assistive Device: FWW slow gait with decreased step length and decreased heel strike/toe off. Stair Training Stair Training: Handrails/: 1 handrail Stairs (FIM): 2 #of Steps: 4 4 Steps (QC): 4 Stairs: Pattern: Step to Pt holds one handrail with both hands, requires min assist for safety. Treatments Gait and stairs. In bed post treatment with needs met. Assessment Current Status: Good Progress Unsteady on stairs but no maria e LOB. PT Short Term Goals Short Term Goals Time Frame: Feb 06, 2018 Transfers (B,C,W/C) (FIM): 4 (met) Gait (FIM): 2 (met) Gait Distance Comment: 50' Gait Level of Assist: 4 Gait Assistive Device: FWW PT Usp Goals Mechanical Maintenance Supervisor Goals PT Usp Goals Time Frame: Feb 20, 2018 Transfers (B,C,W/C) (FIM): 5 Sit to Lying (QC): 4 Lying-Sitting on Side/Bed(QC): 4 Sit to Stand (QC): 4 Rollin Roll Left to Right (QC): 4 Chair/Zae-rt-Ijelv Xfer(QC): 4 Car Transfer (QC): 4 Gait (FIM): 5 Distance: 150' Walk 10 feet (QC): 4 Walk 10ft-Uneven Surface(QC): 4 Walk 50ft with 2 Turns (QC): 4 Walk 150 ft (QC): 4 Gait Level of Assist: 5 Gait Assistive Device: FWW Stairs (FIM): 2 # of Steps: 4 1 Step (curb) (QC): 4 4 Steps (QC): 4 12 Steps (QC): 4 Stairs Level Of Assist: 5 PT Plan Problem List Problem List: Activity Tolerance, Functional Strength, Safety, Balance, Gait, Transfer, Bed Mobility Treatment/Plan Treatment Plan: Continue Plan of Care Treatment Plan: Bed Mobility, Concurrent Therapy, Education, Functional Activity Lotus, Functional Strength, Group Therapy, Gait, Safety, Therapeutic Exercise, Transfers Treatment Duration: Feb 20, 2018 Frequency: At least 5 of 7 days/Wk (IRF) Estimated Hrs Per Day: 1.5 hours per day Patient and/or Family Agrees t: Yes Safety Risks/Education Patient Education: Steps Teaching Recipient: Patient Teaching Methods: Demonstration, Discussion Response to Teaching: Return Demonstration Time/GCodes Time In: 1400 Time Out: 1430 Total Billed Treatment Time: 30 Total Billed Treatment visit GT 30 DANIELLE GANT PT Feb 06, 2018 14:34
[2018-02-06 16:00] VITALS: BP 133/77
[2018-02-06] MEDS: inSUlin DETERMIR 1 UNIT/0.01 ML (LEVEMIR) CHARGE PER UNIT SQ SCH (17:20)
[2018-02-06] MEDS: metFORMIN XR 500 MG (GLUCOPHAGE XR) TAB PO SCH (20:22)
[2018-02-06] MEDS: TEMAZEPAM 15 MG (RESTORIL) CAP PO PRN (20:22)
[2018-02-06] MEDS: SIMvastatin 10 MG (ZOCOR) TAB PO SCH (20:22)
[2018-02-07] MEDS: HYDROcodone/APAP 5 MG/325 MG (LORTAB) TAB PO PRN ×3 (01:33→11:41)
[2018-02-07 05:22] VITALS: BP 147/83
[2018-02-07] MEDS: inSUlin ASPART (NovoLOG) 1 UNIT/0.01 ML (CHARGE PER UNIT) SC SCH ×4 (05:57→20:53)
[2018-02-07] MEDS: MULTIVIT W/MINERALS TAB (THERAGRAN M) PO SCH (05:58)
[2018-02-07] MEDS: PREGABALIN 50 MG (LYRICA) CAP PO SCH ×2 (08:57→20:16)
[2018-02-07] MEDS: BISACODYL 5 MG (DULCOLAX) TABLET PO PRN (08:57)
[2018-02-07] MEDS: DOCUSATE SODIUM 100 MG (COLACE) CAP PO SCH ×2 (08:57→20:16)
[2018-02-07] MEDS: lisINopril 5 MG (PRINIVIL) TABLET PO SCH (08:57)
[2018-02-07] MEDS: SENNOSIDES 8.6 MG (SENOKOT) TAB PO SCH ×2 (08:57→20:15)
--- NOTE | 2018-02-07 09:23 | PM & R (SOAP) Progress Note ---
Subjective This was a face to face visit with the patient. Date Seen by Provider: Feb 07, 2018 Time Seen by Provider: 08:00 Subjective/Events-last exam Patient was seen in her room this AM Patient states that she had a rerstless sleep due to pain will review HS meds.Patient SBA for transfers Review of Systems Musculoskeletal: back pain anxiety Objective Physician Exam Last Set of Vital Signs Vital Signs Date Time Temp Pulse Resp B/P (MAP) Pulse Ox O2 Delivery O2 Flow Rate FiO2 02/07/18 05:22 98.5 91 19 147/83 (104) 100 Room Air Capillary Refill : I&O Intake and Output 02/07/18 00:00 Intake Total 1090 ml Balance 1090 ml Intake Oral 1090 ml # Voids 6 # Bowel Movements 1 General: No Acute Distress HEENT: Atraumatic Neck: Supple, No JVD Lungs: Other (even and unlabored) Heart: Regular Rate Abdomen: Normal Bowel Sounds, Soft, No Tenderness, Other (Abdominal corset in place) Extremities: Other (Trace edeam in ankles) Skin: Other (Has ROBIN drain and Indwelling Sanchez catheter to DD) Neuro: Normal Speech, Normal Tone, Cranial Nerves 3-12 NL Psych/Mental Status: Mental Status NL, Mood NL Results Lab Data Laboratory Tests 02/04/18 11:21: Glucometer 223H 02/04/18 15:54: Glucometer 306H 02/04/18 22:00: Glucometer 254H 02/05/18 04:37: Glucometer 120H 02/05/18 11:00: Glucometer 252H 02/05/18 15:43: Glucometer 235H 02/05/18 20:29: Glucometer 286H 02/06/18 02:34: Glucometer 170H 02/06/18 05:48: Glucometer 152H 02/06/18 11:14: Glucometer 299H 02/06/18 16:32: Glucometer 265H 02/06/18 20:22: Glucometer 321H 02/07/18 05:53: Glucometer 207H Assessment/Plan Assessment and Plan Lumbar spinal stenosis s/p decompression Postop anemia stable Postop atelectasis improved DM controlled HX of multiple falls Previous CVA on CT HX of previous back surgery Obesity Chronic back pain Anxiety Postop constipation resolved Plan Continue PT/OT/Pain management Review current meds Discharge set tentatively for next week 02/13/18 Team Conference 02-11-18 (1) Spinal stenosis, lumbar region, with neurogenic claudication Status: Resolved Co-Morbidities that are continuing to impact the rehab process: (include details ) MARIO UNGER MD Feb 07, 2018 09:23
--- NOTE | 2018-02-07 09:24 | Consultation-Cardiology ---
HPI-Cardiology Cardiology Consultation Date of Consultation 02/07/18 Date of Admission Time Seen by Provider: 09:18 Indication: Aortic Stenosis HPI Mrs Frazier is 77 years old lady with history of hypertension, spinal stenosis, underwent surgery recently, had an echocardiogram showed severe aortic stenosis , she denied any chest pain, admit shortness of breath on exertion although her exercise abilities somewhat limited, had multiple syncopal episode and reporting labile blood pressure. She admitted having pedal edema. Currently still recovering from surgery, still having anemia, received one unit of packed RBCs on January 30. Postoperatively patient had aspiration pneumonia and transient delirium. Respiratory failure. Better at this time. Home Medications & Allergies Allergies: Coded Allergies: famotidine (Verified Allergy, Severe, HAIR LOSS, 01/04/17) NOTIFIED ON 01/02/17 TO MEDICAL RECORDS aspirin (Unverified Allergy, Unknown, 11/23/16) hydromorphone (Unverified Allergy, Unknown, 11/23/16) triazolam (Unverified Allergy, Unknown, 11/23/16) Uncoded Allergies: TAPE (Allergy, Mild, RASH, 11/23/16) Home Medication List Reviewed: Yes [id number] Hx Patient Social History Alcohol Use: Denies Use Recreational Drug Use: No 2nd Hand Smoke Exposure: Yes Recent Foreign Travel: No Recent Infectious Disease Expo: No Recent Hopitalizations: No Physical Abuse Screen: No Sexual Abuse: No Immunizations Up To Date Tetanus Booster (TDap): Unknown Date of Pneumonia Vaccine: Jun 12, 2014 Date of Influenza Vaccine: May 21, 2016 Past Medical History Past medical history as described below Family Medical History Significant Family History: CAD Over 55 Years Old, Diabetes, Hypertension Family History: Arthritis G8 SISTER Cardiovascular disease 19 MOTHER Diabetes mellitus 19 MOTHER G8 BROTHER Hypertension 19 MOTHER G8 BROTHER G8 BROTHER Myocardial infarction 19 MOTHER G8 BROTHER No Family History of: AIDS Abdominal aortic aneurysm Gordon's disease Alcoholism Alzheimer's disease Aphasia Asthma Cancer of mouth Cataracts Colon cancer Completed stroke Congenital disease Congenital heart disease Coronary thrombosis Cystic fibrosis Deafness or hearing loss Dementia Drug abuse Dysphasia Fibrocystic disease of breast Gastroenteritis Glaucoma Headache disorder Hypercholesterolemia Infertility Kidney disease Neoplasm Not obtainable due to adoption Osteoporosis Parkinson's disease Prostate cancer Psychosocial problem Respiratory disorder Seizure disorder Severe allergy Thyroid disease Tuberculosis Visual disorder Constitutional: see HPI, malaise, weakness EENTM: see HPI, no symptoms reported Respiratory: see HPI, dyspnea on exertion Cardiovascular: see HPI, syncope Gastrointestinal: no symptoms reported, see HPI Genitourinary: no symptoms reported, see HPI Musculoskeletal: see HPI, back pain, joint pain, muscle weakness Skin: no symptoms reported, see HPI Psychiatric/Neurological: No Symptoms Reported, See HPI Reviewed Test Results Reviewed Test Results Lab Laboratory Tests Test 02/06/18 11:14 02/06/18 16:32 02/06/18 20:22 02/07/18 05:53 Range/Units Glucometer 299 H 265 H 321 H 207 H 70-110 MG/DL Physical Exam Vital Signs Vital Signs - First Documented 02/01/18 05:07 Temp 98.8 Pulse 81 Resp 20 B/P (MAP) 126/76 (93) Pulse Ox 96 O2 Delivery Room Air Capillary Refill : General Appearance: No Apparent Distress, WD/WN Eyes: Bilateral Eye Normal Inspection, Bilateral Eye PERRL, Bilateral Eye EOMI HEENT: PERRL/EOMI, TMs Normal, Normal ENT Inspection, Pharynx Normal Neck: Full Range of Motion, Normal Inspection, Non Tender, Supple, Carotid Bruit Respiratory: Chest Non Tender, Lungs Clear, Normal Breath Sounds, No Accessory Muscle Use, No Respiratory Distress Cardiovascular: Regular Rate, Rhythm, No Edema, No Gallop, No JVD, Normal Peripheral Pulses, Systolic Murmur (aortic stenosis) Gastrointestinal: Normal Bowel Sounds, No Organomegaly, No Pulsatile Mass, Non Tender, Soft Back: Normal Inspection, No CVA Tenderness, No Vertebral Tenderness Extremity: Normal Capillary Refill, Normal Inspection, Normal Range of Motion, Non Tender, No Calf Tenderness, No Pedal Edema Neurologic/Psychiatric: Alert, Oriented x3, No Motor/Sensory Deficits, Normal Mood/Affect Skin: Normal Color, Warm/Dry Lymphatic: No Adenopathy A/P-Cardiology Admission Diagnosis Severe aortic stenosis Syncope Hypertension Lumbar stenosis Assessment/Plan Severe aortic stenosis, noted incidentally, reporting history of syncope with labile hypertension, patient will need evaluation for possible valve replacement , at this time continue with physical therapy until she recovered from her recent surgery. Syncope, probably secondary to aortic stenosis, labile blood pressure, continue to monitor blood pressure closely. Hypertension, continue current medications and monitor blood pressure Diabetes mellitus. Managed and followed by primary care physician Multiple risk factors for coronary artery disease, patient was scheduled for stress test about 5 years ago but did not have it done. She will need to have coronary angiogram prior to her valve surgery. Spinal stenosis, peripheral neuropathy, debility, status post surgery, receiving physical therapy. Anemia postoperatively, received one unit of packed RBCs on January 30, 2018, monitored and managed by primary care physician Status post aspiration pneumonia, recovered, managed by primary care team Delirium, improved at this time. Continue to monitor mental status Clinical Quality Measures DVT/VTE Risk/Contraindication: Risk Factor Score Per Nursin RFS Level Per Nursing on Admit: 4+=Very High ELAINE MACKEY MD Feb 07, 2018 09:24
--- NOTE | 2018-02-07 10:01 | Physical Therapy Daily Note ---
PT Daily Note-Current Subjective Pt. states she didnt sleep well last night but agrees to Rx. Pain in back at 4/ 10 with TRFs and fgait, 0/10 at rest Pain Numeric Pain Scale: 4 Location: Medial Location Body Site: Back Pain Description: Ache Mental Status Attachments: Other-See Comments (back brace) Transfers Functional [place] Measure 0=Not Assessed/NA 4=Minimal Assistance 1=Total Assistance 5=Supervision or Setup 2=Maximal Assistance 6=Modified [place] 3=Moderate Assistance 7=Complete IndependenceIRFPAI Quality Coding Scale 6 Independent with activity with or without an assistive device 5 Patient requires set up or clean up by helper. Patient completes activity by themselves 4 Supervision or touching assist (CGA). [place] provide cues , steadying assist 3 The helper provides less than half the effort to complete the activity 2 The helper provides more than half the effort to complete the activity 1 Dependent. The helper does all the effort to complete an activity 7 Patient refused to complete or attempt activity 9 The patient did not perform the activity before the current illness or injury 88 Not attempted due to Medical conditions or safety concerns Transfers (B, C, W/C) (FIM): 5 Scootin Rollin Supine to/from Sit: 5 Sit to/from Stand: 6 Weight Bearing Right Lower Extremity: Right Weight Bearing/Tolerated Left Lower Extremity: Left Weight Bearing/Tolerated Back brace on throughout treatment Gait Training Does the Patient Walk?: Yes Gait (FIM): 5 Distance (FIM): 3=150 ft (x2) Gait Level of Assist: 5 Gait Persons Needed: 1 Gait Assistive Device: FWW Exercises Supine Ex: Ankle pumps, Quad Set, Rolling, Glut sets, Heel Slides, Short Arc Quads, Scooting, Hip abd/add Supine Reps: 15 NuStep Minutes: 12 NuStep Workload: 3 Assessment Current Status: Good Progress PT Short Term Goals Short Term Goals Time Frame: Feb 06, 2018 Transfers (B,C,W/C) (FIM): 4 (met) Gait (FIM): 2 (met) Gait Distance Comment: 50' Gait Level of Assist: 4 Gait Assistive Device: FWW PT Quarry Equipment Operator Goals Long-Term Goals PT Quarry Equipment Operator Goals Time Frame: Feb 20, 2018 Transfers (B,C,W/C) (FIM): 5 Sit to Lying (QC): 4 Lying-Sitting on Side/Bed(QC): 4 Sit to Stand (QC): 4 Rollin Roll Left to Right (QC): 4 Chair/Fbk-ye-Nyvky Xfer(QC): 4 Car Transfer (QC): 4 Gait (FIM): 5 Distance: 150' Walk 10 feet (QC): 4 Walk 10ft-Uneven Surface(QC): 4 Walk 50ft with 2 Turns (QC): 4 Walk 150 ft (QC): 4 Gait Level of Assist: 5 Gait Assistive Device: FWW Stairs (FIM): 2 # of Steps: 4 1 Step (curb) (QC): 4 4 Steps (QC): 4 12 Steps (QC): 4 Stairs Level Of Assist: 5 PT Plan Treatment/Plan Treatment Plan: Continue Plan of Care Treatment Plan: Bed Mobility, Concurrent Therapy, Education, Functional Activity Lotus, Functional Strength, Group Therapy, Gait, Safety, Therapeutic Exercise, Transfers Treatment Duration: Feb 20, 2018 Frequency: At least 5 of 7 days/Wk (IRF) Estimated Hrs Per Day: 1.5 hours per day Patient and/or Family Agrees t: Yes Safety Risks/Education Patient Education: Gait Training, Transfer Techniques, Correct Positioning, Safety Issues Teaching Recipient: Patient Teaching Methods: Demonstration, Discussion Response to Teaching: Verbalize Understanding, Return Demonstration, Reinforcement Needed Time/GCodes Time In: 900 Time Out: 1000 Total Billed Treatment Time: 60 Total Billed Treatment 1,FA25m,EX20m,GT15m G Codes Necessary: PRETTY Blanc TALENT ACQUISITION RELATIONSHIP MANAGER Feb 07, 2018 10:01
--- NOTE | 2018-02-07 11:49 | Occupational Ther Daily Note ---
OT Current Status-Daily Note Subjective Pt seen in room, up in bed, agreeable to OT. Pt said she had pain all over, "even my hair hurts." Appearance Alert, cooperative Mental Status/Objective Functional [place] Measure 0=Not Assessed/NA 4=Minimal Assistance 1=Total Assistance 5=Supervision or Setup 2=Maximal Assistance 6=Modified [place] 3=Moderate Assistance 7=Complete [place] ADL-Treatment She was able to move to sit EOB, with HOB raised. Dressings covered prior to shower and back brace applied. She walked SBA to bathroom and was able to get on /off BSC over toilet without help. She did need skilled cues to pull pants down far enough to toilet. She walked to shower and was able to get in/out and off/ on shower bench by herself, using grab bar and FWW. She was able to take back brace off and put it back on, with pt educ on where to grasp velcro. She was able to wash and dry all parts while seated but needed supervision to remind her not to stand without her back brace on. She dressed upper body with setup and lower body with min assist to get pants up over hips. She used dressing stick to get socks off and pants on. She walked to w/c and completed grooming at sink. She needed to toilet again and was able to manage clothing and hygiene after BM. She walked back to room with SBA, FWW and got into recliner for lunch. pt left up in recliner, all needs met. Functional [place] Measure 0=Not Assessed/NA 4=Minimal Assistance 1=Total Assistance 5=Supervision or Setup 2=Maximal Assistance 6=Modified [place] 3=Moderate Assistance 7=Complete IndependenceIRFPAI Quality Coding Scale 6 Independent with activity with or without an assistive device 5 Patient requires set up or clean up by helper. Patient completes activity by themselves 4 Supervision or touching assist (CGA). [place] provide cues , steadying assist 3 The helper provides less than half the effort to complete the activity 2 The helper provides more than half the effort to complete the activity 1 Dependent. The helper does all the effort to complete an activity 7 Patient refused to complete or attempt activity 9 The patient did not perform the activity before the current illness or injury 88 Not attempted due to Medical conditions or safety concerns Grooming (FIM): 6 (W/c level for grooming at sink. ) Bathing (FIM): 5 (Supervision for not standing during shower. washed and dried all parts, shower bench, grab bar, hand held shower, long handled sponge. Pt educ on technique to dry lower legs) Upper Body (FIM): 5 (setup. Put shirt on backwards and was able to self correct ) Lower Body Dressing (FIM): 4 (Min assist to get pants up over hips. Dressing stick. Used stick to take slipper socks off as well. FWW) Toileting (FIM): 5 (supervision, BSC over toilet) Toilet/Commode Transfer (FIM): 5 (SBA, once from standing and once from w/c. BSC over toilet, grab bar, FWW) Shower Transfer(FIM): 5 Education OT Patient Education: Modified ADL techniques, Purpose of tx/functional activities, Safety issues Teaching Recipient: Patient Teaching Methods: Discussion Response to Teaching: Verbalize Understanding, Return Demonstration, Reinforcement Needed OT Short Term Goals Short Term Goals Time Frame: Feb 06, 2018 Eating(FIM): 5 Grooming(FIM): 5 Bathing(FIM): 4 Upper Body Dressing(FIM): 4 Lower Body Dressing(FIM): 4 Toileting(FIM): 4 Transfers (B,C,W/C) (FIM): 4 (met) Toilet/Commode Transfer(FIM): 4 Shower Transfer(FIM): 4 Additional Short Term Goals: 1-Demonstrate ADL Tasks, 2-Verbalize Understanding , 3-ImproveStrength/[place]otus 1=Demonstrate adherence to instructed precautions during ADL tasks. 2=Patient will verbalize/demonstrate understanding of assistive devices/ modifications for ADL. 3=Patient will improve strength/tolerance for activity to enable patient to perform ADL's. OT Halfway Goals News Videotape Editor Goals Time Frame: Feb 20, 2018 Eating (FIM): 6 Eating (QC): 6 Groomin Oral Hygiene (QC): 6 Bathing(FIM): 5 Shower/Bathe Self (QC): 5 Upper Body Dressing(FIM): 6 Upper Body Dressing (QC): 6 Lower Body Dressing(FIM): 6 Lower Body Dressing (QC): 6 On/Off Footwear (QC): 6 Toileting(FIM): 6 Toileting Hygiene (QC): 6 Transfers (B,C,W/C) (FIM): 6 Toilet/Commode Transfer(FIM): 6 Toilet/Commode Transfer (QC): 6 Shower Transfer(FIM): 5 Additional Goals: 1-Demonstrate ADL Tasks, 2-Verbalize Understanding, 3- ImproveStrength/[place] 1=Demonstrate adherence to instructed precautions during ADL tasks. 2=Patient will verbalize/demonstrate understanding of assistive devices/ modifications for ADL. 3=Patient will improve strength/tolerance for activity to enable patient to perform ADL's. OT Education/Plan Discharge Recommendations Plan/Recommendations: Continue POC Treatment Plan/Plan of Care Patient would benefit from OT for education, treatment and training to promote independence in ADL's, mobility, safety and/or upper extremity function for ADL' s. Plan of Care: ADL Retraining, Functional Mobility, UE Funct Exercise/Act Treatment Duration: Feb 20, 2018 Frequency: 5 times per week Estimated Hrs Per Day: 1.5 hours per day Agreement: Yes Rehab Potential: Good Time/GCodes Start Time: 10:15 Stop Time: 11:20 Total Time Billed (hr/min): 65 Billed Treatment Time visit, 65 minutes ADL MARLENY MARLEY OT Feb 07, 2018 11:49
--- NOTE | 2018-02-07 14:49 | Therapy Group Daily Note ---
Therapy Daily Group Note Exercises Fine Motor, UE Exercise Other/Notes Pt ambulated using FWW to OT/PT group in [facility]. Group consisted of introductions (name, place living, fun story), socialization, dynamic sitting, fine motor and B UE activities. Pt introduced self appropriately and actively listened to peers. Pt contributed to conversations and began discussions with peers. Pt demonstrated good fine motor skills during activity by isolating small objects, manipulating with digits then placing in designated spot with UE extended against gravity. Pt was able to adhere to back precautions while strengthening core with dynamic sitting activities. After therapy, pt sitting in recliner with call light/phone in reach. All needs met in room. Start Time: 13:00 Stop Time: 14:00 Total Billed Treatment Time: 60 Total Billed Treatment 1-GRP DANIELLE JIMÉNEZ Feb 07, 2018 14:49
[2018-02-07] MEDS: HYDROcodone/APAP 10 MG/325 MG (LORTAB) TAB PO PRN ×2 (16:22→20:16)
[2018-02-07 16:42] VITALS: BP 119/73
[2018-02-07] MEDS: inSUlin DETERMIR 1 UNIT/0.01 ML (LEVEMIR) CHARGE PER UNIT SQ SCH (17:13)
[2018-02-07] MEDS: SIMvastatin 10 MG (ZOCOR) TAB PO SCH (20:16)
[2018-02-07] MEDS: traZODone 50 MG (DESYREL) TAB PO SCH (20:16)
[2018-02-07] MEDS: metFORMIN XR 500 MG (GLUCOPHAGE XR) TAB PO SCH (20:16)
[2018-02-07] MEDS: TEMAZEPAM 15 MG (RESTORIL) CAP PO PRN (22:54)
[2018-02-08] MEDS: MULTIVIT W/MINERALS TAB (THERAGRAN M) PO SCH (05:46)
[2018-02-08] MEDS: HYDROcodone/APAP 10 MG/325 MG (LORTAB) TAB PO PRN ×5 (05:47→23:04)
[2018-02-08] MEDS: inSUlin ASPART (NovoLOG) 1 UNIT/0.01 ML (CHARGE PER UNIT) SC SCH ×4 (06:05→21:16)
[2018-02-08 06:11] LABS: HEMOGLOBIN 8.7 G/DL (11.5-16.0); MEAN PLATELET VOLUME 10.2 FL (7.4-10.4); RED BLOOD COUNT 2.54 10^6/uL (4.35-5.85); RED CELL DISTRIBUTION WIDTH 15.1 % (10.0-14.5)
[2018-02-08 06:25] VITALS: BP 139/79
[2018-02-08 06:37] LABS: ALANINE AMINOTRANSFERASE 9 U/L (0-55); ALBUMIN 3.2 GM/DL (3.2-4.5); ALKALINE PHOSPHATASE 97 U/L (40-136); BILIRUBIN,TOTAL 0.3 MG/DL (0.1-1.0); BUN/CREATININE RATIO 36; CALCIUM 9.4 MG/DL (8.5-10.1); CARBON DIOXIDE 23 MMOL/L (21-32); CHLORIDE 106 MMOL/L (98-107); CHOLESTEROL 110 MG/DL (< 200); CREATININE SERUM 0.73 MG/DL (0.60-1.30); GFR ESTIMATED > 60; GLUCOSE 94 MG/DL (70-105); HDL CHOLESTEROL 43 MG/DL (40-60); POTASSIUM 4.8 MMOL/L (3.6-5.0); SODIUM 140 MMOL/L (135-145); TOTAL PROTEIN 6.2 GM/DL (6.4-8.2); TRIGLYCERIDES 79 MG/DL (<150); VLDL CHOLESTEROL 16 MG/DL (5-40)
[2018-02-08] MEDS: DOCUSATE SODIUM 100 MG (COLACE) CAP PO SCH ×2 (09:02→21:15)
[2018-02-08] MEDS: PREGABALIN 50 MG (LYRICA) CAP PO SCH ×2 (09:02→21:16)
[2018-02-08] MEDS: SENNOSIDES 8.6 MG (SENOKOT) TAB PO SCH ×2 (09:02→21:16)
[2018-02-08] MEDS: lisINopril 5 MG (PRINIVIL) TABLET PO SCH (09:02)
--- NOTE | 2018-02-08 09:13 | Physical Therapy Daily Note ---
PT Daily Note-Current Subjective Pt. agrees to Rx. States she had weird dreams last night. Pain Numeric Pain Scale: 2 Location: Medial Location Body Site: Back Pain Description: Ache Mental Status Attachments: Other-See Comments (back brace, max assist to don) Transfers Functional [place] Measure 0=Not Assessed/NA 4=Minimal Assistance 1=Total Assistance 5=Supervision or Setup 2=Maximal Assistance 6=Modified [place] 3=Moderate Assistance 7=Complete IndependenceIRFPAI Quality Coding Scale 6 Independent with activity with or without an assistive device 5 Patient requires set up or clean up by helper. Patient completes activity by themselves 4 Supervision or touching assist (CGA). [place] provide cues , steadying assist 3 The helper provides less than half the effort to complete the activity 2 The helper provides more than half the effort to complete the activity 1 Dependent. The helper does all the effort to complete an activity 7 Patient refused to complete or attempt activity 9 The patient did not perform the activity before the current illness or injury 88 Not attempted due to Medical conditions or safety concerns Transfers (B, C, W/C) (FIM): 4 Scootin Rollin Supine to/from Sit: 4 Sit to/from Stand: 6 pt. puts head of bed up to get up Weight Bearing Right Lower Extremity: Right Weight Bearing/Tolerated Left Lower Extremity: Left Weight Bearing/Tolerated Back brace on throughout treatment Gait Training Does the Patient Walk?: Yes Gait (FIM): 5 Distance (FIM): 3=150 ft (x2) Gait Level of Assist: 5 Gait Persons Needed: 1 Gait Assistive Device: FWW cues for safety and position in FWW Exercises Supine Ex: Ankle pumps, Quad Set, Rolling, Glut sets, Heel Slides, Short Arc Quads, Scooting, Hip abd/add Supine Reps: 15 Seated Therapy Exercises: Ankle pumps, Sit to stand, Long arc quads Seated Reps: 10 Assessment Current Status: Good Progress PT Short Term Goals Short Term Goals Time Frame: Feb 06, 2018 Transfers (B,C,W/C) (FIM): 4 (met) Gait (FIM): 2 (met) Gait Distance Comment: 50' Gait Level of Assist: 4 Gait Assistive Device: FWW PT Skilled Nursing Goals Skilled Nursing Goals PT Replenishment Analyst Goals Time Frame: Feb 20, 2018 Transfers (B,C,W/C) (FIM): 5 Sit to Lying (QC): 4 Lying-Sitting on Side/Bed(QC): 4 Sit to Stand (QC): 4 Rollin Roll Left to Right (QC): 4 Chair/Vnu-km-Xwoji Xfer(QC): 4 Car Transfer (QC): 4 Gait (FIM): 5 Distance: 150' Walk 10 feet (QC): 4 Walk 10ft-Uneven Surface(QC): 4 Walk 50ft with 2 Turns (QC): 4 Walk 150 ft (QC): 4 Gait Level of Assist: 5 Gait Assistive Device: FWW Stairs (FIM): 2 # of Steps: 4 1 Step (curb) (QC): 4 4 Steps (QC): 4 12 Steps (QC): 4 Stairs Level Of Assist: 5 PT Plan Treatment/Plan Treatment Plan: Continue Plan of Care Treatment Plan: Bed Mobility, Concurrent Therapy, Education, Functional Activity Lotus, Functional Strength, Group Therapy, Gait, Safety, Therapeutic Exercise, Transfers Treatment Duration: Feb 20, 2018 Frequency: At least 5 of 7 days/Wk (IRF) Estimated Hrs Per Day: 1.5 hours per day Patient and/or Family Agrees t: Yes Safety Risks/Education Patient Education: Gait Training, Transfer Techniques, Correct Positioning, Disease Process, Safety Issues Teaching Recipient: Patient Teaching Methods: Demonstration, Discussion Response to Teaching: Verbalize Understanding, Return Demonstration, Reinforcement Needed Time/GCodes Time In: 810 Time Out: 835 Total Billed Treatment Time: 25 Total Billed Treatment 1,EX10,FA15m G Codes Necessary: PRETTY Blanc RADIO OPERATOR Feb 08, 2018 09:13
--- NOTE | 2018-02-08 09:38 | PM & R (SOAP) Progress Note ---
Subjective This was a face to face visit with the patient. Date Seen by Provider: Feb 08, 2018 Time Seen by Provider: 08:00 Subjective/Events-last exam Patient was seen in her room this AM Patient Min assist for transfers Slept better last night Appreciate DR Malloy note and orders. Review of Systems Musculoskeletal: back pain anxiety Objective Physician Exam Last Set of Vital Signs Vital Signs Date Time Temp Pulse Resp B/P (MAP) Pulse Ox O2 Delivery O2 Flow Rate FiO2 02/08/18 06:25 98.5 84 18 139/79 (99) 100 Room Air Capillary Refill : I&O Intake and Output 02/08/18 00:00 Intake Total 1270 ml Balance 1270 ml Intake Oral 1270 ml # Voids 6 # Bowel Movements 1 General: No Acute Distress HEENT: Atraumatic Neck: Supple, No JVD Lungs: Other (even and unlabored) Heart: Regular Rate Abdomen: Normal Bowel Sounds, Soft, No Tenderness, Other (Abdominal corset in place) Extremities: Other (Trace edeam in ankles) Skin: Other (Has ROBIN drain and Indwelling Sanchez catheter to DD) Neuro: Normal Speech, Normal Tone, Cranial Nerves 3-12 NL Psych/Mental Status: Mental Status NL, Mood NL Results Lab Data Laboratory Tests 02/05/18 11:00: Glucometer 252H 02/05/18 15:43: Glucometer 235H 02/05/18 20:29: Glucometer 286H 02/06/18 02:34: Glucometer 170H 02/06/18 05:48: Glucometer 152H 02/06/18 11:14: Glucometer 299H 02/06/18 16:32: Glucometer 265H 02/06/18 20:22: Glucometer 321H 02/07/18 05:53: Glucometer 207H 02/07/18 11:03: Glucometer 162H 02/07/18 16:39: Glucometer 355H 02/07/18 20:33: Glucometer 251H 02/08/18 05:55: White Blood Count 4.0L, Red Blood Count 2.54L, Hemoglobin 8.7L, Hematocrit 26L, Mean Corpuscular Volume 102H, Mean Corpuscular Hemoglobin 34, Mean Corpuscular Hemoglobin Concent 34, Red Cell Distribution Width 15.1H, Platelet Count 229, Mean Platelet Volume 10.2, Sodium Level 140, Potassium Level 4.8, Chloride Level 106, Carbon Dioxide Level 23, Anion Gap 11, Blood Urea Nitrogen 26H, Creatinine 0.73, Estimat Glomerular Filtration Rate > 60, BUN/Creatinine Ratio 36, Glucose Level 94, Calcium Level 9.4, Total Bilirubin 0.3, Aspartate Amino Transf (AST/SGOT) 16, Alanine Aminotransferase (ALT/SGPT) 9, Alkaline Phosphatase 97, Total Protein 6.2L, Albumin 3.2, Triglycerides Level 79, Cholesterol Level 110, LDL Cholesterol Direct 49, VLDL Cholesterol 16, HDL Cholesterol 43 02/08/18 05:56: Glucometer 94 Assessment/Plan Assessment and Plan Lumbar spinal stenosis s/p decompression Postop anemia stable Postop atelectasis improved DM controlled Hx of multiple falls with hx of syncope Cardiology following Severe possibly causing syncope and falls 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
[2018-02-08] MEDS: inSUlin DETERMIR 1 UNIT/0.01 ML (LEVEMIR) CHARGE PER UNIT SQ SCH (15:48)
[2018-02-08 18:00] VITALS: BP 145/84
[2018-02-08] MEDS: SIMvastatin 10 MG (ZOCOR) TAB PO SCH (21:15)
[2018-02-08] MEDS: metFORMIN XR 500 MG (GLUCOPHAGE XR) TAB PO SCH (21:15)
[2018-02-08] MEDS: traZODone 50 MG (DESYREL) TAB PO SCH (21:16)
[2018-02-09] MEDS: TEMAZEPAM 15 MG (RESTORIL) CAP PO PRN ×2 (00:02→23:01)
[2018-02-09] MEDS: HYDROcodone/APAP 10 MG/325 MG (LORTAB) TAB PO PRN ×4 (04:26→21:52)
[2018-02-09 06:00] VITALS: BP 108/68
[2018-02-09] MEDS: inSUlin ASPART (NovoLOG) 1 UNIT/0.01 ML (CHARGE PER UNIT) SC SCH ×4 (06:00→21:53)
[2018-02-09] MEDS: ACETAMINOPHEN 325 MG TABLET PO PRN (06:42)
[2018-02-09] MEDS: MULTIVIT W/MINERALS TAB (THERAGRAN M) PO SCH (06:43)
[2018-02-09] MEDS: PREGABALIN 50 MG (LYRICA) CAP PO SCH ×2 (09:08→21:53)
[2018-02-09] MEDS: DOCUSATE SODIUM 100 MG (COLACE) CAP PO SCH ×2 (09:08→21:53)
[2018-02-09] MEDS: lisINopril 5 MG (PRINIVIL) TABLET PO SCH (09:08)
[2018-02-09] MEDS: SENNOSIDES 8.6 MG (SENOKOT) TAB PO SCH ×2 (09:08→21:52)
--- NOTE | 2018-02-09 11:24 | Cardiology Progress Note ---
Subjective Date Seen by Provider: Feb 09, 2018 Time Seen by Provider: 10:30 Subjective/Events-last exam Patient is laying down in bed, comfortable, denied any chest pain or shortness of breath. No palpitation Review of Systems General: No Chills, No Night Sweats, No Fatigue, No Malaise, No Appetite, No Other HEENT: No Head Aches, No Visual Changes, No Eye Pain, No Ear Pain, No Dysphasia , No Sinus Congestion, No Post Nasal Drip, No Sore Throat, No Other Pulmonary: No Dyspnea, No Cough, No Pleuritic Chest Pain, No Other Cardiovascular: No: Chest Pain, Palpitations, Orthopnea, Paroxysmal Noc. Dyspnea, Edema, Lt Headedness, Other Objective-Cardiology Exam Last Set of Vital Signs Vital Signs 02/09/18 06:00 Temp 96.6 Pulse 78 Resp 16 B/P (MAP) 108/68 (81) Pulse Ox 97 O2 Delivery Room Air Capillary Refill : I&O Intake and Output 02/09/18 00:00 Intake Total 1980 ml Balance 1980 ml Intake Oral 1980 ml # Voids 7 General: No Acute Distress HEENT: Atraumatic Neck: Supple, No JVD Lungs: Other (even and unlabored) Heart: Regular Rate, Normal S1, Normal S2, Other (aortic stenosis murmur) Abdomen: Normal Bowel Sounds, Soft, No Tenderness, Other (Abdominal corset in place) Extremities: No Clubbing, No Cyanosis, Other (Trace edeam in ankles) Skin: No Rashes, No Breakdown, Other (Has ROBIN drain and Indwelling Sanchez catheter to DD) Neuro: Normal Speech, Normal Tone, Cranial Nerves 3-12 NL Psych/Mental Status: Mental Status NL, Mood NL Results Lab Laboratory Tests Test 02/08/18 15:20 02/08/18 20:17 02/09/18 06:17 02/09/18 11:11 Range/Units Glucometer 242 H 281 H 184 H 205 H 70-110 MG/DL A/P-Cardiology Admission Diagnosis Severe aortic stenosis Syncope Hypertension Lumbar stenosis Assessment/Plan Severe aortic stenosis, noted incidentally, reporting history of syncope with labile hypertension, patient will need evaluation for possible valve replacement , at this time continue with physical therapy until she recovered from her recent surgery. History of Syncope, probably secondary to aortic stenosis, labile blood pressure , continue to monitor blood pressure, no changes at this time. Hypertension, I will try to avoid aggressive hypertension control due to the history of syncope, continue current medications and monitor blood pressure Hyperlipidemia, maintained on simvastatin, continue to monitor Diabetes mellitus. Managed and followed by primary care physician Multiple risk factors for coronary artery disease, patient was scheduled for stress test about 5 years ago but did not have it done. She will need to have coronary angiogram prior to her valve surgery. Spinal stenosis, peripheral neuropathy, debility, status post surgery, receiving physical therapy. Anemia postoperatively, received one unit of packed RBCs on January 30, 2018, monitored and managed by primary care physician Status post aspiration pneumonia, recovered, managed by primary care team Delirium, improved at this time. Continue to monitor mental status Clinical Quality Measures DVT/VTE Risk/Contraindication: Risk Factor Score Per Nursin RFS Level Per Nursing on Admit: 4+=Very High ELAINE MACKEY MD Feb 09, 2018 11:24
[2018-02-09] MEDS: inSUlin DETERMIR 1 UNIT/0.01 ML (LEVEMIR) CHARGE PER UNIT SQ SCH (16:50)
[2018-02-09 18:00] VITALS: BP 131/78
[2018-02-09] MEDS: traZODone 50 MG (DESYREL) TAB PO SCH (21:52)
[2018-02-09] MEDS: metFORMIN XR 500 MG (GLUCOPHAGE XR) TAB PO SCH (21:53)
[2018-02-09] MEDS: SIMvastatin 10 MG (ZOCOR) TAB PO SCH (21:53)
[2018-02-10] MEDS: HYDROcodone/APAP 10 MG/325 MG (LORTAB) TAB PO PRN ×4 (04:49→18:38)
[2018-02-10] MEDS: MULTIVIT W/MINERALS TAB (THERAGRAN M) PO SCH (04:51)
[2018-02-10] MEDS: inSUlin ASPART (NovoLOG) 1 UNIT/0.01 ML (CHARGE PER UNIT) SC SCH ×4 (05:00→21:24)
[2018-02-10 05:18] VITALS: BP 138/81
[2018-02-10] MEDS: PREGABALIN 50 MG (LYRICA) CAP PO SCH ×2 (08:31→21:20)
[2018-02-10] MEDS: DOCUSATE SODIUM 100 MG (COLACE) CAP PO SCH ×2 (08:31→21:20)
[2018-02-10] MEDS: SENNOSIDES 8.6 MG (SENOKOT) TAB PO SCH ×2 (08:31→21:20)
[2018-02-10] MEDS: lisINopril 5 MG (PRINIVIL) TABLET PO SCH (08:32)
[2018-02-10 08:33] VITALS: BP 102/65
--- NOTE | 2018-02-10 11:59 | Cardiology Progress Note ---
Subjective Date Seen by Provider: Feb 10, 2018 Time Seen by Provider: 11:57 Subjective/Events-last exam Patient is laying down and bed, complaining of pain. No chest pain. Review of Systems General: No Chills, No Night Sweats, No Fatigue, No Malaise, No Appetite, No Other HEENT: No Head Aches, No Visual Changes, No Eye Pain, No Ear Pain, No Dysphasia , No Sinus Congestion, No Post Nasal Drip, No Sore Throat, No Other Pulmonary: No Dyspnea, No Cough, No Pleuritic Chest Pain, No Other Cardiovascular: No: Chest Pain, Palpitations, Orthopnea, Paroxysmal Noc. Dyspnea, Edema, Lt Headedness, Other Objective-Cardiology Exam Last Set of Vital Signs Vital Signs 02/10/18 02/10/18 02/10/18 05:18 08:33 09:36 Temp 98.5 Pulse 83 Resp 18 B/P (MAP) 102/65 (77) Pulse Ox 96 O2 Delivery Room Air Capillary Refill : I&O Intake and Output 02/10/18 00:00 Intake Total 1190 ml Balance 1190 ml Intake Oral 1190 ml # Voids 6 # Bowel Movements 2 General: Alert, Oriented X3, No Acute Distress HEENT: Atraumatic Neck: Supple, No JVD Lungs: Clear to Auscultation, Normal Air Movement, Other (even and unlabored) Heart: Regular Rate, Normal S1, Normal S2, Other (aortic stenosis murmur) Abdomen: Normal Bowel Sounds, Soft, No Tenderness, Other (Abdominal corset in place) Extremities: No Clubbing, No Cyanosis, Other (Trace edeam in ankles) Skin: No Rashes, No Breakdown, Other (Has ROBIN drain and Indwelling Sanchez catheter to DD) Neuro: Normal Speech, Normal Tone, Cranial Nerves 3-12 NL Psych/Mental Status: Mental Status NL, Mood NL A/P-Cardiology Admission Diagnosis Severe aortic stenosis Syncope Hypertension Lumbar stenosis Assessment/Plan Severe aortic stenosis, noted incidentally, reporting history of syncope with labile hypertension, patient will need evaluation for possible valve replacement , at this time continue with physical therapy until she recovered from her recent surgery. History of Syncope, probably secondary to aortic stenosis, labile blood pressure , continue to monitor blood pressure, no changes at this time. Hypertension, I will try to avoid aggressive hypertension control due to the history of syncope, continue current medications and monitor blood pressure Hyperlipidemia, maintained on simvastatin, continue to monitor Diabetes mellitus. Managed and followed by primary care physician Multiple risk factors for coronary artery disease, patient was scheduled for stress test about 5 years ago but did not have it done. She will need to have coronary angiogram prior to her valve surgery. Spinal stenosis, peripheral neuropathy, debility, status post surgery, receiving physical therapy. Anemia postoperatively, received one unit of packed RBCs on January 30, 2018, monitored and managed by primary care physician Status post aspiration pneumonia, recovered, managed by primary care team Delirium, improved at this time. Continue to monitor mental status Please arrange for follow-up as an outpatient upon discharge Clinical Quality Measures DVT/VTE Risk/Contraindication: Risk Factor Score Per Nursin RFS Level Per Nursing on Admit: 4+=Very High ELAINE MACKEY MD Feb 10, 2018 11:59
--- NOTE | 2018-02-10 12:06 | Physical Therapy Daily Note ---
PT Daily Note-Current Subjective Pts daughter present for education and information about DC needs Pain Numeric Pain Scale: 3 Location: Medial Location Body Site: Back Pain Description: Ache Mental Status Patient Orientation: Normal For Age Transfers Functional [place] Measure 0=Not Assessed/NA 4=Minimal Assistance 1=Total Assistance 5=Supervision or Setup 2=Maximal Assistance 6=Modified [place] 3=Moderate Assistance 7=Complete IndependenceIRFPAI Quality Coding Scale 6 Independent with activity with or without an assistive device 5 Patient requires set up or clean up by helper. Patient completes activity by themselves 4 Supervision or touching assist (CGA). [place] provide cues , steadying assist 3 The helper provides less than half the effort to complete the activity 2 The helper provides more than half the effort to complete the activity 1 Dependent. The helper does all the effort to complete an activity 7 Patient refused to complete or attempt activity 9 The patient did not perform the activity before the current illness or injury 88 Not attempted due to Medical conditions or safety concerns Transfers (B, C, W/C) (FIM): 5 Scootin Rollin Supine to/from Sit: 5 Sit to/from Stand: 5 pt. utilizes bed rails and instruction for sup to sit Weight Bearing Right Lower Extremity: Right Weight Bearing/Tolerated Left Lower Extremity: Left Weight Bearing/Tolerated Back brace on throughout treatment Gait Training Does the Patient Walk?: Yes Gait (FIM): 5 Distance (FIM): 3=150 ft (x2) Gait Level of Assist: 5 Gait Persons Needed: 1 Gait Assistive Device: FWW slow this Stair Training Stair Training: Handrails/: 1 handrail (both hands) Stairs (FIM): 2 #of Steps: 4 Stairs: Pattern: Step to Level of Assist: 3 dtr instructed in safety on stairs and for gait Exercises Supine Ex: Ankle pumps, Quad Set, Rolling, Glut sets, Heel Slides, Short Arc Quads, Scooting, Hip abd/add Supine Reps: 10 (x2) Seated Therapy Exercises: Ankle pumps, Sit to stand, Long arc quads, Hip flexion Seated Reps: 15 NuStep Minutes: 10 NuStep Workload: 3 Assessment Current Status: Good Progress back pain decreases as pt. moves more with Rx PT Short Term Goals Short Term Goals Time Frame: Feb 06, 2018 Transfers (B,C,W/C) (FIM): 4 (met) Gait (FIM): 2 (met) Gait Distance Comment: 50' Gait Level of Assist: 4 Gait Assistive Device: FWW PT Snf Goals Snf Goals PT Snf Goals Time Frame: Feb 20, 2018 Transfers (B,C,W/C) (FIM): 5 Sit to Lying (QC): 4 Lying-Sitting on Side/Bed(QC): 4 Sit to Stand (QC): 4 Rollin Roll Left to Right (QC): 4 Chair/Uyu-od-Xvllh Xfer(QC): 4 Car Transfer (QC): 4 Gait (FIM): 5 Distance: 150' Walk 10 feet (QC): 4 Walk 10ft-Uneven Surface(QC): 4 Walk 50ft with 2 Turns (QC): 4 Walk 150 ft (QC): 4 Gait Level of Assist: 5 Gait Assistive Device: FWW Stairs (FIM): 2 # of Steps: 4 1 Step (curb) (QC): 4 4 Steps (QC): 4 12 Steps (QC): 4 Stairs Level Of Assist: 5 PT Plan Treatment/Plan Treatment Plan: Continue Plan of Care Treatment Plan: Bed Mobility, Concurrent Therapy, Education, Functional Activity Lotus, Functional Strength, Group Therapy, Gait, Safety, Therapeutic Exercise, Transfers Treatment Duration: Feb 20, 2018 Frequency: At least 5 of 7 days/Wk (IRF) Estimated Hrs Per Day: 1.5 hours per day Patient and/or Family Agrees t: Yes Safety Risks/Education Patient Education: Gait Training, Transfer Techniques, Steps, Correct Positioning, Disease Process, Safety Issues Teaching Recipient: Patient Teaching Methods: Demonstration, Discussion Response to Teaching: Verbalize Understanding, Return Demonstration, Reinforcement Needed Time/GCodes Time In: 1000 Time Out: 1100 Total Billed Treatment Time: 60 Total Billed Treatment 1,FA30m,EX15m,GT15m G Codes Necessary: PRETTY Blanc MACROECONOMICS PROFESSOR Feb 10, 2018 12:06
--- NOTE | 2018-02-10 13:48 | Occupational Ther Daily Note ---
OT Current Status-Daily Note Subjective Pt seen in room, up in bed, agreeable to OT. Pt reported pain and was given meds by RN. Appearance Asleep but easily awakened. Alert, cooperative, decreased safety awareness at times Mental Status/Objective Functional [place] Measure 0=Not Assessed/NA 4=Minimal Assistance 1=Total Assistance 5=Supervision or Setup 2=Maximal Assistance 6=Modified [place] 3=Moderate Assistance 7=Complete [place] ADL-Treatment Pt got up to EOB with cues, using HOB up and bedrail, struggling with push up. Help to put back brace on. She walked with SBA, FWW to bathroom to toilet, with skilled cues for clothing management (she sat on gown without pulling it up to toilet) but was able to manage hygiene and pants off/on. BSC over toilet. Walked with FWW to w/c to do sponge bath at sink. She washed and dried luis parts , with supervision when standing, balancing at countertop and completed grooming tasks. She walked with FWW to bed to dress, cues to check w/c before getting up because she did not lock brakes. Used dressing stick to get pants off /on. Pt educ use of sock aid to don socks, with return demo. Pt was unable to get back brace on/off herself. Pt educ hand placement for sit to stand from EOB. Walked to w/c, cues for hand placement, and propelled w/c to gym. Discussed equipment with patient's daughter - BSC over toilet, hip kit, sock aid. Pt has shower chair at home. Discussed safety concerns/supervision, with daughter's verbal agreement. Daughter to stay with her 6 weeks. Functional [place] Measure 0=Not Assessed/NA 4=Minimal Assistance 1=Total Assistance 5=Supervision or Setup 2=Maximal Assistance 6=Modified [place] 3=Moderate Assistance 7=Complete IndependenceIRFPAI Quality Coding Scale 6 Independent with activity with or without an assistive device 5 Patient requires set up or clean up by helper. Patient completes activity by themselves 4 Supervision or touching assist (CGA). [place] provide cues , steadying assist 3 The helper provides less than half the effort to complete the activity 2 The helper provides more than half the effort to complete the activity 1 Dependent. The helper does all the effort to complete an activity 7 Patient refused to complete or attempt activity 9 The patient did not perform the activity before the current illness or injury 88 Not attempted due to Medical conditions or safety concerns Grooming (FIM): 6 Bathing (FIM): 5 Upper Body (FIM): 5 Lower Body Dressing (FIM): 4 (Socks) Toileting (FIM): 5 Toilet/Commode Transfer (FIM): 5 Other Treatment Pt did 10 minutes bilat UE exercise with arm bike set at 20W resistance, to strengthen arms to help with getting up and down. Worked at steady pace. Care transferred to PT. Education OT Patient Education: Instructions to caregiver, Modified ADL techniques, Progress toward Goal/Update tx plan, Purpose of tx/functional activities, Reviewed precautions, Safety issues, Transfer techniques, Use of adapted equipment Teaching Recipient: Patient, Family Teaching Methods: Demonstration, Discussion Response to Teaching: Verbalize Understanding, Return Demonstration, Reinforcement Needed OT Short Term Goals Short Term Goals Time Frame: Feb 06, 2018 Eating(FIM): 5 Grooming(FIM): 5 Bathing(FIM): 4 Upper Body Dressing(FIM): 4 Lower Body Dressing(FIM): 4 Toileting(FIM): 4 Transfers (B,C,W/C) (FIM): 4 (met) Toilet/Commode Transfer(FIM): 4 Shower Transfer(FIM): 4 Additional Short Term Goals: 1-Demonstrate ADL Tasks, 2-Verbalize Understanding , 3-ImproveStrength/[place] 1=Demonstrate adherence to instructed precautions during ADL tasks. 2=Patient will verbalize/demonstrate understanding of assistive devices/ modifications for ADL. 3=Patient will improve strength/tolerance for activity to enable patient to perform ADL's. OT Alf Goals Alf Goals Time Frame: Feb 20, 2018 Eating (FIM): 6 Eating (QC): 6 Groomin Oral Hygiene (QC): 6 Bathing(FIM): 5 Shower/Bathe Self (QC): 5 Upper Body Dressing(FIM): 6 Upper Body Dressing (QC): 6 Lower Body Dressing(FIM): 6 Lower Body Dressing (QC): 6 On/Off Footwear (QC): 6 Toileting(FIM): 6 Toileting Hygiene (QC): 6 Transfers (B,C,W/C) (FIM): 6 Toilet/Commode Transfer(FIM): 6 Toilet/Commode Transfer (QC): 6 Shower Transfer(FIM): 5 Additional Goals: 1-Demonstrate ADL Tasks, 2-Verbalize Understanding, 3- ImproveStrength/[place] 1=Demonstrate adherence to instructed precautions during ADL tasks. 2=Patient will verbalize/demonstrate understanding of assistive devices/ modifications for ADL. 3=Patient will improve strength/tolerance for activity to enable patient to perform ADL's. OT Education/Plan Discharge Recommendations Plan/Recommendations: Continue POC Treatment Plan/Plan of Care Patient would benefit from OT for education, treatment and training to promote independence in ADL's, mobility, safety and/or upper extremity function for ADL' s. Plan of Care: ADL Retraining, Functional Mobility, UE Funct Exercise/Act Treatment Duration: Feb 20, 2018 Frequency: 5 times per week Estimated Hrs Per Day: 1.5 hours per day Agreement: Yes Rehab Potential: Good Time/GCodes Start Time: 08:55 Stop Time: 10:00 Total Time Billed (hr/min): 65 Billed Treatment Time visit, 50 minutes ADL, 15 minutes exercise MARLENY MARLEY OT Feb 10, 2018 13:48
--- NOTE | 2018-02-10 14:28 | Therapy Group Daily Note ---
Therapy Daily Group Note Patient Education Topic Other List Below (importanc eof memory and strategies to enhance it) Exercises LE Seated Exercise, UE Exercise Other/Notes Pt. participated in group PT OT session this date. Pt. came and went with FWW and assist. Pt. was social, introduced herself and shared in all memory discussion and activities. Pts as a group established 5 things to remember by the end of the session . Pt. helped establish this and did remember parts of it well. Pt. also participated in visual memory game by matching images. Pt. participated in U&L extremity seated exercises. Pt back to room to bed with assist. Kendra at hand Start Time: 13:00 Stop Time: 14:10 Total Billed Treatment Time: 70 Total Billed Treatment 1,GRP PRETTY CRUZ FIBREGLASS LAY UP WORKER Feb 10, 2018 14:28
[2018-02-10] MEDS: inSUlin DETERMIR 1 UNIT/0.01 ML (LEVEMIR) CHARGE PER UNIT SQ SCH (16:02)
[2018-02-10 16:21] VITALS: BP 138/78
--- NOTE | 2018-02-10 19:29 | PM & R (SOAP) Progress Note ---
Subjective This was a face to face visit with the patient. Date Seen by Provider: Feb 10, 2018 Time Seen by Provider: 19:15 Subjective/Events-last exam Patient was seen in her room this evening Patient c/o pain in low back with radiation into anterior thighs and feels she is having insufficient pain control May need to be reimaged Will add small amout of tramodol to regimen.- See orders Review of Systems Musculoskeletal: back pain, leg pain anxiety Objective Physician Exam Last Set of Vital Signs Vital Signs Date Time Temp Pulse Resp B/P (MAP) Pulse Ox O2 Delivery O2 Flow Rate FiO2 02/10/18 16:21 98.5 73 18 138/78 (98) 100 Room Air Capillary Refill : I&O Intake and Output 02/09/18 23:59 Intake Total 1190 ml Balance 1190 ml Intake Oral 1190 ml # Voids 6 # Bowel Movements 2 General: Alert, Oriented X3, No Acute Distress HEENT: Atraumatic Neck: Supple, No JVD Lungs: Clear to Auscultation, Normal Air Movement, Other (even and unlabored) Heart: Regular Rate, Normal S1, Normal S2, Other (aortic stenosis murmur) Abdomen: Normal Bowel Sounds, Soft, No Tenderness, Other (Abdominal corset in place) Extremities: No Clubbing, No Cyanosis, Other (Trace edeam in ankles) Skin: No Rashes, No Breakdown, Other (Has ROBIN drain and Indwelling Sanchez catheter to DD) Neuro: Normal Speech, Normal Tone, Cranial Nerves 3-12 NL Psych/Mental Status: Mental Status NL, Mood NL Results Lab Data Laboratory Tests 02/07/18 20:33: Glucometer 251H 02/08/18 05:55: White Blood Count 4.0L, Red Blood Count 2.54L, Hemoglobin 8.7L, Hematocrit 26L, Mean Corpuscular Volume 102H, Mean Corpuscular Hemoglobin 34, Mean Corpuscular Hemoglobin Concent 34, Red Cell Distribution Width 15.1H, Platelet Count 229, Mean Platelet Volume 10.2, Sodium Level 140, Potassium Level 4.8, Chloride Level 106, Carbon Dioxide Level 23, Anion Gap 11, Blood Urea Nitrogen 26H, Creatinine 0.73, Estimat Glomerular Filtration Rate > 60, BUN/Creatinine Ratio 36, Glucose Level 94, Calcium Level 9.4, Total Bilirubin 0.3, Aspartate Amino Transf (AST/SGOT) 16, Alanine Aminotransferase (ALT/SGPT) 9, Alkaline Phosphatase 97, Total Protein 6.2L, Albumin 3.2, Triglycerides Level 79, Cholesterol Level 110, LDL Cholesterol Direct 49, VLDL Cholesterol 16, HDL Cholesterol 43 02/08/18 05:56: Glucometer 94 02/08/18 11:05: Glucometer 312H 02/08/18 15:20: Glucometer 242H 02/08/18 20:17: Glucometer 281H 02/09/18 06:17: Glucometer 184H 02/09/18 11:11: Glucometer 205H 02/09/18 16:37: Glucometer 331H 02/09/18 20:23: Glucometer 304H 02/10/18 04:40: Glucometer 179H 02/10/18 11:10: Glucometer 277H 02/10/18 15:59: Glucometer 311H Assessment/Plan Assessment and Plan Lumbar spinal stensosi s/p decompression Postop anemia stable Postop atelectasis improved DM controlled HX of multiple falls with hx of syncope possibly related to Severe Previous CVA on CT Hx of previous back surgery Obesity Chronic back pain Anxiety Postop constipation resolved Plan Continue PT/OT Pain management-see rders Consider reimaging Team Conference tomorrow (1) Spinal stenosis, lumbar region, with neurogenic claudication Status: Resolved Co-Morbidities that are continuing to impact the rehab process: (include details ) MARIO UNGER MD Feb 10, 2018 19:29
[2018-02-10] MEDS: metFORMIN XR 500 MG (GLUCOPHAGE XR) TAB PO SCH (21:19)
[2018-02-10] MEDS: traZODone 50 MG (DESYREL) TAB PO SCH (21:20)
[2018-02-10] MEDS: SIMvastatin 10 MG (ZOCOR) TAB PO SCH (21:20)
[2018-02-10] MEDS: TEMAZEPAM 15 MG (RESTORIL) CAP PO PRN (23:51)
[2018-02-10] MEDS: ACETAMINOPHEN 325 MG TABLET PO PRN (23:51)
[2018-02-11] MEDS ORDERED: fentaNYL PATCH 25 MCG (DURAGESIC) TD SCH (01:45)
[2018-02-11 05:43] VITALS: BP 146/78
[2018-02-11] MEDS: MULTIVIT W/MINERALS TAB (THERAGRAN M) PO SCH (06:35)
[2018-02-11] MEDS: inSUlin ASPART (NovoLOG) 1 UNIT/0.01 ML (CHARGE PER UNIT) SC SCH ×7 (06:37→21:41)
--- NOTE | 2018-02-11 07:47 | PM & R (SOAP) Progress Note ---
Subjective This was a face to face visit with the patient. Date Seen by Provider: Feb 11, 2018 Time Seen by Provider: 07:10 Subjective/Events-last exam Patient was seen in her room this AM Patient min assist for transfers.Discussed case with RN last evening and this AM Patient c/o excrutiating pain in low back and legs last nigth Low dose D Patch orderes with some relief-Will order Postop films and inform orthospine.see orders Review of Systems Musculoskeletal: back pain, leg pain anxiety Objective Physician Exam Last Set of Vital Signs Vital Signs Date Time Temp Pulse Resp B/P (MAP) Pulse Ox O2 Delivery O2 Flow Rate FiO2 02/11/18 05:43 97.7 77 20 146/78 (100) 97 Room Air Capillary Refill : I&O Intake and Output 02/11/18 00:00 Intake Total 1485 ml Balance 1485 ml Intake Oral 1485 ml # Voids 6 # Bowel Movements 2 General: Alert, Oriented X3, No Acute Distress HEENT: Atraumatic Neck: Supple, No JVD Lungs: Clear to Auscultation, Normal Air Movement, Other (even and unlabored) Heart: Regular Rate, Normal S1, Normal S2, Other (aortic stenosis murmur) Abdomen: Normal Bowel Sounds, Soft, No Tenderness, Other (Abdominal corset in place) Extremities: No Clubbing, No Cyanosis, Other (Trace edeam in ankles) Skin: No Rashes, No Breakdown, Other (Has ROBIN drain and Indwelling Sanchez catheter to DD) Neuro: Normal Speech, Normal Tone, Cranial Nerves 3-12 NL Psych/Mental Status: Mental Status NL, Mood NL Results Lab Data Laboratory Tests 02/08/18 11:05: Glucometer 312H 02/08/18 15:20: Glucometer 242H 02/08/18 20:17: Glucometer 281H 02/09/18 06:17: Glucometer 184H 02/09/18 11:11: Glucometer 205H 02/09/18 16:37: Glucometer 331H 02/09/18 20:23: Glucometer 304H 02/10/18 04:40: Glucometer 179H 02/10/18 11:10: Glucometer 277H 02/10/18 15:59: Glucometer 311H 02/10/18 21:19: Glucometer 295H 02/11/18 06:36: Glucometer 113H Assessment/Plan Assessment and Plan Lumbar spinal stenosis s/p decompression Worsening postop back and leg pain Postop anemia stable Postop constipation treated Paost op atelectasis improved DM controlled HX of multiple falls with HX of syncope cardiology following Severe Previous CVA on CTY HX of previous back surgery Obesity Chronic back pain Anxiety most likely amplifying pain perception Plan Continue PT/OT Check Films Inform orthospine of patients complaints Team Conference later today -see report foru full functional update and POC and ELOS Pain management (1) Spinal stenosis, lumbar region, with neurogenic claudication Status: Resolved Co-Morbidities that are continuing to impact the rehab process: (include details ) MARIO UNGER MD Feb 11, 2018 07:47
[2018-02-11] MEDS: SENNOSIDES 8.6 MG (SENOKOT) TAB PO SCH ×2 (08:01→21:28)
[2018-02-11] MEDS: PREGABALIN 50 MG (LYRICA) CAP PO SCH ×2 (08:01→21:28)
[2018-02-11] MEDS: DOCUSATE SODIUM 100 MG (COLACE) CAP PO SCH ×2 (08:01→21:28)
[2018-02-11] MEDS: lisINopril 5 MG (PRINIVIL) TABLET PO SCH (08:04)
[2018-02-11 08:05] VITALS: BP 126/76
--- NOTE | 2018-02-11 09:47 | Occupational Ther Daily Note ---
OT Current Status-Daily Note Subjective Pt seen in room, lying in bed, agreeable to OT. No pain reported - pt said that she go "a patch" for pain and it seemed to work. Appearance Alert but lethargic, cooperative, Mental Status/Objective Functional [place] Measure 0=Not Assessed/NA 4=Minimal Assistance 1=Total Assistance 5=Supervision or Setup 2=Maximal Assistance 6=Modified [place] 3=Moderate Assistance 7=Complete [place] ADL-Treatment Pt able to get up to supine but struggled. Able to doff/don back brace about 50% , with pt education. Walked to bathroom, FWW and toileted mod I, BSC over toilet. Transferred into shower with SBA, shower bench and bathed with setup, supervision. Walked to bed to dress, with reminders not to stand without back brace on. Pt educ use of sock aid and bale to get socks on. Pt transferred to w/ c and propelled self to commons area (UE strengthening), left at table with coffee and newspapers, per her request Functional [place] Measure 0=Not Assessed/NA 4=Minimal Assistance 1=Total Assistance 5=Supervision or Setup 2=Maximal Assistance 6=Modified [place] 3=Moderate Assistance 7=Complete IndependenceIRFPAI Quality Coding Scale 6 Independent with activity with or without an assistive device 5 Patient requires set up or clean up by helper. Patient completes activity by themselves 4 Supervision or touching assist (CGA). [place] provide cues , steadying assist 3 The helper provides less than half the effort to complete the activity 2 The helper provides more than half the effort to complete the activity 1 Dependent. The helper does all the effort to complete an activity 7 Patient refused to complete or attempt activity 9 The patient did not perform the activity before the current illness or injury 88 Not attempted due to Medical conditions or safety concerns Eating (FIM): 6 (Pt is able to open packages, cut of food, feed herself with no AD. has dentures) Eating (QC): 6 Grooming (FIM): 6 (Seated at sink, able to brush teeth and hair. Washed face and hands in shower) Oral Hygiene (QC): 6 Bathing (FIM): 5 (setup, supervision. Reminded at beginning of shower why she needs to do it sitting but then needed reminder as she started to stand without back brace on. Able to wash and dry all aprts. Shower bench, grab bars, hand held shower, long handled sponge) Shower/Bathe Self (QC): 4 (supervision) Upper Body (FIM): 6 (Retrieved clean clothes. Able to don bra and shirt. Mild safety concerns) Upper Body Dressing (QC): 6 Lower Body Dressing (FIM): 5 (Dressing stick and sock aid. Cues for use of dressing stick. Cues for hand placement for standing. Reminder not to get up without back brace on. FWW. Supervision) Lower Body Dressing (QC): 4 (supervision) On/Off Footwear (QC): 6 (Dressing stick, sock aid) Toileting (FIM): 6 (BSC over toilet, FWW. Able to manage clothing and hygiene, with mild safety concerns) Toileting Hygiene (QC): 6 Toilet/Commode Transfer (FIM): 6 (On/off BSC over toilet, with FWW, grab bar.Mild safety concerns) Toilet Transfer (QC): 6 Shower Transfer(FIM): 5 (SBA, getting in and out of shower, on/off shower bench. Grab bars, FWW) Education OT Patient Education: Modified ADL techniques, Progress toward Goal/Update tx plan, Purpose of tx/functional activities, Safety issues, Transfer techniques, Use of adapted equipment Teaching Recipient: Patient Teaching Methods: Demonstration, Discussion Response to Teaching: Verbalize Understanding, Return Demonstration, Reinforcement Needed OT Short Term Goals Short Term Goals Time Frame: Feb 06, 2018 Eating(FIM): 5 Grooming(FIM): 5 Bathing(FIM): 4 Upper Body Dressing(FIM): 4 Lower Body Dressing(FIM): 4 Toileting(FIM): 4 Transfers (B,C,W/C) (FIM): 4 (met) Toilet/Commode Transfer(FIM): 4 Shower Transfer(FIM): 4 Additional Short Term Goals: 1-Demonstrate ADL Tasks, 2-Verbalize Understanding , 3-ImproveStrength/[place] 1=Demonstrate adherence to instructed precautions during ADL tasks. 2=Patient will verbalize/demonstrate understanding of assistive devices/ modifications for ADL. 3=Patient will improve strength/tolerance for activity to enable patient to perform ADL's. OT Immigration Consultant Goals Alf Goals Time Frame: Feb 20, 2018 Eating (FIM): 6 Eating (QC): 6 Groomin Oral Hygiene (QC): 6 Bathing(FIM): 5 Shower/Bathe Self (QC): 5 Upper Body Dressing(FIM): 6 Upper Body Dressing (QC): 6 Lower Body Dressing(FIM): 6 Lower Body Dressing (QC): 6 On/Off Footwear (QC): 6 Toileting(FIM): 6 Toileting Hygiene (QC): 6 Transfers (B,C,W/C) (FIM): 6 Toilet/Commode Transfer(FIM): 6 Toilet/Commode Transfer (QC): 6 Shower Transfer(FIM): 5 Additional Goals: 1-Demonstrate ADL Tasks, 2-Verbalize Understanding, 3- ImproveStrength/Lotus 1=Demonstrate adherence to instructed precautions during ADL tasks. 2=Patient will verbalize/demonstrate understanding of assistive devices/ modifications for ADL. 3=Patient will improve strength/tolerance for activity to enable patient to perform ADL's. OT Education/Plan Discharge Recommendations Plan/Recommendations: Continue POC Treatment Plan/Plan of Care Patient would benefit from OT for education, treatment and training to promote independence in ADL's, mobility, safety and/or upper extremity function for ADL' s. Plan of Care: ADL Retraining, Functional Mobility, UE Funct Exercise/Act Treatment Duration: Feb 20, 2018 Frequency: 5 times per week Estimated Hrs Per Day: 1.5 hours per day Agreement: Yes Rehab Potential: Good Time/GCodes Start Time: 08:30 Stop Time: 09:30 Total Time Billed (hr/min): 60 Billed Treatment Time visit, 55 minutes ADL, 5 minutes exercise MARLENY MARLEY OT Feb 11, 2018 09:47
--- NOTE | 2018-02-11 11:05 | Physical Therapy Daily Note ---
PT Daily Note-Current Subjective Pt sitting at table in [facility] upon arrival. Pt agrees to PT but wants something for pain in back. Checked with Nurse and pt had pain patch & given muscle relaxer and pain med so pt cannot have another right now. Pain Numeric Pain Scale: 9 Location: Lower Location Body Site: Back Pain Description: Pressure Mental Status Patient Orientation: Person, Place Attachments: Other-See Comments (Lumbar back brace) Transfers Functional [place] Measure 0=Not Assessed/NA 4=Minimal Assistance 1=Total Assistance 5=Supervision or Setup 2=Maximal Assistance 6=Modified [place] 3=Moderate Assistance 7=Complete IndependenceIRFPAI Quality Coding Scale 6 Independent with activity with or without an assistive device 5 Patient requires set up or clean up by helper. Patient completes activity by themselves 4 Supervision or touching assist (CGA). [place] provide cues , steadying assist 3 The helper provides less than half the effort to complete the activity 2 The helper provides more than half the effort to complete the activity 1 Dependent. The helper does all the effort to complete an activity 7 Patient refused to complete or attempt activity 9 The patient did not perform the activity before the current illness or injury 88 Not attempted due to Medical conditions or safety concerns Transfers (B, C, W/C) (FIM): 5 Scootin Rollin Roll Left to Right (QC): 6 Supine to/from Sit: 5 Sit to/from Stand: 5 Sit to Lying (QC): 5 Sit to Stand (QC): 5 Chair/Fjl-wo-Tjkrh Xfer(QC): 5 Bed to/from Chair: 5 Car Transfer (QC): 5 Weight Bearing Right Lower Extremity: Right Weight Bearing/Tolerated Left Lower Extremity: Left Weight Bearing/Tolerated Back brace on throughout treatment Gait Training Does the Patient Walk?: Yes Distance (FIM): 3=150 ft Distance: 150' Walk 10 feet (QC): 5 Walk 50 ft with 2 Turns(QC): 5 Walk 150 ft (QC): 5 Walking 10ft/uneven surface-QC: 5 Gait Level of Assist: 5 Gait Persons Needed: 1 Gait Assistive Device: FWW Pt walks with slow timo and step to gait using FWW. Pt is encouraged to stay closer to FWW although pt doesn't continue to complete after VC. Wheelchair Training Does the Pt Use a Wheelchair?: Yes Wheelchair (FIM): 6 Wheelchair Distance: 3=150 ft Distance: 150' Wheelchair Level of Assist: 6 Wheel 50 ft with 2 turns (QC): 6 Wheel 150 ft (QC): 6 Type of Wheelchair: Manual Pt uses occasionally for longer distances. Stair Training Stair Training: Handrails/: 1 handrail Stairs (FIM): 2 #of Steps: 4 1 Step (curb) (QC): 4 4 Steps (QC): 4 Stairs: Pattern: Step to Level of Assist: 4 Balance Picking up an Object (QC): 88 Special Test Comments Pt doesn't complete due to back limitations. Exercises Seated Therapy Exercises: Ankle pumps, Long arc quads, Hip flexion, Hip abd/add Seated Reps: 15 Treatments Pt transfers at [facility] as well as ambulates in hallway using FWW at [facility]. Car transfers at [facility] with occasional VC for sequencing. Pt completes 4 steps using 1 hand rail, ambulates across varying surface for at least 10' using FWW at [facility]. Pt doesn't complete picking up object due to back limitations. Pt also completes bed mobility at [facility] and rests at end of tx with all needs met, including call light next to pt. Assessment Current Status: Good Progress Pt continues to gain strength and independence with tasks, although still confused at times so METAL DEALER stays at A. PT Short Term Goals Short Term Goals Time Frame: Feb 06, 2018 Transfers (B,C,W/C) (FIM): 4 (met) Gait (FIM): 2 (met) Gait Distance Comment: 50' Gait Level of Assist: 4 Gait Assistive Device: FWW PT Alf Goals Alf Goals PT Fermenter Goals Time Frame: Feb 20, 2018 Transfers (B,C,W/C) (FIM): 5 Sit to Lying (QC): 4 Lying-Sitting on Side/Bed(QC): 4 Sit to Stand (QC): 4 Rollin Roll Left to Right (QC): 4 Chair/Olz-rg-Gecat Xfer(QC): 4 Car Transfer (QC): 4 Gait (FIM): 5 Distance: 150' Walk 10 feet (QC): 4 Walk 10ft-Uneven Surface(QC): 4 Walk 50ft with 2 Turns (QC): 4 Walk 150 ft (QC): 4 Gait Level of Assist: 5 Gait Assistive Device: FWW Stairs (FIM): 2 # of Steps: 4 1 Step (curb) (QC): 4 4 Steps (QC): 4 12 Steps (QC): 4 Stairs Level Of Assist: 5 PT Plan Problem List Problem List: Activity Tolerance, Functional Strength, Safety, Balance, Gait Treatment/Plan Treatment Plan: Continue Plan of Care Treatment Plan: Bed Mobility, Concurrent Therapy, Education, Functional Activity Lotus, Functional Strength, Group Therapy, Gait, Safety, Therapeutic Exercise, Transfers Treatment Duration: Feb 20, 2018 Frequency: At least 5 of 7 days/Wk (IRF) Estimated Hrs Per Day: 1.5 hours per day Patient and/or Family Agrees t: Yes Safety Risks/Education Patient Education: Gait Training, Transfer Techniques, Steps, Correct Positioning, Safety Issues Teaching Recipient: Patient Teaching Methods: Discussion Response to Teaching: Verbalize Understanding Time/GCodes Time In: 1000 Time Out: 1100 Total Billed Treatment Time: 60 Total Billed Treatment 1, GT (15m), FA x2 (30m) & EX (15m) G Codes Necessary: CADEN Marina PTA Feb 11, 2018 11:05
--- NOTE | 2018-02-11 12:22 | Diagnostic Imaging Report ---
EXAMINATION: Lumbar spine at 0846 hours. INDICATION: Back pain. TECHNIQUE: AP, lateral, and spot lateral views were obtained. FINDINGS: The recent lumbar spine exam of 01/28/2018 noted post operative changes, consistent with a fusion of L3 through S1. There is also a disc prosthesis at the L5-S1 level. Those findings are again evident. The orthopedic hardware appears stable. The skin opal noted on the prior study are also again visualized and no different. The previous study also revealed post kyphoplasty changes involving L2 as well as a long-standing compression deformity of the superior endplate of T12. Those findings are no different as well. There is no fracture or acute bony abnormality appreciated. There is no sign of a paraspinal mass. IMPRESSION: The appearance of the lumbar spine is stable when compared with the prior exam. The orthopedic hardware remains unchanged in position and there is no acute bony abnormality appreciated. Dictated by: Dictated on workstation # [id number]
--- NOTE | 2018-02-11 15:43 | Physical Therapy Daily Note ---
PT Daily Note-Current Subjective Pt sitting at table in [facility] upon arrival. Pt agrees to PT. Pt has concerns about her meds after discharge and finding a new doctor who will provide her current meds. Pt was preoccupied with this during beginning of tx, ROVING OR YARN COLOR CHECKER redirects. Pain Numeric Pain Scale: 9 Location: Lower Location Body Site: Back Pain Description: Ache Mental Status Patient Orientation: Person, Place Attachments: Other-See Comments (Lumbar back brace) Transfers Functional [place] Measure 0=Not Assessed/NA 4=Minimal Assistance 1=Total Assistance 5=Supervision or Setup 2=Maximal Assistance 6=Modified [place] 3=Moderate Assistance 7=Complete IndependenceIRFPAI Quality Coding Scale 6 Independent with activity with or without an assistive device 5 Patient requires set up or clean up by helper. Patient completes activity by themselves 4 Supervision or touching assist (CGA). [place] provide cues , steadying assist 3 The helper provides less than half the effort to complete the activity 2 The helper provides more than half the effort to complete the activity 1 Dependent. The helper does all the effort to complete an activity 7 Patient refused to complete or attempt activity 9 The patient did not perform the activity before the current illness or injury 88 Not attempted due to Medical conditions or safety concerns Scootin Rollin Roll Left to Right (QC): 5 Supine to/from Sit: 5 Sit to/from Stand: 5 Sit to Lying (QC): 5 Sit to Stand (QC): 5 Weight Bearing Right Lower Extremity: Right Weight Bearing/Tolerated Left Lower Extremity: Left Weight Bearing/Tolerated Back brace on throughout treatment Gait Training Does the Patient Walk?: Yes Distance (FIM): 3=150 ft Distance: 150' Walk 10 feet (QC): 5 Walk 50 ft with 2 Turns(QC): 5 Walk 150 ft (QC): 5 Gait Level of Assist: 5 Gait Persons Needed: 1 Gait Assistive Device: FWW Pt walks with slow timo & w/FWW out in front of pt. ROVING OR YARN COLOR CHECKER gives verbal cues to correct. Wheelchair Training Type of Wheelchair: Manual Stair Training Stair Training: Handrails/: 1 handrail #of Steps: 4 1 Step (curb) (QC): 4 4 Steps (QC): 4 Stairs: Pattern: Step to Level of Assist: 4 Treatments Pt transfers from Seated surface to standing using FWW at SBA. Pt ambulates in hallway using FWW at close SBA. Pt completes 4 step on staircase. Pt takes short rest before returning to room to rest Supine in bed. Pt transfers SBA and is resting at end of tx with all needs met, including call light next to pt. Assessment Current Status: Good Progress Pt is confused at times so ROVING OR YARN COLOR CHECKER stays close for support as needed. PT Short Term Goals Short Term Goals Time Frame: Feb 06, 2018 Transfers (B,C,W/C) (FIM): 4 (met) Gait (FIM): 2 (met) Gait Distance Comment: 50' Gait Level of Assist: 4 Gait Assistive Device: FWW PT Ux Manager Goals Senior Care Goals PT Senior Care Goals Time Frame: Feb 20, 2018 Transfers (B,C,W/C) (FIM): 5 Sit to Lying (QC): 4 Lying-Sitting on Side/Bed(QC): 4 Sit to Stand (QC): 4 Rollin Roll Left to Right (QC): 4 Chair/Vuz-bz-Qoxdq Xfer(QC): 4 Car Transfer (QC): 4 Gait (FIM): 5 Distance: 150' Walk 10 feet (QC): 4 Walk 10ft-Uneven Surface(QC): 4 Walk 50ft with 2 Turns (QC): 4 Walk 150 ft (QC): 4 Gait Level of Assist: 5 Gait Assistive Device: FWW Stairs (FIM): 2 # of Steps: 4 1 Step (curb) (QC): 4 4 Steps (QC): 4 12 Steps (QC): 4 Stairs Level Of Assist: 5 PT Plan Problem List Problem List: Activity Tolerance, Functional Strength, Safety, Balance, Gait Treatment/Plan Treatment Plan: Continue Plan of Care Treatment Plan: Bed Mobility, Concurrent Therapy, Education, Functional Activity Lotus, Functional Strength, Group Therapy, Gait, Safety, Therapeutic Exercise, Transfers Treatment Duration: Feb 20, 2018 Frequency: At least 5 of 7 days/Wk (IRF) Estimated Hrs Per Day: 1.5 hours per day Patient and/or Family Agrees t: Yes Safety Risks/Education Patient Education: Gait Training, Correct Positioning, Safety Issues Teaching Recipient: Patient Teaching Methods: Discussion Response to Teaching: Verbalize Understanding, Reinforcement Needed Time/GCodes Time In: 1430 Time Out: 1500 Total Billed Treatment Time: 30 Total Billed Treatment 1, GT (15m) & FA (15m) G Codes Necessary: CADEN Marina ROVING OR YARN COLOR CHECKER Feb 11, 2018 15:43
[2018-02-11 16:40] VITALS: BP 143/75
[2018-02-11] MEDS: inSUlin DETERMIR 1 UNIT/0.01 ML (LEVEMIR) CHARGE PER UNIT SQ SCH (16:43)
[2018-02-11] MEDS: traZODone 50 MG (DESYREL) TAB PO SCH (21:28)
[2018-02-11] MEDS: SIMvastatin 10 MG (ZOCOR) TAB PO SCH (21:28)
[2018-02-11] MEDS: metFORMIN XR 500 MG (GLUCOPHAGE XR) TAB PO SCH (21:28)
[2018-02-12] MEDS: TEMAZEPAM 15 MG (RESTORIL) CAP PO PRN (00:53)
[2018-02-12] MEDS: ACETAMINOPHEN 325 MG TABLET PO PRN (03:29)
[2018-02-12 05:13] VITALS: BP 136/80
[2018-02-12] MEDS: inSUlin ASPART (NovoLOG) 1 UNIT/0.01 ML (CHARGE PER UNIT) SC SCH ×7 (06:26→20:50)
[2018-02-12] MEDS: MULTIVIT W/MINERALS TAB (THERAGRAN M) PO SCH (06:27)
[2018-02-12] MEDS: lisINopril 5 MG (PRINIVIL) TABLET PO SCH (08:21)
[2018-02-12] MEDS: PREGABALIN 50 MG (LYRICA) CAP PO SCH ×2 (08:21→20:53)
[2018-02-12] MEDS: DOCUSATE SODIUM 100 MG (COLACE) CAP PO SCH ×2 (08:21→20:50)
[2018-02-12] MEDS: SENNOSIDES 8.6 MG (SENOKOT) TAB PO SCH ×2 (08:21→20:50)
--- NOTE | 2018-02-12 08:58 | PM & R (SOAP) Progress Note ---
Subjective This was a face to face visit with the patient. Date Seen by Provider: Feb 12, 2018 Time Seen by Provider: 07:50 Subjective/Events-last exam Patient was seen in her room this AM Patient SBA for transfers Patient set for discharge to home with daughter tomorrow Current meds reviewed Xray Lumbar spine OK Review of Systems Musculoskeletal: back pain anxiety Objective Physician Exam Last Set of Vital Signs Vital Signs Date Time Temp Pulse Resp B/P (MAP) Pulse Ox O2 Delivery O2 Flow Rate FiO2 02/12/18 08:28 Room Air 02/12/18 05:13 99.3 84 18 136/80 (98) 97 Capillary Refill : I&O Intake and Output 02/12/18 00:00 Intake Total 850 ml Balance 850 ml Intake Oral 850 ml # Voids 5 # Bowel Movements 1 General: Alert, Oriented X3, No Acute Distress HEENT: Atraumatic Neck: Supple, No JVD Lungs: Clear to Auscultation, Normal Air Movement, Other (even and unlabored) Heart: Regular Rate, Normal S1, Normal S2, Other (aortic stenosis murmur) Abdomen: Normal Bowel Sounds, Soft, No Tenderness, Other (Abdominal corset in place) Extremities: No Clubbing, No Cyanosis, Other (Trace edeam in ankles) Skin: No Rashes, No Breakdown, Other (Has ROBIN drain and Indwelling Sanchez catheter to DD) Neuro: Normal Speech, Normal Tone, Cranial Nerves 3-12 NL Psych/Mental Status: Mental Status NL, Mood NL Results Lab Data Laboratory Tests 02/09/18 11:11: Glucometer 205H 02/09/18 16:37: Glucometer 331H 02/09/18 20:23: Glucometer 304H 02/10/18 04:40: Glucometer 179H 02/10/18 11:10: Glucometer 277H 02/10/18 15:59: Glucometer 311H 02/10/18 21:19: Glucometer 295H 02/11/18 06:36: Glucometer 113H 02/11/18 10:58: Glucometer 247H 02/11/18 15:36: Glucometer 137H 02/11/18 21:27: Glucometer 242H 02/12/18 06:24: Glucometer 101 Assessment/Plan Assessment and Plan Lumbar spinal stenosis s/p decompression Postop back pain meds adjusted Postop anemia stable Postop constipation treated Postop atelectasis resolved DM controlled Hx of multiple falls with HX of syncope cardiology following Severe Previous CVA on CT Hx of previous back surgery Obesity Chronic back pain Anxiety on med Plan Continue PT/OT Discharge to home tomoorow with Daughter and HHC F/U with PCP and Orthospine (1) Spinal stenosis, lumbar region, with neurogenic claudication Status: Resolved Co-Morbidities that are continuing to impact the rehab process: (include details ) MARIO UNGER MD Feb 12, 2018 08:58
[2018-02-12] MEDS ORDERED: TIZA4TAB3 PO (09:10)
[2018-02-12] MEDS ORDERED: TRAM50TA2 PO (09:10)
[2018-02-12] MEDS ORDERED: FENT1PAT8 TD (09:10)
[2018-02-12] MEDS ORDERED: TRAZ-189 PO (09:10)
--- NOTE | 2018-02-12 11:44 | Physical Therapy Daily Note ---
PT Daily Note-Current Subjective Pt. states "I know I didnt do very well aon the stairs last time they took me up and down and I dont know exactly why except that this hip is hurting me. " Rates pain at 6/10 brad with activity but also at rest Pain Numeric Pain Scale: 6 Location: Left Location Body Site: Hip Pain Description: Pressure Mental Status Patient Orientation: Person, Place, Time, Situation Attachments: Other-See Comments (back brace) Transfers Functional [place] Measure 0=Not Assessed/NA 4=Minimal Assistance 1=Total Assistance 5=Supervision or Setup 2=Maximal Assistance 6=Modified [place] 3=Moderate Assistance 7=Complete IndependenceIRFPAI Quality Coding Scale 6 Independent with activity with or without an assistive device 5 Patient requires set up or clean up by helper. Patient completes activity by themselves 4 Supervision or touching assist (CGA). [place] provide cues , steadying assist 3 The helper provides less than half the effort to complete the activity 2 The helper provides more than half the effort to complete the activity 1 Dependent. The helper does all the effort to complete an activity 7 Patient refused to complete or attempt activity 9 The patient did not perform the activity before the current illness or injury 88 Not attempted due to Medical conditions or safety concerns Transfers (B, C, W/C) (FIM): 6 Scootin Rollin Roll Left to Right (QC): 5 Supine to/from Sit: 6 (with rails to use) Sit to/from Stand: 6 Sit to Lying (QC): 5 Sit to Stand (QC): 5 Chair/Bwg-nf-Pobeb Xfer(QC): 5 Bed to/from Chair: 6 Car Transfer (QC): 5 Weight Bearing Right Lower Extremity: Right Weight Bearing/Tolerated Left Lower Extremity: Left Weight Bearing/Tolerated Back brace on throughout treatment Gait Training Does the Patient Walk?: Yes Gait (FIM): 6 Distance (FIM): 3=150 ft (170,150) Walk 10 feet (QC): 5 Walk 50 ft with 2 Turns(QC): 5 Walk 150 ft (QC): 5 Walking 10ft/uneven surface-QC: 5 Gait Level of Assist: 6 Gait Persons Needed: 0 Gait Assistive Device: FWW slow, flexed over FWW, Stair Training Stair Training: Handrails/: 1 handrail (both hands on one rail to simulate home) Stairs (FIM): 2 #of Steps: 4 1 Step (curb) (QC): 4 4 Steps (QC): 4 Stairs: Pattern: Step to Level of Assist: 3 needs instruction for sequence as well as min assist for balance and ascending Balance Special Test Comments unsafe to trial Exercises Supine Ex: Bridging, Ankle pumps, Quad Set, Rolling, Glut sets, Heel Slides, Short Arc Quads, Scooting, Straight leg raise (x3 only), Hip abd/add Supine Reps: 15 Seated Therapy Exercises: Ankle pumps, Sit to stand, Long arc quads, Hip flexion Seated Reps: 12 Assessment Current Status: Good Progress states she will have FT care of dtr for quite some time and family is acquiring hosp bed for home PT Short Term Goals Short Term Goals Time Frame: Feb 06, 2018 Transfers (B,C,W/C) (FIM): 4 (met) Gait (FIM): 2 (met) Gait Distance Comment: 50' Gait Level of Assist: 4 Gait Assistive Device: FWW Wheelchair Distance: 150' PT Cable Television Access Coordinator Goals [facility] Goals PT Cable Television Access Coordinator Goals Time Frame: Feb 20, 2018 Transfers (B,C,W/C) (FIM): 5 Sit to Lying (QC): 4 Lying-Sitting on Side/Bed(QC): 4 Sit to Stand (QC): 4 Rollin Roll Left to Right (QC): 4 Chair/Kpj-ix-Ymxlk Xfer(QC): 4 Car Transfer (QC): 4 Gait (FIM): 5 Distance: 150' Walk 10 feet (QC): 4 Walk 10ft-Uneven Surface(QC): 4 Walk 50ft with 2 Turns (QC): 4 Walk 150 ft (QC): 4 Gait Level of Assist: 5 Gait Assistive Device: FWW Stairs (FIM): 2 # of Steps: 4 1 Step (curb) (QC): 4 4 Steps (QC): 4 12 Steps (QC): 4 Stairs Level Of Assist: 5 PT Plan Treatment/Plan Treatment Plan: Continue Plan of Care Treatment Plan: Bed Mobility, Concurrent Therapy, Education, Functional Activity Oltus, Functional Strength, Group Therapy, Gait, Safety, Therapeutic Exercise, Transfers Treatment Duration: Feb 20, 2018 Frequency: At least 5 of 7 days/Wk (IRF) Estimated Hrs Per Day: 1.5 hours per day Patient and/or Family Agrees t: Yes Safety Risks/Education Patient Education: Gait Training, Transfer Techniques, Steps, Correct Positioning, Disease Process, Safety Issues Teaching Recipient: Patient Teaching Methods: Demonstration, Discussion Response to Teaching: Verbalize Understanding, Return Demonstration, Reinforcement Needed pt. is dependent for donning back brace Time/GCodes Time In: 1040 Time Out: 1140 Total Billed Treatment Time: 60 Total Billed Treatment 1,FA30m,GT15m,EX15m G Codes Necessary: PRETTY Blanc ELECTRICAL SYSTEMS DESIGN ENGINEER Feb 12, 2018 11:44
--- NOTE | 2018-02-12 12:39 | Occupational Ther Daily Note ---
OT Current Status-Daily Note Subjective late entry 02-11-18. Pt seen in room, up in bed, agreeable to OT. Appearance Alert, cooperative Mental Status/Objective Functional [place] Measure 0=Not Assessed/NA 4=Minimal Assistance 1=Total Assistance 5=Supervision or Setup 2=Maximal Assistance 6=Modified [place] 3=Moderate Assistance 7=Complete [place] ADL-Treatment Functional [place] Measure 0=Not Assessed/NA 4=Minimal Assistance 1=Total Assistance 5=Supervision or Setup 2=Maximal Assistance 6=Modified [place] 3=Moderate Assistance 7=Complete IndependenceIRFPAI Quality Coding Scale 6 Independent with activity with or without an assistive device 5 Patient requires set up or clean up by helper. Patient completes activity by themselves 4 Supervision or touching assist (CGA). [place] provide cues , steadying assist 3 The helper provides less than half the effort to complete the activity 2 The helper provides more than half the effort to complete the activity 1 Dependent. The helper does all the effort to complete an activity 7 Patient refused to complete or attempt activity 9 The patient did not perform the activity before the current illness or injury 88 Not attempted due to Medical conditions or safety concerns Other Treatment Pt needed assist to don back brace. walked to w/c with FWW and propelled w/c to gym herself. She did nuts and bolts activity with 1# weight on each arm, to strengthen arms to help with ADLs and transfers. She propelled w/c to commons area and was left up in w/c with book to read, per her request. Education OT Patient Education: Progress toward Goal/Update tx plan, Purpose of tx/ functional activities Teaching Recipient: Patient Teaching Methods: Discussion Response to Teaching: Verbalize Understanding, Return Demonstration OT Short Term Goals Short Term Goals Time Frame: Feb 06, 2018 Eating(FIM): 5 Grooming(FIM): 5 Bathing(FIM): 4 Upper Body Dressing(FIM): 4 Lower Body Dressing(FIM): 4 Toileting(FIM): 4 Transfers (B,C,W/C) (FIM): 4 (met) Toilet/Commode Transfer(FIM): 4 Shower Transfer(FIM): 4 Additional Short Term Goals: 1-Demonstrate ADL Tasks, 2-Verbalize Understanding , 3-ImproveStrength/Lotus 1=Demonstrate adherence to instructed precautions during ADL tasks. 2=Patient will verbalize/demonstrate understanding of assistive devices/ modifications for ADL. 3=Patient will improve strength/tolerance for activity to enable patient to perform ADL's. OT Skilled Nursing Goals Raisin Washer Goals Time Frame: Feb 20, 2018 Eating (FIM): 6 Eating (QC): 6 Groomin Oral Hygiene (QC): 6 Bathing(FIM): 5 Shower/Bathe Self (QC): 5 Upper Body Dressing(FIM): 6 Upper Body Dressing (QC): 6 Lower Body Dressing(FIM): 6 Lower Body Dressing (QC): 6 On/Off Footwear (QC): 6 Toileting(FIM): 6 Toileting Hygiene (QC): 6 Transfers (B,C,W/C) (FIM): 6 Toilet/Commode Transfer(FIM): 6 Toilet/Commode Transfer (QC): 6 Shower Transfer(FIM): 5 Additional Goals: 1-Demonstrate ADL Tasks, 2-Verbalize Understanding, 3- ImproveStrength/Lotus 1=Demonstrate adherence to instructed precautions during ADL tasks. 2=Patient will verbalize/demonstrate understanding of assistive devices/ modifications for ADL. 3=Patient will improve strength/tolerance for activity to enable patient to perform ADL's. OT Education/Plan Discharge Recommendations Plan/Recommendations: Continue POC Treatment Plan/Plan of Care Patient would benefit from OT for education, treatment and training to promote independence in ADL's, mobility, safety and/or upper extremity function for ADL' s. Plan of Care: ADL Retraining, Functional Mobility, UE Funct Exercise/Act Treatment Duration: Feb 20, 2018 Frequency: 5 times per week Estimated Hrs Per Day: 1.5 hours per day Agreement: Yes Rehab Potential: Good Time/GCodes Start Time: 13:30 Stop Time: 14:00 Total Time Billed (hr/min): 30 Billed Treatment Time visit, 30 minutes exercise late entry for 7-3-18 MARLENY MARLEY OT Feb 12, 2018 12:39
--- NOTE | 2018-02-12 12:45 | Occupational Ther Daily Note ---
OT Current Status-Daily Note Subjective Pt seen in room, in bed, asleep but awakened and agreed to OT. reported she had had a lot of pain last night Appearance Became more awake as she was up. Very talkative. Mental Status/Objective Functional [place] Measure 0=Not Assessed/NA 4=Minimal Assistance 1=Total Assistance 5=Supervision or Setup 2=Maximal Assistance 6=Modified [place] 3=Moderate Assistance 7=Complete [place] ADL-Treatment Dressing on back covered for shower. Pt able to get up to sit EOB but struggled and needed HOB raised up. Able to don/doff back brace about 50%, with pt education. walked to bathroom, FWW and toileted mod I, BSC over toilet. Transferred into shower with SBA, shower bench and bathed with setup, supervision. Walked to w/c to complete dressing, with reminders to not get up until back brace was on. Pt able to don socks with sock aid. Completed grooming at sink at w/c level. Propelled herself to commons area to read for awhile. Functional [place] Measure 0=Not Assessed/NA 4=Minimal Assistance 1=Total Assistance 5=Supervision or Setup 2=Maximal Assistance 6=Modified [place] 3=Moderate Assistance 7=Complete IndependenceIRFPAI Quality Coding Scale 6 Independent with activity with or without an assistive device 5 Patient requires set up or clean up by helper. Patient completes activity by themselves 4 Supervision or touching assist (CGA). [place] provide cues , steadying assist 3 The helper provides less than half the effort to complete the activity 2 The helper provides more than half the effort to complete the activity 1 Dependent. The helper does all the effort to complete an activity 7 Patient refused to complete or attempt activity 9 The patient did not perform the activity before the current illness or injury 88 Not attempted due to Medical conditions or safety concerns Eating (FIM): 6 (Able to open packages, cut up food, feed herself with no AD. Has dentures) Eating (QC): 6 Grooming (FIM): 6 (Seated at sink, able to brush teeth and hair. Washed face and hands in shower) Oral Hygiene (QC): 6 Bathing (FIM): 5 (setup, supervision. Reminded at beginning of shower to not get up without back brace but started to do it at the end of shower. Able to wash and dry all parts. Shower bench, grab bars, hand held shower, long handled sponge) Shower/Bathe Self (QC): 4 (supervision) Upper Body (FIM): 6 (retrieved clean clothes, able to don bra and shirt. Mild safety concerns) Upper Body Dressing (QC): 6 Lower Body Dressing (FIM): 5 (Dresing stick, sock aid. Cues for hand placement wwhen standing. Reminder not to get up without back brace on. FWW. Supervision.) Lower Body Dressing (QC): 4 (supervision) On/Off Footwear (QC): 6 (dressing stick, sock aid) Toileting (FIM): 6 (BSC over toilet, FFWW. Able to manage clothing and hygiene , with mild safety concerns. ) Toileting Hygiene (QC): 6 Toilet/Commode Transfer (FIM): 6 (On/off BSC over toilet, grab bars, FWW. Mild safety concerns) Toilet Transfer (QC): 6 Shower Transfer(FIM): 5 (SBA getting in and out of shower, on/off shower bench) Education OT Patient Education: Modified ADL techniques, Progress toward Goal/Update tx plan, Purpose of tx/functional activities, Safety issues, Transfer techniques, Use of adapted equipment Teaching Recipient: Patient Teaching Methods: Demonstration, Discussion Response to Teaching: Verbalize Understanding, Return Demonstration, Reinforcement Needed OT Short Term Goals Short Term Goals Time Frame: Feb 06, 2018 Eating(FIM): 5 Grooming(FIM): 5 Bathing(FIM): 4 Upper Body Dressing(FIM): 4 Lower Body Dressing(FIM): 4 Toileting(FIM): 4 Transfers (B,C,W/C) (FIM): 4 (met) Toilet/Commode Transfer(FIM): 4 Shower Transfer(FIM): 4 Additional Short Term Goals: 1-Demonstrate ADL Tasks, 2-Verbalize Understanding , 3-ImproveStrength/Lotus 1=Demonstrate adherence to instructed precautions during ADL tasks. 2=Patient will verbalize/demonstrate understanding of assistive devices/ modifications for ADL. 3=Patient will improve strength/tolerance for activity to enable patient to perform ADL's. OT Group Home Goals Furniture Painter Goals Time Frame: Feb 20, 2018 Eating (FIM): 6 Eating (QC): 6 Groomin Oral Hygiene (QC): 6 Bathing(FIM): 5 Shower/Bathe Self (QC): 5 Upper Body Dressing(FIM): 6 Upper Body Dressing (QC): 6 Lower Body Dressing(FIM): 6 Lower Body Dressing (QC): 6 On/Off Footwear (QC): 6 Toileting(FIM): 6 Toileting Hygiene (QC): 6 Transfers (B,C,W/C) (FIM): 6 Toilet/Commode Transfer(FIM): 6 Toilet/Commode Transfer (QC): 6 Shower Transfer(FIM): 5 Additional Goals: 1-Demonstrate ADL Tasks, 2-Verbalize Understanding, 3- ImproveStrength/Lotus 1=Demonstrate adherence to instructed precautions during ADL tasks. 2=Patient will verbalize/demonstrate understanding of assistive devices/ modifications for ADL. 3=Patient will improve strength/tolerance for activity to enable patient to perform ADL's. OT Education/Plan Discharge Recommendations Plan/Recommendations: Continue POC (anticipate DC 02/13/18) Treatment Plan/Plan of Care Patient would benefit from OT for education, treatment and training to promote independence in ADL's, mobility, safety and/or upper extremity function for ADL' s. Plan of Care: ADL Retraining, Functional Mobility, UE Funct Exercise/Act Treatment Duration: Feb 20, 2018 Frequency: 5 times per week Estimated Hrs Per Day: 1.5 hours per day Agreement: Yes Rehab Potential: Good Time/GCodes Start Time: 09:00 Stop Time: 10:00 Total Time Billed (hr/min): 60 Billed Treatment Time visit, 60 minutes ADL MARLENY MARLEY OT Feb 12, 2018 12:45
--- NOTE | 2018-02-12 13:36 | Therapy Group Daily Note ---
Therapy Daily Group Note Patient Education Topic Other List Below (disease prevention and proper hand washing) Other/Notes Pt. participated in 12 of February lunch group PT OT session. Pt. was pleasant and social. Pts. shared their favorite 12 of February fireworks show memory as well as some of the family traditions they practiced. [place] history and 12 of February celebration tradition was shared by OT. Pt. ambulated to from group and required SBA to get in to bed after group. Call cook at hand Start Time: 12:00 Stop Time: 13:10 Total Billed Treatment Time: 70 Total Billed Treatment 1,GRP PRETTY CRUZ OCCUPATIONAL HEALTH AND SAFETY OFFICER Feb 12, 2018 13:36
[2018-02-12 18:00] VITALS: BP 132/80
[2018-02-12] MEDS: inSUlin DETERMIR 1 UNIT/0.01 ML (LEVEMIR) CHARGE PER UNIT SQ SCH (18:22)
[2018-02-12] MEDS: SIMvastatin 10 MG (ZOCOR) TAB PO SCH (20:50)
[2018-02-12] MEDS: metFORMIN XR 500 MG (GLUCOPHAGE XR) TAB PO SCH (20:50)
[2018-02-12] MEDS: traZODone 50 MG (DESYREL) TAB PO SCH (20:50)
[2018-02-13] MEDS: TEMAZEPAM 15 MG (RESTORIL) CAP PO PRN (00:42)
[2018-02-13 05:09] VITALS: BP 111/70
[2018-02-13] MEDS: inSUlin ASPART (NovoLOG) 1 UNIT/0.01 ML (CHARGE PER UNIT) SC SCH ×2 (05:12→06:25)
[2018-02-13] MEDS: MULTIVIT W/MINERALS TAB (THERAGRAN M) PO SCH (06:25)
[2018-02-13] MEDS: PREGABALIN 50 MG (LYRICA) CAP PO SCH (08:13)
[2018-02-13] MEDS: DOCUSATE SODIUM 100 MG (COLACE) CAP PO SCH (08:13)
[2018-02-13] MEDS: lisINopril 5 MG (PRINIVIL) TABLET PO SCH (08:13)
[2018-02-13] MEDS: SENNOSIDES 8.6 MG (SENOKOT) TAB PO SCH (08:13)
--- NOTE | 2018-02-13 08:55 | D/C HH Face to Face Order ---
D/C Face to Face Orders Instructions for Patient Patient Instructions/FollowUp: Follow-up appointments: Dr. Kennedy on 02/14/18 at 10:[address] Cam on 02/19/18 at 1:30 PM Millie Paul 02/20/18 at 1:00 PM Physician to follow Patient: [facility] Discharge Diet for Home: Regular Diet (CHO 60g/m ) Patient Data-Allergies,Ht & Wt Patient Allergies: Coded Allergies: famotidine (Verified Allergy, Severe, HAIR LOSS, 01/04/17) NOTIFIED ON 01/02/17 TO MEDICAL RECORDS aspirin (Unverified Allergy, Unknown, 11/23/16) hydromorphone (Unverified Allergy, Unknown, 11/23/16) triazolam (Unverified Allergy, Unknown, 11/23/16) Uncoded Allergies: TAPE (Allergy, Mild, RASH, 11/23/16) Height (Feet): 5 Height (Inches): 0.00 Weight (Pounds): 188 Weight (Ounces): 0.0 Home Health Need/Face to Face Date of Face to Face: Feb 13, 2018 Clinical Findings: Generalized weakness and fatigue, Instability, Muscle weakness, Unsteady gait I have seen Pt [id number]: Yes Discharged To: Home Diagnosis/Conditions: Spinal Stenosis with Neurogenic Claudication Patient is Homebound due to: Yuniel fall risk due to instabilty, Muscle weakness Homebound Status Due to the above stated illness, injury or surgical procedure (medical condition or diagnosis) and associated clinical findings, the patient is homebound because of his/her inability to leave home except with aid of a supportive device and/or person AND leaving the home requires a considerable and taxing effort or is medically contraindicated. Pt req the following assistanc: Walker, Wheelchair Home Health Nursing Orders Home Health Services Order: Nursing Services, Stave Cutter-Evaluate & Treat, Physical Therapy-Evaluate & Treat Diabetic education; incision monitoring Home Health Infusion Therapy Line Type: Saline Lock Site Location: Forearm Therapy Orders Therapy Orders: OT (must have SN or PT order), Physical Therapy Certify Stmt I certify that this patient is under my care and that I, a nurse practitioner or a physician; a plumber assistant working with me, had a face to face encounter that - meets the physician face to face encounter requirements with this patient as dated. I personally scribed for MARIO UNGER MD ([facility]) on 02/13/18 at 08:55. Electronically submitted by Hillary Silverio ([facility]). MARIO UNGER MD Feb 13, 2018 08:54
--- NOTE | 2018-02-13 09:35 | Therapy Team Discharge Summary ---
Therapy Discharge Summary Discharge Recommendations Date of Discharge Therapy D/C Recommendations: Home w/ Family Support, Occupational Therapy Home Care Occupational Therapy Pt was seen for skilled OT to increase her independence in basic self care after lumbar surgery. On admission she needed setup for eating, min assist grooming and toilet transfers, mod assist bathing, max assist upper body dressing and dependant lower body dressing. By discharge she had improved to modified independence iwth eating, grooming (w/c level), upper body dressing, toileting and toilet transfer and supervision for bathing, lower body dressing and shower transfers, with mild safety concerns. She needs cues to not get up without back brace on and is able to don brace herself about 50% of the time. See tx plan for goals met. Recommend home health OT. Equipment used included BSC over toilet, shower bench, dressing stick, sock aid, grab bars, hand held shower. DC OT Decreased Activ Tolerance, Decreased UE Strength, Dependent Transfers, Impaired Bed Mobility, Impaired I ADL's, Impaired Self-Care Skills, Restricted Funct UE ROM PT Research Executive Goals Prison Goals PT Research Executive Goals Time Frame: Feb 20, 2018 Transfers (B,C,W/C) (FIM): 5 Roll Left to Right (QC): 4 Sit to Lying (QC): 4 Lying-Sitting on Side/Bed(QC): 4 Sit to Stand (QC): 4 Chair/Wzb-ss-Uvmkt Xfer(QC): 4 Car Transfer (QC): 4 Gait (FIM): 5 Distance: 150' Walk 10 feet (QC): 4 Walk 10ft-Uneven Surface(QC): 4 Walk 50ft with 2 Turns (QC): 4 Walk 150 ft (QC): 4 Gait Level of Assist: 5 Gait Assistive Device: FWW Stairs (FIM): 2 # of Steps: 4 1 Step (curb) (QC): 4 4 Steps (QC): 4 12 Steps (QC): 4 Stairs Level Of Assist: 5 OT Research Executive Goals [facility] Goals Time Frame: Feb 20, 2018 Eating (FIM): 6 Eating (QC): 6 Oral Hygiene (QC): 6 Grooming(FIM): 6 Bathing(FIM): 5 Shower/Bathe Self (QC): 5 Upper Body Dressing(FIM): 6 Upper Body Dressing (QC): 6 Lower Body Dressing(FIM): 6 Lower Body Dressing (QC): 6 On/Off Footwear (QC): 6 Toileting(FIM): 6 Toileting Hygiene (QC): 6 Transfers (B,C,W/C) (FIM): 6 Toilet/Commode Transfer(FIM): 6 Toilet/Commode Transfer (QC): 6 Shower Transfer(FIM): 5 Additional Goals: 1-Demonstrate ADL Tasks, 2-Verbalize Understanding, 3- ImproveStrength/Lotus 1=Demonstrate adherence to instructed precautions during ADL tasks. 2=Patient will verbalize/demonstrate understanding of assistive devices/ modifications for ADL. 3=Patient will improve strength/tolerance for activity to enable patient to perform ADL's. MARLENY MARLEY OT Feb 13, 2018 09:35
--- NOTE | 2018-02-13 09:45 | Occupational Ther Daily Note ---
OT Current Status-Daily Note Subjective Note to document goals met only Mental Status/Objective Functional [place] Measure 0=Not Assessed/NA 4=Minimal Assistance 1=Total Assistance 5=Supervision or Setup 2=Maximal Assistance 6=Modified [place] 3=Moderate Assistance 7=Complete [place] ADL-Treatment Functional [place] Measure 0=Not Assessed/NA 4=Minimal Assistance 1=Total Assistance 5=Supervision or Setup 2=Maximal Assistance 6=Modified [place] 3=Moderate Assistance 7=Complete IndependenceIRFPAI Quality Coding Scale 6 Independent with activity with or without an assistive device 5 Patient requires set up or clean up by helper. Patient completes activity by themselves 4 Supervision or touching assist (CGA). Stephenson provide cues , steadying assist 3 The helper provides less than half the effort to complete the activity 2 The helper provides more than half the effort to complete the activity 1 Dependent. The helper does all the effort to complete an activity 7 Patient refused to complete or attempt activity 9 The patient did not perform the activity before the current illness or injury 88 Not attempted due to Medical conditions or safety concerns OT Short Term Goals Short Term Goals Time Frame: Feb 06, 2018 Eating(FIM): 5 Grooming(FIM): 5 Bathing(FIM): 4 Upper Body Dressing(FIM): 4 Lower Body Dressing(FIM): 4 Toileting(FIM): 4 Transfers (B,C,W/C) (FIM): 4 (met) Toilet/Commode Transfer(FIM): 4 Shower Transfer(FIM): 4 Additional Short Term Goals: 1-Demonstrate ADL Tasks, 2-Verbalize Understanding , 3-ImproveStrength/Lotus 1=Demonstrate adherence to instructed precautions during ADL tasks. 2=Patient will verbalize/demonstrate understanding of assistive devices/ modifications for ADL. 3=Patient will improve strength/tolerance for activity to enable patient to perform ADL's. OT Manager Of Loss Prevention Operations Goals Manager Of Loss Prevention Operations Goals Time Frame: Feb 20, 2018 Eating (FIM): 6 (met 18) Eating (QC): 6 (met 18) Groomin (met 18) Oral Hygiene (QC): 6 (met -18) Bathing(FIM): 5 (met 18) Shower/Bathe Self (QC): 5 (not met 02-12-18) Upper Body Dressing(FIM): 6 (met 7-4-18) Upper Body Dressing (QC): 6 (met 7-4-18) Lower Body Dressing(FIM): 6 (not met 7--18) Lower Body Dressing (QC): 6 (not met 7--18) On/Off Footwear (QC): 6 (met 7--18) Toileting(FIM): 6 (met 7--18) Toileting Hygiene (QC): 6 (met 7--18) Transfers (B,C,W/C) (FIM): 6 Toilet/Commode Transfer(FIM): 6 (met 7--18) Toilet/Commode Transfer (QC): 6 (met 7-18) Shower Transfer(FIM): 5 (met 7--18) Additional Goals: 1-Demonstrate ADL Tasks, 2-Verbalize Understanding, 3- ImproveStrength/Lotus 1=Demonstrate adherence to instructed precautions during ADL tasks. 2=Patient will verbalize/demonstrate understanding of assistive devices/ modifications for ADL. 3=Patient will improve strength/tolerance for activity to enable patient to perform ADL's. OT Education/Plan Discharge Recommendations Plan/Recommendations: Discharge/Goals Met (see tx plan for specifics) Treatment Plan/Plan of Care Patient would benefit from OT for education, treatment and training to promote independence in ADL's, mobility, safety and/or upper extremity function for ADL' s. Plan of Care: ADL Retraining, Functional Mobility, UE Funct Exercise/Act Treatment Duration: Feb 20, 2018 Frequency: 5 times per week Estimated Hrs Per Day: 1.5 hours per day Agreement: Yes Rehab Potential: Good Time/GCodes Start Time: 00:00 Stop Time: 00:00 Total Time Billed (hr/min): 0 Billed Treatment Time note for documenting goals met only MARLENY MARLEY OT Feb 13, 2018 09:45
--- NOTE | 2018-02-13 11:01 | Therapy Team Discharge Summary ---
Therapy Discharge Summary Discharge Recommendations Date of Discharge Therapy D/C Recommendations: Home w/ Family Support, Occupational Therapy Home Care Physical Therapy Patient came to rehab s/p L3-S1 laminectomy. Upon evaluation patient performed rolling with min assist, supine to sit with mod assist, sit to stand with CGA, and stand pivot transfers with CGA, ambulated 20' with a rolling walker with CGA , and was dependent for wheelchair mobility. Patient has been performing bed mobility and transfer training, balance and endurance training, functional strengthening, stair training, gait training, and education. 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 Now, patient performs bed mobility and transfers with mod I, car transfer with SBA, ambulates 170' with a rolling walker with mod I (including 50' with at least 2 turns of 90 degrees and 10' over an uneven surface), and can go up and down 4 steps using 1 handrail with min assist. Patient is being discharged from this facility today and will be discharged from PT at this time. Occupational Therapy Decreased Activ Tolerance, Decreased UE Strength, Dependent Transfers, Impaired Bed Mobility, Impaired I ADL's, Impaired Self-Care Skills, Restricted Funct UE ROM PT Half-Way Goals Nurse Anesthetist Goals PT Nurse Anesthetist Goals Time Frame: Feb 20, 2018 Transfers (B,C,W/C) (FIM): 5 Roll Left to Right (QC): 4 Sit to Lying (QC): 4 Lying-Sitting on Side/Bed(QC): 4 Sit to Stand (QC): 4 Chair/Ycj-il-Lfjra Xfer(QC): 4 Car Transfer (QC): 4 Gait (FIM): 5 Distance: 150' Walk 10 feet (QC): 4 Walk 10ft-Uneven Surface(QC): 4 Walk 50ft with 2 Turns (QC): 4 Walk 150 ft (QC): 4 Gait Level of Assist: 5 Gait Assistive Device: FWW Stairs (FIM): 2 # of Steps: 4 1 Step (curb) (QC): 4 4 Steps (QC): 4 12 Steps (QC): 4 Stairs Level Of Assist: 5 OT Half-Way Goals Nurse Anesthetist Goals Time Frame: Feb 20, 2018 Eating (FIM): 6 (met 7-4-18) Eating (QC): 6 (met 7-4-18) Oral Hygiene (QC): 6 (met 7-4-18) Grooming(FIM): 6 (met 18) Bathing(FIM): 5 (met 18) Shower/Bathe Self (QC): 5 (not met -18) Upper Body Dressing(FIM): 6 (met -18) Upper Body Dressing (QC): 6 (met -18) Lower Body Dressing(FIM): 6 (not met 18) Lower Body Dressing (QC): 6 (not met 18) On/Off Footwear (QC): 6 (met 02-12-18) Toileting(FIM): 6 (met 02-12-18) Toileting Hygiene (QC): 6 (met 02-12-18) Transfers (B,C,W/C) (FIM): 6 Toilet/Commode Transfer(FIM): 6 (met 02-12-18) Toilet/Commode Transfer (QC): 6 (met 02-12-18) Shower Transfer(FIM): 5 (met 02-12-18) Additional Goals: 1-Demonstrate ADL Tasks, 2-Verbalize Understanding, 3- ImproveStrength/Lotus 1=Demonstrate adherence to instructed precautions during ADL tasks. 2=Patient will verbalize/demonstrate understanding of assistive devices/ modifications for ADL. 3=Patient will improve strength/tolerance for activity to enable patient to perform ADL's. PJ MONTOYA PT Feb 13, 2018 11:01
--- NOTE | 2018-02-13 17:16 | PM & R (SOAP) Progress Note ---
Subjective This was a face to face visit with the patient. Date Seen by Provider: Feb 13, 2018 Time Seen by Provider: 11:00 Subjective/Events-last exam Patient discharged to home with her daughter and HHC Current meds reviewed and RXS provided as needed. Review of Systems anxiety Objective Physician Exam Last Set of Vital Signs Vital Signs Date Time Temp Pulse Resp B/P (MAP) Pulse Ox O2 Delivery O2 Flow Rate FiO2 02/13/18 09:00 Room Air 02/13/18 05:09 98.9 83 18 111/70 (84) 100 Capillary Refill : I&O Intake and Output 02/13/18 00:00 Intake Total 1125 ml Balance 1125 ml Intake Oral 1125 ml # Voids 6 # Bowel Movements 3 General: Alert, Oriented X3, No Acute Distress HEENT: Atraumatic Neck: Supple, No JVD Lungs: Clear to Auscultation, Normal Air Movement, Other (even and unlabored) Heart: Regular Rate, Normal S1, Normal S2, Other (aortic stenosis murmur) Abdomen: Normal Bowel Sounds, Soft, No Tenderness, Other (Abdominal corset in place) Extremities: No Clubbing, No Cyanosis, Other (Trace edeam in ankles) Skin: No Rashes, No Breakdown, Other (Has ROBIN drain and Indwelling Sanchez catheter to DD) Neuro: Normal Speech, Normal Tone, Cranial Nerves 3-12 NL Psych/Mental Status: Mental Status NL, Mood NL Results Lab Data Laboratory Tests 02/10/18 21:19: Glucometer 295H 02/11/18 06:36: Glucometer 113H 02/11/18 10:58: Glucometer 247H 02/11/18 15:36: Glucometer 137H 02/11/18 21:27: Glucometer 242H 02/12/18 06:24: Glucometer 101 02/12/18 11:26: Glucometer 168H 02/12/18 16:14: Glucometer 196H 02/12/18 20:46: Glucometer 308H 02/13/18 04:52: Glucometer 103 Assessment/Plan Assessment and Plan Home today with HHC and Daughter F/U with PCP at [facility] and Ortho psine see orders (1) Spinal stenosis, lumbar region, with neurogenic claudication Status: Resolved Co-Morbidities that are continuing to impact the rehab process: (include details ) MARIO UNGER MD Feb 13, 2018 17:16
--- NOTE | 2018-02-19 23:55 | DISCHARGE SUMMARY ---
DATE OF SERVICE: 02/13/2018 HISTORY OF PRESENT ILLNESS: The patient is a 77-year-old female who has been independent, but having increasing low back pain with radiculopathy, was admitted to [facility] on 01/27/2018 that for outpatient assessment in follow up by Dr. Kennedy, ortho spine. The patient underwent a corrective surgery and was referred to inpatient rehabilitation unit for ongoing therapies. She is followed by Dr. Florentino as well from [facility]. A chest x-ray revealed infiltrates suspicious for aspiration pneumonitis versus aspiration pneumonia. Urine culture showed no growth. The patient was started on IV antibiotics empirically, but then switched over to Augmentin for a 7-day course. Please see details of history and physical for further information on surgery. She has an indwelling Sanchez catheter for bladder management postoperatively and has a lumbar corset for support postoperatively. She had been independent prior to this. PAST MEDICAL HISTORY: Type 2 diabetes mellitus, hypertension, lumbar spinal stenosis with neurogenic claudication and radiculopathy, heart murmur with severe aortic stenosis, moderate to severe concentric left ventricular hypertrophy. The patient is on SCDs for DVT prophylaxis postoperatively. The patient has had a cholecystectomy with common bile duct obstruction treated with ERCP in [place], a , knee and shoulder surgery. She lives in [place], [place]. She is a and lives alone. She has a supportive family nearby; however. MEDICAL COURSE: The patient was followed by Dr. Barker in the [facility] as well as Dr. Vasquez, cardiology. The patient was afebrile during her stay. Her pulse is 83 on 02/13/2018, respirations 18, blood pressure 111/70, O2 sat 100% on room air. The patient has some increased pain postoperatively. Radiographs revealed good alignment of hardware. Medications were adjusted for pain management. The patient had postop constipation causing distress, this was treated. CBC on 02/08/2018 showed WBC 4.0, H and H 8.7/26 platelet count 229 K. Chemistry showed normal electrolytes, BUN elevated at 26 on 02/08/2018. Total protein 6.2. Glucometer readings from 02/11 to 02/13 varied between 308 and 103. Her incision was healing well. The patient's hemoglobin did improve from 8.4 on 02/02/2018 from 8.2 on 02/03/2018. REHABILITATION COURSE: The patient was assessed by speech therapy upon admission and found to be cognitively intact. They signed off. OT notes upon admission, she required set up for eating, min assist for grooming and toilet transfers, mod assist for bathing, max assist for upper body dressing and was dependent for lower body dressing. By discharge, she had improved to modified independence with eating, grooming, upper body dressing, toileting and toilet transfers at the wheelchair level and supervision for bathing, lower body dressing and shower transfers with mild safety concerns. PT notes upon admission, the patient was min assist for bed mobility, mod assist for transfers. She was dependent for wheelchair mobility. She ambulated 20 feet with a wheeled walker with contact guard. The patient made good progress and upon discharge, she is modified independent for bed mobility and transfers, standby assist for car transfers, can ambulate 170 feet with a wheeled walker with modified independence and can go up and down four steps using one handrail with min assist. DISCHARGE INSTRUCTIONS: The patient is discharged to home with home health services and family. She will have followup with [facility] and ortho spine. Continue current diet and home Accu-Cheks. DISCHARGE MEDICATIONS: Fentanyl patch 25 mcg topically every 3 days, a 15-day supply provided, Zanaflex 2 mg p.o. q.6 hours p.r.n. muscle spasm, tramadol 50 to 100 mg p.o. t.i.d. p.r.n. moderate pain, trazodone 50 mg p.o. at bedtime, Dulcolax tablet 5 mg p.o. b.i.d. p.r.n. constipation, NovoLog insulin 10 units subcu a.c., Levemir insulin 40 units subcu in the evening at supper hour, lisinopril 5 mg p.o. daily, lorazepam 2 mg p.o. at bedtime p.r.n. sleep, metformin 500 mg p.o. at bedtime, multivitamin 1 tablet p.o. daily, fish oil 1000 mg p.o. b.i.d., pravastatin 20 mg p.o. at bedtime, Lyrica 50 mg p.o. b.i.d., temazepam 30 mg p.o. at bedtime p.r.n. insomnia. DISCHARGE DIAGNOSES: 1. Rehabilitation and lumbar stenosis with neurogenic claudication status post bilateral laminectomies with facetectomies and foraminotomies L3-L4, L4-L5 and L5-S1 with transforaminal lumbar interbody fusion L5-S1, application of titanium cage L5-S1 posterior spinal instrumentation L3-L4, L4-L5 and L5-S1, posterior spinal fusion L3-L4, L4-L5, L5-S1, use of human Allograft for spine, use of local bone autograft and use of local bone autograft and repair durotomy, Dr. Kennedy, 01/27/2018. 2. Diabetes mellitus type 2, controlled with medication. 3. Postop constipation, treated. 4. Atelectasis, treated. 5. Hypertension, controlled with medication 6. Aortic stenosis, on meds. 7. Obesity. 8. Anxiety, on meds. 9. Postop anemia, improved. 10. Thrombocytopenia, improved. 11. History of falls. 12. Long-term use insulin. 13. BMI 36.7. CONDITION AT DISCHARGE: Improved and stable. PROGNOSIS: Rehab prognosis appears good for some continued improvement at home and return to independent living. Job ID: [id number] DocumentID: [id number] Dictated Date: 02/19/2018 11:01:59 It Technical Specialist Date: 02/19/2018 23:54:14 Dictated By: MARIO BARKER MD
== END 2018-02-13 11:00 | disposition home health service (06) | DRG 560 ==
PROVIDERS: ADMIT Physical Medicine & Rehabilitation; ATTEND Physical Medicine & Rehabilitation
DX: Z47.89 Encounter for other orthopedic aftercare (principal); Z98.1 Arthrodesis status; E11.9 Type 2 diabetes mellitus without complications; J98.11 Atelectasis; I10 Essential (primary) hypertension; I35.0 Nonrheumatic aortic (valve) stenosis; E66.9 Obesity, unspecified; F41.9 Anxiety disorder, unspecified; D64.9 Anemia, unspecified; D69.6 Thrombocytopenia, unspecified; K59.00 Constipation, unspecified; Z91.81 History of falling; Z79.4 Long term (current) use of insulin; Z68.36 Body mass index [BMI] 36.0-36.9, adult
CPT/HCPCS: 36415; 72100; 80053; 80061; 82962; 85014; 85018; 85025; 85027; 86850; 86900; 86901; 93005

== ENCOUNTER → 2018-02-20 | Outpatient (CLI) | payer MEDICARE ==
[~2018-02-20] MED LIST changes: +CALC600T12 PO; +CYAN10006 PO; +FENT1PAT57 TD; +FENT1PAT8 TD; +FLUO20DR4 TOP; +LORA2TAB PO; +PYRI100T2 PO; +TRAM50TA2 PO; +TRAZ-189 PO
--- NOTE | 2018-02-20 14:07 | Diagnostic Imaging Report ---
PROCEDURE: CT lumbar spine without contrast. TECHNIQUE: Multiple contiguous axial images were obtained through the lumbar spine without the use of intravenous contrast. Sagittal and coronal reformations were then performed. INDICATION: Back pain. FINDINGS: Curvature and alignment of the lumbar spine is normal. There are postop changes of posterior instrumented fusion and decompression laminectomy extending from L3 through S1. These levels are transfixed by vertical stabilization rods and bipedicular screws. Intervertebral hardware is also seen at L5-S1. The hardware appears intact. No definite evidence of fracture or loosening is seen. Vertebral body heights appear maintained. There is central compression deformity of the L2 vertebral body. There is cement within this vertebral body consistent with prior kyphoplasty. Overall stature similar to MRI from 01/22/2018. No acute bony abnormality is seen. Paraspinous tissues are unremarkable. IMPRESSION: Severe lumbar spondylosis with postop changes of posterior instrumented fusion and decompression laminectomy from L3 through S1. No hardware fracture or loosening is seen. No complicated features are detected. Dictated by: Dictated on workstation # [id number]
== END ==
LOC: RAD 11:08
PROVIDERS: ATTEND Physician Assistant
DX: M47.816 Spondylosis without myelopathy or radiculopathy, lumbar region (principal); Z98.1 Arthrodesis status
CPT/HCPCS: 72131

== ENCOUNTER 2018-02-21 11:05 | Day surgery (SDC) | payer MEDICARE ==
[2018-02-21] VITALS (9 sets, daily range): BP systolic 152–212; BP diastolic 59–113
[~2018-02-21] VITALS: Ht 152.4 cm; Wt 69.9 kg
[~2018-02-21 11:05] MED LIST changes: -CALC600T12 PO; -CYAN10006 PO; -FENT1PAT57 TD; -FLUO20DR4 TOP; -PYRI100T2 PO
[2018-02-21] MEDS ORDERED: LIDOCAINE 1% INJ 20 ML 20 ML VIAL ONE (11:09)
[2018-02-21] MEDS ORDERED: NS IV 1000 ML 1,000 ML ONE (11:09)
[2018-02-21] MEDS ORDERED: HEParin (CATH LAB) 2,000 ML IV ONE (11:10)
[2018-02-21] MEDS ORDERED: NS IV 1000 ML 1,000 ML IV SCH ×2 (11:30→14:49)
[2018-02-21 11:54] LABS: HEMOGLOBIN 9.7 G/DL (11.5-16.0); RED BLOOD COUNT 2.93 10^6/uL (4.35-5.85); RED CELL DISTRIBUTION WIDTH 15.5 % (10.0-14.5); WHITE BLOOD COUNT 3.9 10^3/uL (4.3-11.0)
[2018-02-21 12:03] LABS: INR 1.1 (0.8-1.4); PROTHROMBIN TIME PATIENT 14.4 SEC (12.2-14.7)
[2018-02-21 12:13] LABS: ALANINE AMINOTRANSFERASE 8 U/L (0-55); ALBUMIN 3.9 GM/DL (3.2-4.5); ALKALINE PHOSPHATASE 118 U/L (40-136); BILIRUBIN,TOTAL 0.7 MG/DL (0.1-1.0); BUN/CREATININE RATIO 25; CALCIUM 9.6 MG/DL (8.5-10.1); CARBON DIOXIDE 26 MMOL/L (21-32); CHLORIDE 102 MMOL/L (98-107); CREATININE SERUM 0.76 MG/DL (0.60-1.30); GFR ESTIMATED > 60; GLUCOSE 121 MG/DL (70-105); POTASSIUM 3.7 MMOL/L (3.6-5.0); SODIUM 139 MMOL/L (135-145); TOTAL PROTEIN 7.4 GM/DL (6.4-8.2)
[2018-02-21] MEDS ORDERED: TRAM50TA2 PO (13:02)
[2018-02-21] MEDS ORDERED: TIZA4TAB3 PO (13:02)
[2018-02-21] MEDS ORDERED: PANT40TA3 PO (13:02)
[2018-02-21] MEDS ORDERED: FENT1PAT57 TD (13:02)
[2018-02-21] MEDS ORDERED: TRAZ-189 PO (13:02)
[2018-02-21] MEDS ORDERED: CALC600T12 PO (13:13)
[2018-02-21] MEDS ORDERED: FLUO20DR4 TOP (13:13)
[2018-02-21] MEDS ORDERED: PYRI100T2 PO (13:13)
[2018-02-21] MEDS ORDERED: HYDR-3812 PO (13:13)
[2018-02-21] MEDS ORDERED: CYAN10006 PO (13:13)
--- NOTE | 2018-02-21 13:34 | Cardiac Procedure Note-CS/ASA ---
Pre-Procedure Note Pre-Op Procedure Note H&P Reviewed The H&P was reviewed, patient examined and no changes noted. Date H&P Reviewed: Feb 21, 2018 Time H&P Reviewed: 13:34 Conscious Sedation Pre-Proced Time Reviewed: 13:34 ASA Class: 3 Airway Mallampati Classification: ([place] appropriate class) I. II. III, IV Lungs Heart ASA score ASA 1: a normal healthy patient ASA 2: a patient with a mild systemic disease (mid diabetes, controlled hypertension, obesity ASA 3: a patient with a severe systemic disease that limits activity (angina , COPD, prior Myocardial infarction) ASA 4: a patient with an incapacitating disease that is a constant threat to life (CHF, renal failure) ASA 5: a moribund patient not expected to survive 24 hrs. (ruptured aneurysm) ASA 6: a declared brain patient whose organs are being harvested. For emergent operations, add the letter E after the classification Grade 1 Sedation Plan: Analgesia, Amnesia, Plan communicated to team members, Discussed options with patient/fam, Discussed risks with patient/fam Note The patient is an appropriate candidate to undergo the planned procedure, sedation, and anesthesia. The patient immediately re-assessed prior to indication. Aniket BO MD Feb 21, 2018 1:34 pm
[2018-02-21] MEDS ORDERED: fentaNYL INJECTION 100 MCG/2 ML AMP ONE (13:46)
[2018-02-21] MEDS ORDERED: MIDAZOLAM 5 MG/5 ML (VERSED) VIAL ONE (13:46)
[2018-02-21] MEDS ORDERED: NITRO DRIP 25000 MCG/D5W 250 ML IV ONE (13:47)
[2018-02-21] MEDS ORDERED: VERAPAMIL 5 MG/2 ML (CALAN) VIAL IV ONE (13:47)
[2018-02-21] MEDS ORDERED: HEParin 1000 UNIT/ML (10ML VIAL) FOR BOLUS ONE (13:47)
--- NOTE | 2018-02-21 14:49 | Coronary Angiography Report ---
Coronary Angiography Report DATE OF PROCEDURE: 02/21/18 INDICATION: Severe aortic stenosis PREOPERATIVE DIAGNOSIS: Severe aortic stenosis POSTOPERATIVE DIAGNOSIS: No significant CAD, severe aortic stenosis HISTORY: This is a 77-year-old lady with severe aortic stenosis. Coronary evaluation is required before surgery. Therefore, the patient was scheduled for coronary angiography. PROCEDURES PERFORMED: 1.Coronary angiography. 2.aortic arch angiography COMPLICATIONS: None. SPECIMENS: None. ESTIMATED BLOOD LOSS: 10 mL ANESTHESIA: Conscious sedation ANTICOAGULATION: IV heparin CONTRAST: 92 mL. FLUOROSCOPY: 9.7 minutes. FLOUROSCOPY DOSE: [id number] mgy. PROCEDURE DETAILS: The patient is a 77 female and was brought to the lab animal technician after informed consent was taken. All the risks and complications were explained in detail; this included the risk of bleeding, vascular damage, stroke , [place] and even . The patient was draped and prepped in the usual sterile fashion. Access was gained in the right radial artery with a 6 [place] sheath. Coronary angiography and aortic arch angiography was performed with the [place] catheter. FINDINGS: 1.Left main: Patent. 2.LAD: Mild mid disease. 3.Left circumflex artery: Patent. 4.RCA: Patent. 5.Left heart catheterization: Not done because we could not cross the valve due to severe aortic stenosis. 6. Aortic arch angiography: No evidence of dissection or aneurysm. Patent proximal segments of the great arteries including brachycephalic artery, common carotid artery and subclavian artery. CONCLUSIONS: Severe aortic stenosis with no significant CAD. Refer for aortic valve surgery. Juan C Cam MD, FACP, FACC, [facility] Interventional Cardiology Aniket CAM MD Feb 21, 2018 2:49 pm
--- NOTE | 2018-02-21 14:53 | Discharge Inst-Post CATH ---
Discharge Inst-CATH Post Cardiac Cath D/C Inst Follow Up/Plan Follow-up in Dr. Vasquez after surgery. CARDIAC CATH DISCHARGE INSTRUCTIONS *Hold Metformin for 48 hours post heart cath. ACTIVITY * Go Home directly and rest. * Limit activity of the leg (or wrist if it was used) for 7 days including aerobics, swimming, jogging, bicycling, etc. * Restrict stair-climbing for 7 days if possible, if not, climb up with your non -cath leg, then bring together on the same step. * Avoid lifting, pushing, pulling or excessive movement of the affected extremity for 7 days. * Customary sexual activity may be resumed after 2 days-use caution not to use a position that strains or causes pain to the affected extremity. * No driving for 24 hours. * NO SMOKING. * Avoid straining for bowel movements for 7 days. * Gentle walking on level ground is allowed. * Returning to work will depend on the type of procedure and the results. Your doctor will discuss this with you. CALL YOUR DOCTOR FOR ANY OF THE FOLLOWING: *If bleeding from the puncture site occurs- Apply gentle pressure to site with clean cloth and call your doctor or EMS. * If a knot or lump forms under the skin, increases in size, or causes pain. * If bruising appears to be worsening or moving further down your leg instead of disappearing. * Temperature above 101 F. CARE OF YOUR GROIN INCISION; * Bruising or purple discoloration of the skin near the puncture site is common. * You may shower only, no bathtub bathing for 5 days. Be careful to avoid slipping as your leg may feel stiff. * If a closure device was used on your femoral artery, please see the attached guide regarding care of the device and your leg. * REMOVE the dressing from your groin the next day after your procedure in the shower. CARE OF YOUR WRIST INCISION; * Bruising or purple discoloration of the skin near the puncture site is common. * You may shower. * DO NOT submerge wrist. * Remove dressing in 24 hours. Aniket BO MD Feb 21, 2018 2:53 pm
--- NOTE | 2018-02-21 14:55 | Cardiology Discharge Summary ---
Diagnosis/Chief Complaint Date of Admission 02/21/2018 Date of Discharge 02/21/2018 Admission Diagnosis Severe aortic stenosis, chest pain, shortness of breath Final/Discharge Diagnosis Severe aortic stenosis, no significant CAD Chief Complaint/HPI Chief Complaint/HPI This is 77-year-old lady with severe aortic stenosis. Coronary angiography is recommended before surgery. Discharge Summary Procedures Coronary angiography showed no significant coronary disease. Discharge Physical Examination Stable Hospital Course Unremarkable Pending Labs Laboratory Tests 02/21/18 11:45: White Blood Count 3.9, Red Blood Count 2.93, Hemoglobin 9.7, Hematocrit 30, Mean Corpuscular Volume 101, Mean Corpuscular Hemoglobin 33, Mean Corpuscular Hemoglobin Concent 33, Red Cell Distribution Width 15.5, Platelet Count 220, Mean Platelet Volume 10.0, Prothrombin Time 14.4, INR Comment 1.1, Activated Partial Thromboplast Time 33, Sodium Level 139, Potassium Level 3.7, Chloride Level 102, Carbon Dioxide Level 26, Anion Gap 11, Blood Urea Nitrogen 19, Creatinine 0.76, Estimat Glomerular Filtration Rate > 60, BUN/Creatinine Ratio 25, Glucose Level 121, Calcium Level 9.6, Total Bilirubin 0.7, Aspartate Amino Transf (AST/SGOT) 19, Alanine Aminotransferase (ALT/SGPT) 8, Alkaline Phosphatase 118, Total Protein 7.4, Albumin 3.9 Discussion & Recommendations Discussion Patient will be referred for cardiac surgery. Post catheter discharge instructions provided. Follow up appt.: With Dr. Vasquez after cardiac surgery. Activity as Tolerated: Yes Home Medications Reviewed patient Home Medication Reconciliation performed by pharmacy medication reconciliations substation maintenance technician and/or nursing. Patients Allergies have been reviewed. Discharge Home Medications: Reviewed and agree with Discharge Medication list on patient's Discharge Instruction sheet Condition at discharge Stable. Instructions to patient/family Follow-up in Dr. Vasquez after surgery. Aniket BO MD Feb 21, 2018 2:55 pm
[2018-02-21] MEDS ORDERED: PATIENT MAY USE OWN MEDS, ALL PO SCH (15:00)
== END 2018-02-21 17:55 | disposition home or self-care (01) ==
LOC: CATH 11:05 → ICU 15:02 → CATH 17:55
PROVIDERS: ATTEND Internal Medicine Interventional Cardiology
DX: I35.0 Nonrheumatic aortic (valve) stenosis (principal); I10 Essential (primary) hypertension; E78.5 Hyperlipidemia, unspecified; E11.9 Type 2 diabetes mellitus without complications; Z79.4 Long term (current) use of insulin; Z79.899 Other long term (current) drug therapy
CPT/HCPCS: 36221; 36415; 80053; 85027; 85610; 85730; 87081; 93454